=== PATIENT | female | born 1950 | race Caucasian/White ===

== ENCOUNTER 2023-10-08 17:20 | Observation (INO) | payer OTHER, SELFPAY ==
[2023-10-08 12:53] VITALS: BP 157/75
[2023-10-08 13:44] LABS: % Basophils 0.2 % (0-2); % Eosinophils 1.5 % (0-6); % Immature Granulocytes 0.3 % (0-0.5); % Lymphocytes 9.6 % (20.5-51.1); % Neutrophils 80.4 % (42.2-75.2); Absolute Eosinophils 0.1 10^3/uL (0-0.7); Absolute Lymphocytes 0.9 10^3/uL (1.2-3.4); Absolute Monocytes 0.7 10^3/uL (0.1-0.6); Absolute Neutrophils 7.4 10^3/uL (1.4-6.5); Hemoglobin 9.2 g/dL (12.0-16.0); Mean Corp Hgb Conc. 29.7 g/dL (33.0-37.0); Mean Corpuscular Hgb 22.2 pg (27.0-31.0); Mean Corpuscular Volume 74.7 fL (81.0-99.0); Mean Platelet Volume 9.7 fL (7.4-10.4); Nucleated Red Blood Cells % 0 %; Platelet Count 546 10^3/uL (130-400); Red Blood Cell Count 4.15 10^6/uL (4.20-5.40); Red Cell Dist. Width 19.7 % (11.5-14.5); White Blood Cell Count 9.2 10^3/uL (4.8-10.8)
[2023-10-08 14:16] LABS: Troponin I 0.013 ng/ml
[2023-10-08 14:27] LABS: ALT (SGPT) 13 U/L (0-35); AST (SGOT) 21 U/L (14-36); Albumin 3.3 g/dl (3.5-5.0); Alkaline Phosphatase 101 U/L (38-126); Blood Urea Nitrogen 15 mg/dl (7-17); Calcium 8.6 mg/dl (8.4-10.2); Carbon Dioxide 35 mmol/L (22-30); Chloride 100 mmol/L (98-107); Glucose 88 mg/dl (70-99); Magnesium 1.8 mg/dl (1.6-2.3); Potassium 2.6 mmol/L (3.5-5.1); Sodium 139 mmol/L (135-145); Total Bilirubin 0.5 mg/dl (0.2-1.3); Total Protein 6.4 g/dl (6.3-8.2); eGFR > 60.00
--- NOTE | 2023-10-08 15:04 | ED.GENMED ---
History of Present Illness
General
Chief Complaint: Abnormal Lab Value
Source: patient
Time Seen by Provider: 10/08/23 13:24
Travel History
Have you had any contact with someone who has COVID-19?: Unable to Answer
Do you have any symptoms of coronavirus? Fever > 100 degrees, chills, cough, shortness of breath, sore throat, loss of taste or smell, muscle aches, or headache?: No
History of Present Illness
History of Present Illness:
73-year-old female with past medical history of hypertension, hyperlipidemia, CAD presenting to the emergency department for evaluation after her cardiology office contact her to let her know outpatient lab work revealed a low potassium. Patient
states that she was just having routine blood work done when this was found. She notes that 'while not feeling as well as she did 2 years ago she feels pretty normal'. She denies any chest pain, palpitations, diaphoresis, exertional dyspnea,
abdominal pain, nausea, vomiting, diarrhea. Patient does take a daily Lasix tablet. She denies any history of similar. No other concerns at this time.
Past History
Past History
ED Past Medical History: CAD, GERD, HTN, Hypercholesterolemia and Other (Iron deficiency anemia, peptic ulcer disease)
ED Past Surgical History: Cholecystectomy and Other (Partial gastrectomy)
Social History
Tobacco: Smoker
Alcohol: None
Drug: None
Personal:
Living: with family
Review of Systems
Review of Systems
All Other Systems: ROS reviewed and negative except as documented in HPI and ROS
Phy Exam
Physical Exam
Physical Exam:
GENERAL: Alert , in no apparent distress, very thin, oxygen saturation is between 87 and 90% on room air but patient is in no acute respiratory distress
EYE: conjunctiva clear
NECK: Supple
ENT: o/p clr, mmm.
CARDIAC: Regular rate and rhythm
LUNGS: Clear breath sounds bilaterally, no acute respiratory distress, no wheezes/rales/rhonchi
NEUROLOGICAL: Alert and oriented
SKIN: Warm and dry, skin intact.
MUSCULOSKELETAL: well perfused.
PSYCH: Normal and appropriate interaction.
Scores
Heart Failure Risk
Heart Failure Risk Score: Not Applicable
Heart Score for Chest Pain Patients
STEMI patient?: Not applicable
Withdrawal Assessment of Alcohol
Withdrawal Assessment Completed?: Not applicable
Course
Orders/Labs/Results
Orders:
Orders
10/08/23 12:57
Electrocardiogram (*1) Urgent
Reason for Study: Chest Pain
EKG- Treatment ONCE
10/08/23 13:15
Add On- LAB Urgent
Tests Added?: magnesium
10/08/23 13:35
Complete Blood Count/With Diff Urgent
Comprehensive Metabolic Panel Urgent
Magnesium Urgent
Troponin I Urgent
10/08/23 14:51
COVID-19 Antigen Urgent
Source: Nasal Swab
CR Chest - 2 Views Urgent
Comment:
Reason For Exam: hypoxia
10/08/23 15:03
Potassium Chloride [KCl] 40 meq PO NOW STA
10/08/23 15:09
Potassium Chloride [KCl] 40 meq 0.9% Sodium Chloride 250 ml [Nss] 250 ml IV NOW
Abnormal Lab Results
10/08/23
13:35
RBC 4.15 L 10^6/uL
(4.20-5.40)
Hgb 9.2 L g/dL
(12.0-16.0)
Hct 31.0 L %
(37.0-47.0)
MCV 74.7 L fL
(81.0-99.0)
MCH 22.2 L pg
(27.0-31.0)
MCHC 29.7 L g/dL
(33.0-37.0)
RDW 19.7 H %
(11.5-14.5)
Plt Count 546 H 10^3/uL
(130-400)
Absolute Neuts (auto) 7.4 H 10^3/uL
(1.4-6.5)
Absolute Lymphs (auto) 0.9 L 10^3/uL
(1.2-3.4)
Absolute Monos (auto) 0.7 H 10^3/uL
(0.1-0.6)
Neutrophils % 80.4 H %
(42.2-75.2)
Lymphocytes % 9.6 L %
(20.5-51.1)
Potassium 2.6 L* mmol/L
(3.5-5.1)
Carbon Dioxide 35 H mmol/L
(22-30)
Creatinine 0.5 L mg/dL
(0.6-1.0)
Albumin 3.3 L g/dl
(3.5-5.0)
10/08/23 13:35
10/08/23 13:35
Vital Signs
Initial and Last Documented VS:
Initial Vital Signs
Temp Pulse Resp BP Pulse Ox
98.4 F 85 18 157/75 92
10/08/23 12:53 10/08/23 12:53 10/08/23 12:53 10/08/23 12:53 10/08/23 12:53
Last Documented Vital Signs
Temp Pulse Resp BP Pulse Ox
98.4 F 85 18 157/75 92
10/08/23 12:53 10/08/23 12:53 10/08/23 12:53 10/08/23 12:53 10/08/23 12:53
MDM/Problems Addressed
Differential Diagnosis Includes:
Hypokalemia secondary to diuretic usage, she has no GI symptoms that would lead to a low potassium. At this time unclear etiology of patient's hypoxia and she is noting no respiratory complaints. Patient does have a smoking history so I do suspect
there could be an underlying component of COPD
MDM/Problems Addressed:
73-year-old female presenting emergency department for evaluation of low potassium. Labs were initiated in triage which reveals a mild anemia as well as a potassium level of 2.6. Magnesium within normal limits. I suspect patient's Lasix to be the
culprit of her hypokalemia. Will order oral and IV repletion. Patient's oxygen saturation was persistently in the upper 80s during my exam but she is in no acute respiratory distress. Chest x-ray and COVID testing ordered. Plan for admission.
*Radiology
Radiology exam reviewed: preliminary read by ED provider (Unremarkable chest x-ray)
*Pulse Oximetry
Patient hypoxic: yes
*EKG
Interpreted by ED Provider?: Yes
Comparison EKG: no changes
Heart Rate: 73
Rate: normal
Rhythm: sinus
[place]: left axis deviation
QRS Pattern: left bundle branch block
*Molding Machine Tender Interpretation
Rate: normal
Rhythm: sinus
*Critical Care Note
Total Time (30-74mins, 75-104mins- exclusive of procedures): Not Applicable
Data Reviewed
Review of Other/Old Records Reveals: Labs and Records
Source: patient
Patient Management
Discussion with other providers: Hospitalist
Escalation/DeEscalation of care consider admission/obs:
Hospitalist is aware and accepts patient for continued evaluation and treatment.
ED Attending Note
-
Portions of this chart may have been created with voice recognition software.� Occasional wrong word or��sound alike� substitutions may have occurred due to the inherent limitations of voice recognition software.
Discharge Plan
Departure
Patient Disposition: Admit
Date of Disposition: 10/08/23
Time of Disposition: 15:05
Presentation/result/management discussed w/ accepting MD/DO: Hospitalist
Discharge Problem:
Acute hypokalemia, Hypoxia
Prescriptions:
No Action
pantoprazole 40 MG tablet,delayed release (DR/EC)
40 mg PO DAILY
furosemide 20 mg Tablet
20 mg PO DAILY Qty: 30 0RF
metoprolol succinate 25 mg Tablet Extended Release 24 Hr
37.5 mg PO DAILY Qty: 90 0RF
aspirin 81 mg Tablet,Delayed Release (Dr/Ec)
81 mg PO DAILY
cholecalciferol (vitamin D3) 25 mcg (1,000 unit) Tablet
25 mcg PO DAILY
Slow Fe 142 mg (45 mg iron) Tablet Extended Release
142 mg PO DAILY
cyanocobalamin (vitamin B-12) 2,000 mcg Tablet
2,000 mcg PO DAILY
Entresto 24-26 mg Tablet
1 tab PO BID
pregabalin 25 mg Capsule
25 mg PO BID
Patient Comments:
10/08/2023, pt. filled this med. on 09/15/2023 for 90 capsules according to PDMP.
atorvastatin 20 mg tablet
20 mg PO DAILY
amlodipine 10 MG tablet
5 mg PO DAILY
Patient Comments:
10/08/2023, pt. states to be taking half a tablet daily.
Referrals:
Anitra Aguilera DO [Family Provider] -
Interventions
Interventions:
*Risk Screen - Suicide Last Done: 10/08/23 12:53
*General Assessment Last Done: 10/08/23 12:53
*Neglect/Abuse Screening Last Done: 10/08/23 12:53
[2023-10-08] MEDS: KCL 40 MEQ PO (16:18)
[2023-10-08] MEDS: KCL 270 MEQ IV (16:19)
[2023-10-08 16:29] VITALS: BP 142/70
[2023-10-08 16:31] VITALS: BMI 17.3
--- NOTE | 2023-10-08 16:54 | W.PN.HOSP.TC ---
Today's Communication/Plan
-
KCL supplement
Assessment / Plan
Assessment / Plan
Hypokalemia
noted on routine outpt labs
Hx of chronic Fe defic anemia
will check Fe levels and tx with IV Fe while here if labs confirm
thought to be due to chronic malabsorption due to prior gastric surgery 30+ yrs ago
CAD
on chronic statin
Hx of HFmrEF
P:cardio consult
check Fe studies
KCL supplement
full code
see dictated note
Anticipated Discharge: 24 - 48 hours
Subjective/Interval History
-
Date of Service: October 08, 2023
Sent to ER by Dr Caba for hypokalemia
Objective Data
-
Labs:
Laboratory Results
10/08/23
13:35
WBC 9.2
Hgb 9.2 L
Hct 31.0 L
Plt Count 546 H
Sodium 139
Potassium 2.6 L*
Chloride 100
Carbon Dioxide 35 H
BUN 15
Creatinine 0.5 L
Glucose 88
Calcium 8.6
Total Bilirubin 0.5
AST 21
ALT 13
Alkaline Phosphatase 101
Vital Signs:
Vital Signs
Temp Pulse Resp BP Pulse Ox
98.4 F 85 18 142/70 95
10/08/23 12:53 10/08/23 12:53 10/08/23 12:53 10/08/23 16:29 10/08/23 16:34
Review of Systems
-
History Source: Patient, Physician and Coordinated Provider
Constitutional: Denies Fever
EENT: Reports No Symptoms Reported
Respiratory: Reports No Symptoms
Cardiac: Reports No Symptoms; Denies Chest Pain or Palpitations
Abdomen/GI: Reports No Symptoms
Genitourinary: Reports No Symptoms
Musculoskeletal: Reports No Symptoms
Physical Exam
-
General: Well Developed, No Apparent Distress, Comfortable and Cachectic
HEENT: Normocephalic, Atraumatic and Moist Mucous Membranes
Respiratory: Clear to Auscultation; Negative Wheezes, Rales or Rhonchi
Cardiac: Regular Rhythm and S1/S2
GI: Soft, Nontender and Nondistended
Musculoskeletal: No Clubbing, No Cyanosis, No Edema and Other (muscle atrophy)
Skin: Warm and Dry
Neuro: Awake, Alert and Oriented
[2023-10-08 17:00] VITALS: BP 128/91
[2023-10-08 17:01] LABS: COVID-19 Antigen Negative (Negative)
--- NOTE | 2023-10-08 17:07 | W.PN.CD ---
Addendum entered and electronically signed by Nick Shrestha MD 10/08/23 17:32:
I saw and examined the patient.
The SCHOOL COUNSELLOR's note was reviewed and I agree with the note.
Comment: 73 y/o female (patient of Dr. Caba) with NICM 40-45%, non-obstructive CAD (60% lcx by cath 2022), hypertension, LBBB, PUD s/p Billroth II procedure, Iron deficiency anemia, orthostasis (which required reduced amlodipine) who is here due
to routine OP blood-work revealing a potassium of 2.6. She has no complaints. She has never been on spironolactone. ON exam she is thin, rrr/ no m/r/g. lungs cta. As below with add GDMT which will also help with her hypokalemia in lieu of
amlodipine.
Original Note:
Today's Communication / Plan
-
-Replace potassium and recheck in AM
-Hold Lasix
-Stop amlodipine and start spironolactone
-follow telemetry
Impression / Plan
-
Assessment/Plan: 73 y/o female (patient of Dr. Caba) with NICM 40-45%, non-obstructive CAD (60% lcx by cath 2022), hypertension, LBBB, PUD s/p Billroth II procedure, Iron deficiency anemia, orthostasis (which required reduced amlodipine) who is
here due to routine OP blood-work revealing a potassium of 2.6. She is feeling well and has no complaints.
Hypokalemia: severe
-requiring hospitalization and getting IV and PO replacement now
-hold Lasix
-check labs in AM
-may add Aldactone
-follow telemetry
HTN:
-stop amlodipine and start spironolactone
-also on Entresto and metoprolol
LBBB:
-chronic, stable
NICM 40-45%:
-does not appear volume overloaded
-continue Entresto and metoprolol
-add Aldactone as above
CAD:
-stable without CP
-continue ASA, statin, and BB
Subjective:
Feels well
No CP, SOB, dizziness, or palps
Physical Exam
Vital Signs/Labs
Vital Signs
Temp Pulse Resp BP Pulse Ox
98.4 F 85 18 142/70 95
10/08/23 12:53 10/08/23 12:53 10/08/23 12:53 10/08/23 16:29 10/08/23 16:34
10/07/23 10/08/23 10/09/23
06:59 06:59 06:59
Actual Weight 48.7 kg
10/08/23 13:35
10/08/23 13:35
Magnesium 1.8 mg/dl (1.6-2.3) 10/08/23 13:35
LAB Results
10/08/23
13:35
Troponin I 0.013
Physical Exam
Constitutional: No acute distress
EENT: Anicteric
Cardiovascular: Rhythm & rate is regular and Pedal edema is absent
Respiratory: Respiratory effort normal and Lungs clear to auscul.
Neuro/Psych: AO x 3
Other: Skin (warm and dry)
Data Reviewed
-
Date of Service: October 08, 2023
EKG: Tracing Personally Visualized and interpreted (SR with LBBB)
Labs: Labs Reviewed by me
[2023-10-08 17:45] VITALS: BP 149/76; BMI 15.6
--- NOTE | 2023-10-08 18:40 | PTCARENOTE ---
Received patient from ED AAOx3. Pt oriented to room. K rider infusing without difficulty. Tolerated diet well. Offered no complaints. Made patient comfortable. Cont to assess patient status.
[2023-10-08] MEDS: KCL 20 MEQ PO (20:19)
[2023-10-08] MEDS: ENTRESTO 24 MG/26 MG 1 TAB PO (20:19)
[2023-10-08] MEDS: LYRICA 25 MG PO (20:19)
[2023-10-08] MEDS: HEPARIN 5000 UNITS SC (20:22)
[2023-10-08 23:00] VITALS: BP 127/72
[2023-10-09 03:00] VITALS: BP 128/79
[2023-10-09 06:00] VITALS: BMI 15.5
[2023-10-09 07:30] VITALS: BP 131/76
[2023-10-09 08:15] LABS: Hematocrit 29.5 % (37.0-47.0); Hemoglobin 8.6 g/dL (12.0-16.0); Mean Corp Hgb Conc. 29.2 g/dL (33.0-37.0); Mean Corpuscular Hgb 22.2 pg (27.0-31.0); Mean Corpuscular Volume 76.2 fL (81.0-99.0); Mean Platelet Volume 10.1 fL (7.4-10.4); Platelet Count 526 10^3/uL (130-400); Red Blood Cell Count 3.87 10^6/uL (4.20-5.40); Red Cell Dist. Width 19.5 % (11.5-14.5); White Blood Cell Count 7.4 10^3/uL (4.8-10.8)
[2023-10-09 08:36] LABS: Blood Urea Nitrogen 13 mg/dl (7-17); Calcium 8.4 mg/dl (8.4-10.2); Carbon Dioxide 37 mmol/L (22-30); Chloride 102 mmol/L (98-107); Estimated Creatinine Clearance 57 ml/min; Glucose 89 mg/dl (70-99); Iron 26 ug/dl (37-170); Magnesium 1.8 mg/dl (1.6-2.3); Sodium 141 mmol/L (135-145); eGFR > 60.00
[2023-10-09 08:45] LABS: Percent Saturation 7 % (20-50); Total Iron Binding Capacity 345 ug/dl (265-497)
[2023-10-09] MEDS: HEPARIN 5000 UNITS SC ×2 (08:59→19:51)
[2023-10-09] MEDS: ENTRESTO 24 MG/26 MG 1 TAB PO ×2 (09:00→19:48)
[2023-10-09] MEDS: ALDACTONE 25 MG PO ×2 (09:00→13:22)
[2023-10-09] MEDS: FEOSOL 325 MG PO (09:00)
[2023-10-09] MEDS: LYRICA 25 MG PO ×2 (09:00→19:50)
[2023-10-09] MEDS: PROTONIX 40 MG PO (09:01)
[2023-10-09] MEDS: ASPIR LOW (ENTERIC COATED) 81 MG PO (09:01)
[2023-10-09] MEDS: TOPROL XL 37.5 MG PO (09:01)
[2023-10-09] MEDS: LIPITOR 20 MG PO (09:02)
[2023-10-09] MEDS: VITAMIN D3 (cholecalciferol) 25 MCG PO (09:02)
[2023-10-09] MEDS: KCL 20 MEQ PO ×2 (09:02→19:50)
[2023-10-09] MEDS: VITAMIN B-12 2000 MCG PO (09:02)
[2023-10-09 09:08] LABS: TSH 1.61 uIU/ml (0.47-4.68)
[2023-10-09 09:12] LABS: Ferritin 7.9 ng/ml (11.1-264.0)
[2023-10-09 09:43] LABS: Vitamin B12 > 1000 pg/ml (239-931)
--- NOTE | 2023-10-09 09:59 | W.PN.CD ---
Today's Communication / Plan
-
increase spironolactone to 50mg daily
mag ox today for replacement
anticipate d/c tomorrow
Impression / Plan
-
Assessment/Plan: 73 y/o female (patient of Dr. Caba) with NICM 40-45%, non-obstructive CAD (60% lcx by cath 2022), hypertension, LBBB, PUD s/p Billroth II procedure, Iron deficiency anemia, orthostasis (which required reduced amlodipine) who is
here due to routine OP blood-work revealing a potassium of 2.6. She is feeling well and has no complaints.
Hypokalemia: severe
-Spironolactone 50mg daily
- hold lasix
-check labs in AM
-follow telemetry
HTN:
-stop amlodipine and start spironolactone
-also on Entresto and metoprolol
LBBB:
-chronic, stable
NICM 40-45%:
-does not appear volume overloaded
-continue Entresto and metoprolol
-add Aldactone as above
CAD:
-stable without CP
-continue ASA, statin, and BB
Subjective:
Feels well
No CP, SOB, dizziness, or palps
Physical Exam
Vital Signs/Labs
Vital Signs
Temp Pulse Resp BP Pulse Ox
98.4 F 71 18 131/76 96
10/09/23 07:30 10/09/23 07:30 10/09/23 07:30 10/09/23 07:30 10/09/23 09:10
10/08/23 10/09/23 10/10/23
06:59 06:59 06:59
Actual Weight 96 lb 1 oz
10/09/23 07:25
10/09/23 07:25
Magnesium 1.8 mg/dl (1.6-2.3) 02/09/24 07:25
TSH 1.61 uIU/ml (0.47-4.68) 10/09/23 07:25
LAB Results
10/08/23
13:35
Troponin I 0.013
Physical Exam
Constitutional: No acute distress
EENT: Anicteric
Cardiovascular: Rhythm & rate is regular and Pedal edema is absent
Respiratory: Respiratory effort normal and Lungs clear to auscul.
GI: Soft
Neuro/Psych: AO x 3
Data Reviewed
-
Date of Service: October 09, 2023
EKG: Report Reviewed by me
Echo: Report Reviewed by me
Labs: Labs Reviewed by me
[2023-10-09 10:23] LABS: Urine Albumin Trace (Neg - Trace); Urine Bilirubin Negative (Negative); Urine Character Clear (Clear); Urine Color Yellow; Urine Glucose Negative (Negative); Urine Ketone Negative (Negative); Urine Leukocyte Trace (Negative); Urine Nitrite Negative (Negative); Urine Occult Blood 1+ (Negative); Urine Urobilinogen Negative (Neg - 1+)
[2023-10-09 11:34] LABS: Urine Squamous Cell 26-30 /LPF (Few)
[2023-10-09 11:36] LABS: Urine Bacteria Few (Negative)
[2023-10-09] MEDS: MAGNESIUM OXIDE 500 MG PO ×2 (12:44→19:50)
--- NOTE | 2023-10-09 13:41 | W.PN.HOSP.TC ---
Today's Communication/Plan
-
IV Fe
continue KCL supplement
recheck labs in AM
Assessment / Plan
Assessment / Plan
Hypokalemia
noted on routine outpt labs
will continue K supplement
2.6-->3.0
Mag 1.8
Hx of chronic Fe defic anemia
Fe sat 7%, Ferritin 7.9
thought to be due to chronic malabsorption due to prior gastric surgery 30+ yrs ago
IV Fe has been ordered
CAD
on chronic statin
Hx of HFmrEF
P:cardio consult appreciated
they would like to hold Lasix and use Aldactone 50 mg daily
KCL supplement to continue
IV Fe
recheck labs in AM
full code
Anticipated Discharge: 24 - 48 hours
Subjective/Interval History
-
Date of Service: October 09, 2023
Awake, alert, is feeling better
Objective Data
-
Labs:
Laboratory Results
10/09/23
07:25
WBC 7.4
Hgb 8.6 L
Hct 29.5 L
Plt Count 526 H
Sodium 141
Potassium 3.0 L
Chloride 102
Carbon Dioxide 37 H
BUN 13
Creatinine 0.6
Glucose 89
Calcium 8.4
Vital Signs:
Vital Signs
Temp Pulse Resp BP Pulse Ox
98.4 F 71 18 131/76 96
10/09/23 07:30 10/09/23 07:30 10/09/23 07:30 10/09/23 07:30 10/09/23 09:10
I&O
10/08/23 10/09/23 10/10/23
06:59 06:59 06:59
Intake Total 120 / 120
Balance 120 / 120
Review of Systems
-
History Source: Patient, Physician and Coordinated Provider
Constitutional: Denies Fever
EENT: Reports No Symptoms Reported
Respiratory: Reports No Symptoms
Cardiac: Reports No Symptoms; Denies Chest Pain or Palpitations
Abdomen/GI: Reports No Symptoms
Genitourinary: Reports No Symptoms
Musculoskeletal: Reports No Symptoms
Physical Exam
-
General: Well Developed, No Apparent Distress, Comfortable and Cachectic
HEENT: Normocephalic, Atraumatic and Moist Mucous Membranes
Respiratory: Clear to Auscultation; Negative Wheezes, Rales or Rhonchi
Cardiac: Regular Rhythm and S1/S2
GI: Soft, Nontender and Nondistended
Musculoskeletal: No Clubbing, No Cyanosis, No Edema and Other (muscle atrophy)
Skin: Warm and Dry
Neuro: Awake, Alert and Oriented
[2023-10-09] MEDS: FERRLECIT 110 MG IV (14:48)
[2023-10-09 15:00] VITALS: BP 139/82
--- NOTE | 2023-10-09 15:15 | CM ---
Alert awake oriented patient who lives with Wes in a 1 story home with 1 step to enter and bath/ bed room on first floor. She is independent in driving and all activities of daily living.No adaptive devices.Offered VN she declined. She
said she will resume out pt PT by herself at sd.
No SNF/VN hx
Pharmacy [facility]
PCP Dr Aguilera
PLAN Home no needs (She will set up her own out pt PT.)
[2023-10-09 15:35] VITALS: BMI 15.5
--- NOTE | 2023-10-09 17:32 | PTCARENOTE ---
Received patient this am AAOx3. K 3.0 patient received standing PO Potassium BID. Tolerated diet well. Pt OOB ambulating in room. Pt offered no complaints. Made patient comfortable. Cont to assess patient status.
[2023-10-09 19:17] VITALS: BP 109/71
[2023-10-09 23:29] VITALS: BP 139/63
[2023-10-10 03:50] VITALS: BP 110/62
[2023-10-10 06:19] LABS: Hematocrit 28.7 % (37.0-47.0); Hemoglobin 8.5 g/dL (12.0-16.0); Mean Corp Hgb Conc. 29.6 g/dL (33.0-37.0); Mean Corpuscular Hgb 22.3 pg (27.0-31.0); Mean Corpuscular Volume 75.3 fL (81.0-99.0); Platelet Count 502 10^3/uL (130-400); Red Blood Cell Count 3.81 10^6/uL (4.20-5.40); Red Cell Dist. Width 19.7 % (11.5-14.5); White Blood Cell Count 8.4 10^3/uL (4.8-10.8)
[2023-10-10 06:52] LABS: Blood Urea Nitrogen 13 mg/dl (7-17); Calcium 8.9 mg/dl (8.4-10.2); Carbon Dioxide 35 mmol/L (22-30); Chloride 102 mmol/L (98-107); Estimated Creatinine Clearance 57 ml/min; Glucose 90 mg/dl (70-99); Potassium 3.4 mmol/L (3.5-5.1); Sodium 140 mmol/L (135-145); eGFR > 60.00
[2023-10-10 07:57] VITALS: BP 127/76
[2023-10-10] MEDS: ENTRESTO 24 MG/26 MG 1 TAB PO (08:31)
[2023-10-10] MEDS: LYRICA 25 MG PO (08:32)
[2023-10-10] MEDS: TOPROL XL 37.5 MG PO (08:32)
[2023-10-10] MEDS: ASPIR LOW (ENTERIC COATED) 81 MG PO (08:32)
[2023-10-10] MEDS: LIPITOR 20 MG PO (08:32)
[2023-10-10] MEDS: PROTONIX 40 MG PO (08:32)
[2023-10-10] MEDS: VITAMIN D3 (cholecalciferol) 25 MCG PO (08:33)
[2023-10-10] MEDS: FEOSOL 325 MG PO (08:33)
[2023-10-10] MEDS: HEPARIN 5000 UNITS SC (08:33)
[2023-10-10] MEDS: KCL 20 MEQ PO (08:33)
[2023-10-10] MEDS: VITAMIN B-12 2000 MCG PO (08:33)
[2023-10-10] MEDS: ALDACTONE 50 MG PO (08:37)
[2023-10-10 09:03] VITALS: BMI 15.4
--- NOTE | 2023-10-10 09:43 | PTCARENOTE ---
At 0925 pt. with 15 beat vtach, pt. resting in bed at this time, asymptomatic. Dr. Ramachandran at bedside, made aware. Will continue to monitor and report on pt.
--- NOTE | 2023-10-10 10:02 | W.PN.CD ---
Addendum entered and electronically signed by Cameron Haro MD 10/10/23 11:05:
73 yo female with NICM, LBBB admitted with severe hypokalemia. She reports no CP/SOB/edema. Exam with RRR, no murmurs, no edema. EKG: NSR, LBBB. Tele: SR with brief SVT with LBBB aberrancy.
# Hypokalemia: improved
-lasix stopped; s/p Kcl supplementation
-aldactone 50mg daily is new
-check BMP in one week to advise if Kcl is needed as outpatient
# SVT with aberrancy on tele
-no sxs
- increase Toprol XL to 50mg daily
# NICM
-cont Toprol XL, entresto, and aldactone
Original Note:
Today's Communication / Plan
-
-continue spironolactone 50 mg PO daily. Remain off lasix and amlodipine. Increase metoprolol to 50 mg daily. Check BMP early next week. Follow-up in our office will be arranged.
Impression / Plan
-
Assessment/Plan: 73 y/o female (patient of Dr. Caba) with NICM 40-45%, non-obstructive CAD (60% lcx by cath 2022), hypertension, LBBB, PUD s/p Billroth II procedure, Iron deficiency anemia, orthostasis (which required reduced amlodipine) who is
here due to routine OP blood-work revealing a potassium of 2.6. She is feeling well and has no complaints.
Hypokalemia: severe
-improving
-Spironolactone 50mg daily added to regimen
-lasix remains on hold
-potassium being replaced
-magnesium replaced
HTN:
-stop amlodipine and start spironolactone
-also on Entresto and metoprolol
LBBB:
-chronic, stable
NICM 40-45%:
-does not appear volume overloaded
-continue Entresto and metoprolol
-continue aldactone as above
CAD:
-stable without CP
-continue ASA, statin, and BB
Subjective:
Feels well
No CP, SOB, dizziness, or palps
Physical Exam
Vital Signs/Labs
Vital Signs
Temp Pulse Resp BP Pulse Ox
97.8 F 81 16 127/76 93
10/10/23 07:57 10/10/23 08:31 10/10/23 07:57 10/10/23 08:31 10/10/23 07:57
10/09/23 10/10/23 10/11/23
06:59 06:59 06:59
Actual Weight 43.573 kg 43.261 kg
10/10/23 05:23
10/10/23 05:23
Magnesium 2.0 mg/dl (1.6-2.3) 10/10/23 05:23
TSH 1.61 uIU/ml (0.47-4.68) 10/09/23 07:25
LAB Results
10/08/23
13:35
Troponin I 0.013
Physical Exam
Constitutional: No acute distress
EENT: Anicteric
Cardiovascular: Rhythm & rate is regular
Respiratory: Respiratory effort normal and Lungs clear to auscul.
Neuro/Psych: AO x 3
Other: Skin (warm and dry)
Data Reviewed
-
Date of Service: October 10, 2023
EKG: Ordered by me (SR with aberrancy)
Labs: Labs Reviewed by me
[2023-10-10 11:10] VITALS: BP 157/90
[2023-10-10] MEDS: TOPROL XL 12.5 MG PO (11:12)
--- NOTE | 2023-10-10 13:46 | W.PN.HOSP.TC ---
Today's Communication/Plan
-
dc to home
Assessment / Plan
Assessment / Plan
Hypokalemia
noted on routine outpt labs
will continue K supplement
2.6-->3.0-->3.4
Mag 1.8-->2.0
Hx of chronic Fe defic anemia
Fe sat 7%, Ferritin 7.9
thought to be due to chronic malabsorption due to prior gastric surgery 30+ yrs ago
IV Fe has been ordered, to receive x 2, will need to set up as outpt
CAD
on chronic statin
PSVT noted on monitor
Cardio will increase Metoprolol to 50 mg daily
Hx of HFmrEF
P:cardio consult appreciated
they would like to hold Lasix and use Aldactone 50 mg daily
KCL supplement to stop on dc
IV Fe
dc now
see dictated note
More than 30 minutes spent in discharge including
Final examination of the patient
Summarizing hospital stay
Instructions for continuing care to all relevant caregivers
Preparation of discharge records, prescriptions, and referral forms
Total time spent (in minutes): 45
full code
Anticipated Discharge: Today
Subjective/Interval History
-
Date of Service: October 10, 2023
Pt feels well and is anxiously awaiting dc
Objective Data
-
Labs:
Laboratory Results
10/10/23
05:23
WBC 8.4
Hgb 8.5 L
Hct 28.7 L
Plt Count 502 H
Sodium 140
Potassium 3.4 L
Chloride 102
Carbon Dioxide 35 H
BUN 13
Creatinine 0.5 L
Glucose 90
Calcium 8.9
Vital Signs:
Vital Signs
Temp Pulse Resp BP Pulse Ox
97.8 F 90 18 157/90 96
10/10/23 11:10 10/10/23 11:12 10/10/23 11:10 10/10/23 11:12 10/10/23 11:10
I&O
10/09/23 10/10/23 10/11/23
06:59 06:59 06:59
Intake Total 120 / 120
Balance 120 / 120
Review of Systems
-
History Source: Patient, Physician and Coordinated Provider
Constitutional: Denies Fever
EENT: Reports No Symptoms Reported
Respiratory: Reports No Symptoms
Cardiac: Reports No Symptoms; Denies Chest Pain or Palpitations
Abdomen/GI: Reports No Symptoms
Genitourinary: Reports No Symptoms
Musculoskeletal: Reports No Symptoms
Physical Exam
-
General: Well Developed, No Apparent Distress, Comfortable and Cachectic
HEENT: Normocephalic, Atraumatic and Moist Mucous Membranes
Respiratory: Clear to Auscultation; Negative Wheezes, Rales or Rhonchi
Cardiac: Regular Rhythm and S1/S2
GI: Soft, Nontender and Nondistended
Musculoskeletal: No Clubbing, No Cyanosis, No Edema and Other (muscle atrophy)
Skin: Warm and Dry
Neuro: Awake, Alert and Oriented
[2023-10-10] MEDS: FERRLECIT 110 MG IV (13:53)
--- NOTE | 2023-10-10 14:32 | W.DS.TRANS ---
DC Summary - Machine Set Up Technician
-
Discharge Instructions:
Discharge Diagnosis/Procedures Hypokalemia
Diet Regular,No added salt
Activity No restrictions
Additional Activity consider IV iron infusions
Driving Restrictions As prior to admission
Bathing Restrictions None
Blood Work BMP 5 days- slip electronically sent to [facility]
CBC in 2 weeks
Stop these medications: Lasix, Amlodipine, change Metoprolol to 50 mg
daily
Instructions:
Stand-Alone Forms:
Changes to Home Medications: Yes
Discharge Medications:
DC Medications w/original date entered in [employer]
pantoprazole 40 mg tablet,delayed release 40 mg PO DAILY Gastrointestinal Issue 01/23/23
aspirin 81 mg tablet,delayed release 81 mg PO DAILY 10/08/23
atorvastatin 20 mg tablet 20 mg PO DAILY 10/08/23
cholecalciferol (vitamin D3) 25 mcg (1,000 unit) tablet 25 mcg PO DAILY 10/08/23
cyanocobalamin (vitamin B-12) 2,000 mcg tablet 2,000 mcg PO DAILY 10/08/23
ferrous sulfate 142 mg (45 mg iron) tablet,extended release 142 mg PO DAILY 10/08/23
pregabalin 25 mg capsule 25 mg PO BID 10/08/23
sacubitril 24 mg-valsartan 26 mg tablet (Entresto) 1 tab PO BID 10/08/23
metoprolol succinate 50 mg tablet,extended release 24 hr 50 mg PO DAILY #30 tabs 10/10/23
spironolactone 50 mg tablet 50 mg PO DAILY #30 tabs 10/10/23
Home Medication Changes
stop Lasix
increase Toprol XL to 50 mg daily
start Aldactone 50 mg daily
stop Amlodipine
Pending Results: No
[2023-10-10 15:55] VITALS: BP 141/75
[2023-10-10] MEDS: FLUZONE HIGH-DOSE QUAD 2023-24 0.699999999999999956 ML IM (16:28)
== END 2023-10-10 17:09 | disposition home or self-care (01) ==
LOC: 4 EAST ACU 17:20
PROVIDERS: Emergency Medicine; Physician Assistant Medical; ADMITTING PHYSICIAN Internal Medicine; EMERGENCY PHYSICIAN Emergency Medicine; FAMILY PHYSICIAN Emergency Medicine
DX: E87.6 Hypokalemia (principal); E78.5 Hyperlipidemia, unspecified; I25.10 Atherosclerotic heart disease of native coronary artery without angina pectoris; F17.200 Nicotine dependence, unspecified, uncomplicated; R07.9 Chest pain, unspecified; R09.02 Hypoxemia; I50.22 Chronic systolic (congestive) heart failure; K91.2 Postsurgical malabsorption, not elsewhere classified; I44.7 Left bundle-branch block, unspecified; I42.8 Other cardiomyopathies; I11.0 Hypertensive heart disease with heart failure; K21.9 Gastro-esophageal reflux disease without esophagitis; E78.00 Pure hypercholesterolemia, unspecified; D50.9 Iron deficiency anemia, unspecified; Z87.11 Personal history of peptic ulcer disease; Z79.82 Long term (current) use of aspirin; Z98.84 Bariatric surgery status; Z23 Encounter for immunization; Z11.52 Encounter for screening for COVID-19
CPT/HCPCS: 90662; G0008; 71046; 80048; 80053; 81003; 81015; 82607; 82728; 82746; 83540; 83550; 83735; 84443; 84484; 85025; 85027; 87811; 93005; 96374; 99285; G0378; J2916

== ENCOUNTER 2023-12-30 01:22 | Inpatient (IN) | payer OTHER, SELFPAY ==
[2023-12-29 23:21] VITALS: BP 200/109
[2023-12-29 23:35] VITALS: PULSE 109; PULSE 2
[2023-12-29 23:38] LABS: % Basophils 0.5 % (0-2); % Immature Granulocytes 0.5 % (0-0.5); % Monocytes 10.2 % (1.7-9.3); % Neutrophils 46.8 % (42.2-75.2); Absolute Basophils 0.1 10^3/uL (0-0.2); Absolute Eosinophils 0.3 10^3/uL (0-0.7); Absolute Immature Granulocytes 0.1 10^3/uL (0-0.05); Absolute Lymphocytes 5.9 10^3/uL (1.2-3.4); Absolute Monocytes 1.5 10^3/uL (0.1-0.6); Absolute Neutrophils 6.9 10^3/uL (1.4-6.5); Hematocrit 41.5 % (37.0-47.0); Hemoglobin 11.8 g/dL (12.0-16.0); Mean Corp Hgb Conc. 28.4 g/dL (33.0-37.0); Mean Corpuscular Hgb 22.7 pg (27.0-31.0); Mean Platelet Volume 10.9 fL (7.4-10.4); Nucleated Red Blood Cells % 0 %; Platelet Count 527 10^3/uL (130-400); Red Blood Cell Count 5.19 10^6/uL (4.20-5.40); Red Cell Dist. Width 20.4 % (11.5-14.5); White Blood Cell Count 14.7 10^3/uL (4.8-10.8)
[2023-12-29 23:45] VITALS: BMI 16.1
[2023-12-29] MEDS: NITRO-BID 1 INCH TOPICAL (23:49)
[2023-12-29 23:51] VITALS: BP 183/113
[2023-12-29 23:52] LABS: INR 1.19; PT 14.9 Sec (11.4-14.6)
[2023-12-29 23:53] LABS: APTT 28.2 Sec (23.4-35.0)
[2023-12-29 23:55] LABS: ALT (SGPT) 22 U/L (0-35); AST (SGOT) 50 U/L (14-36); Albumin 3.9 g/dl (3.5-5.0); Alkaline Phosphatase 142 U/L (38-126); Blood Urea Nitrogen 14 mg/dl (7-17); Calcium 9.4 mg/dl (8.4-10.2); Carbon Dioxide 19 mmol/L (22-30); Chloride 104 mmol/L (98-107); Estimated Creatinine Clearance 47 ml/min; Glucose 289 mg/dl (70-99); Magnesium 2.2 mg/dl (1.6-2.3); Potassium 3.7 mmol/L (3.5-5.1); Sodium 138 mmol/L (135-145); Total Bilirubin 0.3 mg/dl (0.2-1.3); Total Protein 7.2 g/dl (6.3-8.2); eGFR > 60.00
--- NOTE | 2023-12-29 23:55 | ED.GENMED ---
History of Present Illness
<LISA Loera - Last Filed: 12/30/23 04:57>
General
Chief Complaint: Breathing Problem
Source: patient and spouse
Exam Limitations: clinical condition
Time Seen by Provider: 12/29/23 23:22
Nursing documentation reviewed up to this point in time: agreed with
Travel History
Have you had any contact with someone who has COVID-19?: No
Do you have any symptoms of coronavirus? Fever > 100 degrees, chills, cough, shortness of breath, sore throat, loss of taste or smell, muscle aches, or headache?: Yes
Symptoms:: SOB
History of Present Illness
History of Present Illness:
This is a 73 year old female with history of iron deficiency anemia, PUD, HTN, HLD who presents in respiratory distress on arrival. Her by besides states patient suddenly began to feel short of breath while she was getting ready for bed.
Symptoms have remained constant since arrival. Her states patient was in her normal state of health prior to tonight. She has not felt chest pain, shortness of breath, or any recent illnesses. Denies cough, fever, leg swelling. She was seen
in October 2023 for acute hypokalemia secondary to diuretic usage. She was also seen in December 2022 for acute hypoxic respiratory failure. Patient is compliant with all her medications and follows with cardiology. 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
She is not on oxygen at home.
Past History
<LISA Loera - Last Filed: 12/30/23 04:57>
Past History
ED Past Medical History: CAD, GERD, HTN, Hypercholesterolemia and Other (Iron deficiency anemia, peptic ulcer disease)
ED Past Surgical History: Cholecystectomy and Other (Partial gastrectomy)
Social History
Tobacco: Smoker
Alcohol: None
Drug: None
Personal:
Living: with family
Review of Systems
<LISA Loera - Last Filed: 12/30/23 04:57>
Review of Systems
Allergies reviewed?: Yes
All Other Systems: Not applicable
Constitutional: Reports no symptoms
EENT: Reports no symptoms
Respiratory: Reports trouble breathing
Cardiac: Reports no symptoms
ABD/GI: Reports no symptoms
: Reports no symptoms
Musculoskeletal: Reports no symptoms
Skin: Reports no symptoms
Neurological: Reports no symptoms
Endocrine: Reports no symptoms
Hematologic/Lymphatic: Reports no symptoms
Psychiatric: Reports no symptoms
Phy Exam
<LISA Loera - Last Filed: 12/30/23 04:57>
General Physical Exam
General Presentation: severe distress
General Skin: cool and pale
General Habitus: normal
General Mental: alert
General Hydration: appears well hydrated
ENT Exam
ENT Exam: EOMI, pharynx normal, neck supple and normocephalic
Eye Exam
Eye Exam: PERRL, cornea clear and conjunctiva normal
Cardiovascular Exam
Cardiovascular Exam: no edema, no murmur, normal peripheral pulses and tachycardia
Pulmonary Exam
Pulmonary Exam: accessory muscle use and respiratory distress
Respiratory Effort: tachypnea
Gastrointestinal Exam
Gastrointestinal Exam: normal bowel sounds, non tender, soft, no organomegaly, no pulsatile mass and non distended
Neurological Exam
Neurological Exam: alert, oriented x3, no motor deficits and speech normal
Musculoskeletal Exam
Musculoskeletal Exam: full ROM and no edema
Skin Exam
Skin Exam: no rash, no petechia and pallor
Psychiatric Exam
Psychiatric Exam: normal mood/affect
Scores
<LISA Loera - Last Filed: 12/30/23 04:57>
Heart Failure Risk
HF Risk Score: 4
Admission Status: HIGH RISK 26.1% Consider SNF treatment or admission to hospital
<Chandan Figueroa DO - Last Filed: 12/30/23 01:29>
Heart Failure Risk
Heart Failure Risk Score: Yes
History of Stroke or TIA: No
History of intubation for respiratory distress: No
Heart rate on ED arrival >/= 110: Yes
SaO2 <90% on arrival on room air: Yes
HR >/=110 during 3min walk test (or too ill to perform test): Yes
ECG has acute ischemic changes: No
Urea >/=12mmol/L (BUN 33.6mg/dL): No
Serum CO2>/=35mmol/L: No
Troponin I or T elevated to [place] Level (0.4mg/dL): No
NT-proBNP >/=5,000ng/L (5,000pg/ml): Yes
HF Risk Score: 4
Admission Status: HIGH RISK 26.1% Consider SNF treatment or admission to hospital
Course
<LISA Loera - Last Filed: 12/30/23 04:57>
Orders/Labs/Results
Orders:
Orders
12/29/23 23:22
Electrocardiogram (*1) Stat
Reason for Study: Other
Other Reason for Exam: chest pain
Cardiac Monitoring- Treatment ONCE
EKG- Treatment ONCE
12/29/23 23:23
CR Chest Portable - 1 View Urgent
Comment:
Reason For Exam: dyspnea
Reason Study Needs to be Portable: Patient Unstable
12/29/23 23:29
Complete Blood Count/With Diff Urgent
Comprehensive Metabolic Panel Urgent
Free T4 Urgent
Comment: ADD ON
Magnesium Urgent
NT-proBNP Urgent
PTT Urgent
Prothrombin Time Urgent
TSH Urgent
Triglycerides Urgent
Comment: ADDED
Troponin I Urgent
12/29/23 23:35
Nitroglycerin Ointment [Nitro-Bid] 1 inch TOPICAL NOW STA
12/30/23 00:08
Propofol 1,000,000 Mcg/100 ml [Diprivan] 1,000,000 mcg in 100 ml .ROUTE .STK-MED
12/30/23 00:23
CR Chest Portable - 1 View Urgent
Comment:
Reason For Exam: post intubation
Reason Study Needs to be Portable: Unable to Transport
12/30/23 00:27
Furosemide [Lasix] 60 mg IV NOW STA
12/30/23 00:47
COVID-19 Antigen Urgent
Source: Nasal Swab
Urinalysis Reflex To Culture Urgent
Date Specimen was Collected: 12/30/23
Time Specimen was Collected: 00:43
Urine Microscopic Reflex Cult Urgent
Urine Culture Urgent
[place] Source: U
Specimen Description:
Date Specimen was Collected: 12/30/23
Time Specimen was Collected: 00:43
12/30/23 00:50
Ipratropium/Albuterol Sulfate [Duoneb] 3 ml INH R NOW ONE
12/30/23 00:54
Lactic Acid Q4H
Comment: CANCEL 2nd LACTIC ACID IF 1st LACTIC ACID IS LESS THAN 2
Procalcitonin Urgent
PCT Algorithmm Indication: Respiratory
Blood Culture Q30M
[place] Source: Blood/Venous
Specimen Description:
Blood Culture Q30M
[place] Source: Blood/Venous
Specimen Description:
12/30/23 00:55
Admit/Transfer Patient As Directed
Co-Sign Provider:
Level of Care: Inpatient admission
Assign to:: ICU
Physician / Group: Va Leach
Diagnosis: Hypoxic Respiratory Failure
Reason for Hospitalization: Hypoxic Respiratory Failure
Expected length of stay greater than two midnights?: Yes
ELOS- Estimated Length of Stay in days: 5
I certify the patient meets the requirements for IP care: Yes
12/30/23 00:57
Code Status As Directed
Resuscitation Status: Full Code
12/30/23 01:13
Potassium Chloride [KCl] 40 meq 0.9% Sodium Chloride 250 ml [Nss] 250 ml IV NOW
12/30/23 01:16
Add On- LAB Routine
Tests Added?: free T4
12/30/23 01:27
ABG [Arterial Blood Gas] Urgent
%Oxygen/Room Air: 60
12/30/23 01:41
FentaNYL 1,000 MCG/100 ML [Sublimaze] 1,000 mcg in 100 ml IV PER PROTOCOL
Indication:: Light Sedation
Begin Infusion:: Other
Begin infusion when:: patient requires 3 or more bolus doses in 2 consecutive hours
Goal:: pain score </= 1, CPOT 0-2, RASS 0 to -2
Maximum dose in mcg/hr:: 300
Initial Dose in mcg/hr:: 1
Titration Instructions:: Titrate every 30 minutes if patient exhibits signs of pain or discomfort
Titration Instructions:: (pain score >/= 2, CPOT>/= 3).
Titration Instructions:: Administer bolus dose and increase infusion by 25 mcg/hr.
Taper Instructions:: If pain score at goal for 4 consecutive hours (pain score </= 1, CPOT 0-2)
Taper Instructions:: decrease infusion by 50 mcg/hr every 2 hours.
Taper Instructions:: When dose </= 50 mcg/hr may turn infusion off and consider PRN
Taper Instructions:: intermittent bolus doses only.
Over-sedation Instructions:: If CPOT 0-2 (goal) and RASS -3 to -5 (below goal) decrease sedative by 50%
Over-sedation Instructions:: first. If pain score remains at goal and RASS remains below goal in 1 hour,
Over-sedation Instructions:: decrease opioid infusion by 50%.
Notify provider:: immediately if pt exhibits: chest wall rigidity, hemodynamic instability,
Notify provider:: agitation/pain despite maximum dosing, pain when RASS -3 to -5 (below goal)
Additional Instructions:: When starting infusion, administer bolus dose per PRN order first.
Additional Instructions:: Patient MUST be mechanically ventilated.
Fentanyl Citrate/Pf [Sublimaze] 50 mcg IV [id number] PRN
Fentanyl Citrate/Pf [Sublimaze] 50 mcg IV [id number] PRN
Propofol 1,000,000 Mcg/100 ml [Diprivan] 1,000,000 mcg in 100 ml IV PER PROTOCOL
Indication:: Light Sedation
Begin Infusion:: Now
Goal:: RASS 0 to -2
Maximum dose in mcg/kg/min:: 50
Continue currently infusion dose and titrate:: Yes
Titration Instructions:: Titrate by 5-10 mcg/kg/min every 5 minutes until RASS 0 to -2 achieved.
Taper Instructions:: If RASS is at or below goal for 4 consecutive hours decrease infusion by
Taper Instructions:: 5-10 mcg/kg/min every 2 hours to off.
Over-sedation Instructions:: If CPOT 0-2 (at goal) AND RASS -3 to -5 (below goal) decrease sedative by
Over-sedation Instructions:: 50% first. If pain score remains at goal and RASS remains below goal in
Over-sedation Instructions:: 1 hour, decrease opioid infusion by 50%.
Notify provider:: immediately if patient exhibits signs/symptoms of propofol-related
Notify provider:: infusion syndrome.
Additional Instructions:: Patient MUST be mechanically ventilated and MUST recieve analgesia
12/30/23 01:41
CARDIOLOGY CONSULT Routine
Consulting Provider: Chandan Harding
Was physician already notified: No
Reason for consult: flash pulmonary edema, hypoxic resp failure
Consult Notification Routine
Specialty to Notify: Cardiology
Consult Notification Routine
Specialty to Notify: Artillery Specialist
HF DIETARY CONSULT Routine
HF EDUCATOR CONSULT Routine
Comment:
Artillery Specialist Consult Routine
Consulting Provider: Enrique Najera
Was physician already notified: No
Reason for consult: flash pulmonary edema, hypoxic resp failure, intubated
Activity As Directed
Activity Level: As Tolerated
Bedside Glucose Monitoring As Directed
Frequency: AC&HS
Intake/ Output As Directed
Frequency: Per unit guidelines
Patient Education As Directed
Type: CHF folder
Comment: give on admission. Document in Interdisciplinary Education record
Sleep Apnea Assessment by RN As Directed
Comment:
Physician Instructions:
Vital Signs As Directed
Frequency: Other
Additional Instructions:: Q12 or per unit guidelines if more frequent.
Weight As Directed
Frequency: Daily
Type of Scale: Standing Scale
Comment: Daily morning weight. If unable to stand, use balanced bed scale.
Weight As Directed
Frequency: Once
Type of Scale: Standing Scale
Comment: Upon Admission. If unable to stand, use balanced bed scale.
Weight As Directed
Frequency: Daily
Pulse Ox/cont/shift [RESP] Routine
Quantity: 1
Special Instructions: Daily pulse oximetry at rest. If greater than 92% at rest also obtain pulse oximetry
while ambulating as tolerated.
Pulse Ox/cont/shift [RESP] Urgent
Quantity: 1
Ventilator Initial Settings [RESP] Routine
Tidal Volume: 450
Rate: 14
FIO2: 60
PEEP: 5
DX Deep Vein Thrombosis Video Routine
12/30/23 03:04
Cardiovascular Evaluation IN AM
Lactic Acid Q4H
Comment: CANCEL 2nd LACTIC ACID IF 1st LACTIC ACID IS LESS THAN 2
Magnesium IN AM
MRSA Screen Routine
[place] Source: Nose
Specimen Description:
12/30/23 03:10
Complete Blood Count/No Diff IN AM
Glycohemoglobin (HgbA1c) IN AM
Troponin I Q6H
Comment: at admission & every 6 hours x 2 (3 total), ECG to be done with each level
12/30/23 06:00
Echo 2D MMode Color/Doppler IN AM
Reason for Study: heart failure
Nitroglycerin Ointment [Nitro-Bid] 1 inch TOPICAL Q6
CR Chest Portable - 1 View IN AM
Comment:
Reason For Exam: heart failure
Reason Study Needs to be Portable: Unable to Transport
12/30/23 08:00
Aspirin Low Dose EC [Aspir Low (Enteric Coated)] 81 mg PO DAILY
Atorvastatin [Lipitor] 20 mg PO DAILY
Furosemide [Lasix] 40 mg IV BID AT 0800,1600
Ipratropium/Albuterol Sulfate [Duoneb] 3 ml INH R QID
Metoprolol Xl [Toprol Xl] 50 mg PO DAILY
Pantoprazole [Protonix IV] 40 mg IV DAILY
Sacubitril 24/Valsartan 26 [Entresto 24 mg/26 mg] 1 tab PO BID
Spironolactone [Aldactone] 50 mg PO DAILY
12/30/23 10:00
Troponin I Q6H
Comment: at admission & every 6 hours x 2 (3 total), ECG to be done with each level
12/30/23 18:00
Enoxaparin Sodium [Lovenox] 30 mg SC QPM
12/31/23 06:00
Basic Metabolic Panel IN AM
12/31/23 08:00
Polyethylene Glycol Powder [Miralax] 17 grams TUBE DAILY
01/01/24 06:00
Basic Metabolic Panel IN AM
01/02/24 06:00
Triglycerides Q3D
Comment: every 72 hours while patient is on propofol
01/05/24 06:00
Triglycerides Q3D
Comment: every 72 hours while patient is on propofol
01/08/24 06:00
Triglycerides Q3D
Comment: every 72 hours while patient is on propofol
Abnormal Lab Results
12/29/23 12/30/23 12/30/23
23:29 00:47 00:54
WBC 14.7 H 10^3/uL
(4.8-10.8)
Hgb 11.8 L g/dL
(12.0-16.0)
MCV 80.0 L fL
(81.0-99.0)
MCH 22.7 L pg
(27.0-31.0)
MCHC 28.4 L g/dL
(33.0-37.0)
RDW 20.4 H %
(11.5-14.5)
Plt Count 527 H 10^3/uL
(130-400)
MPV 10.9 H fL
(7.4-10.4)
Abs Immat Gran (auto) 0.1 H 10^3/uL
(0-0.05)
Absolute Neuts (auto) 6.9 H 10^3/uL
(1.4-6.5)
Absolute Lymphs (auto) 5.9 H 10^3/uL
(1.2-3.4)
Absolute Monos (auto) 1.5 H 10^3/uL
(0.1-0.6)
Monocytes % 10.2 H %
(1.7-9.3)
PT 14.9 H Sec
(11.4-14.6)
Carbon Dioxide 19 L mmol/L
(22-30)
Glucose 289 H mg/dl
(70-99)
Lactic Acid 5.1 H* mmol/L
(0.7-2.0)
AST 50 H U/L
(14-36)
Alkaline Phosphatase 142 H U/L
(38-126)
Triglycerides 181 H mg/dl
(10-149)
TSH 9.02 H uIU/ml
(0.47-4.68)
Ur Occult Blood Reflex 2+ A
(Negative)
Leukocyte Esterase Rfl Trace A
(Negative)
Urine RBC 16-20 A /HPF
(0-2)
Urine WBC (Reflex) 16-20 A /HPF
(0-5)
Urine Bacteria (Reflex) Many A
(Negative)
Urine Glucose 1+ A
(Negative)
Urine Albumin (Reflex) 3+ A
(Neg - Trace)
12/29/23 23:29
12/29/23 23:29
Vital Signs
Initial and Last Documented VS:
Initial Vital Signs
Temp Pulse Resp BP
97.8 F 132 34 200/109
12/29/23 23:21 12/29/23 23:21 12/29/23 23:21 12/29/23 23:21
Last Documented Vital Signs
Temp Pulse Resp BP Pulse Ox
99.3 F 90 20 74/57 99
12/30/23 04:00 12/30/23 04:30 12/30/23 04:30 12/30/23 04:30 12/30/23 04:20
<Chandan Figueroa, DO - Last Filed: 12/30/23 01:29>
Orders/Labs/Results
Orders:
Orders
12/29/23 23:22
Electrocardiogram (*1) Stat
Reason for Study: Other
Other Reason for Exam: chest pain
Cardiac Monitoring- Treatment ONCE
EKG- Treatment ONCE
12/29/23 23:23
CR Chest Portable - 1 View Urgent
Comment:
Reason For Exam: dyspnea
Reason Study Needs to be Portable: Patient Unstable
12/29/23 23:29
Complete Blood Count/With Diff Urgent
Comprehensive Metabolic Panel Urgent
Free T4 Urgent
Comment: ADD ON
Magnesium Urgent
NT-proBNP Urgent
PTT Urgent
Prothrombin Time Urgent
TSH Urgent
Triglycerides Urgent
Comment: ADDED
Troponin I Urgent
12/29/23 23:35
Nitroglycerin Ointment [Nitro-Bid] 1 inch TOPICAL NOW STA
12/30/23 00:08
Propofol 1,000,000 Mcg/100 ml [Diprivan] 1,000,000 mcg in 100 ml .ROUTE .STK-MED
12/30/23 00:23
CR Chest Portable - 1 View Urgent
Comment:
Reason For Exam: post intubation
Reason Study Needs to be Portable: Unable to Transport
12/30/23 00:27
Furosemide [Lasix] 60 mg IV NOW STA
12/30/23 00:47
COVID-19 Antigen Urgent
Source: Nasal Swab
Urinalysis Reflex To Culture Urgent
Date Specimen was Collected: 12/30/23
Time Specimen was Collected: 00:43
Urine Microscopic Reflex Cult Urgent
Urine Culture Urgent
[place] Source: U
Specimen Description:
Date Specimen was Collected: 12/30/23
Time Specimen was Collected: 00:43
12/30/23 00:50
Ipratropium/Albuterol Sulfate [Duoneb] 3 ml INH R NOW ONE
12/30/23 00:54
Lactic Acid Q4H
Comment: CANCEL 2nd LACTIC ACID IF 1st LACTIC ACID IS LESS THAN 2
Procalcitonin Urgent
PCT Algorithmm Indication: Respiratory
Blood Culture Q30M
[place] Source: Blood/Venous
Specimen Description:
Blood Culture Q30M
[place] Source: Blood/Venous
Specimen Description:
12/30/23 00:55
Admit/Transfer Patient As Directed
Co-Sign Provider:
Level of Care: Inpatient admission
Assign to:: ICU
Physician / Group: Va Leach
Diagnosis: Hypoxic Respiratory Failure
Reason for Hospitalization: Hypoxic Respiratory Failure
Expected length of stay greater than two midnights?: Yes
ELOS- Estimated Length of Stay in days: 5
I certify the patient meets the requirements for IP care: Yes
12/30/23 00:57
Code Status As Directed
Resuscitation Status: Full Code
12/30/23 01:13
Potassium Chloride [KCl] 40 meq 0.9% Sodium Chloride 250 ml [Nss] 250 ml IV NOW
12/30/23 01:16
Add On- LAB Routine
Tests Added?: free T4
12/30/23 01:27
ABG [Arterial Blood Gas] Urgent
%Oxygen/Room Air: 60
12/30/23 01:41
FentaNYL 1,000 MCG/100 ML [Sublimaze] 1,000 mcg in 100 ml IV PER PROTOCOL
Indication:: Light Sedation
Begin Infusion:: Other
Begin infusion when:: patient requires 3 or more bolus doses in 2 consecutive hours
Goal:: pain score </= 1, CPOT 0-2, RASS 0 to -2
Maximum dose in mcg/hr:: 300
Initial Dose in mcg/hr:: 1
Titration Instructions:: Titrate every 30 minutes if patient exhibits signs of pain or discomfort
Titration Instructions:: (pain score >/= 2, CPOT>/= 3).
Titration Instructions:: Administer bolus dose and increase infusion by 25 mcg/hr.
Taper Instructions:: If pain score at goal for 4 consecutive hours (pain score </= 1, CPOT 0-2)
Taper Instructions:: decrease infusion by 50 mcg/hr every 2 hours.
Taper Instructions:: When dose </= 50 mcg/hr may turn infusion off and consider PRN
Taper Instructions:: intermittent bolus doses only.
Over-sedation Instructions:: If CPOT 0-2 (goal) and RASS -3 to -5 (below goal) decrease sedative by 50%
Over-sedation Instructions:: first. If pain score remains at goal and RASS remains below goal in 1 hour,
Over-sedation Instructions:: decrease opioid infusion by 50%.
Notify provider:: immediately if pt exhibits: chest wall rigidity, hemodynamic instability,
Notify provider:: agitation/pain despite maximum dosing, pain when RASS -3 to -5 (below goal)
Additional Instructions:: When starting infusion, administer bolus dose per PRN order first.
Additional Instructions:: Patient MUST be mechanically ventilated.
Fentanyl Citrate/Pf [Sublimaze] 50 mcg IV [id number] PRN
Fentanyl Citrate/Pf [Sublimaze] 50 mcg IV [id number] PRN
Propofol 1,000,000 Mcg/100 ml [Diprivan] 1,000,000 mcg in 100 ml IV PER PROTOCOL
Indication:: Light Sedation
Begin Infusion:: Now
Goal:: RASS 0 to -2
Maximum dose in mcg/kg/min:: 50
Continue currently infusion dose and titrate:: Yes
Titration Instructions:: Titrate by 5-10 mcg/kg/min every 5 minutes until RASS 0 to -2 achieved.
Taper Instructions:: If RASS is at or below goal for 4 consecutive hours decrease infusion by
Taper Instructions:: 5-10 mcg/kg/min every 2 hours to off.
Over-sedation Instructions:: If CPOT 0-2 (at goal) AND RASS -3 to -5 (below goal) decrease sedative by
Over-sedation Instructions:: 50% first. If pain score remains at goal and RASS remains below goal in
Over-sedation Instructions:: 1 hour, decrease opioid infusion by 50%.
Notify provider:: immediately if patient exhibits signs/symptoms of propofol-related
Notify provider:: infusion syndrome.
Additional Instructions:: Patient MUST be mechanically ventilated and MUST recieve analgesia
12/30/23 01:41
CARDIOLOGY CONSULT Routine
Consulting Provider: Chandan Harding
Was physician already notified: No
Reason for consult: flash pulmonary edema, hypoxic resp failure
Consult Notification Routine
Specialty to Notify: Cardiology
Consult Notification Routine
Specialty to Notify: Artillery Specialist
HF DIETARY CONSULT Routine
HF EDUCATOR CONSULT Routine
Comment:
Artillery Specialist Consult Routine
Consulting Provider: Enrique Najera
Was physician already notified: No
Reason for consult: flash pulmonary edema, hypoxic resp failure, intubated
Activity As Directed
Activity Level: As Tolerated
Bedside Glucose Monitoring As Directed
Frequency: AC&HS
Intake/ Output As Directed
Frequency: Per unit guidelines
Patient Education As Directed
Type: CHF folder
Comment: give on admission. Document in Interdisciplinary Education record
Sleep Apnea Assessment by RN As Directed
Comment:
Physician Instructions:
Vital Signs As Directed
Frequency: Other
Additional Instructions:: Q12 or per unit guidelines if more frequent.
Weight As Directed
Frequency: Daily
Type of Scale: Standing Scale
Comment: Daily morning weight. If unable to stand, use balanced bed scale.
Weight As Directed
Frequency: Once
Type of Scale: Standing Scale
Comment: Upon Admission. If unable to stand, use balanced bed scale.
Weight As Directed
Frequency: Daily
Pulse Ox/cont/shift [RESP] Routine
Quantity: 1
Special Instructions: Daily pulse oximetry at rest. If greater than 92% at rest also obtain pulse oximetry
while ambulating as tolerated.
Pulse Ox/cont/shift [RESP] Urgent
Quantity: 1
Ventilator Initial Settings [RESP] Routine
Tidal Volume: 450
Rate: 14
FIO2: 60
PEEP: 5
DX Deep Vein Thrombosis Video Routine
12/30/23 03:04
Cardiovascular Evaluation IN AM
Lactic Acid Q4H
Comment: CANCEL 2nd LACTIC ACID IF 1st LACTIC ACID IS LESS THAN 2
Magnesium IN AM
MRSA Screen Routine
[place] Source: Nose
Specimen Description:
12/30/23 03:10
Complete Blood Count/No Diff IN AM
Glycohemoglobin (HgbA1c) IN AM
Troponin I Q6H
Comment: at admission & every 6 hours x 2 (3 total), ECG to be done with each level
12/30/23 06:00
Echo 2D MMode Color/Doppler IN AM
Reason for Study: heart failure
Nitroglycerin Ointment [Nitro-Bid] 1 inch TOPICAL Q6
CR Chest Portable - 1 View IN AM
Comment:
Reason For Exam: heart failure
Reason Study Needs to be Portable: Unable to Transport
12/30/23 08:00
Aspirin Low Dose EC [Aspir Low (Enteric Coated)] 81 mg PO DAILY
Atorvastatin [Lipitor] 20 mg PO DAILY
Furosemide [Lasix] 40 mg IV BID AT 0800,1600
Ipratropium/Albuterol Sulfate [Duoneb] 3 ml INH R QID
Metoprolol Xl [Toprol Xl] 50 mg PO DAILY
Pantoprazole [Protonix IV] 40 mg IV DAILY
Sacubitril 24/Valsartan 26 [Entresto 24 mg/26 mg] 1 tab PO BID
Spironolactone [Aldactone] 50 mg PO DAILY
12/30/23 10:00
Troponin I Q6H
Comment: at admission & every 6 hours x 2 (3 total), ECG to be done with each level
12/30/23 18:00
Enoxaparin Sodium [Lovenox] 30 mg SC QPM
12/31/23 06:00
Basic Metabolic Panel IN AM
12/31/23 08:00
Polyethylene Glycol Powder [Miralax] 17 grams TUBE DAILY
01/01/24 06:00
Basic Metabolic Panel IN AM
01/02/24 06:00
Triglycerides Q3D
Comment: every 72 hours while patient is on propofol
01/05/24 06:00
Triglycerides Q3D
Comment: every 72 hours while patient is on propofol
01/08/24 06:00
Triglycerides Q3D
Comment: every 72 hours while patient is on propofol
Abnormal Lab Results
12/29/23 12/30/23 12/30/23
23:29 00:47 00:54
WBC 14.7 H 10^3/uL
(4.8-10.8)
Hgb 11.8 L g/dL
(12.0-16.0)
MCV 80.0 L fL
(81.0-99.0)
MCH 22.7 L pg
(27.0-31.0)
MCHC 28.4 L g/dL
(33.0-37.0)
RDW 20.4 H %
(11.5-14.5)
Plt Count 527 H 10^3/uL
(130-400)
MPV 10.9 H fL
(7.4-10.4)
Abs Immat Gran (auto) 0.1 H 10^3/uL
(0-0.05)
Absolute Neuts (auto) 6.9 H 10^3/uL
(1.4-6.5)
Absolute Lymphs (auto) 5.9 H 10^3/uL
(1.2-3.4)
Absolute Monos (auto) 1.5 H 10^3/uL
(0.1-0.6)
Monocytes % 10.2 H %
(1.7-9.3)
PT 14.9 H Sec
(11.4-14.6)
Carbon Dioxide 19 L mmol/L
(22-30)
Glucose 289 H mg/dl
(70-99)
Lactic Acid 5.1 H* mmol/L
(0.7-2.0)
AST 50 H U/L
(14-36)
Alkaline Phosphatase 142 H U/L
(38-126)
Triglycerides 181 H mg/dl
(10-149)
TSH 9.02 H uIU/ml
(0.47-4.68)
Ur Occult Blood Reflex 2+ A
(Negative)
Leukocyte Esterase Rfl Trace A
(Negative)
Urine RBC 16-20 A /HPF
(0-2)
Urine WBC (Reflex) 16-20 A /HPF
(0-5)
Urine Bacteria (Reflex) Many A
(Negative)
Urine Glucose 1+ A
(Negative)
Urine Albumin (Reflex) 3+ A
(Neg - Trace)
12/29/23 23:29
12/29/23 23:29
Vital Signs
Initial and Last Documented VS:
Initial Vital Signs
Temp Pulse Resp BP
97.8 F 132 34 200/109
12/29/23 23:21 12/29/23 23:21 12/29/23 23:21 12/29/23 23:21
Last Documented Vital Signs
Temp Pulse Resp BP Pulse Ox
99.3 F 90 20 74/57 99
12/30/23 04:00 12/30/23 04:30 12/30/23 04:30 12/30/23 04:30 12/30/23 04:20
Procedures
<Chandan Figueroa DO - Last Filed: 12/30/23 01:29>
Intubations
Procedure completed by: PA student with direct supervision by myself at the bedside for the entiret
Method of Intubation: glidescope
Tube size (cm): 7.0
Placement confirmed by: auscutation and direct visualization
Breath sounds after intubation: equal
Intubation complications: no complications
<LISA Loera - Last Filed: 12/30/23 04:57>
MDM/Problems Addressed
Differential Diagnosis Includes:
Hypertensive emergency, decompensating CHF, flash pulmonary edema
Hypertensive emergency considered due to initial BP 200/109 with pulse rate 132bpm and respiratory rate 34 breaths per min. She is also in respiratory distress using accessory muscles and tripoding. Decompensating CHF considered due to history of EF
of 40-45%. Flash pulmonary edema considered due to respiratory symptoms. Plan to admit for further mangagement.
<LISA Loera - Last Filed: 12/30/23 04:57>
*Critical Care Note
Total Time (30-74mins, 75-104mins- exclusive of procedures): Not Applicable
ED Attending Note
<LISA Loera - Last Filed: 12/30/23 04:57>
-
Portions of this chart may have been created with voice recognition software.� Occasional wrong word or��sound alike� substitutions may have occurred due to the inherent limitations of voice recognition software.
<Chandan Figueroa DO - Last Filed: 12/30/23 01:29>
ED Attending Note
Patient seen and examined by attending physician: Yes
I performed the substantive portion of visit, reviewed & personally made and approve the management plan that is documented in note by myself or ARINA.: Yes
ED Attending Note:
This a pleasant 73-year-old female that presents with acute respiratory distress. states that this evening she began having shortness of breath. Patient denied chest pain or shortness of breath upon arrival she was speaking in one-word
sentences. Patient is not on home oxygen. Patient was seen in conjunction with the PA student. I have reviewed and agree with the history and treatment plan presented. On my independent physical exam, patient is awake, though somnolent, in
severe respiratory distress. Rhonchi throughout the lungs with audible respirations. Speaking in one-word sentences. Heart is tachycardic. Abdomen is soft. General body habitus is cachectic. Skin is pale. Slight diaphoresis. Moves all 4
extremities.
Vital signs are stable. Patient is hypoxic
Nursing note reviewed. I agree with nursing documentation up to this point in time.
Home Meds and allergies reviewed.
NUMBER AND COMPLEXITY OF PROBLEMS ADDRESSED AT THE ENCOUNTER
� Chronic conditions affecting care: Hypertension, hyperlipidemia, coronary artery disease, peptic ulcer disease with partial gastrectomy
� Acute Exacerbation and/or Progression of Chronic Illness: COPD, CHF
� Differential Diagnosis includes: CHF exacerbation, COPD exacerbation
AMOUNT AND/OR COMPLEXITY OF DATA TO BE REVIEWED AND ANALYZED
I performed an independent evaluation of the following and my interpretation is:
EKG: EKG shows sinus rhythm rate of 134 consistent with sinus tachycardia. There is a left bundle branch block present. No evidence of acute ischemia present. When compared with previous EKG dated October 08, 2023, there is
similar morphology noted.
CT:
X-rays: Initial x-ray shows pulmonary vascular congestion.
Ultrasound:
Laboratory Studies: Current hemoglobin is 11.8. Up from 8.5 at last visit
Other:
Review of other/old records: Previous smoker, quit 2 to 3 years ago
Clinical information was obtained by an independent historian: who is present at the bedside
Prescriptions/Medications Considered but not given:
Further testing considered but not performed:
RISK OF COMPLICATIONS AND/OR MORBIDITY OR MORTALITY OF PATIENT MANAGEMENT
Social determinants of health affecting care: Good Social Support
Discussion with other providers: Hospitalist for admission
Escalation of care including admission/observation vs risk of discharge considered: Patient is intubated she will be admitted to the ICU for COPD, CHF exacerbations
CRITICAL CARE NOTE:
Critical care statement: A total of 35 minutes of critical care time was provided for this patient. This time is separate from time utilized to perform the aforementioned documented procedures. Aggregate critical care time includes only time
during which I was engaged in work directly related to the patient's care, as described above, whether at the bedside or elsewhere in the Emergency Department.
Total Time (exclusive of procedures):35
Update:
Discharge Plan
Departure
Patient Disposition: Admit
Date of Disposition: 12/30/23
Time of Disposition: 00:32
Admit to: ICU
Admit to doctor: Hospitalist
Presentation/result/management discussed w/ accepting MD/DO: Hospitalist
Condition: Serious
Discharge Problem:
Systolic CHF, Hypertensive emergency, Acute respiratory failure with hypoxia, Hypoxia, Cachexia, HTN (hypertension), Body mass index (BMI) less than 16.5, Hematuria
Interventions
Interventions:
*General Assessment Last Done: 12/29/23 23:50
*Neglect/Abuse Screening Last Done: 12/29/23 23:50
ED- Fall Risk Assessment Last Done: 12/29/23 23:50
*Nursing Disposition Last Done: 12/30/23 01:45
ED- Cardiac Assessment Last Done: 12/29/23 23:50
ED- Pulmonary Assessment Last Done: 12/29/23 23:50
Discharge Date and Time
Discharge Date/Time: 12/30/23 01:45
--- NOTE | 2023-12-29 23:56 | PHANOTE ---
Med Rec Note:
Pt unable to be interviewed, spouse does not know any of her medications, pt's son not answering phone. Home med list compiled from Dr Cadet, ECW, and PDMP.
[2023-12-30] VITALS (118 sets, daily range): BP systolic 57–184; BP diastolic 37–105; BMI 16.7
[2023-12-30 00:05] LABS: NT-proBNP 7520 pg/ml
--- NOTE | 2023-12-30 00:23 | EDRN ---
0008 20 LAC flushed for patency
0010 Raj Figueroa at PA dylon Martin at head of bed for intubation, respiratory at bedside.
0011 etomidate 8mg administered LAC
0011 vecuronium 5 mg administered LAC
0011 pt. head down, confirm no dentures 97% O2 sat
0012 tube inserted by IGGY Martin tube size 7.0, 21 @ lip
0013 color metric for CO2 end tidal monitor - yellow color
0015 diprivan drip started 0.8 mcg/kg/min, 2.3 ml/hr
0017 suctioned pt., OG tube inserted, low intermittent suction setting
28992 2nd IV access established, 22 R fore arm
0028 Temp sensitive colon inserted 16FR, urine specimen obtained
0032 xray at bedside to confirm tube placement
Vent setting 450/R14, 60%, peep 5
[2023-12-30 00:26] LABS: TSH 9.02 uIU/ml (0.47-4.68)
--- NOTE | 2023-12-30 00:30 | HPS.HSE ---
Addendum entered and electronically signed by Va Leach MD 12/30/23 01:57:
lactate 5.1. patient clearly not dry, no e/o sepsis (procal neg); likely 2/2 increased work of breathing/ poor perfusion in heart failure
continue to trend with diuresis
Original Note:
Family Physician
-
Family Physician: * NONE
Chief Complaint
-
shortness of breath
History of Present Illness
Ms. Nica Lopez is a 73 yo woman with hx former smoker, PUD, subtotal gastrectomy, CAD, heart failure moderately reduced EF presents to the ER with shortness of breath while getting ready for bed.
Patient intubated at time of my exam. History obtained by at bedside. Per she was in her usual state of health today. She was not complaining of chest pain, shortness of breath or swelling. Per her blood pressure tends to
run high. She takes all of her medications. No recent fever or cough.
She is not very ambulatory 2/2 arthritis.
Patient was admitted to the hospital 10/08-10/10/23 for hypokalemia, lasix replaced with spironolactone.
Medical History
Past Medical History
Past Medical History: Reports Other (chronic anemia, PUD, Essential HTN, HLD)
Past Surgical History: Reports Cholecystectomy and Other (stomach resection)
Social History
Tobacco: Former Smoker
Alcohol: None
Drug: None
Personal:
Living: With Family
Employment: Retired
Family History
Family History: Not pertinent
Allergies / Home Medications
Allergies reflects when Allergies were last updated in [facility].
Home Medications with original date entered in [facility]
Allergy/Medication List:
Allergies
Allergy/AdvReac Type Severity Reaction Status Date / Time
No Known Allergies Allergy Verified 10/08/23 12:53
Home Medications
pantoprazole 40 mg tablet,delayed release 40 mg PO DAILY Gastrointestinal Issue 01/23/23
aspirin 81 mg tablet,delayed release 81 mg PO DAILY 10/08/23
atorvastatin 20 mg tablet 20 mg PO DAILY 10/08/23
cholecalciferol (vitamin D3) 25 mcg (1,000 unit) tablet 25 mcg PO DAILY 10/08/23
cyanocobalamin (vitamin B-12) 2,000 mcg tablet 2,000 mcg PO DAILY 10/08/23
ferrous sulfate 142 mg (45 mg iron) tablet,extended release 142 mg PO DAILY 10/08/23
pregabalin 25 mg capsule 50 mg PO BID 10/08/23
sacubitril 24 mg-valsartan 26 mg tablet (Entresto) 1 tab PO BID 10/08/23
metoprolol succinate 50 mg tablet,extended release 24 hr 50 mg PO DAILY #30 tabs 10/10/23
spironolactone 50 mg tablet 50 mg PO DAILY #30 tabs 10/10/23
Review of Systems
-
Unable to obtain full review of systems at this time due to: Patient Intubation
History Source: Patient
Physical Exam
Vital Signs
Vital Signs
Temp Pulse Resp BP Pulse Ox
97.8 F 107 17 154/88 99
12/29/23 23:21 12/30/23 00:15 12/30/23 00:15 12/30/23 00:15 12/30/23 00:15
Physical Exam
General: Intubated and Other (frail appearing)
HEENT: PERRLA
Respiratory: Rales; No Wheezes
Cardiac: S1/S2, Regular Rhythm and Tachycardia
GI: Soft and Non Tender
Musculoskeletal: No Edema
Skin: Warm and Dry; No Rash
Neuro: Sedated
Psych: Calm
Laboratory Results
-
12/29/23 23:29
12/29/23 23:29
Laboratory Results
PT 14.9 Sec (11.4-14.6) H 12/29/23 23:
INR 1.19 12/29/23 23:
APTT 28.2 Sec (23.4-35.0) 12/29/23 23:
Total Bilirubin 0.3 mg/dl (0.2-1.3) 12/29/23 23:29
AST 50 U/L (14-36) H 12/29/23 23:
ALT 22 U/L (0-35) 12/29/23 23:
Alkaline Phosphatase 142 U/L (38-126) H 12/29/23 23:
Troponin I 0.020 ng/ml 12/29/23 23:29
Data Reviewed
-
Diagnostic Radiology: Report Reviewed by me
Lab Data: Labs Reviewed by me
Impression/Plan
-
Ms. Nica Lopez is a 73 yo woman with hx former smoker, PUD, subtotal gastrectomy, CAD, heart failure moderately reduced EF presents to the ER with shortness of breath while getting ready for bed.
Triage VS: T 97.8, P 132, RR 34, BP 200/109
Labs: WBC 14.7, Hg 11.8, PLT 527, Na 138, K+ 3.7, BUN 14, Cr 0.8, Glucose 289, Mag 2.2, T. Bili 0.3, AST 40, ALT 22, Alk Phos 142, Trop 0.020, BNP 7520, TSH 9.02
CXR with pulmonary edema
EKG with LBBB, sinus tachycardia
MAR: nitroglycern, lasix x 1
Hypoxic Respiratory Failure
Acute Pulmonary Edema
Heart Failure moderately reduced EF, acute exacerbation. TTE 01/20 with EF 40-45%
-s/p emergent intubation in the ER
-admit to ICU
-s/p lasix 60mg in ER. continue 40mg IV BID. Patient was on lasix 20mg PO QD prior to admission in October
-trend Troponin
-TTE
-cardiology consult
-Chief Engineer consult
-vent management per thread clipper
-daily weights, strict I/O
-K repletion with lasix with hx severe hypokalemia
Hypertensive emergency
-SBP 200's initially in ER down to 170's
-continue QUALITY ENG regimen: metoprolol, Entresto, Spironolactone
-continue nitropaste
Hyperglycemia
-likely stress response, no hx diabetes
-F/U A1c
-bedside glucose testing, may need ISS if remains elevated
Former smoker
-may have component of COPD, no wheezing on exam
-will order standing duonebs
-Chief Engineer eval
Elevated TSH
-add on free T4
-should be repeated when not in acute illness
CAD
-non-obstructive by cath 2022
-QUALITY ENG asa/statin
PUD s/p Billroth II procedure
-IV Protonix
DVT PPx lovenox subQ
FULL CODE - confirmed with at time of admission
Total Critical Care Time 52 minutes. I was immediately available to the patient and staff. I personally examined, reviewed labs, diagnostic images/reports, interpretations, treatment plans, discussed patient care with other providers and family
or caregivers (if patient is unable to make decisions), entered orders as appropriate and documented the medical record.
[2023-12-30] MEDS: LASIX 60 MG IV (00:35)
[2023-12-30 00:59] LABS: Urine Albumin 3+ (Neg - Trace); Urine Bilirubin Negative (Negative); Urine Character Slightly Cloudy (Clear); Urine Color Yellow; Urine Glucose 1+ (Negative); Urine Ketone Negative (Negative); Urine Leukocyte Trace (Negative); Urine Nitrite Negative (Negative); Urine Occult Blood 2+ (Negative); Urine Urobilinogen Negative (Neg - 1+)
[2023-12-30 01:12] LABS: Urine Squamous Cell 16-20 /LPF (Few)
[2023-12-30 01:13] LABS: COVID-19 Antigen Negative (Negative); Urine Bacteria Many (Negative); Urine Red Blood Cell 16-20 /HPF (0-2); Urine Urothelial Cell 0-2 /LPF (FEW); Urine White Cell 16-20 /HPF (0-5)
[2023-12-30] MEDS: KCL 270 MEQ IV (01:15)
[2023-12-30 01:36] LABS: B.E. -6.8 mmol/L; HCO3 24.9 mmol/L (21-28); PO2 64 mmHg (83-108)
[2023-12-30 01:38] LABS: O2 Therapy 60%; PCO2 86 mmHg (32-35); pH 7.07 (7.35-7.45)
[2023-12-30 01:40] LABS: Lactic Acid 5.1 mmol/L (0.7-2.0)
--- NOTE | 2023-12-30 01:45 | PTCARENOTE ---
Rec'd pt from ER via stretcher on monitor and diprivan gt at 0.8 crystal, on vent accomp by RN BIRTHING & resp therapist; pt awake, following commands, anxious, AMINAH at 2mm, sluggish,diprivan gtt titrated , fent 50mic iv given at 0200 for pain,wrists
restrained for pt safety, CHG bath done on adm, ST w/ BBB, weak distal pulses, no edema, skin cool/dry, #7 oral ett- 21 cm R lip, rec'd pt on ac 14, tv 450, 5 peep, 50%, abg resulted, Arsen Barrera NP aware, ac incr to 20 & fio2 incr to 80 at 0200 by
resp per order, lungs coarse, decr in bases, difficult to obtain a pulse ox, hypo bowel sounds, no bm, abd flat, soft, nontender, no n/v, oral salem to low inter suction draining brown/ waldrop liquid, irrigated w/ 30 tap h20, colon draining yellow
urine
[2023-12-30 01:50] LABS: Procalcitonin 0.17 ng/ml (0.0-0.25)
[2023-12-30] MEDS: SUBLIMAZE 50 MCG IV ×2 (02:05→09:42)
[2023-12-30 02:19] LABS: Free T4 1.15 ng/dl (0.78-2.19)
--- NOTE | 2023-12-30 02:30 | PTCARENOTE ---
Arsen Barrera NP aware of bp, to keep map > 65
[2023-12-30 02:33] LABS: Triglycerides 181 mg/dl (10-149)
[2023-12-30 02:45] LABS: Glucose - Point of Care 179 mg/dl (70-99)
--- NOTE | 2023-12-30 03:00 | PTCARENOTE ---
fio2 decr to 50% by resp therapist
[2023-12-30 03:12] LABS: B.E. -3.5 mmol/L; HCO3 23.5 mmol/L (21-28); O2 Saturation % 99.3 % (94-98); PCO2 50 mmHg (32-35); PO2 221 mmHg (83-108); Potassium 3.3 mMOL/L (3.5-5.1); Sodium 140 mMOL/L (136-145); pH 7.28 (7.35-7.45)
[2023-12-30 03:13] LABS: O2 Therapy 80%
[2023-12-30 03:23] LABS: Mean Corp Hgb Conc. 28.9 g/dL (33.0-37.0); Mean Corpuscular Hgb 22.8 pg (27.0-31.0); Mean Corpuscular Volume 78.7 fL (81.0-99.0); Mean Platelet Volume 9.8 fL (7.4-10.4); Platelet Count 659 10^3/uL (130-400); Red Blood Cell Count 4.83 10^6/uL (4.20-5.40); Red Cell Dist. Width 19.8 % (11.5-14.5)
[2023-12-30] MEDS: ZOFRAN 4 MG IV (03:25)
--- NOTE | 2023-12-30 03:25 | PTCARENOTE ---
while retaping & repos ett to left side pt vomited brown/waldrop liquid, salem placement checked, and good, zofran 4mg iv givenper order
[2023-12-30 03:27] LABS: Lactic Acid 2.9 mmol/L (0.7-2.0)
[2023-12-30 03:58] LABS: ALT (SGPT) 33 U/L (0-35); AST (SGOT) 66 U/L (14-36); Albumin 2.9 g/dl (3.5-5.0); Alkaline Phosphatase 201 U/L (38-126); Blood Urea Nitrogen 18 mg/dl (7-17); Calcium 7.8 mg/dl (8.4-10.2); Carbon Dioxide 22 mmol/L (22-30); Chloride 112 mmol/L (98-107); Direct Bilirubin 0.3 mg/dl (0.0-0.4); Estimated Creatinine Clearance 44 ml/min; Glucose 153 mg/dl (70-99); HDL Cholesterol 44 mg/dl; LDL Cholesterol, Calculated 50 mg/dl; Magnesium 1.6 mg/dl (1.6-2.3); Potassium 3.4 mmol/L (3.5-5.1); Sodium 141 mmol/L (135-145); Total Bilirubin 0.3 mg/dl (0.2-1.3); Total Cholesterol 104 mg/dl (50-199); Total Protein 5.9 g/dl (6.3-8.2); Triglyceride 54 mg/dl (10-149); Very Low Density Lipoprotein 10 mg/dl (0-30); eGFR > 60.00
[2023-12-30 03:58] LABS: Troponin I 0.334 ng/ml
--- NOTE | 2023-12-30 04:00 | PTCARENOTE ---
Addendum entered by Maura Constantino RN 12/30/23 05:21:
levophed gtt started, to keep map > 65- see flow sheet for titrations
Original Note:
sys liseth, Arsen Barrera np aware of trop result & no urine output,, order rec'd for serial trop,ntp dc'd per order
[2023-12-30] MEDS: LEVOPHED 250 IV (04:04)
[2023-12-30 04:48] LABS: Venous Blood Gas B.E. -11.3 mmol/L (-4 to +4); Venous Blood Gas HCO3 15.6 mmol/L (22-27); Venous Blood Gas O2 Sat % 99.9 %; Venous Blood Gas pCO2 38 mmHg (35-48); Venous Blood Gas pH 7.22 (7.32-7.43); Venous Blood Gas pO2 195 mmHg (30-50)
[2023-12-30 04:50] LABS: Venous Blood Gas O2 Therapy 80%
--- NOTE | 2023-12-30 05:00 | PTCARENOTE ---
Addendum entered by Maura Constantino RN 12/30/23 05:29:
Arsen Blackwell NP aware of venous abg
Original Note:
Arsen Blackwell np aware of 5ml urine output past hour, no orders rec'd
--- NOTE | 2023-12-30 05:47 | W.PN.UPDATE ---
Update Note
Progress Note Update
patient spiked temp to 100.5. patient now hypotensive, requiring levophed. blood cultures pending. covid was negative;
-will test influenzae
-procal low but with patient's clinical presentation will start broad spectrum antibiotics for now
-hold further lasix until seen by specialists
-hold all anti-HTN meds
[2023-12-30 05:56] LABS: Glucose - Point of Care 108 mg/dl (70-99)
[2023-12-30] MEDS: OFIRMEV 100 IV ×3 (06:02→18:33)
--- NOTE | 2023-12-30 06:04 | PTCARENOTE ---
ofirmev 1 gm iv given for temp
[2023-12-30] MEDS: MAXIPIME 2000 MG IV ×2 (06:23→18:35)
[2023-12-30] MEDS: STERILE WATER FOR INJECTION 10 ML IV ×2 (06:24→18:35)
[2023-12-30] MEDS: VIBRAMYCIN 260 MG IV ×2 (06:26→20:07)
[2023-12-30 07:05] LABS: Lactic Acid 1.4 mmol/L (0.7-2.0)
[2023-12-30 07:17] LABS: Blood Urea Nitrogen 23 mg/dl (7-17); Calcium 8.2 mg/dl (8.4-10.2); Carbon Dioxide 21 mmol/L (22-30); Chloride 110 mmol/L (98-107); Estimated Creatinine Clearance 35 ml/min; Glucose 91 mg/dl (70-99); Potassium 4.7 mmol/L (3.5-5.1); Sodium 141 mmol/L (135-145); eGFR 59.12
[2023-12-30] MEDS: VANCOCIN 275 MG IV (07:49)
[2023-12-30] MEDS: PROTONIX IV 40 MG IV (07:52)
[2023-12-30] MEDS: ASPIR LOW (ENTERIC COATED) 81 MG PO (07:52)
[2023-12-30] MEDS: LIPITOR 20 MG PO (08:10)
--- NOTE | 2023-12-30 08:32 | CON.CAR ---
Addendum entered and electronically signed by Chandan Harding MD 12/30/23 10:59:
Patient seen and examined in collaboration with TOWBOAT OPERATOR; agree with below.
-69-year-old female with known NICM/chronic HFrEF, hypertension, chronic LBBB admitted with shortness of breath; developed VDRF/sepsis.
-Currently on low-dose pressors; became hypotensive after receiving diuretic, now being held.
-Continue supportive care; on antibiotics.
-Will obtain echocardiogram today.
-Analysis Evaluator to try to wean off vent soon.
Original Note:
Consultation
Consultation Request
Date/Time Consultation Requested: 12/30/23140
Date/Time Consultation Performed: 12/30/23831
Requesting Provider: Dr. Leach
Performing Provider: Gladys TATE for Dr. Harding
Reason for Consultation: hypoxic respiratory failure, suspected pulmonary edema
Medical History
-
Chief Complaint: SOB
History of Present Illness:
73 y/o female with NICM EF 40-45%, non-obstructive CAD (60% LCX cath 2022), hypertension, LBBB, pSVT, hypokalemia, orthostasis, PUD s/p Billroth II procedure, iron deficient anemia who is here for evaluation of sudden onset SOB last night. She was
intubated in the ER for respiratory distress. BP very elevated on arrival (200/109). Originally felt to be volume-overloaded and given lasix, but then developed fever (100.9) and hypotension (as low as 50's systolically) and was placed on Levophed
and antibiotics. On my arrival she is intubated, but awake and in no distress. She is able to follow commands and answer yes/no questions. She denies CP, but confirms that she was feeling okay until last night when she developed SOB, which sounds to
have been sudden onset.
Past Medical History
Past Medical History: Arrhythmias, CAD, CHF, HTN and Other (as above)
Social History
Tobacco: Former Smoker
Personal:
Living: With Family
Family History
Family History: Reviewed & Not Pertinent
Allergies / Home Medications
Allergy/AdvReac Type Severity Reaction Status Date / Time
No Known Allergies Allergy Verified 12/30/23 00:42
�Medication �Instructions �Recorded �Confirmed �Type
pantoprazole 40 mg tablet,delayed 40 mg PO DAILY Gastrointestinal 01/23/23 12/29/23 History
release Issue
aspirin 81 mg tablet,delayed 81 mg PO DAILY 10/08/23 12/29/23 History
release
atorvastatin 20 mg tablet 20 mg PO DAILY 10/08/23 12/29/23 History
cholecalciferol (vitamin D3) 25 25 mcg PO DAILY 10/08/23 12/29/23 History
mcg (1,000 unit) tablet
cyanocobalamin (vitamin B-12) 2,000 mcg PO DAILY 10/08/23 12/29/23 History
2,000 mcg tablet
ferrous sulfate 142 mg (45 mg 142 mg PO DAILY 10/08/23 12/29/23 History
iron) tablet,extended release
pregabalin 25 mg capsule 50 mg PO BID 10/08/23 10/08/23 History
sacubitril 24 mg-valsartan 26 mg 1 tab PO BID 10/08/23 12/29/23 History
tablet (Entresto)
metoprolol succinate 50 mg 50 mg PO DAILY #30 tabs 10/10/23 12/29/23 Rx
tablet,extended release 24 hr
spironolactone 50 mg tablet 50 mg PO DAILY #30 tabs 10/10/23 12/29/23 Rx
Review of Systems
-
History Source: Patient (yes/no questions) and Other (chart)
Respiratory: Trouble Breathing
Physical Exam
Vital Signs
Temp Pulse Resp BP Pulse Ox
100.7 F H 85 20 108/67 95
12/30/23 07:37 12/30/23 06:40 12/30/23 06:40 12/30/23 06:40 12/30/23 06:45
Lab Results
12/30/23 03:10
12/30/23 06:40
Troponin I 0.334 ng/ml H* D 12/30/23 03:10
Ywx-O-Uvokpasrfux Pept 7520 pg/ml 12/29/23 23:29
Physical Exam
General: Well Developed and No Apparent Distress
HEENT: Normocephalic and Anicteric
Respiratory: Other (coarse lung sounds throughout, intubated/ventilated)
Cardiac: Regular Rhythm
Musculoskeletal: No Edema
Skin: Warm and Dry
Neuro: Awake and Alert
Psych: Calm
Impression / Plan
-
Acute hypoxic respiratory failure:
-intubated/ventilated, coarse lung sounds to assessment
-s/p Lasix due to concern for pulmonary edema, but now with hypotension and on pressors
-getting abx
-obtain echo
-of note, former smoker as well- received breathing tx
Shock, likely septic:
-WBC elevated, low grade fever noted s/p IV Tylenol
-on ABX, cx pending
-remains on Levophed- wean as tolerated- this medicine requires intensive monitoring
-checking echo as above
HTN:
-severe on arrival in setting of respiratory distress, but now with hypotension requiring pressor support
HFmEF: chronic
-most recent EF 40-45%
-update echo
-need to hold off on lasix and GDMT in setting of shock
-monitor volume
CAD:
-shakes head 'no' to CP
-on ASA, statin, BB as OP
Abnormal troponin:
-non-ischemic myocardial injury in setting of respiratory failure, sepsis, hypo/hypertension - seems chronic when compared to previous troponin levels
-trend to peak
-check echo
-as above, denies CP
LBBB: chronic, stable
Data Reviewed
-
EKG: Tracing Personally Visualized and interpreted (ST 117 BPM, LBBB)
Radiology: Report Reviewed by me (Findings suggesting mild CHF. New)
Medical Tests (Nuc Med, Echo etc): Report Reviewed by me (echo 01/23/23: Mild reduced LVF Estimated EF 40-45% Mitral annular calcification. Mild mitral regurgitation. Aortic sclerosis without stenosis.) and Other (cath 01/17/23: Mild anteroapical
hypokinesis with EF 46% 2: Single-vessel CAD circ 60% ostial stenosis)
Labs: Labs Reviewed by me
[2023-12-30] MEDS: DUONEB 3 ML INH ×4 (08:38→20:49)
--- NOTE | 2023-12-30 08:46 | PHA.VAN.IN ---
Assessment
- Assessment
Renal Function: Appears elevated from baseline (SCR 1 vs ~0.5 in Oct 2203)
Concomitant Antimicrobials: cefepime, doxycycline
Plan
- Plan
Initial / Loading Dose: 1250mg - 12/29 07:49
Maintenance Regimen: dosing by level - hold off on further dosing today
Monitoring: random 12/30 06
Pharmacokinetics Vancomycin I
- -
Patient Age: 73
Patient Sex: Female
Vancomycin Day #: 1
Indication: Pulmonary/Respiratory
Requesting Provider: Dr. Leach
Pertinent Antimicrobial Allergies:
NKDA
Height / Weight:
Height 5 ft 5 in
Actual Weight 45.4 kg
IBW in k
Pertinent Past Medical History: BMI ~16.7
- Vital Signs / Lab Results
Temp Pulse Resp BP Pulse Ox
100.7 F H 85 20 108/67 95
12/30/23 07:37 12/30/23 06:40 12/30/23 06:40 12/30/23 06:40 12/30/23 06:45
Lab Results - Hematology
12/29/23 12/30/23
23:29 03:10
WBC 14.7 H 17.0 H
Lab Results - Chemistry
12/29/23 12/30/23 12/30/23
23:29 03:04 06:40
BUN 14 18 H 23 H
Creatinine 0.8 0.8 1.0
Estimated Creat Clear 47 44 35
Albumin 3.9 2.9 L
12/30/23 12/30/23 12/30/23
00:54 03:04 03:14
Lactic Acid 5.1 H* 2.9 H Cancelled
12/30/23
06:40
Lactic Acid 1.4
Lab Results - Urine
12/30/23
00:47
Urine Nitrite (Reflex) Negative
Leukocyte Esterase Rfl Trace A
Urine WBC (Reflex) 16-20 A
Ur Squamous Epith Cells 16-20
Urine Bacteria (Reflex) Many A
Microbiology Results
12/30/23 06:20 Influenza Types A & B ([facility]) - Final
Nasal Swab Negative for Influenza A & B, NAAT
Negative results must be combined with clinical observations
and patient history.
Nucleic Acid Amplification test (NAAT)performed on the
[employer] platform.
--- NOTE | 2023-12-30 10:12 | W.PN.UPDATE ---
Update Note
Progress Note Update
Seen and examined independent of overnight physician. Patient currently intubated and sedated
Remains on Levophed
Spiking fever
Bump in WBC noted
General: Intubated and Other (frail appearing)
HEENT: ETT tube noted
Respiratory: Rales; No Wheezes
Cardiac: S1/S2, Regular Rhythm and Tachycardia
GI: Soft and Non Tender
Musculoskeletal: No Edema
Skin: Warm and Dry; No Rash
Neuro: Sedated
Psych: Calm
Acute hypoxic Respiratory Failure
Acute Pulmonary Edema
Heart Failure moderately reduced EF, acute exacerbation. TTE 01/20 with EF 40-45%
-s/p emergent intubation in the ER
-Diuretics on hold in the setting of shock
-trend Troponin
-TTE
-cardiology consult
-Crane Crew Supervisor consult
-vent management per bilingual branch manager
-daily weights, strict I/O
-K repletion with lasix with hx severe hypokalemia
Abnormal troponin likely nonischemic myocardial injury multifactorial in the setting of respiratory failure, sepsis, shock, urgency on admission
Hypertensive emergency
-SBP 200's initially in ER
-Hold metoprolol, Entresto, Spironolactone
-Hold nitropaste
Shock likely septic versus low possibility of cardiogenic
Remains on Levophed
Echocardiogram pending
Wean pressors as tolerated
Continues to spike fever.
Influenza negative. COVID-negative
Follow-up on the blood cultures
procal low but with patient's clinical presentation will start broad spectrum antibiotics for now
Hyperglycemia
-likely stress response, no hx diabetes
-F/U A1c
-bedside glucose testing, may need ISS if remains elevated
Former smoker
-may have component of COPD, no wheezing on exam
-will order standing duonebs
-Crane Crew Supervisor eval
Subclinical hypothyroidism likely in the setting of acute illness
-should be repeated when not in acute illness
CAD
-non-obstructive by cath 2022
-INDIVIDUAL PENSION CONSULTANT asa/statin
Thrombocytosis likely secondary to sepsis
Continue to trend
PUD s/p Billroth II procedure
-IV Protonix
DVT PPx lovenox subQ
FULL CODE
Critically ill.
--- NOTE | 2023-12-30 10:27 | CON.INTV ---
Consultation
Consultation Request
Date/Time Consultation Requested: 12/30/2023
Date/Time Consultation Performed: 12/30/2023
Requesting Provider: Dr. Leach
Performing Provider: Dr. Enrique Bender
Reason for Consultation: Acute hypoxemic respiratory failure requiring intubation-pulmonary edema
Medical History
-
History of Present Illness:
73-year-old woman with history of peptic ulcer disease, subtotal gastrectomy, former smoker, coronary artery disease, heart failure with moderately reduced ejection fraction around 45% last year, came to the emergency room after developing acute
onset shortness of breath while getting ready to go to bed.
Patient was intubated in the emergency room.
Per patient was on her usual state of health till the night of admission.
There is no history of fever, chills, phlegm production or coughing.
She has been compliant with medication.
Patient is mostly sedentary due to arthritis.
Recently admitted to the hospital in October/2023 for hypokalemia.
Currently intubated on mechanical ventilation. Alert with sedation breaks. Following commands.
Unable to provide history. Records reviewed.
Past Medical History
Past Medical History: Other (See assessment and plan section)
Social History
Tobacco: Former Smoker
Alcohol: None
Drug: None
Living: With Family
Employment: Retired
Family History
Family History: Reviewed & Not Pertinent
Allergies / Home Medications
Allergies
Allergy/AdvReac Type Severity Reaction Status Date / Time
No Known Allergies Allergy Verified 12/30/23 00:42
Home Medications
�Medication �Instructions �Recorded �Confirmed �Last Taken �Type
pantoprazole 40 mg tablet,delayed 40 mg PO DAILY Gastrointestinal 01/23/23 12/29/23 10/08/23 History
release Issue
aspirin 81 mg tablet,delayed 81 mg PO DAILY 10/08/23 12/29/23 10/08/23 History
release
atorvastatin 20 mg tablet 20 mg PO DAILY 0212/29/23 10/08/23 History
cholecalciferol (vitamin D3) 25 25 mcg PO DAILY 10/08/23 12/29/23 10/08/23 History
mcg (1,000 unit) tablet
cyanocobalamin (vitamin B-12) 2,000 mcg PO DAILY 10/08/23 12/29/23 10/08/23 History
2,000 mcg tablet
ferrous sulfate 142 mg (45 mg 142 mg PO DAILY 10/08/23 12/29/23 10/08/23 History
iron) tablet,extended release
pregabalin 25 mg capsule 50 mg PO BID 10/08/23 10/08/23 10/08/23 History
sacubitril 24 mg-valsartan 26 mg 1 tab PO BID 10/08/23 12/29/23 10/08/23 History
tablet (Entresto)
metoprolol succinate 50 mg 50 mg PO DAILY #30 tabs 10/10/23 12/29/23 Unknown Rx
tablet,extended release 24 hr
spironolactone 50 mg tablet 50 mg PO DAILY #30 tabs 10/10/23 12/29/23 Unknown Rx
Review of Systems
-
History Source: Patient
All other systems: Negative unless noted
Vitals / Labs / Diagnostic Testing
Vital Signs
Temp Pulse Resp BP Pulse Ox
100.7 F H 100 20 165/83 92
12/30/23 07:37 12/30/23 09:00 12/30/23 09:00 12/30/23 09:00 12/30/23 09:00
Lab Data
12/30/23 03:10
12/30/23 06:40
Laboratory Results
12/29/23 12/30/23 12/30/23
23:29 01:27 03:06
PT 14.9 H
INR 1.19
APTT 28.2
pH 7.07 L* 7.28 L
pCO2 86 H* 50 H
pO2 64 L 221 H
HCO3 24.9 23.5
O2 Delivery Level 60% 80%
Microbiology
12/30/23 06:20 Nasal Swab Influenza Types A & B ([facility]) - Final
Negative for Influenza A & B, NAAT
Negative results must be combined with clinical observations
and patient history.
Nucleic Acid Amplification test (NAAT)performed on the
[employer] platform.
Diagnostic Testing:
Physical Exam
-
HEENT: Normocephalic and Other (ET tube in place without significant secretion or hemoptysis.)
Cardiovascular: S1/S2
Respiratory: Rales and Non-Labored Respirations
GI: Soft and Non Distended
Neurology: Alert and Other (Able to move 4 extremities. On sedation.)
General: Comfortable (Mechanical ventilation, sedated)
Assessment
-
73-year-old woman who came to the hospital complaining of acute onset shortness of breath. Found to be hypertensive in the emergency room. Hypoxemic. Required emergent intubation. Chest x-ray with possible bilateral pulmonary edema. After
intubation developed hypotension and fever. Admitted to the critical care unit for further care.
Acute hypoxemic/hypercapnic respiratory failure requiring intubation 12/29/2023
AB.07/[id number]/64
Hypertensive emergency on admission systolic blood pressure greater than 200
Chest x-ray: Increased bilateral bronchovascular markings-suspect pulmonary edema.
proBNP 7520
Acute on chronic heart failure with reduced ejection fraction
Echocardiogram 01/23/2023: Ejection fraction 40-45%. Mild MR.
Fever/leukocytosis: Cannot rule out pneumonia-aspiration pneumonitis also a possibility
Negative procalcitonin
Pneumonia a possibility
Abnormal UA: UTI also possible. Many bacteria/16-20 WBCs/trace leukocyte esterase.
Hyperglycemia: Possibly stress related-not a diabetic
Conditions present prior admission:
Heart failure with reduced ejection fraction: Echocardiogram 2022 with ejection fraction 40 to 45%
Former smoker
Coronary Tory disease-nonobstructive on cardiac catheterization 2022
History of peptic ulcer disease status post partial gastrectomy
Assessment and plan:
Patient is critically ill, intubated on mechanical ventilation.
Requiring vasopressors.
-
Clinical picture most suggestive of acute on chronic systolic heart failure.
Received diuretics.
Currently diuretics on hold due to hypotension after intubation and sedation.
Echocardiogram to be repeated
Cardiology evaluated the patient
Trend troponins
May need further diuresis later today.
-
Mechanical ventilation settings reviewed.
Continue without change
FiO2 down to 40%
Pulmonary mechanics acceptable
No significant secretions through ET tube.
-
Developed fever/hypotension after intubation: Aspiration pneumonitis/pneumonia a possibility
Urinalysis also abnormal
Will obtain urine culture
Blood cultures were sent already
Influenza negative
COVID-negative
MRSA screen pending
Agree withVancomycin/cefepime and doxycycline.
Patient had recent admission to the hospital.
If all cultures negative suggest short course of 5 days of antibiotics.
-
Initially hypertensive on admission: Now hypotensive post intubation and sedation.
Hold antihypertensive therapy
Hold further diuresis for now
-
Shock: Possible multiple mechanisms sepsis/cardiogenic.
Continue Levophed, wean down as able.
Hopefully hemodynamics to improve after weaning down sedation.
-
Continue sedation with fentanyl and propofol
Target RASS score 0/-1
Currently following commands
Coughing on demand
-
No documentation of COPD: Okay to continue DuoNebs 4 times a day for now.
No significant secretions
Not significantly bronchospastic on exam.
-
N.p.o. for now
Head of the bed elevation
Hold off on tube feedings for today
-
DVT prophylaxis with Lovenox
Continue IV PPI-past medical history of peptic ulcer disease and gastrectomy.
-
Stress-induced hyperglycemia
Dias Accu-Cheks
Target blood sugars 140-180
Insulin as needed
-
Critical care statement: A total of 40 minutes of critical care time was provided for this patient today. This includes management of unstable vital signs, evaluation of the patient at bedside, reviewing the patient's pertinent medical records
including ventilator settings, arterial blood gases, radiographs, microbiology, laboratory evaluations and discussion with primary team, critical care nursing, and respiratory therapy.
--- NOTE | 2023-12-30 10:55 | CM ---
CM following re: discharge planning.
Discussed in Rounds, reviewed pt's chart, met with pt.
Pt is a 73 year old female, admitted with primary dx of Acute hypoxemic/hypercapnic respiratory failure requiring intubation 12/29/2023. per rounds meeting pt remains intubated, continue supportive care, short weaning trial today with possible
extubation this afternoon.
Pt lives with in 1SH, 1 step to enter. 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 No DME, VN or SNF
PCP: Anitra Aguilera
Pharmacy: [facility]
D/C plan: likely home with anticipated no needs. to transport at discharge.
CM will follow with discharge plan updates as hospitalization progresses.
[2023-12-30 11:05] LABS: Glycohemoglobin (HgbA1c) 5.8 % (4.0-5.6)
--- NOTE | 2023-12-30 11:35 | PTCARENOTE ---
Pt received in bed @ 0700; intubated and sedated. Propofol gtt infusing @ 10 mcg/kg/min. B/L soft limb restraints in place and 4 side rails up. RASS 0 to -1. Pt denying pain. Sinus rhythm/Sinus tach with BBBC on cardiac monitor. Weak pedal pulse.
No edema. Levophed gtt infusing @ 6mcg/min with goal of MAP > 65. #7ETT @ 21cm to left lip. AC (20/450/50%/5+); SaO2 99%. Suctioned for thin white. OGT in place draining small waldrop brown. Bowel sounds (+). Thermistor colon small amounts of clear
yellow. Skin intact. Protective foam in place on sacrum.
[2023-12-30 11:43] LABS: Glucose - Point of Care 101 mg/dl (70-99)
--- NOTE | 2023-12-30 11:56 | PTCARENOTE ---
Pt reassessed. Propofol gtt weaned off. RASS 0. PRN Fentanyl bolus administered for CPOT of 3. B/L soft limb restraints in place. Levophed gtt weaned to 2 mcg/min; MAP remains > 65. Continues to tolerate AC ventilation. FiO2 weaned to 40%. Copious
oral secretions, frequent oral suction provided. Small thin white sputum sample sent to lab for culture.
[2023-12-30 12:13] LABS: Troponin I 0.983 ng/ml
[2023-12-30 16:35] LABS: Troponin I 0.887 ng/ml
--- NOTE | 2023-12-30 16:54 | W.PN.UPDATE ---
Update Note
Progress Note Update
Clinically improving.
Alert. Cooperative.
Sedation is being weaned off.
Spontaneous breathing trial performed. Tolerating well.
Will obtain ABG now.
If adequate then will extubate.
Further diuresis depending on hemodynamics.
[2023-12-30 17:05] LABS: B.E. -2.3 mmol/L; HCO3 22.4 mmol/L (21-28); O2 Saturation % 99.8 % (94-98); PCO2 37 mmHg (32-35); PO2 164 mmHg (83-108); pH 7.39 (7.35-7.45)
--- NOTE | 2023-12-30 17:30 | PTCARENOTE ---
Pt ventilation transitioned to CPAP. Pressure Support 5 and PEEP 5. 40% FiO2. Tolerating without difficulty.
--- NOTE | 2023-12-30 17:49 | PTCARENOTE ---
Pt reassessed. Extubated @ 17:40. Transitioned to 6L NC. SaO2 97%. Pt reports no difficulty breathing. Levophed gtt infusing @ 1mcg/min to maintain MAP > 65.
[2023-12-30 17:54] LABS: Glucose - Point of Care 123 mg/dl (70-99)
[2023-12-30] MEDS: LOVENOX 30 MG SC (18:35)
--- NOTE | 2023-12-30 20:00 | PTCARENOTE ---
Received patient AAOx3, following commands, denying pain, at bedside. Pulled up and repositioned. On 1 mcg of norepinephrine to meet MAP >65. Normal sinus, 80s. No edema, palpable radial and pedal pulses bilaterally. On 6 liters nasal
cannula, saturating 98%, decreased to 5 liters. Lung sounds diminished throughout. Abdomen soft, nontender, hypoactive bowel sounds. No BM yet this admission, NPO. Mouth care done. Thermoster colon in place draining yellow urine. Foam on sacrum for
protection. PIVs WNL, patent. Patient able to make needs known, call fajardo within reach.
[2023-12-30 23:28] LABS: Glucose - Point of Care 118 mg/dl (70-99)
[2023-12-31] VITALS (26 sets, daily range): BP systolic 94–132; BP diastolic 45–95; PULSE 85; O2SAT 93–94; BMI 16.6
--- NOTE | 2023-12-31 | PTCARENOTE ---
Patient assessment unchanged from previous, sleeping comfortably, call fajardo within reach.
--- NOTE | 2023-12-31 04:00 | PTCARENOTE ---
Patient assessment unchanged from previous, labs sent, colon care done.
[2023-12-31 04:29] LABS: Vancomycin Random 13.1 ug/ml
[2023-12-31 05:20] LABS: Hematocrit 30.5 % (37.0-47.0); Hemoglobin 9.1 g/dL (12.0-16.0); Mean Corp Hgb Conc. 29.8 g/dL (33.0-37.0); Mean Corpuscular Hgb 22.8 pg (27.0-31.0); Mean Corpuscular Volume 76.3 fL (81.0-99.0); Mean Platelet Volume 10.6 fL (7.4-10.4); Platelet Count 393 10^3/uL (130-400); Red Cell Dist. Width 19.5 % (11.5-14.5); White Blood Cell Count 14.4 10^3/uL (4.8-10.8)
[2023-12-31 05:28] LABS: Glucose - Point of Care 146 mg/dl (70-99)
[2023-12-31 05:34] LABS: Blood Urea Nitrogen 34 mg/dl (7-17); Calcium 7.8 mg/dl (8.4-10.2); Carbon Dioxide 23 mmol/L (22-30); Chloride 112 mmol/L (98-107); Estimated Creatinine Clearance 29 ml/min; Glucose 87 mg/dl (70-99); Magnesium 1.6 mg/dl (1.6-2.3); Potassium 4.1 mmol/L (3.5-5.1); Sodium 141 mmol/L (135-145)
[2023-12-31] MEDS: MAXIPIME 2000 MG IV ×2 (05:35→17:05)
[2023-12-31] MEDS: STERILE WATER FOR INJECTION 10 ML IV ×2 (05:35→17:04)
[2023-12-31] MEDS: VIBRAMYCIN 260 MG IV (05:36)
[2023-12-31 05:38] LABS: Vancomycin Random 12.9 ug/ml
[2023-12-31] MEDS: DUONEB 3 ML INH (07:11)
[2023-12-31] MEDS: LIPITOR 20 MG PO (07:40)
[2023-12-31] MEDS: ASPIR LOW (ENTERIC COATED) 81 MG PO (07:41)
[2023-12-31] MEDS: MIRALAX 17 GRAMS TUBE (07:41)
--- NOTE | 2023-12-31 07:42 | VATNOTE ---
Called by PCN to assess levophed infiltrate occurring overnight. 9 cm x 7 cm area of pain, discoloration, and edema noted to former IV site. PCN to obtain phentolamine order from . Heat applied to site immediately.
[2023-12-31] MEDS: REGITINE 10 ML SC (08:34)
[2023-12-31] MEDS: REGITINE 10 MG SC (08:34)
--- NOTE | 2023-12-31 08:35 | W.PN.CD ---
Today's Communication / Plan
-
Diuresis today - Lasix 40mg IV monitor response
K>4 Mag > 2
GDMT likely restart tomorrow or couple days
Impression / Plan
-
A:73 y/o female with NICM EF 40-45%, non-obstructive CAD (60% LCX cath 2022), hypertension, LBBB, pSVT, hypokalemia, orthostasis, PUD s/p Billroth II procedure, iron deficient anemia who is here for evaluation of sudden onset SOB last night. She was
intubated in the ER for respiratory distress. BP very elevated on arrival (200/109), however became hypotensive and unablet o tolerate lasix. She is now extubated.
Acute hypoxic respiratory failure: likely PNA/COPD
-successfully extubated,
-getting abx
Shock, likely septic: resolving
-WBC elevated, low grade fever noted s/p IV Tylenol
-on ABX, cx pending
- off pressor support
KODAK: Cr today 1.2 however, before was 0.8
- monitor with diuresis
HTN:
-severe on arrival in setting of respiratory distress, but now with hypotension requiring pressor support
HFmEF: acute on chronic
-most recent EF 40-45%
-update echo
-Lasix IV 40 mg once
-monitor volume
- GDMT once BP stable and stable Cr
CAD:
-on ASA, statin, BB as OP
Abnormal troponin:
-non-ischemic myocardial injury in setting of respiratory failure, sepsis, hypo/hypertension - seems chronic when compared to previous troponin levels
-trend to peak
-echo is stable
-as above, denies CP
LBBB: chronic, stable
Physical Exam
Vital Signs/Labs
Vital Signs
Temp Pulse Resp BP Pulse Ox
98.4 F 85 14 132/70 97
12/31/23 07:42 12/31/23 07:14 12/31/23 07:14 12/31/23 06:00 12/31/23 07:14
12/30/23 12/31/23 01/01/24
06:59 06:59 06:59
Actual Weight 100 lb 1.438 oz 99 lb 13.91 oz
12/31/23 05:09
12/31/23 05:09
PT 14.9 Sec (11.4-14.6) H 12/29/23 23:29
INR 1.19 12/29/23 23:29
APTT 28.2 Sec (23.4-35.0) 12/29/23 23:29
Magnesium 1.6 mg/dl (1.6-2.3) 12/31/23 05:09
Triglycerides 54 mg/dl (10-149) 12/30/23 03:04
LDL Cholesterol, Calc 50 mg/dl 12/30/23 03:04
VLDL Cholesterol, Calc 10 mg/dl (0-30) 12/30/23 03:04
HDL Cholesterol 44 mg/dl 12/30/23 03:04
TSH 9.02 uIU/ml (0.47-4.68) H 12/29/23 23:29
Free T4 1.15 ng/dl (0.78-2.19) 12/29/23 23:29
12/29/23
23:29
Ttd-J-Gcdfgdpqbub Pept 7520
LAB Results
12/29/23 12/30/23 12/30/23
23:29 03:10 09:33
Troponin I 0.020 0.334 H* D 0.983 H* D
12/30/23 12/30/23
15:48 21:00
Troponin I 0.887 H* Cancelled
Physical Exam
Constitutional: No acute distress
EENT: Anicteric
Cardiovascular: Rhythm & rate is regular and Pedal edema is absent
GI: Soft
Neuro/Psych: AO x 3
Data Reviewed
-
Date of Service: December 31, 2023
EKG: Tracing Personally Visualized and interpreted (sinus rhythm )
Echo: Report Reviewed by me
Labs: Labs Reviewed by me
--- NOTE | 2023-12-31 08:39 | PTCARENOTE ---
Addendum entered by Sonya Trejo RN 12/31/23 09:02:
post midline insertion, patient c/o numbness fingers left hand except little finger. VAT RN and sales team member notified. fingers with capillary refill and palpable pulses
Original Note:
report received, assessments per work list. right arm with red/purple swollen area from possible levophed infiltration(per report). VAT team notified. patient c/o pain in that area. other IV sites painful and infiltrated. VAT team at bedside to
assess. midline placed. monitor nsr, lungs diminished. crackles left base. moist non productive cough. pulse oximeter 93-96 on 1 liter. colon draining yellow urine.abdomen soft, active bowel sounds. foam in place sacrum. call fajardo in reach.
switchboard clerk, sales team member at bedside.
[2023-12-31] MEDS: NSS (PRESERVATIVE FREE) 10 ML IV (08:46)
[2023-12-31] MEDS: PROTONIX IV 40 MG IV (08:46)
[2023-12-31] MEDS: LASIX 40 MG IV (08:55)
[2023-12-31] MEDS: VIBRAMYCIN 100 MG PO (08:55)
--- NOTE | 2023-12-31 09:51 | W.PN.INTV ---
Today's Communication / Plan
Recommendations
Diuretics as able
Discontinue doxycycline and vancomycin
Continue cefepime for now
Wean down oxygen
Increase activity as able
Advance diet
Possible transfer to telemetry later.
Assessment
-
73-year-old woman who came to the hospital complaining of acute onset shortness of breath. Found to be hypertensive in the emergency room. Hypoxemic. Required emergent intubation. Chest x-ray with possible bilateral pulmonary edema. After
intubation developed hypotension and fever. Admitted to the critical care unit for further care.
Acute hypoxemic/hypercapnic respiratory failure requiring intubation 12/29/2023
AB.
Hypertensive emergency on admission systolic blood pressure greater than 200
Chest x-ray: Increased bilateral bronchovascular markings-suspect pulmonary edema.
proBNP 7520
Acute on chronic heart failure with reduced ejection fraction
Echocardiogram 01/23/2023: Ejection fraction 40-45%. Mild MR.
Fever/leukocytosis: Cannot rule out pneumonia-aspiration pneumonitis also a possibility
Negative procalcitonin
Pneumonia a possibility
Abnormal UA: UTI also possible. Many bacteria/16-20 WBCs/trace leukocyte esterase.
Hyperglycemia: Possibly stress related-not a diabetic
Conditions present prior admission:
Heart failure with reduced ejection fraction: Echocardiogram 2022 with ejection fraction 40 to 45%
Former smoker
Coronary Tory disease-nonobstructive on cardiac catheterization 2022
History of peptic ulcer disease status post partial gastrectomy
Assessment and plan:
Clinically improved
Extubated 12/30/2023
On low rate supplemental oxygen
Not bronchospastic on exam.
-
Clinical picture most suggestive of acute on chronic systolic heart failure.
Diurese as able.
Blood pressure has improved.
Echocardiogram: Noted with ejection fraction 40%. Similar to prior, mild LVH. No significant valvular abnormalities.
Case discussed with cardiology.
Troponin is trending lower
-
Developed fever/hypotension after intubation: Aspiration pneumonitis/pneumonia a possibility
Urinalysis also abnormal -Urine culture pending
Sputum chronic gram-negative bacilli.
Blood cultures so far negative
Influenza negative
COVID-negative
MRSA negative
Discontinue vancomycin and doxycycline
Continue cefepime. Will consider transition to Augmentin if able to tolerate diet per
Patient had recent admission to the hospital.
-
Initially hypertensive on admission: Blood pressure has improved.
Restart outpatient medication when able.
Diuresis when able.
-
Shock: Possible multiple mechanisms sepsis/cardiogenic. Resolved.
-
No documentation of COPD: Not bronchospastic on exam.
Change DuoNebs to as needed
-
Diet to be advanced. Evaluated by speech therapy.
-
Physical therapy/Occupational Therapy.
-
DVT prophylaxis with Lovenox
Continue IV PPI-past medical history of peptic ulcer disease and gastrectomy.
-
Stress-induced hyperglycemia, resolved
-
Right forearm peripheral line infiltration. Status post phentolamine.
Norepinephrine has been discontinued
No evidence for skin necrosis on exam.
Continue to monitor.
-
If patient continues to improve. Will transfer to telemetry later today.
If transferred to telemetry pulmonary will continue to follow briefly for hypoxemia.
Subjective Dataa
Subjective Data
Date of Service:
Date of Service: December 31, 2023
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
Subjective:
Feels better.
Denies phlegm production or hemoptysis.
Shortness of breath has improved.
Review of Systems
General: Fever (n)
Cardiopulmonary: Dyspnea (improved), Cough (n) and Sputum Production (n)
GI: Abdominal Pain (n)
Neuro: Headache (n)
Objective Data
Data Reviewed
Vital Signs / I&O / Oxygen:
Vital Signs
Temp Pulse Resp BP Pulse Ox
98.4 F 86 14 121/55 95
12/31/23 07:42 12/31/23 08:55 12/31/23 07:14 12/31/23 08:55 12/31/23 07:30
Intake and Output
12/30/23 12/31/23 01/01/24
06:59 06:59 06:59
Intake Total 581.4 / 584.1 1005.9 / 1005.9 240 / 240
Output Total 580 / 610 625.0 / 625.0 325 / 325
Balance 1.4 / -25.9 380.9 / 380.9 -85 / -85
SaO2 [CPAP/PSV] 99
SaO2 [A/C] 99
SaO2 95
Nasal Cannula flow liters per 1
minute
Physical Exam
General: Respiratory Distress (n) and Comfortable
HEENT: Normocephalic
Cardiovascular: S1-S2
Respiratory: Wheeze (n), Crackles and Non-Labored Respirations
GI: Soft and Non Distended
Neurology: Awake and Alert
Skin: Warm, Other (Bilateral distal peripheral pulses present) and Other (Right forearm slightly swollen. Not significantly tender. No evidence for skin necrosis)
Labs/Micro/Reports
Lab Data
12/31/23 05:09
12/31/23 05:09
Laboratory Results
12/30/23
16:52
pH 7.39
pCO2 37 H
pO2 164 H
HCO3 22.4
O2 Delivery Level
Microbiology
12/30/23 11:14 Tracheal Aspirate Respiratory Culture - Preliminary
Gram negative bacilli
12/30/23 11:14 Tracheal Aspirate Gram Stain - Preliminary
12/30/23 03:04 Nose MRSA Screen - Final
No Methicillin Resistant Staphylococcus aureus isolated.
12/30/23 00:54 Blood/Venous Blood Culture - Preliminary
No Growth in 24 hours- Final report to follow
12/30/23 00:54 Blood/Venous Blood Culture - Preliminary
No Growth in 24 hours- Final report to follow
12/30/23 06:20 Nasal Swab Influenza Types A & B ([facility]) - Final
Negative for Influenza A & B, NAAT
Negative results must be combined with clinical observations
and patient history.
Nucleic Acid Amplification test (NAAT)performed on the
[employer] platform.
--- NOTE | 2023-12-31 09:52 | PTOTSP ---
Dysphagia Evaluation
Patient is at an acute elevated risk for post-extubation dysphagia given hoarse vocal quality (mild) and throat clearing after brief intubation this admission. She denied any past/present signs of dysphagia/aspiration. She presents with signs
which may be concerning for possible mild pharyngeal dysphagia.
Recommend:
1. Regular (pick soft/moist foods), Thin Liquids
2. Medications as best tolerated
3. Strategies: pick soft/moist foods
4. Dysphagia therapy follow up at the acute care level for therapeutic reassessment and to determine if further objective swallowing assessment warranted.
--- NOTE | 2023-12-31 10:52 | W.PN.HOSP.TC ---
Today's Communication/Plan
-
Trial of diuresis
Wean oxygen as tolerated
Monitor creatinine
Assessment / Plan
Assessment / Plan
General: cachetic,
HEENT: nc noted,
Respiratory: Rales; No Wheezes
Cardiac: S1/S2, Regular Rhythm and Tachycardia positive right radial and ulnar pulses. Able to flex and extend right wrist without difficulty. States of chronic arthritis.
GI: Soft and Non Tender
Musculoskeletal: No Edema, R forearm with marking noted. No evidence of skin necrosis peeling or edema noted.
Skin: Warm and Dry; No Rash
Neuro: Sedated
Psych: Calm
Acute hypoxic Respiratory Failure s/p mechanical ventilation and intubation and status post extubation
Acute Pulmonary Edema
Acute on chronic systolic heart failure exacerbation
-s/p emergent intubation in the ER s/p extubation on nasal cannula
-Restarted on Lasix and monitor response monitor blood pressure
-trend Troponin
-TTE ejection fraction 40%. Mild concentric LVH with mild global hypokinesis. Aortic sclerosis.
-daily weights, strict I/O
-Appreciate functional skills tutor and cardiology recs
-Status post extubation and passed swallow eval. Restart diet.
Abnormal troponin likely nonischemic myocardial injury multifactorial in the setting of respiratory failure, sepsis, shock, urgency on admission
Hypertensive emergency
-SBP 200's initially in ER
-Hold metoprolol, Entresto, Spironolactone
-Hold nitropaste
Elevated creatinine likely secondary in setting of prerenal versus ATN with blood pressure fluctuation
-Monitor creatinine with diuresis now
Shock likely septic
-Echocardiogram as above
-Flu negative. COVID-negative
-Follow-up on the blood cultures
-Pro-Alberto was low. Tracheal aspirate positive for gram-negative bacilli..
-Vancomycin and Doxy discontinued. Switch to cefepime. Await final culture data.
Hyperglycemia
-likely stress response, no hx diabetes
-F/U A1c at 5.8
Former smoker
-Monitor.
Suspected levophed extravasation
-s/p phentolamine
-Wound care eval
Subclinical hypothyroidism likely in the setting of acute illness
-should be repeated when not in acute illness
CAD
-non-obstructive by cath 2022
-WEB SITE SPECIALIST asa/statin
Thrombocytosis likely secondary to sepsis
Continue to trend
PUD s/p Billroth II procedure
-IV Protonix
DVT PPx lovenox subQ
FULL CODE
Critically ill.
Anticipated Discharge: > 48 hours
Subjective/Interval History
-
Date of Service: December 31, 2023
s/p extubation on 12/29
remains on NC
states feeling weak
just received PICC line
Objective Data
-
Labs:
Laboratory Results
12/31/23 12/31/23 12/31/23
03:50 05:09 10:41
WBC Cancelled 14.4 H
Hgb Cancelled 9.1 L
Hct Cancelled 30.5 L
Plt Count Cancelled 393 D
Sodium Cancelled 141
Potassium Cancelled 4.1 Pending
Chloride Cancelled 112 H
Carbon Dioxide Cancelled 23
BUN Cancelled 34 H
Creatinine Cancelled 1.2 H
Glucose Cancelled 87
Calcium Cancelled 7.8 L
Vital Signs:
Vital Signs
Temp Pulse Resp BP Pulse Ox
98.4 F 96 28 99/82 95
12/31/23 07:42 12/31/23 10:00 12/31/23 10:00 12/31/23 10:00 12/31/23 10:00
I&O
12/30/23 12/31/23 01/01/24
06:59 06:59 06:59
Intake Total 581.4 / 584.1 1005.9 / 1005.9 240 / 240
Output Total 580 / 610 625.0 / 625.0 725 / 725
Balance 1.4 / -25.9 380.9 / 380.9 -485 / -485
Data Reviewed
-
Total Time Spent with Patient (in minutes): 55
[2023-12-31 11:03] LABS: Magnesium 1.6 mg/dl (1.6-2.3); Potassium 3.8 mmol/L (3.5-5.1)
--- NOTE | 2023-12-31 11:05 | PTCARENOTE ---
8 beat run VT, precast worker notified, labs sent. results tiger text to precast worker.
[2023-12-31] MEDS: MAGNESIUM SULFATE 100 IV (11:37)
[2023-12-31 11:49] LABS: Glucose - Point of Care 104 mg/dl (70-99)
--- NOTE | 2023-12-31 12:07 | PTCARENOTE ---
Addendum entered by Sonya Trejo RN 12/31/23 12:08:
patient states numbness left fingers almost resolved
Original Note:
reassessed, oxygen incresed to 2 liters. diuresing clear yellow urine. magnesium infusing. OOB to chair, bedside commode. large amount semi formed soft stool
--- NOTE | 2023-12-31 12:11 | PN.CDI ---
CDI
- -
CDI:
Physician Documentation Request
Admit Date: 12/30/23 01:22
Dear Doctor Kayla,
Please review the following and provide your response in the progress notes.
Clinical Indicators:
Pt admitted with Acute on Chronic Systolic CHF / Acute extravasation Hypoxic /Hypercapnic respiratory failure Intubated in ED now extubated
Update note 12/29 , ' Shock likely septic ...Continues to spike fever...procal low but with patient's clinical presentation will start broad spectrum antibiotics for now...'
Progress note 12/30, ' Shock likely septic... Tracheal aspirate positive for gram-negative bacilli..Vancomycin and Doxy discontinued. Switch to cefepime. '
Exploration Engineer note 12/30, ' Fever/leukocytosis: Cannot rule out pneumonia-aspiration pneumonitis also a possibility Pneumonia a possibility Abnormal UA: UTI also possible...'
On admission Tmax 100.9,WBC 14.7, HR 132, Respirations 34
Please clarify which of the following most accurately describes the status of the patient's infection:
Sepsis-POA
- Systemic manifestations of infection, with 2 or more SIRS criteria which include:
- Fever >100.4 degrees F or hypothermia < 96.8 degrees F
- Leukocytosis - WBC > 12,000 or leukopenia - WBC < 4,000 or > 10% bands
- Tachycardia > 90 beats per minute
- Tachypnea - RR > 20 breaths per minute or PaCO2 , 32mmHg
Source: Merck Manual 2013
Pneumonia only , Without Systemic Illness
Other
Use of terms such as suspected, likely, concern for, or probable (associated with a specific diagnosis that is being evaluated, monitored, or treated as if it exists) are acceptable and can be coded in the inpatient setting, when documented at the
time of discharge.
Thank you,
Marina Washington RN
CDI Specialist
[facility]
Please use your independent medical judgment in providing your response.
--- NOTE | 2023-12-31 12:19 | PN.CDI ---
CDI
- -
CDI:
Physician Documentation Request
Admit Date: 12/30/23 01:22
Dear Doctor Kayla,
Please review the following and provide your response in the progress notes.
Clinical Indicators:
Pt admitted with Acute on Chronic Systolic CHF / Acute extravasation Hypoxic /Hypercapnic respiratory failure Intubated in ED now extubated
Update note 12/29 , ' Shock likely septic ...Continues to spike fever...procal low but with patient's clinical presentation will start broad spectrum antibiotics for now...'
Progress note 12/30, ' Shock likely septic... Tracheal aspirate positive for gram-negative bacilli..Vancomycin and Doxy discontinued. Switch to cefepime. '
Golf Ball Cover Treater note 12/30, ' Fever/leukocytosis: Cannot rule out pneumonia-aspiration pneumonitis also a possibility Pneumonia a possibility Abnormal UA: UTI also possible...'
On admission Tmax 100.9,WBC 14.7, HR 132, Respirations 34
Please clarify the following:
__Sepsis _ was present on admission
__Sepsis _ was not present on admission
Unable to determine
Use of terms such as suspected, likely, concern for, or probable (associated with a specific diagnosis that is being evaluated, monitored, or treated as if it exists) are acceptable and can be coded in the inpatient setting, when documented at the
time of discharge.
Thank you,
Marina Washington RN
CDI Specialist
[place] [facility]
Please use your independent medical judgment in providing your response.
--- NOTE | 2023-12-31 13:28 | WOUNDNOTE ---
[facility] RN NOTE: Reviewed chart, spoke to RN and met with patient. Patient s/p suspected levophed extravasation. Patient has been treated with phentolamine. At time of assessment patient denies complaints of right forearm and skin is intact, slightly
red and swollen. Spoke to patients RN and plan is to continue to assess for changes. Patient OOB with chair cushion eating lunch. Will continue to follow as needed.
--- NOTE | 2023-12-31 15:52 | W.PN.UPDATE ---
Update Note
Progress Note Update
Has been hemodynamically stable.
Oxygen supplementation has been weaned off.
Dias catheter has been discontinued
Will transfer to telemetry.
Critical care team will sign off.
Call pulmonary if any respiratory issues arise.
--- NOTE | 2023-12-31 15:57 | PTCARENOTE ---
reassessed. colon removed. oob to chair. pulse oximeter 93-94 on room air. Vibrating Screed Operator at bedside. down grade to tele, spouse at bedside. updated. call fajardo in reach
[2023-12-31] MEDS: LOVENOX 30 MG SC (17:04)
[2023-12-31 17:21] LABS: Glucose - Point of Care 72 mg/dl (70-99)
[2023-12-31 21:49] LABS: Glucose - Point of Care 89 mg/dl (70-99)
--- NOTE | 2023-12-31 23:23 | PTCARENOTE ---
Received patient AAOx3, following commands, denying pain. Normal sinus with LBBB, 80s-90s. BP stable, 100s/70s. No edema, weak pedal pulses bilaterally, normal radial pulses bilaterally. On 1 liter nasal cannula, saturating 93%. Lung sounds
diminished throughout. Abdomen soft, round, nontender. Positive bowel sounds. Last BM today. Commode to void, putting out yellow urine. Sacral foam on for protection. Right arm midline WNL, patent. Call fajardo within reach, patient able to make needs
known.
[2024-01-01] VITALS (9 sets, daily range): BP systolic 100–139; BP diastolic 53–98; O2SAT 97; BMI 17.3
[2024-01-01 05:00] LABS: % Basophils 0.3 % (0-2); % Eosinophils 1.6 % (0-6); % Immature Granulocytes 0.3 % (0-0.5); % Monocytes 8.8 % (1.7-9.3); Absolute Eosinophils 0.2 10^3/uL (0-0.7); Absolute Monocytes 0.9 10^3/uL (0.1-0.6); Absolute Neutrophils 7.6 10^3/uL (1.4-6.5); Hematocrit 28.2 % (37.0-47.0); Hemoglobin 8.4 g/dL (12.0-16.0); Mean Corp Hgb Conc. 29.8 g/dL (33.0-37.0); Mean Corpuscular Hgb 22.9 pg (27.0-31.0); Mean Corpuscular Volume 76.8 fL (81.0-99.0); Mean Platelet Volume 10.5 fL (7.4-10.4); Nucleated Red Blood Cells % 0 %; Platelet Count 391 10^3/uL (130-400); Red Blood Cell Count 3.67 10^6/uL (4.20-5.40); Red Cell Dist. Width 19.2 % (11.5-14.5); White Blood Cell Count 9.6 10^3/uL (4.8-10.8)
[2024-01-01 05:23] LABS: Blood Urea Nitrogen 33 mg/dl (7-17); Calcium 8.8 mg/dl (8.4-10.2); Carbon Dioxide 23 mmol/L (22-30); Chloride 113 mmol/L (98-107); Estimated Creatinine Clearance 44 ml/min; Glucose 80 mg/dl (70-99); Potassium 4.2 mmol/L (3.5-5.1); Sodium 139 mmol/L (135-145); eGFR > 60.00
[2024-01-01] MEDS: STERILE WATER FOR INJECTION 10 ML IV ×2 (05:45→21:22)
[2024-01-01] MEDS: MAXIPIME 2000 MG IV (05:45)
[2024-01-01 07:44] LABS: Glucose - Point of Care 84 mg/dl (70-99)
--- NOTE | 2024-01-01 08:25 | W.PN.CD ---
Today's Communication / Plan
-
weight is up: lasix 40mg IV x1 today
BP better: add back Toprol XL at 25mg bid
assess to resume entresto and aldactone as BP, renal function allows
Impression / Plan
-
A:73 y/o female with NICM EF 40-45%, non-obstructive CAD (60% LCX cath 2022), hypertension, LBBB, pSVT, hypokalemia, orthostasis, PUD s/p Billroth II procedure, iron deficient anemia who is here for evaluation of sudden onset SOB last night. She was
intubated in the ER for respiratory distress. BP very elevated on arrival (200/109), however became hypotensive and unable o tolerate lasix. She is now extubated.
Acute hypoxic respiratory failure: likely PNA/COPD
-successfully extubated
-continuing abx
NICM, HFmEF: acute on chronic
-echo 12/29: EF 40%, nl RV, no sig valve disease
-home meds (Toprol XL, entresto, aldactone) held in setting of hypotension
-weight is up: lasix 40mg IV x1 today
-not on standing lasix at home
-BP better: add back Toprol XL at 25mg bid
-assess to resume entresto and aldactone as BP, renal function allows
KODAK: improved with diuresis
NSVT
-8 beats on tele
-add back home Toprol XL, and trend tele
HTN:
-severe on arrival in setting of respiratory distress, then with hypotension requiring pressor support
-add back meds as BP allows
CAD:
-stable, no angina
-ASA, statin, BB a
Abnormal troponin:
-acute non-ischemic myocardial injury in setting of respiratory failure, sepsis, hypo/hypertension
LBBB: chronic, stable
Physical Exam
Vital Signs/Labs
Vital Signs
Temp Pulse Resp BP Pulse Ox
97.3 F 64 16 100/53 92
01/01/24 07:38 01/01/24 06:45 01/01/24 06:45 01/01/24 04:00 12/31/23 21:38
12/31/23 01/01/24 01/02/24
06:59 06:59 06:59
Actual Weight 45.3 kg 47.1 kg
01/01/24 04:42
01/01/24 04:42
PT 14.9 Sec (11.4-14.6) H 12/29/23 23:29
INR 1.19 12/29/23 23:29
APTT 28.2 Sec (23.4-35.0) 12/29/23 23:29
Magnesium 1.6 mg/dl (1.6-2.3) 12/31/23 10:41
Triglycerides 54 mg/dl (10-149) 12/30/23 03:04
LDL Cholesterol, Calc 50 mg/dl 12/30/23 03:04
VLDL Cholesterol, Calc 10 mg/dl (0-30) 12/30/23 03:04
HDL Cholesterol 44 mg/dl 12/30/23 03:04
TSH 9.02 uIU/ml (0.47-4.68) H 12/29/23 23:29
Free T4 1.15 ng/dl (0.78-2.19) 12/29/23 23:29
12/29/23
23:29
Ixl-R-Vzrrpvogkok Pept 7520
LAB Results
12/29/23 12/30/23 12/30/23
23:29 03:10 09:33
Troponin I 0.020 0.334 H* D 0.983 H* D
12/30/23 12/30/23
15:48 21:00
Troponin I 0.887 H* Cancelled
Physical Exam
Constitutional: No acute distress
EENT: Moist mucous membranes
Cardiovascular: Rhythm & rate is regular, Pedal edema is absent, Systolic murmur absent and JVD present
Respiratory: Respiratory effort normal and Lungs clear to auscul.
GI: Soft and Distention absent
Neuro/Psych: AO x 3
Data Reviewed
-
Date of Service: January 01, 2024
EKG: Other (Tele: SR 80s, 8 beats NSVT)
[2024-01-01] MEDS: LASIX 40 MG IV (09:16)
[2024-01-01] MEDS: NSS (PRESERVATIVE FREE) 10 ML IV (09:16)
[2024-01-01] MEDS: MIRALAX PO (09:17)
[2024-01-01] MEDS: TOPROL XL 25 MG PO ×2 (09:17→21:22)
[2024-01-01] MEDS: LIPITOR 20 MG PO (09:17)
[2024-01-01] MEDS: ASPIR LOW (ENTERIC COATED) 81 MG PO (09:17)
[2024-01-01] MEDS: PROTONIX IV 40 MG IV (09:17)
--- NOTE | 2024-01-01 10:37 | VATNOTE ---
Infiltrate site noted to continue to be red with minimal swelling. Pt notes that the site it tender to the touch. PCN placed warm compress to site for comfort. VAT team will continue to monitor infiltrate site.
--- NOTE | 2024-01-01 11:24 | W.PN.HOSP.TC ---
Today's Communication/Plan
-
Wean oxygen
IV Lasix
Metoprolol
Monitor blood pressure
IV antibiotics
Assessment / Plan
Assessment / Plan
General: cachetic,
HEENT: nc noted,
Respiratory: Rales; No Wheezes, on oxygen
Cardiac: S1/S2, Regular Rhythm and Tachycardia positive right radial and ulnar pulses. Able to flex and extend right wrist without difficulty. States of chronic arthritis.
GI: Soft and Non Tender
Musculoskeletal: No Edema, R forearm with marking noted. No evidence of skin necrosis peeling or edema noted.
Skin: Warm and Dry; No Rash
Neuro: Sedated
Psych: Calm
Acute hypoxic Respiratory Failure s/p mechanical ventilation and intubation and status post extubation
Acute Pulmonary Edema
Acute on chronic systolic heart failure exacerbation
-s/p emergent intubation in the ER s/p extubation on nasal cannula
-Restarted on Lasix and monitor response monitor blood pressure
-trend Troponin
-TTE ejection fraction 40%. Mild concentric LVH with mild global hypokinesis. Aortic sclerosis.
-daily weights, strict I/O
-Status post extubation and passed swallow eval. Restart diet.
-Appreciate cardiology recs
Abnormal troponin likely nonischemic myocardial injury multifactorial in the setting of respiratory failure, sepsis, shock, urgency on admission
Hypertensive emergency
-SBP 200's initially in ER
-Restarted on Lasix and Toprol
-Monitor blood pressure and creatinine and can consider restarting Entresto and Aldactone
KODAK likely secondary in setting of prerenal versus ATN with blood pressure fluctuation
-Monitor creatinine with diuresis now
Shock likely septic E. coli pneumonia-poa
-Echocardiogram as above
-Flu negative. COVID-negative
-Follow-up on the blood cultures
-Pro-Alberto was low. Tracheal aspirate positive for E. coli pansensitive.
-Vancomycin, Doxy and cefepime discontinued. Switch to ceftriaxone.
-Leukocytosis resolved.
Hyperglycemia
-likely stress response, no hx diabetes
-F/U A1c at 5.8
Former smoker
-Monitor.
Suspected levophed extravasation
-s/p phentolamine
-Wound care eval
Subclinical hypothyroidism likely in the setting of acute illness
-should be repeated when not in acute illness
CAD
-non-obstructive by cath 2022
-INDUSTRIAL RELATIONS DIRECTOR asa/statin
Thrombocytosis likely secondary to sepsis
Continue to trend
PUD s/p Billroth II procedure
-IV Protonix
DVT PPx lovenox subQ
FULL CODE
PT/OT
Anticipated Discharge: > 48 hours
Subjective/Interval History
-
Date of Service: January 01, 2024
Feeling better
Passing urine
Tolerating diet
On oxygen
Objective Data
-
Labs:
Laboratory Results
01/01/24
04:42
WBC 9.6
Hgb 8.4 L
Hct 28.2 L
Plt Count 391
Sodium 139
Potassium 4.2
Chloride 113 H
Carbon Dioxide 23
BUN 33 H
Creatinine 0.8
Glucose 80
Calcium 8.8
Vital Signs:
Vital Signs
Temp Pulse Resp BP Pulse Ox
97.3 F 88 20 137/88 93
01/01/24 07:38 01/01/24 09:17 01/01/24 09:13 01/01/24 09:17 01/01/24 09:28
I&O
12/31/23 01/01/24 01/02/24
06:59 06:59 06:59
Intake Total 1005.9 / 1005.9 940 / 940 480 / 480
Output Total 625.0 / 625.0 2620 / 2620 750 / 750
Balance 380.9 / 380.9 -1680 / -1680 -270 / -270
Data Reviewed
-
Total Time Spent with Patient (in minutes): 56
[2024-01-01 12:02] LABS: Glucose - Point of Care 131 mg/dl (70-99)
--- NOTE | 2024-01-01 13:57 | CM ---
CM following re: discharge planning.
Reviewed pt's chart, met with pt and pt's Sourav at bedside.
PT and OT evaluations noted - SNF level of care vs acute rehab recommended.
CM discussed it with pt and her and both pt and her preferred pt returns back home at discharge. pt's stated that 2 sons live with them and they can help daily. Also, pt's stated he does not work and he can help. CM
explained the benefits of SNF and acute rehab level of care and pt's stated he, the pt and their son will think and they will come up with a final decision. Pt stated she was receiving outpatient PT and OT prior to admission, she liked there
very much and she would prefer to continue outpatient PT/OT or home PT.
D/C plan: pt preferred home with VN. Final decision regarding SNF or acute rehab to come.
CM will follow with discharge plan updates as hospitalization progresses
--- NOTE | 2024-01-01 14:14 | PTCARENOTE ---
patient assessments per work list. moist productive cough. maintained on 1 liter nasal cannula, I/S encouraged. tearful today, support given
--- NOTE | 2024-01-01 14:41 | PTCARENOTE ---
patient ambulated in hallway using rolling walker. tolerated well
[2024-01-01 17:09] LABS: Glucose - Point of Care 126 mg/dl (70-99)
[2024-01-01] MEDS: LOVENOX 30 MG SC (17:52)
[2024-01-01] MEDS: ROCEPHIN 1000 MG IV (21:22)
--- NOTE | 2024-01-01 22:27 | PTCARENOTE ---
Received patient AAOx3 in bed, following commands, denying pain. Normal sinus, 60s-80s with BBB. BP stable, 120s/90s. Palpable radial and pedal pulses bilaterally. +1 edema on right arm. On 1 liter nasal cannula, saturating 96%. Lung sounds
diminished throughout. Abdomen soft, positive bowel sounds. Assisted to commode to void, yellow urine. Sacral foam intact for protection. Midline patent, WNL. Call fajardo within reach, able to make needs known.
[2024-01-01 23:34] LABS: Glucose - Point of Care 91 mg/dl (70-99)
[2024-01-02 00:25] VITALS: BP 125/50
--- NOTE | 2024-01-02 04:43 | PTCARENOTE ---
Assisted patient to commode, voided yellow urine. Perineal care done, CHG bath done, new gown and sheets. Labs sent. Denture/mouth care done.
[2024-01-02 04:48] VITALS: BP 140/51
[2024-01-02 05:24] LABS: % Basophils 0.6 % (0-2); % Eosinophils 2.9 % (0-6); % Immature Granulocytes 0.4 % (0-0.5); % Lymphocytes 18.3 % (20.5-51.1); % Monocytes 8.2 % (1.7-9.3); % Neutrophils 69.6 % (42.2-75.2); Absolute Basophils 0.1 10^3/uL (0-0.2); Absolute Eosinophils 0.3 10^3/uL (0-0.7); Absolute Lymphocytes 1.6 10^3/uL (1.2-3.4); Absolute Monocytes 0.7 10^3/uL (0.1-0.6); Hematocrit 30.4 % (37.0-47.0); Hemoglobin 9.2 g/dL (12.0-16.0); Mean Corp Hgb Conc. 30.3 g/dL (33.0-37.0); Mean Corpuscular Hgb 22.7 pg (27.0-31.0); Mean Corpuscular Volume 74.9 fL (81.0-99.0); Mean Platelet Volume 10.2 fL (7.4-10.4); Nucleated Red Blood Cells % 0 %; Platelet Count 456 10^3/uL (130-400); Red Blood Cell Count 4.06 10^6/uL (4.20-5.40); Red Cell Dist. Width 18.9 % (11.5-14.5); White Blood Cell Count 8.6 10^3/uL (4.8-10.8)
[2024-01-02 05:44] LABS: Blood Urea Nitrogen 38 mg/dl (7-17); Calcium 9.2 mg/dl (8.4-10.2); Carbon Dioxide 24 mmol/L (22-30); Chloride 110 mmol/L (98-107); Estimated Creatinine Clearance 46 ml/min; Glucose 87 mg/dl (70-99); Potassium 4.4 mmol/L (3.5-5.1); Sodium 139 mmol/L (135-145); eGFR > 60.00
[2024-01-02 06:00] VITALS: BMI 17.2
--- NOTE | 2024-01-02 06:32 | W.PN.HOSP.TC ---
Today's Communication/Plan
-
.
Assessment / Plan
Assessment / Plan
Physical exam:
General: not in distress
HEENT: moist MM. No runny nose.
Respiratory: limited, no wheezes
Cardiac: S1/S2,
GI: Soft and Non Tender
Musculoskeletal: No Edema, R forearm with marking noted. No evidence of skin necrosis peeling or edema noted.
Skin: Warm and Dry; No Rash
Neuro: AAO to self and surroundings. She followed commands appropirately.
Psych: Calm
# Acute hypoxic Respiratory Failure s/p mechanical ventilation and intubation and status post extubation
Acute Pulmonary Edema
Acute on chronic systolic heart failure exacerbation
-s/p emergent intubation in the ER s/p extubation on nasal cannula
- No chest pain
-TTE ejection fraction 40%. Mild concentric LVH with mild global hypokinesis. Aortic sclerosis.
-daily weights, strict I/O
-Status post extubation and passed swallow eval. Restart diet.
-Appreciate cardiology recs
#Abnormal troponin likely nonischemic myocardial injury multifactorial in the setting of respiratory failure, sepsis, shock, urgency on admission
Hypertensive emergency, resolved.
-SBP 200's initially in ER
-Restarted on Lasix and Toprol
-Monitor blood pressure and creatinine and can consider restarting Entresto and Aldactone
#KODAK likely secondary in setting of prerenal versus ATN with blood pressure fluctuation
-Monitor creatinine with diuresis now
# Shock likely septic E. coli pneumonia-poa
No SOB, no cough
-Echocardiogram as above
-Flu negative. COVID-negative
- Negative blood cultures
-Pro-Alberto was low. Tracheal aspirate positive for E. coli pansensitive.
-Vancomycin, Doxy and cefepime discontinued. Switched to ceftriaxone day #4. Will change to 2 gm for PNA TX.
-Leukocytosis resolved.
Hyperglycemia
-likely stress response, no hx diabetes
-F/U A1c at 5.8
Former smoker
-Monitor.
Suspected levophed extravasation
-s/p phentolamine
-Wound care eval
Subclinical hypothyroidism likely in the setting of acute illness
-should be repeated when not in acute illness
CAD
-non-obstructive by cath 2022
-SOD STRIPPER asa/statin
Thrombocytosis likely secondary to sepsis
Continue to trend
PUD s/p Billroth II procedure
-IV Protonix
DVT PPx lovenox subQ
FULL CODE
PT/OT
Anticipated Discharge: > 48 hours
Subjective/Interval History
-
Date of Service: January 02, 2024
No chest pain
No sob
Objective Data
-
Labs:
Laboratory Results
01/02/24
04:51
WBC 8.6
Hgb 9.2 L
Hct 30.4 L
Plt Count 456 H
Sodium 139
Potassium 4.4
Chloride 110 H
Carbon Dioxide 24
BUN 38 H
Creatinine 0.8
Glucose 87
Calcium 9.2
Vital Signs:
Vital Signs
Temp Pulse Resp BP Pulse Ox
97.8 F 50 23 140/51 96
01/02/24 03:00 01/02/24 06:00 01/01/24 14:00 01/02/24 04:48 01/01/24 22:04
I&O
12/31/23 01/01/24 01/02/24
06:59 06:59 06:59
Intake Total 1005.9 / 1005.9 940 / 940 720 / 720
Output Total 625.0 / 625.0 2620 / 2620 1900 / 1900
Balance 380.9 / 380.9 -1680 / -1680 -1180 / -1180
[2024-01-02 07:40] LABS: Glucose - Point of Care 86 mg/dl (70-99)
[2024-01-02] MEDS: PROTONIX 40 MG PO (07:48)
[2024-01-02] MEDS: MIRALAX 17 GRAMS PO (07:48)
[2024-01-02] MEDS: TOPROL XL 25 MG PO ×2 (07:48→20:36)
[2024-01-02] MEDS: LIPITOR 20 MG PO (07:48)
[2024-01-02] MEDS: ASPIR LOW (ENTERIC COATED) 81 MG PO (07:48)
[2024-01-02 09:26] VITALS: BP 144/92
--- NOTE | 2024-01-02 09:26 | PTCARENOTE ---
Received pt awake and alert.Speech is appropriate.+MARIE.Gait is steady with 1 person minimal assist to chair.Denies pain.SR with BBB noted.Left midline IV access intact.POX 93% on RA.Decreased breath sounds throughout.+ INIGUEZ noted.Appetite good.+
BM.Voiding yellow urine.Plan of care discussed with pt.Pt for tele transfer as per MD order.
[2024-01-02 12:17] VITALS: BP 137/59
--- NOTE | 2024-01-02 12:19 | PTCARENOTE ---
Pt assessed.No change in assessment noted.POX 93% on RA.Pt ambulated in room with walker with staff at her side.Gait is steady.
[2024-01-02] MEDS: STERILE WATER FOR INJECTION 20 ML IV (12:24)
[2024-01-02] MEDS: ROCEPHIN 2000 MG IV (12:24)
--- NOTE | 2024-01-02 12:24 | W.PN.CD ---
Addendum entered and electronically signed by Chandan Harding MD 01/02/24 13:51:
Patient seen and examined in collaboration with HAT MEASURER; agree with below.
-Volume status appears to be stable; no Lasix today.
-Continue current medications.
-Continue Toprol-XL 25 mg twice daily.
Original Note:
Today's Communication / Plan
-
-does not appear to need lasix today. Monitor volume.
-continue metoprolol and monitor response. Resume other GDMT as able (not yet).
Impression / Plan
-
A:73 y/o female with NICM EF 40-45%, non-obstructive CAD (60% LCX cath 2022), hypertension, LBBB, pSVT, hypokalemia, orthostasis, PUD s/p Billroth II procedure, iron deficient anemia who is here for evaluation of sudden onset SOB last night. She was
intubated in the ER for respiratory distress. BP very elevated on arrival (200/109), however became hypotensive and unable o tolerate lasix. She is now extubated.
Acute hypoxic respiratory failure: likely PNA/COPD - improved
-successfully extubated
-s/p ABX
-now on RA
NICM, HFmEF: acute on chronic
-echo 12/29: EF 40%, nl RV, no sig valve disease
-home meds (Toprol XL, entresto, aldactone) held in setting of hypotension
-she is s/p a dose of IV lasix 01/01/24- does not appear volume overloaded today
-metoprolol 25 mg PO BID resumed 12/31- monitor response
-assess to resume entresto and aldactone as BP, renal function allows- not yet
KODAK:
-resolved
NSVT
-continue BB and monitor telemetry
HTN:
-severe on arrival in setting of respiratory distress, then with hypotension requiring pressor support
-stabilizing- add back meds as BP allows
CAD:
-stable, no angina
-ASA, statin, BB
Abnormal troponin:
-acute non-ischemic myocardial injury in setting of respiratory failure, sepsis, hypo/hypertension
LBBB: chronic, stable
Physical Exam
Vital Signs/Labs
Vital Signs
Temp Pulse Resp BP Pulse Ox
97.9 F 81 23 140/51 93
01/02/24 11:26 01/02/24 09:00 01/01/24 14:00 01/02/24 04:48 01/02/24 08:00
01/01/24 01/02/24 01/03/24
06:59 06:59 06:59
Actual Weight 47.1 kg 47 kg
01/02/24 04:51
01/02/24 04:51
PT 14.9 Sec (11.4-14.6) H 12/29/23 23:29
INR 1.19 12/29/23 23:29
APTT 28.2 Sec (23.4-35.0) 12/29/23 23:29
Magnesium 1.6 mg/dl (1.6-2.3) 12/31/23 10:41
Triglycerides 54 mg/dl (10-149) 12/30/23 03:04
LDL Cholesterol, Calc 50 mg/dl 12/30/23 03:04
VLDL Cholesterol, Calc 10 mg/dl (0-30) 12/30/23 03:04
HDL Cholesterol 44 mg/dl 12/30/23 03:04
TSH 9.02 uIU/ml (0.47-4.68) H 12/29/23 23:29
Free T4 1.15 ng/dl (0.78-2.19) 12/29/23 23:29
12/29/23
23:29
Lhn-J-Tvfkiagtwic Pept 7520
LAB Results
12/30/23 12/30/23
15:48 21:00
Troponin I 0.887 H* Cancelled
Physical Exam
Constitutional: No acute distress
EENT: Anicteric
Cardiovascular: Rhythm & rate is regular and Pedal edema is absent
Respiratory: Respiratory effort normal and Lungs clear to auscul.
Neuro/Psych: AO x 3
Data Reviewed
-
Date of Service: January 02, 2024
[2024-01-02 12:25] LABS: Glucose - Point of Care 94 mg/dl (70-99)
--- NOTE | 2024-01-02 15:51 | VATNOTE ---
Completed routine assessment of pt's levophed infiltrate, per patient it is feeling and looking better. No swelling noted. There is still discoloration at the site. Heat applied at this time.
--- NOTE | 2024-01-02 16:00 | PTCARENOTE ---
Pt assessed.No change in assessment noted.Pt remains OOB in chair.Denies pain.
[2024-01-02 17:58] LABS: Glucose - Point of Care 105 mg/dl (70-99)
--- NOTE | 2024-01-02 18:00 | PTCARENOTE ---
Report given to 3 Acute RN.
[2024-01-02] MEDS: LOVENOX 30 MG SC (18:16)
[2024-01-02 18:40] VITALS: BP 142/67
[2024-01-02 23:20] VITALS: BP 124/76
[2024-01-03 04:00] VITALS: BP 146/75
[2024-01-03 06:00] VITALS: BMI 16.3
[2024-01-03 07:00] VITALS: BP 141/88
--- NOTE | 2024-01-03 07:53 | VATNOTE ---
Patient with reported right arm infiltrate from 5/. Right forearm with bruising and redness noted, and tender to touch. Patient states area is 'much better' than it was. No swelling or drainage noted.
[2024-01-03] MEDS: LIPITOR 20 MG PO (08:03)
[2024-01-03] MEDS: PROTONIX 40 MG PO (08:03)
[2024-01-03] MEDS: ASPIR LOW (ENTERIC COATED) 81 MG PO (08:04)
[2024-01-03] MEDS: TOPROL XL 25 MG PO ×2 (08:04→20:53)
[2024-01-03] MEDS: MIRALAX 17 GRAMS PO (08:04)
[2024-01-03 08:25] LABS: Glucose - Point of Care 68 mg/dl (70-99)
[2024-01-03 08:47] LABS: Glucose - Point of Care 74 mg/dl (70-99)
[2024-01-03 11:00] VITALS: BP 127/70
--- NOTE | 2024-01-03 11:14 | CM ---
Reviewed chart, indication from PT/OT is rehab. Met with patient to discuss. Patient stated that her spouse and two adult sons live with her and are extremely supportive and in a position to help support her physically. Reviewed benefits of rehab,
particularly acute as that was previously discussed and patient was pleasant but very firm that she will not consider. Patient was offered VN however declined that as well.
Plan: Case management will continue to follow and assist with discharge planning. It was reinforced to patient that rehab is indicated and medically necessary however she is declining at this time.
--- NOTE | 2024-01-03 11:44 | W.PN.HOSP.TC ---
Today's Communication/Plan
-
.
Assessment / Plan
Assessment / Plan
Physical exam:
General: not in distress
HEENT: moist MM. No runny nose.
Respiratory: limited, no wheezes
Cardiac: S1/S2,
GI: Soft and Non Tender
Musculoskeletal: No Edema, R forearm with marking noted. No evidence of skin necrosis peeling or edema noted.
Skin: Warm and Dry; No Rash
Neuro: AAO to self and surroundings. She followed commands appropirately.
Psych: Calm
# Acute hypoxic Respiratory Failure s/p mechanical ventilation and intubation and status post extubation
Acute Pulmonary Edema
Acute on chronic systolic heart failure exacerbation
-s/p emergent intubation in the ER s/p extubation on nasal cannula
Seems to be doing better, off nasal O2 for now
- No chest pain
-TTE ejection fraction 40%. Mild concentric LVH with mild global hypokinesis. Aortic sclerosis.
-daily weights, strict I/O
-Status post extubation and passed swallow eval. Restarted diet.
-Appreciate cardiology recs
#Abnormal troponin likely nonischemic myocardial injury multifactorial in the setting of respiratory failure, sepsis, shock, urgency on admission
Hypertensive emergency, resolved.
-SBP 200's initially in ER
-Restarted on Lasix and Toprol
-Monitor blood pressure and creatinine and can consider restarting Entresto and Aldactone
#KODAK likely secondary in setting of prerenal versus ATN with blood pressure fluctuation
-Monitor creatinine with diuresis now
# Shock likely septic E. coli pneumonia-poa
No SOB, no cough
-Echocardiogram as above
-Flu negative. COVID-negative
- Negative blood cultures
-Pro-Alberto was low. Tracheal aspirate positive for E. coli pansensitive.
-Vancomycin, Doxy and cefepime discontinued. Switched to ceftriaxone day #5. Changed dose 2 gm for PNA TX.
-Leukocytosis resolved.
Hyperglycemia
-likely stress response, no hx diabetes
-F/U A1c at 5.8
Former smoker
-Monitor.
Suspected levophed extravasation
-s/p phentolamine
-Wound care eval
Subclinical hypothyroidism likely in the setting of acute illness
-should be repeated when not in acute illness
CAD
-non-obstructive by cath 2022
-REFERENCE ARCHIVIST asa/statin
Thrombocytosis likely secondary to sepsis
Continue to trend
PUD s/p Billroth II procedure
-IV Protonix
DVT PPx lovenox subQ
FULL CODE
PT/OT
Anticipated Discharge: 24 - 48 hours
Subjective/Interval History
-
Date of Service: January 03, 2024
No complaints
No sob
No hypoxia
No fevers
Objective Data
-
Vital Signs:
Vital Signs
Temp Pulse Resp BP Pulse Ox
98.0 F 65 16 127/70 93
01/03/24 11:00 01/03/24 11:00 01/03/24 11:00 01/03/24 11:00 01/03/24 11:00
I&O
01/02/24 01/03/24 01/04/24
06:59 06:59 06:59
Intake Total 720 / 720 640 / 640
Output Total 1900 / 1900 775 / 775
Balance -1180 / -1180 -135 / -135
[2024-01-03 12:08] LABS: Glucose - Point of Care 93 mg/dl (70-99)
--- NOTE | 2024-01-03 13:40 | W.PN.CD ---
Today's Communication / Plan
-
-Home medications (Toprol XL, entresto, aldactone) were held in setting of hypotension; Toprol-XL was resumed, but unable to add further GDMT due to blood pressure limitations at this time--reevaluate as outpatient.
-She is s/p a dose of IV lasix 01/01/24- does not appear volume overloaded; no standing diuretic appears to be indicated at this time.
-Add SGLT2 inhibitor as outpatient after clinically improved from a pneumonia standpoint.
-No further cardiac recommendations at this time; outpatient follow-up with Cardiology.
Impression / Plan
-
A:73 y/o female with NICM EF 40-45%, non-obstructive CAD (60% LCX cath 2022), hypertension, LBBB, pSVT, hypokalemia, orthostasis, PUD s/p Billroth II procedure, iron deficient anemia who is here for evaluation of sudden onset SOB last night. She was
intubated in the ER for respiratory distress. BP very elevated on arrival (200/109), however became hypotensive and unable o tolerate lasix. She is now extubated.
Acute hypoxic respiratory failure: likely PNA/COPD - improved
-Transferred to floors; appears to be clinically stable.
NICM, HFmEF: acute on chronic
-echo 12/29: EF 40%, nl RV, no sig valve disease
-Home medications (Toprol XL, entresto, aldactone) were held in setting of hypotension; Toprol-XL was resumed, but unable to add further GDMT due to blood pressure limitations at this time--reevaluate as outpatient.
-She is s/p a dose of IV lasix 01/01/24- does not appear volume overloaded; no standing diuretic appears to be indicated at this time.
-Add SGLT2 inhibitor as outpatient after clinically improved from a pneumonia standpoint.
KODAK:
-resolved
NSVT
-continue BB.
HTN:
-Blood pressure is currently controlled.
CAD:
-Remains stable, no angina
-ASA, statin, BB
Abnormal troponin:
-acute non-ischemic myocardial injury in setting of respiratory failure, sepsis, hypo/hypertension
LBBB: chronic, stable
Physical Exam
Vital Signs/Labs
Vital Signs
Temp Pulse Resp BP Pulse Ox
98.0 F 65 16 127/70 93
01/03/24 11:00 01/03/24 11:00 01/03/24 11:00 01/03/24 11:00 01/03/24 11:00
01/02/24 01/03/24 01/04/24
06:59 06:59 06:59
Actual Weight 47 kg 44.452 kg
01/02/24 04:51
01/02/24 04:51
PT 14.9 Sec (11.4-14.6) H 12/29/23 23:29
INR 1.19 12/29/23 23:29
APTT 28.2 Sec (23.4-35.0) 12/29/23 23:29
Magnesium 1.6 mg/dl (1.6-2.3) 12/31/23 10:41
Triglycerides 54 mg/dl (10-149) 12/30/23 03:04
LDL Cholesterol, Calc 50 mg/dl 12/30/23 03:04
VLDL Cholesterol, Calc 10 mg/dl (0-30) 12/30/23 03:04
HDL Cholesterol 44 mg/dl 12/30/23 03:04
TSH 9.02 uIU/ml (0.47-4.68) H 12/29/23 23:29
Free T4 1.15 ng/dl (0.78-2.19) 12/29/23 23:29
12/29/23
23:29
Gfo-K-[id number] Pept 7520
Physical Exam
Constitutional: No acute distress and Comfortable
EENT: Anicteric
Cardiovascular: Rhythm & rate is regular, Pedal edema is absent, Systolic murmur absent and S1S2 is normal
Respiratory: Respiratory effort normal and Rhonchi Present (Bibasilar)
GI: Soft
Neuro/Psych: AO x 3
Other: Skin (Warm, dry, intact)
Data Reviewed
-
Date of Service: January 03, 2024
EKG: Tracing Personally Visualized and interpreted (Telemetry: Sinus rhythm)
Labs: Labs Reviewed by me
[2024-01-03] MEDS: ROCEPHIN 2000 MG IV (14:05)
[2024-01-03] MEDS: FLUSH (NSS) 2 FLUSH IV (14:06)
[2024-01-03] MEDS: STERILE WATER FOR INJECTION 20 ML IV (14:06)
[2024-01-03 14:53] VITALS: BP 118/88
[2024-01-03 16:33] LABS: Glucose - Point of Care 118 mg/dl (70-99)
[2024-01-03] MEDS: LOVENOX 30 MG SC (17:33)
[2024-01-03 19:47] VITALS: BP 147/60
[2024-01-03 21:21] LABS: Glucose - Point of Care 136 mg/dl (70-99)
[2024-01-03 23:52] VITALS: BP 144/75
[2024-01-04 03:48] VITALS: BP 140/92
[2024-01-04 04:43] LABS: Hematocrit 28.5 % (37.0-47.0); Hemoglobin 8.7 g/dL (12.0-16.0); Mean Corp Hgb Conc. 30.5 g/dL (33.0-37.0); Mean Corpuscular Hgb 22.7 pg (27.0-31.0); Mean Corpuscular Volume 74.2 fL (81.0-99.0); Mean Platelet Volume 10.8 fL (7.4-10.4); Platelet Count 434 10^3/uL (130-400); Red Blood Cell Count 3.84 10^6/uL (4.20-5.40); Red Cell Dist. Width 18.8 % (11.5-14.5); White Blood Cell Count 7.6 10^3/uL (4.8-10.8)
[2024-01-04 05:08] LABS: Blood Urea Nitrogen 32 mg/dl (7-17); Calcium 9.8 mg/dl (8.4-10.2); Carbon Dioxide 25 mmol/L (22-30); Chloride 107 mmol/L (98-107); Estimated Creatinine Clearance 58 ml/min; Glucose 91 mg/dl (70-99); Potassium 4.4 mmol/L (3.5-5.1); Sodium 140 mmol/L (135-145); eGFR > 60.00
[2024-01-04 05:53] VITALS: BMI 16.2
[2024-01-04 06:00] VITALS: BMI 16.2
--- NOTE | 2024-01-04 07:59 | VATNOTE ---
Right Arm extravasation area remains with 8cm x 1cm cord. Pt states it feels 'much better'. Will continue to monitor
[2024-01-04 08:07] VITALS: BP 151/82
[2024-01-04 08:17] LABS: Glucose - Point of Care 104 mg/dl (70-99)
[2024-01-04] MEDS: MIRALAX 17 GRAMS PO (08:48)
[2024-01-04] MEDS: PROTONIX 40 MG PO (08:59)
[2024-01-04] MEDS: ASPIR LOW (ENTERIC COATED) 81 MG PO (08:59)
[2024-01-04] MEDS: TOPROL XL 25 MG PO (08:59)
[2024-01-04] MEDS: LIPITOR 20 MG PO (08:59)
[2024-01-04 10:28] VITALS: O2SAT 90; O2SAT 93
[2024-01-04 11:10] VITALS: BP 138/84
[2024-01-04 11:52] LABS: Glucose - Point of Care 83 mg/dl (70-99)
--- NOTE | 2024-01-04 12:34 | W.PN.HOSP.TC ---
Today's Communication/Plan
-
P antibiotic and discharge
DC home with VNA
Assessment / Plan
Assessment / Plan
Physical exam:
General: not in distress
HEENT: moist MM. No runny nose.
Respiratory: limited, no wheezes
Cardiac: S1/S2,
GI: Soft and Non Tender
Musculoskeletal: No Edema, R forearm with marking noted. No evidence of skin necrosis peeling or edema noted.
Skin: Warm and Dry; No Rash
Neuro: AAO to self and surroundings. She followed commands appropriately.
Psych: Calm
# Acute hypoxic Respiratory Failure s/p mechanical ventilation and intubation and status post extubation
Acute Pulmonary Edema
Acute on chronic systolic heart failure exacerbation
-s/p emergent intubation in the ER s/p extubation on nasal cannula
-Seems to be doing better, off nasal O2 for now Home O2 evaluation. Did not qualify for home O2.
-No chest pain
-TTE ejection fraction 40%. Mild concentric LVH with mild global hypokinesis. Aortic sclerosis.
-daily weights, strict I/O
-Status post extubation and passed swallow eval. Restarted diet.
-Continue metoprolol. As outpatient can consider restarting Entresto, Aldactone and also consider SGLT2 inhibitor. Patient follow-up for further management.
-Appreciate cardiology recs
#Abnormal troponin likely nonischemic myocardial injury multifactorial in the setting of respiratory failure, sepsis, shock, urgency on admission
Hypertensive emergency, resolved.
-SBP 200's initially in ER
-Restarted on Lasix and Toprol
-Monitor blood pressure and creatinine and can consider restarting Entresto and Aldactone as an outpatient
#KODAK likely secondary in setting of prerenal versus ATN with blood pressure fluctuation
-Monitor creatinine with diuresis now. Creatinine stable.
# Shock likely septic E. coli pneumonia-poa
No SOB, no cough
-Echocardiogram as above
-Flu negative. COVID-negative
- Negative blood cultures
-Pro-Alberto was low. Tracheal aspirate positive for E. coli pansensitive.
-Vancomycin, Doxy and cefepime discontinued. Switched to ceftriaxone day #5. Changed dose 2 gm for PNA TX. and switch to p.o. antibiotics on discharge.
-Leukocytosis resolved.
Hyperglycemia
-likely stress response, no hx diabetes
-F/U A1c at 5.8
Former smoker
-Monitor.
Suspected levophed extravasation
-s/p phentolamine
-Wound care eval
Subclinical hypothyroidism likely in the setting of acute illness
-should be repeated when not in acute illness
CAD
-non-obstructive by cath 2022
-[employer] asa/statin
Thrombocytosis likely secondary to sepsis
Continue to trend
PUD s/p Billroth II procedure
- Protonix
DVT PPx lovenox subQ
FULL CODE
PT/OT -Home health.
More than 30 minutes spent in discharge including
Final examination of the patient
Summarizing hospital stay
Instructions for continuing care to all relevant caregivers
Preparation of discharge records, prescriptions, and referral forms
Total time spent (in minutes): 45
Anticipated Discharge: Today
Subjective/Interval History
-
Date of Service: January 04, 2024
On room air
no complaints
Denies chest pain shortness of breath
Tolerating diet
Objective Data
-
Labs:
Laboratory Results
01/04/24
04:19
WBC 7.6
Hgb 8.7 L
Hct 28.5 L
Plt Count 434 H
Sodium 140
Potassium 4.4
Chloride 107
Carbon Dioxide 25
BUN 32 H
Creatinine 0.6
Glucose 91
Calcium 9.8
Vital Signs:
Vital Signs
Temp Pulse Resp BP Pulse Ox
98.1 F 73 16 138/84 92
01/04/24 11:10 01/04/24 11:10 01/04/24 11:10 01/04/24 11:10 01/04/24 11:10
I&O
01/03/24 01/04/24 01/05/24
06:59 06:59 06:59
Intake Total 640 / 640 840 / 840
Output Total 775 / 775
Balance -135 / -135 840 / 840
[2024-01-04] MEDS: STERILE WATER FOR INJECTION 20 ML IV (12:40)
[2024-01-04] MEDS: ROCEPHIN 2000 MG IV (12:40)
--- NOTE | 2024-01-04 12:54 | W.DCSUMMARY ---
Discharge Summary
Discharge Data
Date of Admission: 12/30/23
Date of Discharge: 01/04/24
-
Pending Results: No
Hospital Course
73 female who is presenting to the hospital with shortness of breath. Patient upon admission was found to have a acute pulmonary edema and hypertension emergency. Patient initially was on BiPAP and subsequently was intubated and mechanically
ventilated. Patient was admitted to medical ICU. Once in the ICU patient spiked fever and she was started on broad-spectrum antibiotics. Patient blood pressure trending down was required Levophed administration. Diuretics was further held.
Cardiology and mutual fund analyst consulted. Patient blood pressure stabilized. Patient was able to be weaned off ventilation and was extubated on nasal cannula. Patient initially was started on broad-spectrum antibiotic with Vanco and Doxy and
cefepime. Patient tracheal aspirate for E. coli pneumonia and antibiotics was narrowed to ceftriaxone and switch to Augmentin on discharge. Patient was weaned off to room air completely. Patient did not qualify for home oxygenation. Patient
underwent echocardiogram ejection fraction of 40%. Diuresis was held. There was also suspicion of Levophed extravasation s/p phentolamine. Patient with soft blood pressure and further goal-directed medical therapy was not feasible. Entresto and
Aldactone was held and stopped and outpatient will need to follow-up outpatient with cardiology for further management. Patient was eval by PT and OT and be discharged home with VN.
Discharge Plan
-
Patient Disposition: Home with Home Care
Discharge Diagnosis/Procedures: Acute hypoxic respiratory failure status post mechanical ventilation and intubation s/p extubation
Acute pulmonary edema
Acute on chronic systolic heart exacerbation
Nonischemic myocardial injury
Hypertension emergency
Acute kidney injury
Septic shock secondary to E. coli pneumonia
Condition: Fair
Diet: 2 Gram Sodium and Restrict fluids to 48 oz
Activity: With assistance and As tolerated
Driving Restrictions: Not until seen by your Dr
Blood Work: Thyroid function testing in 4 to 5 weeks via primary doctor
Other Services: VN
Instructions: *CBC Heart Failure Instructions
Referrals:
Chandan Harding MD [Active] - in two to three weeks (Call to make appointment)
NONE,* [Family Provider] - in less than 1 week
Additional Discharge Medication Instructions: Entresto and Aldactone was discontinued due to hypotension.
Prescriptions:
New
polyethylene glycol 3350 [HealthyLax] 17 gram Powder In Packet
17 g PO DAILY 30 Days Qty: 30 0RF
metoprolol succinate 25 mg Tablet Extended Release 24 Hr
25 mg PO BID 30 Days Qty: 60 0RF
amoxicillin-pot clavulanate 875-125 mg tablet
1 tab PO Q12H Qty: 8 0RF
Continued
pantoprazole 40 MG tablet,delayed release (DR/EC)
40 mg PO DAILY
aspirin 81 mg Tablet,Delayed Release (Dr/Ec)
81 mg PO DAILY
cholecalciferol (vitamin D3) 25 mcg (1,000 unit) Tablet
25 mcg PO DAILY
ferrous sulfate 142 mg (45 mg iron) Tablet Extended Release
142 mg PO DAILY
cyanocobalamin (vitamin B-12) 2,000 mcg Tablet
2,000 mcg PO DAILY
pregabalin 25 mg Capsule
50 mg PO BID
Patient Comments:
12/29/2023: last filled 10/15/23, 90 tabs for 30 days from [facility]
atorvastatin 20 mg tablet
20 mg PO DAILY
Discontinued
Entresto 24-26 mg Tablet
1 tab PO BID
metoprolol succinate 50 mg Tablet Extended Release 24 Hr
50 mg PO DAILY Qty: 30 3RF
spironolactone 50 mg Tablet
50 mg PO DAILY Qty: 30 2RF
Discharge Orders:
Discharge Patient (As Directed); Ordered 01/04/24
Ordered By: Natalio Garza
Discharge Date and Time
Print Language: TURKISH
[2024-01-04 13:07] VITALS: BP 159/83; PULSE 80; O2SAT 93
[2024-01-04 15:22] VITALS: BP 146/67
--- NOTE | 2024-01-06 08:40 | W.HF.CON ---
Heart Failure
- LV Function
Left ventricular function study result: LV Ejection fraction >35% - 40%
Ejection Fraction Percentage: 40
- ARNI
Patient already on ARNI: No
Heart Failure ARNI Contraindication: Acute Renal Failure, Hypotension
- ACEI/ARB
Patient already on ACEI/ARB: No
Heart Failure ACEI/ARB Contraindication: Acute Renal Failure, Hypotension
- Beta Teagan
Patient already on Evidence Based Beta Teagan: Yes
- Mineralocorticord Receptor Antagonist
Patient already on MRA: No
Heart Failure MRA Contraindication: Acute Renal Insufficiency, Hypotension
- SGLT-2 Inhibitor
Patient already on SGLT-2 Inhibitor: No
Heart Failure SGLT-2 Inhibitor Contraindication: Patient Refusal (UTI)
- NYHA CHF Classification
NYHA CHF Classification Level: Class III - Symptoms w/ min exertion, interferes w/ nml daily activity
- ACC/AHA Stage
ACC/AHA Stage: Stage C: Symptomatic Heart Failure
== END 2024-01-04 16:12 | disposition home health service (06) | DRG 871 ==
LOC: 3 WEST ACU 01:22
PROVIDERS: Internal Medicine; Nurse Practitioner Primary Care; ADMITTING PHYSICIAN Student in an Organized Health Care Education/Training Program; ATTENDING PHYSICIAN Hospitalist; CONSULT PHYSICIAN Internal Medicine; EMERGENCY PHYSICIAN Student in an Organized Health Care Education/Training Program; OTHER PHYSICIAN Internal Medicine Critical Care Medicine
PROC: 5A1945Z Respiratory Ventilation, 24-96 Consecutive Hours (ICD-10-PCS; 2023-12-29)
DX: A41.51 Sepsis due to Escherichia coli [E. coli] (principal); I50.23 Acute on chronic systolic (congestive) heart failure; R65.21 Severe sepsis with septic shock; J96.01 Acute respiratory failure with hypoxia; J69.0 Pneumonitis due to inhalation of food and vomit; N17.9 Acute kidney failure, unspecified; I5A Non-ischemic myocardial injury (non-traumatic); I16.1 Hypertensive emergency; R64 Cachexia; T80.818A Extravasation of other vesicant agent, initial encounter; I47.20 Ventricular tachycardia, unspecified; Z11.52 Encounter for screening for COVID-19; F17.200 Nicotine dependence, unspecified, uncomplicated; I11.0 Hypertensive heart disease with heart failure; I25.10 Atherosclerotic heart disease of native coronary artery without angina pectoris
CPT/HCPCS: 36600; 71045; 80048; 80053; 80061; 80202; 81003; 81015; 82248; 82330; 82805; 82962; 83036; 83605; 83735; 83880; 84132; 84145; 84302; 84439; 84443; 84478; 84484; 85025; 85027; 85610; 85730; 87040; 87070; 87077; 87086; 87186; 87205; 87502; 87811; 92526; 92610; 93005; 93306; 94002; 94640; 94660; 94761; 96374; 97116; 97163; 97167; 99291; J2760

== ENCOUNTER 2024-05-11 11:44 | Inpatient (IN) | payer OTHER, SELFPAY ==
[2024-05-11] VITALS (70 sets, daily range): BP systolic 103–210; BP diastolic 53–120; PULSE 2–116; BMI 16.7
[2024-05-11] MEDS: NITROGLYCERIN PREMIX 250 IV (09:20)
[2024-05-11] MEDS: LASIX 60 MG IV (09:25)
--- NOTE | 2024-05-11 09:36 | PHANOTE ---
med rec note- as of ecw 04/14/24 plain was to restart Entresto bid when patient blood pressure improved
--- NOTE | 2024-05-11 09:40 | ED.GENMED ---
History of Present Illness
General
Chief Complaint: Breathing Problem
Source: patient and family
Exam Limitations: none
Time Seen by Provider: 05/11/24 09:15
Nursing documentation reviewed up to this point in time: agreed with
History of Present Illness
History of Present Illness:
Patient with history of COPD, recent intubation in December 2023 secondary to flash pulm edema presents to ED secondary to recurrent sudden onset of shortness of breath, shortly upon waking up this morning. Per spouse, patient woke up at her baseline
health without any difficulties, when her symptoms started. Denies recent illness. Denies recent change in medications or diet. Upon arrival, patient is found to be in acute respiratory distress, and unable to provide any further information.
Past History
Past History
ED Past Medical History: CAD, GERD, HTN, Hypercholesterolemia and Other (Iron deficiency anemia, peptic ulcer disease)
ED Past Surgical History: Cholecystectomy and Other (Partial gastrectomy)
Social History
Tobacco: Smoker
Alcohol: None
Drug: None
Personal:
Living: with family
Review of Systems
Review of Systems
Allergies reviewed?: Yes
Unable to obtain full review of systems at this time due to: due to acuity
All Other Systems: Not applicable
Phy Exam
Physical Exam
Physical Exam:
Physical Exam
General: moderate respiratory distress, acutely ill. cachetic appearing
Head: nc/at. eomi
Neck: supple. no meningeal signs.
Heart: tachcardic, no murmur. equal radial pulses.
Lungs: moderate respiratory distress. crackles bilaterally. moderate use of intercostal muscles
Abdomen: normal bowel sounds. not tender.
Neuro: alert and oriented. no focal neurological deficits
Skin: no rash
Psychiatric: well kept. interactive and cooperative
Extremities: no edema. no calf tenderness.
Scores
Heart Failure Risk
Heart Failure Risk Score: Yes
History of Stroke or TIA: No
History of intubation for respiratory distress: Yes
Heart rate on ED arrival >/= 110: Yes
SaO2 <90% on arrival on room air: Yes
HR >/=110 during 3min walk test (or too ill to perform test): Yes
ECG has acute ischemic changes: No
Urea >/=12mmol/L (BUN 33.6mg/dL): No
Serum CO2>/=35mmol/L: No
Troponin I or T elevated to DE Level (0.4mg/dL): No
NT-proBNP >/=5,000ng/L (5,000pg/ml): Yes
HF Risk Score: 6
Admission Status: VERY HIGH RISK 55.3% Consider admission to hospital
Course
Orders/Labs/Results
Orders:
Orders
05/11/24 09:18
CR Chest Portable - 1 View Urgent
Comment:
Reason For Exam: sob
Reason Study Needs to be Portable: Patient Unstable
05/11/24 09:19
Electrocardiogram (*1) Urgent
Reason for Study: Shortness of Breath
EKG- Treatment ONCE
05/11/24 09:20
Nitroglycerin 100 mg/250 ml [Nitroglycerin Premix] 100 mg in 250 ml IV PER PROTOCOL
Initial dose in mcg/min, then titrate:: 200
Titrate to keep:: MAP 70-100 mmHg
Titrate by mcg/min:: 5 mcg/min, may increase by 10 mcg/min if dose > 20 mcg/min
Frequency of titrations (minutes):: every 3-5 minutes
Maximum dose in mcg/min:: 200
Begin to taper infusion when:: Remained at goal for 2hrs
Taper by mcg/min:: 5 mcg/min
Frequency of taper (minutes) if patient maintains goal:: 30
Taper to off?: Yes
If infusion off & no longer maintaining goal:: Contact Provider
05/11/24 09:21
Furosemide [Lasix] 100 mg .ROUTE .STK-MED ONE
Nitroglycerin 100 mg/250 ml [Nitroglycerin Premix] 100 mg in 250 ml .ROUTE .STK-MED
05/11/24 09:25
Furosemide [Lasix] 60 mg IV NOW STA
05/11/24 09:36
Complete Blood Count/With Diff Urgent
Comprehensive Metabolic Panel Urgent
Magnesium Urgent
NT-proBNP Urgent
Troponin I Urgent
Ipratropium/Albuterol Sulfate [Duoneb] 3 ml INH R NOW STA
Bipap [RESP] Urgent
Patient to use own unit?: No
Inspiratory Pressure (cm H2O): 16
Expiratory Pressure (cm H2O): 6
05/11/24 09:54
Dias Placement- Treatment ONCE
Reason for insertion: I&O's Critical Care
05/11/24 10:03
Dexamethasone Sod Phosphate [Decadron] 10 mg IV NOW STA
05/11/24 10:18
COVID-19 Antigen Urgent
Source: Nasal Swab
Urinalysis Reflex To Culture Urgent
Date Specimen was Collected: 05/11/24
Time Specimen was Collected: 10:15
Urine Microscopic Reflex Cult Urgent
05/11/24 10:34
Arterial Blood Gas Urgent
%Oxygen/Room Air: 90
05/11/24 11:18
CARDIOLOGY CONSULT Routine
Consulting Provider: Nick Shrestha
Was physician already notified: Yes
05/11/24 11:19
Admit/Transfer Patient As Directed
Co-Sign Provider:
Level of Care: Inpatient admission
Assign to:: IMU- Intermediate Care
Physician / Group: montana corado
Diagnosis: resp failure, pulm edema
Reason for Hospitalization: resp failure, pulm edema
Expected length of stay greater than two midnights?: Yes
ELOS- Estimated Length of Stay in days: 3
I certify the patient meets the requirements for IP care: Yes
PRN Pain Medication Management As Directed
May give lesser potent ordered pain med per pt: Yes
preference::
Protocol:: Medication orders for pain may be administered in a
manner that supports deferring to patient preference
when the pt is:
- Requesting an ordered lesser potent pain medication.
Least to most potent pain medications are defined
as: acetaminophen < NSAID < tramadol < opioids
(morphine, oxycodone, hydromorphone).
- Requesting a lesser dose of the same medication IF
ORDERED.
- Requesting a less intrusive route of administration
if both routes are prescribed by the provider (PO <
IV).
05/11/24 11:22
Code Status As Directed
Resuscitation Status: Full Code
Abnormal Lab Results
05/11/24 05/11/24 05/11/24
09:36 10:18 10:34
WBC 20.3 H 10^3/uL
(4.8-10.8)
Hgb 10.2 L g/dL
(12.0-16.0)
Hct 36.8 L %
(37.0-47.0)
MCV 72.9 L fL
(81.0-99.0)
MCH 20.2 L pg
(27.0-31.0)
MCHC 27.7 L g/dL
(33.0-37.0)
RDW 20.0 H %
(11.5-14.5)
Plt Count 958 H 10^3/uL
(130-400)
Abs Immat Gran (auto) 0.2 H 10^3/uL
(0-0.05)
Absolute Neuts (auto) 14.3 H 10^3/uL
(1.4-6.5)
Absolute Lymphs (auto) 4.0 H 10^3/uL
(1.2-3.4)
Absolute Monos (auto) 1.3 H 10^3/uL
(0.1-0.6)
Immature Gran % 0.7 H %
(0-0.5)
Lymphocytes % 19.8 L %
(20.5-51.1)
pCO2 42 H mmHg
(32-35)
pO2 112 H mmHg
(83-108)
ABG O2 Sat (Measured) 99.1 H %
(94-98)
Sodium 146 H mmol/L
(135-145)
Carbon Dioxide 21 L mmol/L
(22-30)
Glucose 201 H mg/dl
(70-99)
AST 122 H U/L
(14-36)
ALT 41 H U/L
(0-35)
Alkaline Phosphatase 247 H U/L
(38-126)
Ur Occult Blood Reflex 1+ A
(Negative)
Urine RBC 21-25 A /HPF
(0-2)
Urine Bacteria (Reflex) Few A
(Negative)
Urine Glucose Trace A
(Negative)
Urine Albumin (Reflex) 2+ A
(Neg - Trace)
05/11/24 09:36
05/11/24 09:36
Vital Signs
Initial and Last Documented VS:
Initial Vital Signs
Pulse Resp BP
136 20 203/120
05/11/24 09:13 05/11/24 09:13 05/11/24 09:13
Last Documented Vital Signs
Pulse Resp BP Pulse Ox
84 18 123/68 98
05/11/24 14:00 05/11/24 14:00 05/11/24 14:00 05/11/24 14:00
MDM/Problems Addressed
MDM/Problems Addressed:
History and exam consistent with what appears to be recurrent flash pulmonary edema. Patient presents in severe respiratory distress, hypertensive, tachycardic, and unable to verbalize due to shortness of breath. However, patient is agreeable to
intubation, if her symptoms worsen. Patient started immediately on Lasix, nitroglycerin infusion, along with BiPAP. Dias catheter inserted.
Patient also given 400 mcg of IV push every 5 minutes x 5.
After treatment, patient with significant improvement symptoms.
Critical care statement: A total of 40 minutes of critical care time was provided for this patient. This includes management of unstable vital signs, evaluation of the patient at bedside, reviewing the patient's pertinent medical records, review of
old EKGs and review of pertinent medical records. This time with separate from time utilized to perform the aforementioned documented procedures
*EKG
Interpreted by ED Provider?: Yes
EKG Intrepretation Date: 05/11/24
Heart Rate: 115
Rate: tachycardiac
Rhythm: sinus
[place]: normal axis
QRS Pattern: left bundle branch block (chronic)
*Critical Care Note
Total Time (30-74mins, 75-104mins- exclusive of procedures): 40 min
ED Attending Note
-
Portions of this chart may have been created with voice recognition software.� Occasional wrong word or��sound alike� substitutions may have occurred due to the inherent limitations of voice recognition software.
Discharge Plan
Departure
Patient Disposition: Admit
Date of Disposition: 05/11/24
Time of Disposition: 10:44
Admit to: IMU
Presentation/result/management discussed w/ accepting MD/DO: Hospitalist
Discharge Problem:
Acute respiratory distress, Pulmonary edema, COPD exacerbation
Interventions
Interventions:
*Risk Screen - Suicide Last Done: 05/11/24 09:18
*General Assessment Last Done: 05/11/24 09:18
*Neglect/Abuse Screening Last Done: 05/11/24 09:18
ED- Fall Risk Assessment Last Done: 09/11/24 09:18
*ED COVID-19 Vaccine History Last Done: 05/11/24 09:18
ED- Cardiac Assessment Last Done: 05/11/24 09:18
ED- Pulmonary Assessment Last Done: 05/11/24 11:41
[2024-05-11] MEDS: DUONEB 3 ML INH (09:44)
[2024-05-11 10:04] LABS: % Basophils 0.4 % (0-2); % Eosinophils 1.8 % (0-6); % Immature Granulocytes 0.7 % (0-0.5); % Lymphocytes 19.8 % (20.5-51.1); % Monocytes 6.6 % (1.7-9.3); % Neutrophils 70.7 % (42.2-75.2); Absolute Basophils 0.1 10^3/uL (0-0.2); Absolute Eosinophils 0.4 10^3/uL (0-0.7); Absolute Immature Granulocytes 0.2 10^3/uL (0-0.05); Absolute Monocytes 1.3 10^3/uL (0.1-0.6); Absolute Neutrophils 14.3 10^3/uL (1.4-6.5); Hematocrit 36.8 % (37.0-47.0); Hemoglobin 10.2 g/dL (12.0-16.0); Mean Corp Hgb Conc. 27.7 g/dL (33.0-37.0); Mean Corpuscular Hgb 20.2 pg (27.0-31.0); Mean Corpuscular Volume 72.9 fL (81.0-99.0); Mean Platelet Volume 10.2 fL (7.4-10.4); Nucleated Red Blood Cells % 0 %; Platelet Count 958 10^3/uL (130-400); Red Blood Cell Count 5.05 10^6/uL (4.20-5.40); White Blood Cell Count 20.3 10^3/uL (4.8-10.8)
[2024-05-11] MEDS: DECADRON 10 MG IV (10:06)
[2024-05-11 10:12] LABS: ALT (SGPT) 41 U/L (0-35); AST (SGOT) 122 U/L (14-36); Albumin 3.6 g/dl (3.5-5.0); Alkaline Phosphatase 247 U/L (38-126); Blood Urea Nitrogen 11 mg/dl (7-17); Calcium 9.2 mg/dl (8.4-10.2); Carbon Dioxide 21 mmol/L (22-30); Chloride 103 mmol/L (98-107); Estimated Creatinine Clearance 52 ml/min; Glucose 201 mg/dl (70-99); Magnesium 1.9 mg/dl (1.6-2.3); Potassium 3.9 mmol/L (3.5-5.1); Sodium 146 mmol/L (135-145); Total Bilirubin 0.6 mg/dl (0.2-1.3); Total Protein 6.8 g/dl (6.3-8.2); eGFR > 60.00
[2024-05-11 10:19] LABS: NT-proBNP 14100 pg/ml; Troponin I 0.023 ng/ml
[2024-05-11 10:39] LABS: Urine Albumin 2+ (Neg - Trace); Urine Bilirubin Negative (Negative); Urine Character Clear (Clear); Urine Color Yellow; Urine Glucose Trace (Negative); Urine Ketone Negative (Negative); Urine Leukocyte Negative (Negative); Urine Nitrite Negative (Negative); Urine Occult Blood 1+ (Negative); Urine Specific Gravity 1.015 (<1.030); Urine Urobilinogen Negative (Neg - 1+); Urine pH 6.5 (5.0-9.0)
[2024-05-11 10:40] LABS: Anisocytosis 2+; Hypochromasia 2+; Normal RBC Morphology No
[2024-05-11 10:41] LABS: Ovalocytes 1+; Tear Drop Red Blood Cells 1+
[2024-05-11 10:42] LABS: Poikilocytosis 1+
[2024-05-11 10:43] LABS: Microcytosis 1+
[2024-05-11 10:47] LABS: Urine Bacteria Few (Negative); Urine Red Blood Cell 21-25 /HPF (0-2)
[2024-05-11 10:49] LABS: B.E. -0.4 mmol/L; HCO3 24.8 mmol/L (21-28); O2 Saturation % 99.1 % (94-98); PCO2 42 mmHg (32-35); PO2 112 mmHg (83-108); pH 7.38 (7.35-7.45)
--- NOTE | 2024-05-11 10:59 | HPS.HSE ---
Family Physician
-
Family Physician: Anitra Aguilera
Chief Complaint
-
Shortness of breath
History of Present Illness
73-year-old female with a past medical history of NICM EF 40-45%, non-obstructive CAD (60% LCX cath 2022), hypertension, LBBB, pSVT, hyperlipidemia, PUD s/p stomach resection, and iron deficiency anemia presents with acute onset of shortness of
breath this morning. Patient states she woke up short of breath this morning, and it has progressively worsened so she came to the emergency room. She denies fever, denies coughing. No chest pain, no nausea, no vomiting. No abdominal pain. No
dysuria. No sick contacts. Patient had a recent admission on 12/30/2023 for a similar presentation, requiring intubation. Currently, she is on BiPAP and a nitroglycerin drip.
Medical History
Past Medical History
Past Medical History: Reports Other (PUD, Essential HTN, HLD, CAD, LBBB, nonischemic cardiomyopathy, flash pulmonary edema, iron deficiency anemia)
Past Surgical History: Reports Cholecystectomy and Other (stomach resection)
Social History
Tobacco: Former Smoker
Alcohol: None
Drug: None
Personal:
Living: With Family
Employment: Retired
Family History
Family History: Not pertinent
Allergies / Home Medications
Allergies reflects when Allergies were last updated in [facility].
Home Medications with original date entered in [facility]
Allergy/Medication List:
Allergies
Allergy/AdvReac Type Severity Reaction Status Date / Time
No Known Allergies Allergy Verified 12/30/23 00:42
Home Medications Table - record
�Medication �Instructions �Recorded �Confirmed
pantoprazole 40 mg tablet,delayed 40 mg PO DAILY Gastrointestinal 01/23/23 05/11/24
release Issue
aspirin 81 mg tablet,delayed 81 mg PO DAILY Heart 10/08/23 05/11/24
release Disease/Condition
atorvastatin 20 mg tablet 20 mg PO DAILY High Cholesterol 10/08/23 05/11/24
ferrous sulfate 142 mg (45 mg 142 mg PO DAILY Supplement 10/08/23 05/11/24
iron) tablet,extended release
pregabalin 25 mg capsule 50 mg PO BID 10/08/23 05/11/24
metoprolol succinate 25 mg 25 mg PO BID 30 days #60 tabs 01/04/24 05/11/24
tablet,extended release 24 hr
polyethylene glycol 3350 17 gram 17 g PO DAILYPRN PRN constipation 05/11/24 05/11/24
oral powder packet (HealthyLax)
sacubitril 24 mg-valsartan 26 mg 1 tab PO BID 05/11/24 05/11/24
tablet (Entresto)
spironolactone 25 mg tablet 12.5 mg PO DAILY 05/11/24 05/11/24
Review of Systems
-
A 12 point ROS was completed and negative except as noted: Yes
Physical Exam
Vital Signs
Vital Signs
Pulse Resp BP Pulse Ox
100 19 119/72 99
05/11/24 10:45 05/11/24 10:45 05/11/24 10:40 05/11/24 10:45
Physical Exam
General: Respiratory Distress
HEENT: NormoCephalic, Anicteric and Moist mucous membranes
Respiratory: Crackles
Cardiac: Tachycardia
GI: Soft, Non Tender, Non Distended and Normal Bowel Sounds
Musculoskeletal: No Clubbing, No Cyanosis and No Edema
Neuro: Awake, Alert and Oriented
Psych: Calm
Laboratory Results
-
05/11/24 09:36
05/11/24 09:36
Laboratory Results
pH 7.38 (7.35-7.45) 05/11/24 10:34
pCO2 42 mmHg (32-35) H 05/11/24 10:34
pO2 112 mmHg (83-108) H 05/11/24 10:34
HCO3 24.8 mmol/L (21-28) 05/11/24 10:34
Total Bilirubin 0.6 mg/dl (0.2-1.3) 05/11/24 09:36
AST 122 U/L (14-36) H 05/11/24 09:36
ALT 41 U/L (0-35) H 05/11/24 09:36
Alkaline Phosphatase 247 U/L (38-126) H 05/11/24 09:36
Troponin I 0.023 ng/ml 05/11/24 09:36
Impression/Plan
-
73-year-old female with a past medical history of NICM EF 40-45%, non-obstructive CAD (60% LCX cath 2022), hypertension, LBBB, pSVT, hyperlipidemia, PUD s/p stomach resection, and iron deficiency anemia presents with acute onset of shortness of
breath this morning. Patient states she woke up short of breath this morning, and it has progressively worsened so she came to the emergency room. She denies fever, denies coughing. No chest pain, no nausea, no vomiting. No abdominal pain. No
dysuria. No sick contacts. Patient had a recent admission on 12/30/2023 for a similar presentation, requiring intubation. Currently, she is on BiPAP and a nitroglycerin drip.
#Acute hypoxic respiratory failure
#Acute flash pulmonary edema
Currently on BiPAP and nitro drip, wean as tolerated
Was given Lasix 60 mg IV x 1 in the ER, consult cardiology
Monitor creatinine, monitor daily weights
#Hypertensive emergency
Blood pressure peaked at 210/112 in the ER
Now normalized with nitroglycerin drip, wean as tolerated
Continue metoprolol, Entresto, spironolactone
#Systemic inflammatory response syndrome
#Leukocytosis
#Tachycardia
UA not indicative of infection
Check procalcitonin in the morning
#Thrombocytosis
Platelets are 958, consult hematology
#Hypernatremia
Sodium 146, will monitor with diuresis
#Mild transaminitis
Monitor
#Peptic ulcer disease
Continue PPI
#Iron deficiency anemia
Continue ferrous sulfate
#Hyperlipidemia
Continue statin
DVT prophylaxis�subcu Lovenox
Full code
Total time spent to see the patient on the floor, examine the patient, review data and lab results, discuss treatment plan with patient, nursing staff around 78 minutes.
[2024-05-11 11:03] LABS: COVID-19 Antigen Negative (Negative)
--- NOTE | 2024-05-11 12:31 | CON.CAR ---
Addendum entered and electronically signed by Nick Shrestha MD 05/11/24 13:56:
I personally performed a history and physical exam of the patient and discussed management with the resident. I reviewed the resident's note and agree with the documented findings and plan of care.
Briefly, she has been feeling well until this morning she had sudden onset sob. She has been compliant with medication, and chf plan per her report. Otherwise, no cp. Her weight has been stable. She had a recent admission with similar
presentation, but didn't tolerate lasix. She reports she is much more comfortable now than admission. On exam, she has a regular respiratory rate on BiPAP mask, JVP slightly elevated at 12 cm of water, bibasilar rales appreciated, regular rate and
rhythm with a normal S1-S2, extremities are warm well-perfused on clubbing cyanosis or edema. EKG showed sinus rhythm with left bundle branch block.chest x-ray image shows cephalization of pulmonary vasculature and increased interstitial markings
consistent with pulmonary edema.
Overall she is a 73-year-old female with a history of nonischemic cardiomyopathy last EF 40%, nonobstructive CAD seen on cath in 2022 with a 60% left circumflex, hypertension, left bundle branch block, underweight which is chronic since a Billroth
II procedure in the setting of PUD, PSVT and iron deficiency anemia now with acute pulmonary edema. Patient has improved with nitroglycerin drip and BiPAP. We will wean her off the BiPAP as able. She has received a dose of Lasix. We will
continue to treat this although underlying etiology is unclear. She did present with marked hypertension consistent with a hypertensive emergency. This may be the etiology of her acute pulmonary edema. However, would like to rule out ischemia.
Will arrange for cardiac catheterization. Right and left heart cath would be helpful. If these were normal, would recommend renal artery angiography to rule out renal artery stenosis as a source of her hypertension. Otherwise further secondary
workup can be pursued as an outpatient. Will obtain a focused echo to ensure no changes.
Will follow.
Original Note:
Consultation
Consultation Request
Date/Time Consultation Requested: 05/11/2024
Date/Time Consultation Performed: 05/11/2024
Requesting Provider: Dr. Thomas Null
Performing Provider: Dr. Nick Shrestha
Reason for Consultation: Flash pulmonary edema
Medical History
-
Chief Complaint: Shortness of breath
History of Present Illness:
73 y/o female with NICM EF 40%, non-obstructive CAD (60% LCX cath 2022), hypertension, LBBB, pSVT, PUD s/p Billroth II procedure, iron deficiency anemia who presents to the ER complaining of shortness of breath that began this morning when she woke
up. History gotten from her . states Shortness of breath worsened as the day progressed. Before today, she was not complaining of any symptoms and was in her normal baseline state. Patient denies chest pain, palpitations.
called EMS and she was brought into the ER. She was placed on BiPAP. Vitals on presentation blood pressure was 203/120, Pulse in the 90s, O2 sats 96% on BiPAP. She was administered IV Lasix and IV nitro with improvement of Blood pressure readings.
proBNP on presentation 14,100, initial troponin 0.023. Chest x-ray in the ER with moderate diffuse coarsening of interstitial markings throughout both lungs. COVID testing negative. EKG with sinus tachycardia, LBBB. At the time of this
consultation, she reports she is feeling much better on BiPAP.
Patient was recently admitted to [facility] in December 2023 for which she was intubated in the ER for respiratory distress.
Past Medical History
Past Medical History: Other (Hypertension, nonobstructive CAD, LBBB, iron deficiency anemia, PUD s/p Billroth II distal gastrectomy/proximal vagotomy)
Past Surgical History: Other (Cholecystectomy,Billroth II distal gastrectomy/proximal vagotomy for refractory/stricturing PUD ~ 30 years ago)
Social History
Tobacco: Former Smoker (Former smoker who quit 3 years ago, she smoked for 50 years)
Alcohol: None
Drug: None
Personal:
Living: With Family
Employment: Not Employed
Family History
Family History: CAD (CAD father)
Allergies / Home Medications
Allergy/AdvReac Type Severity Reaction Status Date / Time
No Known Allergies Allergy Verified 12/30/23 00:42
�Medication �Instructions �Recorded �Confirmed �Type
pantoprazole 40 mg tablet,delayed 40 mg PO DAILY Gastrointestinal 01/23/23 05/11/24 History
release Issue
aspirin 81 mg tablet,delayed 81 mg PO DAILY Heart 10/08/23 05/11/24 History
release Disease/Condition
atorvastatin 20 mg tablet 20 mg PO DAILY High Cholesterol 10/08/23 05/11/24 History
ferrous sulfate 142 mg (45 mg 142 mg PO DAILY Supplement 10/08/23 05/11/24 History
iron) tablet,extended release
pregabalin 25 mg capsule 50 mg PO BID 10/08/23 05/11/24 History
metoprolol succinate 25 mg 25 mg PO BID 30 days #60 tabs 01/04/24 05/11/24 Rx
tablet,extended release 24 hr
polyethylene glycol 3350 17 gram 17 g PO DAILYPRN PRN constipation 05/11/24 05/11/24 History
oral powder packet (HealthyLax)
sacubitril 24 mg-valsartan 26 mg 1 tab PO BID 05/11/24 05/11/24 History
tablet (Entresto)
spironolactone 25 mg tablet 12.5 mg PO DAILY 05/11/24 05/11/24 History
Review of Systems
-
History Source: Patient
Respiratory: Trouble Breathing
Cardiac: Other (See HPI)
Abdomen/GI: No Symptoms
Physical Exam
Vital Signs
Pulse Resp BP Pulse Ox
89 30 111/69 99
05/11/24 12:15 05/11/24 12:15 05/11/24 12:15 05/11/24 12:15
Lab Results
05/11/24 09:36
05/11/24 09:36
Troponin I 0.023 ng/ml 05/11/24 09:36
Hax-R-Sponapjkuip Pept 68873 pg/ml 05/11/24 09:36
Physical Exam
General: No Apparent Distress ( currently on BiPAP)
Respiratory: Wheezes, Crackles (Bibasilar) and Non Labored Respirations (On BiPAP)
Cardiac: S1/S2; Negative Peripheral Edema
GI: Soft, Non Tender and Non Distended
Musculoskeletal: No Edema
Neuro: Awake, Alert, Oriented and AO x 3
Psych: Calm
Impression / Plan
-
Impression/plan
Flash Pulmonary edema/HFmEF
Acute hypoxic respiratory insufficiency secondary to above
-Initiated on IV Lasix, IV nitro and BiPAP on presentation.
-Continue IV diuresis, wean off BiPAP
-Monitor renal function, Daily weights, I's and O's
-Check echocardiogram
-Assessment for coronary artery disease with cardiac catheterization
-Plan for catheterization, when off BiPAP Today
Hypertension
-Chronic, elevated on presentation, now improved on IV nitro, continue
-Will try to titrate blood pressure medications Including metoprolol, ARNI as indicated
-Workup for secondary causes of hypertension
CAD
-Remains stable, no angina
-on ASA, statin, BB as outpatient
Leukocytosis
Iron deficiency anemia- Stable
LBBB-chronic
[2024-05-11 16:00] LABS: ACT-LR - POC 181 Seconds (116-155)
[2024-05-11 16:10] LABS: ACT-LR - POC 208 Seconds (116-155)
--- NOTE | 2024-05-11 16:28 | ITS.CL.CATH ---
Grooming Salon Manager - Catheterization
Cardiac Catheterization
Procedure Report:
CARDIAC CATHETERIZATION REPORT
Date of Procedure: 05/11/2024
Referring: Katiana Shrestha M.D.
Indication: Flash pulmonary edema, hypertensive emergency, known coronary artery disease.
PROCEDURE:
1. Right heart catheterization.
2. Left heart catheterization.
3. Coronary angiography.
4. Abdominal aortography.
5. Successful IFR of the ostial circumflex.
6. Renal angiography.
ACCESS:
6 [place] right common femoral artery using a modified Seldinger technique with a micropuncture kit under ultrasound guidance.
3 [place] left common femoral artery using a modified Seldinger technique with a micropuncture kit under ultrasound guidance, abandoned.
5 [place] right antecubital vein.
CATHETERS:
1. 5 [place] balloon.
2. 5 [place] JL 4.
3. 5 [place] JR4.
4. 5 [place] straight pigtail.
5. 6 [place] JL 4 guiding catheter.
HEMODYNAMIC DATA
Weight (kg): 46.7
AO (s/d/x mmHg): 140/83/106
LV (s/x mmHg): 140/16
PCWP (a/v/x mmHg): 20/18/17
PA (s/d/x mmHg): 42/20/27
RV (s/x mmHg): 40/11
RA (a/v/x mmHg): 15//
SVC SvO2 (%): 60.0
PA SvO2 (%): 62.1
SaO2 (%): 95.5
Hbg (g/dL): 8.8
CO (L/min): 3.73
CI (L/min/m2): 2.47
TPG (mmHg): 10
PVR (Zavala Units): 2.68
SVR (dynes*seconds*cm^-5): 2037
AVO2 Diff (Volume %): 4.00
AV gradient (x, mmHg): None.
AV area (cm2): Normal.
LEFT VENTRICULOGRAPHY: Not performed.
ABDOMINAL AORTOGRAPHY: Performed in AP projection. There is mild suprarenal aortic dilation. There is no obvious atherosclerosis in the abdominal aorta. There is no evidence of abdominal branch vessel stenosis on limited evaluation.
RENAL ANGIOGRAPHY:
Right: Normal size vessel. There is no significant stenosis.
Left: Normal size vessel which bifurcates into an upper and lower branch. There is no significant stenosis.
ILEOFEMORAL ANGIOGRAPHY:
Right: There is a significant, 80+% stenosis in the proximal external iliac artery immediately after the takeoff of the internal iliac artery. There is a nodular, 50% lesion in the more distal external iliac.
Left: There is a 50% lesion in the distal external iliac artery with significant calcification. There is a 50-60% lesion in the common femoral vessel. Injection caused a retrograde dissection which immediately cleared.
CORONARY ANGIOGRAPHY
Dominance: Right.
Left Main: Normal size, trifurcating vessel. There is no coronary artery disease.
LAD: Normal size vessel giving rise to 2 significant diagonals. There are luminal irregularities throughout the LAD.
Ramus: Small to medium size, 1.5 mm vessel. There may be some mild ostial stenosis.
Circumflex: Large size, nondominant vessel that is essentially a large marginal supplying much of the lateral wall. There is a densely calcified, 60% lesion in the ostium of the vessel.
RCA: Large size, dominant vessel with a large posterolateral arcade supplying the majority of the inferolateral wall. There are minor luminal irregularities throughout the vessel.
INTERVENTIONS
1. Successful IFR of the 60% ostial circumflex lesion, demonstrating nonocclusive disease (IFR = 0.94).
Narrative:
The decision was made to perform physiologic testing. The diagnostic catheter was removed over a wire and exchanged for a(n) 6 [place] JL 4 guiding catheter. The guiding catheter was advanced into the ascending aorta and seated in the left main
coronary artery. Additional heparin was given to obtain an ACT greater than 250 seconds. An iFR wire was zeroed outside of the body, then inserted into the guiding sheath. The wire was advanced and the transducer was normalized just outside of the
guiding catheter tip. The wire was advanced into the distal circumflex. Three iFR measurements were taken. The lesion was determined to be nonocclusive (0.94).
Closure Device: Manual pressure for the right common femoral artery, left common femoral artery and right antecubital vein.
Radiation dose (mGy): 576.71
DAP (cm2.Gy): 53.8473
Fluoroscopy time (minutes): 13.5
Sedation time (minutes): 46
CONCLUSIONS:
1. Right dominant circulation with luminal irregularities in the entire coronary tree as well as a densely calcified, nonocclusive 60% lesion in the ostium of the circumflex (IFR = 0.94).
2. Mild suprarenal aortic dilation with no evidence of renal artery stenosis.
3. Significant PAD with an 80% stenosis in the right proximal external iliac artery and a mid 50% lesion in the more distal right external iliac artery, a 50% lesion in the distal left external iliac artery and a 50-60% lesion in the left common
femoral artery.
4. 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
RECOMMENDATIONS:
1. Expectant management after cardiac catheterization via right common femoral and right antecubital approach.
2. Limited weight bearing for one week.
3. Correlation of central aortic pressure and noninvasive blood pressure prior to sheath removal. I suspect that we have been chronically under treating her hypertension which is likely led to her episodes of flash pulmonary edema.
4. No role for percutaneous coronary intervention at this time.
5. Aggressive risk factor modification.
Copy to: Katiana Shrestha M.D., Isrrael Caba M.D., Anitra Aguilera D.O.
Bhavesh Goodman DO, FACC, FACP
[2024-05-11 16:57] LABS: ACT-LR - POC 163 Seconds (116-155)
[2024-05-11] MEDS: LOVENOX SC (18:31)
--- NOTE | 2024-05-11 18:47 | PTCARENOTE ---
Received patient from slab grinder at 17:30. SR on the monitor with BBB, HR in the 80s. R brachial cath site dressing CDI. L attempted femoral cath site CARLIN. R femoral cath site dressing CDI, no evidence of hematoma. Pt informed of activity restrictions
and expected ambulation time, pt verbalizes understanding. 97% on 4L nasal cannula. Dias in place with yellow urine. Oriented pt to room, call fajardo within reach.
[2024-05-11] MEDS: ENTRESTO 24 MG/26 MG 1 TAB PO (19:48)
[2024-05-11] MEDS: LYRICA 50 MG PO (19:48)
[2024-05-11] MEDS: TOPROL XL 25 MG PO (19:49)
[2024-05-12] VITALS (21 sets, daily range): BP systolic 125–151; BP diastolic 60–92; PULSE 73; BMI 16.1
--- NOTE | 2024-05-12 02:21 | PTCARENOTE ---
Rec'd pt. at change of shift AAOx3; VSS, NSR on the monitor. Right groin and right brachial site dressings CDI with no evidence of hematoma, distal pulses palpable. Left groin site CARLIN with no drainage/hematoma. Pt. denies any CP and does not
feel SOB, crackles present bilateral bases, pulse ox high 90's on 4L (able to titrate down to 2L so far with pulse ox staying in the mid 90's). Nitro gtt initially infusing at 20 mcg/min, able to titrate down to 5 mcg/min (last MAP 98, will titrate
cautiously). Dias catheter present and draining clear yellow urine; order rec'd from hospitalist SORTING MACHINE OPERATOR to keep for now (no order placed originally). Pt. currently resting quietly.
[2024-05-12 04:59] LABS: Hematocrit 25.6 % (37.0-47.0); Hemoglobin 7.7 g/dL (12.0-16.0); Mean Corp Hgb Conc. 30.1 g/dL (33.0-37.0); Mean Corpuscular Hgb 20.5 pg (27.0-31.0); Mean Corpuscular Volume 68.3 fL (81.0-99.0); Mean Platelet Volume 10.1 fL (7.4-10.4); Platelet Count 642 10^3/uL (130-400); Red Blood Cell Count 3.75 10^6/uL (4.20-5.40); Red Cell Dist. Width 18.6 % (11.5-14.5); White Blood Cell Count 13.2 10^3/uL (4.8-10.8)
[2024-05-12 05:02] LABS: ALT (SGPT) 30 U/L (0-35); AST (SGOT) 29 U/L (14-36); Albumin 2.9 g/dl (3.5-5.0); Alkaline Phosphatase 167 U/L (38-126); Blood Urea Nitrogen 18 mg/dl (7-17); Calcium 8.4 mg/dl (8.4-10.2); Carbon Dioxide 30 mmol/L (22-30); Chloride 102 mmol/L (98-107); Direct Bilirubin 0.2 mg/dl (0.0-0.4); Estimated Creatinine Clearance 50 ml/min; Glucose 108 mg/dl (70-99); HDL Cholesterol 37 mg/dl; LDL Cholesterol, Calculated 49 mg/dl; Sodium 142 mmol/L (135-145); Total Bilirubin 0.4 mg/dl (0.2-1.3); Total Cholesterol 102 mg/dl (50-199); Total Protein 5.6 g/dl (6.3-8.2); Triglyceride 82 mg/dl (10-149); Very Low Density Lipoprotein 16 mg/dl (0-30); eGFR > 60.00
--- NOTE | 2024-05-12 06:15 | W.PN.UPDATE ---
Update Note
Progress Note Update
-RN notified BANQUET WAITER/WAITRESS of lab results. K 3.3, repleted with KCL 40meq IVx1.
-hgb 7.7/25.6, platelets 642, stable vs, patient asymptomatic, no active bleeding, no hematoma, will check heme stool, will repeat labs in AM
-Procalcitonin elevated 5.10, WBC 13.2, chest xray 05/11 possible viral bronchiolitis, Covid neg, + Respiratory culture in december 2023, will order sputum culture, blood culture, flu swab, patient afebrile.
-May need ID consult
--- NOTE | 2024-05-12 06:15 | PTCARENOTE ---
Hospitalist CONSTRUCTION ECONOMIST Kezia notified hgb 7.7 (down from 10.2 yesterday). Femoral and brachial cath sites without any bleeding or hematoma, BP stable with MAP in the 90's, pt. is pain free. Also notified CONSTRUCTION ECONOMIST potassium 3.0. Per Kezia repeat CBC at
1000 and will order KCL supplements. Also procalcitonin 5.1. Heptamiba aware. Awaiting orders
[2024-05-12] MEDS: KCL 270 MEQ IV (07:07)
[2024-05-12] MEDS: ALDACTONE 12.5 MG PO (08:20)
[2024-05-12] MEDS: LIPITOR 20 MG PO (08:29)
[2024-05-12] MEDS: PROTONIX 40 MG PO (08:29)
[2024-05-12] MEDS: FEOSOL 325 MG PO (08:30)
[2024-05-12] MEDS: LYRICA 50 MG PO ×2 (08:30→20:09)
[2024-05-12] MEDS: ASPIR LOW (ENTERIC COATED) 81 MG PO (08:30)
[2024-05-12] MEDS: ENTRESTO 24 MG/26 MG 1 TAB PO ×2 (08:31→20:09)
[2024-05-12] MEDS: TOPROL XL 25 MG PO ×2 (08:31→20:09)
--- NOTE | 2024-05-12 09:12 | W.PN.CD ---
Today's Communication / Plan
-
-Acute anemia status-postcardiac catheterization yesterday; no groin hematoma, but significant left femoral bruit auscultated with palpable thrill.
-Will get bilateral renal ultrasounds.
-Will recheck CBC; if hemoglobin continues to decline, will need to obtain CT abdomen with IV contrast.
-No obstructive CAD on cardiac catheterization yesterday; external iliac retrograde dissection was noted related to procedure.
Impression / Plan
-
Impression/plan
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
Acute on chronic HFmrEF (40%)/hypertensive crisis (203/120 mmHg) with flash pulmonary edema:
-Blood pressure and volume status improved.
-Weaned off BiPAP.
-Discontinue nitroglycerin drip.
-Continue current doses of Toprol-XL, Entresto, and spironolactone.
Acute anemia status-postcardiac catheterization yesterday:
-No groin hematoma, but significant left femoral bruit auscultated with palpable thrill.
-Will get bilateral renal ultrasounds.
-Will recheck CBC; if hemoglobin continues to decline, will need to obtain CT abdomen with IV contrast.
Hypertension
-Currently controlled; continue current medications as above.
CAD
-No obstructive CAD on cardiac catheterization yesterday; external iliac retrograde dissection was noted related to procedure.
-Continue aspirin, atorvastatin, and Toprol-XL.
Leukocytosis -currently on droplet precautions; workup and management as per primary team.
LBBB-chronic.
Physical Exam
Vital Signs/Labs
Vital Signs
Temp Pulse Resp BP Pulse Ox
97.4 F 64 16 148/81 98
05/12/24 04:13 05/12/24 04:11 05/12/24 04:13 05/12/24 08:31 05/12/24 04:13
05/11/24 05/12/24 05/13/24
06:59 06:59 06:59
Actual Weight 45.2 kg
05/12/24 04:25
Magnesium 1.9 mg/dl (1.6-2.3) 05/11/24 09:36
Triglycerides 82 mg/dl (10-149) 05/12/24 04:25
LDL Cholesterol, Calc 49 mg/dl 05/12/24 04:25
VLDL Cholesterol, Calc 16 mg/dl (0-30) 05/12/24 04:25
HDL Cholesterol 37 mg/dl 05/12/24 04:25
05/11/24
09:36
Qqe-M-Ryoaajpajht Pept [id number]
LAB Results
05/11/24
09:36
Troponin I 0.023
Physical Exam
Constitutional: No acute distress and Comfortable
EENT: Anicteric
Cardiovascular: Rhythm & rate is regular, Pedal edema is absent, Systolic murmur absent and S1S2 is normal
Respiratory: Respiratory effort normal and Lungs clear to auscul.
GI: Soft
Neuro/Psych: AO x 3
Other: Cath Site (Lab left femoral bruit with palpable thrill; good bilateral femoral pulses)
Data Reviewed
-
Date of Service: May 12, 2024
Medical Decision Making: External Notes
EKG: Tracing Personally Visualized and interpreted (Telemetry: Sinus rhythm)
Labs: Labs Reviewed by me
--- NOTE | 2024-05-12 09:33 | W.PN.HOSP.TC ---
Today's Communication/Plan
-
see bold
Assessment / Plan
Assessment / Plan
73-year-old female with a past medical history of NICM EF 40-45%, non-obstructive CAD (60% LCX cath 2022), hypertension, LBBB, pSVT, hyperlipidemia, PUD s/p stomach resection, and iron deficiency anemia presents with acute onset of shortness of
breath this morning. Patient states she woke up short of breath this morning, and it has progressively worsened so she came to the emergency room. She denies fever, denies coughing. No chest pain, no nausea, no vomiting. No abdominal pain. No
dysuria. No sick contacts. Patient had a recent admission on 12/30/2023 for a similar presentation, requiring intubation. Currently, she is on BiPAP and a nitroglycerin drip.
#Acute hypoxic respiratory failure
#Acute flash pulmonary edema
Status post BiPAP and nitro drip, wean as tolerated
Appreciate cardiology input, cardiac catheterization 05/11 showed nonobstructive coronary artery disease, peripheral artery disease
Cardiology suspects we have been under treating her hypertension, which leads to intermittent flash pulmonary edema
Cardiology recommends workup for secondary hypertension with bilateral renal ultrasound
#Hypertensive emergency
Blood pressure peaked at 210/112 in the ER
Now normalized s/p nitroglycerin drip
Continue metoprolol, Entresto, spironolactone
Workup for secondary hypertension as above
#Systemic inflammatory response syndrome
#Leukocytosis
#Tachycardia
UA not indicative of infection
Procalcitonin elevated, started on Zosyn empirically
#Thrombocytosis
Appreciate hematology input, likely reactive
Previous MPN panel failed to show evidence mutations of myeloproliferative disorder
#Acute on chronic iron deficiency anemia
Groin ultrasound negative for hematoma
Continue ferrous sulfate, follow-up with hematology in the office for outpatient iron infusions prn
#Cachexia
Encourage oral intake, add protein supplement
#Hypokalemia
Replete as needed
#Hypernatremia
Resolved
#Mild transaminitis
Monitor
#Peptic ulcer disease
Continue PPI
#Hyperlipidemia
Continue statin
DVT prophylaxis�subcu Lovenox
Full code
Total time spent to see the patient on the floor, examine the patient, review data and lab results, discuss treatment plan with patient, nursing staff around 51 minutes.
Physical Exam
General: Cachectic appearing, no acute distress
HEENT: Normocephalic, Atraumatic, EOMI, MMM
Respiratory: Diminished breath sounds at the right lung base with faint basilar crackles
Cardiac: Normal S1/S2, Regular Rate and Rhythm
GI: Soft, Nontender, Nondistended, Normal Bowel Sounds
Extremities: No Clubbing, Cyanosis, or Edema
Neuro: Nonfocal/Grossly Intact
Psych: Calm, Cooperative
Anticipated Discharge: 24 - 48 hours
Subjective/Interval History
-
Date of Service: May 12, 2024
Patient reports shortness of breath has resolved. No chest pain, no fever, no vomiting. No dysuria.
Objective Data
-
Labs:
Laboratory Results
05/12/24 05/12/24
04:25 08:50
WBC 13.2 H Pending
Hgb 7.7 L D Pending
Hct 25.6 L Pending
Plt Count 642 H D Pending
Sodium 142
Potassium 3.0 L
Chloride 102
Carbon Dioxide 30
BUN 18 H
Creatinine 0.7
Glucose 108 H
Calcium 8.4
Total Bilirubin 0.4
AST 29
ALT 30
Alkaline Phosphatase 167 H
Vital Signs:
Vital Signs
Temp Pulse Resp BP Pulse Ox
97.4 F 64 16 148/81 98
05/12/24 04:13 05/12/24 04:11 05/12/24 04:13 05/12/24 08:31 05/12/24 04:13
I&O
05/11/24 05/12/24 05/13/24
06:59 06:59 06:59
Intake Total 240 / 240
Output Total 1175 / 1175
Balance -935 / -935
[2024-05-12 10:00] LABS: Hematocrit 28.9 % (37.0-47.0); Hemoglobin 8.5 g/dL (12.0-16.0); Mean Corp Hgb Conc. 29.4 g/dL (33.0-37.0); Mean Corpuscular Hgb 20.2 pg (27.0-31.0); Mean Corpuscular Volume 68.8 fL (81.0-99.0); Mean Platelet Volume 10.1 fL (7.4-10.4); Platelet Count 716 10^3/uL (130-400); Red Cell Dist. Width 19.1 % (11.5-14.5); White Blood Cell Count 13.7 10^3/uL (4.8-10.8)
--- NOTE | 2024-05-12 10:16 | CON.ONC ---
Impression
Impression
acute on chronic microcytic anemia
SANDI
Billroth II partial gastrectomy 2000
PUD
thrombocytosis, intermittent dating back to 2014. MPN panel 2015 negative in 2015.
NICM EF 40-45%
acute respiratory failure
HTN emergency
Plan
Plan
check iron studies, retic, monitor for bleeding- would replete iron stores with parenteral iron in the absence of infection if ferritin <100
transfuse prn Hgb <8g/dL or as needed for sxs anemia -defer to cardiology if diuretics are needed with transfusion
OP follow up with hematology upon discharge for anemia and likely reactive thrombocytosis - pt would like to follow up with Dr. Ndiaye
Patient History
History of Present Illness
75 yo F presented to with acute onset SOB 05/11/2024. She reports SOB upon waking yesterday that continued to worsen which prompted her to seek ER evaluation. Initial lab evaluation showed WBC 20.3, ANC 14, Hgb 10.2g/dL, Hct 36.8, MCV 72.9,
platelets 958,000 with normal renal function and calcium. LFTs show tbili 0.6, AST 122, ALT 41, Alk phos 247. UA w/o pyuria, however, shows +1 bld w RBC. CxR shows new moderate diffuse coarsening of the interstitial markings throughout both
lungs. Covid and Influenza A&B are negative. Blood cultures are pending. She was admitted for BIPAP and started on a nitroglycerin gtt. She underwent right heart catheterization 05/11/2024. She has improvement in thrombocytosis and resolution of
transaminitis since admission, however, her Hgb has acutely dropped to 8.5g/dL today.
She was previously evaluated by Dr. Ndiaye for iron deficient anemia and lost to follow up with our office in 2019 and has been seeing Dr. Kowalski for IV iron outpatient. Historical labs show chronic anemia with iron deficiency. SHe had been
tolerating oral iron at the time of her last office visit and continues oral iron to this day. EGD/colonoscopy in 2019 w/o malignancy, however, gastric polyp biopsy did show severely ulcerated hyperplastic polyp with interstitial metaplasia and
granulation tissue. Her Celiac panel in 2019 was negative.
Clinically, she denies fever, cough, chest pain, nausea,vomiting, diarrhea, constipation, abdominal pain, dysuria, dizziness, headache, or sick contacts. She denies any overt bleeding, atypical bruising, or hematoma at cath site.
Afebrile, no hypotension, 2L NC
Past-Medical/Surgical History
PMH: HTN, HLD, PUD, SANDI, bells palsy, GERD, NICM, HFrEF 40-45%, CAD
PSH: Billroth II partial gastrectomy 1999. cholecystectomy
Social former smoker, Denies ETOH or recreational drugs. 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
Family:
Patient Medication
�Medication �Instructions �Recorded �Confirmed �Last Taken �Type
pantoprazole 40 mg tablet,delayed 40 mg PO DAILY Gastrointestinal 01/23/23 05/11/24 10/08/23 History
release Issue
aspirin 81 mg tablet,delayed 81 mg PO DAILY Heart 10/08/23 05/11/24 10/08/23 History
release Disease/Condition
atorvastatin 20 mg tablet 20 mg PO DAILY High Cholesterol 10/08/23 05/11/24 10/08/23 History
ferrous sulfate 142 mg (45 mg 142 mg PO DAILY Supplement 10/08/23 05/11/24 10/08/23 History
iron) tablet,extended release
pregabalin 25 mg capsule 50 mg PO BID Neurological Condition 10/08/23 05/11/24 10/08/23 History
metoprolol succinate 25 mg 25 mg PO BID 30 days #60 tabs 01/04/24 05/11/24 Unknown Rx
tablet,extended release 24 hr
polyethylene glycol 3350 17 gram 17 g PO DAILYPRN PRN constipation 05/11/24 05/11/24 Unknown History
oral powder packet ([employer]yLax)
sacubitril 24 mg-valsartan 26 mg 1 tab PO BID Heart 05/11/24 05/11/24 Unknown History
tablet (Entresto) Disease/Condition
spironolactone 25 mg tablet 12.5 mg PO DAILY Fluid 05/11/24 05/11/24 Unknown History
Retention/Swelling
Active Medications
Generic Name Dose Route Start Last Admin
Trade Name Freq PRN Reason Stop Dose Admin
Acetaminophen 650 mg 05/11/24 16:49
Acetaminophen 325 Mg Tablet PO 06/08/24 16:48
Q6HPRN PRN
mild pain/ fever>100.5F
Aspirin 81 mg 05/12/24 08:00 05/12/24 08:30
Aspirin 81 Mg (Enteric Coated) Tablet PO 06/09/24 07:59 81 mg
DAILY CARMELITA Administration
Atorvastatin Calcium 20 mg 05/12/24 08:00 05/12/24 08:29
Atorvastatin (Lipitor) 20 Mg Tablet PO 06/09/24 07:59 20 mg
DAILY CARMELITA Administration
Enoxaparin Sodium 40 mg 05/11/24 18:00 05/11/24 18:31
Enoxaparin Sodium 40 Mg/0.4 Ml Syringe SC 06/08/24 17:59 Not Given
QPM CARMELITA
Ferrous Sulfate 325 mg 05/12/24 08:00 05/12/24 08:30
Ferrous Sulfate 325 Mg Tablet PO 06/09/24 07:59 325 mg
DAILY CARMELITA Administration
Piperacillin Sod/Tazobactam Sod 3.375 gram in 50 mls @ 100 mls/hr 05/12/24 10:00
Zosyn IV
Q6H CARMELITA
Metoprolol Succinate 25 mg 05/11/24 20:00 05/12/24 08:31
Metoprolol 25 Mg Extended Release Tablet PO 06/08/24 19:59 25 mg
BID CARMELITA Administration
Oxycodone HCl 5 mg 05/11/24 16:49
Oxycodone 5 Mg Regular Release Tablet PO 05/25/24 16:48
Q4HPRN PRN
moderate pain
Pantoprazole Sodium 40 mg 05/12/24 08:00 05/12/24 08:29
Pantoprazole 40 Mg Delayed Release Tablet PO 06/09/24 07:59 40 mg
DAILY CARMELITA Administration
Polyethylene Glycol 17 grams 05/11/24 16:49
Polyethylene Glycol Powder 17 Grams Packet PO 06/08/24 16:48
DAILYPRN PRN
constipation
Pregabalin 50 mg 05/11/24 20:00 05/12/24 08:30
Pregabalin 50 Mg Capsule PO 06/08/24 19:59 50 mg
BID CARMELITA Administration
Sacubitril/Valsartan 1 tab 05/11/24 20:00 05/12/24 08:31
Sacubitril 24 Mg/Valsartan 26 Mg (Entresto) Tab PO 06/08/24 19:59 1 tab
BID CARMELITA Administration
Sodium Chloride 0 flush 05/11/24 17:00
Sodium Chloride 0.9% (Flush) Syringe IV 06/08/24 16:59
PER PROTOCOL CARMELITA
Spironolactone 12.5 mg 05/12/24 08:00 05/12/24 08:20
Spironolactone 12.5 Mg Dose (1/2 Of 25 Mg Tablet) PO 06/09/24 07:59 12.5 mg
DAILY CARMELITA Administration
Review of Systems
-
ROS notable for HPI, otherwise negative
Physical Exam
-
General: No Apparent Distress
HEENT: Moist Mucous Membranes; Negative Jaundice
Cardiology: S1 and S2
Pulmonary: Clear
GI: Soft and Other (thin)
Extremities: Pulses Present; Negative Edema
Neurology: Other (bells palsy)
Skin: Warm
Labs
Lab Results
WBC 13.7 10^3/uL (4.8-10.8) H 05/12/24 09:35
RBC 4.20 10^6/uL (4.20-5.40) 05/12/24 09:35
Hgb 8.5 g/dL (12.0-16.0) L 05/12/24 09:35
Hct 28.9 % (37.0-47.0) L 05/12/24 09:35
MCV 68.8 fL (81.0-99.0) L 05/12/24 09:35
MCH 20.2 pg (27.0-31.0) L 05/12/24 09:35
MCHC 29.4 g/dL (33.0-37.0) L 05/12/24 09:35
RDW 19.1 % (11.5-14.5) H 05/12/24 09:35
Plt Count 716 10^3/uL (130-400) H 05/12/24 09:35
MPV 10.1 fL (7.4-10.4) 05/12/24 09:35
Abs Immat Gran (auto) 0.2 10^3/uL (0-0.05) H 05/11/24 09:36
Absolute Neuts (auto) 14.3 10^3/uL (1.4-6.5) H 05/11/24 09:36
Absolute Lymphs (auto) 4.0 10^3/uL (1.2-3.4) H 05/11/24 09:36
Absolute Monos (auto) 1.3 10^3/uL (0.1-0.6) H 05/11/24 09:36
Absolute Eos (auto) 0.4 10^3/uL (0-0.7) 05/11/24 09:36
Absolute Basos (auto) 0.1 10^3/uL (0-0.2) 05/11/24 09:36
Immature Gran % 0.7 % (0-0.5) H 05/11/24 09:36
Neutrophils % 70.7 % (42.2-75.2) 05/11/24 09:36
Lymphocytes % 19.8 % (20.5-51.1) L 05/11/24 09:36
Monocytes % 6.6 % (1.7-9.3) 05/11/24 09:36
Eosinophils % 1.8 % (0-6) 05/11/24 09:36
Basophils % 0.4 % (0-2) 05/11/24 09:36
Creatinine 0.7 mg/dL (0.6-1.0) 05/12/24 04:25
Vital Signs
Vital Signs
Temp Pulse Resp BP Pulse Ox
97.4 F 64 16 148/81 98
05/12/24 04:13 05/12/24 04:11 05/12/24 04:13 05/12/24 08:31 05/12/24 04:13
--- NOTE | 2024-05-12 10:20 | PTCARENOTE ---
Addendum entered by Anca Verde RN 05/12/24 10:52:
Nitro drip D/C @ 9:30 per MD order.
Original Note:
Received patient at change of shift. Patient awake, alert, and oriented sitting in bed. Left IV running Nitro @ 5mcg/min (0.8 mL/hr). Right IV running KCL 42mL/hr (adjusted when went in to check pumps- pt said 'it was not burning any longer and
would like it to go back up so it didn't have to run as long'). BP 145/92, HR NSR 70s-80s with BBBC, 98% on 2L nasal cannula. Right groin femoral site clean, dry and intact. Left femoral venous site open to air. Right brachial site clean, dry and
intact. No hematoma or tenderness at any site. Discussed plan of care for the day. Call fajardo within reach.
[2024-05-12] MEDS: ZOSYN 50 IV ×3 (11:52→22:49)
--- NOTE | 2024-05-12 12:14 | PTCARENOTE ---
Patient returned to floor from US and ECHO at 11:15. Got patient situated and recognized right forearm IV was leaking. Removed IV at 11:40. Pulled IV Zosyn-- see MAR. When started, IV in left arm began leaking as well. Stopped KCL and Zosyn at 12:05
and removed IV. Patient notified RN that when she was here in December, they had to do a midline because her sites continued to leak. IV team called.
--- NOTE | 2024-05-12 15:53 | CM ---
CM following for DC planning needs.
Met w/ patient at bedside to complete initial assessment.
Pt. informs that she resides in a private, 1 story home w/ spouse and 2 adult sons.
Pt. is functionally indep. at baseline w/ ADLs, mobility. Pt. has RW at home but does not use this.
Anticipated DC plan is for home without needs.
Will cont. to follow.
[2024-05-12] MEDS: LOVENOX 40 MG SC (17:18)
[2024-05-12] MEDS: TYLENOL 650 MG PO (20:09)
[2024-05-13] VITALS (11 sets, daily range): BP systolic 122–160; BP diastolic 67–98; PULSE 72; O2SAT 93; BMI 16.3
--- NOTE | 2024-05-13 00:11 | PTCARENOTE ---
Pt alarmed VT- 19 beat run- Pt sleeping asymptomatic when staff checked. BP 132/77 SPO2- 88 RA placed on 2L NC to bring to 92% PAGabino Bonilla made aware- Mag added to morning lab work.
[2024-05-13 03:32] LABS: Reticulocyte Count 1.5 % (0.4-2.8)
[2024-05-13] MEDS: ZOSYN 50 IV ×4 (03:45→21:23)
[2024-05-13 04:00] LABS: Magnesium 1.7 mg/dl (1.6-2.3)
[2024-05-13 04:13] LABS: Blood Urea Nitrogen 18 mg/dl (7-17); Calcium 9.1 mg/dl (8.4-10.2); Carbon Dioxide 32 mmol/L (22-30); Chloride 103 mmol/L (98-107); Estimated Creatinine Clearance 50 ml/min; Glucose 88 mg/dl (70-99); Iron 28 ug/dl (37-170); Percent Saturation 10 % (20-50); Potassium 3.8 mmol/L (3.5-5.1); Sodium 142 mmol/L (135-145); Total Iron Binding Capacity 279 ug/dl (265-497); eGFR > 60.00
[2024-05-13 04:36] LABS: Ferritin 14.6 ng/ml (11.1-264.0)
[2024-05-13 04:42] LABS: Hematocrit 27.7 % (37.0-47.0); Hemoglobin 7.9 g/dL (12.0-16.0); Mean Corp Hgb Conc. 28.5 g/dL (33.0-37.0); Mean Corpuscular Hgb 20.1 pg (27.0-31.0); Mean Corpuscular Volume 70.5 fL (81.0-99.0); Mean Platelet Volume 10.3 fL (7.4-10.4); Platelet Count 597 10^3/uL (130-400); Red Blood Cell Count 3.93 10^6/uL (4.20-5.40); Red Cell Dist. Width 18.9 % (11.5-14.5); White Blood Cell Count 8.9 10^3/uL (4.8-10.8)
[2024-05-13] MEDS: MAGNESIUM SULFATE 50 IV (05:27)
[2024-05-13] MEDS: KCL 20 MEQ PO (05:27)
--- NOTE | 2024-05-13 06:11 | PTCARENOTE ---
K repleted with PO 20 meq and Mag repleted with 2g IV.
--- NOTE | 2024-05-13 07:52 | W.PN.CD ---
Today's Communication / Plan
-
D/C metoprolol.
Start carvedilol 12.5 mg BID and monitor response.
Leukocytosis workup per primary team.
Monitor H/H in light of RIMMA dissection. No obvious blood loss/hematoma/pseudoanuerysm.
Check non-contrast CT of abdomen and pelvis to r/o hematoma not observed by US.
Impression / Plan
-
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
-Recurrent, likely related to hypertensive crisis.
-Blood pressure and volume status improved. Primary treatment will be aggressive blood pressure control.
-Continue current doses of sacubitril-valsartan and spironolactone.
#Acute on chronic anemia
-Status-postcardiac catheterization yesterday with retrograde dissection.
-No groin hematoma, but significant left femoral bruit auscultated with palpable thrill. Femoral US negative for pseudoaneurysm/hematoma.
-Hematology involved, suspect chronic Fe deficieny and reactive thrombocytosis. Parenteral Fe started. Prior myelofibrosis workup negative.
-Continue to monitor H/H.
-Non-contrast CT abdomen/pelvis to evaluate for hidden/RP hematoma (may not be seen on US).
#Hypertension
-Chronic, prone to hypertensive emergency.
-I suspect we are undertreating her chronic hypertension. There is a 30+ mmHg gradient in the right arm, 20-25 mmHg in the left arm. She has severe LE PAD which will also limit validity of NIBP in the legs.
-Continue sacubitril-valsartan and spironolactone.
-Change metoprolol to carvedilol 12.5 mg BID and monitor.
-Our goal should be a NIBP around 100 mmHg.
#CAD
-Chronic, stable.
-There is a stable, densely calcified, non-obstructive 60% ostial LCx lesion (iFR = 0.94).
-Continue aspirin and atorvastatin.
-Change metoprolol to carvedilol as above.
#Leukocytosis
-Acute.
-Currently on droplet precautions; workup and management as per primary team.
-SARS-CoV-2 negative.
#LBBB
-Chronic, stable.
Subjective/Interval History:
IV leaking yesterday.
Patient noted to have a significant drop in Hbg with left femoral artery bruit (in the context of retrograde dissection),
Femoral artery US r/o pseudoaneurysm/vascular compromise.
Hematology consulted, believes she suffers from chronic Fe insufficiency (likely due to Billroth II). Parenteral Fe started.
NIBP's still running mildly elevated (130's), implying her true blood pressures are in the 150-165 range.
SaO2 98% on 2LNC.
Hbg/Hct highly variable (7.9 <-- 8.5 <-- 7.7 <-- 10.2). No transfusions. No obvious bleeding.
DATA:
Left femoral Duplex US, 05/12/2024:
IMPRESSION:
Unremarkable duplex examination of the left groin.
No hematoma, pseudoaneurysm, or arteriovenous fistula.
Right femoral Duplex US, 05/12/2024:
IMPRESSION:
Unremarkable duplex examination of the right groin.
No hematoma, pseudoaneurysm, or arteriovenous fistula.
TTE, 05/12/2024:
CONCLUSIONS
Moderately reduced left ventricular systolic function. Global hypokinesis with
severe hypokinesis of the basal to mid septal decker and basal to mid inferior
decker.
Left ventricular ejection fraction is 35-40%.
Stage I diastolic dysfunction suggestive of abnormal relaxation.
Normal right ventricular size and function.
Mild aortic regurgitation.
Compared to the prior images on 12/30/2023 the EF looks slightly worse. The last
reported ejection fraction was 40%, today is 35 to 40%.
Cardiac/renal/peripheral catheterization, 05/12/2024:
CONCLUSIONS:
1. Right dominant circulation with luminal irregularities in the entire coronary tree as well as a densely calcified, nonocclusive 60% lesion in the ostium of the circumflex (IFR = 0.94).
2. Mild suprarenal aortic dilation with no evidence of renal artery stenosis.
3. Significant PAD with an 80% stenosis in the right proximal external iliac artery and a mid 50% lesion in the more distal right external iliac artery, a 50% lesion in the distal left external iliac artery and a 50-60% lesion in the left common
femoral artery.
4. 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
Physical Exam
Vital Signs/Labs
Vital Signs
Temp Pulse Resp BP Pulse Ox
36.6 C 65 20 132/77 98
05/13/24 07:02 05/12/24 23:45 05/13/24 07:02 05/12/24 23:45 05/13/24 07:02
05/11/24 05/12/24 05/13/24
11:59 11:59 11:59
Actual Weight 46.9 kg 45.2 kg 45.8 kg
05/13/24 10:00
05/13/24 03:16
Magnesium 1.7 mg/dl (1.6-2.3) 05/13/24 03:16
Triglycerides 82 mg/dl (10-149) 05/12/24 04:25
LDL Cholesterol, Calc 49 mg/dl 05/12/24 04:25
VLDL Cholesterol, Calc 16 mg/dl (0-30) 05/12/24 04:25
HDL Cholesterol 37 mg/dl 05/12/24 04:25
05/11/24
09:36
Coc-V-Vxmeqcsarsy Pept 13771
LAB Results
05/11/24
09:36
Troponin I 0.023
Physical Exam
Constitutional: No acute distress and Comfortable
EENT: Anicteric and Moist mucous membranes
Cardiovascular: Rhythm & rate is regular, Pedal edema is absent, JVD pressure is normal, S1S2 is normal and Murmur/rub/gallop absent
Respiratory: Respiratory effort normal, Lungs clear to auscul., Wheeze Absent, Crackles Absent and Rhonchi Absent
GI: Soft, Distention absent, Flat, Non tender and Normal bowel sounds
Neuro/Psych: AO x 3
Other: Cath Site (Bilateral femoral artery access sites are C/D/I.)
Data Reviewed
-
Date of Service: May 13, 2024
Medical Decision Making: Reviewed Test Results, Independent Historian Assessment and Test Interpretation
EKG: Tracing Personally Visualized and interpreted and Report Reviewed by me
Echo: Report Reviewed by me
X-Ray/CT/US/MRI/NUC/PET: Image Personally Visualized and interpreted and Report Reviewed by me
Medical Tests (PFT, Pathology etc): Image Personally Visualized and interpreted and Report Reviewed by me
Labs: Labs Reviewed by me
Old Records: Reviewed
[2024-05-13] MEDS: ASPIR LOW (ENTERIC COATED) 81 MG PO (08:59)
[2024-05-13] MEDS: ALDACTONE 12.5 MG PO (09:00)
[2024-05-13] MEDS: FEOSOL 325 MG PO (09:00)
[2024-05-13] MEDS: ENTRESTO 24 MG/26 MG 1 TAB PO ×2 (09:00→19:51)
[2024-05-13] MEDS: LYRICA 50 MG PO ×2 (09:01→19:51)
[2024-05-13] MEDS: LIPITOR 20 MG PO (09:01)
[2024-05-13] MEDS: TOPROL XL 25 MG PO (09:02)
[2024-05-13] MEDS: PROTONIX 40 MG PO (09:02)
[2024-05-13] MEDS: FLUSH (NSS) 1 FLUSH IV (09:02)
--- NOTE | 2024-05-13 09:16 | W.PN.HOSP.TC ---
Today's Communication/Plan
-
Monitor hemoglobin
Discharge tomorrow
Assessment / Plan
Assessment / Plan
73-year-old female with a past medical history of NICM EF 40-45%, non-obstructive CAD (60% LCX cath 2022), hypertension, LBBB, pSVT, hyperlipidemia, PUD s/p stomach resection, and iron deficiency anemia presents with acute onset of shortness of
breath this morning. Patient states she woke up short of breath this morning, and it has progressively worsened so she came to the emergency room. She denies fever, denies coughing. No chest pain, no nausea, no vomiting. No abdominal pain. No
dysuria. No sick contacts. Patient had a recent admission on 12/30/2023 for a similar presentation, requiring intubation. Currently, she is on BiPAP and a nitroglycerin drip.
#Acute hypoxic respiratory failure
#Acute flash pulmonary edema
#Acute on chronic HFmrEF
Status post BiPAP and nitro drip, wean as tolerated
Status post IV Lasix
Appreciate cardiology input, cardiac catheterization 05/11 showed nonobstructive coronary artery disease, peripheral artery disease
Cardiology suspects we have been under treating her hypertension, which leads to intermittent flash pulmonary edema
#Hypertensive emergency
Blood pressure peaked at 210/112 in the ER
Now normalized s/p nitroglycerin drip
Continue metoprolol, Entresto, spironolactone
Started on Coreg 12.5 mg twice a day
Goal systolic blood pressure 100
#Systemic inflammatory response syndrome
#Leukocytosis
#Tachycardia
UA not indicative of infection
Procalcitonin elevated, started on Zosyn empirically, can change to oral antibiotics upon discharge
#Thrombocytosis
Appreciate hematology input, likely reactive
Previous MPN panel failed to show evidence mutations of myeloproliferative disorder
#Acute on chronic iron deficiency anemia
Groin ultrasound negative for hematoma
CT abdomen and pelvis negative for hematoma
Continue ferrous sulfate, follow-up with hematology in the office for outpatient iron infusions prn
#Cachexia
Encourage oral intake
#Hypokalemia
Repleted and resolved
#Hypernatremia
Resolved
#Mild transaminitis
Monitor
#Peptic ulcer disease
Continue PPI
#Hyperlipidemia
Continue statin
DVT prophylaxis�subcu Lovenox
Full code
Total time spent to see the patient on the floor, examine the patient, review data and lab results, discuss treatment plan with patient, nursing staff around 41 minutes.
Physical Exam
General: Cachectic appearing, no acute distress
HEENT: Normocephalic, Atraumatic, EOMI, MMM
Respiratory: Diminished breath sounds at the right lung base with faint basilar crackles
Cardiac: Normal S1/S2, Regular Rate and Rhythm
GI: Soft, Nontender, Nondistended, Normal Bowel Sounds
Extremities: No Clubbing, Cyanosis, or Edema
Neuro: Nonfocal/Grossly Intact
Psych: Calm, Cooperative
Anticipated Discharge: Within 24 hours
Subjective/Interval History
-
Date of Service: May 13, 2024
Denies shortness of breath with walking. No fever, no vomiting.
Objective Data
-
Labs:
Laboratory Results
05/13/24 05/13/24
03:16 10:00
WBC 8.9 Cancelled
Hgb 7.9 L Cancelled
Hct 27.7 L Cancelled
Plt Count 597 H Cancelled
Sodium 142
Potassium 3.8 D
Chloride 103
Carbon Dioxide 32 H
BUN 18 H
Creatinine 0.7
Glucose 88
Calcium 9.1
Vital Signs:
Vital Signs
Temp Pulse Resp BP Pulse Ox
97.8 F 56 20 133/80 98
05/13/24 07:02 05/13/24 08:00 05/13/24 07:02 05/13/24 07:04 05/13/24 07:04
I&O
05/12/24 05/13/24 05/14/24
06:59 06:59 06:59
Intake Total 240 / 240 460 / 460
Output Total 1175 / 1175 575 / 575
Balance -935 / -935 -115 / -115
--- NOTE | 2024-05-13 10:42 | PTCARENOTE ---
Received patient this morning resting in bed, had a good night, slept well. After seen by cardiology, patient was sent for a CT of her abd/pelvis. Bilateral groins are open to air, with no signs of bleeding or hematoma. OOB now eating breakfast,
call fajardo in reach.
--- NOTE | 2024-05-13 11:09 | CM ---
CM following for DC planning needs.
CM met w/ patient at bedside. Pt. reports that she is feeling well. She is hopeful for DC soon.
DC plan is to return to home without needs. She declines VN, states that she has ample support at home w/ spouse and adult sons.
Plan is for home, no needs.
Will cont. to follow.
--- NOTE | 2024-05-13 11:17 | PN.CDI ---
Addendum entered and electronically signed by Thomas Null MD 05/13/24 15:15:
Documentation complete.
Original Note:
CDI
- -
CDI:
Physician Documentation Request
Admit Date: 05/11/24 11:44
Dear Doctor ,
Patient presented to ED with shortness of breath. Placed on BiPaP for acute hypoxic respiratory failure.
H&P states 'hypertensive emergency'
Cardiology consult refers to the hypertension as 'hypertensive crisis'
In an attempt to clarify potential conflicting documentation, please clarify the hypertension:
Hypertensive Emergency - B/P is severely elevated (systolic > or = to 180 or diastolic > or = to 110) but can occur at lower levels especially in patients who did not previously have high B/P. There is usually associated organ damage. Symptoms may
include: memory loss, LOC, CVA, DE, angina, renal failure, pulmonary edema. Generally requires more aggressive treatment and a hospitalization.
Hypertensive Crisis - an acute elevation in B/P that can lead to organ damage. Broad term that is further differentiated to include urgency or emergency based on presence of organ damage.
Other (please specify)
Use of terms such as suspected, likely, concern for, or probable (associated with a specific diagnosis that is being evaluated, monitored, or treated as if it exists) are acceptable and can be coded in the inpatient setting, when documented at the
time of discharge.
Thank you,
Aide Neal RN, BSN
CDI Specialist
tiger text
Please use your independent medical judgment in providing your response.
--- NOTE | 2024-05-13 11:22 | PN.CDI ---
CDI
- -
CDI:
Physician Documentation Request
Admit Date: 05/11/24 11:44
Dear Doctor Do,
Patient admitted with flash pulmonary edema.
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
Patient takes Entresto as outpatient.
05/11 BNP [id number]
Please indicate in your progress notes if you are in agreement that the above diagnosis is valid for this patient:
____ - Acute on chronic HFmrEF is a valid diagnosis (Please include it in your progress notes)
____ - Acute on chronic HFmrEF is not a valid diagnosis for this patient
____ - Other
Use of terms such as suspected, likely, concern for, or probable are acceptable for a diagnosis that is being evaluated, monitored or treated as if it exists and can be coded in the inpatient setting, when documented at the time of discharge.
Thank you,
Aide Neal RN BSN
CDI Specialist
tiger text
Please use your independent medical judgment in providing your response.
[2024-05-13] MEDS: LOVENOX 40 MG SC (17:05)
[2024-05-13] MEDS: COREG 12.5 MG PO (19:50)
[2024-05-13] MEDS: TYLENOL 650 MG PO (21:21)
[2024-05-14] VITALS (7 sets, daily range): BP systolic 127–141; BP diastolic 60–78; PULSE 70; BMI 16.4
[2024-05-14] MEDS: ZOSYN 50 IV ×4 (04:48→21:58)
[2024-05-14 04:51] LABS: Hematocrit 27.4 % (37.0-47.0); Mean Corp Hgb Conc. 29.2 g/dL (33.0-37.0); Mean Corpuscular Hgb 20.3 pg (27.0-31.0); Mean Corpuscular Volume 69.4 fL (81.0-99.0); Mean Platelet Volume 10.1 fL (7.4-10.4); Platelet Count 561 10^3/uL (130-400); Red Blood Cell Count 3.95 10^6/uL (4.20-5.40); Red Cell Dist. Width 18.7 % (11.5-14.5); White Blood Cell Count 8.5 10^3/uL (4.8-10.8)
--- NOTE | 2024-05-14 05:10 | PTCARENOTE ---
Pt. had no complaints of CP or SOB overnight, NSR on the monitor, VSS. Pulse ox best obtained on big toe (pt. wearing gel nail belizean) - 93-94% RA. Ambulating with minimal assist and RW. Femoral and brachial cath sites SPORT INTERN and WNL.
[2024-05-14 05:15] LABS: Blood Urea Nitrogen 20 mg/dl (7-17); Calcium 8.7 mg/dl (8.4-10.2); Carbon Dioxide 30 mmol/L (22-30); Chloride 102 mmol/L (98-107); Estimated Creatinine Clearance 45 ml/min; Glucose 82 mg/dl (70-99); Magnesium 1.9 mg/dl (1.6-2.3); Potassium 4.1 mmol/L (3.5-5.1); Sodium 142 mmol/L (135-145); eGFR > 60.00
[2024-05-14] MEDS: ASPIR LOW (ENTERIC COATED) 81 MG PO (08:50)
[2024-05-14] MEDS: PROTONIX 40 MG PO (08:50)
[2024-05-14] MEDS: FEOSOL 325 MG PO (08:51)
[2024-05-14] MEDS: LYRICA 50 MG PO ×2 (08:51→20:03)
[2024-05-14] MEDS: LIPITOR 20 MG PO (08:51)
[2024-05-14] MEDS: COREG 12.5 MG PO ×2 (08:52→20:03)
[2024-05-14] MEDS: ENTRESTO 24 MG/26 MG 1 TAB PO ×2 (08:52→13:16)
--- NOTE | 2024-05-14 09:28 | W.PN.HOSP.TC ---
Today's Communication/Plan
-
see bold
Assessment / Plan
Assessment / Plan
73-year-old female with a past medical history of NICM EF 40-45%, non-obstructive CAD (60% LCX cath 2022), hypertension, LBBB, pSVT, hyperlipidemia, PUD s/p stomach resection, and iron deficiency anemia presents with acute onset of shortness of
breath this morning. Patient states she woke up short of breath this morning, and it has progressively worsened so she came to the emergency room. She denies fever, denies coughing. No chest pain, no nausea, no vomiting. No abdominal pain. No
dysuria. No sick contacts. Patient had a recent admission on 12/30/2023 for a similar presentation, requiring intubation. Currently, she is on BiPAP and a nitroglycerin drip.
#Acute hypoxic respiratory failure
#Acute flash pulmonary edema
#Acute on chronic HFmrEF
Status post BiPAP and nitro drip, wean as tolerated
Status post IV Lasix
Appreciate cardiology input, cardiac catheterization 05/11 showed nonobstructive coronary artery disease, peripheral artery disease
Cardiology suspects we have been under treating her hypertension, which leads to intermittent flash pulmonary edema
#Hypertensive emergency
Blood pressure peaked at 210/112 in the ER
Now normalized s/p nitroglycerin drip
There is a 30+ mmHg gradient in the right arm, 20-25 mmHg in the left arm. She has severe LE PAD which will also limit validity of NIBP in the legs
Appropriate calibration of home readings she will add 25mmHg to her systolic value
Continue metoprolol, spironolactone
Started on Coreg 12.5 mg twice a day
Goal systolic blood pressure 100-110
Cardiology increased Entresto
#Systemic inflammatory response syndrome
#Leukocytosis
#Tachycardia
UA not indicative of infection
Procalcitonin elevated, started on Zosyn empirically, can change to oral antibiotics upon discharge
#Thrombocytosis
Appreciate hematology input, likely reactive
Previous MPN panel failed to show evidence mutations of myeloproliferative disorder
#Acute on chronic iron deficiency anemia
Groin ultrasound negative for hematoma
CT abdomen and pelvis negative for hematoma
Continue ferrous sulfate, follow-up with hematology in the office for outpatient iron infusions prn
#Cachexia
Encourage oral intake
#Hypokalemia
Repleted and resolved
#Hypernatremia
Resolved
#Mild transaminitis
Monitor
#Peptic ulcer disease
Continue PPI
#Hyperlipidemia
Continue statin
DVT prophylaxis�subcu Lovenox
Full code
Total time spent to see the patient on the floor, examine the patient, review data and lab results, discuss treatment plan with patient, nursing staff around 38 minutes.
Physical Exam
General: Cachectic appearing, no acute distress
HEENT: Normocephalic, Atraumatic, EOMI, MMM
Respiratory: Diminished breath sounds at the right lung base with faint basilar crackles
Cardiac: Normal S1/S2, Regular Rate and Rhythm
GI: Soft, Nontender, Nondistended, Normal Bowel Sounds
Extremities: No Clubbing, Cyanosis, or Edema
Neuro: Nonfocal/Grossly Intact
Psych: Calm, Cooperative
Anticipated Discharge: Within 24 hours
Subjective/Interval History
-
Date of Service: May 14, 2024
No dyspnea with activity. No chest pain, no shortness of breath. No fever, no vomiting.
Objective Data
-
Labs:
Laboratory Results
05/14/24 05/14/24
04:21 06:00
WBC 8.5
Hgb 8.0 L
Hct 27.4 L
Plt Count 561 H
Sodium 142
Potassium 4.1
Chloride 102
Carbon Dioxide 30
BUN 20 H
Creatinine 0.8
Glucose 82
Calcium 8.7
Vital Signs:
Vital Signs
Temp Pulse Resp BP Pulse Ox
98.4 F 77 16 138/77 92
05/14/24 07:08 05/14/24 04:10 05/14/24 07:08 05/14/24 04:10 05/14/24 07:08
I&O
05/13/24 05/14/24 05/15/24
06:59 06:59 06:59
Intake Total 460 / 460 1230 / 1230
Output Total 575 / 575 875 / 875
Balance -115 / -115 355 / 355
[2024-05-14] MEDS: ALDACTONE 12.5 MG PO (09:55)
--- NOTE | 2024-05-14 12:01 | W.PN.CD ---
Today's Communication / Plan
-
-Will increase sacubitril-valsartan-- to 49/51mg BID
Continue to closely monitor bp
Impression / Plan
-
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
-Recurrent, likely related to hypertensive crisis.
-Blood pressure and volume status improved. Primary treatment will be aggressive blood pressure control.
-Continue current doses of sacubitril-valsartan and spironolactone.
#Acute on chronic anemia
-Status-postcardiac catheterization with retrograde dissection.
-No groin hematoma, but significant left femoral bruit auscultated with palpable thrill. Femoral US negative for pseudoaneurysm/hematoma.
-Hematology involved, suspect chronic Fe deficieny and reactive thrombocytosis. Parenteral Fe started. Prior myelofibrosis workup negative.
-Continue to monitor H/H.
-Non-contrast CT abdomen/pelvis to evaluate for hidden/RP hematoma (may not be seen on US) was negative for RP bleed.
#Hypertension
-Chronic, prone to hypertensive emergency.
-I suspect we are undertreating her chronic hypertension. There is a 30+ mmHg gradient in the right arm, 20-25 mmHg in the left arm. She has severe LE PAD which will also limit validity of NIBP in the legs.
-Continue sacubitril-valsartan---Will increase now to 49/51mg BID
-continjue spironolactone.
- 05/13/24 Change metoprolol to carvedilol 12.5 mg BID and monitor.
-Our ultimate goal should be a NIBP around 100 mmHg.
-we discussed the appropriate calibration of home readings she will add 25mmHg to her systolic value.
#CAD
-Chronic, stable.
-There is a stable, densely calcified, non-obstructive 60% ostial LCx lesion (iFR = 0.94).
-Continue aspirin and atorvastatin.
-Change metoprolol to carvedilol as above.
#Leukocytosis
-Acute.
-Currently on droplet precautions; workup and management as per primary team.
-SARS-CoV-2 negative.
#LBBB
-Chronic, stable.
Subjective/Interval History:
she is feeling well without compaint
DATA:
Left femoral Duplex US, 05/12/2024:
IMPRESSION:
Unremarkable duplex examination of the left groin.
No hematoma, pseudoaneurysm, or arteriovenous fistula.
Right femoral Duplex US, 05/12/2024:
IMPRESSION:
Unremarkable duplex examination of the right groin.
No hematoma, pseudoaneurysm, or arteriovenous fistula.
TTE, 05/12/2024:
CONCLUSIONS
Moderately reduced left ventricular systolic function. Global hypokinesis with
severe hypokinesis of the basal to mid septal decker and basal to mid inferior
decker.
Left ventricular ejection fraction is 35-40%.
Stage I diastolic dysfunction suggestive of abnormal relaxation.
Normal right ventricular size and function.
Mild aortic regurgitation.
Compared to the prior images on 12/30/2023 the EF looks slightly worse. The last
reported ejection fraction was 40%, today is 35 to 40%.
Cardiac/renal/peripheral catheterization, 05/12/2024:
CONCLUSIONS:
1. Right dominant circulation with luminal irregularities in the entire coronary tree as well as a densely calcified, nonocclusive 60% lesion in the ostium of the circumflex (IFR = 0.94).
2. Mild suprarenal aortic dilation with no evidence of renal artery stenosis.
3. Significant PAD with an 80% stenosis in the right proximal external iliac artery and a mid 50% lesion in the more distal right external iliac artery, a 50% lesion in the distal left external iliac artery and a 50-60% lesion in the left common
femoral artery.
4. 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
Physical Exam
Vital Signs/Labs
Vital Signs
Temp Pulse Resp BP Pulse Ox
98.4 F 71 16 135/70 93
05/14/24 07:08 05/14/24 10:00 05/14/24 07:08 05/14/24 07:10 05/14/24 08:39
05/13/24 05/14/24 05/15/24
06:59 06:59 06:59
Actual Weight 45.8 kg 46 kg
05/14/24 06:00
05/14/24 04:21
Magnesium 1.9 mg/dl (1.6-2.3) 05/14/24 04:21
Triglycerides 82 mg/dl (10-149) 05/12/24 04:25
LDL Cholesterol, Calc 49 mg/dl 05/12/24 04:25
VLDL Cholesterol, Calc 16 mg/dl (0-30) 05/12/24 04:25
HDL Cholesterol 37 mg/dl 05/12/24 04:25
05/11/24
09:36
[id number] Pept [id number]
Physical Exam
Constitutional: No acute distress
Cardiovascular: Rhythm & rate is regular, Pedal edema is absent, JVD pressure is normal, Systolic murmur absent and Diastolic murmur absent
Respiratory: Respiratory effort normal, Lungs clear to auscul., Wheeze Absent and Crackles Absent
Neuro/Psych: AO x 3
Data Reviewed
-
Date of Service: May 14, 2024
Medical Decision Making: Review of Case with other Provider (Dr Null and Radha RUSH nurse increased dose of Entresto)
EKG: Other (sinus)
[2024-05-14] MEDS: TYLENOL 650 MG PO ×2 (13:20→21:58)
--- NOTE | 2024-05-14 15:24 | PTCARENOTE ---
Dias cath removed without incident at 1115. Pt just voided in BR, did not measure urine. Collection container in BR, Pt instructed to use it the next time she voids
[2024-05-14] MEDS: LOVENOX 40 MG SC (17:26)
--- NOTE | 2024-05-14 17:35 | PTCARENOTE ---
Rec'd Pt from ED, A,A+Ox3, denies pain, pleasant and cooperative. Pt V-paced on monitor, with underlying A-Fib, at rate of 90-110's. BP 130/87.
[2024-05-14] MEDS: ENTRESTO 49 MG/51 MG 1 TAB PO (20:03)
--- NOTE | 2024-05-15 00:46 | PTCARENOTE ---
Pt. voiding post -Dias removal without difficulty this shift. NSR on the monitor, VSS.
[2024-05-15] MEDS: MAALOX 30 ML PO (02:13)
[2024-05-15 02:17] VITALS: BP 148/81
[2024-05-15 02:31] VITALS: BMI 16.6
[2024-05-15] MEDS: ZOSYN 50 IV ×2 (05:06→09:57)
[2024-05-15 05:49] LABS: Hematocrit 28.1 % (37.0-47.0); Hemoglobin 8.3 g/dL (12.0-16.0); Mean Corp Hgb Conc. 29.5 g/dL (33.0-37.0); Mean Corpuscular Hgb 20.2 pg (27.0-31.0); Mean Corpuscular Volume 68.4 fL (81.0-99.0); Mean Platelet Volume 9.9 fL (7.4-10.4); Platelet Count 559 10^3/uL (130-400); Red Blood Cell Count 4.11 10^6/uL (4.20-5.40); Red Cell Dist. Width 19.1 % (11.5-14.5); White Blood Cell Count 8.8 10^3/uL (4.8-10.8)
[2024-05-15 06:43] LABS: Procalcitonin 0.85 ng/ml (0.0-0.25)
[2024-05-15 07:03] VITALS: BP 140/73
[2024-05-15] MEDS: PROTONIX 40 MG PO (07:59)
[2024-05-15] MEDS: ASPIR LOW (ENTERIC COATED) 81 MG PO (07:59)
[2024-05-15] MEDS: ENTRESTO 49 MG/51 MG 1 TAB PO (07:59)
[2024-05-15] MEDS: FEOSOL 325 MG PO (07:59)
[2024-05-15] MEDS: LYRICA 50 MG PO (08:00)
[2024-05-15] MEDS: COREG 12.5 MG PO (08:00)
[2024-05-15] MEDS: LIPITOR 20 MG PO (08:01)
[2024-05-15] MEDS: FLUSH (NSS) 1 FLUSH IV (08:01)
[2024-05-15] MEDS: ALDACTONE 12.5 MG PO (08:01)
--- NOTE | 2024-05-15 08:04 | W.PN.HOSP.TC ---
Today's Communication/Plan
-
Cleared by cardiology for discharge today
Assessment / Plan
Assessment / Plan
73-year-old female with a past medical history of NICM EF 40-45%, non-obstructive CAD (60% LCX cath 2022), hypertension, LBBB, pSVT, hyperlipidemia, PUD s/p stomach resection, and iron deficiency anemia presents with acute onset of shortness of
breath this morning. Patient states she woke up short of breath this morning, and it has progressively worsened so she came to the emergency room. She denies fever, denies coughing. No chest pain, no nausea, no vomiting. No abdominal pain. No
dysuria. No sick contacts. Patient had a recent admission on 12/30/2023 for a similar presentation, requiring intubation. Currently, she is on BiPAP and a nitroglycerin drip.
#Acute hypoxic respiratory failure
#Acute flash pulmonary edema
#Acute on chronic HFmrEF
Status post BiPAP and nitro drip, wean as tolerated
Status post IV Lasix
Appreciate cardiology input, cardiac catheterization 05/11 showed nonobstructive coronary artery disease, peripheral artery disease
Cardiology suspects we have been under treating her hypertension, which leads to intermittent flash pulmonary edema
Cleared by cardiology for discharge today
#Hypertensive emergency
Blood pressure peaked at 210/112 in the ER
Now normalized s/p nitroglycerin drip
There is a 30+ mmHg gradient in the right arm, 20-25 mmHg in the left arm. She has severe LE PAD which will also limit validity of NIBP in the legs
Appropriate calibration of home readings she will add 25mmHg to her systolic value
Continue spironolactone
Metoprolol changed to Coreg 12.5 mg twice a day
Goal systolic blood pressure 100-110
Cardiology increased Entresto
#Systemic inflammatory response syndrome
#Leukocytosis
#Tachycardia
UA not indicative of infection
Procalcitonin elevated, started on Zosyn empirically
Discharge on Augmentin to complete a 7-day course
#Thrombocytosis
Appreciate hematology input, likely reactive
Previous MPN panel failed to show evidence mutations of myeloproliferative disorder
#Acute on chronic iron deficiency anemia
Groin ultrasound negative for hematoma
CT abdomen and pelvis negative for hematoma
Continue ferrous sulfate, follow-up with hematology in the office for outpatient iron infusions prn
#Cachexia
Encourage oral intake
#Hypokalemia
Repleted and resolved
#Hypernatremia
Resolved
#Mild transaminitis
Monitor
#Peptic ulcer disease
Continue PPI
#Hyperlipidemia
Continue statin
DVT prophylaxis�subcu Lovenox
Full code
Physical Exam
General: Cachectic appearing, no acute distress
HEENT: Normocephalic, Atraumatic, EOMI, MMM
Respiratory: Diminished breath sounds at the right lung base with faint basilar crackles
Cardiac: Normal S1/S2, Regular Rate and Rhythm
GI: Soft, Nontender, Nondistended, Normal Bowel Sounds
Extremities: No Clubbing, Cyanosis, or Edema
Neuro: Nonfocal/Grossly Intact
Psych: Calm, Cooperative
Anticipated Discharge: Today
Subjective/Interval History
-
Date of Service: May 15, 2024
No acute events. Patient feels well. No chest pain, no shortness of breath. No fever, no vomiting.
Objective Data
-
Labs:
Laboratory Results
05/15/24
05:37
WBC 8.8
Hgb 8.3 L
Hct 28.1 L
Plt Count 559 H
Vital Signs:
Vital Signs
Temp Pulse Resp BP Pulse Ox
97.9 F 65 20 140/73 93
05/15/24 06:59 05/15/24 08:00 05/15/24 06:59 05/15/24 07:59 05/15/24 06:59
I&O
05/14/24 05/15/24 05/16/24
06:59 06:59 06:59
Intake Total 1230 / 1230 240 / 240
Output Total 875 / 875 500 / 500 250 / 250
Balance 355 / 355 -260 / -260 -250 / -250
--- NOTE | 2024-05-15 09:36 | PTCARENOTE ---
Received patient at change of shift. Patient awake, alert, and oriented in bed. Right and left groin sites intact and open to air. Right brachial site intact and open to air. All extremities pink and warm with palpable pulses. BP 140/73, NSR 60s
with BBBC, 93% on room air. Discussed plan of care and patient verbalized understanding. Call fajardo left within reach.
--- NOTE | 2024-05-15 11:04 | W.DCSUMMARY ---
Discharge Summary
Discharge Data
Date of Admission: 05/11/24
Date of Discharge: 05/15/24
-
Pending Results: No
Hospital Course
Discharge diagnosis:
Acute hypoxic respiratory failure
Acute on chronic heart failure with a moderate reduced ejection fraction
Acute flash pulmonary edema
Essential hypertension
Coronary artery disease
Peripheral artery disease
Systemic inflammatory response syndrome
Leukocytosis with elevated procalcitonin
Thrombocytosis
Acute on chronic iron deficiency anemia
Retrograde external iliac dissection
Cachexia
Hypokalemia
Hypernatremia
Former smoker
Consults: Cardiology, hematology
Procedures: 05/11/2024 Cardiac catheterization
CONCLUSIONS:
1. Right dominant circulation with luminal irregularities in the entire coronary tree as well as a densely calcified, nonocclusive 60% lesion in the ostium of the circumflex (IFR = 0.94).
2. Mild suprarenal aortic dilation with no evidence of renal artery stenosis.
3. Significant PAD with an 80% stenosis in the right proximal external iliac artery and a mid 50% lesion in the more distal right external iliac artery, a 50% lesion in the distal left external iliac artery and a 50-60% lesion in the left common
femoral artery.
4. 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
RECOMMENDATIONS:
1. Expectant management after cardiac catheterization via right common femoral and right antecubital approach.
2. Limited weight bearing for one week.
3. Correlation of central aortic pressure and noninvasive blood pressure prior to sheath removal. I suspect that we have been chronically under treating her hypertension which is likely led to her episodes of flash pulmonary edema.
4. No role for percutaneous coronary intervention at this time.
5. Aggressive risk factor modification.
CT abd/pelvis:
1. Nonspecific slightly edematous appearance of bilateral kidneys which may reflect acute or chronic kidney disease.
2. Otherwise no significant acute abnormality identified in the abdomen or pelvis, within the limits of unenhanced CT, as described above. No evidence of retroperitoneal hematoma.
3. Trace lateral pleural effusions.
Hospital course:
73-year-old female with a past medical history of NICM EF 40-45%, non-obstructive CAD (60% LCX cath 2022), hypertension, LBBB, pSVT, hyperlipidemia, PUD s/p stomach resection, and iron deficiency anemia presented with acute shortness of breath, and
was admitted for acute hypoxic respiratory failure secondary to acute heart failure with flash pulmonary edema. Patient was treated with BiPAP and nitroglycerin drip in the ER. She received 1 dose of IV Lasix in the ER, and was weaned off of her
BiPAP and nitroglycerin drip.
Patient was seen in conjunction with cardiology, and underwent cardiac catheterization, showing nonobstructive coronary artery disease, peripheral artery disease, and retrograde external iliac dissection. Cardiology noted that there is a 30+ mmHg
gradient in the right arm, 20-25 mmHg in the left arm, and suspects that we are under treating her hypertension. Her actual blood pressure is 25 mmHg higher than her measured systolic value. She was continued on spironolactone 12.5 mg daily.
Cardiology changed her metoprolol to Coreg 12.5 mg twice a day. Her Entresto was increased. Her systolic blood pressure goal is 100�110.
Patient also had systemic inflammatory response syndrome, with a leukocytosis and tachycardia upon admission. Urine analysis and blood cultures were negative. Influenza and COVID were also negative. Her procalcitonin was elevated at 5.1. She
received IV Zosyn for empiric treatment while in the hospital. She will be discharged on Augmentin to complete a 7-day course.
Patient had acute on chronic iron def anemia and thrombocytosis. She was seen in conjunction with hematology. The thrombocytosis is reactive. Hematology recommends outpatient follow-up for IV iron infusions. She had a groin ultrasound and CT of
the abdomen and pelvis, which was negative for hematoma.
Patient is a former smoker with signs of peripheral artery disease on her cardiac catheterization. She has been referred to pulmonology for outpatient PFTs.
Patient is medically stable and cleared by cardiology for discharge. She needs to follow-up with her primary care doctor in 1 week, cardiology/pulmonology in the office in 2-3 weeks, and hematology in 3-4 weeks.
Disposition: Home self-care
Discharge planning: Required 48 minutes
Discharge Plan
-
Patient Disposition: Home (Routine Discharge)
Discharge Diagnosis/Procedures: Acute hypoxic respiratory failure, flash pulmonary edema, congestive heart failure, status post cardiac catheterization, essential hypertension
Condition: Good
Diet: Low Cholesterol and 2 Gram Sodium
Activity: As tolerated
Driving Restrictions: No driving for 24 hours
Specialty Instructions: Weigh Daily- Call MD for wt gain/loss 3 lbs overnight/5 lbs in 1 week
Activity Restrictions/Additional Instructions:
Your goal top number for blood pressure is 100-110.
Follow-up with your primary care doctor in 1 week, and cardiology as scheduled.
Follow-up with pulmonology in the office for outpatient PFTs to test for chronic obstructive pulmonary disease/COPD from previous smoking.
Instructions: *CBC Heart Failure Instructions
Stand Alone Forms: DC Instructions- Cath/EP Lab
Referrals:
Francesca Rodriguez CRNP [Specified Professional Personl] - 05/26/24 8:40 am
Mery Zimmerman DO [Active] - in two to three weeks
Anitra Aguilera DO [Family Provider] - in one week
Prescriptions:
New
carvedilol 12.5 mg Tablet
12.5 mg PO BID Qty: 60 0RF
Entresto 49-51 mg Tablet
1 tab PO BID Qty: 60 0RF
amoxicillin-pot clavulanate 875-125 mg tablet
1 tab PO BID 4 Days Qty: 8 0RF
Continued
pantoprazole 40 MG tablet,delayed release (DR/EC)
40 mg PO DAILY
aspirin 81 mg Tablet,Delayed Release (Dr/Ec)
81 mg PO DAILY
ferrous sulfate 142 mg (45 mg iron) Tablet Extended Release
142 mg PO DAILY
pregabalin 25 mg Capsule
50 mg PO BID
Patient Comments:
05/11/24: last filled 04/19/24, 90 tabs for 30 days from [facility]workmen [facility]
atorvastatin 20 mg tablet
20 mg PO DAILY
spironolactone 25 mg Tablet
12.5 mg PO DAILY
polyethylene glycol 3350 [HealthyLax] 17 gram powder in packet
17 g PO DAILYPRN PRN (Reason: constipation)
Discontinued
metoprolol succinate 25 mg Tablet Extended Release 24 Hr
25 mg PO BID 30 Days Qty: 60 0RF
Entresto 24-26 mg Tablet
1 tab PO BID
Rx Instructions:
on hold possibly due to blood pressure
Discharge Orders:
Discharge Patient (As Directed); Ordered 05/15/24
Ordered By: Thomas Null
Care Plan Goals
Care Plan Goals:
Problem: Readiness for enhanced knowledge related to diagnosis and treatment plan
Goal: Understand your diagnosis and treatment plan needs, including medications if applicable.
Instructions: Know your diagnosis, underlying causes and treatment plan options, including medications if applicable. Consult with your health care team to learn about your diagnosis and treatment plan, including medications if applicable.
Discharge Date and Time
Discharge Date/Time: 05/15/24 14:52
Print Language: CROATIAN
[2024-05-15 11:22] VITALS: BP 121/59
--- NOTE | 2024-05-15 14:31 | W.PN.CD ---
Today's Communication / Plan
-
ok for discharge
will have office send rx for labs prior to appt
follow up arranged for bp/volume status check
Impression / Plan
-
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
-Recurrent, likely related to hypertensive crisis.
-Blood pressure and volume status improved. Primary treatment will be aggressive blood pressure control.
-Continue current doses of sacubitril-valsartan and spironolactone.
#Acute on chronic anemia
-Status-postcardiac catheterization with retrograde dissection.
-No groin hematoma, but significant left femoral bruit auscultated with palpable thrill. Femoral US negative for pseudoaneurysm/hematoma.
-Hematology involved, suspect chronic Fe deficieny and reactive thrombocytosis. Parenteral Fe started. Prior myelofibrosis workup negative.
-Continue to monitor H/H.
-Non-contrast CT abdomen/pelvis to evaluate for hidden/RP hematoma (may not be seen on US) was negative for RP bleed.
#Hypertension
-Chronic, prone to hypertensive emergency.
-I suspect we are under treating her chronic hypertension. There is a 30+ mmHg gradient in the right arm, 20-25 mmHg in the left arm. She has severe LE PAD which will also limit validity of NIBP in the legs.
-Continue sacubitril-valsartan--- increase now to 49/51mg BID 05/14/24
-continue spironolactone.
- 05/13/24 Change metoprolol to carvedilol 12.5 mg BID and monitor.
-Our ultimate goal should be a NIBP around 100 mmHg.
-we discussed the appropriate calibration of home readings she will add 25mmHg to her systolic value.
#CAD
-Chronic, stable.
-There is a stable, densely calcified, non-obstructive 60% ostial LCx lesion (iFR = 0.94).
-Continue aspirin and atorvastatin.
-Change metoprolol to carvedilol as above.
#Leukocytosis
-Acute.
-Currently on droplet precautions; workup and management as per primary team.
-SARS-CoV-2 negative.
#LBBB
-Chronic, stable.
Subjective/Interval History:
she is feeling well and anxious for discharge
DATA:
Left femoral Duplex US, 05/12/2024:
IMPRESSION:
Unremarkable duplex examination of the left groin.
No hematoma, pseudoaneurysm, or arteriovenous fistula.
Right femoral Duplex US, 05/12/2024:
IMPRESSION:
Unremarkable duplex examination of the right groin.
No hematoma, pseudoaneurysm, or arteriovenous fistula.
TTE, 05/12/2024:
CONCLUSIONS
Moderately reduced left ventricular systolic function. Global hypokinesis with
severe hypokinesis of the basal to mid septal decker and basal to mid inferior
decker.
Left ventricular ejection fraction is 35-40%.
Stage I diastolic dysfunction suggestive of abnormal relaxation.
Normal right ventricular size and function.
Mild aortic regurgitation.
Compared to the prior images on 12/30/2023 the EF looks slightly worse. The last
reported ejection fraction was 40%, today is 35 to 40%.
Cardiac/renal/peripheral catheterization, 05/12/2024:
CONCLUSIONS:
1. Right dominant circulation with luminal irregularities in the entire coronary tree as well as a densely calcified, nonocclusive 60% lesion in the ostium of the circumflex (IFR = 0.94).
2. Mild suprarenal aortic dilation with no evidence of renal artery stenosis.
3. Significant PAD with an 80% stenosis in the right proximal external iliac artery and a mid 50% lesion in the more distal right external iliac artery, a 50% lesion in the distal left external iliac artery and a 50-60% lesion in the left common
femoral artery.
4. 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
Physical Exam
Vital Signs/Labs
Vital Signs
Temp Pulse Resp BP Pulse Ox
98.1 F 66 20 121/59 93
05/15/24 11:17 05/15/24 12:00 05/15/24 11:17 05/15/24 11:22 05/15/24 12:03
05/14/24 05/15/24 05/16/24
06:59 06:59 06:59
Actual Weight 46 kg 46.7 kg
05/15/24 05:37
05/14/24 04:21
Magnesium 1.9 mg/dl (1.6-2.3) 05/14/24 04:21
Triglycerides 82 mg/dl (10-149) 05/12/24 04:25
LDL Cholesterol, Calc 49 mg/dl 05/12/24 04:25
VLDL Cholesterol, Calc 16 mg/dl (0-30) 05/12/24 04:25
HDL Cholesterol 37 mg/dl 05/12/24 04:25
05/11/24
09:36
[id number] Pept [id number]
Physical Exam
Constitutional: No acute distress
Cardiovascular: Rhythm & rate is regular, Pedal edema is absent, JVD pressure is normal, Systolic murmur absent and Diastolic murmur absent
Respiratory: Respiratory effort normal, Lungs clear to auscul., Wheeze Absent, Crackles Absent and Rhonchi Absent
Neuro/Psych: AO x 3
Data Reviewed
-
Date of Service: May 15, 2024
--- NOTE | 2024-05-15 14:49 | PTCARENOTE ---
Discharge instructions read to patient. Pt verbalized understanding. IV and Tele removed. Patient left with belongings from room, educational material, and scripts sent to pharmacy. Patient left via wheelchair with staff member.
--- NOTE | 2024-05-16 09:45 | W.HF.CON ---
Heart Failure
- LV Function
Left ventricular function study result: LV Ejection fraction >35% - 40%
Ejection Fraction Percentage: 35-40
- ARNI
Patient already on ARNI: Yes
- ACEI/ARB
Patient already on ACEI/ARB: No
Heart Failure ACEI/ARB Not Indicated: Patient ordered/on ARNI
- Beta Teagan
Patient already on Evidence Based Beta Teagan: Yes
- Mineralocorticord Receptor Antagonist
Patient already on MRA: Yes
- SGLT-2 Inhibitor
Patient already on SGLT-2 Inhibitor: No
Heart Failure SGLT-2 Inhibitor Contraindication: Patient Refusal
- NYHA CHF Classification
NYHA CHF Classification Level: Class III - Symptoms w/ min exertion, interferes w/ nml daily activity
- ACC/AHA Stage
ACC/AHA Stage: Stage C: Symptomatic Heart Failure
== END 2024-05-15 14:52 | disposition home or self-care (01) | DRG 286 ==
LOC: IVU 11:44
PROVIDERS: Internal Medicine; Internal Medicine Cardiovascular Disease; Nurse Practitioner Acute Care; Physician Assistant Medical; ADMITTING PHYSICIAN Family Medicine; CONSULT PHYSICIAN Internal Medicine Cardiovascular Disease; CONSULT PHYSICIAN Internal Medicine Hematology & Oncology; EMERGENCY PHYSICIAN Emergency Medicine; FAMILY PHYSICIAN Emergency Medicine
PROC: 5A09357 Assistance with Respiratory Ventilation, Less than 24 Consecutive Hours, Continuous Positive Airway Pressure (ICD-10-PCS; 2024-05-11)
PROC: B211YZZ Fluoroscopy of Multiple Coronary Arteries using Other Contrast (ICD-10-PCS; 2024-05-11)
PROC: 4A023N8 Measurement of Cardiac Sampling and Pressure, Bilateral, Percutaneous Approach (ICD-10-PCS; 2024-05-11)
PROC: 4A033BC Measurement of Arterial Pressure, Coronary, Percutaneous Approach (ICD-10-PCS; 2024-05-11)
DX: I11.0 Hypertensive heart disease with heart failure (principal); I50.23 Acute on chronic systolic (congestive) heart failure; J96.01 Acute respiratory failure with hypoxia; I77.72 Dissection of iliac artery; I47.19 Other supraventricular tachycardia; R65.10 Systemic inflammatory response syndrome (SIRS) of non-infectious origin without acute organ dysfunction; E87.0 Hyperosmolality and hypernatremia; I16.1 Hypertensive emergency; R64 Cachexia; Z68.1 Body mass index [BMI] 19.9 or less, adult; I25.10 Atherosclerotic heart disease of native coronary artery without angina pectoris; K21.9 Gastro-esophageal reflux disease without esophagitis; E78.00 Pure hypercholesterolemia, unspecified; D50.9 Iron deficiency anemia, unspecified; I44.7 Left bundle-branch block, unspecified; I42.8 Other cardiomyopathies; D75.839 Thrombocytosis, unspecified; R74.01 Elevation of levels of liver transaminase levels; D72.829 Elevated white blood cell count, unspecified; K27.9 Peptic ulcer, site unspecified, unspecified as acute or chronic, without hemorrhage or perforation; I70.202 Unspecified atherosclerosis of native arteries of extremities, left leg; E87.6 Hypokalemia; Z11.52 Encounter for screening for COVID-19; Z87.891 Personal history of nicotine dependence; Z79.82 Long term (current) use of aspirin; Z79.899 Other long term (current) drug therapy; Z82.49 Family history of ischemic heart disease and other diseases of the circulatory system; Z90.3 Acquired absence of stomach [part of]
CPT/HCPCS: 51702; 71045; 74176; 80048; 80053; 80061; 81003; 81015; 82248; 82728; 82805; 83540; 83550; 83735; 83880; 84145; 84484; 85025; 85027; 85045; 85347; 86850; 86900; 86901; 87040; 87502; 87811; 93005; 93306; 93458; 93799; 93926; 94640; 94660; 96365; 96366; 96375; 97116; 97162; 99291; C1769; C1894; Q9967

== ENCOUNTER 2024-06-08 23:25 | Inpatient (IN) | payer OTHER, SELFPAY ==
[2024-06-08] VITALS (16 sets, daily range): BP systolic 119–202; BP diastolic 62–111; PULSE 2–101; BMI 16.8
[2024-06-08] MEDS: DUONEB 3 ML INH (22:01)
[2024-06-08] MEDS: SOLU-MEDROL PF 125 MG IV (22:02)
[2024-06-08] MEDS: NITROGLYCERIN PREMIX 250 IV (22:03)
[2024-06-08 22:05] LABS: % Basophils 0.5 % (0-2); % Eosinophils 3.2 % (0-6); % Immature Granulocytes 0.3 % (0-0.5); % Lymphocytes 27.3 % (20.5-51.1); % Neutrophils 60.7 % (42.2-75.2); Absolute Basophils 0.1 10^3/uL (0-0.2); Absolute Eosinophils 0.4 10^3/uL (0-0.7); Absolute Lymphocytes 3.6 10^3/uL (1.2-3.4); Absolute Monocytes 1.1 10^3/uL (0.1-0.6); Absolute Neutrophils 8.1 10^3/uL (1.4-6.5); Hematocrit 37.3 % (37.0-47.0); Hemoglobin 10.1 g/dL (12.0-16.0); Mean Corp Hgb Conc. 27.1 g/dL (33.0-37.0); Mean Corpuscular Hgb 21.3 pg (27.0-31.0); Mean Corpuscular Volume 78.7 fL (81.0-99.0); Nucleated Red Blood Cells % 0 %; Red Blood Cell Count 4.74 10^6/uL (4.20-5.40); Red Cell Dist. Width 22.7 % (11.5-14.5); White Blood Cell Count 13.3 10^3/uL (4.8-10.8)
[2024-06-08 22:12] LABS: INR 1.27; PT 15.9 Sec (11.4-14.6)
[2024-06-08 22:19] LABS: ALT (SGPT) 21 U/L (0-35); AST (SGOT) 44 U/L (14-36); Albumin 3.6 g/dl (3.5-5.0); Alkaline Phosphatase 157 U/L (38-126); Blood Urea Nitrogen 16 mg/dl (7-17); Calcium 9.2 mg/dl (8.4-10.2); Carbon Dioxide 18 mmol/L (22-30); Chloride 106 mmol/L (98-107); Glucose 183 mg/dl (70-99); Potassium 4.8 mmol/L (3.5-5.1); Sodium 145 mmol/L (135-145); Total Bilirubin 0.5 mg/dl (0.2-1.3); Total Protein 6.6 g/dl (6.3-8.2); eGFR > 60.00
[2024-06-08 22:20] LABS: Lactic Acid 7.5 mmol/L (0.7-2.0)
[2024-06-08] MEDS: LASIX 40 MG IV (22:22)
[2024-06-08 22:25] LABS: Anisocytosis 2+; Burr Cells 2+; Hypochromasia 3+; Normal RBC Morphology No; Ovalocytes 1+
[2024-06-08 22:29] LABS: NT-proBNP 15800 pg/ml; Troponin I < 0.012 ng/ml
[2024-06-08 22:41] LABS: B.E. -7.9 mmol/L; HCO3 19.3 mmol/L (21-28); O2 Saturation % 97.7 % (94-98); PCO2 46 mmHg (32-35); PO2 82 mmHg (83-108); pH 7.23 (7.35-7.45)
--- NOTE | 2024-06-08 22:41 | ED.GENMED ---
History of Present Illness
General
Chief Complaint: Breathing Problem
Source: patient
Exam Limitations: none
Time Seen by Provider: 06/08/24 21:59
Nursing documentation reviewed up to this point in time: agreed with
History of Present Illness
History of Present Illness:
73-year-old female with a past medical history of COPD, hypertension, hyperlipidemia, CHF, history of partial gastrectomy who presents to the ER with her for evaluation of respiratory distress. Patient was watching the [employer] game after
dinner tonight ( and she had said she had meatloaf, mashed potatoes, gravy for dinner) rather abrupt onset of shortness of breath. She currently complains of severe shortness of breath. She denies chest pain. Was reportedly in her normal
state of health prior to onset. Rest of history somewhat limited by acuity of patient's illness. She has been admitted multiple times in the past for this according to her including history of prior intubation.
Past History
Past History
ED Past Medical History: CAD, GERD, HTN, Hypercholesterolemia and Other (Iron deficiency anemia, peptic ulcer disease)
ED Past Surgical History: Cholecystectomy and Other (Partial gastrectomy)
Social History
Tobacco: Smoker
Alcohol: None
Drug: None
Personal:
Living: with family
Review of Systems
Review of Systems
Unable to obtain full review of systems at this time due to: due to acuity
All Other Systems: Not applicable
Phy Exam
Physical Exam
Physical Exam:
General: Awake, alert, anxious appearing and in severe respiratory distress; cachectic
Head: Normocephalic, atraumatic
Eyes: Conjunctiva normal
Throat: Airway intact, handling secretions
Neck: Trachea midline, bilateral JVD
Lungs: Patient is in severe respiratory distress with marked tachypnea, hypoxia, increased work of breathing; patient has bilateral wheezing throughout all lung krueger
Heart: Regular rate and rhythm, no murmurs, gallops, or rubs
Neuro: No gross deficits
Skin: no rash
Extremities: No edema in extremities, warm and well-perfused
Scores
Heart Failure Risk
Heart Failure Risk Score: Not Applicable
Heart Score for Chest Pain Patients
STEMI patient?: Not applicable
Withdrawal Assessment of Alcohol
Withdrawal Assessment Completed?: Not applicable
Course
Orders/Labs/Results
Orders:
Orders
06/08/24 21:56
Electrocardiogram (*1) Urgent
Reason for Study: Other
Other Reason for Exam: Respiratory Distress
Cardiac Monitoring- Treatment ONCE
EKG- Treatment ONCE
IV Insert/Care/Rem.- Treatment PRN
Ipratropium/Albuterol Sulfate [Duoneb] 3 ml .ROUTE .STK-MED ONE
CR Chest Portable - 1 View Urgent
Comment:
Reason For Exam: respiratory distress
Reason Study Needs to be Portable: Patient Unstable
O2 Therapy [RESP] Urgent
Titrate/Wean O2 to maintain O2 sat greater than (%): 93
Special Instructions: TO MAINTAIN CONTINUOUS O2 SATS >/= 93%
Pulse Ox/cont/shift [RESP] Urgent
Quantity: 1
Special Instructions: continuous pulse ox
06/08/24 21:58
Complete Blood Count/With Diff Urgent
Comprehensive Metabolic Panel Urgent
Lactic Acid Q4H
Comment: WITH 1ST SET OF BLOOD CULTURES,CANCEL 2ND LACTIC ACID IF FIRST <2
NT-proBNP Urgent
Prothrombin Time Urgent
Troponin I Urgent
MethylPREDNISolone PF [Solu-Medrol Pf] 125 mg .ROUTE .STK-MED ONE
06/08/24 22:00
Ipratropium/Albuterol Sulfate [Duoneb] 3 ml INH R NOW ONE
06/08/24 22:02
MethylPREDNISolone PF [Solu-Medrol Pf] 125 mg IV NOW STA
06/08/24 22:15
Nitroglycerin 100 mg/250 ml [Nitroglycerin Premix] 100 mg in 250 ml IV PER PROTOCOL
Initial dose in mcg/min, then titrate:: 10
Titrate to keep:: SBP < 160 mmHg
Titrate by mcg/min:: 5 mcg/min, may increase by 10 mcg/min if dose > 20 mcg/min
Frequency of titrations (minutes):: every 3-5 minutes
Maximum dose in mcg/min:: 200
Begin to taper infusion when:: Remained at goal for 2hrs
Taper by mcg/min:: 5 mcg/min
Frequency of taper (minutes) if patient maintains goal:: 30
Taper to off?: Yes
If infusion off & no longer maintaining goal:: Contact Provider
06/08/24 22:19
Furosemide [Lasix] 40 mg .ROUTE .STK-MED ONE
06/08/24 22:21
Furosemide [Lasix] 40 mg IV ONCE ONE
06/08/24 22:32
ABG [Arterial Blood Gas] Urgent
%Oxygen/Room Air: 100
06/09/24 02:00
Lactic Acid Q4H
Comment: WITH 1ST SET OF BLOOD CULTURES,CANCEL 2ND LACTIC ACID IF FIRST <2
Abnormal Lab Results
06/08/24 06/08/24
21:58 22:32
WBC 13.3 H 10^3/uL
(4.8-10.8)
Hgb 10.1 L g/dL
(12.0-16.0)
MCV 78.7 L fL
(81.0-99.0)
MCH 21.3 L pg
(27.0-31.0)
MCHC 27.1 L g/dL
(33.0-37.0)
RDW 22.7 H %
(11.5-14.5)
Absolute Neuts (auto) 8.1 H 10^3/uL
(1.4-6.5)
Absolute Lymphs (auto) 3.6 H 10^3/uL
(1.2-3.4)
Absolute Monos (auto) 1.1 H 10^3/uL
(0.1-0.6)
PT 15.9 H Sec
(11.4-14.6)
pH 7.23 L
(7.35-7.45)
pCO2 46 H mmHg
(32-35)
pO2 82 L mmHg
(83-108)
HCO3 19.3 L mmol/L
(21-28)
Carbon Dioxide 18 L mmol/L
(22-30)
Glucose 183 H mg/dl
(70-99)
Lactic Acid 7.5 H* mmol/L
(0.7-2.0)
AST 44 H U/L
(14-36)
Alkaline Phosphatase 157 H U/L
(38-126)
06/08/24 21:58
06/08/24 21:58
Vital Signs
Initial and Last Documented VS:
Initial Vital Signs
Pulse Resp Pulse Ox
78 10 54
06/08/24 21:52 06/08/24 21:52 06/08/24 21:52
Last Documented Vital Signs
Temp Pulse Resp BP Pulse Ox
36.3 C 96 29 160/86 91
06/08/24 22:43 06/08/24 22:52 06/08/24 22:52 06/08/24 22:52 06/08/24 22:52
MDM/Problems Addressed
Differential Diagnosis Includes:
Flash pulmonary edema/hypertensive crisis, CHF, COPD exacerbation
MDM/Problems Addressed:
73-year-old female presents to the ER with her in severe respiratory distress�started rather abruptly this evening shortly after dinner�it sounds like she had a quite salty meal. Severely hypertensive to 200/110 on arrival, tachypneic,
hypoxic, severely increased work of breathing. History seems most consistent with flash pulmonary edema which patient has had in the past. She does have COPD history and wheezing which I suspect is a cardiac wheeze however will treat with
Solu-Medrol and DuoNeb. Respiratory paged to bedside and placed patient on BiPAP. Patient started on nitroglycerin infusion and given multiple boluses for aggressive blood pressure control. Stat chest x-ray shows pulmonary edema. Given 40 mg IV
Lasix. Fortunately patient responded well to these measures and respiratory status stabilized. Chest x-ray shows pulmonary edema. Usual labs sent off.
Labs reviewed: CBC shows leukocytosis, CMP shows metabolic acidosis and she had an elevated lactate which likely accounts for this�suspect lactate elevation in the setting of increased work of breathing. proBNP elevated. ABG shows acidosis likely
mixed picture with degree of respiratory acidosis and metabolic acidosis as above. Case discussed with hospitalist for admission.
Chronic conditions affecting care:
Hypertension, CHF, COPD
Acute Exacerbation and/or Progression of Chronic Illness:
Acute COPD�managed with DuoNeb and steroid
Acute CHF�managed with Lasix
Acute hypertensive crisis�managed with nitroglycerin
Acute Exacerbation and/or Progression of Chronic Illness: HTN and COPD
*Radiology
Radiology exam reviewed: preliminary read by ED provider (Pulmonary edema noted on my independent review) and radiology read reviewed
*Pulse Oximetry
Patient hypoxic: yes
*EKG
Interpreted by ED Provider?: Yes
Heart Rate: 101
Rate: tachycardiac
Rhythm: sinus
[place]: normal axis
QRS Pattern: left bundle branch block
Ischemia: non-specific ST changes
*Critical Care Note
Total Time (30-74mins, 75-104mins- exclusive of procedures): 47
comment:
Critical care statement: A total of 47 minutes of critical care time was provided for this patient. This includes management of unstable vital signs, evaluation of the patient at bedside, frequent reassessment, discussion with
consultants/hospitalist, and review of pertinent medical records. This time was separate from time utilized to perform any aforementioned documented procedures
Data Reviewed
Source: patient, records and family
Patient Management
Discussion with other providers: Hospitalist (Discussed with hospitalist)
Escalation/DeEscalation of care consider admission/obs:
Admission indicated
ED Attending Note
-
Portions of this chart may have been created with voice recognition software.� Occasional wrong word or��sound alike� substitutions may have occurred due to the inherent limitations of voice recognition software.
Discharge Plan
Departure
Patient Disposition: Admit
Date of Disposition: 06/08/24
Time of Disposition: 22:46
Admit to doctor: Henry
Presentation/result/management discussed w/ accepting MD/DO: Hospitalist
Discharge Problem:
Acute respiratory failure with hypoxia and hypercapnia, Flash pulmonary edema, Hypertensive crisis
Prescriptions:
No Action
pantoprazole 40 MG tablet,delayed release (DR/EC)
40 mg PO DAILY
aspirin 81 mg Tablet,Delayed Release (Dr/Ec)
81 mg PO DAILY
ferrous sulfate 142 mg (45 mg iron) Tablet Extended Release
142 mg PO DAILY
pregabalin 25 mg Capsule
50 mg PO BID
Patient Comments:
05/11/24: last filled 04/19/24, 90 tabs for 30 days from [facility]workmen comp [facility]
atorvastatin 20 mg tablet
20 mg PO DAILY
spironolactone 25 mg Tablet
12.5 mg PO DAILY
polyethylene glycol 3350 [HealthyLax] 17 gram powder in packet
17 g PO DAILYPRN PRN (Reason: constipation)
carvedilol 12.5 mg Tablet
12.5 mg PO BID Qty: 60 0RF
Entresto 49-51 mg Tablet
1 tab PO BID Qty: 60 0RF
Referrals:
Anitra Aguilera DO [Family Provider] -
Interventions
Interventions:
*Risk Screen - Suicide Last Done: 06/08/24 22:27
*General Assessment Last Done: 06/08/24 22:27
*Neglect/Abuse Screening Last Done: 06/08/24 22:27
*ED COVID-19 Vaccine History Last Done: 06/08/24 22:27
ED- Cardiac Assessment Last Done: 06/08/24 22:31
ED- Pulmonary Assessment Last Done: 06/08/24 22:31
Discharge Date and Time
Print Language: ARMENIAN
--- NOTE | 2024-06-08 23:41 | HPS.HSE ---
Family Physician
-
Family Physician: Anitra Aguilera
Chief Complaint
-
SOB
History of Present Illness
Patient is a 73y F with PMH significant for HFrEF, uncontrolled hypertension and iron deficiency who presents to ED complaining of SOB. Patient states that she was feeling well today until this evening when she abruptly developed shortness of
breath. Patient states that she had 'low salt' canned chicken soup for lunch today. She had homemade meatloaf and mashed potatoes which she states had no salt in it (made with 'salt substitute'). This evening she developed abrupt onset of
shortness of breath. She states that she felt mild diaphoretic. She denies any chest pain or palpitations.
Patient denies any recent complaints of fevers / chills, sore throat, cough, etc.
Patient denies any medication changes since her last hospitalization (05/11 - 05/15).
She denies any gradual weight gain, LE edema, progressive dyspnea, etc.
Patient had initial BP in the ED of 202/110. She was started on BiPAP and IV NTG gtt in the ED. She currently feels much improved from admission.
Medical History
Past Medical History
Past Medical History: Reports Other
Additional Past Medical History:
Chronic HFrEF
Nonischemic Cardiomyopathy
ASCVD
Chronic LBBB
GERD / PUD
Iron Deficiency Anemia
Multidrug Resistant Hypertension
Past Surgical History: Reports Other
Additional Past Surgical History:
Cholecystectomy
Partial Stomach Resection
Social History
Tobacco: Former Smoker (Quit smoking 4 years ago. > 50 pack years total use.)
Alcohol: None
Drug: None
Family History
Family History: Not pertinent
Allergies / Home Medications
Allergies reflects when Allergies were last updated in [email or web address].
Home Medications with original date entered in [email or web address]
Allergy/Medication List:
Allergies
Allergy/AdvReac Type Severity Reaction Status Date / Time
No Known Allergies Allergy Verified 06/08/24 21:55
Home Medications
pantoprazole 40 mg tablet,delayed release 40 mg PO DAILY Gastrointestinal Issue 01/23/23
aspirin 81 mg tablet,delayed release 81 mg PO DAILY Heart Disease/Condition 10/08/23
atorvastatin 20 mg tablet 20 mg PO DAILY High Cholesterol 10/08/23
ferrous sulfate 142 mg (45 mg iron) tablet,extended release 142 mg PO DAILY Supplement 10/08/23
pregabalin 25 mg capsule 50 mg PO BID Neurological Condition 10/08/23
polyethylene glycol 3350 17 gram oral powder packet (HealthyLax) 17 g PO DAILYPRN PRN constipation 05/11/24
spironolactone 25 mg tablet 12.5 mg PO DAILY Fluid Retention/Swelling 05/11/24
carvedilol 12.5 mg tablet 12.5 mg PO BID #60 tabs 05/15/24
sacubitril 49 mg-valsartan 51 mg tablet (Entresto) 1 tab PO BID #60 tabs 05/15/24
Review of Systems
-
History Source: Patient
A 12 point ROS was completed and negative except as noted: Yes
Constitutional: Denies Fever or Chills
EENT: Denies Sore Throat
Respiratory: Reports Trouble Breathing; Denies Cough
Cardiac: Reports Diaphoresis; Denies Chest Pain or Palpitations
Abdomen/GI: Denies Abdominal Pain, Nausea, Vomiting or Diarrhea
: Denies Dysuria, Frequency or Flank Pain
Musculoskeletal: Denies Joint Pain or Edema
Neurological: Denies Dizzy or Headache
Psych: Denies Depression or Anxiety
Physical Exam
Vital Signs
Vital Signs
Temp Pulse Resp BP Pulse Ox
97.3 F 86 25 119/69 97
06/08/24 22:43 06/08/24 23:30 06/08/24 23:30 06/08/24 23:30 06/08/24 23:30
Physical Exam
General: Other (73y F in no acute distress at present. BiPAP mask in place.)
HEENT: Moist mucous membranes, PERRLA and Other (No JVD.)
Respiratory: Other (Decreased BS throughout. Few scattered rales.)
Cardiac: S1/S2, Regular Rhythm and Murmur (II/ YOANNA)
GI: Soft, Non Tender, Non Distended and Normal Bowel Sounds
Musculoskeletal: No Clubbing, No Cyanosis and No Edema
Neuro: AO x 3
Laboratory Results
-
06/08/24 21:58
06/08/24 21:58
Laboratory Results
PT 15.9 Sec (11.4-14.6) H 06/08/24 21:58
INR 1.27 06/08/24 21:58
pH 7.23 (7.35-7.45) L 06/08/24 22:32
pCO2 46 mmHg (32-35) H 06/08/24 22:32
pO2 82 mmHg (83-108) L 06/08/24 22:32
HCO3 19.3 mmol/L (21-28) L 06/08/24 22:32
Lactic Acid 7.5 mmol/L (0.7-2.0) H* 06/08/24 21:58
Total Bilirubin 0.5 mg/dl (0.2-1.3) 06/08/24 21:58
AST 44 U/L (14-36) H 06/08/24 21:58
ALT 21 U/L (0-35) 06/08/24 21:58
Alkaline Phosphatase 157 U/L (38-126) H 06/08/24 21:58
Troponin I < 0.012 ng/ml 06/08/24:58
Impression/Plan
-
A/P: Patient is a 73y F with PMH significant for HFrEF, hypertension and prior instances of flash pulmonary edema who presents to ED complaining of abrupt onset of SOB this evening.
Flash Pulmonary Edema
Acute Hypoxemic Respiratory Failure secondary to the above
- Admit for further evaluation and treatment.
- Continue IV NTG infusion, BiPAP support, etc.
- Initial dose of IV Lasix given in the ED - will hold on further doses for now given marked clinical improvement.
- Follow for any new / worsening symptoms.
- Wean off of BiPAP as able.
- Treat underlying / contributing issues as noted below.
Acute on Chronic HFrEF
Nonischemic Cardiomyopathy
Hypertensive Emergency
- Symptoms likely triggered by uncontrolled systemic hypertension - versus pulm hypertension / COPD.
- BP initially 202/110 on arrival today.
- NTG for now. Continue home BP medications and adjust as needed for improved BP control.
- Note that on prior visits it was commented that her BP measurements are likely UNDERestimating her degree of hypertension.
- Cardiology evaluation for additional recommendations / med adjustments /etc.
- Continue Entresto, spironolactone, etc.
- Echo done recently showed LVEF 35-40% and hypokinesis.
Lactic Acidosis
- LA on admission was 7.5.
- Likely due to decreased CO / perfusion due to flash pulmonary edema / marked systemic hypertension.
- Treat hypoxemia, HTN as noted above.
- Follow serial lactate levels for improvement.
ASCVD
- Recent cath showed non-obstructing coronary disease.
- No complaints of chest pain.
- Continue current CV med regimen.
Suspected COPD
- Patient with long history of smoking in excess of 50 pack years. Having quit only 4 years ago.
- Family reports less severe instances of dyspnea triggered by smells / inhalation / etc.
- No formal dx of COPD.
- Steroids given in the ED this evening.
- Continue DuoNebs ATC and albuterol PRN.
- Consider formal Pulmonary evaluation - inpatient or outpatient.
Iron Deficiency Anemia
- Hgb significantly improved from prior values.
- Continue daily iron supplementation and follow CBC.
DVT Prophylaxis: SCDs
Code Status: Full
[2024-06-09] VITALS (27 sets, daily range): BP systolic 109–147; BP diastolic 54–95; PULSE 2–66; BMI 16.0; BMI 16.2; BMI 16.3
--- NOTE | 2024-06-09 00:35 | PTCARENOTE ---
Patient arrives from ED on bipap. Daughter bedside. Patient transferred to bed, oriented to room. call fajardo within reach. Patient has no complaints, states she is feeling better. Oxygen saturation 98%. Patient off nitro gtt. SBP in 120-130's. Repeat
labs drawn. See flowsheet for full assessment and vital signs.
[2024-06-09 01:17] LABS: Lactic Acid 2.3 mmol/L (0.7-2.0)
[2024-06-09 01:27] LABS: Troponin I 0.028 ng/ml
[2024-06-09 06:44] LABS: Hematocrit 32.3 % (37.0-47.0); Hemoglobin 9.3 g/dL (12.0-16.0); Lactic Acid 1.1 mmol/L (0.7-2.0); Mean Corp Hgb Conc. 28.8 g/dL (33.0-37.0); Mean Corpuscular Hgb 20.8 pg (27.0-31.0); Mean Corpuscular Volume 72.1 fL (81.0-99.0); Mean Platelet Volume 9.9 fL (7.4-10.4); Platelet Count 533 10^3/uL (130-400); Red Blood Cell Count 4.48 10^6/uL (4.20-5.40); Red Cell Dist. Width 22.2 % (11.5-14.5); White Blood Cell Count 5.6 10^3/uL (4.8-10.8)
[2024-06-09 06:52] LABS: Blood Urea Nitrogen 22 mg/dl (7-17); Calcium 8.5 mg/dl (8.4-10.2); Carbon Dioxide 27 mmol/L (22-30); Chloride 103 mmol/L (98-107); Estimated Creatinine Clearance 51 ml/min; Glucose 130 mg/dl (70-99); Sodium 145 mmol/L (135-145); eGFR > 60.00
[2024-06-09 06:54] LABS: Troponin I 0.042 ng/ml
[2024-06-09] MEDS: DUONEB 3 ML INH ×4 (07:13→19:26)
[2024-06-09] MEDS: ENTRESTO 49 MG/51 MG 1 TAB PO (07:50)
[2024-06-09] MEDS: ASPIR LOW (ENTERIC COATED) 81 MG PO (07:50)
[2024-06-09] MEDS: LYRICA 50 MG PO ×2 (07:50→21:27)
[2024-06-09] MEDS: ALDACTONE 12.5 MG PO (07:50)
[2024-06-09] MEDS: COREG 12.5 MG PO ×2 (07:50→21:27)
[2024-06-09] MEDS: LIPITOR 20 MG PO (07:51)
--- NOTE | 2024-06-09 08:22 | CON.CAR ---
Consultation
Consultation Request
Date/Time Consultation Requested: 06/09/24799
Date/Time Consultation Performed: 06/09/24799
Requesting Provider: hospitalist
Performing Provider: Dr Caba
Reason for Consultation: acute left heart failure
Medical History
-
History of Present Illness:
73-year-old female with chronic HFrEF/NICM (EF 40%), non-obstructive CAD (60% LCX cath 2022), hypertension, LBBB, PSVT, PUD s/p Billroth II procedure, iron deficiency anemia .patient said previous hospitalizations with heart failure/flash pulmonary
edema suspected be related to hypertension. Last catheterization had 60% left circumflex stenosis which was felt to be nonflow limiting. Patient presents with shortness of breath and is admitted with heart failure. Patient was in her usual state
of health and states she has been compliant with medical therapy after watching the [employer]ER[employer] game she got up to walk around but if she was short of breath and had increased shortness of breath prompting her to go to the ER. Chest x-ray suggestive
of CHF patient given additional diuretic and admitted to ICU.
Patient does state that she had soup yesterday but had low sodium [place] soup she has had this twice this week I did inform her that although it is a lower sodium it is 25% less sodium and still has a significant amount of sodium it has about 660
mg of sodium per serving and I suspect she had 2 servings at a time so over 1300 mg of sodium
Past medical history
nonischemic cardiomyopathy
Heart failure with reduced ejection fraction
Hypertension
Coronary artery disease including 60% nonflow limiting stenosis of the left circumflex based on catheterization 05/11/2024
Left bundle branch block
Past surgical history
Cholecystectomy
Social History
Tobacco: Former Smoker
Living: Alone
Family History
Family History: CAD
Allergies / Home Medications
Allergy/AdvReac Type Severity Reaction Status Date / Time
No Known Allergies Allergy Verified 06/08/24 21:55
�Medication �Instructions �Recorded �Confirmed �Type
pantoprazole 40 mg tablet,delayed 40 mg PO DAILY Gastrointestinal 01/23/23 06/08/24 History
release Issue
aspirin 81 mg tablet,delayed 81 mg PO DAILY Heart 10/08/23 06/08/24 History
release Disease/Condition
atorvastatin 20 mg tablet 20 mg PO DAILY High Cholesterol 10/08/23 06/08/24 History
ferrous sulfate 142 mg (45 mg 142 mg PO DAILY Supplement 10/08/23 06/08/24 History
iron) tablet,extended release
pregabalin 25 mg capsule 50 mg PO BID Neurological Condition 10/08/23 06/08/24 History
polyethylene glycol 3350 17 gram 17 g PO DAILYPRN PRN constipation 05/11/24 06/08/24 History
oral powder packet (HealthyLax)
spironolactone 25 mg tablet 12.5 mg PO DAILY Fluid 05/11/24 06/08/24 History
Retention/Swelling
carvedilol 12.5 mg tablet 12.5 mg PO BID #60 tabs 05/15/24 06/08/24 Rx
sacubitril 49 mg-valsartan 51 mg 1 tab PO BID #60 tabs 05/15/24 06/08/24 Rx
tablet (Entresto)
Review of Systems
-
All other systems: Negative unless noted
Physical Exam
Vital Signs
Temp Pulse Resp BP Pulse Ox
98 F 55 18 124/69 98
06/09/24 07:40 06/09/24 07:15 06/09/24 07:15 06/09/24 07:00 06/09/24 07:15
Lab Results
06/09/24 06:13
06/09/24 06:13
Troponin I 0.042 ng/ml H* D 06/09/24 06:13
Xiv-X-Ycqehismfhc Pept 60622 pg/ml 06/08/24 21:58
Physical Exam
General: Well Developed, Well Nourished and No Apparent Distress
HEENT: Normocephalic, Anicteric and Other (No mass, no lymphadenopathy no JVD detected)
Respiratory: Other (No wheezes rales or rhonchi)
Cardiac: Regular Rhythm
GI: Soft, Non Tender, Non Distended, Normal Bowel Sounds and Organomegaly (None detected)
Musculoskeletal: No Clubbing, No Cyanosis and No Edema
Neuro: Awake
Hematologic/Lymphatic: No Lymphadenopathy
Psych: Calm (Cooperative)
Impression / Plan
-
#Acute on chronic HFmrEF (35-40%) patient with history of flash pulmonary edema on prior admission now again appears with heart failure. Patient has been compliant with medical therapy. Dietary indiscretion and increased salt intake with soup may
be a contributing factor
-Monitor renal function with diuresis
-Continue treatment of hypertension
-Optimize medical therapy for cardiomyopathy.
# Nonischemic cardiomyopathy
-Echocardiogram 05/12/2024 moderately reduced left ventricular function global hypokinesis with severe hypokinesis of the basal to mid septal decker and basal to mid inferior decker ejection fraction 35 to 40%, mild aortic regurgitation
-Continue to optimize GDMT Entresto was just increased to the highest dose on last office visit 05/26/2024. Will place back on Entresto 97/103 twice daily
-Will also review if Farxiga is an option for this patient. This may have already been addressed on last visit.
# troponin 0.042. suspect nonMI troponin related to HF
# Anemia. Noted on prior admission. 9.3 today which is lower than presenting 10.1 but higher than hemoglobin of 8.3 on 05/15/2024. No evidence of acute bleeding continue to monitor
#Hypertension
-Chronic,. Prior history of hypertensive emergency.
-Continue to optimize medical therapy
#CAD
-Last catheterization with calcified, non-obstructive 60% ostial LCx lesion (iFR = 0.94).
-Continue aspirin and atorvastatin.
-Change metoprolol to carvedilol as above.
#LBBB
-Chronic, stable.
#PAD
Data Reviewed
-
EKG: Report Reviewed by me
Medical Tests (Nuc Med, Echo etc): Report Reviewed by me
Labs: Labs Reviewed by me
Old Records: Reviewed (prior ECW notes and last echo)
--- NOTE | 2024-06-09 08:41 | PTCARENOTE ---
pt received from previous rn- aox3, on bipap resting comfortably, lungs diminished. transitioned to 2LNC sats 98%. pt with no complaints at this time. nsr w/ bbb on monitor. turns and repositions self. all safety precautions in place, handy fajardo
within reach.
[2024-06-09] MEDS: LASIX 20 MG IV ×2 (09:34→15:57)
--- NOTE | 2024-06-09 10:41 | CM ---
CM following re: discharger planning.
Discussed in Rounds, reviewed pt's chart, met with pt.
Pt is a 73 year old female, admitted with primary dx of PE. Per Rounds meeting, pt was on Bi-pap at night, transitioned to 2L NC of O2. Pt has no home Oxygen.
Pt reports she lives with and 2 adult sons in a 2SH, 1 step to enter, has 3 supportive children. Pt described herself as independent in all areas [employer]. No DME, VN or SNF history.
PCP: Anitra Aguilera
Pharmacy: [facility].
D/C plan: home with anticipated no needs. Family to transport at discharge.
CM will follow with discharge plan updates as hospitalization progresses
[2024-06-09 12:51] LABS: Lactic Acid 1.5 mmol/L (0.7-2.0)
[2024-06-09 13:07] LABS: Troponin I 0.051 ng/ml
--- NOTE | 2024-06-09 15:27 | W.PN.HOSP.TC ---
Today's Communication/Plan
-
cont iv lasix
wean o2
Assessment / Plan
Assessment / Plan
Physical Exam
General: Well Developed, Well Nourished and No Apparent Distress
HEENT: Normocephalic, Anicteric and Other (No mass, no lymphadenopathy no JVD detected)
Respiratory: Other (No wheezes rales or rhonchi)
Cardiac: Regular Rhythm
GI: Soft, Non Tender, Non Distended, Normal Bowel Sounds and Organomegaly (None detected)
Musculoskeletal: No Clubbing, No Cyanosis and No Edema
Neuro: Awake
Hematologic/Lymphatic: No Lymphadenopathy
Psych: Calm (Cooperative)
A/P: Patient is a 73y F with PMH significant for HFrEF, hypertension and prior instances of flash pulmonary edema who presents to ED complaining of abrupt onset of SOB this evening.
Acute on Chronic HFrEF
Nonischemic Cardiomyopathy
Hypertensive Emergency
- Symptoms likely triggered by uncontrolled systemic hypertension - versus pulm hypertension / COPD.
- BP initially 202/110 on arrival today.
- NTG for now. Continue home BP medications and adjust as needed for improved BP control.
- Cont IV lasix
- Continue Entresto, spironolactone, etc.
- Echo done recently showed LVEF 35-40% and hypokinesis.
#Flash Pulmonary Edema
Acute Hypoxemic Respiratory Failure secondary to the above
- Admit for further evaluation and treatment.
- Off nitro ggt, NIV
- Cont IV lasix
#suspect nonMI troponin related to HF
troponin 0.042
Lactic Acidosis
- LA on admission was 7.5.
- Likely due to decreased CO / perfusion due to flash pulmonary edema / marked systemic hypertension.
- Resolved
ASCVD
- Recent cath showed non-obstructing coronary disease.
- No complaints of chest pain.
- Continue current CV med regimen.
Suspected COPD
- Patient with long history of smoking in excess of 50 pack years. Having quit only 4 years ago.
- Family reports less severe instances of dyspnea triggered by smells / inhalation / etc.
- No formal dx of COPD.
- with significant improvement in bronchospasm with diuretics and understanding EF/clinical symptoms of volume overload- most likely not COPD exacerbation
-f/u pulm outpatient
Iron Deficiency Anemia
- Hgb significantly improved from prior values.
- Continue daily iron supplementation and follow CBC.
DVT Prophylaxis: SCDs
Code Status: Full
Anticipated Discharge: 24 - 48 hours
Subjective/Interval History
-
Date of Service: June 09, 2024
Weaned off noninvasive ventilation, now on nasal cannula
Objective Data
-
Labs:
Laboratory Results
06/09/24
06:13
WBC 5.6
Hgb 9.3 L
Hct 32.3 L
Plt Count 533 H
Sodium 145
Potassium 4.0
Chloride 103
Carbon Dioxide 27
BUN 22 H
Creatinine 0.7
Glucose 130 H
Calcium 8.5
Vital Signs:
Vital Signs
Temp Pulse Resp BP Pulse Ox
98 F 73 16 136/76 97
06/09/24 11:01 06/09/24 15:00 06/09/24 15:00 06/09/24 15:00 06/09/24 15:00
I&O
06/08/24 06/09/24 06/10/24
06:59 06:59 06:59
Intake Total 420 / 420
Output Total 1150 / 1150
Balance -730 / -730
Review of Systems
-
History Source: Patient
All other systems: Not reviewed unless documented
Physical Exam
-
General: Well Developed, No Apparent Distress, Comfortable and Cachectic
HEENT: Normocephalic, Atraumatic and Moist Mucous Membranes
Respiratory: Clear to Auscultation; Negative Wheezes, Rales or Rhonchi
Cardiac: Regular Rhythm and S1/S2
GI: Soft, Nontender and Nondistended
Musculoskeletal: No Clubbing, No Cyanosis, No Edema and Other (muscle atrophy)
Skin: Warm and Dry
Neuro: Awake, Alert and Oriented
Data Reviewed
-
Total Time Spent with Patient (in minutes): 56
Diagnostic Radiology: Image personally visualized and interpreted and Report Reviewed by me
Labs: Labs Reviewed by me
--- NOTE | 2024-06-09 15:59 | PTCARENOTE ---
Addendum entered by Lia Chowdhury RN 06/09/24 16:13:
note entered for 0800
Original Note:
pt received from previous rn- aox3, on bipap resting comfortably, lungs diminished. transitioned to 2LNC sats 98%. pt with no complaints at this time. nsr w/ bbb on monitor. turns and repositions self. 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 neuro wnl. all safety precautions in place, handy fajardo within reach.
[2024-06-09 17:56] LABS: Troponin I 0.052 ng/ml
--- NOTE | 2024-06-09 19:50 | PTCARENOTE ---
Received pt from IMU via wheelchair. Pt ambulated to bed with assist x1. AAOx3. VSS. No complaints of pain. Assessed and oriented to room. Pt verbalized understanding of call fajardo. Call fajardo within close reach. Will continue to monitor.
[2024-06-09] MEDS: ENTRESTO 97 MG/103 MG 1 TAB PO (21:28)
[2024-06-10 03:05] VITALS: BP 117/61
[2024-06-10 06:00] VITALS: BMI 16.2
[2024-06-10] MEDS: DUONEB 3 ML INH ×2 (07:21→11:25)
[2024-06-10 07:44] VITALS: BP 138/82
[2024-06-10 07:46] LABS: Hematocrit 29.3 % (37.0-47.0); Hemoglobin 8.5 g/dL (12.0-16.0); Mean Corpuscular Hgb 21.5 pg (27.0-31.0); Mean Corpuscular Volume 74.2 fL (81.0-99.0); Mean Platelet Volume 10.3 fL (7.4-10.4); Platelet Count 495 10^3/uL (130-400); Red Blood Cell Count 3.95 10^6/uL (4.20-5.40); Red Cell Dist. Width 21.9 % (11.5-14.5); White Blood Cell Count 11.6 10^3/uL (4.8-10.8)
[2024-06-10 08:16] LABS: ALT (SGPT) 20 U/L (0-35); AST (SGOT) 14 U/L (14-36); Albumin 2.9 g/dl (3.5-5.0); Alkaline Phosphatase 186 U/L (38-126); Blood Urea Nitrogen 31 mg/dl (7-17); Calcium 8.7 mg/dl (8.4-10.2); Carbon Dioxide 30 mmol/L (22-30); Chloride 103 mmol/L (98-107); Estimated Creatinine Clearance 51 ml/min; Glucose 84 mg/dl (70-99); Potassium 3.8 mmol/L (3.5-5.1); Sodium 144 mmol/L (135-145); Total Bilirubin 0.2 mg/dl (0.2-1.3); Total Protein 5.7 g/dl (6.3-8.2); eGFR > 60.00
[2024-06-10] MEDS: ASPIR LOW (ENTERIC COATED) 81 MG PO (08:52)
[2024-06-10] MEDS: LIPITOR 20 MG PO (08:52)
[2024-06-10] MEDS: ALDACTONE 12.5 MG PO (08:52)
[2024-06-10] MEDS: LYRICA 50 MG PO (08:52)
[2024-06-10] MEDS: COREG 12.5 MG PO (08:52)
[2024-06-10] MEDS: ENTRESTO 97 MG/103 MG 1 TAB PO (08:52)
[2024-06-10] MEDS: LASIX 20 MG IV (08:53)
--- NOTE | 2024-06-10 10:36 | PN.CDI ---
CDI
- -
CDI:
Physician Documentation Request
Admit Date: 06/08/24 23:25
Dear Doctor Rojelio,
Please review the following and provide your response in the progress notes.
Clinical Indicators:
ED, 06/08
#Physical Exam:
#...General: Awake, alert, anxious appearing and in severe respiratory distress; cachectic
Student Teacher, 06/09
#...BMI < 19 underweight range.
#Pt states she is eating well but has
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
#CBW: 100 lbs 8.493 oz BMI 16.2 underweight range, was 102 lbs (05/15) and 100 lbs (12/29).
Please provide an associated diagnosis related to the BMI, such as:
BMI <19, underweight
Cachectic
Other (please specify)
BMI < or = to 19
Underweight
Weight Loss
Cachectic
Anorexia
Use of terms such as suspected, likely, concern for, or probable (associated with a specific diagnosis that is being evaluated, monitored, or treated as if it exists) are acceptable and can be coded in the inpatient setting, when documented at the
time of discharge.
Thank you,
Katiana Hutchinson RN BSN CCDS
CDI Specialist
please contact via tiger text
Please use your independent medical judgment in providing your response.
[2024-06-10 11:18] VITALS: BP 135/56; O2SAT 94
[2024-06-10 11:31] VITALS: BP 135/56
--- NOTE | 2024-06-10 13:20 | W.PN.HOSP.TC ---
Addendum entered and electronically signed by Vaibhav Serrato MD 06/12/24 16:20:
Underweight
Original Note:
Today's Communication/Plan
-
low Na diet
lasix 20mg daily
bmp in 1 week
cbc f/u with pcp/hematology
Increased entresto
F/u Cards, PCP outpatient
Assessment / Plan
Assessment / Plan
Physical Exam
General: Well Developed, Well Nourished and No Apparent Distress
HEENT: Normocephalic, Anicteric and Other (No mass, no lymphadenopathy no JVD detected)
Respiratory: Other (No wheezes rales or rhonchi)
Cardiac: Regular Rhythm
GI: Soft, Non Tender, Non Distended, Normal Bowel Sounds and Organomegaly (None detected)
Musculoskeletal: No Clubbing, No Cyanosis and No Edema
Neuro: Awake
Hematologic/Lymphatic: No Lymphadenopathy
Psych: Calm (Cooperative)
A/P: Patient is a 73y F with PMH significant for HFrEF, hypertension and prior instances of flash pulmonary edema who presents to ED complaining of abrupt onset of SOB this evening.
Acute on Chronic HFrEF
Nonischemic Cardiomyopathy
Hypertensive Emergency
- Symptoms likely triggered by uncontrolled systemic hypertension - versus pulm hypertension / COPD.
- BP initially 202/110 on arrival today.
- NTG for now. Continue home BP medications and adjust as needed for improved BP control.
- IV lasix - switched to PO lasix 20mg daily; F/u BMP outpatient
- Continue Entresto (Increased dose), spironolactone, etc.
- Echo done recently showed LVEF 35-40% and hypokinesis.
low salt diet
#Flash Pulmonary Edema
Acute Hypoxemic Respiratory Failure secondary to the above
-resolved hypoxia
- Admit for further evaluation and treatment.
- Off nitro ggt, NIV
- IV lasix - switched to PO
#suspect nonMI troponin related to HF
troponin 0.042
Lactic Acidosis
- LA on admission was 7.5.
- Likely due to decreased CO / perfusion due to flash pulmonary edema / marked systemic hypertension.
- Resolved
ASCVD
- Recent cath showed non-obstructing coronary disease.
- No complaints of chest pain.
- Continue current CV med regimen.
Suspected COPD
- Patient with long history of smoking in excess of 50 pack years. Having quit only 4 years ago.
- Family reports less severe instances of dyspnea triggered by smells / inhalation / etc.
- No formal dx of COPD.
- with significant improvement in bronchospasm with diuretics and understanding EF/clinical symptoms of volume overload- most likely not COPD exacerbation
-f/u pulm outpatient
Iron Deficiency Anemia, chronic
- Continue daily iron supplementation and follow CBC.
-f/u hematology outpatient
DVT Prophylaxis: SCDs
Code Status: Full
More than 30 minutes spent in discharge including
Final examination of the patient
Summarizing hospital stay
Instructions for continuing care to all relevant caregivers
Preparation of discharge records, prescriptions, and referral forms
Total time spent (35 in minutes):
Anticipated Discharge: Today
Subjective/Interval History
-
Date of Service: June 10, 2024
Off o2, feeling much better
Objective Data
-
Labs:
Laboratory Results
06/10/24
07:06
WBC 11.6 H
Hgb 8.5 L
Hct 29.3 L
Plt Count 495 H
Sodium 144
Potassium 3.8
Chloride 103
Carbon Dioxide 30
BUN 31 H
Creatinine 0.7
Glucose 84
Calcium 8.7
Total Bilirubin 0.2
AST 14
ALT 20
Alkaline Phosphatase 186 H
Vital Signs:
Vital Signs
Temp Pulse Resp BP Pulse Ox
97.6 F 71 20 135/56 94
06/10/24 11:31 06/10/24 11:31 06/10/24 11:31 06/10/24 11:31 06/10/24 11:31
I&O
06/09/24 06/10/24 06/11/24
06:59 06:59 06:59
Intake Total 660 / 660
Output Total 1150 / 1150
Balance -490 / -490
Review of Systems
-
History Source: Patient
All other systems: Not reviewed unless documented
Data Reviewed
-
Total Time Spent with Patient (in minutes): 56
Diagnostic Radiology: Image personally visualized and interpreted and Report Reviewed by me
Labs: Labs Reviewed by me
--- NOTE | 2024-06-10 13:24 | W.DS.TRANS ---
DC Summary - Gastroenterology Nurse
-
Discharge Instructions:
Sleep Apnea Risk Low
Discharge Diagnosis/Procedures Acute on Chronic HFrEF
Nonischemic Cardiomyopathy
Hypertensive Emergency
Diet 2 Gram Sodium,Low Cholesterol,Restrict fluids to
48 oz,Low Fat
Activity As tolerated
Driving Restrictions As prior to admission
Bathing Restrictions None
Blood Work bmp in 1 week (script provided); cbc in 1 week
with pcp
Instructions: *CBC Heart Failure Instructions
Stand-Alone Forms:
Changes to Home Medications: Yes
Discharge Medications:
DC Medications w/original date entered in [employer]
pantoprazole 40 mg tablet,delayed release 40 mg PO DAILY Gastrointestinal Issue 01/23/23
aspirin 81 mg tablet,delayed release 81 mg PO DAILY Heart Disease/Condition 10/08/23
atorvastatin 20 mg tablet 20 mg PO DAILY High Cholesterol 10/08/23
ferrous sulfate 142 mg (45 mg iron) tablet,extended release 142 mg PO DAILY Supplement 10/08/23
pregabalin 25 mg capsule 50 mg PO BID Neurological Condition 10/08/23
polyethylene glycol 3350 17 gram oral powder packet (HealthyLax) 17 g PO DAILYPRN PRN constipation 05/11/24
spironolactone 25 mg tablet 12.5 mg PO DAILY Fluid Retention/Swelling 05/11/24
carvedilol 12.5 mg tablet 12.5 mg PO BID #60 tabs 05/15/24
furosemide 20 mg tablet (Lasix) 20 mg PO DAILY #30 tabs 06/10/24
sacubitril 97 mg-valsartan 103 mg tablet (Entresto) 1 tab PO BID #60 tabs 06/10/24
Home Medication Changes
furosemide 20 mg tablet (Lasix) 20 mg PO DAILY #30 tabs 06/10/24
sacubitril 97 mg-valsartan 103 mg tablet (Entresto) 1 tab PO BID #60 tabs 06/10/24
Pending Results: No
[2024-06-10 14:40] VITALS: BP 119/68; PULSE 62; O2SAT 92
[2024-06-10 14:53] VITALS: BP 119/68
[2024-06-10] MEDS: FLUAD (65 yr+) 2024-2025 FORMULA 0.5 ML IM (15:06)
[2024-06-10] MEDS: DUONEB INH (15:36)
== END 2024-06-10 15:54 | disposition home or self-care (01) | DRG 291 ==
LOC: 3 WEST ACU 23:25
PROVIDERS: ADMITTING PHYSICIAN Hospitalist; ATTENDING PHYSICIAN Internal Medicine; EMERGENCY PHYSICIAN Emergency Medicine; FAMILY PHYSICIAN Emergency Medicine; OTHER PHYSICIAN Internal Medicine Cardiovascular Disease
PROC: 5A09357 Assistance with Respiratory Ventilation, Less than 24 Consecutive Hours, Continuous Positive Airway Pressure (ICD-10-PCS; 2024-06-09)
PROC: 3E02340 Introduction of Influenza Vaccine into Muscle, Percutaneous Approach (ICD-10-PCS; 2024-06-10)
DX: I11.0 Hypertensive heart disease with heart failure (principal); I50.23 Acute on chronic systolic (congestive) heart failure; J96.01 Acute respiratory failure with hypoxia; E87.20 Acidosis, unspecified; I16.1 Hypertensive emergency; I47.19 Other supraventricular tachycardia; Z68.1 Body mass index [BMI] 19.9 or less, adult; I25.10 Atherosclerotic heart disease of native coronary artery without angina pectoris; E78.00 Pure hypercholesterolemia, unspecified; K21.9 Gastro-esophageal reflux disease without esophagitis; D50.9 Iron deficiency anemia, unspecified; I44.7 Left bundle-branch block, unspecified; I42.8 Other cardiomyopathies; I1A.0 Resistant hypertension; J44.9 Chronic obstructive pulmonary disease, unspecified; R63.6 Underweight; I5A Non-ischemic myocardial injury (non-traumatic); Z23 Encounter for immunization; Z87.891 Personal history of nicotine dependence; Z90.3 Acquired absence of stomach [part of]; Z79.82 Long term (current) use of aspirin; Z79.899 Other long term (current) drug therapy
CPT/HCPCS: 71045; 80048; 80053; 82805; 83605; 83880; 84484; 85025; 85027; 85610; 93005; 94640; 94660; 96365; 96375; 97162; 97166; 99291

== ENCOUNTER → 2024-06-27 10:51 | Outpatient (REF) | payer OTHER, SELFPAY ==
[2024-06-27 11:05] LABS: % Basophils 0.3 % (0-2); % Eosinophils 1.6 % (0-6); % Immature Granulocytes 0.4 % (0-0.5); % Lymphocytes 11.1 % (20.5-51.1); % Monocytes 8.1 % (1.7-9.3); % Neutrophils 78.5 % (42.2-75.2); Absolute Eosinophils 0.2 10^3/uL (0-0.7); Absolute Lymphocytes 1.1 10^3/uL (1.2-3.4); Absolute Monocytes 0.8 10^3/uL (0.1-0.6); Absolute Neutrophils 7.7 10^3/uL (1.4-6.5); Hematocrit 34.6 % (37.0-47.0); Hemoglobin 9.4 g/dL (12.0-16.0); Mean Corp Hgb Conc. 27.2 g/dL (33.0-37.0); Mean Corpuscular Hgb 20.5 pg (27.0-31.0); Mean Corpuscular Volume 75.5 fL (81.0-99.0); Nucleated Red Blood Cells % 0 %; Platelet Count 548 10^3/uL (130-400); Red Blood Cell Count 4.58 10^6/uL (4.20-5.40); Red Cell Dist. Width 21.2 % (11.5-14.5); White Blood Cell Count 9.9 10^3/uL (4.8-10.8)
== END ==
LOC: OIDL 10:51
PROVIDERS: ATTENDING PHYSICIAN Internal Medicine Hematology & Oncology
DX: D50.9 Iron deficiency anemia, unspecified (principal)
CPT/HCPCS: 85025

== ENCOUNTER → 2024-09-09 10:25 | Outpatient (REF) | payer OTHER, SELFPAY | LOC: OIDL 10:25 | PROVIDERS: ATTENDING PHYSICIAN Internal Medicine Hematology & Oncology | DX: D50.9 Iron deficiency anemia, unspecified (principal) | CPT/HCPCS: 86850; 86900; 86901; 86920 ==

== ENCOUNTER 2024-09-12 08:43 | Outpatient (RCR) | payer OTHER, SELFPAY ==
--- NOTE | 2024-09-12 09:28 | W.PN.UPDATE ---
Update Note
- Progress Note Update
09/12/24 09:28
Asked to see patient in waiting area from front office. Patient accompanied by son. Per the patient she was walking out of elevator and door started to close and she hit her left side of head and possibly arm on wall. Did not lose consciousness
or fall. Son was able to grab her to keep her from falling. She then came to the [facility] for her treatment. Denies any sob, chest pain, nausea/vomiting, dizziness, imbalance. Does report slight soreness to left parietal area and forearm. History of
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 Head assessed and is with slight swelling no erythema to left parietal area but abnormalities seen on forearm. Left wrist brace in place for carpal tunnel. S/s of
subdural hematoma discussed along with s/s of concussion. At this time is AAOx3 and continues to be without symptoms. Walked down kelly slowly but without imbalance. Will continue to monitor before discharge. Here today for 1 unit PRBC. History
of iron deficient anemia. Is taking 81mg ASA daily. Son with patient at bedside. Radha Gomes treating RN aware of above and will continue to monitor.
[2024-09-12 09:29] VITALS: BP 128/63
[2024-09-12 09:47] VITALS: BP 92/45
[2024-09-12 12:01] VITALS: BP 97/51
[2024-09-12 12:42] VITALS: BP 110/56
[2024-09-12] MEDS: LASIX 10 MG IV (13:21)
[2024-09-12 13:51] VITALS: BP 102/55
--- NOTE | 2024-09-12 15:13 | PTCARENOTE ---
1200 Pt scheduled to receive Lasix 20mg IV post transfusion. Pt took lasix 20mg PO this AM. Transfusion complete BP 97/51 HR 68. Siva Li NP notified. Asked to observe patient for one hour and reevaluate BP as patient has significant cardiac
history.
1300- BP 110/56 HR 66 Spoke with Siva Li NP. Pt given Lasix 10mg IV as ordered. Pt observed for an additional hour. Pt voided x one.
1400- BP 102/55 HR 62 Temp 97.6. pt discharged in good condition accompanied by patients son. Pt given written and verbal discharge instructions. pt has good understanding
== END 2024-09-30 23:59 | disposition home or self-care (01) ==
LOC: OID 08:43
PROVIDERS: ATTENDING PHYSICIAN Internal Medicine Hematology & Oncology
DX: D50.9 Iron deficiency anemia, unspecified (principal)
CPT/HCPCS: 36430; 86850; 86900; 86901; 86920; 96374; P9016

== ENCOUNTER 2024-10-14 06:13 | Day surgery (SDC) | payer OTHER, SELFPAY ==
[2024-10-14] VITALS (7 sets, daily range): BP systolic 72–116; BP diastolic 39–53; BMI 14.6
== END 2024-10-14 14:10 | disposition home or self-care (01) ==
LOC: GI 06:13
PROVIDERS: ATTENDING PHYSICIAN Specialist
DX: D50.9 Iron deficiency anemia, unspecified (principal); D12.3 Benign neoplasm of transverse colon; K57.30 Diverticulosis of large intestine without perforation or abscess without bleeding; K63.89 Other specified diseases of intestine; K31.7 Polyp of stomach and duodenum; Z53.8 Procedure and treatment not carried out for other reasons; K22.89 Other specified disease of esophagus; K22.70 Barrett's esophagus without dysplasia; T18.2XXA Foreign body in stomach, initial encounter; W44.F3XA Food entering into or through a natural orifice, initial encounter
CPT/HCPCS: 45385; 43239; 88305

== ENCOUNTER 2024-10-25 07:35 | Outpatient (RCR) | payer OTHER, SELFPAY ==
[2024-10-25] VITALS (7 sets, daily range): BP systolic 90–106; BP diastolic 35–78
== END 2024-10-28 23:59 | disposition home or self-care (01) ==
LOC: OID 07:35
PROVIDERS: ATTENDING PHYSICIAN Internal Medicine Hematology & Oncology
DX: D50.9 Iron deficiency anemia, unspecified (principal); Z98.84 Bariatric surgery status
CPT/HCPCS: 36415; 36430; 86850; 86900; 86901; 86920; P9016

== ENCOUNTER → 2024-11-03 09:22 | Outpatient (REF) | payer OTHER, SELFPAY ==
[2024-11-03 09:56] LABS: % Basophils 0.4 % (0-2); % Eosinophils 0.9 % (0-6); % Immature Granulocytes 0.2 % (0-0.5); % Lymphocytes 6.4 % (20.5-51.1); % Monocytes 6.4 % (1.7-9.3); % Neutrophils 85.7 % (42.2-75.2); Absolute Eosinophils 0.1 10^3/uL (0-0.7); Absolute Lymphocytes 0.5 10^3/uL (1.2-3.4); Absolute Monocytes 0.5 10^3/uL (0.1-0.6); Absolute Neutrophils 7.3 10^3/uL (1.4-6.5); Hematocrit 31.4 % (37.0-47.0); Hemoglobin 9.3 g/dL (12.0-16.0); Mean Corp Hgb Conc. 29.6 g/dL (33.0-37.0); Mean Corpuscular Hgb 22.9 pg (27.0-31.0); Mean Corpuscular Volume 77.3 fL (81.0-99.0); Mean Platelet Volume 9.6 fL (7.4-10.4); Nucleated Red Blood Cells % 0 %; Platelet Count 657 10^3/uL (130-400); Red Blood Cell Count 4.06 10^6/uL (4.20-5.40); Red Cell Dist. Width 21.2 % (11.5-14.5); White Blood Cell Count 8.5 10^3/uL (4.8-10.8)
[2024-11-03 10:00] VITALS: BP 109/55; BP_SYST 64
[2024-11-03 10:20] LABS: INR 1.08; PT 14.5 Sec (11.4-14.6)
[2024-11-03 11:50] VITALS: BP 123/67; BP_SYST 63
== END ==
LOC: RADI 09:22
PROVIDERS: ATTENDING PHYSICIAN Internal Medicine Hematology & Oncology; FAMILY PHYSICIAN Emergency Medicine
DX: D50.9 Iron deficiency anemia, unspecified (principal); D68.8 Other specified coagulation defects
CPT/HCPCS: 88305; 88311; 88312; 36415; 38222; 77012; 85025; 85610; 88313

== ENCOUNTER 2025-01-11 06:11 | Day surgery (SDC) | payer OTHER, SELFPAY ==
[2025-01-11 08:50] VITALS: BMI 14.8
[2025-01-11 09:08] VITALS: BP 136/67
[2025-01-11 09:48] VITALS: BP 105/66
[2025-01-11 10:08] VITALS: BP 137/69
[2025-01-11 10:13] VITALS: BP 152/76
== END 2025-01-11 10:45 | disposition home or self-care (01) ==
LOC: GI 06:11
PROVIDERS: ATTENDING PHYSICIAN Specialist
DX: D50.9 Iron deficiency anemia, unspecified (principal); K31.7 Polyp of stomach and duodenum; K22.70 Barrett's esophagus without dysplasia
CPT/HCPCS: 43239; 88305

== ENCOUNTER 2025-02-28 06:15 | Day surgery (SDC) | payer OTHER, SELFPAY ==
[2025-02-28] VITALS (9 sets, daily range): BP systolic 91–115; BP diastolic 48–57; BMI 13.8
== END 2025-02-28 12:15 | disposition home or self-care (01) ==
LOC: GI 06:15
PROVIDERS: ATTENDING PHYSICIAN Specialist
DX: D50.9 Iron deficiency anemia, unspecified (principal); K63.89 Other specified diseases of intestine; K31.7 Polyp of stomach and duodenum; T18.2XXA Foreign body in stomach, initial encounter; W44.F3XA Food entering into or through a natural orifice, initial encounter; K22.89 Other specified disease of esophagus; K31.89 Other diseases of stomach and duodenum; K25.9 Gastric ulcer, unspecified as acute or chronic, without hemorrhage or perforation; K22.70 Barrett's esophagus without dysplasia
CPT/HCPCS: 43247; 43239; 88305; 88342

== ENCOUNTER 2025-04-28 09:42 | Inpatient (IN) | payer OTHER, SELFPAY ==
[2025-04-24 11:19] VITALS: BMI 14.6
[2025-04-24 11:42] LABS: Hematocrit 33.1 % (37.0-47.0); Hemoglobin 10.0 g/dL (12.0-16.0); Mean Corp Hgb Conc. 30.2 g/dL (33.0-37.0); Mean Corpuscular Volume 82.1 fL (81.0-99.0); Platelet Count 492 10^3/uL (130-400); Red Cell Dist. Width 23.4 % (11.5-14.5)
[2025-04-24 11:56] LABS: APTT 27.5 Sec (23.4-35.0); INR 1.06; PT 14.1 Sec (11.4-14.6)
[2025-04-24 12:03] LABS: ALT (SGPT) 19 U/L (0-35); AST (SGOT) 14 U/L (14-36); Albumin 3.5 g/dl (3.5-5.0); Alkaline Phosphatase 114 U/L (38-126); Blood Urea Nitrogen 24 mg/dl (7-17); Calcium 9.1 mg/dl (8.4-10.2); Carbon Dioxide 30 mmol/L (22-30); Chloride 105 mmol/L (98-107); Estimated Creatinine Clearance 38 ml/min; Glucose 102 mg/dl (70-99); Potassium 3.7 mmol/L (3.5-5.1); Sodium 144 mmol/L (135-145); Total Protein 6.8 g/dl (6.3-8.2); eGFR > 60.00
[2025-04-28] VITALS (16 sets, daily range): BP systolic 101–130; BP diastolic 53–77; BMI 14.6
[2025-04-28] MEDS: NEURONTIN 300 MG PO (10:36)
[2025-04-28] MEDS: TYLENOL 1000 MG PO (10:37)
[2025-04-28] MEDS: HEPARIN 5000 UNITS SC (11:24)
--- NOTE | 2025-04-28 13:22 | W.PN.SURGUPD ---
Surgical Update
Surgical Update
She is a 74-year-old woman with a history of partial gastrectomy and Billroth II anastomosis for peptic ulcer disease in 1999. Since her gastrectomy, she has experienced gastroparesis, weight loss, chronic anemia, and has lost more than 40 pounds.
Prior to surgery, she weighed 125 pounds, but now she weighs around 80 pounds. Her UGI in 2019 showed a large filling defect in the gastric remnant consistent with gastroparesis and the preferential filling of the afferent limb with dilation.
Additionally, during her recent upper endoscopy on 02/28/2025, she was found to have nodularity, edema, and ulceration involving her gastrojejunal anastomosis. 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 To
obtain a definitive diagnosis and possibly a definitive treatment, I recommended resection of the gastrojejunal anastomosis, with possible partial or total gastrectomy if cancer is detected, and Ashia-en-Y anastomosis. This approach may also help
address her gastroparesis and anemia caused by the marginal ulcer, a known complication of Billroth II gastrectomy.
However, and Mr. oLpez are concerned that she may be too cachectic and weak to undergo the proposed procedure. She now uses a walker to ambulate. Although her video clerk, Dr. Alexander Hoskins, cleared her for surgery, her told me
that Dr. Hoskins seemed very worried because of her comorbidities.
I share their concerns. Her poor performance status, cachexia, malnutrition, and anemia put her at high risk for perioperative complications. Unfortunately, waiting won't improve her condition since some major issues are caused by her Billroth II
stomach connection, which is leading to malnutrition from poor oral intake and gastroparesis, as well as chronic anemia from marginal ulcers.
After a detailed discussion, I recommended first placing a feeding jejunostomy tube to improve her nutritional status, which should also enhance her performance status and help her gain weight. Then, we can consider surgery several months later to
address her possible gastric cancer and convert her Billroth II anastomosis to a Ashia-en-Y to improve gastric emptying and treat the marginal ulcers. They agree with this plan.
[2025-04-28] MEDS: TYLENOL 650 MG PO ×2 (16:57→21:00)
[2025-04-28] MEDS: D5/0.9% SODIUM CHLORIDE 1000 IV (16:57)
[2025-04-28] MEDS: ENTRESTO 97 MG/103 MG 1 TAB PO (21:01)
[2025-04-28] MEDS: PROTONIX 40 MG PO (21:01)
[2025-04-28] MEDS: COREG 6.25 MG PO (21:04)
[2025-04-29] VITALS (7 sets, daily range): BP systolic 117–132; BP diastolic 58–68; PULSE 62; O2SAT 94; BMI 14.5
[2025-04-29] MEDS: TYLENOL PO (00:25)
[2025-04-29] MEDS: TYLENOL 650 MG PO ×5 (03:31→20:44)
--- NOTE | 2025-04-29 06:35 | PTCARENOTE ---
pt has had multiple large liquid bowel movements this shift. stool sample sent to lab to r/o c-diff. pt placed on enhanced precautions pending lab results.
[2025-04-29 07:54] LABS: Hematocrit 28.5 % (37.0-47.0); Hemoglobin 8.6 g/dL (12.0-16.0); Mean Corp Hgb Conc. 30.2 g/dL (33.0-37.0); Mean Corpuscular Volume 81.4 fL (81.0-99.0); Platelet Count 471 10^3/uL (130-400); Red Cell Dist. Width 22.1 % (11.5-14.5)
[2025-04-29 08:03] LABS: ALT (SGPT) 10 U/L (0-35); AST (SGOT) 16 U/L (14-36); Albumin 2.8 g/dl (3.5-5.0); Alkaline Phosphatase 98 U/L (38-126); Blood Urea Nitrogen 32 mg/dl (7-17); Calcium 8.3 mg/dl (8.4-10.2); Carbon Dioxide 28 mmol/L (22-30); Chloride 106 mmol/L (98-107); Estimated Creatinine Clearance 43 ml/min; Glucose 88 mg/dl (70-99); Potassium 3.7 mmol/L (3.5-5.1); Sodium 139 mmol/L (135-145); Total Protein 5.9 g/dl (6.3-8.2); eGFR > 60.00
[2025-04-29] MEDS: ASPIR LOW (ENTERIC COATED) 81 MG PO (08:59)
[2025-04-29] MEDS: ENTRESTO 97 MG/103 MG 1 TAB PO ×2 (09:00→20:44)
[2025-04-29] MEDS: PROTONIX 40 MG PO ×2 (09:00→20:44)
[2025-04-29] MEDS: VITAMIN D3 (cholecalciferol) 25 MCG PO (09:00)
[2025-04-29] MEDS: LASIX 20 MG PO (09:00)
[2025-04-29] MEDS: VITAMIN B-12 1000 MCG PO (09:00)
[2025-04-29] MEDS: FEOSOL 325 MG PO (09:00)
[2025-04-29] MEDS: LIPITOR 20 MG PO (09:00)
[2025-04-29] MEDS: ALDACTONE 12.5 MG PO (09:01)
[2025-04-29] MEDS: COREG 6.25 MG PO ×2 (09:09→20:45)
[2025-04-29] MEDS: ROXICODONE 5 MG PO (09:09)
[2025-04-29] MEDS: D5/0.9% SODIUM CHLORIDE 1000 IV (09:09)
--- NOTE | 2025-04-29 10:01 | W.PN.GENERIC ---
Assessment / Plan
-
S/p Exp Lap. Insertion of feeding J-tube
OOB and ambulate
Await recs from nutritional support re TS
Will start Jevity @ 10cc for now
PT/OT
Physician Progress Note
Subjective
No problem overnight. Minimal incisional pain. Had big BMs
Objective
Vital Signs
Temp Pulse Resp BP Pulse Ox
98.0 F 66 16 118/58 97
04/29/25 07:35 04/29/25 09:09 04/29/25 07:35 04/29/25 09:09 04/29/25 07:35
Lab Results
04/29/25 06:35
04/29/25 06:35
Abdomen - soft, ND. Incision - CDI
--- NOTE | 2025-04-29 12:21 | CM ---
CM met with pt and spouse bedside
Pt and spouse reside with 2 adults son in a 1SH with 1STE
Pt is indep with use of a WW for ambulation
Spouse assist with supervision and LE personal care
Pt sleeps on couch for the TV/spouse snoring issues
Spouse works occasionally out of the home, 1 son works from home and 1 son works out of the home
Pt denies VN/SNF hx
PCP- Anitra Aguilera
Rx- [facility]
CM consult for tube feeds
POD#1 j-tube placement
SNF vs VN recs by therapy
Pt declined SNF, spouse noted he and sons will be available for tube feeds
Provider choices discussed and pt/spouse selected [facility]
Call with [facility] [phone]
Referrals made via [facility] and pending
Spouse and sons will require teaching
Discharge Disposition- home with VN and tube feeds ([facility] referrals pending)
[2025-04-29 14:21] LABS: Magnesium 2.2 mg/dl (1.6-2.3); Potassium 3.6 mmol/L (3.5-5.1)
[2025-04-30] MEDS: TYLENOL 650 MG PO ×5 (00:07→19:52)
[2025-04-30 06:00] VITALS: BMI 15.1
[2025-04-30 06:19] LABS: Magnesium 2.3 mg/dl (1.6-2.3); Potassium 4.0 mmol/L (3.5-5.1)
[2025-04-30 07:44] VITALS: BP 132/62
[2025-04-30] MEDS: ASPIR LOW (ENTERIC COATED) 81 MG PO (08:00)
[2025-04-30] MEDS: ENTRESTO 97 MG/103 MG 1 TAB PO ×2 (08:00→19:52)
[2025-04-30] MEDS: TYLENOL PO ×2 (08:00→23:12)
[2025-04-30] MEDS: VITAMIN B-12 1000 MCG PO (08:00)
[2025-04-30] MEDS: VITAMIN D3 (cholecalciferol) 25 MCG PO (08:00)
[2025-04-30] MEDS: LIPITOR 20 MG PO (08:00)
[2025-04-30] MEDS: PROTONIX 40 MG PO ×2 (08:01→19:52)
[2025-04-30] MEDS: ALDACTONE 12.5 MG PO (08:01)
[2025-04-30] MEDS: LASIX 20 MG PO (08:01)
[2025-04-30] MEDS: FEOSOL 325 MG PO (08:02)
[2025-04-30] MEDS: COREG 6.25 MG PO ×2 (08:02→19:52)
--- NOTE | 2025-04-30 13:00 | W.PN.SURGUPD ---
Surgical Update
Surgical Update
Surgically, she remains stable. Her black, tarry stool is originating from her marginal ulcer at the gastrojejunostomy anastomosis, which is also causing frequent bowel movements. Currently, there is no good solution except surgical correction,
which we are planning in the near future. We will check her CBC. She may need blood transfusions if her Hg continues to drop.
It seems she is tolerating tube feeds. Once she reaches the goal rate of 35 cc/hr and home care is arranged, we will discharge her.
Continue current care.
[2025-04-30 14:50] VITALS: BP 116/60
[2025-04-30 19:00] VITALS: BP 129/64
[2025-04-30 21:31] VITALS: BP 129/64
[2025-04-30 23:05] VITALS: BP 134/66
[2025-05-01] MEDS: TYLENOL 650 MG PO ×5 (03:51→20:27)
[2025-05-01 06:00] VITALS: BMI 15.2
[2025-05-01 07:25] VITALS: BP 161/82
[2025-05-01 07:28] LABS: Hematocrit 28.5 % (37.0-47.0); Hemoglobin 8.6 g/dL (12.0-16.0); Mean Corp Hgb Conc. 30.2 g/dL (33.0-37.0); Mean Corpuscular Volume 82.1 fL (81.0-99.0); Platelet Count 481 10^3/uL (130-400); Red Cell Dist. Width 21.8 % (11.5-14.5)
[2025-05-01 07:57] LABS: Blood Urea Nitrogen 27 mg/dl (7-17); Calcium 8.3 mg/dl (8.4-10.2); Carbon Dioxide 30 mmol/L (22-30); Chloride 107 mmol/L (98-107); Estimated Creatinine Clearance 53 ml/min; Glucose 93 mg/dl (70-99); Potassium 4.4 mmol/L (3.5-5.1); Sodium 139 mmol/L (135-145); eGFR > 60.00
[2025-05-01] MEDS: HYDREA 500 MG PO (08:45)
[2025-05-01] MEDS: FEOSOL 325 MG PO (08:45)
[2025-05-01] MEDS: VITAMIN D3 (cholecalciferol) 25 MCG PO (08:45)
[2025-05-01] MEDS: LASIX 20 MG PO (08:46)
[2025-05-01] MEDS: ALDACTONE 12.5 MG PO (08:46)
[2025-05-01] MEDS: COREG 6.25 MG PO ×2 (08:46→20:27)
[2025-05-01] MEDS: ENTRESTO 97 MG/103 MG 1 TAB PO ×2 (08:46→20:27)
[2025-05-01] MEDS: ASPIR LOW (ENTERIC COATED) 81 MG PO (08:47)
[2025-05-01] MEDS: LIPITOR 20 MG PO (08:47)
[2025-05-01] MEDS: PROTONIX 40 MG PO ×2 (08:47→20:27)
[2025-05-01] MEDS: VITAMIN B-12 1000 MCG PO (09:25)
[2025-05-01 15:20] VITALS: BP 151/76
[2025-05-01 23:03] VITALS: BP 159/98
[2025-05-01] MEDS: TYLENOL PO (23:47)
[2025-05-02] MEDS: TYLENOL 650 MG PO ×5 (02:36→20:56)
[2025-05-02 06:00] VITALS: BMI 15.5
[2025-05-02 07:30] VITALS: BP 154/84
--- NOTE | 2025-05-02 08:07 | W.PN.GENERIC ---
Assessment / Plan
-
S/p Exp Lap. Feeding J-tube insertion.
Surgically stable. Tolerating TF at the goal rate
Pt is ready for DC when home equipment for TF is setup
OOB and ambulate
Physician Progress Note
Subjective
No complaints. Tolerating TF without any problems. Denies N/V. Her Hg stabel at 8.6
Objective
Vital Signs
Temp Pulse Resp BP Pulse Ox
98.3 F 87 16 159/98 95
05/01/25 23:03 05/01/25 23:03 05/01/25 23:03 05/01/25 23:03 05/01/25 23:03
Lab Results
05/01/25 07:10
05/01/25 07:10
Abd - soft ND. Incision - CDI
[2025-05-02] MEDS: ALDACTONE 12.5 MG PO (09:16)
[2025-05-02] MEDS: ASPIR LOW (ENTERIC COATED) 81 MG PO (09:17)
[2025-05-02] MEDS: ENTRESTO 97 MG/103 MG 1 TAB PO ×2 (09:18→20:51)
[2025-05-02] MEDS: COREG 6.25 MG PO ×2 (09:18→20:56)
--- NOTE | 2025-05-02 09:18 | PN.CDI ---
CDI
- -
CDI:
Physician Documentation Request
Admit Date: 04/28/25 09:42
Dear Doctor Kevin,
Clinical Indicators:
Patient admitted with gastric tumor; s/p ex lap with J tube insertion 04/28.
04/28 PN, 'Her poor performance status, cachexia, malnutrition, and anemia put her at high risk for perioperative complications.'
04/29 note/assessment:- Subcutaneous Loss: Rib Cage: Moderate Triceps: Severe
Muscle Loss: Calf, Temporal, Buccal: Severe
-'...reflective of a 13 lb (13%) weight loss in 10 months.'
-'With intakes of < 75% estimated needs > 1 year and observed muscle and fat wasting
pt meets AND/ASPEN criteria for severe protein calorie malnutrition of chronic
illness.
Please provide in your progress notes additional specificity regarding the severity of the malnutrition:
Severe
Other (please specify)
Potter Criteria ([facility] Hospitalist 2017)
2 or more criteria must be present for either
non severe or severe malnutrition
Note that the criteria differs related to the
presence of an acute or chronic illness
Chronic Illness
Energy Intake Non Severe: <75% for >1 month
Severe: <75% for >1 month
Weight Loss Non Severe: 5% over 1 month
7.5% over 3 months
10% over 6 months
20% over 1 year
Severe: >5% over 1 month
>7.5% over 3 months
>10% over 6 months
>20% over 1 year
Body Fat Non Severe: Mild Loss
Severe: Severe Loss
Muscle Mass Non Severe: Mild Loss
Severe: Severe Loss
Fluid Accumulation Non Severe: Mild Accumulation
Severe: Moderate to severe
accumulation
Reduced Auto Rental Clerk Strength Non Severe: N/A
Severe: Measurably reduced
Additional criteria that can be used to Determine if Mild or Moderate Malnutrition (Merck Manual 2018)
Mild Moderate Severe
Albumin gm/dl <3.0 gm/dl <2.5 gm/dl <2.0 gm/dl
Pre Albumin mg/dl <15 gm/dl <10 mg/dl <5.0 mg/dl
BMI <18.5 <17 <16
Use of terms such as suspected, likely, concern for, or probable (associated with a specific diagnosis that is being evaluated, monitored, or treated as if it exists) are acceptable and can be coded in the inpatient setting, when documented at the
time of discharge.
Thank you,
GENARO Daniel RN
CDI Specialist
available via tiger text
Please use your independent medical judgment in providing your response.
[2025-05-02] MEDS: FEOSOL 325 MG PO (09:19)
[2025-05-02] MEDS: LASIX 20 MG PO (09:19)
[2025-05-02] MEDS: LIPITOR 20 MG PO (09:20)
[2025-05-02] MEDS: PROTONIX 40 MG PO ×2 (09:20→20:51)
[2025-05-02] MEDS: VITAMIN B-12 1000 MCG PO (09:20)
[2025-05-02] MEDS: VITAMIN D3 (cholecalciferol) 25 MCG PO (09:21)
--- NOTE | 2025-05-02 14:25 | W.PN.SURGUPD ---
Surgical Update
Surgical Update
The patient has severe protein calorie malnutrition of chronic illness as per the AND/ASPEN criteria.
[2025-05-02 15:15] VITALS: BP 149/83
--- NOTE | 2025-05-02 16:26 | CM ---
TC from Alethea De Jesus from [facility]. [phone]
She requested Infusion referral be sent.
[facility] Checked and referral sent 04/29/25 but not notes if accepted or not.
CM updated referral and resent. Alethea will call back if additional info is required.
She will follow up with her team as to whey referral was not picked up.
CM will updated assigned CM.
--- NOTE | 2025-05-02 17:41 | CM ---
Spoke with Alethea from [facility] who stated that she needs a script for the tube feeds as well as dietary notes for patient as she . Faxed (manually) [phone] as she has not yet received any clinical in allscripts. Spoke with patient's RN,
Maria A, who stated that she will teach patient her tube feeds tonight and tomorrow.
Plan: Case management will continue to follow and assist with discharge planning. Home with [facility] and Tube feeds.
--- NOTE | 2025-05-02 19:09 | OR.RPT ---
Operative Report
Operative Report
Date of Operation: April 28, 2025
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
Postoperative Diagnosis: Same
Surgeon: Jesse Brown M.D.
Operation: Exploratory Laparotomy (sp) � 78767; Insertion of Feeding J-Tube - 33432
Anesthesia: General Anesthesia
Estimated Blood Loss: 3 cc
Drains: None
Specimen: None
Findings: No intra-abdominal disease
Complications: None
Indication for Surgery
She is a 74-year-old woman with a history of partial gastrectomy and Billroth II anastomosis for peptic ulcer disease in 1999. Since her gastrectomy, she has experienced gastroparesis, weight loss, chronic anemia, and has lost more than 40 pounds.
Prior to surgery, she weighed 125 pounds, but now she weighs around 80 pounds. Her UGI in 2019 showed a large filling defect in the gastric remnant consistent with gastroparesis and the preferential filling of the afferent limb with dilation.
Additionally, during her recent upper endoscopy on 02/28/2025, she was found to have nodularity, edema, and ulceration involving her gastrojejunal anastomosis. 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 To
obtain a definitive diagnosis and possibly a definitive treatment, I recommended resection of the gastrojejunal anastomosis, with possible partial or total gastrectomy if cancer is detected, and Ashia-en-Y anastomosis. This approach may also help
address her gastroparesis and anemia caused by the marginal ulcer, a known complication of Billroth II gastrectomy.
However, and Mr. Lopez are concerned that she may be too cachectic and weak to undergo the proposed procedure. She now uses a walker to ambulate. Although her aircraft mechanic armament, Dr. Alexander Hoskins, cleared her for surgery, her told me
that Dr. Hoskins seemed very worried because of her comorbidities. I share their concerns. Her poor performance status, cachexia, malnutrition, and anemia put her at high risk for perioperative complications. Unfortunately, waiting won't improve
her condition since some major issues are caused by her Billroth II stomach connection, which is leading to malnutrition from poor oral intake and gastroparesis, as well as chronic anemia from marginal ulcers.
After a detailed discussion, I recommended first placing a feeding jejunostomy tube to improve her nutritional status, which should also enhance her performance status and help her gain weight. Then, we can consider surgery several months later to
address her possible gastric cancer and convert her Billroth II anastomosis to a Ashia-en-Y to improve gastric emptying and treat the marginal ulcers. They agree with this plan.
Procedure
After informed consent was confirmed, the patient was taken to the operating room and placed supine. Following induction of general anesthesia, the abdomen was prepped and draped in standard sterile fashion. A midline incision was made and carried
down through the subcutaneous tissues and linea alba to enter the peritoneal cavity. The peritoneal cavity was entered, and a thorough exploration was performed as described above. No evidence of intra-abdominal malignancy was found. No biopsies
were taken as there were no abnormal tissues identified. Hemostasis was confirmed. Next, attention was turned to the jejunostomy placement. A suitable loop of proximal jejunum, approximately 20�30 cm distal to the ligament of Treitz, was identified.
A small enterotomy was made on the antimesenteric border. A 14-English feeding tube was then introduced into the lumen of the jejunum and advanced distally without resistance. The tube was secured to the bowel using a purse-string suture with
absorbable monofilament. A Witzel tunnel was fashioned by placing a series of seromuscular sutures to cover the jejunostomy tube along 2 cm of its intraluminal course. The jejunal loop was then secured to the peritoneum with seromuscular sutures to
prevent torsion or migration. The tube was brought out through a separate stab incision in the left abdominal wall and secured to the skin with Prolene sutures. Free flow of saline and aspiration confirmed intraluminal placement and patency. After
obtaining good hemostasis, the abdomen was closed. The fascia was approximated with #1 Vicryl in a running fashion, and the skin was reapproximated with sophie. The patient tolerated the procedure well. The final instrument, needle, and sponge
counts were correct. The patient was extubated and transferred to the recovery room.
[2025-05-02 23:29] VITALS: BP 151/87
[2025-05-03] MEDS: TYLENOL 650 MG PO ×5 (00:46→20:41)
[2025-05-03 05:16] VITALS: BMI 15.4
[2025-05-03 08:03] VITALS: BP 152/91
[2025-05-03] MEDS: LASIX 20 MG PO (09:15)
[2025-05-03] MEDS: COREG 6.25 MG PO ×2 (09:15→20:41)
[2025-05-03] MEDS: ENTRESTO 97 MG/103 MG 1 TAB PO ×2 (09:15→20:39)
[2025-05-03] MEDS: ASPIR LOW (ENTERIC COATED) 81 MG PO (09:15)
[2025-05-03] MEDS: FEOSOL 325 MG PO (09:16)
[2025-05-03] MEDS: PROTONIX 40 MG PO ×2 (09:16→20:41)
[2025-05-03] MEDS: ALDACTONE 12.5 MG PO (09:16)
[2025-05-03] MEDS: HYDREA 500 MG PO (09:16)
[2025-05-03] MEDS: LIPITOR 20 MG PO (09:16)
[2025-05-03] MEDS: VITAMIN D3 (cholecalciferol) 25 MCG PO (09:16)
--- NOTE | 2025-05-03 11:06 | W.DS.TRANS ---
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
-
Discharge Instructions:
Sleep Apnea Risk Intermediate
Discharge Diagnosis/Procedures gastric cancer/malnutrition
Diet As tolerated
Additional Diets TF as directed
Activity No strenuous activity
Driving Restrictions No driving for 1 week
Bathing Restrictions OK to Shower
Instructions:
Stand-Alone Forms:
Changes to Home Medications: No
Discharge Medications:
DC Medications w/original date entered in [facility]
pantoprazole 40 mg tablet,delayed release 40 mg PO BID Gastrointestinal Issue 01/23/23
aspirin 81 mg tablet,delayed release 81 mg PO DAILY Heart Disease/Condition 10/08/23
atorvastatin 20 mg tablet 20 mg PO DAILY High Cholesterol 10/08/23
ferrous sulfate 142 mg (45 mg iron) tablet,extended release 142 mg PO DAILY Supplement 10/08/23
sacubitril 97 mg-valsartan 103 mg tablet (Entresto) 1 tab PO BID Heart Failure 10/25/24
carvedilol 12.5 mg tablet 6.25 mg PO BID Blood Pressure 11/01/24
furosemide 20 mg tablet (Lasix) 20 mg PO DAILY Heart Failure 11/01/24
spironolactone 25 mg tablet 12.5 mg PO DAILY Blood Pressure 11/01/24
cholecalciferol (vitamin D3) 25 mcg (1,000 unit) tablet (Vitamin D3) 25 mcg PO DAILY Supplement 04/20/25
cyanocobalamin (vitamin B-12) 1,000 mcg tablet (Vitamin B-12) 1,000 mcg PO DAILY Supplement 04/20/25
hydroxyurea 500 mg capsule 500 mg PO MOWEFR 04/20/25
Home Medication Changes
Pending Results: No
[2025-05-03 11:20] VITALS: BP 156/94
[2025-05-03 11:51] VITALS: BP 140/82; PULSE 87; O2SAT 94
[2025-05-03 11:58] VITALS: BP 140/82; PULSE 85; O2SAT 95
--- NOTE | 2025-05-03 12:39 | CM ---
CM following re: discharge planning.
Reviewed pt's chart, met with pt, spoke to pt's over the phone numerous time this morning and later at bedside.
Per CM note a plan was initiated to get the pt david dan with [facility] home care and infusion therapy and a referral to [facility] home care and infusion noted.
CM spoke to [facility] home care and infusion therapy underwriting service representative Evelin and she confirmed that pt is accepted for VN services and home infusion therapy and pt must be discharged before 1:00 p.m. today if medically stable. CM spoke to pt's
and he confirmed he will transport his spouse home today at 1:00 p.m.
Discharge order requested from MD. CARR reviewed, placed on chart, pt has a copy.
PT and OT re-evaluated the pt today, pt requires min to mod assistance and SNF level of care strongly recommended. CM discussed it with pt and her husbnad and son by text and pt agrees with going to a SNF. A list of SNFs provided. following SNFs
preferred: [facility], [facility], [facility], [facility], [facility]. [facility], [place] [facility].
A referral to above SNFs made.
Discharge order has been cancelled due to not having safe discharge plan and SNF level of care recommended.
CM spooke to [facility] home care and infusion therapy underwriting service representative Evelin, she expressed her disappointed feelings stating that all equipment already delivered to pt's home and at the same time she expressed her understanding that pt needs
higher level of care and she cancelled a referral.
D/C plan: preferred SNF. Awaiting for determination. Pt will need an auth
CM will follow to assist pt with a safe discharge plan to a preferred S NF.
[2025-05-03] MEDS: VITAMIN B-12 1000 MCG PO (13:29)
[2025-05-03 15:15] VITALS: BP 135/74
[2025-05-03] MEDS: TYLENOL PO (16:00)
[2025-05-03 19:18] VITALS: BP 123/76
[2025-05-04] MEDS: TYLENOL PO ×3 (00:45→23:31)
--- NOTE | 2025-05-04 04:00 | PTCARENOTE ---
Resumed care of pt resting in bed. Pt grossly inc of urine, and loose dark brown stool. CHG bath provided. Celia care complete. Foam dressing applied to sacrum for protection. Pt cachectic. Pt positioned in bed per comfort. Pillow under heels, pt
turned on side. J tube in place infusing Jevity 1.5 @35ml/hr with 25ml flush. HOB elevated, asp prec in place. Steri strips intact in lower abd incision. Pt reports pain at tolerable level at this time. Right AC int capped. Call fajardo in reach. No
issues to report at this time. Will continue to monitor.
[2025-05-04 04:07] VITALS: BP 130/78
[2025-05-04 05:56] VITALS: BMI 15.3
[2025-05-04 07:25] VITALS: BP 148/76
[2025-05-04] MEDS: COREG 6.25 MG PO ×2 (08:02→20:03)
[2025-05-04] MEDS: FEOSOL 325 MG PO (08:02)
[2025-05-04] MEDS: LASIX 20 MG PO (08:02)
[2025-05-04] MEDS: TYLENOL 650 MG PO ×4 (08:02→20:03)
[2025-05-04] MEDS: ALDACTONE 12.5 MG PO (08:02)
[2025-05-04] MEDS: PROTONIX 40 MG PO ×2 (08:03→20:03)
[2025-05-04] MEDS: VITAMIN B-12 1000 MCG PO (08:03)
[2025-05-04] MEDS: ASPIR LOW (ENTERIC COATED) 81 MG PO (08:03)
[2025-05-04] MEDS: VITAMIN D3 (cholecalciferol) 25 MCG PO (08:03)
[2025-05-04] MEDS: ENTRESTO 97 MG/103 MG 1 TAB PO ×2 (08:03→20:03)
[2025-05-04] MEDS: LIPITOR 20 MG PO (08:03)
--- NOTE | 2025-05-04 10:34 | W.PN.SURGUPD ---
Surgical Update
Surgical Update
Plan for SNIF placement noted. When SNIF placement in place, will DC patient. Surgically stable for DC.
--- NOTE | 2025-05-04 10:45 | CM ---
Addendum entered by Radha Elizondo RN 05/04/25 15:12:
Spouse provide list of area SNFs. [facility] accepted based on bed availability, [facility] accepted, and [facility] accepted.
Original Note:
Reviewed the chart notes and spoke with the patient at the bedside. CM continues to be available to patient/family and is monitoring medical plan for needs at discharge.
Plan: Discharge to SNF/rehab once bed secured and auth obtained.
[2025-05-04 16:30] VITALS: BP 132/82
[2025-05-04 23:00] VITALS: BP 124/86
[2025-05-05 02:41] VITALS: BMI 14.8
[2025-05-05] MEDS: TYLENOL PO ×2 (04:52→12:00)
[2025-05-05 07:40] VITALS: BP 144/80
[2025-05-05] MEDS: ALDACTONE 12.5 MG PO (08:36)
[2025-05-05] MEDS: PROTONIX 40 MG PO ×2 (08:37→20:22)
[2025-05-05] MEDS: LASIX 20 MG PO (08:37)
[2025-05-05] MEDS: FEOSOL 325 MG PO (08:37)
[2025-05-05] MEDS: COREG 6.25 MG PO ×2 (08:37→20:22)
[2025-05-05] MEDS: ENTRESTO 97 MG/103 MG 1 TAB PO ×2 (08:37→20:22)
[2025-05-05] MEDS: VITAMIN D3 (cholecalciferol) 25 MCG PO (08:37)
[2025-05-05] MEDS: VITAMIN B-12 1000 MCG PO (08:37)
[2025-05-05] MEDS: TYLENOL 650 MG PO ×3 (08:37→20:22)
[2025-05-05] MEDS: HYDREA 500 MG PO (08:37)
[2025-05-05] MEDS: LIPITOR 20 MG PO (08:37)
[2025-05-05] MEDS: ASPIR LOW (ENTERIC COATED) 81 MG PO (08:37)
--- NOTE | 2025-05-05 11:37 | W.PN.SURGUPD ---
Surgical Update
Surgical Update
Medically stable. Await SNIF placement.
[2025-05-05 13:01] VITALS: BP 133/72; PULSE 97
[2025-05-05 15:25] VITALS: BP 108/67
[2025-05-05 16:10] VITALS: BP 108/67; PULSE 95; O2SAT 93
[2025-05-05 23:15] VITALS: BP 117/65
[2025-05-06] MEDS: TYLENOL PO ×2 (00:28→04:32)
[2025-05-06 06:00] VITALS: BMI 15.5
[2025-05-06 07:30] VITALS: BP 126/71
[2025-05-06] MEDS: VITAMIN B-12 1000 MCG PO (08:14)
[2025-05-06] MEDS: PROTONIX 40 MG PO (08:14)
[2025-05-06] MEDS: TYLENOL 650 MG PO ×2 (08:14→11:39)
[2025-05-06] MEDS: ASPIR LOW (ENTERIC COATED) 81 MG PO (08:14)
[2025-05-06] MEDS: ENTRESTO 97 MG/103 MG 1 TAB PO (08:14)
[2025-05-06] MEDS: FEOSOL 325 MG PO (08:14)
[2025-05-06] MEDS: ALDACTONE 12.5 MG PO (08:15)
[2025-05-06] MEDS: COREG 6.25 MG PO (08:16)
[2025-05-06] MEDS: VITAMIN D3 (cholecalciferol) 25 MCG PO (08:16)
[2025-05-06] MEDS: LASIX 20 MG PO (08:16)
[2025-05-06] MEDS: LIPITOR 20 MG PO (08:16)
--- NOTE | 2025-05-06 13:12 | CM ---
CM following re: discharge planning.
Reviewed pt's chart, met with pt and pt's at bedside.
Pt's RN TTed to meet with the pt and her per their request.
Pt's brought his unpleasant feelings regarding discharge planning. Both pt and her were informed that [facility] SNF, [facility] SNF and [facility] SN[facility] offered a bed. [facility] SNF denied a referral. Pt's
stated that [facility] is OK but he preferred [facility]. Pt expressed her agreement with her request.
A referral to [facility] made, spoke to [facility] liaison and she confirmed they do have a bed available and pt is accepted for admission today.
CM initiated an auth from [facility] for SNF level of care at [facility], spoke to [employer] delivery representative Darius and based on pt's clinical, pt is approved for 5 initial days starting today 05/06/25 till 05/10/25 with LCD and NRD 05/10/25. For review call [phone].
Auth: [id number]
Auth information forwarded to [facility] liaison and she confirmed that pt is accepted for admission today. CM asked to make sure they will have a transport chair on the lobby for the pt.
Both pt and her are aware, expressed their agreement with discharge. IMM reviewed, placed on chart, pt has a copy.
Pt's requested he will transport the pt to [facility]. Pt's is notified that [facility] will have a transport chair on the lobby to use for the pt.
Discharge order requested from .
[facility] nursing report: [phone]
Discharge instructions fax: [phone]
D/C plan: [facility] today
[2025-05-06 14:19] VITALS: BP 129/69
== END 2025-05-06 14:41 | DRG 374 ==
LOC: 2 SOUTH 09:42
PROVIDERS: ADMITTING PHYSICIAN Surgery; FAMILY PHYSICIAN Emergency Medicine
PROC: 0DHA0UZ Insertion of Feeding Device into Jejunum, Open Approach (ICD-10-PCS; 2025-05-02)
DX: C16.9 Malignant neoplasm of stomach, unspecified (principal); E43 Unspecified severe protein-calorie malnutrition; Z68.1 Body mass index [BMI] 19.9 or less, adult; R64 Cachexia; K31.84 Gastroparesis; G51.0 Bell's palsy; I50.9 Heart failure, unspecified; D63.8 Anemia in other chronic diseases classified elsewhere; I11.0 Hypertensive heart disease with heart failure; K22.70 Barrett's esophagus without dysplasia; R62.7 Adult failure to thrive; Z90.3 Acquired absence of stomach [part of]; Z87.11 Personal history of peptic ulcer disease; Z75.1 Person awaiting admission to adequate facility elsewhere
CPT/HCPCS: 36415; 80048; 80053; 83735; 84100; 84132; 85027; 85610; 85730; 87324; 87449; 93005; 97110; 97116; 97163; 97167; 97530; 97535

== ENCOUNTER 2025-05-17 23:17 | Inpatient (IN) | payer OTHER, SELFPAY ==
[2025-05-17] VITALS (33 sets, daily range): BP systolic 61–130; BP diastolic 39–65
[2025-05-17 20:25] LABS: Hematocrit 31.1 % (37.0-47.0); Hemoglobin 9.3 g/dL (12.0-16.0); Mean Corp Hgb Conc. 29.9 g/dL (33.0-37.0); Mean Corpuscular Volume 80.4 fL (81.0-99.0); Nucleated Red Blood Cells % 0 %; Platelet Count 781 10^3/uL (130-400); Red Cell Dist. Width 19.9 % (11.5-14.5)
[2025-05-17 20:27] LABS: ALT (SGPT) 93 U/L (0-35); AST (SGOT) 59 U/L (14-36); Albumin 3.3 g/dl (3.5-5.0); Alkaline Phosphatase 119 U/L (38-126); Blood Urea Nitrogen 69 mg/dl (7-17); Calcium 9.8 mg/dl (8.4-10.2); Carbon Dioxide 14 mmol/L (22-30); Chloride 108 mmol/L (98-107); Estimated Creatinine Clearance 42 ml/min; Glucose 80 mg/dl (70-99); Lipase 179 U/L (23-300); Potassium 6.7 mmol/L (3.5-5.1); Sodium 133 mmol/L (135-145); Total Protein 7.0 g/dl (6.3-8.2); eGFR > 60.00
--- NOTE | 2025-05-17 20:28 | ED.GENMED ---
History of Present Illness
<Lola De PA-C - Last Filed: 05/18/25 11:39>
General
Chief Complaint: Abdominal Pain
Source: patient and spouse
Exam Limitations: none
Time Seen by Provider: 05/17/25 19:37
Nursing documentation reviewed up to this point in time: agreed with
History of Present Illness
History of Present Illness:
Patient is a 74-year-old female who presents to the emergency department via EMS from [facility] with report of abdominal pain and diarrhea. Patient's said yesterday when he saw her she seemed to be at her baseline however he was
contacted this afternoon stating that they were concerned about an infectious process. Apparently patient had multiple episodes of dark diarrhea last night and had been complaining of abdominal pain. She reports feeling very weak.
Patient denies any recent fever, vomiting, or cough. No urinary symptoms. She denies any chest pain or shortness of breath.
Patient has a history of stomach cancer and has a J-tube in place. She does have some oral intake.
No oral anticoagulation.
Past History
<Lola De PA-C - Last Filed: 05/18/25 11:39>
Past History
ED Past Medical History: CAD, GERD, HTN, Hypercholesterolemia and Other (Iron deficiency anemia, peptic ulcer disease)
ED Past Surgical History: Cholecystectomy and Other (Partial gastrectomy)
Social History
Tobacco: Smoker
Alcohol: None
Drug: None
Personal:
Living: with family
Review of Systems
<Lola De PA-C - Last Filed: 05/18/25 11:39>
Review of Systems
Allergies reviewed?: Yes
All Other Systems: ROS reviewed and negative except as documented in HPI and ROS
Phy Exam
<Lola De PA-C - Last Filed: 05/18/25 11:39>
Physical Exam
Physical Exam:
Vitals: Hypotensive, otherwise vital signs stable. Afebrile
General: Patient is cachectic appearing, critically ill
Skin: Warm and dry, no rashes or lesions
Head: Normocephalic, atraumatic
Eyes: Sclera nonicteric.
Throat: Protecting airway
Neck: Normal ROM, no cervical spine tenderness, no meningismus
Cardiac: Regular rate and rhythm, no murmurs.
Pulm: Normal respiratory effort. Lungs clear. No wheezing
Abdomen: G-tube in place in left mid abdomen with mild surrounding leakage. Diffuse abdominal tenderness.
Rectal: No fecal impaction. Copious amounts of dark brown diarrhea, heme positive
Extremities: No evidence of cyanosis or edema
Neuro: AAOx3.
Psychiatric: Normal affect.
Sepsis
<Lola De PA-C - Last Filed: 05/18/25 11:39>
Sepsis Screening
Sepsis Assessment: Septic Shock
Sepsis Screening: Sustained Hypotension-SBP <90,MAP<65, or SBP decrease 40mmHg or more and Vasopressor support required
Sepsis Screen
Sepsis Screen: Septic Shock
Date: 05/18/25
Time: 11:31
Course
<Lola De PA-C - Last Filed: 05/18/25 11:39>
Orders/Labs/Results
Orders:
Orders
05/17/25 19:45
Complete Blood Count/With Diff Urgent
Comprehensive Metabolic Panel Urgent
Lipase Urgent
Magnesium Urgent
Comment: ADDED
Phosphorus Urgent
Comment: ADDED
05/17/25 20:08
CT Abd/pelvis W Iv Cont Urgent
Comment:
Reason For Exam: abdominal pain
0.9% Sodium Chloride 500 ml [Nss] 500 ml IV BOLUS
Pantoprazole [Protonix IV] 80 mg IV NOW STA
05/17/25 20:10
Electrocardiogram (*1) Urgent
Reason for Study: Fatigue / Weakness
EKG- Treatment ONCE
05/17/25 20:28
0.9% Sodium Chloride 1000 ml [Nss] 1,000 ml IV BOLUS
05/17/25 20:31
Calcium Gluconate 1,000 mg IV NOW STA
Dextrose 50%-Water [Dextrose 50% Syringe] 12.5 grams IV [id number] PRN
Dextrose 50%-Water [Dextrose 50% Syringe] 25 grams IV NOW STA
Insulin Human Regular [Novolin R] 5 units IV NOW STA
Sodium Bicarbonate 50 meq IV NOW STA
05/17/25 20:32
Bedside Glucose PRE IV Insulin- HyperK+ NOW
05/17/25 20:37
Urinalysis Reflex To Culture Urgent
Date Specimen was Collected: 05/18/25
Time Specimen was Collected: 01:50
05/17/25 20:46
Type+Screen Urgent
Lactic Acid Q4H
Comment: CANCEL 2nd LACTIC ACID IF 1st LACTIC ACID IS LESS THAN 2
Blood Culture Q30M
[place] Source: Blood/Venous
Specimen Description:
Blood Culture Q30M
[place] Source: Blood/Venous
Specimen Description:
Giardia/Cryptosporidium Ag Urgent
[place] Source: ST
Specimen Description:
Date Specimen was Collected: 05/17/25
Time Specimen was Collected: 20:14
Norovirus by PCR Routine
[place] Source: Feces/Stool
Specimen Description:
Date Specimen was Collected: 05/17/25
Time Specimen was Collected: 23:06
STOOL [C difficile Antigen & Toxins] Urgent
[place] Source: Feces/Stool
Specimen Description:
Date Specimen was Collected: 05/17/25
Time Specimen was Collected: 20:14
Stool Culture Urgent
[place] Source: Feces/Stool
Specimen Description:
Date Specimen was Collected: 05/17/25
Time Specimen was Collected: 20:14
05/17/25 20:55
Piperacillin/Tazo 3.375 Gram [Zosyn] 3.375 gram in 50 ml IV NOW
05/17/25 20:56
Vancomycin 1 Gram/200 ml [Vancocin] 1 gram in 200 ml IV NOW
05/17/25 21:03
NORepinephrine 4 MG/250 ML [Levophed] 4 mg in 250 ml IV NOW
Initial dose in mcg/min, then titrate:: 2
Titrate to keep:: MAP > 65 mmHg
Titrate by mcg/min:: 1-2 mcg/min
Frequency of titrations (minutes):: 5
Maximum dose in ICU in mcg/min:: 30
Maximum dose in IMU in mcg/min:: 8
Maximum dose in IVU in mcg/min:: 4
Begin to taper infusion when:: Remained at goal for 4hrs
Taper by mcg/min:: 1-2 mcg/min
Frequency of taper (minutes) if patient maintains goal:: 30
Taper to off?: Yes
If infusion off & no longer maintaining goal:: Contact Provider
05/17/25 21:10
Venous Blood Gas Urgent
%Oxygen/Room Air: 93
05/17/25 22:02
Bedside Glucose POST IV Insulin- HyperK+ Q1HX2,Q2HX2
05/17/25 22:17
Morphine Sulfate 2 mg IV NOW STA
05/17/25 22:40
Bedside Glucose Monitoring-ONCE As Directed
05/17/25 23:04
Admit/Transfer Patient As Directed
Co-Sign Provider:
Level of Care: Inpatient admission
Assign to:: ICU
Physician / Group: Va Leach
Diagnosis: septic shock, enteritis
Reason for Hospitalization: septic shock, enteritis
Expected length of stay greater than two midnights?: Yes
ELOS- Estimated Length of Stay in days: 4
I certify the patient meets the requirements for IP care: Yes
PRN Pain Medication Management As Directed
May give lesser potent ordered pain med per pt: Yes
preference::
Protocol:: Medication orders for pain may be administered in a
manner that supports deferring to patient preference
when the pt is:
- Requesting an ordered lesser potent pain medication.
Least to most potent pain medications are defined
as: acetaminophen < NSAID < tramadol < opioids
(morphine, oxycodone, hydromorphone).
- Requesting a lesser dose of the same medication IF
ORDERED.
- Requesting a less intrusive route of administration
if both routes are prescribed by the provider (PO <
IV).
CR Chest - 2 Views Urgent
Comment:
Reason For Exam: septic shock
05/17/25 23:05
Potassium Urgent
Comment: draw 2 hours after regular insulin IV administration
05/17/25 23:06
Add On - Microbiology Urgent
Tests Added?: Norovirus
Code Status As Directed
Resuscitation Status: Do not resuscitate
Reached after discussion with pt or family/Healthcare POA: Yes
05/17/25 23:07
DNR Bracelet Application ONCE
05/17/25 23:20
Hemoglobin Urgent
05/18/25 00:20
0.9% Sodium Chloride 1000 ml [Nss] 1,000 ml IV 75 mls/hr
NORepinephrine 4 MG/250 ML [Levophed] 4 mg in 250 ml IV PER PROTOCOL
Currently infusing. Continue current dose and titrate:: Yes
Titrate to keep:: SBP > 90 mmHg
Titrate by mcg/min:: 1-2 mcg/min
Frequency of titrations (minutes):: 5
Maximum dose in ICU in mcg/min:: 30
Maximum dose in IMU in mcg/min:: 8
Maximum dose in IVU in mcg/min:: 4
Begin to taper infusion when:: Remained at goal for 4hrs
Taper by mcg/min:: 1-2 mcg/min
Frequency of taper (minutes) if patient maintains goal:: 30
Taper to off?: Yes
If infusion off & no longer maintaining goal:: Contact Provider
05/18/25 00:20
Consult Biomass Power Plant Manager [Biomass Power Plant Manager Consult] Routine
Consulting Provider: Juan Harris
Was physician already notified: No
Reason for consult: septic shock, enteritis, poss infected fluid collection
Consult Notification Routine
Specialty to Notify: Surgical
Consult Notification Routine
Specialty to Notify: Biomass Power Plant Manager
Date consulting provider notified: 05/18/25
Time consulting provider notified: 07:53
Notified:: Provider
Consult Notification Routine
Specialty to Notify: Oncology
Date consulting provider notified: 05/18/25
Time consulting provider notified: 07:33
Notified:: Provider
ONCOLOGY CONSULT Routine
Consulting Provider: Emerald Lord
Was physician already notified: No
Reason for consult: unclear hx, biopsy with probable gastric cancer, here with sepsis
SURGICAL CONSULT Routine
Consulting Provider: Jesse Brown
Was physician already notified: No
Reason for consult: recent ex-lap and J-tube placement; poss infected fluid collection, septic
Activity As Directed
Activity Level: As Tolerated
Pneumatic Compression Sleeves As Directed
Type: Knee high
Vital Signs As Directed
Frequency: Per unit guidelines
DX Deep Vein Thrombosis Video Routine
05/18/25 03:25
Complete Blood Count/With Diff IN AM
05/18/25 03:26
Comprehensive Metabolic Panel IN AM
INR [Prothrombin Time] IN AM
Magnesium IN AM
05/18/25 04:00
Piperacillin/Tazo 3.375 Gram [Zosyn] 3.375 gram in 50 ml IV Q6H
05/18/25 Breakfast
NPO
Allow oral meds: Yes
Allow clear liquids: No
Abnormal Lab Results
05/17/25 05/17/25 05/17/25
19:45 21:10 23:00
WBC 17.6 H 10^3/uL
(4.8-10.8)
RBC 3.87 L 10^6/uL
(4.20-5.40)
Hgb 9.3 L g/dL
(12.0-16.0)
Hct 31.1 L %
(37.0-47.0)
MCV 80.4 L fL
(81.0-99.0)
MCH 24.0 L pg
(27.0-31.0)
MCHC 29.9 L g/dL
(33.0-37.0)
RDW 19.9 H %
(11.5-14.5)
Plt Count 781 H 10^3/uL
(130-400)
Abs Immat Gran (auto) 0.1 H 10^3/uL
(0-0.05)
Absolute Neuts (auto) 14.9 H 10^3/uL
(1.4-6.5)
Absolute Lymphs (auto) 0.9 L 10^3/uL
(1.2-3.4)
Absolute Monos (auto) 1.5 H 10^3/uL
(0.1-0.6)
Immature Gran % 0.6 H %
(0-0.5)
Neutrophils % 84.9 H %
(42.2-75.2)
Lymphocytes % 4.8 L %
(20.5-51.1)
VBG pH 7.24 L
(7.32-7.43)
VBG pO2 85 H mmHg
(30-50)
VBG HCO3 15.4 L mmol/L
(22-27)
Sodium 133 L mmol/L
(135-145)
Potassium 6.7 H* mmol/L
(3.5-5.1)
Chloride 108 H mmol/L
(98-107)
Carbon Dioxide 14 L* mmol/L
(22-30)
BUN 69 H mg/dl
(7-17)
Phosphorus 6.0 H mg/dl
(2.5-4.5)
AST 59 H U/L
(14-36)
ALT 93 H U/L
(0-35)
Albumin 3.3 L g/dl
(3.5-5.0)
POC Glucose 180 H mg/dl
(70-99)
05/17/25 19:45
05/17/25 23:05
Vital Signs
Initial and Last Documented VS:
Initial Vital Signs
Temp Pulse Resp BP Pulse Ox
98.2 F 87 20 88/62 94
05/17/25 19:35 05/17/25 19:35 05/17/25 19:35 05/17/25 19:35 05/17/25 19:35
Last Documented Vital Signs
Temp Pulse Resp BP Pulse Ox
99.1 F 69 13 98/52 95
05/18/25 11:27 05/18/25 10:00 05/18/25 10:00 05/18/25 10:00 05/18/25 09:45
<Zaid Thayer, DO - Last Filed: 05/17/25 21:07>
Orders/Labs/Results
Orders:
Orders
05/17/25 19:45
Complete Blood Count/With Diff Urgent
Comprehensive Metabolic Panel Urgent
Lipase Urgent
Magnesium Urgent
Comment: ADDED
Phosphorus Urgent
Comment: ADDED
05/17/25 20:08
CT Abd/pelvis W Iv Cont Urgent
Comment:
Reason For Exam: abdominal pain
0.9% Sodium Chloride 500 ml [Nss] 500 ml IV BOLUS
Pantoprazole [Protonix IV] 80 mg IV NOW STA
05/17/25 20:10
Electrocardiogram (*1) Urgent
Reason for Study: Fatigue / Weakness
EKG- Treatment ONCE
05/17/25 20:28
0.9% Sodium Chloride 1000 ml [Nss] 1,000 ml IV BOLUS
05/17/25 20:31
Calcium Gluconate 1,000 mg IV NOW STA
Dextrose 50%-Water [Dextrose 50% Syringe] 12.5 grams IV [id number] PRN
Dextrose 50%-Water [Dextrose 50% Syringe] 25 grams IV NOW STA
Insulin Human Regular [Novolin R] 5 units IV NOW STA
Sodium Bicarbonate 50 meq IV NOW STA
05/17/25 20:32
Bedside Glucose PRE IV Insulin- HyperK+ NOW
05/17/25 20:37
Urinalysis Reflex To Culture Urgent
Date Specimen was Collected: 05/18/25
Time Specimen was Collected: 01:50
05/17/25 20:46
Type+Screen Urgent
Lactic Acid Q4H
Comment: CANCEL 2nd LACTIC ACID IF 1st LACTIC ACID IS LESS THAN 2
Blood Culture Q30M
[place] Source: Blood/Venous
Specimen Description:
Blood Culture Q30M
[place] Source: Blood/Venous
Specimen Description:
Giardia/Cryptosporidium Ag Urgent
[place] Source: ST
Specimen Description:
Date Specimen was Collected: 05/17/25
Time Specimen was Collected: 20:14
Norovirus by PCR Routine
[place] Source: Feces/Stool
Specimen Description:
Date Specimen was Collected: 05/17/25
Time Specimen was Collected: 23:06
STOOL [C difficile Antigen & Toxins] Urgent
[place] Source: Feces/Stool
Specimen Description:
Date Specimen was Collected: 05/17/25
Time Specimen was Collected: 20:14
Stool Culture Urgent
[place] Source: Feces/Stool
Specimen Description:
Date Specimen was Collected: 05/17/25
Time Specimen was Collected: 20:14
05/17/25 20:55
Piperacillin/Tazo 3.375 Gram [Zosyn] 3.375 gram in 50 ml IV NOW
05/17/25 20:56
Vancomycin 1 Gram/200 ml [Vancocin] 1 gram in 200 ml IV NOW
05/17/25 21:03
NORepinephrine 4 MG/250 ML [Levophed] 4 mg in 250 ml IV NOW
Initial dose in mcg/min, then titrate:: 2
Titrate to keep:: MAP > 65 mmHg
Titrate by mcg/min:: 1-2 mcg/min
Frequency of titrations (minutes):: 5
Maximum dose in ICU in mcg/min:: 30
Maximum dose in IMU in mcg/min:: 8
Maximum dose in IVU in mcg/min:: 4
Begin to taper infusion when:: Remained at goal for 4hrs
Taper by mcg/min:: 1-2 mcg/min
Frequency of taper (minutes) if patient maintains goal:: 30
Taper to off?: Yes
If infusion off & no longer maintaining goal:: Contact Provider
05/17/25 21:10
Venous Blood Gas Urgent
%Oxygen/Room Air: 93
05/17/25 22:02
Bedside Glucose POST IV Insulin- HyperK+ Q1HX2,Q2HX2
05/17/25 22:17
Morphine Sulfate 2 mg IV NOW STA
05/17/25 22:40
Bedside Glucose Monitoring-ONCE As Directed
05/17/25 23:04
Admit/Transfer Patient As Directed
Co-Sign Provider:
Level of Care: Inpatient admission
Assign to:: ICU
Physician / Group: Va Leach
Diagnosis: septic shock, enteritis
Reason for Hospitalization: septic shock, enteritis
Expected length of stay greater than two midnights?: Yes
ELOS- Estimated Length of Stay in days: 4
I certify the patient meets the requirements for IP care: Yes
PRN Pain Medication Management As Directed
May give lesser potent ordered pain med per pt: Yes
preference::
Protocol:: Medication orders for pain may be administered in a
manner that supports deferring to patient preference
when the pt is:
- Requesting an ordered lesser potent pain medication.
Least to most potent pain medications are defined
as: acetaminophen < NSAID < tramadol < opioids
(morphine, oxycodone, hydromorphone).
- Requesting a lesser dose of the same medication IF
ORDERED.
- Requesting a less intrusive route of administration
if both routes are prescribed by the provider (PO <
IV).
CR Chest - 2 Views Urgent
Comment:
Reason For Exam: septic shock
05/17/25 23:05
Potassium Urgent
Comment: draw 2 hours after regular insulin IV administration
05/17/25 23:06
Add On - Microbiology Urgent
Tests Added?: Norovirus
Code Status As Directed
Resuscitation Status: Do not resuscitate
Reached after discussion with pt or family/Healthcare POA: Yes
05/17/25 23:07
DNR Bracelet Application ONCE
05/17/25 23:20
Hemoglobin Urgent
05/18/25 00:20
0.9% Sodium Chloride 1000 ml [Nss] 1,000 ml IV 75 mls/hr
NORepinephrine 4 MG/250 ML [Levophed] 4 mg in 250 ml IV PER PROTOCOL
Currently infusing. Continue current dose and titrate:: Yes
Titrate to keep:: SBP > 90 mmHg
Titrate by mcg/min:: 1-2 mcg/min
Frequency of titrations (minutes):: 5
Maximum dose in ICU in mcg/min:: 30
Maximum dose in IMU in mcg/min:: 8
Maximum dose in IVU in mcg/min:: 4
Begin to taper infusion when:: Remained at goal for 4hrs
Taper by mcg/min:: 1-2 mcg/min
Frequency of taper (minutes) if patient maintains goal:: 30
Taper to off?: Yes
If infusion off & no longer maintaining goal:: Contact Provider
05/18/25 00:20
Consult Biomass Power Plant Manager [Biomass Power Plant Manager Consult] Routine
Consulting Provider: Juan Harris
Was physician already notified: No
Reason for consult: septic shock, enteritis, poss infected fluid collection
Consult Notification Routine
Specialty to Notify: Surgical
Consult Notification Routine
Specialty to Notify: Biomass Power Plant Manager
Date consulting provider notified: 05/18/25
Time consulting provider notified: 07:53
Notified:: Provider
Consult Notification Routine
Specialty to Notify: Oncology
Date consulting provider notified: 05/18/25
Time consulting provider notified: 07:33
Notified:: Provider
ONCOLOGY CONSULT Routine
Consulting Provider: Emerald Lord
Was physician already notified: No
Reason for consult: unclear hx, biopsy with probable gastric cancer, here with sepsis
SURGICAL CONSULT Routine
Consulting Provider: Jesse Brown
Was physician already notified: No
Reason for consult: recent ex-lap and J-tube placement; poss infected fluid collection, septic
Activity As Directed
Activity Level: As Tolerated
Pneumatic Compression Sleeves As Directed
Type: Knee high
Vital Signs As Directed
Frequency: Per unit guidelines
DX Deep Vein Thrombosis Video Routine
05/18/25 03:25
Complete Blood Count/With Diff IN AM
05/18/25 03:26
Comprehensive Metabolic Panel IN AM
INR [Prothrombin Time] IN AM
Magnesium IN AM
05/18/25 04:00
Piperacillin/Tazo 3.375 Gram [Zosyn] 3.375 gram in 50 ml IV Q6H
05/18/25 Breakfast
NPO
Allow oral meds: Yes
Allow clear liquids: No
Abnormal Lab Results
05/17/25 05/17/25 05/17/25
19:45 21:10 23:00
WBC 17.6 H 10^3/uL
(4.8-10.8)
RBC 3.87 L 10^6/uL
(4.20-5.40)
Hgb 9.3 L g/dL
(12.0-16.0)
Hct 31.1 L %
(37.0-47.0)
MCV 80.4 L fL
(81.0-99.0)
MCH 24.0 L pg
(27.0-31.0)
MCHC 29.9 L g/dL
(33.0-37.0)
RDW 19.9 H %
(11.5-14.5)
Plt Count 781 H 10^3/uL
(130-400)
Abs Immat Gran (auto) 0.1 H 10^3/uL
(0-0.05)
Absolute Neuts (auto) 14.9 H 10^3/uL
(1.4-6.5)
Absolute Lymphs (auto) 0.9 L 10^3/uL
(1.2-3.4)
Absolute Monos (auto) 1.5 H 10^3/uL
(0.1-0.6)
Immature Gran % 0.6 H %
(0-0.5)
Neutrophils % 84.9 H %
(42.2-75.2)
Lymphocytes % 4.8 L %
(20.5-51.1)
VBG pH 7.24 L
(7.32-7.43)
VBG pO2 85 H mmHg
(30-50)
VBG HCO3 15.4 L mmol/L
(22-27)
Sodium 133 L mmol/L
(135-145)
Potassium 6.7 H* mmol/L
(3.5-5.1)
Chloride 108 H mmol/L
(98-107)
Carbon Dioxide 14 L* mmol/L
(22-30)
BUN 69 H mg/dl
(7-17)
Phosphorus 6.0 H mg/dl
(2.5-4.5)
AST 59 H U/L
(14-36)
ALT 93 H U/L
(0-35)
Albumin 3.3 L g/dl
(3.5-5.0)
POC Glucose 180 H mg/dl
(70-99)
05/17/25 19:45
05/17/25 23:05
Vital Signs
Initial and Last Documented VS:
Initial Vital Signs
Temp Pulse Resp BP Pulse Ox
98.2 F 87 20 88/62 94
05/17/25 19:35 05/17/25 19:35 05/17/25 19:35 05/17/25 19:35 05/17/25 19:35
Last Documented Vital Signs
Temp Pulse Resp BP Pulse Ox
99.1 F 69 13 98/52 95
05/18/25 11:27 05/18/25 10:00 05/18/25 10:00 05/18/25 10:00 05/18/25 09:45
<Lola De PA-C - Last Filed: 05/18/25 11:39>
MDM/Problems Addressed
Differential Diagnosis Includes:
Not limited to: Septic shock, urosepsis, colitis, C. difficile colitis, intra-abdominal infection, bowel obstruction, pyelonephritis, etc.
MDM/Problems Addressed:
74-year-old female presents with one day of diarrhea and abdominal pain. Patient with complicated medical history, recent J-tube placement w/ hx of gastric cancer. No fever, urinary symptoms, chest pain, or cough.
On arrival � patient is hypotensive however afebrile. On exam � patient very frail and ill appearing. Cardio/pulmonary assessment unremarkable. Abdomen soft with the diffuse tenderness. J-tube in place w/ surrounding leakage. Rectal exam reveals
copious amounts of heme positive dark liquid stool. No impaction.
Differential broad, as above. Concerned for sepsis, possibly secondary to intra-abdominal source given history. Also potential G.I. bleeding.
ED plan: septic work up including labs, lactic acid, blood cultures, UA. Will check CT scan abdomen/pelvis. Will send stool studies. Will give IV fluids wide open, IV Protonix. Blood consent signed into chart. Will start broad-spectrum antibiotics,
vancomycin/ zosyn.
Update: Labs reveal leukocytosis of 17,000 with anemia of 9.8. Chemistry with significant metabolic acidosis as well as acute hyperkalemia with potassium of 6.8. EKG does appear to have some peaked t-waves.
Patient given IV calcium, bicarbonate, insulin/dextrose to treat hyperkalemia.
Patient has remained hypotensive despite initial IV fluids. Given history of CHF/ flash pulmonary edema � will avoid aggressive fluid resuscitation, and start vasopressors. Levophed started in ED.
Update: CT scan shows enteritis and possible fluid collection in abdominal wall near J-tube site. BP is responding to levophed.
Patient meets criteria for septic shock given evidence of infection with hypotension requiring vasopressors. Suspect GI source at this time. No indication for blood transfusion currently.
Patient will require admission to ICU for further management of septic shock presumed from an intra-abdominal infection. Stool studies are still pending. Patient accepted to hospital service and transported to ICU.
Chronic conditions affecting care:
CHF, hypertension, stomach cancer with J-tube
Acute Exacerbation and/or Progression of Chronic Illness:
N/A
<Lola De PA-C - Last Filed: 05/18/25 11:39>
*Radiology
Radiology exam reviewed: radiology read reviewed
*Pulse Oximetry
SaO2: 93
Oxygen Mode of Delivery: Room air
Patient hypoxic: no
*EKG
Interpreted by ED Provider?: Yes
EKG Intrepretation Date: 05/17/25
Interpretation: abnormal
Comparison EKG: changes noted
Heart Rate: 81
Rate: normal
Rhythm: sinus
Junction: left axis deviation
Interval: normal QT interval
QRS Pattern: left bundle branch block
*Irrigation Engineer Interpretation
Rate: normal
Interpretation: normal
Heart Rate: 72
Rhythm: sinus
*Critical Care Note
Total Time (30-74mins, 75-104mins- exclusive of procedures): 40
comment:
Critical care statement: A total of 40 minutes of critical care time was provided for this patient. This includes management of unstable vital signs, evaluation of the patient at bedside, reviewing the patient's pertinent medical records, discussion
with consultants, review of old EKGs and review of pertinent medical records. This time with separate from time utilized to perform the aforementioned documented procedures
<Lola De PA-C - Last Filed: 05/18/25 11:39>
Patient Management
Discussion with other providers: Hospitalist
Escalation/DeEscalation of care consider admission/obs:
Admit for further management
ED Attending Note
<Lola De PA-C - Last Filed: 05/18/25 11:39>
-
Portions of this chart may have been created with voice recognition software.� Occasional wrong word or��sound alike� substitutions may have occurred due to the inherent limitations of voice recognition software.
<Zaid Thayer DO - Last Filed: 05/17/25 21:07>
ED Attending Note
Patient seen and examined by attending physician: Yes
I performed the substantive portion of visit, reviewed & personally made and approve the management plan that is documented in note by myself or ARINA.: Yes
ED Attending Note:
I evaluated the patient at bedside. The patient again has leukocytosis. Her bicarb is only 14 and her potassium is 6.7. Last med list includes spironolactone. The patient is critically ill in appearance. She appears cachectic and has a G-tube.
She is initially given IV fluids however she has a history of heart failure. Her blood pressures continue to drop despite IV fluids. We may need to hold off on aggressive fluids and we will start Levophed. The patient has a history of gastric
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
Discharge Plan
Departure
Patient Disposition: Admit
Date of Disposition: 05/17/25
Time of Disposition: 22:07
Presentation/result/management discussed w/ accepting MD/DO: Hospitalist
Discharge Problem:
Septic shock
Interventions
Interventions:
*Risk Screen - Suicide Last Done: 05/17/25 19:35
*General Assessment Last Done: 05/17/25 19:35
*Neglect/Abuse Screening Last Done: 05/17/25 19:35
*ED- Fall Risk Assessment Last Done: 05/17/25 19:35
*ED COVID-19 Vaccine History Last Done: 05/17/25 19:35
*Nursing Disposition Last Done: 05/18/25 00:24
GX-Cwwsag-Ogklumgwci Assessment Last Done: 05/17/25 19:57
Discharge Date and Time
Discharge Date/Time: 05/18/25 00:25
[2025-05-17] MEDS: NSS 500 IV (20:53)
[2025-05-17] MEDS: PROTONIX IV 80 MG IV (20:53)
[2025-05-17] MEDS: NSS 1000 IV (20:54)
[2025-05-17 21:19] LABS: Venous Blood Gas B.E. -11.1 mmol/L (-4 to +4); Venous Blood Gas O2 Sat % 97.9 %
[2025-05-17] MEDS: ZOSYN 50 IV (21:37)
[2025-05-17 21:40] LABS: Glucose - Point of Care 85 mg/dl (70-99)
[2025-05-17 21:40] LABS: Glucose - Point of Care 79 mg/dl (70-99)
[2025-05-17] MEDS: DEXTROSE 50% SYRINGE 25 GRAMS IV (21:40)
[2025-05-17] MEDS: NOVOLIN R 5 UNITS IV (21:41)
[2025-05-17] MEDS: LEVOPHED 250 IV (21:49)
[2025-05-17] MEDS: CALCIUM GLUCONATE 1000 MG IV (21:59)
[2025-05-17] MEDS: SODIUM BICARBONATE 50 MEQ IV (22:15)
[2025-05-17] MEDS: VANCOCIN 200 IV (22:20)
--- NOTE | 2025-05-17 22:35 | HPS.HSE ---
Addendum entered and electronically signed by Va Leach MD 05/17/25 23:44:
with drop in Hg, will start IV Protonix gtt and place GI consult now
-blood consent signed
j-tube with discharge - sending for culture
Original Note:
Family Physician
-
Family Physician: Anitra Aguilera
Chief Complaint
-
diarrhea and abdominal pain
History of Present Illness
Ms. Nica Lopez is a 74 yo woman with hx PUD s/p partial gastretcomy and Billroth II anastomosis (1999), recent diagnosis gastric cancer s/p J tube placement 05/02/25 [facility] with report of abdominal pain and
diarrhea.
Patient is seen with at bedside. She was feeling okay until yesterday when started to have abdominal pain. Yesterday she had multiple episodes of diarrhea, described as black with last episode earlier in ER visit. No fevers. No chest
pain or shortness of breath. She has not been able to gain weight since tube feeds initiated.
Medical History
Past Medical History
Past Medical History: Reports Other ( PUD s/p partial gastretcomy and Billroth II anastomosis (1999), recent diagnosis gastric cancer s/p J tube placement 05/02/25 )
Past Surgical History: Reports Other (see above )
Social History
Tobacco: Former Smoker
Alcohol: None
Family History
Family History: Not pertinent
Allergies / Home Medications
Allergies reflects when Allergies were last updated in [employer].
Home Medications with original date entered in [employer]
Allergy/Medication List:
Allergies
Allergy/AdvReac Type Severity Reaction Status Date / Time
No Known Allergies Allergy Verified 05/17/25 23:15
Home Medications
pantoprazole 40 mg tablet,delayed release 40 mg PO BID Gastrointestinal Issue 01/23/23
aspirin 81 mg tablet,delayed release 81 mg PO DAILY Heart Disease/Condition 10/08/23
atorvastatin 20 mg tablet 20 mg PO DAILY High Cholesterol 10/08/23
ferrous sulfate 142 mg (45 mg iron) tablet,extended release 142 mg PO Q48H Supplement 10/08/23
sacubitril 97 mg-valsartan 103 mg tablet (Entresto) 1 tab PO BID Heart Failure 10/25/24
carvedilol 12.5 mg tablet 6.25 mg PO BID Blood Pressure 11/01/24
furosemide 20 mg tablet (Lasix) 20 mg PO DAILY Heart Failure 11/01/24
spironolactone 25 mg tablet 12.5 mg PO DAILY Blood Pressure 11/01/24
cholecalciferol (vitamin D3) 25 mcg (1,000 unit) tablet (Vitamin D3) 25 mcg PO DAILY Supplement 04/20/25
cyanocobalamin (vitamin B-12) 1,000 mcg tablet (Vitamin B-12) 1,000 mcg PO DAILY Supplement 04/20/25
hydroxyurea 500 mg capsule 500 mg PO MOWEFR 04/20/25
Review of Systems
-
History Source: Patient
A 12 point ROS was completed and negative except as noted: Yes
Physical Exam
Vital Signs
Vital Signs
Temp Pulse Resp BP Pulse Ox
98.2 F 77 25 94/48 94
05/17/25 19:35 05/17/25 22:25 05/17/25 22:25 05/17/25 22:25 05/17/25 22:15
Physical Exam
General: Appears Chronically Ill (cachectic )
HEENT: PERRLA
Respiratory: Clear; No Wheezes
Cardiac: S1/S2 and Regular Rhythm; No JVD
GI: Other (midline surgical incision c/d/i; J-tube with mild surrounding leakage, no significant erythema )
Musculoskeletal: No Edema
Skin: Warm and Dry; No Rash
Neuro: AO x 3
Psych: Calm
Laboratory Results
-
05/17/25 19:45
Laboratory Results
Lactic Acid 1.0 mmol/L (0.7-2.0) 05/17/25 20:46
Total Bilirubin 0.5 mg/dl (0.2-1.3) 05/17/25 19:45
AST 59 U/L (14-36) H 05/17/25 19:45
ALT 93 U/L (0-35) H 05/17/25 19:45
Alkaline Phosphatase 119 U/L (38-126) 05/17/25 19:45
Lipase 179 U/L (23-300) 05/17/25 19:45
Data Reviewed
-
Diagnostic Radiology: Report Reviewed by me
Lab Data: Labs Reviewed by me
Impression/Plan
-
Ms. Nica Lopez is a 74 yo woman with hx PUD s/p partial gastretcomy and Billroth II anastomosis (1999), HFrEF (35-40% 05/24), recent diagnosis gastric cancer s/p J tube placement 05/02/25 presents to the ER from [facility] with report of
abdominal pain and diarrhea.
Triage VS: T 36.8, P 87, RR 20, BP 88/62, SpO2 94%
LABS: WBC 17.6, Hg 9.3, PLT 781, Na 133, K+ 6.7, Cl 108, CO2 14, BUN 69, Cr 0.7, Glucose 80, T. Bili 0.5, AST 59, ALT 93, lactate 1.0
CT
IMPRESSION:
CT findings are most suspicious for an enteritis.
Loculated fluid collection in the subcutaneous anterior abdominal wall at midline adjacent to the percutaneous jejunal catheter. This could represent a seroma or an infected fluid collection. Few small locules of gas along the course of the catheter
deep to the anterior abdominal wall.
MAR: IV Vanc/Zosyn, IV protonix, IVF, sodium bicarb, insulin and dextrose, Calcium
Septic Shock
Enteritis seen on CT
Loculated fluid collection near J-tube: seroma versus infected fluid collection
Diarrhea
-admit to ICU
-stool studies, C. Diff and Norvirus ordered
-follow up blood cultures
-Levophed started in ER, continue
-lactate 1.0
-s/p IVF, continue NS @ 80
-continue IV Zosyn
-consult Dr. Brown given concern for infected fluid collection at recent surgical site
-Wind Site Manager consult
-hold any tube feedings until evaluated by Dr. Brown tomorrow (and for possible need for work up UGIB)
Report of black stool/ possible Melena
-Hg stable, BUN elevated
-repeat Hg now
-IV Protonix BID
-consult GI if Hg drops, melena noticed (may also be explained by infectious colitis)
HFrEF
-TTE 05/24 with EF 35-40%
-hold EXECUTIVE ASSISTANT Lasix in setting of septic shock
-hold EXECUTIVE ASSISTANT Spironolactone and Entresto given hypotension and Hyper K
-hold EXECUTIVE ASSISTANT Coreg
Hyperkalemia
-s/p IV insulin/dextrose, bicarb, IVF, Calcium in the ER
-repeat K now
-hold EXECUTIVE ASSISTANT Spironolactone and Entresto
Recent diagnosis of probably Gastric cancer per biopsy report
-s/p ex-alp without finding of metastatic disease in abdomen and placement J-tube on 04/28/25
-consult Oncology
-patient reports continued weight loss since starting tube feedings
DVT PPx SCD
DNR - discussed on admission
Total Critical Care Time 60 minutes. I was immediately available to the patient and staff. I personally examined, reviewed labs, diagnostic images/reports, interpretations, treatment plans, discussed patient care with other providers and family
or caregivers (if patient is unable to make decisions), entered orders as appropriate and documented the medical record.
[2025-05-17 23:01] LABS: Glucose - Point of Care 180 mg/dl (70-99)
[2025-05-17 23:25] LABS: Potassium 4.4 mmol/L (3.5-5.1)
[2025-05-17 23:29] LABS: Hemoglobin 7.8 g/dL (12.0-16.0)
[2025-05-17 23:57] LABS: Glucose - Point of Care 179 mg/dl (70-99)
[2025-05-18] VITALS (72 sets, daily range): BP systolic 78–151; BP diastolic 40–76; BMI 14.4
[2025-05-18 00:14] LABS: APTT 30.1 Sec (23.4-35.0); INR 1.23; PT 16.0 Sec (11.4-14.6)
[2025-05-18 00:16] LABS: Magnesium 2.3 mg/dl (1.6-2.3)
[2025-05-18] MEDS: SODIUM BICARBONATE 1150 MEQ IV ×2 (01:49→10:00)
--- NOTE | 2025-05-18 02:00 | PTCARENOTE ---
Rec'd pt from ED, admitted to ICU with with septic shock/enteritis requiring levophed to maintain MAP goals. Pt alert and oriented with at bedside. C/o arthritis pain as well as lower abdominal pain. Not currently interested in narcotics,
Ofirmev ordered and given. Pt now resting comfortably. Bicarb gtt/protonix gtt ordered. Afebrile, NSR midline placed by VAT. Labs resulted/treated in ED. Pulses palpable, no edema. 2L nasal cannula placed for Pulse Ox reading 89% on room air. Now
96%. Lungs clear. NPO status maintained. J-Tube clamped. Stool studies pending. Dias placed as ordered for critical I&Os. Skin intact, preventative foam on sacrum. Pt cachetic/bony. Will monitor.
[2025-05-18] MEDS: OFIRMEV 100 IV (02:04)
[2025-05-18] MEDS: PROTONIX 100 IV (03:24)
[2025-05-18] MEDS: ZOSYN 50 IV ×4 (03:29→21:37)
[2025-05-18 03:48] LABS: Glucose - Point of Care 122 mg/dl (70-99)
[2025-05-18 03:56] LABS: Urine Character Cloudy (Clear)
[2025-05-18 03:58] LABS: Hematocrit 26.5 % (37.0-47.0); Hemoglobin 8.1 g/dL (12.0-16.0); Mean Corp Hgb Conc. 30.6 g/dL (33.0-37.0); Mean Corpuscular Volume 81.8 fL (81.0-99.0); Nucleated Red Blood Cells % 0 %; Platelet Count 771 10^3/uL (130-400); Red Cell Dist. Width 19.8 % (11.5-14.5)
[2025-05-18 04:04] LABS: INR 1.10; PT 14.7 Sec (11.4-14.6)
[2025-05-18 04:17] LABS: Urine Squamous Cell >30 /LPF (Few)
[2025-05-18 04:18] LABS: ALT (SGPT) 90 U/L (0-35); AST (SGOT) 52 U/L (14-36); Albumin 2.8 g/dl (3.5-5.0); Alkaline Phosphatase 110 U/L (38-126); Blood Urea Nitrogen 65 mg/dl (7-17); Calcium 9.4 mg/dl (8.4-10.2); Carbon Dioxide 17 mmol/L (22-30); Chloride 106 mmol/L (98-107); Estimated Creatinine Clearance 33 ml/min; Glucose 110 mg/dl (70-99); Magnesium 2.1 mg/dl (1.6-2.3); Potassium 5.4 mmol/L (3.5-5.1); Sodium 133 mmol/L (135-145); Total Protein 6.1 g/dl (6.3-8.2); eGFR > 60.00
[2025-05-18 04:19] LABS: Urine Red Blood Cell 0-2 /HPF (0-2)
--- NOTE | 2025-05-18 06:36 | CON.GI ---
Addendum entered and electronically signed by Ed Bender MD 05/18/25 10:00:
I saw and examined the patient.
The STEM PROCESSING MACHINE OPERATOR or PA's note was reviewed and I agree with the note.
Comment: 74yo female with distant hx partial gastrectomy/BII surgery. Recently had EGD/colonoscopy for eval of anemia. EGD showed retained food, gastroparesis, and nodularity/ulceration at anastomosis. Bx showed low grade dysplasia. Pt referred
to Surgical Oncology Dr Brown due to suspicion for underlying malignancy. Given her cachexia and weight loss, plan was for feeding J tube placement prior to gastric resection. She had J tube placed 04/28 and started TF. Now admitted with abd pain
and purulent drainage from J tube site. CT shows possible enteritis and possible infected fluid collection along course of catheter. GI consulted for anemia. Stool heme positive. On pressors for hypotension/sepsis
REC:
Her anemia/heme positive stool is likely due to her anastomotic ulcer, which may be an underlying gastric cancer, path showed at least LGD from superficial biopsies
Transfuse PRN
PPI BID adequate for now
Continue sepsis management per primary team. Abx, pressors
Surg Onc and Onc have also been consulted
Original Note:
Consultation
-
Date/Time Consultation Requested: 05/18/25 0020
Date/Time Consultation Performed: 05/18/25 0830
Requesting Provider: aV Leach MD
Performing Provider: BEBETO Joshua, Ed Bender MD
Reason for Consultation: anemia, wt loss, abdominal pain
Medical History
Chief Complaint / HPI
Chief Complaint: abdominal pain, diarrhea
History of Present Illness:
Pt is a 74yo with hx longstanding anemia, PUD with prior surgical intervention with partial gastrectomy and Billroth II anastomosis ,large gastric polyps with removal with Dr. Faria in past, colon polyps, mayo's esophagus, HTN, prior ramy,
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 She had colonoscopy and several EGD's with noted retained food then completed EGD in February with noted low grade dysplasia on anastomosis and ulceration . She has seen Jesse brown and had J tube
placed 04/28 and presents from [facility] with abdominal pain, diarrhea, and black stools. On admission noted with hypotension requiring pressors, WBC 17,6, hbg 9.3, platelets 781, Na 133, K 6.7, cl 108, Co2 14, BUN 69, phos 6, mag 2.3,
bili 0.5, AST 59, ALT 93, alk phos 119, albumin 3.3. CT on admission with IV contrast with concern for enteritis, with noted loculated fluid collection in SQ abdominal wall adjacent to Jejunal catheter seroma vs infected fluid collection with few
small locules of gas along course of catheter deep in abdominal wall with now admission with concern for sepsis.
In review with patient she admits to wt loss over last 1-2 weeks. She then began with abdominal pain around J tube side and diarrhea leading to admission. She currently admits to weakness and continued abdominal pain with diarrhea. She
denies issues with nausea, vomiting, or blood in stools. Was noted with black stool prior to admission now brown liquid. Pt also reports change in tube feed regiment.
Procedures in past year:
05/17/25 CT A/p with IV contrast only with concern for enteritis, with noted loculated fluid collection in SQ abdominal wall adjacent to Jejunal catheter seroma vs infected fluid collection with few small locules of gas along course of catheter
deep in abdominal wall.
02/28/25- EGD [facility] - Esophageal mucosal changes suspicious for Mayo's esophagus. Biopsied - A medium amount of food (residue) in the stomach Removal was successful - Billroth II gastrojejunostomy was found,
characterized by nodularity, edema and ulceration - Granular, nodular and ulcerated mucosa at anastomosis. Biopsied - Multiple gastric polyps. Biopsied. bx nodularity anastomosis low grade dysplasia, esophageal bx with
indefinite for dysplasia with intestinal metaplasia
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 Biopsied. - A large amount of food (residue) in the stomach - Multiple gastric polyps. Biopsied polyp stomach HP, esophagus intestinal
metaplasia no dysplasia
2/14/25 colonoscopy [facility] Preparation of the colon was fair. - One 5 mm polyp at the hepatic flexure, removed with a cold snare. Resected and retrieved - Diverticulosis in the sigmoid colon and in the
descending colon- Erythematous mucosa in the ascending colon.bx tubular adenoma
10/14/24- EGD [facility] - The procedure was aborted due to presence of food.- [place]-colored mucosa consistent with Mayo's esophagus. Biopsied.
- A large amount of food (residue) in the stomach. - A few gastric polyps. Biopsied. hyperplastic polyps, esophagus focal intestinal metaplasia no dysplasia
.
Past Medical History
Past Medical History: Cancer ( recent EGD 02/2025 with bx of nodular anastomosis with low grade dysplasia, with J tube placement 05/02/25 ), HTN and Other (anemia , bells palsy, PUD, hx large gastric polyps, colon polyps, mayo's esophagus )
Past Surgical History: Cholecystectomy and Other (partial gastrectomy and biliroth II anastomosis, bone marrow biopsy, J tube placement 04/28/25 )
Social History
Tobacco: Former Smoker
Alcohol: None
Drug: None
Personal:
Living: Retirement
Employment: Retired
Family History
Family History: Reviewed & Not Pertinent
Allergies / Home Medications
Allergy/AdvReac Type Severity Reaction Status Date / Time
No Known Allergies Allergy Verified 05/17/25 23:15
�Medication �Instructions �Recorded
pantoprazole 40 mg tablet,delayed 40 mg PO BID Gastrointestinal Issue 01/23/23
release
aspirin 81 mg tablet,delayed 81 mg PO DAILY Heart 10/08/23
release Disease/Condition
atorvastatin 20 mg tablet 20 mg PO DAILY High Cholesterol 10/08/23
ferrous sulfate 142 mg (45 mg 142 mg PO Q48H Supplement 10/08/23
iron) tablet,extended release
sacubitril 97 mg-valsartan 103 mg 1 tab PO BID Heart Failure 10/25/24
tablet (Entresto)
carvedilol 12.5 mg tablet 6.25 mg PO BID Blood Pressure 11/01/24
furosemide 20 mg tablet (Lasix) 20 mg PO DAILY Heart Failure 11/01/24
spironolactone 25 mg tablet 12.5 mg PO DAILY Blood Pressure 11/01/24
cholecalciferol (vitamin D3) 25 25 mcg PO DAILY Supplement 04/20/25
mcg (1,000 unit) tablet (Vitamin
D3)
cyanocobalamin (vitamin B-12) 1,000 mcg PO DAILY Supplement 04/20/25
1,000 mcg tablet (Vitamin B-12)
hydroxyurea 500 mg capsule 500 mg PO MOWEFR 04/20/25
Review of Systems
-
History Source: Patient
Constitutional: Reports Weight Loss and Fatigue
EENT: Reports No Symptoms
Respiratory: Reports No Symptoms
Cardiac: Reports No Symptoms
Abdomen/GI: Reports Abdominal Pain, Diarrhea and Black Stools (prior to admission)
: Reports No Symptoms
Musculoskeletal: Reports No Symptoms
Neurological: Reports Weakness
Endocrine: Reports No Symptoms
Hematologic/Lymphatic: Reports No Symptoms
Vital Signs
Temp Pulse Resp BP Pulse Ox
98 F 67 12 111/55 98
05/18/25 01:55 05/18/25 05:15 05/18/25 05:15 05/18/25 05:00 05/18/25 05:15
Physical Exam
Exam
General: Other (ill appearing with cachexia and temporal wasting )
HEENT: Normocephalic and Anicteric
Respiratory: Clear
Cardiac: Regular Rhythm
GI: Soft, Non Distended and Tender (around Jtube with some pus at J tube site )
Musculoskeletal: No Clubbing and No Cyanosis
Skin: Warm and Dry
Neuro: Awake, Alert, Oriented and Other (weak but answering all questions )
Psych: Calm
Results
WBC 21.1 10^3/uL (4.8-10.8) H 05/18/25 03:25
Hgb 8.1 g/dL (12.0-16.0) L 05/18/25 03:25
Hct 26.5 % (37.0-47.0) L 05/18/25 03:25
MCV 81.8 fL (81.0-99.0) 05/18/25 03:25
Plt Count 771 10^3/uL (130-400) H 05/18/25 03:25
Absolute Neuts (auto) 17.9 10^3/uL (1.4-6.5) H 05/18/25 03:25
PT 14.7 Sec (11.4-14.6) H 05/18/25 03:26
INR 1.10 05/18/25 03:26
APTT 30.1 Sec (23.4-35.0) 05/17/25 23:54
Sodium 133 mmol/L (135-145) L 05/18/25 03:26
Potassium 5.4 mmol/L (3.5-5.1) H 05/18/25 03:26
Chloride 106 mmol/L (98-107) 05/18/25 03:26
Carbon Dioxide 17 mmol/L (22-30) L 05/18/25 03:26
BUN 65 mg/dl (7-17) H 05/18/25 03:26
Creatinine 0.9 mg/dL (0.6-1.0) 05/18/25 03:26
Calcium 9.4 mg/dl (8.4-10.2) 05/18/25 03:26
Total Bilirubin 0.4 mg/dl (0.2-1.3) 05/18/25 03:26
AST 52 U/L (14-36) H 05/18/25 03:26
ALT 90 U/L (0-35) H 05/18/25 03:26
Alkaline Phosphatase 110 U/L (38-126) 05/18/25 03:26
Lipase 179 U/L (23-300) 05/17/25 19:45
Diagnostic Image Results:
05/17/25 CT A/p with IV contrast only with concern for enteritis, with noted loculated fluid collection in SQ abdominal wall adjacent to Jejunal catheter seroma vs infected fluid collection with few small locules of gas along course of catheter
deep in abdominal wall.
02/28/25- EGD [facility] - Esophageal mucosal changes suspicious for Mayo's esophagus. Biopsied - A medium amount of food (residue) in the stomach Removal was successful - Billroth II gastrojejunostomy was found,
characterized by nodularity, edema and ulceration - Granular, nodular and ulcerated mucosa at anastomosis. Biopsied - Multiple gastric polyps. Biopsied. bx nodularity anastomosis low grade dysplasia, esophageal bx with
indefinite for dysplasia with intestinal metaplasia
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 Biopsied. - A large amount of food (residue) in the stomach - Multiple gastric polyps. Biopsied polyp stomach HP, esophagus intestinal
metaplasia no dysplasia
10/14/24 colonoscopy [facility] Preparation of the colon was fair. - One 5 mm polyp at the hepatic flexure, removed with a cold snare. Resected and retrieved - Diverticulosis in the sigmoid colon and in the
descending colon- Erythematous mucosa in the ascending colon.bx tubular adenoma
10/14/24- EGD [facility] - The procedure was aborted due to presence of food.- [place]-colored mucosa consistent with Mayo's esophagus. Biopsied.
- A large amount of food (residue) in the stomach. - A few gastric polyps. Biopsied. hyperplastic polyps, esophagus focal intestinal metaplasia no dysplasia
��08/01/20 COLON ([facility])- 3mm cecal adenoma. Tortuous SC/HF. Friability ascending colon. Diverticulosis. Hemorrhoids
05/04/20 UGI- Partial gastrectomy with hx BII. Large amount of filling defects in gastric remnant as well as preferential filling of one limb at level of the gastrojejunostomy with SB dilatation.
05/01/20 GES- No findings to suggest gastroparesis
04/17/20 MRI- Hepatomegaly. Resolution of previous ascites. Cholecystectomy. Prior partial gastrectomy and BII. Moderate food debri in stomach and proximal afferent limb. Mild distention of afferent limb. No enhancing mass or focal lesion in stomach
as described on previous CT. Dilated distal anterior afferent limb.
04/10/20 EGD ([facility])- Large amount food in stomach, removed. BII anastomosis edema, erosion, friable. body proximal to anastomosis 50 x 50mm bx negative HP. Large polyoid mass gastric body other side of GJ anstomosis opposing the ulcer. 14mm
polyp in gastric body growing from firable mass removed. 10mm gastric polyp adjacent to ulcer removed. Bx all negative for carcinoma.
03/20/20 EGD ([facility])- Irregular z line. Food in stomach
02/21/20 EGD ([facility])- Grade C esophagitis. in body into antrum to staple line 50-60mm bx negative HP. Scalloped duodenal fold bx negative celiac. Food in antrum. Antral gastritis bx negative HP.
Assessment / Plan
-
Pt is a 74yo with hx longstanding anemia, PUD with prior surgical intervention with partial gastrectomy and Billroth II anastomosis ,large gastric polyps with removal with Dr. Faria in past, colon polyps, mayo's esophagus, HTN, prior ramy,
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 She had colonoscopy and several EGD's with noted retained food then completed EGD in February with noted low grade dysplasia on anastomosis and ulceration . She has seen Jesse brown and had J tube
placed 04/28 and presents from [facility] with abdominal pain, diarrhea, and black stools. On admission noted with hypotension requiring pressors, WBC 17,6, hbg 9.3, platelets 781, Na 133, K 6.7, cl 108, Co2 14, BUN 69, phos 6, mag 2.3,
bili 0.5, AST 59, ALT 93, alk phos 119, albumin 3.3. CT on admission with IV contrast with concern for enteritis, with noted loculated fluid collection in SQ abdominal wall adjacent to Jejunal catheter seroma vs infected fluid collection with few
small locules of gas along course of catheter deep in abdominal wall with now admission with concern for sepsis. In review with patient she admits to wt loss over last 1-2 weeks. She then began with abdominal pain around J tube side and diarrhea
leading to admission. Pt also report recent change in tube feed regiment.
Procedures in past year:
05/17/25 CT A/p with IV contrast only with concern for enteritis, with noted loculated fluid collection in SQ abdominal wall adjacent to Jejunal catheter seroma vs infected fluid collection with few small locules of gas along course of catheter
deep in abdominal wall.
02/28/25- EGD [facility] - Esophageal mucosal changes suspicious for Mayo's esophagus. Biopsied - A medium amount of food (residue) in the stomach Removal was successful - Billroth II gastrojejunostomy was found,
characterized by nodularity, edema and ulceration - Granular, nodular and ulcerated mucosa at anastomosis. Biopsied - Multiple gastric polyps. Biopsied. bx nodularity anastomosis low grade dysplasia, esophageal bx with
indefinite for dysplasia with intestinal metaplasia
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 Biopsied. - A large amount of food (residue) in the stomach - Multiple gastric polyps. Biopsied polyp stomach HP, esophagus intestinal
metaplasia no dysplasia
10/14/24 colonoscopy [facility] Preparation of the colon was fair. - One 5 mm polyp at the hepatic flexure, removed with a cold snare. Resected and retrieved - Diverticulosis in the sigmoid colon and in the
descending colon- Erythematous mucosa in the ascending colon.bx tubular adenoma
10/14/24- EGD [facility] - The procedure was aborted due to presence of food.- [place]-colored mucosa consistent with Mayo's esophagus. Biopsied.
- A large amount of food (residue) in the stomach. - A few gastric polyps. Biopsied. hyperplastic polyps, esophagus focal intestinal metaplasia no dysplasia
-sepsis/leukocytosis
-CT with concern for enteritis
-CT with loculated fluid abdominal wall adjacent to Jejunal catheter
-hypotension requiring pressors
-displaced J tube after admission
-anemia chronic with hx prior GI work up and bone marrow bx with heme eval
-concern for black stool prior to admission with brown stool on exam 05/18
-recent concern for low grade dysplasia at Billroth anastomosis with nodularity and ulceration
-electrolyte imbalance- hyperkalemia, hyperphosphatemias
-increased transaminases
-thrombocytosis
other med problems:
- PUD with prior surgical intervention with partial gastrectomy and Billroth II anastomosis
-large gastric polyps with removal with Dr. Faria in past
-colon polyps
-mayo's esophagus
-HTN
-prior ramy
-fajardo's palsy
PLAN:
etiology of symptoms with concern for enteritis, local J tube infection with fluid collection vs other with sepsis
currently on pressors with hypotension
stool studies with neg c-diff other cx pending
cont abx
NPO
await Dr. Brown evaluation
currently stool brown, liquid and heme + -- but reported black stool prior to admission may be from known ulceration at anastomosis site vs other
trend hbg 9.3- 7.8- 8.1 if drop below 7 consider transfusion
ok to change PPI to BID
for dietary evaluation with electrolyte imbalance and recent change in tube feed regiment per patient
for heme eval -reviewed with Dr. Rudd and nursing staff
after pt seen in eval nursing report J tube fell out with turning -- advised to contact Dr. Brown to review as he placed tube in March
-
-
Thank you for consultation and allowing me to participate in the patient's care. Please call the production mechanic GI physician during the after hours with any questions or concerns.
--- NOTE | 2025-05-18 07:14 | W.PN.HOSP.TC ---
Today's Communication/Plan
-
wean pressor support as tolerated
cont bicarb gtt follow up BMP noon
cont empiric abx vanc zosyn
IV tylenol prn
strict NPO for now
Assessment / Plan
Assessment / Plan
Physical Exam
General: Appears Chronically Ill (cachectic), mild moderate distress d/t pain J-tube site
HEENT: PERRLA
Respiratory: Clear; No Wheezes
Cardiac: S1/S2 and Regular Rhythm; No JVD
GI: J-tube site bandage clean dry intact, J-tube since fallen out
Musculoskeletal: No Edema
Skin: Warm and Dry; No Rash
Neuro: AO x 3 conversant coherent
Psych: Calm
Ms. Nica Lopez is a 74 yo woman with hx PUD s/p partial gastretcomy and Billroth II anastomosis (1999), HFrEF (35-40% 05/24), recent diagnosis gastric cancer s/p J tube placement 05/02/25 [facility] with report of
abdominal pain and diarrhea.
CT
IMPRESSION:
CT findings are most suspicious for an enteritis.
Loculated fluid collection in the subcutaneous anterior abdominal wall at midline adjacent to the percutaneous jejunal catheter. This could represent a seroma or an infected fluid collection. Few small locules of gas along the course of the catheter
deep to the anterior abdominal wall.
Septic Shock
Enteritis seen on CT
Loculated fluid collection near J-tube: seroma versus infected fluid collection, likely infected J-tube site, noted reports pustular appearance around J-site, J-tube since fallen out
Diarrhea
-ICU admit
-stool studies, C. Diff neg and Norvirus pending
-Blood cx's ngtd
-cont Levophed, wean as tolerated
-lactate 1.0
-cont bicarb gtt follow up repeat BMP at noon
-continue IV Zosyn, empiric Vancomycin
-consult Dr. Brown given concern for infected fluid collection at recent surgical site
-Extension Service Supervisor consult
-strict NPO for now
Report of black stool/ possible Melena
-Hg stable, BUN elevated
-trend Hgb
-IV Protonix BID
-consult GI
HFrEF
-TTE 05/24 with EF 35-40%
-hold HEAD OF BIOLOGY Lasix in setting of septic shock
-hold HEAD OF BIOLOGY Spironolactone and Entresto given hypotension and Hyper K
-hold HEAD OF BIOLOGY Coreg
Hyperkalemia
-s/p IV insulin/dextrose, bicarb, IVF, Calcium in the ER
-hold HEAD OF BIOLOGY Spironolactone and Entresto
-monitor K follow up BMP Noon
Recent diagnosis of probably Gastric cancer per biopsy report
-s/p ex-alp without finding of metastatic disease in abdomen and placement J-tube on 04/28/25
-consult Oncology
DVT PPx SCD
DNR
Total Critical Care Time 50 minutes. I was immediately available to the patient and staff. I personally examined, reviewed labs, diagnostic images/reports, interpretations, treatment plans, discussed patient care with other providers, patient and
patient's , entered orders as appropriate and documented the medical record.
Anticipated Discharge: > 48 hours
Subjective/Interval History
-
Date of Service: May 18, 2025
mild mod distress d/t pain at J-tube site, tube has since fallen out. Dressing in place, clean dry intact.
Objective Data
-
Labs:
Laboratory Results
05/17/25 05/17/25 05/17/25
19:45 23:05 23:20
WBC 17.6 H
Hgb 9.3 L 7.8 L
Hct 31.1 L
Plt Count 781 H
PT
INR
APTT
Sodium 133 L
Potassium 6.7 H* 4.4 D
Chloride 108 H
Carbon Dioxide 14 L*
BUN 69 H
Creatinine 0.7
Glucose 80
Calcium 9.8
Total Bilirubin 0.5
AST 59 H
ALT 93 H
Alkaline Phosphatase 119
05/17/25 05/18/25 05/18/25
23:54 03:25 03:26
WBC 21.1 H
Hgb 8.1 L
Hct 26.5 L
Plt Count 771 H
PT 16.0 H 14.7 H
INR 1.23 1.10
APTT 30.1
Sodium 133 L
Potassium 5.4 H
Chloride 106
Carbon Dioxide 17 L
BUN 65 H
Creatinine 0.9
Glucose 110 H
Calcium 9.4
Total Bilirubin 0.4
AST 52 H
ALT 90 H
Alkaline Phosphatase 110
Vital Signs:
Vital Signs
Temp Pulse Resp BP Pulse Ox
98 F 70 13 94/58 96
05/18/25 01:55 05/18/25 06:45 05/18/25 06:45 05/18/25 06:30 05/18/25 06:45
I&O
05/17/25 05/18/25 05/19/25
06:59 06:59 06:59
Intake Total 810.0 / 810.0
Output Total 260 / 260
Balance 550.0 / 550.0
--- NOTE | 2025-05-18 07:56 | CON.INTV ---
Addendum entered and electronically signed by Juan Harris MD 05/18/25 15:15:
Patient progressively more hypotensive through the day. Reevaluated multiple times
Left-sided PICC line attempted unsuccessful. IV therapy tried to convert right side midline into PICC, unsuccessful. Lack of reliable peripheral access. Consent obtained from patient and her at bedside and proceeded with right IJ central
line placement
- Additional 250 mL LR bolus
- Continue maintenance bicarb containing fluids
- Serial lactate, check stat VBG
- Add vasopressin, titrate epinephrine up. Low threshold to start steroids if needed
- Continue broad-spectrum antibiotics, follow-up on cultures
Additional critical care time spent 38 minutes
Original Note:
Consultation
Consultation Request
Date/Time Consultation Requested: 00:20 05/18/25
Date/Time Consultation Performed: 7:00 05/18/25
Medical History
-
History of Present Illness:
74yof H PUD s/p partial gastrectomy and Billroth II anastoamosis 1999 with recent EGD with dysplasia/metaplasia found on biopsy s/p J tube placement 05/02/25 presenting with new abdominal pain and diarrhea with findings of abscess on CT.
Today, pt reports feeling comfortable with no abdominal pain. Denies diarrhea, fever, chills, nausea, vomiting. Reports mild pain at incision site.
Pt has remote history of PUD and partial gastrectomy in which she follows GI. A recent endoscopy revealed concerns for dysplasia/metaplasia. Plans for further gastrectomy/ Ashia en y were deferred due to her nutritional status to further evaluate
gastric cancer. In conjunction with recommendation from her timber sizer, the surgeon decided to place a j tube initially to improve nutritional status and proceed with further surgery months from now. J tube was placed 05/02/25 and pt was discharged
to rehab. Nica reports doing well in rehab with no issues and using her j tube for feeds until yesterday when she began having abdominal pain and diarrhea that have since subsided since being admitted.
Past Medical History
Past Medical History: CAD, CHF (reduced EF 35-40% msot recent echo) and HTN
Past Surgical History: Bowel Resection (partial gastrecomy)
Allergies / Home Medications
Allergies
Allergy/AdvReac Type Severity Reaction Status Date / Time
No Known Allergies Allergy Verified 05/17/25 23:15
Home Medications
�Medication �Instructions �Recorded �Confirmed �Last Taken �Type
pantoprazole 40 mg tablet,delayed 40 mg PO BID Gastrointestinal Issue 01/23/23 05/17/25 04/28/25 08:30 History
release
aspirin 81 mg tablet,delayed 81 mg PO DAILY Heart 10/08/23 05/17/25 04/24/25 History
release Disease/Condition
atorvastatin 20 mg tablet 20 mg PO DAILY High Cholesterol 10/08/23 05/17/25 04/28/25 08:30 History
ferrous sulfate 142 mg (45 mg 142 mg PO Q48H Supplement 10/08/23 05/17/25 04/28/25 08:30 History
iron) tablet,extended release
sacubitril 97 mg-valsartan 103 mg 1 tab PO BID Heart Failure 10/25/24 05/17/25 04/28/25 08:30 History
tablet (Entresto)
carvedilol 12.5 mg tablet 6.25 mg PO BID Blood Pressure 11/01/24 05/17/25 04/28/25 08:30 History
furosemide 20 mg tablet (Lasix) 20 mg PO DAILY Heart Failure 11/01/24 05/17/25 04/28/25 08:30 History
spironolactone 25 mg tablet 12.5 mg PO DAILY Blood Pressure 11/01/24 05/17/25 04/28/25 08:30 History
cholecalciferol (vitamin D3) 25 25 mcg PO DAILY Supplement 04/20/25 05/17/25 04/28/25 08:30 History
mcg (1,000 unit) tablet (Vitamin
D3)
cyanocobalamin (vitamin B-12) 1,000 mcg PO DAILY Supplement 04/20/25 05/17/25 04/28/25 08:30 History
1,000 mcg tablet (Vitamin B-12)
hydroxyurea 500 mg capsule 500 mg PO MOWEFR 04/20/25 04/28/25 04/28/25 08:30 History
Review of Systems
-
History Source: Patient
Constitutional: No Symptoms
Vitals / Labs / Diagnostic Testing
Vital Signs
Temp Pulse Resp BP Pulse Ox
98 F 67 12 101/54 89
05/18/25 01:55 05/18/25 07:15 05/18/25 07:15 05/18/25 07:00 05/18/25 07:22
Lab Data
05/18/25 03:25
05/18/25 03:26
Laboratory Results
05/17/25 05/18/25
23:54 03:26
PT 16.0 H 14.7 H
INR 1.23 1.10
APTT 30.1
Diagnostic Testing:
Physical Exam
-
HEENT: Normocephalic
Cardiovascular: S1/S2, Regular Rhythm and Peripheral Edema (negative)
Respiratory: Clear and Non-Labored Respirations
GI: Soft, Non Distended and Non Tender (j tube with yellow discharge surrounding site)
Neurology: AO x 3 and No Motor Deficits
Skin: Warm and Dry
General: Comfortable and Other
Exam:
Pt lying in bed, cachectic
Assessment
-
74yof PMH HFreF, CAD, PUD s/p partial gastrectomy and Billroth II anastomosis 1999 with recent EGD with dysplasia/metaplasia found on biopsy s/p J tube placement 05/02/25 presenting with new abdominal pain and diarrhea with findings of fluid
collection near j tube site on CT.
Pt had j tube placed to regain weight and improve nutritional status before further surgery. Pt's weight is decreased from prior admission 3 weeks ago.
#Septic shock
#Enteritis
#Diarrhea
# Leukocytosis
- Presented with hypotension. Started on 16 levo down to 8 currently. Wean pressors as tolerated.
- Continue abx. Concern for abscess near j tube on CT. J tube fell out while dressing was being changed. Dr. Brown notified.
- Hold tube feeds in setting of enteritis. Pain improving.
- Occult positive. Loose stools since yesterday.
- Empiric vanc zosyn started. Worsening leukocytosis
- GI and surgery following
- Fluid bolus LR. Continue maintenance bicarb fluids 60/hr
- Repeat BMP and lactate. Improving K
#HFreF
#CAD
- Stable. Hold home HTN medication in setting of hypotension
- Monitor for fluid overload. Currently dry
#Malnutrition
- Weight decreased since j tube placement. Monitor weights with low threshold to supplement diet. Currently NPO.
- Albumin WNL
- Replace J tube
#Iron deficiency anemia
- Follows outpt with [facility]
- Heme/onc following
- Hgb dropped and stbailized at 8.1
- Hgb< 7 plts<50 transfuse
DVT prophylaxis: SCDs.
Diet: NPO
--- NOTE | 2025-05-18 08:00 | PTCARENOTE ---
received patient from library science professor. patient is on bicarb, levophed and protonix gtt. She is very lethargic. denies pain at this time. She is on 2L, although mouth breathing. Patient is sinus rhythm on monitor. levophed at 8mcg for MAP>65.
Patient is NPO, has J tube with some drainage noted in tubing. Has colon catheter draining yellow urine. Is generally cachetic looking, has been incontinent of diarrhea. clean presently. Will review orders, call fajardo within reach.
[2025-05-18] MEDS: NSS (PRESERVATIVE FREE) 10 ML IV ×2 (09:27→19:58)
--- NOTE | 2025-05-18 09:27 | PHA.VAN.IN ---
Assessment
- Assessment
Renal Function: Appears similar to baseline (Will monitor renal function closely due to pt's low BW. Scr 0.7->0.9)
Concomitant Antimicrobials: Piperacillin/tazobactam
- Previous Dosing Experience
Pt received vancomycin 1250mg loading dose in 01/21.
Scr elevated at that time (1, 1.2) and pt dosed by level.
Random level after initial dose was 13.
Vancomycin then discontinued.
AUC Dosing Plan
- Dosing Variables
Dosing Weight (kg): 57 - used IBW since BMI 14
Dosing CrCl (ml/min): 33
Vd coefficient (L/kg): 0.7
- Empiric Dosing
Initial / Loading Dose: Vancomycin 1000mg administered 05/17 at 2200
Maintenance Regimen: Vancomycin 500mg IV Q24h
Estimated AUC (mcg*h/mL): 404
Estimated Peak (mcg*h/mL): 23.5
Estimated Trough (mcg/ml): 11.5
Estimated Half Life (H): 21.8
- Monitoring
No levels ordered at this time: Consider pre-steady state P/T due to pt's body weight.
Pharmacokinetics Vancomycin I
- -
Patient Age: 74
Patient Sex: Female
Vancomycin Day #: 1
Indication: Gi / Intra-Abdominal
Requesting Provider: Dr. Harris
Pertinent Antimicrobial Allergies:
NKA
Height / Weight:
Height 5 ft 5 in
Actual Weight 39.2 kg
IBW in k
Pertinent Past Medical History: BMI ~14, h/o gastrectomy and biliroth II anastomosis, s/p J tube 04/28/25
- Vital Signs / Lab Results
Temp Pulse Resp BP Pulse Ox
97.8 F 70 13 95/57 96
05/18/25 08:00 05/18/25 08:30 05/18/25 08:30 05/18/25 08:30 05/18/25 08:15
Lab Results - Hematology
05/17/25 05/18/25
19:45 03:25
WBC 17.6 H 21.1 H
Lab Results - Chemistry
05/17/25 05/18/25
19:45 03:26
BUN 69 H 65 H
Creatinine 0.7 0.9
Estimated Creat Clear 42 33
Albumin 3.3 L 2.8 L
05/17/25
20:46
Lactic Acid 1.0
Lab Results - Urine
05/18/25
03:25
Urine Nitrite (Reflex) Negative
Leukocyte Esterase Rfl 1+ A
Urine WBC (Reflex) 3-5
Ur Squamous Epith Cells >30
Urine Bacteria (Reflex) Many A
Microbiology Results
05/17/25 20:46 C. difficile GDH Antigen & Toxins - Final
Feces/Stool Negative for toxigenic C.difficile
[2025-05-18] MEDS: LR 250 IV (09:28)
[2025-05-18] MEDS: PROTONIX IV 40 MG IV ×2 (09:28→19:58)
--- NOTE | 2025-05-18 09:41 | PTCARENOTE ---
Patient had large amount of diarrhea. upon full bed bath and linen change, noted that there was pus seeping through drainage sponge by J tube. Removed dressing and wiped around the side, J tube fell out. was not sutured. Notified Dr. Harris and
Dr. de la torre. [place] text to Dr. Brown. Full CHG completed. extrensive colon care completed and placement of rectal trumpet for liquid brown stool. Stopped protonix gtt and will give IV push BID. reviewed case during grand rounds. Will add vanco.
250 LR bolus given. will evaluate ongoing Levophed requirements and repeat labs at 1200.
--- NOTE | 2025-05-18 09:42 | CON.ONC ---
Consultation
-
Date Consultation Requested: 05/18/25
Date Consultation Performed: 05/18/25
Requesting Provider: Va Leach MD
Performing Provider: Dr. Rdud
Impression
Impression
Chronic Thrombocytosis likely secondary to Chronic Iron Deficiency Anemia (Bone marrow Biopsy on 10/2024)
Chronic Iron Deficiency Anemia/Anemia of Chronic Disease
Low-Grade Dysplasia at Anastomosis site noted on Biopsy from 02/28/2025 without definitive evidence of gastric cancer
Peptic Ulcer Disease s/p partial gastrectomy and Billroth II anastomosis in 1999
Severe Protein Calorie Malnutrition due to Chronic Illness and Gastroparesis S/p feeding Jejunostomy on 04/28/2025
Heart Failure with Reduced Ejection Fraction (35-40% as noted on echo from 05/2024)
Plan
Plan
-This is a patient with chronic iron deficiency anemia/anemia of chronic disease in the setting of peptic ulcer disease s/p surgery in 1999 who has continued to lose weight since that time, with severe protein calorie malnutrition. Recent biopsy in
02/28/2025 did show dysplasia in the setting of ulceration and inflammation at the site of her anastomosis but no definitive evidence of gastric cancer.
-She does also have a history of essential thrombocytopenia going back many years with recent bone marrow biopsy from 10/2024. She has a history of significantly elevated platelet values away from her baseline such as 958 in 05/2024, and 1054 in
12/2022.
-Today, hemoglobin is 8.1 and Platelets are 771.
-She could potentially benefit from IV iron infusion therapy given her chronic iron deficiency anemia. Likewise plan to transfuse as needed for hemoglobin <7.
-Continue nutritional support as tolerated once J-tube is replaced, PPI therapy
-Will await additional tissue to clarify the significance of the dysplasia
-Will monitor
Patient History
History of Present Illness
This is a 74 y/o female with pmhx of partial gastrectomy and Billroth II anastomosis for peptic ulcer disease in 1999, Heart Failure with Reduced Ejection Fraction (35-40% as noted on echo from 05/2024) and severe protein calorie malnutrition due to
chronic illness who [facility] ED [facility] with report of abdominal pain.
Since her surgery in 1999, she had been experiencing ongoing gastroparesis, a weight loss of greater than 40lbs, and chronic anemia due to ulcerations. On 02/28/2025, she had an upper endoscopy who showed modularity, edema, and ulceration involving
her gastrojejunal anastomosis. Biopsy of tissue showed low-grade dysplasia in the background of ulceration and inflammation. In order to help try to improve her nutritional status, a feeding jejunostomy tube was placed on 04/28/2025 with ultimate
goal of addressing the root cause of her symptoms and the findings of her biopsy in several months after she had regained some of her weight and strength. Per surgical note on 04/28/2025, the plan is ultimately to convert her Billroth II anastomosis
to a Ashia-en-Y. She was discharged to [facility] on 05/06/2025.
While at [facility], she did develop abdominal pain on 05/16/2025 with dark-colored diarrhea. She was free of fevers, chest pain, or shortness of breath. Her hemoglobin in the ED was 9.3, her WBC was 17.6, her platelets 781. Her Sodium was 133,
and her Potassium was 6.7. X-ray of the chest showed mild interstitial prominence similar to prior exams. No focal airspace disease. CT of her Abdomen/Pelvis was suspicious for an enteritis. There was located fluid collection in the subcutaneous
anterior abdominal wall at middling adjacent to the percutaneous jejunal catheter. This could represent a serum or infected fluid collection. Few small locales of gas along the course of the catheter deep to the anterior abdominal wall.
She was started on empiric antibiotics and given IV fluids. Stool studies/Blood cultures were ordered which are pending. She was admitted to the ICU for further treatment.
Today, she reports feeling tired. She reported feeling comfortable at the moment, but small movements caused her visible pain distress.
Past-Medical/Surgical History
Peptic Ulcer Disease s/p partial gastrectomy and Billroth II anastomosis in 1999
Gastroparesis
Heart Failure with Reduced Ejection Fraction (35-40% as noted on echo from 05/2024)
Severe protein calorie malnutrition due to chronic illness
Chronic Iron Deficiency Anemia/Anemia of Chronic Disease
S/p Feeding Jejunostomy on 04/28/2025
Low-Grade Dysplasia at Anastomosis site
Patient Medication
�Medication �Instructions �Recorded �Confirmed �Last Taken �Type
pantoprazole 40 mg tablet,delayed 40 mg PO BID Gastrointestinal Issue 01/23/23 05/17/25 04/28/25 08:30 History
release
aspirin 81 mg tablet,delayed 81 mg PO DAILY Heart 10/08/23 05/17/25 04/24/25 History
release Disease/Condition
atorvastatin 20 mg tablet 20 mg PO DAILY High Cholesterol 10/08/23 05/17/25 04/28/25 08:30 History
ferrous sulfate 142 mg (45 mg 142 mg PO Q48H Supplement 10/08/23 05/17/25 04/28/25 08:30 History
iron) tablet,extended release
sacubitril 97 mg-valsartan 103 mg 1 tab PO BID Heart Failure 10/25/24 05/17/25 04/28/25 08:30 History
tablet (Entresto)
carvedilol 12.5 mg tablet 6.25 mg PO BID Blood Pressure 11/01/24 05/17/25 04/28/25 08:30 History
furosemide 20 mg tablet (Lasix) 20 mg PO DAILY Heart Failure 11/01/24 05/17/25 04/28/25 08:30 History
spironolactone 25 mg tablet 12.5 mg PO DAILY Blood Pressure 11/01/24 05/17/25 04/28/25 08:30 History
cholecalciferol (vitamin D3) 25 25 mcg PO DAILY Supplement 04/20/25 05/17/25 04/28/25 08:30 History
mcg (1,000 unit) tablet (Vitamin
D3)
cyanocobalamin (vitamin B-12) 1,000 mcg PO DAILY Supplement 04/20/25 05/17/25 04/28/25 08:30 History
1,000 mcg tablet (Vitamin B-12)
Active Medications
Generic Name Dose Route Start Last Admin
Trade Name Freq PRN Reason Stop Dose Admin
Dextrose 12.5 grams 05/17/25 20:31
Dextrose 50% (0.5 Grams/Ml) 50 Ml Syringe IV 06/14/25 20:30
[id number] PRN
hypoglycemia (BG < 70 mg/dL)
Protocol
Piperacillin Sod/Tazobactam Sod 3.375 gram in 50 mls @ 100 mls/hr 05/18/25 04:00 05/18/25 09:36
Zosyn IV 50 mls
Q6H CARMELITA Administration
Norepinephrine Bitartrate 4 mg in 250 mls @ 0 mls/hr 05/18/25 00:20
Levophed IV
PER PROTOCOL CARMELITA
Protocol
Per Protocol
Acetaminophen 575 mg/ Device 57.5 mls @ 230 mls/hr 05/18/25 09:06
IV 05/19/25 09:05
Q6HPRN PRN
pain/fever/headache
Protocol
Sodium Bicarbonate 150 meq/ 1,150 mls @ 60 mls/hr 05/18/25 09:30
Dextrose IV 05/19/25 09:29
.[id number] NR
Vancomycin HCl 100 mls @ 100 mls/hr 05/18/25 10:00
Vancocin Hcl 500 Mg IV
DAILY@0600 CARMELITA
Protocol
Pantoprazole Sodium 40 mg 05/18/25 10:00 05/18/25 09:28
Pantoprazole Sodium 40 Mg/10 Ml Vial IV 06/15/25 09:59 40 mg
BID CARMELITA Administration
Sodium Chloride 0 flush 05/17/25 23:00
Sodium Chloride 0.9% (Flush) Syringe IV 06/14/25 22:59
PER PROTOCOL CARMELITA
Sodium Chloride 10 ml 05/18/25 10:00 05/18/25 09:27
Sodium Chloride 0.9% (Preservative Free) 10 Ml Vial IV 06/15/25 09:59 10 ml
BID CARMELITA Administration
Review of Systems
-
History Source: Patient
Constitutional: Reports Weight Loss (Chronic) and No Appetite
GI: Reports Abdominal Pain
Neuro: Reports Weakness
Physical Exam
-
General: Well Developed, Pain, Appears Chronically Ill and Cachetic
Cardiology: Normal Sinus Rhythm, S1 and S2
Pulmonary: Clear
GI: Other (Hypoactive bowel sounds)
Skin: Warm and Dry
Psych: Calm (but in obvious pain at small movements)
Labs
Lab Results
WBC 21.1 10^3/uL (4.8-10.8) H 05/18/25 03:25
RBC 3.24 10^6/uL (4.20-5.40) L 05/18/25 03:25
Hgb 8.1 g/dL (12.0-16.0) L 05/18/25 03:25
Hct 26.5 % (37.0-47.0) L 05/18/25 03:25
MCV 81.8 fL (81.0-99.0) 05/18/25 03:25
MCH 25.0 pg (27.0-31.0) L 05/18/25 03:25
MCHC 30.6 g/dL (33.0-37.0) L 05/18/25 03:25
RDW 19.8 % (11.5-14.5) H 05/18/25 03:25
Plt Count 771 10^3/uL (130-400) H 05/18/25 03:25
MPV 10.2 fL (7.4-10.4) 05/18/25 03:25
Abs Immat Gran (auto) 0.2 10^3/uL (0-0.05) H 05/18/25 03:25
Absolute Neuts (auto) 17.9 10^3/uL (1.4-6.5) H 05/18/25 03:25
Absolute Lymphs (auto) 1.0 10^3/uL (1.2-3.4) L 05/18/25 03:25
Absolute Monos (auto) 1.6 10^3/uL (0.1-0.6) H 05/18/25 03:25
Absolute Eos (auto) 0.3 10^3/uL (0-0.7) 05/18/25 03:25
Absolute Basos (auto) 0.1 10^3/uL (0-0.2) 05/18/25 03:25
Immature Gran % 0.7 % (0-0.5) H 05/18/25 03:25
Neutrophils % 85.3 % (42.2-75.2) H 05/18/25 03:25
Lymphocytes % 4.8 % (20.5-51.1) L 05/18/25 03:25
Monocytes % 7.6 % (1.7-9.3) 05/18/25 03:25
Eosinophils % 1.4 % (0-6) 05/18/25 03:25
Basophils % 0.2 % (0-2) 05/18/25 03:25
Creatinine 0.9 mg/dL (0.6-1.0) 05/18/25 03:26
Vital Signs
Vital Signs
Temp Pulse Resp BP Pulse Ox
97.8 F 70 13 95/57 96
05/18/25 08:00 05/18/25 08:30 05/18/25 08:30 05/18/25 08:30 05/18/25 08:15
[2025-05-18] MEDS: LEVOPHED 250 IV (09:46)
--- NOTE | 2025-05-18 09:50 | PTCARENOTE ---
when cleaning around patient's abdomen, patient winces in pain. upon palpation, pain is rated at 7:10.
[2025-05-18 09:56] LABS: Iron 22 ug/dl (37-170)
[2025-05-18] MEDS: OFIRMEV 57.5 MG IV ×3 (09:56→22:36)
[2025-05-18 10:05] LABS: Total Iron Binding Capacity 232 ug/dl (265-497)
[2025-05-18] MEDS: VANCOCIN HCL 500 MG 100 IV (10:47)
[2025-05-18 11:38] LABS: Ferritin 295.0 ng/ml (11.1-264.0)
[2025-05-18 12:09] LABS: Folate 4.9 ng/ml (2.76-20); Vitamin B12 > 1000 pg/ml (239-931)
--- NOTE | 2025-05-18 12:21 | VATNOTE ---
PICC order noted. Clarified need with SAUSAGE CANNER, who states patient continues on Vasopressor and will need TPN at some point per MD. VAT to place when able.
--- NOTE | 2025-05-18 12:48 | PTCARENOTE ---
Dr. Brown at bedside, replaced J tube with red catheter. Tube had bile come out of it, now clamped and sutured in position.
[2025-05-18 13:20] LABS: Blood Urea Nitrogen 55 mg/dl (7-17); Calcium 8.8 mg/dl (8.4-10.2); Carbon Dioxide 20 mmol/L (22-30); Chloride 104 mmol/L (98-107); Estimated Creatinine Clearance 38 ml/min; Glucose 131 mg/dl (70-99); Potassium 4.6 mmol/L (3.5-5.1); Sodium 131 mmol/L (135-145); eGFR > 60.00
--- NOTE | 2025-05-18 14:20 | PTCARENOTE ---
IV team attempting to place picc line
--- NOTE | 2025-05-18 14:31 | CM ---
Attempted initial assessment. Patent having Picc placed. Will defer at this time.
--- NOTE | 2025-05-18 14:33 | VATNOTE ---
Attempted to place PICC in left arm as patient had midline in right arm. Accessed both brachial veins, as well as basilic vein; unable to thread wire. On subsequent attempt, brachial artery accessed. Direct pressure held to stop bleeding, dressing
placed; distal color and pulses intact. After speaking with CONSTRUCTION REP and MD, this RN was asked to exchange right arm midline for PICC. Attempted to exchange midline as directed, but again unable to advance wire. Midline removed, Geodetic Surveyor Technologist made
aware; MD states will place TLC at bedside.
[2025-05-18] MEDS: XYLOCAINE 1% 20 ML INFIL (14:49)
[2025-05-18] MEDS: PITRESSIN 100 IV (14:49)
--- NOTE | 2025-05-18 15:12 | OR.RPT ---
Operative Report
Operative Report
Right IJ Central Line placement
Indication: Shock, need central access for multiple pressors
Consent obtained from: Verbal from Patient and her at bedside. Patient too ill to sign
Time-out was performed and patient was placed in Trendelenburg position. Ultrasound was used to assess patency of Right IJ vein. Under sterile conditions area was cleaned with chlorhexidine and then a full body drape was placed. 2 mL of local
anesthesia with lidocaine was injected. Under real-time ultrasound guidance, long axis view, the needle was inserted and vein was punctured, once blood was aspirated, syringe was removed and guidewire was advanced which did not meet any resistance.
Subsequently needle was withdrawn and guidewire was left in place. Ultrasound was used again to confirm presence of guidewire inside the vein lumen. A small yuni was placed at the skin and a dilator was advanced to about 50% of its length.
Dilator was removed and central venous catheter was advanced over guidewire and subsequently guidewire was removed. All 3 ports were capped and they were easy to flush and were withdrawing blood without any resistance. Central line was sutured to
the skin and dressing was applied.
Ultrasound of the lungs was performed and good lung sliding was obtained. Patient stayed hemodynamically stable through the procedure.
Complications: None
Blood loss: 1-2 ml
Time spent: 35 min
Date of Service: 05/18/2025
--- NOTE | 2025-05-18 15:50 | PTCARENOTE ---
right triple lumen IJ placed. CVP tranducd, 8. All tubing changed per policy after Xray confirmed placement.
--- NOTE | 2025-05-18 16:01 | W.PN.INTV ---
Today's Communication / Plan
Recommendations
- Discontinue bicarbonate containing fluids, switch to Ringer lactate at 50 mL/h
- Wean pressors as tolerated
- Start DVT prophylaxis with subcu heparin
Assessment
-
74yof H HFreF, CAD, PUD s/p partial gastrectomy and Billroth II anastomosis 1999 with recent EGD with dysplasia/metaplasia found on biopsy s/p J tube placement 05/02/25 presenting with new abdominal pain and diarrhea with findings of fluid
collection near j tube site on CT. patient noted to be hypotensive and in septic shock. Blood pressure continued to be low despite aggressive IV fluid resuscitation. She was subsequently started on pressors and was admitted to ICU and architectural administrative assistant
consultation was requested for further input.
05/19 overview: Current MAP 72, Levophed infusing at 6. Current infusions Ringer lactate infusing at 50 mL/h. Saturating mid 90s on room air.
#1. Septic shock, Metabolic acidosis
- Concern for enteritis, feeding tube tract infection
- S/p fluid resuscitation, continue pressor as needed to keep MAP above 65
- Continue Zosyn, stop vancomycin as MRSA screen is negative
- Abdominal wall cultures showing gram-negative bacilli preliminary
- Discontinue bicarbonate containing fluids, start Ringer lactate infusion at 50 mL/h
- C. difficile screening negative
#2. Concern for melena
- At risk of anastomotic ulcer, continue Protonix twice daily, GI service on case
- Antiplatelet therapy on hold
Other medical diagnoses:
- History of heart failure with reduced ejection fraction. (LVEF 35-40%) Currently oral mucosa looks dry, good urine output, continue hydration and monitor for signs or symptoms of volume overload
- Malnutrition, patient appears cachectic with bitemporal wasting. J-tube fell out. S/p replacement with a drain per surgery service. Resume feeding
- Anemia
- History of coronary artery disease
- Gastric metaplasia, concern for gastric cancer, workup in progress
DVT prophylaxis, start subcu heparin. IV Protonix for GI prophylaxis.
Critical Care time 45 mins -- The patient is admitted for acute critical illness for the treatment of vital organ failure and/or prevention of further life-threatening conditions. Total care includes time spent in review of history, physical exam,
medications, hemodynamic/ventilator parameters, laboratory data, imaging and discussion with house staff, pharmacy, respiratory therapy, motor vehicle salesperson, and nursing.
Data:
PFT 12/2022: Moderate obstruction. There was significant bronchodilator response in the FVC.
Subjective Dataa
Subjective Data
Date of Service:
Date of Service: May 18, 2025
Subjective:
Patient more awake, alert, comfortably sitting in bed in no acute distress.
Review of Systems
Genitourinary: Other (All 14 systems reviewed and negative except as stated above in the history of present illness.)
Objective Data
Data Reviewed
Vital Signs / I&O / Oxygen:
Vital Signs
Temp Pulse Resp BP Pulse Ox
99.1 F 90 22 86/49 97
05/18/25 11:27 05/18/25 14:15 05/18/25 14:15 05/18/25 14:10 05/18/25 14:15
Intake and Output
05/17/25 05/18/25 05/19/25
06:59 06:59 06:59
Intake Total 810.0 / 920.0 1597.5 / 1597.5
Output Total 260 / 290 380 / 380
Balance 550.0 / 630.0 1217.5 / 1217.5
SaO2 97
Nasal Cannula flow liters per 2
minute
Physical Exam
General: Comfortable
HEENT: Normocephalic and Other (L conjunctiva)
Cardiovascular: S1-S2
Respiratory: Clear and Non-Labored Respirations
GI: Soft and Non Distended
Neurology: Awake and Alert
Skin: Warm
Labs/Micro/Reports
Lab Data
05/18/25 03:25
05/18/25 12:23
Laboratory Results
05/17/25 05/18/25
23:54 03:26
PT 16.0 H 14.7 H
INR 1.23 1.10
APTT 30.1
Microbiology
05/17/25 20:46 Feces/Stool Cryptosporidium/Giardia - Final
Negative for Cryptosporidium and/or Giardia Lamblia
antigens.
05/17/25 20:46 Feces/Stool C. difficile GDH Antigen & Toxins - Final
Negative for toxigenic C.difficile
05/17/25 23:54 Abdomen Gram Stain - Preliminary
05/17/25 20:46 Feces/Stool - Final
Negative for Norovirus GI and GII.
[2025-05-18 16:49] LABS: Venous Blood Gas B.E. -4.8 mmol/L (-4 to +4); Venous Blood Gas O2 Sat % 100.0 %
[2025-05-18] MEDS: DILAUDID 0.25 MG IV (21:37)
[2025-05-19] VITALS (55 sets, daily range): BP systolic 91–132; BP diastolic 44–99; BMI 14.9
--- NOTE | 2025-05-19 | PTCARENOTE ---
Assumed care of patient at this time. Received pt in bed drowsy but alert. Previously received Dilaudid for pain, states her pain is better now. NSR w/ BBB on monitor. BP 105/49 (63) on Levophed 6 mcg/min, see documentation. R IJ TLC patent, D5W w/
bicarb @ 75ml/hr. On RA sating 93%, dropping to 88 while asleep, 2 L placed, sat now 97%, LS diminished. Dias patent. Rectal tube in place. LLQ w/ red catheter at J tube site, dressing c/d/i. Strict NPO. Care provided. Full assessment as
documented.
--- NOTE | 2025-05-19 00:23 | PTCARENOTE ---
Assumed care of patient at this time. Received pt in bed drowsy but alert. Previously received Dilaudid for pain, states her pain is better now. NSR w/ BBB on monitor. BP 105/49 (63) on Levophed and Vasopressin, see documentation. R IJ TLC patent,
D5W w/ bicarb @ 75ml/hr. On RA sating 93%, dropping to 88 while asleep, 2 L placed, sat now 97%, LS diminished. Dias patent. Rectal tube in place. LLQ w/ red catheter at J tube site, dressing c/d/i. Strict NPO. Care provided. Full assessment as
documented.
[2025-05-19] MEDS: SODIUM BICARBONATE 1150 MEQ IV (01:30)
[2025-05-19] MEDS: ZOSYN 50 IV ×4 (03:42→22:31)
[2025-05-19 04:01] LABS: Hematocrit 23.4 % (37.0-47.0); Hemoglobin 7.3 g/dL (12.0-16.0); Mean Corp Hgb Conc. 31.2 g/dL (33.0-37.0); Mean Corpuscular Volume 79.3 fL (81.0-99.0); Nucleated Red Blood Cells % 0 %; Platelet Count 706 10^3/uL (130-400); Red Cell Dist. Width 19.0 % (11.5-14.5)
[2025-05-19 04:43] LABS: ALT (SGPT) 60 U/L (0-35); AST (SGOT) 23 U/L (14-36); Albumin 2.6 g/dl (3.5-5.0); Alkaline Phosphatase 114 U/L (38-126); Blood Urea Nitrogen 40 mg/dl (7-17); Calcium 8.4 mg/dl (8.4-10.2); Carbon Dioxide 26 mmol/L (22-30); Chloride 101 mmol/L (98-107); Estimated Creatinine Clearance 43 ml/min; Glucose 113 mg/dl (70-99); Magnesium 1.7 mg/dl (1.6-2.3); Potassium 3.8 mmol/L (3.5-5.1); Sodium 133 mmol/L (135-145); Total Protein 5.6 g/dl (6.3-8.2); eGFR > 60.00
[2025-05-19] MEDS: OFIRMEV 57.5 MG IV (04:59)
[2025-05-19] MEDS: VANCOCIN HCL 500 MG 100 IV (05:22)
[2025-05-19] MEDS: LEVOPHED 250 IV (08:21)
[2025-05-19] MEDS: PROTONIX IV 40 MG IV ×2 (08:21→20:40)
[2025-05-19] MEDS: NSS (PRESERVATIVE FREE) 10 ML IV ×2 (08:21→20:40)
--- NOTE | 2025-05-19 08:34 | W.PN.HOSP.TC ---
Today's Communication/Plan
-
cont abx
IV iron infusion
wean Pressors as tolerated
trial clear liquid diet
pain control
Assessment / Plan
Assessment / Plan
Physical Exam
General: Appears Chronically Ill (cachectic), no acute distress, appears comfortable at this time.
HEENT: PERRLA
Respiratory: Clear; No Wheezes
Cardiac: S1/S2 and Regular Rhythm; No JVD
GI: abd soft nontender bowel sounds noted J-tube site noted
Musculoskeletal: No Edema
Skin: Warm and Dry; No Rash
Neuro: AO x 3 conversant coherent
Psych: Calm
Ms. Nica Lopez is a 74 yo woman with hx PUD s/p partial gastretcomy and Billroth II anastomosis (1999), HFrEF (35-40% 05/24), recent diagnosis gastric cancer s/p J tube placement 05/02/25 [facility] of
abdominal pain and diarrhea.
CT
IMPRESSION:
CT findings are most suspicious for an enteritis.
Loculated fluid collection in the subcutaneous anterior abdominal wall at midline adjacent to the percutaneous jejunal catheter. This could represent a seroma or an infected fluid collection. Few small locules of gas along the course of the catheter
deep to the anterior abdominal wall.
Septic Shock
Enteritis seen on CT
Loculated fluid collection near J-tube: seroma versus infected fluid collection, likely infected J-tube site, noted reports pustular appearance around J-site, J-tube since fallen out
Diarrhea
Metabolic Acidosis
-ICU admit
-stool studies, C. Diff neg and Norvirus pending
-Blood cx's ngtd
-cont Levophed vasopressin, wean as tolerated
-lactate 1.0
-Metabolic Acidosis resolved, bicarb gtt completed, cont IVF support as per ICU
-continue IV Zosyn, empiric Vancomycin discontinued MRSA screen neg
-consult surgical oncology appreciated dislodged J-tube replaced 05/18/25 tube study confirms placement, ready for use
-clear liquid diet for now.
-Clinical Psychology Professor consult appreciated
Report of black stool/ possible Melena
Anemia of Chronic disease
Chronic Iron Deficiency Anemia
-Hg stable, BUN elevated
-trend Hgb
-IV Protonix BID
-consult GI appreciated
-Hematology consult appreciated IV Iron supplementation
HFrEF
-TTE 05/24 with EF 35-40%
-hold PRODUCTION ANALYST Lasix in setting of septic shock
-hold PRODUCTION ANALYST Spironolactone and Entresto given hypotension and Hyper K
-hold PRODUCTION ANALYST Coreg
-daily weight
-I/O
Hyperkalemia
-s/p IV insulin/dextrose, bicarb, IVF, Calcium in the ER
-hold PRODUCTION ANALYST Spironolactone and Entresto
-resolved
Recent diagnosis of probably Gastric cancer per biopsy report
-s/p ex-lap without finding of metastatic disease in abdomen and placement J-tube on 04/28/25
-consult Oncology appreciated
DVT PPx SCD
DNR
Total Critical Care Time 50 minutes. I was immediately available to the patient and staff. I personally examined, reviewed labs, diagnostic images/reports, interpretations, treatment plans, discussed patient care with other providers, patient,
and patient's Wes, entered orders as appropriate and documented the medical record.
Anticipated Discharge: > 48 hours
Subjective/Interval History
-
Date of Service: May 19, 2025
No acute distress, resting comfortably in bed. Overall reports feeling well, pain well controlled with current pain regimen. Significantly improved from yesterday.
Objective Data
-
Labs:
Laboratory Results
05/19/25
03:38
WBC 18.9 H
Hgb 7.3 L
Hct 23.4 L
Plt Count 706 H
Sodium 133 L
Potassium 3.8
Chloride 101
Carbon Dioxide 26
BUN 40 H
Creatinine 0.7
Glucose 113 H
Calcium 8.4
Total Bilirubin 0.3
AST 23
ALT 60 H
Alkaline Phosphatase 114
Vital Signs:
Vital Signs
Temp Pulse Resp BP Pulse Ox
99.3 F 61 12 103/50 98
05/19/25 07:23 05/19/25 08:15 05/19/25 08:15 05/19/25 08:00 05/19/25 08:15
I&O
05/18/25 05/19/25 05/20/25
06:59 06:59 06:59
Intake Total 810.0 / 920.0 3230.0 / 3337.5 215.0 / 215.0
Output Total 260 / 290 1420 / 1520 150 / 150
Balance 550.0 / 630.0 1810.0 / 1817.5 65.0 / 65.0
--- NOTE | 2025-05-19 09:00 | PTCARENOTE ---
Assumed care of patient at 0645. Assessment completed and documented in shift assessment on worklist.
Patient is pleasant, cooperative and AAOX4. Drowsy at times. MARIE appropriately, chronic pain due to OA. On 2LNC, shallow respirations with diminished lung sounds. SR on monitor. R Triple IJ patent, infusing Bicarb and Levo gtt's. Removed infiltrated
R FA IV. Has additional R FA IV and L Wrist/Hand IV. No edema, weak pedal pulses. MAP > 65 on Levo at 6. NPO strict. Cachectic, LLQ red rubber catheter in place and sutured. Dressing CDI. Rectal trumpet draining loose brown liquid stool. Temp
sensing colon in place drawing yellow/straw urine. Skin intact. Assisted in turning in the bed.
[2025-05-19] MEDS: LR 1000 IV (10:09)
--- NOTE | 2025-05-19 12:00 | PTCARENOTE ---
Assessment unchanged from prior unless listed below:
Removed all three peripheral IV's as they were sluggish/painful with flushing. While removing one on R Side, small skin tear occurred. Placed dressing and cleaned wound bed.
--- NOTE | 2025-05-19 12:02 | CM ---
Initial assessment completed with patient and who live in a 1 story ranch home with a finished basement, 2 steps to enter. Immediately ROTOR BALANCER patient was at [facility] for STR. At home patient is independent in ADL's and ambulation with
a RW. Also has grab bars in the bathroom. Has a feeding J tube. She can drive but has not lately. No in-home services. Does not have a HC-POA. AD documentation provided. No VA benefits. No psychiatric hospitalizations. PCP is Dr. Ayoub
Willy. Pharmacy is [facility] in [place]. Discharge POC: TBD with medical progression.
--- NOTE | 2025-05-19 12:22 | W.PN.SURGUPD ---
Surgical Update
Surgical Update
Her feeding J-tube was accidentally pulled, which was replaced with a red rubber catheter. I will order a contrast study via tube to confirm that the tip is in the small bowel. When the patient is stable for oral intake, we can resume TF after the
confirmation of the placement.
--- NOTE | 2025-05-19 12:38 | W.PN.ONC ---
Documented by User: Flory Sainz DO, Resident 05/19/25 12:45
Today's Communication / Plan
-
Begin iron infusion therapy
Continue to monitor H&H
Impression
Impression
Chronic Thrombocytosis likely secondary to Chronic Iron Deficiency Anemia (Bone marrow Biopsy on 10/2024)
Chronic Iron Deficiency Anemia/Anemia of Chronic Disease
Low-Grade Dysplasia at Anastomosis site noted on Biopsy from 02/28/2025 without definitive evidence of gastric cancer
Peptic Ulcer Disease s/p partial gastrectomy and Billroth II anastomosis in 1999
Severe Protein Calorie Malnutrition due to Chronic Illness and Gastroparesis S/p feeding Jejunostomy on 04/28/2025
Heart Failure with Reduced Ejection Fraction (35-40% as noted on echo from 05/2024)
Plan
Plan
-This is a patient with chronic iron deficiency anemia/anemia of chronic disease in the setting of peptic ulcer disease s/p surgery in 1999 who has continued to lose weight since that time, with severe protein calorie malnutrition. Recent biopsy in
02/28/2025 did show dysplasia in the setting of ulceration and inflammation at the site of her anastomosis but no definitive evidence of gastric cancer.
-She does also have a history of essential thrombocytopenia going back many years with recent bone marrow biopsy from 10/2024. She has a history of significantly elevated platelet values away from her baseline such as 958 in 05/2024, and 1054 in
12/2022.
-Today, hemoglobin is 7.3 and Platelets are 706.
-Transfuse as needed for hemoglobin <7.
-Continue iron infusion therapy for total of 5 bags with 1st bag planned to be administered today
-Continue nutritional support as tolerated, PPI therapy
-Will await additional tissue to clarify the significance of the dysplasia
-Will monitor
Subjective/Objective
Subjective/Objective
Patient was resting comfortably in bed when I arrived. She states she is free of fevers, chills, chest pain, shortness of breath or dizziness. She does continue to feel weak all over her body. She is not currently in any pain.
Vital Signs:
Vital Signs
Temp Pulse Resp BP Pulse Ox
98.2 F 74 13 120/60 97
05/19/25 11:30 05/19/25 12:00 05/19/25 12:00 05/19/25 12:00 05/19/25 12:00
Lab Results:
Laboratory Data
WBC 18.9 10^3/uL (4.8-10.8) H 05/19/25 03:38
Hgb 7.3 g/dL (12.0-16.0) L 05/19/25 03:38
Plt Count 706 10^3/uL (130-400) H 05/19/25 03:38
PT 14.7 Sec (11.4-14.6) H 05/18/25 03:26
INR 1.10 05/18/25 03:26
APTT 30.1 Sec (23.4-35.0) 05/17/25 23:54
eGFR > 60.00 05/19/25 03:38

Documented by User: Bhavesh Dunn MD 05/19/25 14:08
Plan
Plan
-This is a patient with chronic iron deficiency anemia/anemia of chronic disease in the setting of peptic ulcer disease s/p surgery in 1999 who has continued to lose weight since that time, with severe protein calorie malnutrition. Recent biopsy in
02/28/2025 did show dysplasia in the setting of ulceration and inflammation at the site of her anastomosis but no definitive evidence of gastric cancer.
-She does also have a history of essential thrombocytopenia going back many years with recent bone marrow biopsy from 10/2024. She has a history of significantly elevated platelet values away from her baseline such as 958 in 05/2024, and 1054 in
12/2022.
-Today, hemoglobin is 7.3 and Platelets are 706.
-Transfuse as needed for hemoglobin <7.
-Continue iron infusion therapy for total of 5 bags with 1st bag planned to be administered today
-Continue nutritional support as tolerated, PPI therapy
-Will await additional tissue to clarify the significance of the dysplasia
-Will monitor
Oncology/ Hematology Addendum:
patient seen and evaluated and agree w/ resident note and plan as outlined
--- NOTE | 2025-05-19 16:00 | PTCARENOTE ---
Assessment unchanged from prior. S/p Tube Check this afternoon with good result.
[2025-05-19] MEDS: TYLENOL ORAL SOLUTION 650 MG PO ×2 (16:29→20:39)
[2025-05-19] MEDS: FERRLECIT 110 MG IV (16:29)
--- NOTE | 2025-05-19 20:00 | PTCARENOTE ---
Pt Aox3, NSR on monitor, complains of pain in b/l arms, scheduled Tylenol to be given. Levo 2mcg, and LR infusing at 50mls. Dias with adequate urine output. Rectal trumpet has moderate amount of green bile output. Jtube intact, moderate drainage
from insertion site, dressing changed. Pt is very thin, q2hour turns with pillows. Skin tear on right forearm.
[2025-05-19] MEDS: HEPARIN 2500 UNITS SC (20:39)
[2025-05-20] VITALS (39 sets, daily range): BP systolic 90–135; BP diastolic 41–65; BMI 15.0
[2025-05-20] MEDS: TYLENOL ORAL SOLUTION 650 MG PO ×6 (01:08→20:03)
[2025-05-20 03:54] LABS: Hematocrit 22.3 % (37.0-47.0); Hemoglobin 6.8 g/dL (12.0-16.0); Mean Corp Hgb Conc. 30.5 g/dL (33.0-37.0); Mean Corpuscular Volume 81.7 fL (81.0-99.0); Platelet Count 627 10^3/uL (130-400); Red Cell Dist. Width 19.1 % (11.5-14.5)
[2025-05-20 04:03] LABS: ALT (SGPT) 40 U/L (0-35); AST (SGOT) 16 U/L (14-36); Albumin 2.4 g/dl (3.5-5.0); Alkaline Phosphatase 110 U/L (38-126); Blood Urea Nitrogen 24 mg/dl (7-17); Calcium 9.0 mg/dl (8.4-10.2); Carbon Dioxide 30 mmol/L (22-30); Chloride 104 mmol/L (98-107); Estimated Creatinine Clearance 45 ml/min; Glucose 86 mg/dl (70-99); Magnesium 1.8 mg/dl (1.6-2.3); Potassium 3.7 mmol/L (3.5-5.1); Sodium 137 mmol/L (135-145); Total Protein 5.4 g/dl (6.3-8.2); eGFR > 60.00
[2025-05-20] MEDS: ZOSYN 50 IV ×4 (04:07→22:39)
[2025-05-20] MEDS: LEVOPHED 250 IV (05:02)
[2025-05-20] MEDS: LR 1000 IV (05:04)
--- NOTE | 2025-05-20 07:41 | W.PN.HOSP.TC ---
Addendum entered and electronically signed by Kannan Lemos MD 05/20/25 16:29:
05/20/25 Anemia Hgb 6.8 s/p 1PRBC
follow up post-transfusion response with AM labs
Original Note:
Today's Communication/Plan
-
wean pressors as tolerated
cont empiric abx
pain control
clear liquid diet, supplemental tube feeds
eventual downgrade and PT/OT evaluation if stable off pressor support 24 hours
Assessment / Plan
Assessment / Plan
Physical Exam
General: Appears Chronically Ill (cachectic), no acute distress, appears comfortable at this time.
HEENT: PERRLA
Respiratory: Clear; No Wheezes
Cardiac: S1/S2 and Regular Rhythm; No JVD
GI: abd soft nontender bowel sounds noted J-tube site noted
Musculoskeletal: No Edema
Skin: Warm and Dry; No Rash
Neuro: AO x 3 conversant coherent
Psych: Calm
Ms. Nica Lopez is a 74 yo woman with hx PUD s/p partial gastretcomy and Billroth II anastomosis (1999), HFrEF (35-40% 05/24), recent diagnosis gastric cancer s/p J tube placement 05/02/25 [facility] of
abdominal pain and diarrhea.
CT
IMPRESSION:
CT findings are most suspicious for an enteritis.
Loculated fluid collection in the subcutaneous anterior abdominal wall at midline adjacent to the percutaneous jejunal catheter. This could represent a seroma or an infected fluid collection. Few small locules of gas along the course of the catheter
deep to the anterior abdominal wall.
Septic Shock
Enteritis seen on CT
Loculated fluid collection near J-tube: seroma versus infected fluid collection, likely infected J-tube site, noted reports pustular appearance around J-site, J-tube since fallen out
Diarrhea
Metabolic Acidosis
-ICU admit
-stool studies, C. Diff Norvirus neg
-Blood cx's ngtd, wound cx pos for Klebsiella and 2nd Gram neg bacilli, follow sensitivities
-Levophed vasopressin, wean as tolerated, possible downgrade if able to stay off 24 h
-lactate 1.0
-Metabolic Acidosis resolved, bicarb gtt completed, cont IVF support as per ICU
-continue IV Zosyn, empiric Vancomycin discontinued MRSA screen neg
-consult surgical oncology appreciated dislodged J-tube replaced 05/18/25 tube study confirms placement, ready for use
-clear liquid diet, supplemental tube feeds
-Hand Stripper consult appreciated
-pain control scheduled Tylenol Q4HWA, low dose morphine as needed for moderate severe pain
Report of black stool/ possible Melena
Anemia of Chronic disease
Chronic Iron Deficiency Anemia
-Hg stable, BUN elevated
-trend Hgb
-IV Protonix BID
-consult GI appreciated
-Hematology consult appreciated IV Iron supplementation
HFrEF
-TTE 05/24 with EF 35-40%
-hold LUMBER LOADER Lasix in setting of septic shock
-hold LUMBER LOADER Spironolactone and Entresto given hypotension and Hyper K
-hold LUMBER LOADER Coreg
-daily weight
-I/O
Hyperkalemia
-s/p IV insulin/dextrose, bicarb, IVF, Calcium in the ER
-hold LUMBER LOADER Spironolactone and Entresto
-resolved
Recent diagnosis of probably Gastric cancer per biopsy report
-s/p ex-lap without finding of metastatic disease in abdomen and placement J-tube on 04/28/25
-consult Oncology appreciated
Eventual PT/OT evaluation if stable off
DVT PPx SCD
DNR
Total Critical Care Time 35 minutes. I was immediately available to the patient and staff. I personally examined, reviewed labs, diagnostic images/reports, interpretations, treatment plans, discussed patient care with other providers, patient,
and patient's Wes, entered orders as appropriate and documented the medical record.
Anticipated Discharge: > 48 hours
Subjective/Interval History
-
Date of Service: May 20, 2025
no acute distress resting comfortably in bed. Overall reports improvement in pain/discomfort though not resolved. Wes present during evaluation.
Objective Data
-
Labs:
Laboratory Results
05/20/25
03:27
WBC 17.3 H
Hgb 6.8 L*
Hct 22.3 L
Plt Count 627 H
Sodium 137
Potassium 3.7
Chloride 104
Carbon Dioxide 30
BUN 24 H
Creatinine 0.7
Glucose 86
Calcium 9.0
Total Bilirubin 0.4
AST 16
ALT 40 H
Alkaline Phosphatase 110
Vital Signs:
Vital Signs
Temp Pulse Resp BP Pulse Ox
97.6 F 50 17 114/52 97
05/20/25 05:06 05/20/25 05:30 05/20/25 05:30 05/20/25 05:30 05/20/25 05:30
I&O
05/19/25 05/20/25 05/21/25
06:59 06:59 06:59
Intake Total 3230.0 / 3337.5 1544.0 / 1544.0
Output Total 1420 / 1520 1835 / 1835
Balance 1810.0 / 1817.5 -291.0 / -291.0
--- NOTE | 2025-05-20 07:57 | W.PN.INTV ---
Today's Communication / Plan
Recommendations
- Continue to wean Levophed as tolerated
- PRBC x 1
- Start tube feeding
Assessment
-
74yof PMH HFreF, CAD, PUD s/p partial gastrectomy and Billroth II anastomosis 1999 with recent EGD with dysplasia/metaplasia found on biopsy s/p J tube placement 05/02/25 presenting with new abdominal pain and diarrhea with findings of fluid
collection near j tube site on CT. patient noted to be hypotensive and in septic shock. Blood pressure continued to be low despite aggressive IV fluid resuscitation. She was subsequently started on pressors and was admitted to ICU and competency evaluated nurse aide
consultation was requested for further input.
05/20 overview: Current MAP 74, Levophed infusing at 2. Current infusions Ringer lactate infusing at 50 mL/h. Saturating 97% on 2 l
#1. Septic shock, Metabolic acidosis
- Concern for enteritis, feeding tube tract infection
- S/p fluid resuscitation, continue pressor as needed to keep MAP above 65
- Continue Zosyn, stopped vancomycin as MRSA screen is negative
- Abdominal wall cultures showing gram-negative bacilli preliminary
- Discontinued bicarbonate containing fluids, start Ringer lactate infusion at 50 mL/h
- C. difficile screening negative
#2. Concern for melena
- At risk of anastomotic ulcer, continue Protonix twice daily, GI service on case
- Antiplatelet therapy on hold
- Resume tube feeding today
#3. Anemia.
- Receiving PRBC x1. f/u labs in AM
Other medical diagnoses:
- History of heart failure with reduced ejection fraction. (LVEF 35-40%) Currently oral mucosa looks dry, good urine output, continue hydration and monitor for signs or symptoms of volume overload
- Malnutrition, patient appears cachectic with bitemporal wasting. J-tube fell out. S/p replacement with a drain per surgery service. Resume feeding
- Anemia
- History of coronary artery disease
- Gastric metaplasia, concern for gastric cancer, workup in progress
DVT prophylaxis, started subcu heparin. IV Protonix for GI prophylaxis.
Critical Care time 45 mins -- The patient is admitted for acute critical illness for the treatment of vital organ failure and/or prevention of further life-threatening conditions. Total care includes time spent in review of history, physical exam,
medications, hemodynamic/ventilator parameters, laboratory data, imaging and discussion with house staff, pharmacy, respiratory therapy, canvas marker, and nursing.
Data:
PFT 12/2022: Moderate obstruction. There was significant bronchodilator response in the FVC.
Subjective Dataa
Subjective Data
Date of Service:
Date of Service: May 20, 2025
Subjective:
Patient comfortably lying in bed in no acute distress.
Objective Data
Data Reviewed
Vital Signs / I&O / Oxygen:
Vital Signs
Temp Pulse Resp BP Pulse Ox
97.6 F 50 17 114/52 97
05/20/25 05:06 05/20/25 05:30 05/20/25 05:30 05/20/25 05:30 05/20/25 05:30
Intake and Output
05/19/25 05/20/25 05/21/25
06:59 06:59 06:59
Intake Total 3230.0 / 3337.5 1544.0 / 1544.0
Output Total 1420 / 1520 1835 / 1835
Balance 1810.0 / 1817.5 -291.0 / -291.0
SaO2 97
Nasal Cannula flow liters per 2
minute
Physical Exam
General: Comfortable
HEENT: Normocephalic and Other (Pale conjunctiva)
Cardiovascular: S1-S2
Respiratory: Clear and Non-Labored Respirations
GI: Soft and Non Distended
Neurology: Awake and Alert
Skin: Warm
Labs/Micro/Reports
Lab Data
05/20/25 03:27
05/20/25 03:27
Microbiology
05/17/25 23:54 Abdomen Wound Culture - Preliminary
Gram negative bacilli
05/17/25 23:54 Abdomen Gram Stain - Preliminary
05/17/25 20:46 Blood/Venous Blood Culture - Preliminary
No Growth in 48 hours- Final report to follow
05/17/25 20:46 Blood/Venous Blood Culture - Preliminary
No Growth in 48 hours- Final report to follow
05/17/25 20:46 Feces/Stool Salmonella/Shigella Culture - Preliminary
Culture in Progress
05/17/25 20:46 Feces/Stool Campylobacter Culture - Preliminary
Culture in Progress
05/18/25 03:25 Urine Urine Culture - Final
No Significant Growth
05/18/25 03:25 Nose MRSA Screen - Final
No Methicillin Resistant Staphylococcus aureus isolated.
05/17/25 20:46 Feces/Stool Cryptosporidium/Giardia - Final
Negative for Cryptosporidium and/or Giardia Lamblia
antigens.
05/17/25 20:46 Feces/Stool C. difficile GDH Antigen & Toxins - Final
Negative for toxigenic C.difficile
05/17/25 20:46 Feces/Stool - Final
Negative for Norovirus GI and GII.
[2025-05-20] MEDS: NSS (PRESERVATIVE FREE) 10 ML IV ×2 (07:58→20:03)
[2025-05-20] MEDS: PROTONIX IV 40 MG IV ×2 (07:58→20:03)
[2025-05-20] MEDS: HEPARIN 2500 UNITS SC ×2 (07:58→20:03)
--- NOTE | 2025-05-20 08:53 | PTCARENOTE ---
1 unit PRBC completed. Pt AAOx3, resting when undisturbed. Monitor SBR/SR. Levophed titrated off. Lungs dim, pox 97% 2LNC. +BS, abd soft/nt. J-tube in place, clamped. Dias draining yellow urine. Rectal trumpet draining liquid bilious stool.
--- NOTE | 2025-05-20 12:25 | PTCARENOTE ---
1200-Jevity 1.5 started via J-tube at 25mls/hr. Pt resting comfortably in bed. No changes in assessment.
[2025-05-20] MEDS: FERRLECIT 110 MG IV (13:40)
--- NOTE | 2025-05-20 15:54 | PTCARENOTE ---
No changes in assessment, remains off Levophed gtts.
[2025-05-21] VITALS (23 sets, daily range): BP systolic 115–149; BP diastolic 51–80; PULSE 56–64; O2SAT 97–98; BMI 15.4
[2025-05-21] MEDS: TYLENOL ORAL SOLUTION 650 MG PO ×2 (00:30→08:12)
[2025-05-21] MEDS: LR 1000 IV (02:00)
[2025-05-21] MEDS: TYLENOL ORAL SOLUTION PO (03:52)
[2025-05-21 04:03] LABS: Hematocrit 24.8 % (37.0-47.0); Hemoglobin 7.5 g/dL (12.0-16.0); Mean Corp Hgb Conc. 30.2 g/dL (33.0-37.0); Mean Corpuscular Volume 83.2 fL (81.0-99.0); Platelet Count 527 10^3/uL (130-400); Red Cell Dist. Width 18.7 % (11.5-14.5)
[2025-05-21 04:27] LABS: ALT (SGPT) 29 U/L (0-35); AST (SGOT) 17 U/L (14-36); Albumin 2.3 g/dl (3.5-5.0); Alkaline Phosphatase 98 U/L (38-126); Calcium 8.8 mg/dl (8.4-10.2); Carbon Dioxide 29 mmol/L (22-30); Chloride 106 mmol/L (98-107); Estimated Creatinine Clearance 45 ml/min; Glucose 98 mg/dl (70-99); Magnesium 1.9 mg/dl (1.6-2.3); Potassium 4.0 mmol/L (3.5-5.1); Sodium 138 mmol/L (135-145); Total Protein 5.2 g/dl (6.3-8.2); eGFR > 60.00
[2025-05-21] MEDS: ZOSYN 50 IV (04:27)
[2025-05-21 04:38] LABS: Blood Urea Nitrogen 20 mg/dl (7-17)
--- NOTE | 2025-05-21 05:05 | PTCARENOTE ---
Patient AOx3, forgetful at times. NSR/SB on monitor, denies pain with the ATC Tylenol. Urine output 30ml/hr, oclon is in place. Rectal trumpet with brown watery stool. Q2 hour turns with pillows.
--- NOTE | 2025-05-21 07:53 | W.PN.HOSP.TC ---
Addendum entered and electronically signed by Kannan Lemos MD 05/21/25 19:11:
Home statin held as patient is cachectic
checking lipid panel in AM
Original Note:
Today's Communication/Plan
-
stable for downgrade to med/surg
advance diet to pureed, cont supplemental tube feed
ST/PT/OT eval
resumed Lasix coreg with holding parameters
Entresto resumed at reduced dose with holding parameters
cont abx de-escalated to Ceftriaxone
Trial Prednisone for suspected RA
Assessment / Plan
Assessment / Plan
Physical Exam
General: Appears Chronically Ill (cachectic), no acute distress, appears comfortable at this time.
HEENT: PERRLA
Respiratory: Clear; No Wheezes
Cardiac: S1/S2 and Regular Rhythm; No JVD
GI: abd soft nontender bowel sounds noted J-tube site noted
Musculoskeletal: No Edema, ulnar deviation hands
Skin: Warm and Dry; No Rash
Neuro: AO x 3 conversant coherent
Psych: Calm
Ms. Nica Lopez is a 74 yo woman with hx PUD s/p partial gastretcomy and Billroth II anastomosis (1999), HFrEF (35-40% 05/24), recent diagnosis gastric cancer s/p J tube placement 05/02/25 [facility] with report of
abdominal pain and diarrhea.
CT
IMPRESSION:
CT findings are most suspicious for an enteritis.
Loculated fluid collection in the subcutaneous anterior abdominal wall at midline adjacent to the percutaneous jejunal catheter. This could represent a seroma or an infected fluid collection. Few small locules of gas along the course of the catheter
deep to the anterior abdominal wall.
Septic Shock
Enteritis seen on CT
Loculated fluid collection near J-tube: seroma versus infected fluid collection, likely infected J-tube site, noted reports pustular appearance around J-site, J-tube fell out since replaced by Dr Jesse Brown
Diarrhea
Metabolic Acidosis
-ICU admit
-stool studies, C. Diff Norvirus neg
-Blood cx's ngtd, wound cx pos for Klebsiella and Enterobacter, sensitivities appreciated both sensitive to Bactrim
-Levophed vasopressin, wean as tolerated, possible downgrade if able to stay off 24 h
-no significant lactic acidosis
-Metabolic Acidosis resolved, bicarb gtt completed
-empiric Vancomycin discontinued MRSA screen neg, Zosyn de-escalated to ceftriaxone
-consult surgical oncology Dr Jesse Brown appreciated dislodged J-tube replaced with red cath ok to use for tube feeds following 05/18/25 tube study confirming placement
-clear liquid diet advanced to pureed, supplemental tube feeds
-IVF support completed, monitor off
-speech eval
-Inside Sales Account Executive consult appreciated
-ID eval requested for tomorrow Thursday
-pain control prn Tylenol
arthritis
pt self diagnosed with RA, months ago, d/t ulnar deviation hands, never formally evaluated by Knifeman
prednisone taper 40 mg daily started, if significant improvement mobility/pain noted, consider goal taper to 10 mg daily and cont at this dose till follow up with Rheum outpt
Report of black stool/ possible Melena
Anemia of Chronic disease
Chronic Iron Deficiency Anemia
-IV Protonix BID
-consult GI appreciated
-Hematology consult appreciated IV Iron supplementation
-once PRBC given for Hgb 6.8 given 05/20, appropriate post-transfusion response noted Hgb 7.5
-cont to monitor H&H
HFrEF
-TTE 05/24 with EF 35-40%, follow up repeat ECHO
-resumed Lasix w/ holding parameters
-Entresto resumed at reduced dose with holding parameters, titrate up to home dose as tolerated
-Home spironolactone remains on hold
-Home Coreg resumed with holding parameters
-daily weight I/O
Acute Hypoxia
wean O2 supplementation as tolerated
Incentive Spirometer
Hyperkalemia
-s/p IV insulin/dextrose, bicarb, IVF, Calcium in the ER
-held SOAP MAKER Spironolactone and Entresto (Entresto since resumed as above)
Resolved
Recent diagnosis of probably Gastric cancer per biopsy report
-s/p ex-lap without finding of metastatic disease in abdomen and placement J-tube on 04/28/25
-consult Oncology appreciated
PT/OT eval pending
DVT PPx SCD
DNR
Discussed with patient, patient's Wes, and Inside Sales Account Executive
I spent a total of 55 minutes with the patient or on the floor. More than 50% of this time involved counseling and coordination of care.
Anticipated Discharge: 24 - 48 hours
Subjective/Interval History
-
Date of Service: May 21, 2025
No acute distress resting comfortably in bed. Overall reports significant improvement in overall symptoms. arthritic pain persists
Objective Data
-
Labs:
Laboratory Results
05/21/25
03:51
WBC 9.1
Hgb 7.5 L
Hct 24.8 L
Plt Count 527 H
Sodium 138
Potassium 4.0
Chloride 106
Carbon Dioxide 29
BUN 20 H
Creatinine 0.7
Glucose 98
Calcium 8.8
Total Bilirubin 0.4
AST 17
ALT 29
Alkaline Phosphatase 98
Vital Signs:
Vital Signs
Temp Pulse Resp BP Pulse Ox
97.9 F 45 13 121/54 98
05/21/25 03:28 05/21/25 05:00 05/21/25 05:00 05/21/25 05:00 05/21/25 05:00
I&O
05/20/25 05/21/25 05/22/25
06:59 06:59 06:59
Intake Total 1544.0 / 1601.5 1507.5 / 1507.5
Output Total 183 / 1884 1150 / 1150
Balance -291.0 / -283.5 357.5 / 357.5
[2025-05-21] MEDS: PROTONIX IV 40 MG IV ×2 (08:12→20:50)
[2025-05-21] MEDS: NSS (PRESERVATIVE FREE) 10 ML IV ×2 (08:12→20:50)
[2025-05-21] MEDS: HEPARIN 2500 UNITS SC ×2 (08:12→20:50)
--- NOTE | 2025-05-21 09:19 | W.PN.INTV ---
Today's Communication / Plan
Recommendations
- Discontinue central line after securing peripheral IV access
- Patient can be transferred out of ICU
- Federal Aid Coordinator service will sign off, please call as needed
Assessment
-
74yof PMH HFreF, CAD, PUD s/p partial gastrectomy and Billroth II anastomosis 1999 with recent EGD with dysplasia/metaplasia found on biopsy s/p J tube placement 05/02/25 presenting with new abdominal pain and diarrhea with findings of fluid
collection near j tube site on CT. patient noted to be hypotensive and in septic shock. Blood pressure continued to be low despite aggressive IV fluid resuscitation. She was subsequently started on pressors and was admitted to ICU and rod puller
consultation was requested for further input.
05/21 overview: Current MAP of 79, weaned off pressors. Saturating 98% on room air. Current infusion Ringer lactate at 50 mL/h.
#1. Septic shock, Metabolic acidosis
- Concern for enteritis, feeding tube tract infection. Klebsiella on local wound cultures.
- S/p fluid resuscitation, off pressors now.
- Cultures reviewed, discontinue Zosyn and start Rocephin
-Continue Ringer lactate infusion, advance tube feeding as tolerated
- C. difficile screening negative
#2. Concern for melena
- At risk of anastomotic ulcer, continue Protonix twice daily, GI service on case
- Antiplatelet therapy on hold
- Resumed tube feeding
#3. Anemia.
- S/p PRBC x 1 on 05/20
Clinically quite improved. Transferred to [facility] floor.
Other medical diagnoses:
- History of heart failure with reduced ejection fraction. (LVEF 35-40%) Currently oral mucosa looks dry, good urine output, continue hydration and monitor for signs or symptoms of volume overload
- Malnutrition, patient appears cachectic with bitemporal wasting. J-tube fell out. S/p replacement with a drain per surgery service. Resume feeding
- Anemia
- History of coronary artery disease
- Gastric metaplasia, concern for gastric cancer, workup in progress
DVT prophylaxis, started subcu heparin. IV Protonix for GI prophylaxis.
Critical Care time 40 mins -- The patient is admitted for acute critical illness for the treatment of vital organ failure and/or prevention of further life-threatening conditions. Total care includes time spent in review of history, physical exam,
medications, hemodynamic/ventilator parameters, laboratory data, imaging and discussion with house staff, pharmacy, respiratory therapy, ecommerce project manager, and nursing.
Data:
PFT 12/2022: Moderate obstruction. There was significant bronchodilator response in the FVC.
Subjective Dataa
Subjective Data
Date of Service:
Date of Service: May 21, 2025
Subjective:
Patient comfortably lying in bed in no acute distress. Overall much improved.
Review of Systems
Genitourinary: Other (All 14 systems reviewed and negative except as stated above in the history of present illness.)
Objective Data
Data Reviewed
Vital Signs / I&O / Oxygen:
Vital Signs
Temp Pulse Resp BP Pulse Ox
97.4 F 44 22 135/68 98
05/21/25 08:15 05/21/25 08:15 05/21/25 08:15 05/21/25 08:00 05/21/25 08:15
Intake and Output
05/20/25 05/21/25 05/22/25
06:59 06:59 06:59
Intake Total 1544.0 / 1601.5 1507.5 / 1557.5 100 / 100
Output Total 1835 / 1885 1150 / 1150
Balance -291.0 / -283.5 357.5 / 407.5 100 / 100
SaO2 98
Nasal Cannula flow liters per 2
minute
Physical Exam
General: Comfortable
HEENT: Normocephalic
Cardiovascular: S1-S2
Respiratory: Clear and Non-Labored Respirations
GI: Soft and Non Distended
Neurology: Awake and Alert
Skin: Warm
Labs/Micro/Reports
Lab Data
05/21/25 03:51
05/21/25 03:51
Microbiology
05/17/25 23:54 Abdomen Wound Culture - Preliminary
Klebsiella pneumoniae
Gram negative bacilli
05/17/25 23:54 Abdomen Gram Stain - Preliminary
05/17/25 20:46 Blood/Venous Blood Culture - Preliminary
No Growth in 72 hours- Final report to follow
05/17/25 20:46 Blood/Venous Blood Culture - Preliminary
No Growth in 72 hours- Final report to follow
05/17/25 20:46 Feces/Stool Salmonella/Shigella Culture - Final
No Salmonella, Shigella, Aeromonas or Plesiomonas species
isolated.
05/17/25 20:46 Feces/Stool Campylobacter Culture - Final
No Campylobacter species isolated.
05/18/25 03:25 Urine Urine Culture - Final
No Significant Growth
05/18/25 03:25 Nose MRSA Screen - Final
No Methicillin Resistant Staphylococcus aureus isolated.
05/17/25 20:46 Feces/Stool Cryptosporidium/Giardia - Final
Negative for Cryptosporidium and/or Giardia Lamblia
antigens.
05/17/25 20:46 Feces/Stool C. difficile GDH Antigen & Toxins - Final
Negative for toxigenic C.difficile
05/17/25 20:46 Feces/Stool - Final
Negative for Norovirus GI and GII.
[2025-05-21] MEDS: ROCEPHIN 1000 MG IV (09:38)
[2025-05-21] MEDS: STERILE WATER FOR INJECTION 10 ML IV (09:38)
[2025-05-21] MEDS: FLUSH (NSS) 1 FLUSH IV (09:39)
[2025-05-21] MEDS: DELTASONE 40 MG PO (11:11)
[2025-05-21] MEDS: FERRLECIT 110 MG IV (14:15)
--- NOTE | 2025-05-21 15:45 | PTCARENOTE ---
Trialed pt on room air, pox dropped to 89%, 2L NC reapplied. Larissa linares'd. Peripheral IV placed in right hand. Awaiting transfer to [facility]. at bedside.
--- NOTE | 2025-05-21 17:41 | PTCARENOTE ---
Pt OOB in chair with assist of 2 for approx 2 hrs. Pt assisted back to bed and transferred to [facility].
[2025-05-21] MEDS: ENTRESTO 24 MG/26 MG 1 TAB PO (20:49)
[2025-05-21] MEDS: COREG 6.25 MG PO (20:49)
--- NOTE | 2025-05-21 22:50 | W.PN.UPDATE ---
Update Note
Progress Note Update
Patient curious as to 'what the purple band was for'..nursing explained the significance and the definition of DNR. She asked me to come up and review also which I did and removed the purple band and changed her code status to 'full'. A family
meeting may eventually need to be held to discuss her status. She doesn't recall the conversation upon her admission.
[2025-05-22 06:00] VITALS: BMI 16.0
[2025-05-22 07:20] VITALS: BP 139/68
--- NOTE | 2025-05-22 08:15 | CON.ID ---
Consultation
-
Date/Time Consultation Requested: 05/21/25 15:12
Date/Time Consultation Performed: 05/22/25 8:15
Requesting Provider: Dr Lemos
Performing Provider: Dr Campa
Reason for Consultation: septic shock possible enteritis vs wound infxn, since improved.
Chief Complaint / Past History
Chief Complaint
diarrhea and abdominal pain
History of Present Illness
Ms Lopez is a 74 year old female with history of PUD s/p partial gastrectomy and Billroth II anastomosis (1999), recent diagnosis gastric cancer at site of nodular ulcer s/p J tube placement 05/02/25 who presented here 05/17 for abdominal pain and
diarrhea. She had J tube placement for feeding prior to gastric resection. Tube was placed 04/28. The symptoms began the day before admission with purulent drainage from the tube site. multiple episodes of black stools. No fevers, chest pain or
shortness of breath.
Since arrival here she has been afebrile, bp initially unstable and she required pressor support, wbc count initially 17.6 then normalized on 05/21 (HD5), hgb 7.5, plt initially 781 then down to 527, there was a L shift when last assessed HD3, na
initially 133 now 138, cr 0.7, mild transaminitis now resolved, UA no significant pyuria, 05/17 CT a/p with IV contrast: enteritis, loculated fluid in SQ anterior abdominal wall - midline to jejunal catheter, collection is 6.5 x 1.6 x 3.1 cm, 05/19
Tube check - no leak with contrast injection, 05/17 wound culture K pneumoniae, E cloacae. She was initially on zosyn for 4 days and yesterday was switched to ceftriaxone. 05/19 her tube was accidentally pulled and a red rubber catheter was used to
replace it. She then had the tube reinserted same day. ID is consulted for assistance with management.
Past History
Additional Past Medical History:
as per hpi
Additional Past Surgical History:
as per hpi
Allergy History:
No Known Allergies Allergy (Verified 05/17/25 23:15)
Medications Reviewed: Yes
Social History
Tobacco: Former Smoker
Alcohol: None
Family History
Family History: Not Pertinent
Review of Systems
Review of Systems
All systems: All other systems were reviewed and were negative
Vital Signs
Temp Pulse Resp BP Pulse Ox
97.5 F 52 16 133/61 97
05/21/25 23:35 05/21/25 23:35 05/21/25 23:35 05/21/25 23:35 05/21/25 23:35
Physical Exam
Physical Exam
Constitutional: No Acute Distress
Cardiovascular: Regular Rate and S1/S2; Negative Murmur or Rub
Pulmonary: Clear and Symmetric; Negative Wheezes, Rales or Rhonchi
Gastrointestinal: Soft, Non Tender, Non Distended and Normal Bowel Sounds
Skin: Warm and Dry; Negative Rash or Jaundice
Wound: Other (catheter in place with about 5-10 ccs of purulent drainage on the dressing; able to express some purulence when palpating near the midline to the catheter.)
Lab / Diagnostic Study Results
Abs Immat Gran (auto) 0.2 10^3/uL (0-0.05) H 05/19/25 03:38
Absolute Neuts (auto) 16.6 10^3/uL (1.4-6.5) H 05/19/25 03:38
Absolute Lymphs (auto) 0.5 10^3/uL (1.2-3.4) L 05/19/25 03:38
Absolute Monos (auto) 1.3 10^3/uL (0.1-0.6) H 05/19/25 03:38
Absolute Basos (auto) 0.0 10^3/uL (0-0.2) 05/19/25 03:38
Immature Gran % 1.0 % (0-0.5) H 05/19/25 03:38
Neutrophils % 87.7 % (42.2-75.2) H 05/19/25 03:38
Lymphocytes % 2.9 % (20.5-51.1) L 05/19/25 03:38
Monocytes % 6.9 % (1.7-9.3) 05/19/25 03:38
Eosinophils % 1.3 % (0-6) 05/19/25 03:38
Basophils % 0.2 % (0-2) 05/19/25 03:38
PT 14.7 Sec (11.4-14.6) H 05/18/25 03:26
INR 1.10 05/18/25 03:26
Lactic Acid 1.4 mmol/L (0.7-2.0) 05/18/25 12:23
Ur Squamous Epith Cells >30 /LPF (Few) 05/18/25 03:25
Microbiology Results
Micro:
05/17/25 20:46 Blood Culture - Preliminary
Blood/Venous No Growth in 4 days- Final report to follow
05/17/25 20:46 Blood Culture - Preliminary
Blood/Venous No Growth in 4 days- Final report to follow
05/17/25 23:54 Wound Culture - Final
Abdomen Klebsiella pneumoniae
Enterobacter cloacae
Gram Stain - Final
05/17/25 20:46 Salmonella/Shigella Culture - Final
Feces/Stool No Salmonella, Shigella, Aeromonas or Plesiomonas species
isolated.
Campylobacter Culture - Final
No Campylobacter species isolated.
Shiga Toxin Test - Pending
05/18/25 03:25 Urine Culture - Final
Urine No Significant Growth
05/18/25 03:25 MRSA Screen - Final
Nose No Methicillin Resistant Staphylococcus aureus isolated.
05/17/25 20:46 Cryptosporidium/Giardia - Final
Feces/Stool Negative for Cryptosporidium and/or Giardia Lamblia
antigens.
C. difficile GDH Antigen & Toxins - Final
Negative for toxigenic C.difficile
05/17/25 20:46 - Final
Feces/Stool Negative for Norovirus GI and GII.
Wound/abscess/other Cult Final 05/21/25-918
Few Klebsiella pneumoniae
Few Enterobacter cloacae
Organism 1 Klebsiella pneumoniae
Organism 2 Enterobacter cloacae
K.PNEUMO E.CLOACAE
M.I.C. RX M.I.C. RX
--------- --- --------- ---
Amoxicillin/Potas. Clavulanate <=8/4 S >16/8 R
Ampicillin >16 R >16 R
Ampicillin/Sulbactam 8/4 S >16/8 R
Aztreonam <=4 S <=4 S
Cefazolin <=2 S >16 R
Cefepime <=2 S
Ceftazidime <=1 S
Ceftriaxone <=1 S
Ertapenem <=0.5 S <=0.5 S
Ciprofloxacin <=0.25 S <=0.25 S
Gentamicin <=2 S <=2 S
Meropenem <=1 S <=1 S
Piperacillin/Tazobactam <=8 S <=8 S
Tetracycline <=4 S <=4 S
Tobramycin <=2 S <=2 S
Trimethoprim/Sulfamethoxazole <=2/38 S <=2/38 S
Assessment / Plan
Catheter Infection
Gastroparesis
- I am concerned that the catheter seems to have an adjacent fluid collection - possible abscess - wound cultures with K pneumoniae and E cloacae. There is ongoing drainage from the catheter. I reached out and discussed the situation with Dr Brown
and my recommendation would be catheter removal, drainage of fluid if feasible and replacement at a later date. We discussed the possibility of TPN in the meantime. Dr Brown will reassess Ms Lopez tomorrow.
- continue ceftriaxone at this time, will plan for oral treatment
Care Review
Plan reviewed with: Physician (Dr Brown - catheter infection)
--- NOTE | 2025-05-22 08:24 | W.PN.ONC2 ---
Today's Communication / Plan
-
transfuse Hgb <7
antiplatelet risk/benefit per GI/cardiology
Impression
Impression
a/w septic shock, wound Kleb
Chronic Thrombocytosis likely secondary to Chronic Iron Deficiency Anemia (Bone marrow Biopsy on 10/2024)
Low-Grade Dysplasia at Anastomosis site noted on Biopsy from 02/28/2025 without definitive evidence of gastric cancer
Peptic Ulcer Disease s/p partial gastrectomy and Billroth II anastomosis in 1999
AOCD/inflammation
Severe Protein Calorie Malnutrition due to Chronic Illness and Gastroparesis S/p feeding Jejunostomy on 04/28/2025
Heart Failure with Reduced Ejection Fraction (35-40% as noted on echo from 05/2024)
on prednisone for RA
Plan
Plan
-Transfuse as needed for hemoglobin <7, s/p 1U prbc during hospitalization, last 05/20
-Continue iron infusion
-Continue nutritional support as tolerated, PPI therapy
Subjective/Objective
Subjective
no new complaints
afebrile, no hypoxia or hypotension
Vital Signs:
Vital Signs
Temp Pulse Resp BP Pulse Ox
97.5 F 64 18 139/68 99
05/22/25 07:20 05/22/25 07:20 05/22/25 07:20 05/22/25 07:20 05/22/25 07:20
Lab Results:
Laboratory Data
WBC 9.1 10^3/uL (4.8-10.8) 05/21/25 03:51
Hgb 7.5 g/dL (12.0-16.0) L 05/21/25 03:51
Plt Count 527 10^3/uL (130-400) H 05/21/25 03:51
PT 14.7 Sec (11.4-14.6) H 05/18/25 03:26
INR 1.10 05/18/25 03:26
APTT 30.1 Sec (23.4-35.0) 05/17/25 23:54
eGFR > 60.00 05/21/25 03:51
Physical Exam
HEENT: Moist Mucous Membranes; No Jaundice
Pulmonary: Other (unlabored)
GI: Soft and Other (J tube)
Extremities: Pulses Present
[2025-05-22] MEDS: DELTASONE 40 MG PO (09:09)
[2025-05-22] MEDS: ASPIR LOW (ENTERIC COATED) 81 MG PO (09:09)
[2025-05-22] MEDS: LASIX 20 MG PO (09:09)
[2025-05-22] MEDS: COREG 6.25 MG PO ×2 (09:09→21:50)
[2025-05-22] MEDS: ENTRESTO 24 MG/26 MG 1 TAB PO ×2 (09:09→21:51)
[2025-05-22] MEDS: VITAMIN B-12 1000 MCG PO (09:09)
--- NOTE | 2025-05-22 09:09 | W.PN.HOSP.TC ---
Today's Communication/Plan
-
see bold
Assessment / Plan
Assessment / Plan
HPI: 74 yo woman with hx PUD s/p partial gastretcomy and Billroth II anastomosis (1999), HFrEF (35-40% 05/24), recent diagnosis gastric cancer s/p J tube placement 05/02/25 [facility] with report of abdominal pain and
diarrhea.
CT
IMPRESSION:
CT findings are most suspicious for an enteritis.
Loculated fluid collection in the subcutaneous anterior abdominal wall at midline adjacent to the percutaneous jejunal catheter. This could represent a seroma or an infected fluid collection. Few small locules of gas along the course of the catheter
deep to the anterior abdominal wall.
Septic Shock
Enteritis seen on CT
Loculated fluid collection near J-tube: seroma versus infected fluid collection, likely infected J-tube site, noted reports pustular appearance around J-site, J-tube fell out, replaced by Dr Jesse Brown
Diarrhea
Metabolic Acidosis
-Appreciate oracle hrms consultant input, out of the ICU on 05/21, status post Levophed and vasopressin
-Consult surgical oncology Dr Jesse Brown appreciated dislodged J-tube replaced with red cath ok to use for tube feeds following 05/18/25 tube study confirming placement
-Stool studies, C. Diff Norvirus neg
-Blood cx's ngtd, wound cx pos for Klebsiella and Enterobacter, sensitivities appreciated both sensitive to Bactrim
-Metabolic Acidosis resolved, bicarb gtt completed
-MRSA screen neg, status post vancomycin/Zosyn, continue Rocephin
-Appreciate ID input, who is reached out to Dr. Jesse Brown regarding possible removal of J tube catheter
-Dr Jesse Brown to reassess tomorrow
-Cleared by SPL for reg diet/thin liquids, and supplemental noctural tube feeds
Arthritis
-Patient self diagnosed with RA, months ago, d/t ulnar deviation hands, never formally evaluated by [employer]
-Prednisone 40 mg daily, D2/7, recommend outpatient follow-up with rheumatology
Report of black stool/ possible Melena
Anemia of Chronic disease
Chronic Iron Deficiency Anemia
-Appreciate GI input, anemia/heme positive stools likely due to her anastomotic ulcer, which may be an underlying gastric cancer, path showed at least LGD from superficial biopsies
-GI rec IV Protonix BID, can change to po upon dc
-Appreciate hematology input, recommend IV iron
-Status post 1 unit packed red blood cells 05/20 for hemoglobin of 6.8, hemoglobin improved to 7.5
-Continue to trend hemoglobin, transfuse as needed
HFrEF
-TTE 05/24 with EF 35-40%, follow up repeat ECHO
-Resumed Lasix w/ holding parameters
-Entresto resumed at reduced dose with holding parameters, titrate up to home dose as tolerated
-Home spironolactone remains on hold
-Home Coreg resumed with holding parameters
-daily weight I/O
Acute Hypoxia
-Currently requiring 1 L of oxygen, continue incentive spirometer, wean oxygen as tolerated
Hyperkalemia
-S/p IV insulin/dextrose, bicarb, IVF, Calcium in the ER
-Held [employer] Spironolactone and Entresto (Entresto since resumed as above)
-Resolved
Recent diagnosis of possible gastric cancer per biopsy report
-S/p ex-lap without finding of metastatic disease in abdomen and placement J-tube on 04/28/25
-Appreciate oncology input, biopsy shows low-grade dysplasia at anastomosis site, no definitive evidence of gastric cancer
Severe Protein Calorie Malnutrition due to Chronic Illness and Gastroparesis S/p feeding Jejunostomy on 04/28/2025
-Continue oral intake with nocturnal tube feeds
PT/OT- rec SNF, she is from SNF
DVT PPx - SCDs due to melena & anemia
DNR
Total time spent to see the patient on the floor, examine the patient, review data and lab results, discuss treatment plan with patient, nursing staff around 50 minutes.
Physical Exam
General: Appears Chronically Ill (cachectic), no acute distress, appears comfortable at this time.
HEENT: PERRLA
Respiratory: Clear; No Wheezes
Cardiac: S1/S2 and Regular Rhythm; No JVD
GI: abd soft nontender bowel sounds noted J-tube site noted
Musculoskeletal: No Edema, ulnar deviation hands
Skin: Warm and Dry; No Rash
Neuro: AO x 3 conversant coherent
Psych: Calm
Anticipated Discharge: > 48 hours
Subjective/Interval History
-
Date of Service: May 22, 2025
Patient complains of hand pain, improved. Denies nausea, vomiting, or abdominal pain. No chest pain, no shortness of breath. No fever.
Objective Data
-
Labs:
Laboratory Results
05/22/25
09:08
WBC Pending
Hgb Pending
Hct Pending
Plt Count Pending
Sodium Pending
Potassium Pending
Chloride Pending
Carbon Dioxide Pending
BUN Pending
Creatinine Pending
Glucose Pending
Calcium Pending
Total Bilirubin Pending
AST Pending
ALT Pending
Alkaline Phosphatase Pending
Vital Signs:
Vital Signs
Temp Pulse Resp BP Pulse Ox
97.5 F 64 18 139/68 99
05/22/25 07:20 05/22/25 07:20 05/22/25 07:20 05/22/25 07:20 05/22/25 07:20
I&O
05/21/25 05/22/25 05/23/25
06:59 06:59 06:59
Intake Total 1822.5 / 1932.5 1520 / 1520
Output Total 1150 / 1200 140 / 140
Balance 672.5 / 732.5 1380 / 1380
[2025-05-22] MEDS: VITAMIN D3 (cholecalciferol) 25 MCG PO (09:10)
[2025-05-22] MEDS: HEPARIN 2500 UNITS SC ×2 (09:10→21:51)
[2025-05-22] MEDS: STERILE WATER FOR INJECTION 10 ML IV (09:10)
[2025-05-22] MEDS: NSS (PRESERVATIVE FREE) 10 ML IV ×2 (09:10→21:54)
[2025-05-22] MEDS: PROTONIX IV 40 MG IV ×2 (09:10→21:54)
[2025-05-22] MEDS: ROCEPHIN 1000 MG IV (09:11)
[2025-05-22] MEDS: FLUSH (NSS) 1 FLUSH IV (09:11)
[2025-05-22 09:34] LABS: Hematocrit 30.2 % (37.0-47.0); Hemoglobin 8.9 g/dL (12.0-16.0); Mean Corp Hgb Conc. 29.5 g/dL (33.0-37.0); Mean Corpuscular Volume 84.1 fL (81.0-99.0); Platelet Count 678 10^3/uL (130-400); Red Cell Dist. Width 18.8 % (11.5-14.5)
[2025-05-22 10:13] LABS: ALT (SGPT) 26 U/L (0-35); AST (SGOT) 14 U/L (14-36); Albumin 2.7 g/dl (3.5-5.0); Alkaline Phosphatase 104 U/L (38-126); Blood Urea Nitrogen 20 mg/dl (7-17); Calcium 9.0 mg/dl (8.4-10.2); Carbon Dioxide 28 mmol/L (22-30); Chloride 107 mmol/L (98-107); Estimated Creatinine Clearance 56 ml/min; Glucose 83 mg/dl (70-99); HDL Cholesterol 27 mg/dl; LDL Cholesterol, Calculated 61 mg/dl; Magnesium 2.0 mg/dl (1.6-2.3); Potassium 4.4 mmol/L (3.5-5.1); Sodium 139 mmol/L (135-145); Total Protein 5.8 g/dl (6.3-8.2); Very Low Density Lipoprotein 28 mg/dl (0-30); eGFR > 60.00
--- NOTE | 2025-05-22 10:41 | CM ---
Chart reviewed. Care ongoing at this time
Patient w/ J tube placement
Therapy rec SNF at d/c. Discussed w/ patient and [facility] nurse bedside. Patient agreeable to SNF but does not want to return to [facility]. Patient requested referrals to [facility] and [place]. [facility] nurse asked CM to include in referral a
recommendation for an air mattress.
Referrals to facilities completed in [place] [facility]
Patient will need a prior auth for SNF
Plan: SNF
--- NOTE | 2025-05-22 10:47 | PTOTSP ---
Dysphagia Evaluation:
Given PMH, pt presents w/ chronic risk factors for dysphagia/aspiration and complications (gastric cancer, j-tube, malnutrition). Pt demonstrated no signs concerning for oral/pharyngeal dysphagia and no overt s/s of aspiration during evaluation.
Recommendations:
1. Regulars, Thins
2. Medications as best tolerated
3. Partial supervision/assistance w/ meal set up
4. Strategies: Small sips/bites, slowed rate of eating, sitting upright w/ meals, alternating liquid washes, reflux precautions
5. ST will sign off. Reconsult if changes in diet tolerance or pt presentation.
--- NOTE | 2025-05-22 11:22 | WOUNDNOTE ---
J-tube site with drainage.
--- NOTE | 2025-05-22 11:33 | WOUNDNOTE ---
WOC RN note: Patient admitted with diarrhea and abdominal pain
See H&P for complete history.
PMH: Newly diagnosed gastric cancer, HF, Hyperkalemia, s/p partial gastrectomy with J-tube placement
Wound Location and type/assessment: WOC RN consulted for GEORGE site. The skin surrounding J-tube site appears intact and yellow, purulent drainage noted when removing old dressing. Patient denies pain and J-tube is infusing feeds as ordered. No open
skin or odor noted. Dr. Null and CALVIN Ordonez at bedside are were updated. Rectal tube intact. Sacrum and heels intact. Patient demonstrates ability to turn self in bed.
Appetite: Protein calorie malnutrition per chart review.
Pressure redistribution devices in place:
Plan: Will recommend cleaning around tube with Vashe and applying clean dressings daily and PRN. Patient is being followed by ID and IR. Orders confirmed with Dr. Null and CALVIN Ordonez updated. Will sign off.
--- NOTE | 2025-05-22 11:43 | WOUNDNOTE ---
WOC RN note: Patient admitted with diarrhea and abdominal pain
See H&P for complete history.
PMH: Newly diagnosed gastric cancer, HF, Hyperkalemia, s/p partial gastrectomy with J-tube placement
Wound Location and type/assessment: WOC RN consulted for GEORGE site. The skin surrounding J-tube site appears intact and yellow, purulent drainage noted when removing old dressing. Patient denies pain and J-tube is infusing feeds as ordered. No open
skin or odor noted. Dr. Null and CALVIN Ordonez at bedside are were updated. Rectal tube intact. Sacrum and heels intact. Patient demonstrates ability to turn self in bed.
Appetite: Protein calorie malnutrition per chart review.
Pressure redistribution devices in place: Versa Care Accumax, Static air overlay to be applied.
Plan: Will recommend cleaning around tube with Vashe and applying clean dressings daily and PRN. Patient is being followed by ID and IR. Orders confirmed with Dr. Null and CALVIN Ordonez updated. Updated CM for need of air bed upon transfer to SNF. Will
sign off.
[2025-05-22] MEDS: FERRLECIT 110 MG IV (14:10)
[2025-05-22 15:25] VITALS: BP 127/73
[2025-05-22 21:39] LABS: Glucose - Point of Care 163 mg/dl (70-99)
[2025-05-22 22:57] VITALS: BP 124/68
[2025-05-23 06:00] VITALS: BMI 17.4
[2025-05-23 07:15] VITALS: BP 144/60
--- NOTE | 2025-05-23 08:58 | W.PN.HOSP.TC ---
Today's Communication/Plan
-
see bold
Assessment / Plan
Assessment / Plan
HPI: 74 yo woman with hx PUD s/p partial gastretcomy and Billroth II anastomosis (1999), HFrEF (35-40% 05/24), recent diagnosis gastric cancer s/p J tube placement 05/02/25 [facility] with report of abdominal pain and
diarrhea.
CT
IMPRESSION:
CT findings are most suspicious for an enteritis.
Loculated fluid collection in the subcutaneous anterior abdominal wall at midline adjacent to the percutaneous jejunal catheter. This could represent a seroma or an infected fluid collection. Few small locules of gas along the course of the catheter
deep to the anterior abdominal wall.
Septic Shock
Enteritis seen on CT
Loculated fluid collection near J-tube: seroma versus infected fluid collection, likely infected J-tube site, noted reports pustular appearance around J-site, J-tube fell out, replaced by Dr Jesse Brown
Diarrhea
Metabolic Acidosis
-Appreciate pound keeper input, out of the ICU on 05/21, status post Levophed and vasopressin
-Consult surgical oncology Dr Jesse Brown appreciated dislodged J-tube replaced with red cath ok to use for tube feeds following 05/18/25 tube study confirming placement
-Stool studies, C. Diff Norvirus neg
-Blood cx's ngtd, wound cx pos for Klebsiella and Enterobacter, sensitivities appreciated both sensitive to Bactrim
-Metabolic Acidosis resolved, bicarb gtt completed
-MRSA screen neg, status post vancomycin/Zosyn, continue Rocephin
-Appreciate ID input, who recommends removal of J tube catheter
-Appreciate surgical oncology input, difficult situation, as Dr. Brown feels that patient may not be able to tolerate another ex lap for another feeding tube placement
-For repeat CT scan today to reassess the subcu collection
-Cleared by SPL for reg diet/thin liquids, and supplemental noctural tube feeds
Arthritis
-Patient self diagnosed with RA, months ago, d/t ulnar deviation hands, never formally evaluated by [employer]
-Prednisone 40 mg daily, D3/7, recommend outpatient follow-up with rheumatology
Report of black stool/ possible Melena
Anemia of Chronic disease
Chronic Iron Deficiency Anemia
-Appreciate GI input, anemia/heme positive stools likely due to her anastomotic ulcer, which may be an underlying gastric cancer, path showed at least LGD from superficial biopsies
-GI rec IV Protonix BID, can change to po upon dc
-Appreciate hematology input, recommend IV iron
-Status post 1 unit packed red blood cells 05/20 for hemoglobin of 6.8, hemoglobin improved to 7.5
-Continue to trend hemoglobin, transfuse as needed
HFrEF
-TTE 05/24 with EF 35-40%, follow up repeat ECHO
-Resumed Lasix w/ holding parameters
-Entresto resumed at reduced dose with holding parameters, titrate up to home dose as tolerated
-Home spironolactone remains on hold
-Home Coreg resumed with holding parameters
-daily weight I/O
Acute Hypoxia
-Currently requiring 1 L of oxygen, continue incentive spirometer, wean oxygen as tolerated
Hyperkalemia
-S/p IV insulin/dextrose, bicarb, IVF, Calcium in the ER
-Held [employer] Spironolactone and Entresto (Entresto since resumed as above)
-Resolved
Recent diagnosis of possible gastric cancer per biopsy report
-S/p ex-lap without finding of metastatic disease in abdomen and placement J-tube on 04/28/25
-Appreciate oncology input, biopsy shows low-grade dysplasia at anastomosis site, no definitive evidence of gastric cancer
Severe Protein Calorie Malnutrition due to Chronic Illness and Gastroparesis S/p feeding Jejunostomy on 04/28/2025
-Continue oral intake with nocturnal tube feeds
PT/OT- rec SNF, she is from SNF
DVT PPx - SCDs due to melena & anemia
DNR
Total time spent to see the patient on the floor, examine the patient, review data and lab results, discuss treatment plan with patient, nursing staff around 40 minutes.
Physical Exam
General: Appears Chronically Ill (cachectic), no acute distress, appears comfortable at this time.
HEENT: PERRLA
Respiratory: Clear; No Wheezes
Cardiac: S1/S2 and Regular Rhythm; No JVD
GI: abd soft nontender bowel sounds noted J-tube site noted
Musculoskeletal: No Edema, ulnar deviation hands
Skin: Warm and Dry; No Rash
Neuro: AO x 3 conversant coherent
Psych: Calm
Anticipated Discharge: > 48 hours
Subjective/Interval History
-
Date of Service: May 23, 2025
Patient reports her hand pain has improved. Denies abdominal pain, denies nausea and vomiting. No chest pain, no shortness of breath. No fever.
Objective Data
-
Labs:
Laboratory Results
05/23/25
08:15
WBC Pending
Hgb Pending
Hct Pending
Plt Count Pending
Vital Signs:
Vital Signs
Temp Pulse Resp BP Pulse Ox
98 F 69 18 124/68 93
05/22/25 22:57 05/22/25 22:57 05/22/25 22:57 05/22/25 22:57 05/22/25 22:57
I&O
05/22/25 05/23/25 05/24/25
06:59 06:59 06:59
Intake Total 1520 / 1520 720 / 720
Output Total 140 / 140
Balance 1380 / 1380 720 / 720
[2025-05-23] MEDS: COREG 6.25 MG PO (09:12)
[2025-05-23] MEDS: VITAMIN B-12 1000 MCG PO (09:12)
[2025-05-23] MEDS: ASPIR LOW (ENTERIC COATED) 81 MG PO (09:13)
[2025-05-23] MEDS: VITAMIN D3 (cholecalciferol) 25 MCG PO (09:13)
[2025-05-23] MEDS: ENTRESTO 24 MG/26 MG 1 TAB PO ×2 (09:13→20:24)
[2025-05-23] MEDS: STERILE WATER FOR INJECTION 10 ML IV (09:14)
[2025-05-23] MEDS: LASIX 20 MG PO (09:14)
[2025-05-23] MEDS: ROCEPHIN 1000 MG IV (09:14)
[2025-05-23] MEDS: DELTASONE 40 MG PO (09:14)
[2025-05-23] MEDS: FLUSH (NSS) 10 FLUSH IV (09:15)
[2025-05-23] MEDS: HEPARIN 2500 UNITS SC ×2 (09:17→20:19)
[2025-05-23] MEDS: NSS (PRESERVATIVE FREE) 10 ML IV ×2 (09:20→20:18)
[2025-05-23] MEDS: PROTONIX IV 40 MG IV ×2 (09:20→20:18)
[2025-05-23 10:24] LABS: Hematocrit 27.9 % (37.0-47.0); Hemoglobin 8.5 g/dL (12.0-16.0); Mean Corp Hgb Conc. 30.5 g/dL (33.0-37.0); Mean Corpuscular Volume 85.1 fL (81.0-99.0); Platelet Count 526 10^3/uL (130-400); Red Cell Dist. Width 19.4 % (11.5-14.5)
--- NOTE | 2025-05-23 10:32 | W.PN.ID1 ---
Date of Service
Date of Service: May 23, 2025
Today's Communication
- the team has significant concerns about Ms Lopez's ability to tolerate another ex-lap for replacement of feeding tube, if the current tube cannot be removed then we could try suppressive antibiotics and reassess as an outpatient in 3-4 weeks
acknowledging that this is a complex situation with advanced frailty, cachexia which may change the risk benefit ratio for removal.
- continue ceftriaxone at this time, tentatively will plan for oral treatment on discharge
Assessment / Plan
Catheter Infection
Gastroparesis
- for repeat CT scan today to reassess the collection
- the team has significant concerns about Ms Lopez's ability to tolerate another ex-lap for replacement of feeding tube, if the current tube cannot be removed then we could try suppressive antibiotics and reassess as an outpatient in 3-4 weeks
acknowledging that this is a complex situation with advanced frailty, cachexia which may change the risk benefit ratio for removal.
- continue ceftriaxone at this time, tentatively will plan for oral treatment on discharge
Subjective / Review of Systems
afebrile
bp stable
new leukocytosis today with wbc 12.6
still with mild amount of purulent drainage from the catheter
further discussions with Dr Brown
Vital Signs / Physical Exam
Vital Signs
Vital Signs
Temp Pulse Resp BP Pulse Ox
97.5 F 61 16 144/60 95
05/23/25 07:15 05/23/25 09:14 05/23/25 07:15 05/23/25 09:14 05/23/25 07:15
Physical Exam
Constitutional: No Acute Distress
Cardiovascular: Regular Rate and S1/S2; Negative Murmur or Rub
Pulmonary: Clear and Symmetric; Negative Wheezes or Rales
Gastrointestinal: Soft, Non Tender, Non Distended and Normal Bowel Sounds
Skin: Warm and Dry; Negative Rash or Jaundice
Wound: Other (mild amount of purulent drainage from the catheter)
Objective Data
Lab Data
Lab Results
05/23/25 08:15
05/22/25 09:08
PT 14.7 Sec (11.4-14.6) H 05/18/25 03:26
INR 1.10 05/18/25 03:26
APTT 30.1 Sec (23.4-35.0) 05/17/25 23:54
Estimated Creat Clear 56 ml/min 05/22/25 09:08
Lactic Acid 1.4 mmol/L (0.7-2.0) 05/18/25 12:23
Total Bilirubin < 0.1 mg/dl (0.2-1.3) L 05/22/25 09:08
AST 14 U/L (14-36) 05/22/25 09:08
ALT 26 U/L (0-35) 05/22/25 09:08
Alkaline Phosphatase 104 U/L (38-126) 05/22/25 09:08
Most recent labs reviewed.
Micro Results:
05/17/25 20:46 Blood Culture - Final
Blood/Venous No Growth - Final Report
05/17/25 20:46 Blood Culture - Final
Blood/Venous No Growth - Final Report
05/17/25 20:46 Salmonella/Shigella Culture - Final
Feces/Stool No Salmonella, Shigella, Aeromonas or Plesiomonas species
isolated.
Campylobacter Culture - Final
No Campylobacter species isolated.
Shiga Toxin Test - Final
No E. coli Shiga Toxin 1 or 2 detected.
05/17/25 23:54 Wound Culture - Final
Abdomen Klebsiella pneumoniae
Enterobacter cloacae
Gram Stain - Final
05/18/25 03:25 Urine Culture - Final
Urine No Significant Growth
05/18/25 03:25 MRSA Screen - Final
Nose No Methicillin Resistant Staphylococcus aureus isolated.
05/17/25 20:46 Cryptosporidium/Giardia - Final
Feces/Stool Negative for Cryptosporidium and/or Giardia Lamblia
antigens.
C. difficile GDH Antigen & Toxins - Final
Negative for toxigenic C.difficile
05/17/25 20:46 - Final
Feces/Stool Negative for Norovirus GI and GII.
--- NOTE | 2025-05-23 10:33 | W.PN.SURGUPD ---
Surgical Update
Surgical Update
The patient looks much better. She denied any abdominal pain, N/V.
AF VSS
Abdomen - soft, NT, ND. Feeding J-tube intact
A/P: Improving from enteritis. She continues to drain purulent fluid around the feeding J-tube.
Ideally, we would remove the feeding tube for better drainage, but her nutritional status remains a big problem, especially without the feeding tube. If I removed the feeding tube and does not replace it within 25-48 hours, she will need another
laparotomy to have another feeding tube placed.
We will obtain another CT scan to reassess the SQ collection. If it is smaller, then I would continue antibiotics without taking out the feeding tube. If the collection is worse, then we can consider placing a drain in the collection or taking out
the feeding tube.
Above discussed with the patient, Dr. Ed Tracey, and Dr. Danita Campa.
[2025-05-23 10:35] VITALS: BP 154/70; PULSE 45; O2SAT 95
--- NOTE | 2025-05-23 10:39 | W.PN.ONC2 ---
Today's Communication / Plan
-
Complete 5-day course of IV iron today
Outpatient follow-up for further treatment of ET with hydroxyurea/anagrelide
Impression
Impression
Patient is a 74-year-old female with PMH of PUD s/p partial gastrectomy with Billroth II anastomosis (1999), essential thrombocythemia, AOCD, SANDI, gastroparesis, recent low-grade dysplasia found on biopsy of GJ anastomosis, and recent J-tube
placement for nutritional supplementation who presented to [facility] with abdominal pain and was to have fluid collection around J-tube with septic shock, which necessitated treatment in the ICU with vasopressors and antibiotics. Heme-onc was consulted
for concurrent anemia and thrombocytosis.
Anemia
- Hgb 8.5, low but stable s/p 1U PRBC 05/20
- Suspected multifactorial (SANDI 2/2 malnutrition and marginal ulcer, AOCD)
Essential thrombocythemia
- Plt 526, stable
- Possible reactive component to thrombocytosis superimposed on ET in setting of acute infection
Leukocytosis
- WBC 12.6, mild in the setting of steroid treatment for RA
Plan
Plan
Essential thrombocythemia/Anemia/Leukocytosis
Complete 5-day course of IV iron today
Outpatient follow-up w/ heme-onc (Dr. Barrera) for hydroxyurea/anagrelide for ET
Nutritional support as tolerated
Monitor CBC, clinical status
Transfuse Hgb <7.0
Subjective/Objective
Chief Complaint
Abdominal pain, diarrhea
Subjective
Patient is seen at the bedside on HD #7. Patient states she is feeling slightly better than yesterday. Tolerating regular diet. No current complaints. Denies f/f/c, dyspnea, lightheadedness, dizziness, tachycardia, or palpitations.
Vital Signs:
Vital Signs
Temp Pulse Resp BP Pulse Ox
97.5 F 61 16 144/60 95
05/23/25 07:15 05/23/25 09:14 05/23/25 07:15 05/23/25 09:14 05/23/25 07:15
Lab Results:
Laboratory Data
WBC 12.6 10^3/uL (4.8-10.8) H 05/23/25 08:15
Hgb 8.5 g/dL (12.0-16.0) L 05/23/25 08:15
Plt Count 526 10^3/uL (130-400) H D 05/23/25 08:15
PT 14.7 Sec (11.4-14.6) H 05/18/25 03:26
INR 1.10 05/18/25 03:26
APTT 30.1 Sec (23.4-35.0) 05/17/25 23:54
eGFR > 60.00 05/22/25 09:08
Physical Exam
Cachectic
Cardiology: Other (Non-tachycardic)
Extremities: Pulses Present, No C/C/E and Other (Extremities warm; mild ecchymoses around prior IV sites); No Phlebitic Signs
Neuro: Non Focal
Review of Systems
Review of Systems
Constitutional: Denies Fever, Fatigue or Other (Denies chills)
Respiratory: Denies Dyspnea
Hem/Lymphatic: Reports Easy Bruising
[2025-05-23 10:43] VITALS: BP 154/70; PULSE 45; O2SAT 95
[2025-05-23 15:43] VITALS: BP 172/73
[2025-05-23] MEDS: COREG PO (20:38)
[2025-05-23 21:22] LABS: Glucose - Point of Care 355 mg/dl (70-99)
[2025-05-23 22:40] LABS: Glucose - Point of Care 153 mg/dl (70-99)
[2025-05-23 23:05] VITALS: BP 142/68
[2025-05-24 06:00] VITALS: BMI 17.2
[2025-05-24 07:00] VITALS: BP 160/74
[2025-05-24] MEDS: ENTRESTO 24 MG/26 MG 1 TAB PO ×2 (09:04→21:18)
[2025-05-24] MEDS: VITAMIN D3 (cholecalciferol) 25 MCG PO (09:05)
[2025-05-24] MEDS: COREG PO (09:05)
[2025-05-24] MEDS: LASIX 20 MG PO (09:05)
[2025-05-24] MEDS: DELTASONE 40 MG PO (09:05)
[2025-05-24] MEDS: VITAMIN B-12 1000 MCG PO (09:05)
[2025-05-24] MEDS: ASPIR LOW (ENTERIC COATED) 81 MG PO (09:06)
[2025-05-24] MEDS: HEPARIN 2500 UNITS SC ×2 (09:06→21:14)
[2025-05-24] MEDS: PROTONIX IV 40 MG IV ×2 (09:07→21:13)
[2025-05-24] MEDS: NSS (PRESERVATIVE FREE) 10 ML IV ×2 (09:08→21:14)
[2025-05-24] MEDS: STERILE WATER FOR INJECTION 10 ML IV (09:14)
[2025-05-24] MEDS: ROCEPHIN 1000 MG IV (09:14)
[2025-05-24] MEDS: FLUSH (NSS) IV (09:19)
--- NOTE | 2025-05-24 10:11 | W.PN.HOSP.TC ---
Today's Communication/Plan
-
Discharge to short-term rehab when bed available
Assessment / Plan
Assessment / Plan
HPI: 74 yo woman with hx PUD s/p partial gastretcomy and Billroth II anastomosis (1999), HFrEF (35-40% 05/24), recent diagnosis gastric cancer s/p J tube placement 05/02/25 presents to the ER from [place] [facility] with report of abdominal pain and
diarrhea.
CT
IMPRESSION:
CT findings are most suspicious for an enteritis.
Loculated fluid collection in the subcutaneous anterior abdominal wall at midline adjacent to the percutaneous jejunal catheter. This could represent a seroma or an infected fluid collection. Few small locules of gas along the course of the catheter
deep to the anterior abdominal wall.
Septic Shock
Enteritis seen on CT
Loculated fluid collection near J-tube: seroma versus infected fluid collection, likely infected J-tube site, noted reports pustular appearance around J-site, J-tube fell out, replaced by Dr Jesse Brown
Diarrhea
Metabolic Acidosis
-Appreciate nanotechnician input, out of the ICU on 05/21, status post Levophed and vasopressin
-Consult surgical oncology Dr Jesse Brown appreciated dislodged J-tube replaced with red cath ok to use for tube feeds following 05/18/25 tube study confirming placement
-Stool studies, C. Diff Norvirus neg
-Blood cx's ngtd, wound cx pos for Klebsiella and Enterobacter, sensitivities appreciated both sensitive to Bactrim
-Metabolic Acidosis resolved, bicarb gtt completed
-MRSA screen neg, status post vancomycin/Zosyn, ID changed Rocephin to cefdinir solution through tube, plan for 4 weeks of treatment
-Appreciate ID input, who recommends removal of J tube catheter
-Appreciate surgical oncology input, difficult situation, as Dr. Brown feels that patient may not be able to tolerate another ex lap for another feeding tube placement
-05/[address] scan shows improved collection, increased gas
-Cleared by SPL for reg diet/thin liquids, and supplemental noctural tube feeds
-Discharge to short-term rehab when bed available, follow-up in ID clinic in 4 weeks
Arthritis
-Patient self diagnosed with RA, months ago, d/t ulnar deviation hands, never formally evaluated by Digital Marketing Program Manager
-Prednisone 40 mg daily, D4/7, recommend outpatient follow-up with rheumatology
Report of black stool/ possible Melena
Anemia of Chronic disease
Chronic Iron Deficiency Anemia
-Appreciate GI input, anemia/heme positive stools likely due to her anastomotic ulcer, which may be an underlying gastric cancer, path showed at least LGD from superficial biopsies
-Change Protonix IV to 40 mg p.o. twice daily
-Appreciate hematology input, recommend IV iron
-Status post 1 unit packed red blood cells 05/20 for hemoglobin of 6.8, hemoglobin improved to 7.5
-Continue to trend hemoglobin, transfuse as needed
HFrEF
-TTE 05/24 with EF 35-40%, follow up repeat ECHO
-Resumed Lasix w/ holding parameters
-Entresto resumed at reduced dose with holding parameters, titrate up to home dose as tolerated
-Home spironolactone remains on hold
-Home Coreg resumed with holding parameters
-daily weight I/O
Acute Hypoxia
-Currently requiring 1 L of oxygen, continue incentive spirometer, wean oxygen as tolerated
Hyperkalemia
-S/p IV insulin/dextrose, bicarb, IVF, Calcium in the ER
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
-Resolved
Recent diagnosis of possible gastric cancer per biopsy report
-S/p ex-lap without finding of metastatic disease in abdomen and placement J-tube on 04/28/25
-Appreciate oncology input, biopsy shows low-grade dysplasia at anastomosis site, no definitive evidence of gastric cancer
Severe Protein Calorie Malnutrition due to Chronic Illness and Gastroparesis S/p feeding Jejunostomy on 04/28/2025
-Continue oral intake with nocturnal tube feeds
PT/OT- rec SNF, she is from SNF
DVT PPx - SCDs due to melena & anemia
DNR
Total time spent to see the patient on the floor, examine the patient, review data and lab results, discuss treatment plan with patient, nursing staff around 43 minutes.
Physical Exam
General: Appears Chronically Ill (cachectic), no acute distress, appears comfortable at this time.
HEENT: PERRLA
Respiratory: Clear; No Wheezes
Cardiac: S1/S2 and Regular Rhythm; No JVD
GI: abd soft nontender bowel sounds noted J-tube site noted
Musculoskeletal:ulnar deviation hands
[place] dependent edema of elbow is noted
Skin: Warm and Dry; No Rash
Neuro: AO x 3 conversant coherent
Psych: Calm
Anticipated Discharge: Within 24 hours
Subjective/Interval History
-
Date of Service: May 24, 2025
Patient denies nausea, denies vomiting. No abdominal pain. She reports improvement in her hand pain. No fever.
Objective Data
-
Vital Signs:
Vital Signs
Temp Pulse Resp BP Pulse Ox
97.4 F 58 18 160/74 88
05/24/25 07:00 05/24/25 09:05 05/24/25 07:00 05/24/25 09:04 05/24/25 09:04
I&O
05/23/25 05/24/25 05/25/25
06:59 06:59 06:59
Intake Total 720 / 720 1500 / 1500
Balance 720 / 720 1500 / 1500
--- NOTE | 2025-05-24 10:40 | W.PN.ID1 ---
Date of Service
Date of Service: May 24, 2025
Today's Communication
- the team has significant concerns about Ms Lopez's ability to tolerate another ex-lap for replacement of feeding tube, if the current tube cannot be removed then we can try suppressive antibiotics and reassess as an outpatient in 3-4 weeks
acknowledging that this is a complex situation with advanced frailty, cachexia.
- switch to cefdinir solution via the tube, plan 4 weeks of treatment
- follow up in ID clinic in about 4 weeks
Assessment / Plan
Catheter Infection
Gastroparesis
- repeat CT scan with improved collection, increased gas
- the team has significant concerns about Ms Lopez's ability to tolerate another ex-lap for replacement of feeding tube, if the current tube cannot be removed then we can try suppressive antibiotics and reassess as an outpatient in 3-4 weeks
acknowledging that this is a complex situation with advanced frailty, cachexia.
- switch to cefdinir solution via the tube, plan 4 weeks of treatment
- follow up in ID clinic in about 4 weeks
Subjective / Review of Systems
afebrile
bp stable
tolerating current therapies
some improvement of abscess on repeat CT scan
Vital Signs / Physical Exam
Vital Signs
Vital Signs
Temp Pulse Resp BP Pulse Ox
97.4 F 58 18 160/74 88
05/24/25 07:00 05/24/25 09:05 05/24/25 07:00 05/24/25 09:04 05/24/25 09:04
Physical Exam
Constitutional: No Acute Distress
Cardiovascular: Regular Rate and S1/S2; Negative Murmur or Rub
Pulmonary: Clear and Symmetric; Negative Wheezes or Rales
Gastrointestinal: Soft, Non Tender, Non Distended and Normal Bowel Sounds
Skin: Warm and Dry; Negative Rash or Jaundice
Lines: Other (abdominal drain scant drainage)
Objective Data
Lab Data
Lab Results
05/23/25 08:15
05/22/25 09:08
PT 14.7 Sec (11.4-14.6) H 05/18/25 03:26
INR 1.10 05/18/25 03:26
APTT 30.1 Sec (23.4-35.0) 05/17/25 23:54
Estimated Creat Clear 56 ml/min 05/22/25 09:08
Lactic Acid 1.4 mmol/L (0.7-2.0) 05/18/25 12:23
Total Bilirubin < 0.1 mg/dl (0.2-1.3) L 05/22/25 09:08
AST 14 U/L (14-36) 05/22/25 09:08
ALT 26 U/L (0-35) 05/22/25 09:08
Alkaline Phosphatase 104 U/L (38-126) 05/22/25 09:08
Most recent labs reviewed.
Micro Results:
05/17/25 20:46 Blood Culture - Final
Blood/Venous No Growth - Final Report
05/17/25 20:46 Blood Culture - Final
Blood/Venous No Growth - Final Report
05/17/25 20:46 Salmonella/Shigella Culture - Final
Feces/Stool No Salmonella, Shigella, Aeromonas or Plesiomonas species
isolated.
Campylobacter Culture - Final
No Campylobacter species isolated.
Shiga Toxin Test - Final
No E. coli Shiga Toxin 1 or 2 detected.
05/17/25 23:54 Wound Culture - Final
Abdomen Klebsiella pneumoniae
Enterobacter cloacae
Gram Stain - Final
05/18/25 03:25 Urine Culture - Final
Urine No Significant Growth
05/18/25 03:25 MRSA Screen - Final
Nose No Methicillin Resistant Staphylococcus aureus isolated.
05/17/25 20:46 Cryptosporidium/Giardia - Final
Feces/Stool Negative for Cryptosporidium and/or Giardia Lamblia
antigens.
C. difficile GDH Antigen & Toxins - Final
Negative for toxigenic C.difficile
05/17/25 20:46 - Final
Feces/Stool Negative for Norovirus GI and GII.
--- NOTE | 2025-05-24 10:42 | CM ---
Chart reviewed. Care ongoing. Patient has a feeding J tube
Eventual discharge to SNF. [facility] accepted, [facility] declined due to no bed availability, may have a bed once d/c date is determined.
Patient will need insurance auth prior to d/c
Cont IV abx, tentatively will plan for oral treatment on d/c
Plan: SNF when medically stable
[2025-05-24] MEDS: OMNICEF 300 MG TUBE ×2 (13:45→21:13)
[2025-05-24 15:04] VITALS: BP 124/59
[2025-05-24] MEDS: COREG 6.25 MG PO (21:18)
[2025-05-24] MEDS: TYLENOL ORAL SOLUTION 650 MG PO (21:27)
[2025-05-24 23:51] VITALS: BP 137/81
[2025-05-25 04:59] VITALS: BMI 16.8
[2025-05-25 07:40] VITALS: BP 130/80
[2025-05-25 08:40] VITALS: BP 130/80
--- NOTE | 2025-05-25 08:45 | W.PN.ID1 ---
Addendum entered and electronically signed by Danita Campa MD 05/25/25 14:40:
attribute increase in WBC count to steroids
Original Note:
Date of Service
Date of Service: May 25, 2025
Today's Communication
- switch to cefdinir solution via the tube, plan 4 weeks of treatment
- follow up in ID clinic in about 4 weeks
Assessment / Plan
Catheter Infection
Gastroparesis
Gastric ulcer with low grade dysplasia
- repeat CT scan with improved collection, increased gas
- the team has significant concerns about Ms Lopez's ability to tolerate another ex-lap for replacement of feeding tube, since the current tube cannot be removed we can try suppressive antibiotics and reassess as an outpatient in 3-4 weeks
acknowledging that this is a complex situation with advanced frailty, cachexia. The tube is critical to her rehabilitation.
- switch to cefdinir solution via the tube, plan 4 weeks of treatment
- follow up in ID clinic in about 4 weeks
Subjective / Review of Systems
afebrile
wound drainage is dropping off though still present, may 5-10 ccs on the dressing
Vital Signs / Physical Exam
Vital Signs
Vital Signs
Temp Pulse Resp BP Pulse Ox
98.2 F 93 18 137/81 96
05/24/25 23:51 05/24/25 23:51 05/24/25 23:51 05/24/25 23:51 05/24/25 23:51
Physical Exam
Constitutional: No Acute Distress
Cardiovascular: Regular Rate and S1/S2; Negative Murmur or Rub
Pulmonary: Clear and Symmetric; Negative Wheezes or Rales
Gastrointestinal: Soft, Non Tender, Non Distended and Normal Bowel Sounds
Skin: Warm and Dry; Negative Rash or Jaundice
Lines: Other (red rubber cath in place, small purulent drainage)
Objective Data
Lab Data
Lab Results
05/23/25 08:15
05/22/25 09:08
PT 14.7 Sec (11.4-14.6) H 05/18/25 03:26
INR 1.10 05/18/25 03:26
APTT 30.1 Sec (23.4-35.0) 05/17/25 23:54
Estimated Creat Clear 56 ml/min 05/22/25 09:08
Lactic Acid 1.4 mmol/L (0.7-2.0) 05/18/25 12:23
Total Bilirubin < 0.1 mg/dl (0.2-1.3) L 05/22/25 09:08
AST 14 U/L (14-36) 05/22/25 09:08
ALT 26 U/L (0-35) 05/22/25 09:08
Alkaline Phosphatase 104 U/L (38-126) 05/22/25 09:08
Most recent labs reviewed.
Micro Results:
05/17/25 20:46 Blood Culture - Final
Blood/Venous No Growth - Final Report
05/17/25 20:46 Blood Culture - Final
Blood/Venous No Growth - Final Report
05/17/25 20:46 Salmonella/Shigella Culture - Final
Feces/Stool No Salmonella, Shigella, Aeromonas or Plesiomonas species
isolated.
Campylobacter Culture - Final
No Campylobacter species isolated.
Shiga Toxin Test - Final
No E. coli Shiga Toxin 1 or 2 detected.
05/17/25 23:54 Wound Culture - Final
Abdomen Klebsiella pneumoniae
Enterobacter cloacae
Gram Stain - Final
05/18/25 03:25 Urine Culture - Final
Urine No Significant Growth
05/18/25 03:25 MRSA Screen - Final
Nose No Methicillin Resistant Staphylococcus aureus isolated.
05/17/25 20:46 Cryptosporidium/Giardia - Final
Feces/Stool Negative for Cryptosporidium and/or Giardia Lamblia
antigens.
C. difficile GDH Antigen & Toxins - Final
Negative for toxigenic C.difficile
05/17/25 20:46 - Final
Feces/Stool Negative for Norovirus GI and GII.
--- NOTE | 2025-05-25 09:03 | W.PN.HOSP.TC ---
Today's Communication/Plan
-
see bold
Assessment / Plan
Assessment / Plan
HPI: 74 yo woman with hx PUD s/p partial gastretcomy and Billroth II anastomosis (1999), HFrEF (35-40% 05/24), recent diagnosis gastric cancer s/p J tube placement 05/02/25 [facility] of abdominal pain and
diarrhea.
CT
IMPRESSION:
CT findings are most suspicious for an enteritis.
Loculated fluid collection in the subcutaneous anterior abdominal wall at midline adjacent to the percutaneous jejunal catheter. This could represent a seroma or an infected fluid collection. Few small locules of gas along the course of the catheter
deep to the anterior abdominal wall.
Septic Shock
Enteritis seen on CT
Loculated fluid collection near J-tube: seroma versus infected fluid collection, likely infected J-tube site, noted reports pustular appearance around J-site, J-tube fell out, replaced by Dr Jesse Brown
Diarrhea
Metabolic Acidosis
-Appreciate assistant maintenance manager input, out of the ICU on 05/21, status post Levophed and vasopressin
-Consult surgical oncology Dr Jesse Brown appreciated dislodged J-tube replaced with red cath ok to use for tube feeds following 05/18/25 tube study confirming placement
-Stool studies, C. Diff Norvirus neg
-Blood cx's ngtd, wound cx pos for Klebsiella and Enterobacter, sensitivities appreciated both sensitive to Bactrim
-Metabolic Acidosis resolved, bicarb gtt completed
-MRSA screen neg, status post vancomycin/Zosyn, ID changed Rocephin to cefdinir solution through tube, plan for 4 weeks of treatment
-Appreciate ID input, who recommends removal of J tube catheter
-Appreciate surgical oncology input, difficult situation, as Dr. Brown feels that patient may not be able to tolerate another ex lap for another feeding tube placement
-05/[address] scan shows improved collection, increased gas
-Cleared by SPL for reg diet/thin liquids, and supplemental noctural tube feeds
-Discharge to short-term rehab when bed available, follow-up in ID clinic in 4 weeks
Arthritis
-Patient self diagnosed with RA, months ago, d/t ulnar deviation hands, never formally evaluated by Parts Interpreter
-Today is day 5 of prednisone 40 mg daily, will discontinue
-Recommend outpatient follow-up with rheumatology
Report of black stool/ possible Melena
Anemia of Chronic disease
Chronic Iron Deficiency Anemia
-Appreciate GI input, anemia/heme positive stools likely due to her anastomotic ulcer, which may be an underlying gastric cancer, path showed at least LGD from superficial biopsies
-Change Protonix IV to 40 mg p.o. twice daily
-Appreciate hematology input, recommend IV iron
-Status post 1 unit packed red blood cells 05/20 for hemoglobin of 6.8, hemoglobin improved to 7.5
-Continue to trend hemoglobin, transfuse as needed
HFrEF
-TTE 05/24 with EF 35-40%, follow up repeat ECHO
-Resumed Lasix w/ holding parameters
-Entresto resumed at reduced dose with holding parameters, titrate up to home dose as tolerated
-Home spironolactone remains on hold
-Home Coreg resumed with holding parameters
-daily weight I/O
Acute Hypoxia
-Currently requiring 1 L of oxygen, continue incentive spirometer, wean oxygen as tolerated
Hyperkalemia
-S/p IV insulin/dextrose, bicarb, IVF, Calcium in the ER
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
-Resolved
Recent diagnosis of possible gastric cancer per biopsy report
-S/p ex-lap without finding of metastatic disease in abdomen and placement J-tube on 04/28/25
-Appreciate oncology input, biopsy shows low-grade dysplasia at anastomosis site, no definitive evidence of gastric cancer
Severe Protein Calorie Malnutrition due to Chronic Illness and Gastroparesis S/p feeding Jejunostomy on 04/28/2025
-Continue oral intake with nocturnal tube feeds
PT/OT- rec SNF, she is from SNF
DVT PPx - SCDs due to melena & anemia
DNR
Total time spent to see the patient on the floor, examine the patient, review data and lab results, discuss treatment plan with patient, nursing staff around 40 minutes.
Physical Exam
General: Appears Chronically Ill (cachectic), no acute distress, appears comfortable at this time.
HEENT: PERRLA
Respiratory: Clear; No Wheezes
Cardiac: S1/S2 and Regular Rhythm; No JVD
GI: abd soft nontender bowel sounds noted J-tube site noted
Musculoskeletal:ulnar deviation hands
[place] dependent edema of elbow is noted
Skin: Warm and Dry; No Rash
Neuro: AO x 3 conversant coherent
Psych: Calm
Anticipated Discharge: Within 24 hours
Subjective/Interval History
-
Date of Service: May 25, 2025
Denies abd pain. No N/V. Still complains of hand pain. No fever.
Objective Data
-
Vital Signs:
Vital Signs
Temp Pulse Resp BP Pulse Ox
98.3 F 91 18 130/80 98
05/25/25 07:40 05/25/25 07:40 05/25/25 07:40 05/25/25 07:40 05/25/25 07:40
I&O
05/24/25 05/25/25 05/26/25
06:59 06:59 06:59
Intake Total 1500 / 1500 90 / 90
Balance 1500 / 1500 90 / 90
[2025-05-25] MEDS: COREG 6.25 MG PO ×2 (09:15→19:28)
[2025-05-25] MEDS: VITAMIN B-12 1000 MCG PO (09:15)
[2025-05-25] MEDS: DELTASONE 40 MG PO (09:15)
[2025-05-25] MEDS: ASPIR LOW (ENTERIC COATED) 81 MG PO (09:16)
[2025-05-25] MEDS: NSS (PRESERVATIVE FREE) 10 ML IV ×2 (09:16→19:24)
[2025-05-25] MEDS: HEPARIN 2500 UNITS SC ×2 (09:16→19:23)
[2025-05-25] MEDS: PROTONIX IV 40 MG IV ×2 (09:16→19:24)
[2025-05-25] MEDS: VITAMIN D3 (cholecalciferol) 25 MCG PO (09:16)
[2025-05-25] MEDS: OMNICEF TUBE (09:31)
[2025-05-25] MEDS: FLUSH (NSS) IV (09:31)
[2025-05-25 10:46] LABS: Hematocrit 24.9 % (37.0-47.0); Hemoglobin 7.8 g/dL (12.0-16.0); Mean Corp Hgb Conc. 31.3 g/dL (33.0-37.0); Mean Corpuscular Volume 85.3 fL (81.0-99.0); Platelet Count 668 10^3/uL (130-400); Red Cell Dist. Width 20.7 % (11.5-14.5)
[2025-05-25 10:51] LABS: Blood Urea Nitrogen 64 mg/dl (7-17); Calcium 9.1 mg/dl (8.4-10.2); Carbon Dioxide 30 mmol/L (22-30); Chloride 101 mmol/L (98-107); Estimated Creatinine Clearance 59 ml/min; Glucose 85 mg/dl (70-99); Potassium 5.3 mmol/L (3.5-5.1); Sodium 135 mmol/L (135-145); eGFR > 60.00
[2025-05-25 10:58] LABS: Nucleated Red Blood Cells % 0.7 %
[2025-05-25] MEDS: ENTRESTO 24 MG/26 MG PO ×2 (11:01→19:29)
[2025-05-25] MEDS: LASIX 20 MG PO (11:12)
[2025-05-25] MEDS: OMNICEF 300 MG PO ×2 (11:37→19:23)
--- NOTE | 2025-05-25 11:50 | CM ---
Chart reviewed. Plan is for SNF once located.
[facility] does not have any bed availability today. Spoke w/ patient, stating other facilities will need to be explored as she is medically stable for d/c. Patient became anxious asking if she can remain in hospital until there's a
bed at either facility. CM shared that patient will have to explore another facility and she can't stay in the hospital as CM does not know when there will be an available bed. CM offered SNF list for patient to review, patient agreeable stating she
wants to review w/ her .
Updated hospitalist
Plan: SNF
[2025-05-25 15:25] VITALS: BP 127/73
[2025-05-25] MEDS: TYLENOL ORAL SOLUTION 650 MG PO (19:23)
[2025-05-25 23:15] VITALS: BP 129/69
[2025-05-26] VITALS (7 sets, daily range): BP systolic 122–140; BP diastolic 61–72; BMI 16.5
[2025-05-26] MEDS: TYLENOL ORAL SOLUTION 650 MG PO (02:59)
[2025-05-26] MEDS: PROTONIX IV 40 MG IV (08:20)
[2025-05-26] MEDS: FLUSH (NSS) 2 FLUSH IV (08:22)
[2025-05-26] MEDS: NSS (PRESERVATIVE FREE) 10 ML IV (08:22)
[2025-05-26] MEDS: ASPIR LOW (ENTERIC COATED) 81 MG PO (08:23)
[2025-05-26] MEDS: VITAMIN B-12 1000 MCG PO (08:23)
[2025-05-26] MEDS: COREG 6.25 MG PO ×2 (08:23→20:57)
[2025-05-26 08:24] LABS: Hematocrit 23.2 % (37.0-47.0); Hemoglobin 6.9 g/dL (12.0-16.0); Mean Corp Hgb Conc. 29.7 g/dL (33.0-37.0); Mean Corpuscular Volume 86.9 fL (81.0-99.0); Platelet Count 597 10^3/uL (130-400); Red Cell Dist. Width 21.7 % (11.5-14.5)
[2025-05-26] MEDS: HEPARIN 2500 UNITS SC ×2 (08:24→20:57)
[2025-05-26] MEDS: LASIX 20 MG PO (08:24)
[2025-05-26] MEDS: VITAMIN D3 (cholecalciferol) 25 MCG PO (08:24)
[2025-05-26] MEDS: OMNICEF 300 MG PO ×2 (08:32→20:59)
[2025-05-26 08:48] LABS: Blood Urea Nitrogen 57 mg/dl (7-17); Calcium 8.6 mg/dl (8.4-10.2); Carbon Dioxide 27 mmol/L (22-30); Chloride 101 mmol/L (98-107); Estimated Creatinine Clearance 58 ml/min; Glucose 108 mg/dl (70-99); Magnesium 2.1 mg/dl (1.6-2.3); Potassium 5.1 mmol/L (3.5-5.1); Sodium 136 mmol/L (135-145); eGFR > 60.00
[2025-05-26] MEDS: ENTRESTO 24 MG/26 MG PO ×2 (08:57→20:57)
--- NOTE | 2025-05-26 09:07 | W.PN.HOSP.TC ---
Today's Communication/Plan
-
see bold
Assessment / Plan
Assessment / Plan
HPI: 74 yo woman with hx PUD s/p partial gastretcomy and Billroth II anastomosis (1999), HFrEF (35-40% 05/24), recent diagnosis gastric cancer s/p J tube placement 05/02/[address] [facility] of [facility] pain and
diarrhea.
CT
IMPRESSION:
CT findings are most suspicious for an enteritis.
Loculated fluid collection in the subcutaneous anterior abdominal wall at midline adjacent to the percutaneous jejunal catheter. This could represent a seroma or an infected fluid collection. Few small locules of gas along the course of the catheter
deep to the anterior abdominal wall.
Septic Shock
Enteritis seen on CT
Loculated fluid collection near J-tube: seroma versus infected fluid collection, likely infected J-tube site, noted reports pustular appearance around J-site, J-tube fell out, replaced by Dr Jesse Brown
Diarrhea
Metabolic Acidosis
-Appreciate assembler truck trailer input, out of the ICU on 05/21, status post Levophed and vasopressin
-Consult surgical oncology Dr Jesse Brown appreciated dislodged J-tube replaced with red cath ok to use for tube feeds following 05/18/25 tube study confirming placement
-Stool studies, C. Diff Norvirus neg
-Blood cx's ngtd, wound cx pos for Klebsiella and Enterobacter, sensitivities appreciated both sensitive to Bactrim
-Metabolic Acidosis resolved, bicarb gtt completed
-MRSA screen neg, status post vancomycin/Zosyn, ID changed Rocephin to cefdinir solution through tube, plan for 4 weeks of treatment. F/u w/ ID in office in 4 weeks
-Appreciate ID input, who recommends removal of J tube catheter
-Appreciate surgical oncology input, difficult situation, as Dr. Brown feels that patient may not be able to tolerate another ex lap for another feeding tube placement
-05/[address] scan shows improved collection, increased gas
-Cleared by SPL for reg diet/thin liquids, and supplemental noctural tube feeds
Arthritis
-Patient self diagnosed with RA, months ago, d/t ulnar deviation hands, never formally evaluated by Senior Relationship Manager
-S/p 5 days of prednisone 40 mg daily, ID would prefer pt be off of steroids for healing
-Recommend outpatient follow-up with rheumatology
Melena
Nodularity/ulceration at anastomotic site
Anemia of Chronic disease
Chronic Iron Deficiency Anemia
-Appreciate GI input, anemia/heme positive stools likely due to her anastomotic ulcer, which may be an underlying gastric cancer, path showed at least LGD from superficial biopsies
-Appreciate hematology input, s/p IV iron
-Status post 1 unit packed red blood cells 05/20 for hemoglobin of 6.8
-Hemoglobin 6.9, will order another unit of blood today 05/26
-GI recommends n.p.o., changed Protonix to Protonix drip, started Carafate
-May need endoscopy date TBD
HFrEF
-TTE 05/24 with EF 35-40%, follow up repeat ECHO
-Resumed Lasix w/ holding parameters
-Entresto resumed at reduced dose with holding parameters, titrate up to home dose as tolerated
-Home spironolactone remains on hold
-Home Coreg resumed with holding parameters
-daily weight I/O
Acute Hypoxia
-Resolved, continue incentive spirometer
Hyperkalemia
-S/p IV insulin/dextrose, bicarb, IVF, Calcium in the ER
-Held VICE PRESIDENT GLOBAL ADVERTISING SALES Spironolactone and Entresto (Entresto since resumed as above)
-Resolved
Recent diagnosis of possible gastric cancer per biopsy report
-S/p ex-lap without finding of metastatic disease in abdomen and placement J-tube on 04/28/25
-Appreciate oncology input, biopsy shows low-grade dysplasia at anastomosis site, no definitive evidence of gastric cancer
Severe Protein Calorie Malnutrition due to Chronic Illness and Gastroparesis S/p feeding Jejunostomy on 04/28/2025
-Continue oral intake with nocturnal tube feeds when able
PT/OT- rec SNF, she is from SNF
DVT PPx - SCDs due to melena & anemia
DNR
Updated on phone 05/26
Total time spent to see the patient on the floor, examine the patient, review data and lab results, discuss treatment plan with patient, nursing staff around 50 minutes.
Physical Exam
General: Appears Chronically Ill (cachectic), no acute distress, appears comfortable at this time.
HEENT: PERRLA
Respiratory: Clear; No Wheezes
Cardiac: S1/S2 and Regular Rhythm; No JVD
GI: abd soft nontender bowel sounds noted J-tube site noted
Musculoskeletal:ulnar deviation hands
[place] dependent edema of elbow is noted
Skin: Warm and Dry; No Rash
Neuro: AO x 3 conversant coherent
Psych: Calm
Anticipated Discharge: > 48 hours
Subjective/Interval History
-
Date of Service: May 26, 2025
Patient had a black stool this morning. She denies abdominal pain. No fever, no vomiting.
Objective Data
-
Labs:
Laboratory Results
05/26/25
07:06
WBC 24.6 H
Hgb 6.9 L*
Hct 23.2 L
Plt Count 597 H
Sodium 136
Potassium 5.1
Chloride 101
Carbon Dioxide 27
BUN 57 H
Creatinine 0.6
Glucose 108 H
Calcium 8.6
Vital Signs:
Vital Signs
Temp Pulse Resp BP Pulse Ox
98.2 F 78 18 122/62 96
05/25/25 23:15 05/26/25 08:23 05/25/25 23:15 05/26/25 08:24 05/25/25 23:15
I&O
05/25/25 05/26/25 05/27/25
06:59 06:59 06:59
Intake Total 90 / 90
Balance 90
--- NOTE | 2025-05-26 09:46 | W.PN.ID1 ---
Date of Service
Date of Service: May 26, 2025
Today's Communication
- would prefer to see steroids stopped, outpatient she can be assessed for RA and possibility of DMARD use
- c/w cefdinir solution via the tube, plan 4 weeks of treatment 05/17-06/13
- follow up in ID clinic in about 4 weeks
Assessment / Plan
Catheter Infection
Gastroparesis
Gastric ulcer with low grade dysplasia
- repeat CT scan with improved collection, increased gas; overall with improved weight since admission
- the team has significant concerns about Ms Lopez's ability to tolerate another ex-lap for replacement of feeding tube, since the current tube cannot be removed we can try suppressive antibiotics and reassess as an outpatient in 3-4 weeks
acknowledging that this is a complex situation with advanced frailty, cachexia. The tube is critical to her rehabilitation.
- would prefer to see steroids stopped, outpatient she can be assessed for RA and possibility of DMARD use
- c/w cefdinir solution via the tube, plan 4 weeks of treatment 05/17-06/13
- follow up in ID clinic in about 4 weeks
Chief Complaint
-: Other (catheter infection)
Subjective / Review of Systems
afebrile
bp stable
tolerating current therapies
Vital Signs / Physical Exam
Vital Signs
Vital Signs
Temp Pulse Resp BP Pulse Ox
97.6 F 78 16 122/62 97
05/26/25 07:43 05/26/25 08:23 05/26/25 07:43 05/26/25 08:24 05/26/25 07:43
Physical Exam
Constitutional: No Acute Distress, Chronically Ill and Cachetic
Cardiovascular: Regular Rate and S1/S2; Negative Murmur or Rub
Pulmonary: Clear and Symmetric; Negative Wheezes or Rales
Gastrointestinal: Soft, Non Tender, Non Distended and Normal Bowel Sounds
Skin: Warm and Dry; Negative Rash or Jaundice
Objective Data
Lab Data
Lab Results
05/26/25 07:06
05/26/25 07:06
PT 14.7 Sec (11.4-14.6) H 05/18/25 03:26
INR 1.10 05/18/25 03:26
APTT 30.1 Sec (23.4-35.0) 05/17/25 23:54
Estimated Creat Clear 58 ml/min 05/26/25 07:06
Lactic Acid 1.4 mmol/L (0.7-2.0) 05/18/25 12:23
Total Bilirubin < 0.1 mg/dl (0.2-1.3) L 05/22/25 09:08
AST 14 U/L (14-36) 05/22/25 09:08
ALT 26 U/L (0-35) 05/22/25 09:08
Alkaline Phosphatase 104 U/L (38-126) 05/22/25 09:08
Most recent labs reviewed.
Micro Results:
05/17/25 20:46 Blood Culture - Final
Blood/Venous No Growth - Final Report
05/17/25 20:46 Blood Culture - Final
Blood/Venous No Growth - Final Report
05/17/25 20:46 Salmonella/Shigella Culture - Final
Feces/Stool No Salmonella, Shigella, Aeromonas or Plesiomonas species
isolated.
Campylobacter Culture - Final
No Campylobacter species isolated.
Shiga Toxin Test - Final
No E. coli Shiga Toxin 1 or 2 detected.
05/17/25 23:54 Wound Culture - Final
Abdomen Klebsiella pneumoniae
Enterobacter cloacae
Gram Stain - Final
05/18/25 03:25 Urine Culture - Final
Urine No Significant Growth
05/18/25 03:25 MRSA Screen - Final
Nose No Methicillin Resistant Staphylococcus aureus isolated.
05/17/25 20:46 Cryptosporidium/Giardia - Final
Feces/Stool Negative for Cryptosporidium and/or Giardia Lamblia
antigens.
C. difficile GDH Antigen & Toxins - Final
Negative for toxigenic C.difficile
05/17/25 20:46 - Final
Feces/Stool Negative for Norovirus GI and GII.
Care Review
Plan reviewed with: Physician (Dr Erazo)
--- NOTE | 2025-05-26 11:51 | W.PN.GI.CBS2 ---
Addendum entered and electronically signed by Beverly Zamora MD 05/26/25 19:11:
I saw and examined the patient.
The HUMAN [employer]LL[employer]'s note was reviewed and I agree with the note.
Comment: Reconsulted for melena and acute blood loss anemia with underlying history of chronic iron deficiency anemia. She does have a prior history of anastomotic ulcer and was recently on steroids for RA possible that she may have bleeding
related to the known anastomotic ulcer seen on EGD 02/2025 exacerbated by recent use of steroids. Will start her on PPI drip and Carafate, she ate today so unable to do endoscopy today. If bleeding resolves could hold off on repeat endoscopy but if
she continues to drop her hemoglobin will schedule for endoscopy likely Thursday sooner if she has active bleeding.
Eventual surgery for low-grade dysplasia from anastomotic ulcer with Dr. Brown
She also has a history of Catalan's esophagus biopsies indefinite for dysplasia on endoscopy in February
Also has a history of iron deficiency anemia and received iron infusions
She also has infection J-tube site and is on antibiotics she still has pus draining from around her J-tube site. She is able to tolerate oral intake and may need to consider adding Ensure or boost twice daily with her meals and if her infection
does not resolve may need to remove the J-tube and drain the abscess subcutaneous around the tube.
She also has history of gastroparesis.
Original Note:
Today's Communication / Plan
-
As per plan
Assessment / Plan
-
74yo female with distant hx partial gastrectomy/BII surgery. Recently had EGD/colonoscopy for eval of anemia. EGD 02/28/25 showed retained food, gastroparesis, and nodularity/ulceration at anastomosis. Bx showed low grade dysplasia. Pt referred to
Surgical Oncology Dr Brown due to suspicion for underlying malignancy. Given her cachexia and weight loss, plan was for feeding J tube placement prior to gastric resection. She had J tube placed 04/28 and started TF. Admitted 05/17/25 with abd pain
and purulent drainage from J tube site. CT shows possible enteritis and possible infected fluid collection along course of catheter. The patient was treated for septic shock and metabolic acidosis. Has improved. Initially was given 1 unit of
packed red blood cells with improvement of hemoglobin. She had negative stool studies. Treated for loculated fluid collection around J-tube. The J-tube fell out and was replaced by Dr. Brown. Continues on antibiotics dictated by ID for fluid
collection. Continues on aspirin 81 mg. Was given IV iron. Was on prednisone 40 mg daily for 'arthritis'. Asked to reevaluate patient as with melena. Patient had brown bowel movement documented 05/24. On 05/25 started having black stools.
Hemoglobin on 05/23 was 8.5 started decreasing and was 7.8 yesterday, 6.9 this morning. Resumed oral feeds and J-tube feeds (nocturnally).
02/28/25- EGD (Tracey): Esophageal mucosal changes suspicious for Catalan's esophagus. (Indefinite for dysplasia arising in a background of intestinal metaplasia and ulceration/inflammation), A medium amount of food (residue) in the stomach Removal was
successful - Billroth II gastrojejunostomy was found, characterized by nodularity, edema and ulceration-Granular, nodular and ulcerated mucosa at anastomosis.(Small intestinal mucosa with low-grade dysplasia, in a background of ulceration and
acutely inflamed granular tissue). Multiple gastric polyps. (Hyperplastic polyp with acutely inflamed granulation tissue and reactive changes, no evidence for dysplasia).
Impression:
Melena
->Nodularity/ulceration at anastomosis (gastrectomy/Billroth II), recent EGD with low-grade dysplasia 02/28/2025
Status post J-tube
Infected loculated fluid collection adjacent to jejunal cath
Gastroparesis
Chronic anemia
Plan:
- Change PPI to drip
- Add Carafate 4 times daily
- Discussed with medicine attending who will be ordering 1 unit packed red blood cell
- Make patient n.p.o. except for p.o. meds. No more nocturnal tube feeds
- Discussed with patient possibility of EGD. Cannot perform today as patient ate.
- Repeat CBC, BMP in a.m.
- Discussed with nurse if has further episodes of melena contact GI.
- If with change with vital signs contact GI or medicine attending
Subjective
Subjective
Date of Service: May 26, 2025
Asked to reevaluate patient as with melena. Patient had brown bowel movement documented 05/24. On 05/25 started having black stools. Hemoglobin on 05/23 was 8.5 started decreasing and was 7.8 yesterday, 6.9 this morning. Resumed oral feeds and
J-tube feeds (nocturnally). Patient did eat this morning and states she 'did good'. She denies any abdominal pain. She has had 2 episodes of melena this morning. I did witness this 1 currently. Black thick stool. She is being typed and
screened for 1 unit of packed red blood cells. She has been on pantoprazole 40 mg IV twice daily since arrival. She has been on prednisone 40 mg daily. This was discontinued, her last dose was yesterday. She continues on aspirin 81 mg daily. She
continues on cefdinir for subcu collection around J-tube. Patient denies any fever, chills, nausea, vomiting or abdominal discomfort.
Objective
Data Reviewed
Laboratory Data:
Laboratory Results
05/26/25 07:06
05/26/25 07:06
Laboratory Results
PT 14.7 Sec (11.4-14.6) H 05/18/25 03:26
INR 1.10 05/18/25 03:26
APTT 30.1 Sec (23.4-35.0) 05/17/25 23:54
Phosphorus 4.4 mg/dl (2.5-4.5) 05/26/25 07:06
Magnesium 2.1 mg/dl (1.6-2.3) 05/26/25 07:06
Total Bilirubin < 0.1 mg/dl (0.2-1.3) L 05/22/25 09:08
AST 14 U/L (14-36) 05/22/25 09:08
ALT 26 U/L (0-35) 05/22/25 09:08
Alkaline Phosphatase 104 U/L (38-126) 05/22/25 09:08
Lipase 179 U/L (23-300) 05/17/25 19:45
Vital Signs and I&O:
Vital Signs
Temp Pulse Resp BP Pulse Ox
97.6 F 78 16 122/62 97
05/26/25 07:43 05/26/25 08:23 05/26/25 07:43 05/26/25 08:24 05/26/25 07:43
I&O
05/25/25 05/26/25 05/27/25
06:59 06:59 06:59
Intake Total 90 / 90
Balance 90 / 90
Physical Exam
Physical Exam
HEENT: Anicteric
Cardiology: Normal Sinus Rhythm
Pulmonary: Clear (Anterior)
GI: Soft, Non Distended, Non Tender, Normal Bowel Sounds and Other (J-tube in place, small amount of purulent drainage on dressing)
Rectal: Other (Melena appreciated on pad)
Neuro: Non Focal
--- NOTE | 2025-05-26 12:09 | CM ---
Chart reviewed. Plan is for SNF when medically stable. [facility] has a bed today if patient is ready
Per hospitalist, patient's hgb is 6.9, will plan for blood infusion. Will keep patient today, may not be ready for discharge tomorrow. Patient now NPO for now.
Updated [facility] admissions
Plan: SNF when medically stable
[2025-05-26] MEDS: FLUSH (NSS) 1 FLUSH IV (13:05)
[2025-05-26] MEDS: PROTONIX 100 IV ×2 (13:06→22:13)
[2025-05-26] MEDS: CARAFATE SUSPENSION 1 GM PO ×2 (17:14→21:06)
[2025-05-26] MEDS: NSS (PRESERVATIVE FREE) IV (20:58)
[2025-05-27] MEDS: TYLENOL ORAL SOLUTION 650 MG PO (02:55)
[2025-05-27 06:00] VITALS: BMI 16.5
--- NOTE | 2025-05-27 08:58 | W.PN.HOSP.TC ---
Today's Communication/Plan
-
see bold
Assessment / Plan
Assessment / Plan
HPI: 74 yo woman with hx PUD s/p partial gastretcomy and Billroth II anastomosis (1999), HFrEF (35-40% 05/24), recent diagnosis gastric cancer s/p J tube placement 05/02/25 [facility] with report of abdominal pain and
diarrhea.
CT
IMPRESSION:
CT findings are most suspicious for an enteritis.
Loculated fluid collection in the subcutaneous anterior abdominal wall at midline adjacent to the percutaneous jejunal catheter. This could represent a seroma or an infected fluid collection. Few small locules of gas along the course of the catheter
deep to the anterior abdominal wall.
Septic Shock
Enteritis seen on CT
Loculated fluid collection near J-tube: seroma versus infected fluid collection, likely infected J-tube site, noted reports pustular appearance around J-site, J-tube fell out, replaced by Dr Jesse Brown
Diarrhea
Metabolic Acidosis
-Appreciate insole cementer input, out of the ICU on 05/21, status post Levophed and vasopressin
-Consult surgical oncology Dr Jesse Brown appreciated dislodged J-tube replaced with red cath ok to use for tube feeds following 05/18/25 tube study confirming placement
-Stool studies, C. Diff Norvirus neg
-Blood cx's ngtd, wound cx pos for Klebsiella and Enterobacter, sensitivities appreciated both sensitive to Bactrim
-Metabolic Acidosis resolved, bicarb gtt completed
-MRSA screen neg, status post vancomycin/Zosyn, ID changed Rocephin to cefdinir solution through tube, plan for 4 weeks of treatment. F/u w/ ID in office in 4 weeks
-Appreciate ID input, who recommends removal of J tube catheter
-Appreciate surgical oncology input, difficult situation, as Dr. Brown feels that patient may not be able to tolerate another ex lap for another feeding tube placement
-05/[address] scan shows improved collection, increased gas
-Cleared by SPL for reg diet/thin liquids, and supplemental noctural tube feeds, holding now
Arthritis
-Patient self diagnosed with RA, months ago, d/t ulnar deviation hands, never formally evaluated by [facility]
-S/p 5 days of prednisone 40 mg daily, ID would prefer pt be off of steroids for healing
-Recommend outpatient follow-up with rheumatology
Melena
Nodularity/ulceration at anastomotic site
Anemia of Chronic disease
Chronic Iron Deficiency Anemia
-Appreciate GI input, anemia/heme positive stools likely due to her anastomotic ulcer, which may be an underlying gastric cancer, path showed at least LGD from superficial biopsies
-Appreciate hematology input, s/p IV iron
- Transfuse 1 unit on 05/20 for Hgb 6.8, transfused a second unit on 05/26 for Hgb 6.9
-Hemoglobin 8.6 posttransfusion, continue to trend and transfuse as needed
-GI changed Protonix to Protonix drip, started Carafate
HFrEF
-TTE 05/24 with EF 35-40%, follow up repeat ECHO
-Resumed Lasix w/ holding parameters
-Entresto resumed at reduced dose with holding parameters, titrate up to home dose as tolerated
-Home spironolactone remains on hold
-Home Coreg resumed with holding parameters
-daily weight I/O
Acute Hypoxia
-Resolved, continue incentive spirometer
Hyperkalemia
-S/p IV insulin/dextrose, bicarb, IVF, Calcium in the ER
-Held FELTER TENNIS BALLS Spironolactone and Entresto (Entresto since resumed as above)
-Resolved
Recent diagnosis of possible gastric cancer per biopsy report
-S/p ex-lap without finding of metastatic disease in abdomen and placement J-tube on 04/28/25
-Appreciate oncology input, biopsy shows low-grade dysplasia at anastomosis site, no definitive evidence of gastric cancer
Severe Protein Calorie Malnutrition due to Chronic Illness and Gastroparesis S/p feeding Jejunostomy on 04/28/2025
-Continue oral intake with nocturnal tube feeds when able
Goals of care
-05/27 Discussed with patient that she has multiple comorbidities that we do not have a cure for. Explained to her that she would likely go in and out of the hospital for one reason or another. Recommended that she discuss with her what her
wishes are for the future regarding CODE STATUS, end-of-life care
PT/OT- rec SNF, she is from SNF
DVT PPx - SCDs due to melena & anemia
DNR
Updated on phone 05/26
Total time spent to see the patient on the floor, examine the patient, review data and lab results, discuss treatment plan with patient, nursing staff around 51 minutes.
Physical Exam
General: Appears Chronically Ill (cachectic), no acute distress, appears comfortable at this time.
HEENT: PERRLA
Respiratory: Clear; No Wheezes
Cardiac: S1/S2 and Regular Rhythm; No JVD
GI: abd soft nontender bowel sounds noted J-tube site noted
Musculoskeletal:ulnar deviation hands
[place] dependent edema of elbow is noted
Skin: Warm and Dry; No Rash
Neuro: AO x 3 conversant coherent
Psych: Calm
Anticipated Discharge: 24 - 48 hours
Subjective/Interval History
-
Date of Service: May 27, 2025
Patient denies abdominal pain, denies nausea, denies vomiting. She had multiple black stools yesterday, none today. No fever.
Objective Data
-
Labs:
Laboratory Results
05/27/25
08:38
WBC Pending
Hgb Pending
Hct Pending
Plt Count Pending
Sodium Pending
Potassium Pending
Chloride Pending
Carbon Dioxide Pending
BUN Pending
Creatinine Pending
Glucose Pending
Calcium Pending
Vital Signs:
Vital Signs
Temp Pulse Resp BP Pulse Ox
97.4 F 69 16 125/64 95
05/27/25 07:20 05/27/25 07:20 05/27/25 07:20 05/26/25 23:45 05/27/25 07:20
I&O
05/26/25 05/27/25 05/28/25
06:59 06:59 06:59
Intake Total 550 / 550
Balance 550 / 550
[2025-05-27 09:05] VITALS: BP 124/62
[2025-05-27 09:05] LABS: Hematocrit 27.9 % (37.0-47.0); Hemoglobin 8.6 g/dL (12.0-16.0); Mean Corp Hgb Conc. 30.8 g/dL (33.0-37.0); Mean Corpuscular Volume 88.3 fL (81.0-99.0); Platelet Count 548 10^3/uL (130-400); Red Cell Dist. Width 22.5 % (11.5-14.5)
[2025-05-27] MEDS: CARAFATE SUSPENSION 1 GM PO ×4 (09:08→21:20)
[2025-05-27] MEDS: PROTONIX 100 IV ×2 (09:08→21:18)
[2025-05-27] MEDS: OMNICEF 300 MG PO ×2 (09:43→21:19)
[2025-05-27] MEDS: LASIX 20 MG PO (09:44)
[2025-05-27] MEDS: COREG 6.25 MG PO ×2 (09:44→21:18)
[2025-05-27] MEDS: VITAMIN D3 (cholecalciferol) 25 MCG PO (09:50)
[2025-05-27] MEDS: FLUSH (NSS) 1 FLUSH IV (09:52)
[2025-05-27 10:07] LABS: Blood Urea Nitrogen 40 mg/dl (7-17); Calcium 8.6 mg/dl (8.4-10.2); Carbon Dioxide 30 mmol/L (22-30); Chloride 98 mmol/L (98-107); Estimated Creatinine Clearance 49 ml/min; Glucose 68 mg/dl (70-99); Potassium 4.8 mmol/L (3.5-5.1); Sodium 133 mmol/L (135-145); eGFR > 60.00
[2025-05-27 11:25] VITALS: BP 100/59
--- NOTE | 2025-05-27 11:43 | W.PN.GI.CBS2 ---
Today's Communication / Plan
-
Continue PPI drip for today can change to IV twice daily tomorrow since she has no further bleeding, continue carafate
Hemoglobin remained stable posttransfusion will hold on repeat endoscopy for now
Assessment / Plan
-
74yo female with distant hx partial gastrectomy/BII surgery. Recently had EGD/colonoscopy for eval of anemia. EGD 02/28/25 showed retained food, gastroparesis, and nodularity/ulceration at anastomosis. Bx showed low grade dysplasia. Pt referred to
Surgical Oncology Dr Brown due to suspicion for underlying malignancy. Given her cachexia and weight loss, plan was for feeding J tube placement prior to gastric resection. She had J tube placed 04/28 and started TF. Admitted 05/17/25 with abd pain
and purulent drainage from J tube site. CT shows possible enteritis and possible infected fluid collection along course of catheter. The patient was treated for septic shock and metabolic acidosis. Has improved. Initially was given 1 unit of
packed red blood cells with improvement of hemoglobin. She had negative stool studies. Treated for loculated fluid collection around J-tube. The J-tube fell out and was replaced by Dr. Brown. Continues on antibiotics dictated by ID for fluid
collection. Continues on aspirin 81 mg. Was given IV iron. Was on prednisone 40 mg daily for 'arthritis'. Asked to reevaluate patient as with melena. Patient had brown bowel movement documented 05/24. On 05/25 started having black stools.
Hemoglobin on 05/23 was 8.5 started decreasing and was 7.8 yesterday, 6.9 this morning. Resumed oral feeds and J-tube feeds (nocturnally).
02/28/25- EGD (Tracey): Esophageal mucosal changes suspicious for Catalan's esophagus. (Indefinite for dysplasia arising in a background of intestinal metaplasia and ulceration/inflammation), A medium amount of food (residue) in the stomach Removal was
successful - Billroth II gastrojejunostomy was found, characterized by nodularity, edema and ulceration-Granular, nodular and ulcerated mucosa at anastomosis.(Small intestinal mucosa with low-grade dysplasia, in a background of ulceration and
acutely inflamed granular tissue). Multiple gastric polyps. (Hyperplastic polyp with acutely inflamed granulation tissue and reactive changes, no evidence for dysplasia).
Impression:
Melena
->Nodularity/ulceration at anastomosis (gastrectomy/Billroth II), recent EGD with low-grade dysplasia 02/28/2025
Status post J-tube
Infected loculated fluid collection adjacent to jejunal cath
Gastroparesis
Barretts indefinite for dysplasia
Chronic anemia
Plan:
-Most likely bleeding from known anastomotic ulcer. Bleeding seems to have resolved after starting PPI drip and Carafate.
-Hemoglobin stable post 1 unit of packed red blood cells
-Eventual surgery for low-grade dysplasia from anastomotic ulcer with Dr. Brown
-Will hold on repeat endoscopy since bleeding seems to have resolved
-She also has a history of Catalan's esophagus biopsies indefinite for dysplasia on endoscopy in February
-Also has a history of iron deficiency anemia and received iron infusions
-She also has infection J-tube site and is on antibiotics she still has pus draining from around her J-tube site. She is able to tolerate oral intake and may need to consider adding Ensure or boost twice daily with her meals and if her infection
does not resolve may need to remove the J-tube and drain the abscess subcutaneous around the tube.
-She also has history of gastroparesis.
Subjective
Subjective
Date of Service: May 27, 2025
She had a dark bowel movement yesterday and another small bowel movement today. Hemoglobin stable post 1 unit of packed red blood cells then went up from 6.9-8.6
Still has a small amount of pus around the J-tube
Afebrile on antibiotics
Objective
Data Reviewed
Laboratory Data:
Laboratory Results
05/27/25 08:38
05/27/25 08:38
Laboratory Results
PT 14.7 Sec (11.4-14.6) H 05/18/25 03:26
INR 1.10 05/18/25 03:26
APTT 30.1 Sec (23.4-35.0) 05/17/25 23:54
Phosphorus 4.4 mg/dl (2.5-4.5) 05/26/25 07:06
Magnesium 2.1 mg/dl (1.6-2.3) 05/26/25 07:06
Total Bilirubin < 0.1 mg/dl (0.2-1.3) L 05/22/25 09:08
AST 14 U/L (14-36) 05/22/25 09:08
ALT 26 U/L (0-35) 05/22/25 09:08
Alkaline Phosphatase 104 U/L (38-126) 05/22/25 09:08
Lipase 179 U/L (23-300) 05/17/25 19:45
Vital Signs and I&O:
Vital Signs
Temp Pulse Resp BP Pulse Ox
97.4 F 69 16 124/62 95
05/27/25 07:20 05/27/25 09:44 05/27/25 07:20 05/27/25 09:44 05/27/25 07:20
I&O
05/26/25 05/27/25 05/28/25
06:59 06:59 06:59
Intake Total 550 / 550
Balance 550 / 550
Physical Exam
Physical Exam
Cardiology: Normal Sinus Rhythm
Pulmonary: Clear
GI: Soft, Non Distended, Non Tender, Normal Bowel Sounds and Other (Pus around the J-tube noted)
[2025-05-27] MEDS: HEPARIN SC (12:21)
[2025-05-27] MEDS: ASPIR LOW (ENTERIC COATED) PO (12:21)
[2025-05-27] MEDS: VITAMIN B-12 PO (12:21)
[2025-05-27] MEDS: ENTRESTO 24 MG/26 MG 1 TAB PO ×2 (12:47→21:19)
[2025-05-27 15:15] VITALS: BP 106/51
[2025-05-27 23:40] VITALS: BP 100/59
--- NOTE | 2025-05-28 01:29 | PTCARENOTE ---
Around 2229 last night, the PCT alerted this RN that after she changed the pt and got an another RN to pull the pt up in bed, she found the J tube out and immediately fell on the floor. The pt states that she did not touch it or tried to pull it. TF
on standby, dressing around the J tube site with a large amount of purulent drainage. Dressing changed, MANAGER OF SUSTAINABILITY made aware. Will continue to monitor the pt.
[2025-05-28] MEDS: TYLENOL ORAL SOLUTION 650 MG PO ×2 (03:04→21:10)
[2025-05-28] MEDS: PROTONIX 100 IV ×2 (04:47→14:41)
[2025-05-28 06:00] VITALS: BMI 15.8
--- NOTE | 2025-05-28 06:56 | W.PN.UPDATE ---
Update Note
Progress Note Update
Jtube dislodged and nocturnal feedings held.
[2025-05-28 06:59] LABS: Hematocrit 30.1 % (37.0-47.0); Hemoglobin 9.5 g/dL (12.0-16.0); Mean Corp Hgb Conc. 31.6 g/dL (33.0-37.0); Mean Corpuscular Volume 87.0 fL (81.0-99.0); Platelet Count 566 10^3/uL (130-400); Red Cell Dist. Width 25.0 % (11.5-14.5)
[2025-05-28 07:11] LABS: Blood Urea Nitrogen 31 mg/dl (7-17); Calcium 8.4 mg/dl (8.4-10.2); Carbon Dioxide 30 mmol/L (22-30); Chloride 99 mmol/L (98-107); Estimated Creatinine Clearance 47 ml/min; Glucose 77 mg/dl (70-99); Potassium 4.4 mmol/L (3.5-5.1); Sodium 133 mmol/L (135-145); eGFR > 60.00
--- NOTE | 2025-05-28 07:50 | PTCARENOTE ---
Dr. Zamora and Dr. Null made aware pt. Jtube was dislodged overnight per shift boss RN. No new orders at this time.
[2025-05-28 07:55] VITALS: BP 123/63
[2025-05-28] MEDS: OMNICEF 300 MG PO (08:39)
[2025-05-28] MEDS: ENTRESTO 24 MG/26 MG 1 TAB PO (08:40)
[2025-05-28] MEDS: CARAFATE SUSPENSION 1 GM PO ×4 (08:40→21:11)
[2025-05-28] MEDS: COREG 6.25 MG PO (08:40)
[2025-05-28] MEDS: LASIX 20 MG PO (08:40)
[2025-05-28] MEDS: VITAMIN D3 (cholecalciferol) 25 MCG PO (08:40)
--- NOTE | 2025-05-28 08:52 | W.PN.HOSP.TC ---
Addendum entered and electronically signed by Thomas Null MD 05/28/25 13:44:
Consult IR for drainage of subcutaneous abscess.
Original Note:
Today's Communication/Plan
-
see bold
Assessment / Plan
Assessment / Plan
HPI: 74 yo woman with hx PUD s/p partial gastretcomy and Billroth II anastomosis (1999), HFrEF (35-40% 05/24), recent diagnosis gastric cancer s/p J tube placement 05/02/25 presents to the ER from [facility] with report of abdominal pain and
diarrhea.
CT
IMPRESSION:
CT findings are most suspicious for an enteritis.
Loculated fluid collection in the subcutaneous anterior abdominal wall at midline adjacent to the percutaneous jejunal catheter. This could represent a seroma or an infected fluid collection. Few small locules of gas along the course of the catheter
deep to the anterior abdominal wall.
Septic Shock
Enteritis seen on CT
Loculated fluid collection near J-tube: seroma versus infected fluid collection, likely infected J-tube site, noted reports pustular appearance around J-site, J-tube fell out, replaced by Dr Jesse Brown
Diarrhea
Metabolic Acidosis
-Appreciate certified surgical assistant input, out of the ICU on 05/21, status post Levophed and vasopressin
-Consult surgical oncology Dr Jesse Brown appreciated dislodged J-tube replaced with red cath ok to use for tube feeds following 05/18/25 tube study confirming placement
-Stool studies, C. Diff Norvirus neg
-Blood cx's ngtd, wound cx pos for Klebsiella and Enterobacter, sensitivities appreciated both sensitive to Bactrim
-Metabolic Acidosis resolved, bicarb gtt completed
-Appreciate ID input, who recommends removal of J tube catheter
-Appreciate surgical oncology input, difficult situation, as Dr. Brown feels that patient may not be able to tolerate another ex lap for another feeding tube placement
-05/[address] scan shows improved collection, increased gas
-Cleared by SPL for reg diet/thin liquids, and supplemental noctural tube feeds
-MRSA screen neg, status post vancomycin/Zosyn, ID changed Rocephin to cefdinir solution through tube, plan for 4 weeks of treatment. F/u w/ ID in office in 4 weeks
-05/28 leukocytosis worsening, will change cefdinir back to Rocephin
-05/27 Jtube dislodged, Dr. Brown informed
Arthritis
-Patient self diagnosed with RA, months ago, d/t ulnar deviation hands, never formally evaluated by Home Aide
-S/p 5 days of prednisone 40 mg daily, ID would prefer pt be off of steroids for healing
-Recommend outpatient follow-up with rheumatology
Melena
Nodularity/ulceration at anastomotic site
Anemia of Chronic disease
Chronic Iron Deficiency Anemia
-Appreciate GI input, anemia/heme positive stools likely due to her anastomotic ulcer, which may be an underlying gastric cancer, path showed at least LGD from superficial biopsies
-Appreciate hematology input, s/p IV iron
-Transfuse 1 unit on 05/20 for Hgb 6.8, transfused a second unit on 05/26 for Hgb 6.9
-Hemoglobin 8.6 posttransfusion, continue to trend and transfuse as needed
-GI started Carafate, continue Protonix drip as per GI
HFrEF
-TTE 05/24 with EF 35-40%, follow up repeat ECHO
-Resumed Lasix w/ holding parameters
-Entresto resumed at reduced dose with holding parameters, titrate up to home dose as tolerated
-Home spironolactone remains on hold
-Home Coreg resumed with holding parameters
-daily weight I/O
Acute Hypoxia
-Resolved, continue incentive spirometer
Hyperkalemia
-S/p IV insulin/dextrose, bicarb, IVF, Calcium in the ER
-Held MACARONI PRESS OPERATOR Spironolactone and Entresto (Entresto since resumed as above)
-Resolved
Recent diagnosis of possible gastric cancer per biopsy report
-S/p ex-lap without finding of metastatic disease in abdomen and placement J-tube on 04/28/25
-Appreciate oncology input, biopsy shows low-grade dysplasia at anastomosis site, no definitive evidence of gastric cancer
Severe Protein Calorie Malnutrition due to Chronic Illness and Gastroparesis S/p feeding Jejunostomy on 04/28/2025
-Continue oral intake with nocturnal tube feeds when able
Goals of care
-05/27 Discussed with patient that she has multiple comorbidities that we do not have a cure for.
-Explained to her that she would likely go in and out of the hospital for one reason or another.
-Recommended that she discuss with her what her wishes are for the future regarding CODE STATUS, end-of-life care
PT/OT- rec SNF, she is from SNF
DVT PPx - SCDs due to melena & anemia
DNR
Updated 05/28
Total time spent to see the patient on the floor, examine the patient, review data and lab results, discuss treatment plan with patient, nursing staff around 52 minutes.
Physical Exam
General: Appears Chronically Ill (cachectic), no acute distress, appears comfortable at this time.
HEENT: PERRLA
Respiratory: Clear; No Wheezes
Cardiac: S1/S2 and Regular Rhythm; No JVD
GI: abd soft nontender bowel sounds noted J-tube site noted
Musculoskeletal:ulnar deviation hands
[place] dependent edema of elbow is noted
Skin: Warm and Dry; No Rash
Neuro: AO x 3 conversant coherent
Psych: Calm
Anticipated Discharge: 24 - 48 hours
Subjective/Interval History
-
Date of Service: May 28, 2025
Patient's G-tube was dislodged last night. She reports having more energy and feeling better today. She complains of diffuse arthritic pain in her upper extremities. Denies abdominal pain. No fever, no vomiting.
Objective Data
-
Labs:
Laboratory Results
05/28/25
06:29
WBC 21.7 H
Hgb 9.5 L
Hct 30.1 L
Plt Count 566 H
Sodium 133 L
Potassium 4.4
Chloride 99
Carbon Dioxide 30
BUN 31 H
Creatinine 0.7
Glucose 77
Calcium 8.4
Vital Signs:
Vital Signs
Temp Pulse Resp BP Pulse Ox
97.3 F 70 18 123/63 92
05/28/25 07:55 05/28/25 08:40 05/28/25 07:55 05/28/25 08:40 05/28/25 07:55
I&O
05/27/25 05/28/25 05/29/25
06:59 06:59 06:59
Intake Total 550 / 550 120 / 120
Balance 550 / 550 120 / 120
--- NOTE | 2025-05-28 15:38 | W.PN.GI.CBS2 ---
Today's Communication / Plan
-
continue antibiotics
Add protein supplements to her meals to add calories and increase weight
encourage small frequent meals
J-tube fell out and since she still has ongoing infection with pus draining may need IR drainage of abscess
Assessment / Plan
-
74yo female with distant hx partial gastrectomy/BII surgery. Recently had EGD/colonoscopy for eval of anemia. EGD 02/28/25 showed retained food, gastroparesis, and nodularity/ulceration at anastomosis. Bx showed low grade dysplasia. Pt referred to
Surgical Oncology Dr Brown due to suspicion for underlying malignancy. Given her cachexia and weight loss, plan was for feeding J tube placement prior to gastric resection. She had J tube placed 04/28 and started TF. Admitted 05/17/25 with abd pain
and purulent drainage from J tube site. CT shows possible enteritis and possible infected fluid collection along course of catheter. The patient was treated for septic shock and metabolic acidosis. Has improved. Initially was given 1 unit of
packed red blood cells with improvement of hemoglobin. She had negative stool studies. Treated for loculated fluid collection around J-tube. The J-tube fell out and was replaced by Dr. Brown. Continues on antibiotics dictated by ID for fluid
collection. Continues on aspirin 81 mg. Was given IV iron. Was on prednisone 40 mg daily for 'arthritis'. Asked to reevaluate patient as with melena. Patient had brown bowel movement documented 05/24. On 05/25 started having black stools.
Hemoglobin on 05/23 was 8.5 started decreasing and was 7.8 yesterday, 6.9 this morning. Resumed oral feeds and J-tube feeds (nocturnally).
02/28/25- EGD (Tracey): Esophageal mucosal changes suspicious for Catalan's esophagus. (Indefinite for dysplasia arising in a background of intestinal metaplasia and ulceration/inflammation), A medium amount of food (residue) in the stomach Removal was
successful - Billroth II gastrojejunostomy was found, characterized by nodularity, edema and ulceration-Granular, nodular and ulcerated mucosa at anastomosis.(Small intestinal mucosa with low-grade dysplasia, in a background of ulceration and
acutely inflamed granular tissue). Multiple gastric polyps. (Hyperplastic polyp with acutely inflamed granulation tissue and reactive changes, no evidence for dysplasia).
Impression:
Melena
->Nodularity/ulceration at anastomosis (gastrectomy/Billroth II), recent EGD with low-grade dysplasia 02/28/2025
Status post J-tube
Infected loculated fluid collection adjacent to jejunal cath
Gastroparesis
Barretts indefinite for dysplasia
Chronic anemia
Plan:
-Most likely bleeding from known anastomotic ulcer. Hemoglobin did improve after 1 unit of packed red blood cells 05/26 and has remained stable
-She did have dark stools but doubt active bleeding likely old blood since hemoglobin remained stable and BUN trending down, will hold on endoscopy unless she has active bleeding
-Eventual surgery for low-grade dysplasia from anastomotic ulcer with Dr. Brown
-She also has a history of Catalan's esophagus biopsies indefinite for dysplasia on endoscopy in February
-Also has a history of iron deficiency anemia and received iron infusions
-She also has history of gastroparesis.
-J-tube fell out last night and given that she still has infection with pus draining at the site would likely not replace for now, discussed with Dr. Brown he is aware that the tube fell out.
-Discussed with Dr. Null given leukocytosis back on IV antibiotics and also will place a consult to IR to see if the subcutaneous abscess can be drained
Subjective
Subjective
Date of Service: May 28, 2025
Her J-tube had fallen out around 10 PM last night, pus draining at the site, had black bowel movement last night but hemoglobin is stable posttransfusion, denies any abdominal pain currently
Objective
Data Reviewed
Laboratory Data:
Laboratory Results
05/28/25 06:29
05/28/25 06:29
Laboratory Results
PT 14.7 Sec (11.4-14.6) H 05/18/25 03:26
INR 1.10 05/18/25 03:26
APTT 30.1 Sec (23.4-35.0) 05/17/25 23:54
Phosphorus 4.4 mg/dl (2.5-4.5) 05/26/25 07:06
Magnesium 2.1 mg/dl (1.6-2.3) 05/26/25 07:06
Total Bilirubin < 0.1 mg/dl (0.2-1.3) L 05/22/25 09:08
AST 14 U/L (14-36) 05/22/25 09:08
ALT 26 U/L (0-35) 05/22/25 09:08
Alkaline Phosphatase 104 U/L (38-126) 05/22/25 09:08
Lipase 179 U/L (23-300) 05/17/25 19:45
Vital Signs and I&O:
Vital Signs
Temp Pulse Resp BP Pulse Ox
97.3 F 70 18 123/63 92
05/28/25 07:55 05/28/25 08:40 05/28/25 07:55 05/28/25 08:40 05/28/25 08:40
I&O
05/27/25 05/28/25 05/29/25
06:59 06:59 06:59
Intake Total 550 / 550 120 / 120
Balance 550 / 550 120 / 120
Physical Exam
Physical Exam
Cardiology: Normal Sinus Rhythm
Pulmonary: Clear
GI: Soft, Non Distended, Non Tender, Normal Bowel Sounds and Other ( pus noted at the site of the J-tube site, J-tube fell out last night)
[2025-05-28 15:57] VITALS: BP 93/53
[2025-05-28] MEDS: ENTRESTO 24 MG/26 MG PO (20:48)
[2025-05-28] MEDS: COREG PO (20:48)
[2025-05-28] MEDS: ROCEPHIN 1000 MG IV (21:06)
[2025-05-28] MEDS: STERILE WATER FOR INJECTION 10 ML IV (21:06)
[2025-05-28] MEDS: PROTONIX IV 40 MG IV (21:50)
[2025-05-28] MEDS: NSS (PRESERVATIVE FREE) 10 ML IV (21:50)
[2025-05-28 23:50] VITALS: BP 104/55
[2025-05-29] MEDS: TYLENOL ORAL SOLUTION 650 MG PO (04:26)
[2025-05-29 06:00] VITALS: BMI 15.4
[2025-05-29 07:30] VITALS: BP 105/71
--- NOTE | 2025-05-29 08:05 | W.PN.HOSP.TC ---
Today's Communication/Plan
-
cont abx as per ID
trend wbc
PT/OT
monitor H&H
discharge planning SNF rehab
Assessment / Plan
Assessment / Plan
Physical Exam
General: Appears Chronically Ill (cachectic), no acute distress, appears comfortable at this time.
HEENT: PERRLA
Respiratory: Clear; No Wheezes
Cardiac: S1/S2 and Regular Rhythm; No JVD
GI: abd soft nontender bowel sounds noted J-tube site noted
Musculoskeletal:ulnar deviation hands
[place] dependent edema of elbow is noted
Skin: Warm and Dry; No Rash
Neuro: AO x 3 conversant coherent
Psych: Calm
HPI: 74 yo woman with hx PUD s/p partial gastretcomy and Billroth II anastomosis (1999), HFrEF (35-40% 05/24), recent diagnosis gastric cancer s/p J tube placement 05/02/25 presents to the ER from [facility] with report of abdominal pain and
diarrhea.
CT
IMPRESSION:
CT findings are most suspicious for an enteritis.
Loculated fluid collection in the subcutaneous anterior abdominal wall at midline adjacent to the percutaneous jejunal catheter. This could represent a seroma or an infected fluid collection. Few small locules of gas along the course of the catheter
deep to the anterior abdominal wall.
Septic Shock
Enteritis seen on CT
Loculated fluid collection near J-tube: seroma versus infected fluid collection, likely infected J-tube site, noted reports pustular appearance around J-site, J-tube fell out, replaced by Dr Jesse Brown
Diarrhea
Metabolic Acidosis
-Appreciate traffic controller cable input, out of the ICU on 05/21, status post Levophed and vasopressin
-Consult surgical oncology Dr Jesse Brown appreciated dislodged J-tube replaced with red cath ok to use for tube feeds following 05/18/25 tube study confirming placement
-Stool studies, C. Diff Norvirus neg
-Blood cx's ngtd, wound cx pos for Klebsiella and Enterobacter, sensitivities appreciated both sensitive to Bactrim
-Metabolic Acidosis resolved, bicarb gtt completed
-Appreciate surgical oncology input, difficult situation, as Dr. Brown feels that patient may not be able to tolerate another ex lap for another feeding tube placement
-05/[address] scan shows improved collection, increased gas
-Cleared by SPL for reg diet/thin liquids
-MRSA screen neg, status post vancomycin/Zosyn, ID changed Rocephin to cefdinir plan for 4 weeks of treatment. F/u w/ ID in office in 4 weeks
-05/28 leukocytosis worsening, will change cefdinir back to Rocephin
-05/27 Jtube dislodged, Dr. Brown informed, no plans of replacing at this time, so far patient tolerating diet
-05/[address] notes no drainable fluid/abscess
Arthritis
-Patient self diagnosed with RA, months ago, d/t ulnar deviation hands, never formally evaluated by Digital Imager
-completed 5 days of prednisone 40 mg daily
-Recommend outpatient follow-up with rheumatology
Melena
Nodularity/ulceration at anastomotic site
Anemia of Chronic disease
Chronic Iron Deficiency Anemia
-Appreciate GI input, anemia/heme positive stools likely due to her anastomotic ulcer, which may be an underlying gastric cancer, path showed at least LGD from superficial biopsies
-Appreciate hematology input, s/p IV iron
-Transfuse 1 unit on 05/20 for Hgb 6.8, transfused a second unit on 05/26 for Hgb 6.9
-Hemoglobin 8.6 posttransfusion, continue to trend and transfuse as needed
-cont Carafate, PPI BID as per GI
HFrEF
-TTE 05/24 with EF 35-40%, follow up repeat ECHO
-Resumed Lasix w/ holding parameters
-Entresto resumed at reduced dose with holding parameters, titrate up to home dose as tolerated
-Home spironolactone remains on hold
-Home Coreg resumed with holding parameters
-daily weight I/O
Acute Hypoxia
-Resolved, continue incentive spirometer
Hyperkalemia
-S/p IV insulin/dextrose, bicarb, IVF, Calcium in the ER
-Held CARDIAC NURSE Spironolactone and Entresto (Entresto since resumed as above)
-Resolved
Recent diagnosis of possible gastric cancer per biopsy report
-S/p ex-lap without finding of metastatic disease in abdomen and placement J-tube on 04/28/25
-Appreciate oncology input, biopsy shows low-grade dysplasia at anastomosis site, no definitive evidence of gastric cancer
Severe Protein Calorie Malnutrition due to Chronic Illness and Gastroparesis
-Tolerating oral intake, regular diet, Ensure supplementation
PT/OT- rec SNF, she is from SNF
DVT PPx - SCDs due to melena & anemia
DNR
Discussed with patient and patient's Wes
Total time spent to see the patient on the floor, examine the patient, review data and lab results, discuss treatment plan with patient, nursing staff around 45 minutes.
Anticipated Discharge: 24 - 48 hours
Subjective/Interval History
-
Date of Service: May 29, 2025
Seen and examined at bedside in no acute distress sitting up comfortably in chair, tolerating diet. Wes present during evaluation.
Objective Data
-
Labs:
Laboratory Results
05/29/25
06:00
WBC Pending
Hgb Pending
Hct Pending
Plt Count Pending
Sodium Pending
Potassium Pending
Chloride Pending
Carbon Dioxide Pending
BUN Pending
Creatinine Pending
Glucose Pending
Calcium Pending
Vital Signs:
Vital Signs
Temp Pulse Resp BP Pulse Ox
98.2 F 79 16 104/55 93
05/28/25 23:50 05/28/25 23:50 05/28/25 23:50 05/28/25 23:50 05/28/25 23:50
I&O
05/28/25 05/29/25 05/30/25
06:59 06:59 06:59
Intake Total 120 / 120 580 / 580
Balance 120 / 120 580 / 580
[2025-05-29] MEDS: NSS (PRESERVATIVE FREE) 10 ML IV ×2 (08:34→19:59)
[2025-05-29] MEDS: PROTONIX IV 40 MG IV ×2 (08:34→19:59)
[2025-05-29] MEDS: CARAFATE SUSPENSION 1 GM PO ×4 (08:34→21:39)
[2025-05-29] MEDS: LASIX 20 MG PO (08:35)
[2025-05-29] MEDS: ENTRESTO 24 MG/26 MG PO ×2 (08:35→20:08)
[2025-05-29] MEDS: COREG 6.25 MG PO (08:35)
[2025-05-29] MEDS: VITAMIN D3 (cholecalciferol) 25 MCG PO (08:35)
[2025-05-29 09:04] LABS: Hematocrit 30.9 % (37.0-47.0); Hemoglobin 9.7 g/dL (12.0-16.0); Mean Corp Hgb Conc. 31.4 g/dL (33.0-37.0); Mean Corpuscular Volume 90.6 fL (81.0-99.0); Platelet Count 568 10^3/uL (130-400); Red Cell Dist. Width 26.0 % (11.5-14.5)
--- NOTE | 2025-05-29 09:51 | W.PN.ID1 ---
Date of Service
Date of Service: May 29, 2025
Today's Communication
tube removed inadvertently and no plans to replace it
continue cefdinir by mouth
Assessment / Plan
Catheter Infection
Gastroparesis
Gastric ulcer with low grade dysplasia
- J tube fell out yesterday early AM
- notified Dr Jesse Brown, placing surgeon, who confirmed there is no plan to try to replace it at this point. the goal will be to heal the wound and then reevaluate
- IR evaluation of abscess was requested however the area is likely too small for a drain to be placed, it is still draining through the previous surgical site.
- c/w cefdinir transition to by mouth, continue to plan 4 weeks of treatment 05/17-06/13; suspect that infection may resolve now that nidus for ongoing infection has been removed
- follow up in ID clinic in about 4 weeks
Chief Complaint
-: Other (catheter infection)
Subjective / Review of Systems
Jtube fell out thursday evening and was not replaced
repeat CT scan showed collection is now 3.8 x 2.0 x 0.6 cm in craniocaudal, transverse, and AP dimensions.
Vital Signs / Physical Exam
Vital Signs
Vital Signs
Temp Pulse Resp BP Pulse Ox
97.6 F 74 18 105/71 97
05/29/25 07:30 05/29/25 08:35 05/29/25 07:30 05/29/25 08:35 05/29/25 07:30
Physical Exam
Constitutional: No Acute Distress
Cardiovascular: Regular Rate and S1/S2; Negative Murmur or Rub
Pulmonary: Clear and Symmetric; Negative Wheezes or Rales
Gastrointestinal: Soft, Non Tender, Non Distended and Normal Bowel Sounds
Skin: Warm and Dry; Negative Rash or Jaundice
Objective Data
Lab Data
Lab Results
05/29/25 08:31
PT 14.7 Sec (11.4-14.6) H 05/18/25 03:26
INR 1.10 05/18/25 03:26
APTT 30.1 Sec (23.4-35.0) 05/17/25 23:54
Estimated Creat Clear Cancelled 05/29/25 08:31
Lactic Acid 1.4 mmol/L (0.7-2.0) 05/18/25 12:23
Total Bilirubin < 0.1 mg/dl (0.2-1.3) L 05/22/25 09:08
AST 14 U/L (14-36) 05/22/25 09:08
ALT 26 U/L (0-35) 05/22/25 09:08
Alkaline Phosphatase 104 U/L (38-126) 05/22/25 09:08
Most recent labs reviewed.
Micro Results:
05/17/25 20:46 Blood Culture - Final
Blood/Venous No Growth - Final Report
05/17/25 20:46 Blood Culture - Final
Blood/Venous No Growth - Final Report
05/17/25 20:46 Salmonella/Shigella Culture - Final
Feces/Stool No Salmonella, Shigella, Aeromonas or Plesiomonas species
isolated.
Campylobacter Culture - Final
No Campylobacter species isolated.
Shiga Toxin Test - Final
No E. coli Shiga Toxin 1 or 2 detected.
05/17/25 23:54 Wound Culture - Final
Abdomen Klebsiella pneumoniae
Enterobacter cloacae
Gram Stain - Final
05/18/25 03:25 Urine Culture - Final
Urine No Significant Growth
05/18/25 03:25 MRSA Screen - Final
Nose No Methicillin Resistant Staphylococcus aureus isolated.
05/17/25 20:46 Cryptosporidium/Giardia - Final
Feces/Stool Negative for Cryptosporidium and/or Giardia Lamblia
antigens.
C. difficile GDH Antigen & Toxins - Final
Negative for toxigenic C.difficile
05/17/25 20:46 - Final
Feces/Stool Negative for Norovirus GI and GII.
[2025-05-29 12:41] LABS: Blood Urea Nitrogen 30 mg/dl (7-17); Calcium 8.6 mg/dl (8.4-10.2); Carbon Dioxide 29 mmol/L (22-30); Chloride 101 mmol/L (98-107); Estimated Creatinine Clearance 46 ml/min; Glucose 84 mg/dl (70-99); Magnesium 2.2 mg/dl (1.6-2.3); Potassium 4.3 mmol/L (3.5-5.1); Sodium 134 mmol/L (135-145); eGFR > 60.00
[2025-05-29] MEDS: OMNICEF 300 MG PO ×2 (13:45→20:00)
--- NOTE | 2025-05-29 14:30 | W.PN.GI.CBS2 ---
Today's Communication / Plan
-
Continue antibiotics
IR consult to see if abscess can be drained
OP GI f/u
Assessment / Plan
-
74yo female with distant hx partial gastrectomy/BII surgery. Recently had EGD/colonoscopy for eval of anemia. EGD 02/28/25 showed retained food, gastroparesis, and nodularity/ulceration at anastomosis. Bx showed low grade dysplasia. Pt referred to
Surgical Oncology Dr Brown due to suspicion for underlying malignancy. Given her cachexia and weight loss, plan was for feeding J tube placement prior to gastric resection. She had J tube placed 04/28 and started TF. Admitted 05/17/25 with abd pain
and purulent drainage from J tube site. CT shows possible enteritis and possible infected fluid collection along course of catheter. The patient was treated for septic shock and metabolic acidosis. Since admission The J-tube fell out and was
replaced by Dr. Brown with red rubber catheter and then fell out again 05/28. Continues on antibiotics dictated by ID for fluid collection. Continues on aspirin 81 mg. Was given IV iron and 2 units PRBC's since admission. Was on prednisone 40 mg
daily for 'arthritis'. Asked to reevaluate patient as with melena. Patient had brown bowel movement documented 05/24. On 05/25 started having black stools. Hemoglobin on 05/23 was 8.5 then down to 9/6 on 05/26.
02/28/25- EGD ([facility]): Esophageal mucosal changes suspicious for Catalan's esophagus. (Indefinite for dysplasia arising in a background of intestinal metaplasia and ulceration/inflammation), A medium amount of food (residue) in the stomach Removal was
successful - Billroth II gastrojejunostomy was found, characterized by nodularity, edema and ulceration-Granular, nodular and ulcerated mucosa at anastomosis.(Small intestinal mucosa with low-grade dysplasia, in a background of ulceration and
acutely inflamed granular tissue). Multiple gastric polyps. (Hyperplastic polyp with acutely inflamed granulation tissue and reactive changes, no evidence for dysplasia).
CT A/p
1. Small 3.8 cm left periumbilical collection of fluid and air in the subcutaneous fat of the anterior abdominal wall.
2. Severe distention of the proximal stomach.
3. Previous Billroth II gastrojejunostomy with acute enteritis and ulceration of the proximal jejunal loops (probably causing a partial obstruction or delayed gastric emptying).
4. Mild to moderate biliary dilatation.
5. Severe calcific atherosclerotic plaque in the abdominal aorta and common iliac arteries.
6. Severe diverticulosis in the sigmoid colon.
7. Moderate chronic bilateral renal disease.
8. Small volume pelvic ascites.
9. Severe multilevel lumbar discogenic degenerative disease.
Impression:
Melena
->Nodularity/ulceration at anastomosis (gastrectomy/Billroth II), recent EGD with low-grade dysplasia 02/28/2025
Status post J-tube with accidental removal 05/18 with placement of red rubber catheter then displacement again on 05/28
Infected loculated fluid collection adjacent to jejunal cath
Gastroparesis
Barretts indefinite for dysplasia
Chronic anemia
Plan:
-Most likely bleeding from known anastomotic ulcer. Hemoglobin did improve after 1 unit of packed red blood cells 05/26 and has remained stable
-She did have dark stools but doubt active bleeding, likely old blood since hemoglobin remained stable and BUN trending down, will hold on endoscopy unless she has active bleeding
-Eventual surgery for low-grade dysplasia from anastomotic ulcer with Dr. Brown
-She also has a history of Catalan's esophagus biopsies indefinite for dysplasia on endoscopy in February
-Also has a history of iron deficiency anemia and received iron infusions
-She also has history of gastroparesis.
-J-tube fell out Thursday night and given that she still has infection with pus draining at the site would likely not replace for now, discussed with Dr. Brown he is aware that the tube fell out.
-consult to IR to see if the subcutaneous abscess can be drained
- GI will s/o and will be available as needed.
- F/u with DR. Tracey in office
Subjective
Subjective
Date of Service: May 29, 2025
WBC count slowly trending down,
Afebrile.
She is tolerating oral diet along with Ensure supplements
Hemoglobin stable
Objective
Data Reviewed
Laboratory Data:
Laboratory Results
05/29/25 08:31
05/29/25 12:21
Laboratory Results
PT 14.7 Sec (11.4-14.6) H 05/18/25 03:26
INR 1.10 05/18/25 03:26
APTT 30.1 Sec (23.4-35.0) 05/17/25 23:54
Phosphorus 4.0 mg/dl (2.5-4.5) 05/29/25 12:21
Magnesium 2.2 mg/dl (1.6-2.3) 05/29/25 12:21
Total Bilirubin < 0.1 mg/dl (0.2-1.3) L 05/22/25 09:08
AST 14 U/L (14-36) 05/22/25 09:08
ALT 26 U/L (0-35) 05/22/25 09:08
Alkaline Phosphatase 104 U/L (38-126) 05/22/25 09:08
Lipase 179 U/L (23-300) 05/17/25 19:45
Vital Signs and I&O:
Vital Signs
Temp Pulse Resp BP Pulse Ox
97.6 F 74 18 105/71 97
05/29/25 07:30 05/29/25 08:35 05/29/25 07:30 05/29/25 08:35 05/29/25 10:24
I&O
05/28/25 05/29/25 05/30/25
06:59 06:59 06:59
Intake Total 120 / 120 580 / 580
Balance 120 / 120 580 / 580
Physical Exam
Physical Exam
Cardiology: Normal Sinus Rhythm
Pulmonary: Clear
GI: Soft, Non Distended, Non Tender, Normal Bowel Sounds and Other (Small amount of pus at the prior J tube site)
[2025-05-29 15:15] VITALS: BP 139/77; PULSE 77; PULSE 78; O2SAT 95
--- NOTE | 2025-05-29 15:24 | CM ---
Chart reviewed. Care ongoing
IR consulted to see if abscess can be drained
Cont abx
J tube removed inadvertently and no plans to replace it at this time
Plan: SNF when medically stable
[2025-05-29 15:42] VITALS: BP 126/76
[2025-05-29] MEDS: COREG PO (20:08)
[2025-05-29 23:58] VITALS: BP 111/58
[2025-05-30] MEDS: TYLENOL ORAL SOLUTION 650 MG PO ×2 (00:47→09:56)
[2025-05-30 05:59] VITALS: BMI 15.2
[2025-05-30 07:00] VITALS: BP 115/61
--- NOTE | 2025-05-30 07:40 | W.PN.HOSP.TC ---
Today's Communication/Plan
-
cont abx
PT/OT
Monitor H&H
Likely discharge SNF rehab tomorrow if remains stable/cont to improve
Assessment / Plan
Assessment / Plan
Physical Exam
General: Appears Chronically Ill (cachectic), no acute distress, appears comfortable at this time.
HEENT: PERRLA
Respiratory: Clear; No Wheezes
Cardiac: S1/S2 and Regular Rhythm; No JVD
GI: abd soft nontender bowel sounds noted
Musculoskeletal:ulnar deviation hands
Skin: Warm and Dry; No Rash
Neuro: AO x 3 conversant coherent
Psych: Calm
HPI: 74 yo woman with hx PUD s/p partial gastretcomy and Billroth II anastomosis (1999), HFrEF (35-40% 05/24), recent diagnosis gastric cancer s/p J tube placement 05/02/25 presents to the ER from [facility] [facility] with report of abdominal pain and
diarrhea.
CT
IMPRESSION:
CT findings are most suspicious for an enteritis.
Loculated fluid collection in the subcutaneous anterior abdominal wall at midline adjacent to the percutaneous jejunal catheter. This could represent a seroma or an infected fluid collection. Few small locules of gas along the course of the catheter
deep to the anterior abdominal wall.
Septic Shock
Enteritis seen on CT
Loculated fluid collection near J-tube: seroma versus infected fluid collection, likely infected J-tube site, noted reports pustular appearance around J-site, J-tube fell out, replaced by Dr Jesse Brown
Diarrhea
Metabolic Acidosis
-Appreciate cranberry bog supervisor input, out of the ICU on 05/21, status post Levophed and vasopressin
-Consult surgical oncology Dr Jesse Brown appreciated dislodged J-tube replaced with red cath ok to use for tube feeds following 05/18/25 tube study confirming placement
-Stool studies, C. Diff Norvirus neg
-Blood cx's ngtd, wound cx pos for Klebsiella and Enterobacter, sensitivities appreciated both sensitive to Bactrim
-Metabolic Acidosis resolved, bicarb gtt completed
-Appreciate surgical oncology input, difficult situation, as Dr. Brown feels that patient may not be able to tolerate another ex lap for another feeding tube placement
-05/[address] scan shows improved collection, increased gas
-Cleared by SPL for reg diet/thin liquids
-MRSA screen neg, status post vancomycin/Zosyn, ID changed Rocephin to cefdinir plan for 4 weeks of treatment. F/u w/ ID in office in 4 weeks
-05/28 leukocytosis worsening, briefly was changed back to Rocephin, resumed cefdinir with continued clinical improvement and trending down wbc
-05/27 Jtube dislodged, Dr. Brown informed, no plans of replacing at this time, so far patient tolerating diet
-05/[address] notes no drainable fluid/abscess
Arthritis
-Patient self diagnosed with RA, months ago, d/t ulnar deviation hands, never formally evaluated by Digital Solutions Architect
-completed 5 days of prednisone 40 mg daily
-Recommend outpatient follow-up with rheumatology
Melena
Nodularity/ulceration at anastomotic site
Anemia of Chronic disease
Chronic Iron Deficiency Anemia
-Appreciate GI input, anemia/heme positive stools likely due to her anastomotic ulcer, which may be an underlying gastric cancer, path showed at least LGD from superficial biopsies
-Appreciate hematology input, s/p IV iron
-Transfuse 1 unit on 05/20 for Hgb 6.8, transfused a second unit on 05/26 for Hgb 6.9
-Hemoglobin 8.6 posttransfusion, continue to trend and transfuse as needed
-cont Carafate, PPI BID as per GI
HFrEF
-TTE 05/24 with EF 35-40%, follow up repeat ECHO
-Resumed Lasix w/ holding parameters
-Entresto resumed at reduced dose with holding parameters, titrate up to home dose as tolerated
-Home spironolactone remains on hold
-Home Coreg resumed with holding parameters
-daily weight I/O
Acute Hypoxia
-Resolved, continue incentive spirometer
Hyperkalemia
-S/p IV insulin/dextrose, bicarb, IVF, Calcium in the ER
-Held BOTTLE TESTER Spironolactone and Entresto (Entresto since resumed as above)
-Resolved
Recent diagnosis of possible gastric cancer per biopsy report
-S/p ex-lap without finding of metastatic disease in abdomen and placement J-tube on 04/28/25
-Appreciate oncology input, biopsy shows low-grade dysplasia at anastomosis site, no definitive evidence of gastric cancer
Severe Protein Calorie Malnutrition due to Chronic Illness and Gastroparesis
-Tolerating oral intake, regular diet, Ensure supplementation
PT/OT- rec SNF, she is from SNF
DVT PPx - SCDs due to melena & anemia
DNR
Discussed with patient and patient's Wes
Total time spent to see the patient on the floor, examine the patient, review data and lab results, discuss treatment plan with patient, nursing staff around 40 minutes.
Anticipated Discharge: Within 24 hours
Subjective/Interval History
-
Date of Service: May 30, 2025
No acute distress, sitting up comfortably in bed. Denies new acute issues at this time. Tolerating diet
Objective Data
-
Labs:
Laboratory Results
05/30/25
06:00
WBC Pending
Hgb Pending
Hct Pending
Plt Count Pending
Sodium Pending
Potassium Pending
Chloride Pending
Carbon Dioxide Pending
BUN Pending
Creatinine Pending
Glucose Pending
Calcium Pending
Vital Signs:
Vital Signs
Temp Pulse Resp BP Pulse Ox
98.4 F 87 20 111/58 93
05/29/25 23:58 05/29/25 23:58 05/29/25 23:58 05/29/25 23:58 05/29/25 23:58
I&O
05/29/25 05/30/25 05/31/25
06:59 06:59 06:59
Intake Total 580 / 580 840 / 840
Balance 580 / 580 840 / 840
[2025-05-30] MEDS: CARAFATE SUSPENSION 1 GM PO ×4 (08:13→21:03)
[2025-05-30 09:16] LABS: Hematocrit 28.2 % (37.0-47.0); Hemoglobin 8.8 g/dL (12.0-16.0); Mean Corp Hgb Conc. 31.2 g/dL (33.0-37.0); Mean Corpuscular Volume 92.2 fL (81.0-99.0); Nucleated Red Blood Cells % 0.1 %; Platelet Count 538 10^3/uL (130-400); Red Cell Dist. Width 25.5 % (11.5-14.5)
[2025-05-30] MEDS: PROTONIX IV 40 MG IV ×2 (09:29→20:19)
[2025-05-30] MEDS: NSS (PRESERVATIVE FREE) 10 ML IV ×2 (09:30→20:18)
[2025-05-30] MEDS: VITAMIN D3 (cholecalciferol) 25 MCG PO (09:36)
[2025-05-30] MEDS: OMNICEF 300 MG PO ×2 (09:36→20:19)
[2025-05-30] MEDS: LASIX 20 MG PO (09:37)
[2025-05-30] MEDS: COREG 6.25 MG PO (09:37)
[2025-05-30] MEDS: FLUSH (NSS) 1 FLUSH IV (09:38)
[2025-05-30 09:39] LABS: Blood Urea Nitrogen 39 mg/dl (7-17); Calcium 8.4 mg/dl (8.4-10.2); Carbon Dioxide 30 mmol/L (22-30); Chloride 101 mmol/L (98-107); Estimated Creatinine Clearance 40 ml/min; Glucose 94 mg/dl (70-99); Magnesium 2.3 mg/dl (1.6-2.3); Potassium 4.2 mmol/L (3.5-5.1); Sodium 136 mmol/L (135-145); eGFR > 60.00
[2025-05-30] MEDS: ENTRESTO 24 MG/26 MG 1 TAB PO ×2 (09:55→20:24)
--- NOTE | 2025-05-30 10:53 | W.PN.ID1 ---
Date of Service
Date of Service: May 30, 2025
Today's Communication
- c/w cefdinir plan 4 weeks of treatment 05/17-06/13; infection already seems to be better resolving now that nidus for ongoing infection has been removed. The fistula has closed there was minimal purulent drainage on the dressing, the abdominal
wall remains midly tender no erythema
Assessment / Plan
Catheter Infection
Gastroparesis
Gastric ulcer with low grade dysplasia
- catheter fell out and was not replaced, may assist with wound healing
- IR evaluated and not much fluid visible - mostly air, too small for drain irregardless
- c/w cefdinir plan 4 weeks of treatment 05/17-06/13; infection already seems to be better resolving now that nidus for ongoing infection has been removed. The fistula has closed there was minimal purulent drainage on the dressing, the abdominal
wall remains midly tender no erythema
- follow up in ID clinic PRN, they prefer to call if needed.
Chief Complaint
-: Other (catheter infection)
Subjective / Review of Systems
afebrile
bp stable
leukocytosis improving
Vital Signs / Physical Exam
Vital Signs
Vital Signs
Temp Pulse Resp BP Pulse Ox
97.2 F 64 15 115/61 95
05/30/25 07:00 05/30/25 09:37 05/30/25 07:00 05/30/25 09:55 05/30/25 07:00
Physical Exam
Constitutional: No Acute Distress
Cardiovascular: Regular Rate and S1/S2; Negative Murmur or Rub
Pulmonary: Clear and Symmetric; Negative Wheezes or Rales
Gastrointestinal: Soft, Non Tender, Non Distended, Normal Bowel Sounds and Other (The fistula has closed there was minimal purulent drainage on the dressing, the abdominal wall remains midly tender no erythema)
Skin: Warm and Dry; Negative Rash or Jaundice
Objective Data
Lab Data
Lab Results
05/30/25 07:55
05/30/25 07:55
PT 14.7 Sec (11.4-14.6) H 05/18/25 03:26
INR 1.10 05/18/25 03:26
APTT 30.1 Sec (23.4-35.0) 05/17/25 23:54
Estimated Creat Clear 40 ml/min 05/30/25 07:55
Lactic Acid 1.4 mmol/L (0.7-2.0) 05/18/25 12:23
Total Bilirubin < 0.1 mg/dl (0.2-1.3) L 05/22/25 09:08
AST 14 U/L (14-36) 05/22/25 09:08
ALT 26 U/L (0-35) 05/22/25 09:08
Alkaline Phosphatase 104 U/L (38-126) 05/22/25 09:08
Most recent labs reviewed.
Micro Results:
05/17/25 20:46 Blood Culture - Final
Blood/Venous No Growth - Final Report
05/17/25 20:46 Blood Culture - Final
Blood/Venous No Growth - Final Report
05/17/25 20:46 Salmonella/Shigella Culture - Final
Feces/Stool No Salmonella, Shigella, Aeromonas or Plesiomonas species
isolated.
Campylobacter Culture - Final
No Campylobacter species isolated.
Shiga Toxin Test - Final
No E. coli Shiga Toxin 1 or 2 detected.
05/17/25 23:54 Wound Culture - Final
Abdomen Klebsiella pneumoniae
Enterobacter cloacae
Gram Stain - Final
05/18/25 03:25 Urine Culture - Final
Urine No Significant Growth
05/18/25 03:25 MRSA Screen - Final
Nose No Methicillin Resistant Staphylococcus aureus isolated.
05/17/25 20:46 Cryptosporidium/Giardia - Final
Feces/Stool Negative for Cryptosporidium and/or Giardia Lamblia
antigens.
C. difficile GDH Antigen & Toxins - Final
Negative for toxigenic C.difficile
05/17/25 20:46 - Final
Feces/Stool Negative for Norovirus GI and GII.
[2025-05-30 11:00] VITALS: BP 131/75
[2025-05-30 13:10] VITALS: BP 95/51
[2025-05-30 15:00] VITALS: BP 110/54
[2025-05-30] MEDS: TYLENOL 650 MG PO ×2 (16:32→20:32)
[2025-05-30] MEDS: COREG PO (20:23)
[2025-05-30 23:55] VITALS: BP 112/60
[2025-05-31 05:23] VITALS: BMI 15.4
[2025-05-31 07:40] VITALS: BP 101/63
--- NOTE | 2025-05-31 07:50 | W.PN.HOSP.TC ---
Today's Communication/Plan
-
Medically stable for discharge SNF rehab pending insurance auth placement
Assessment / Plan
Assessment / Plan
Physical Exam
General: Appears Chronically Ill (cachectic), no acute distress, appears comfortable at this time.
HEENT: PERRLA
Respiratory: Clear; No Wheezes
Cardiac: S1/S2 and Regular Rhythm; No JVD
GI: abd soft nontender bowel sounds noted
Musculoskeletal:ulnar deviation hands
Skin: Warm and Dry; No Rash
Neuro: AO x 3 conversant coherent
Psych: Calm
HPI: 74 yo woman with hx PUD s/p partial gastretcomy and Billroth II anastomosis (1999), HFrEF (35-40% 05/24), recent diagnosis gastric cancer s/p J tube placement 05/02/25 presents to the ER from [facility] with report of abdominal pain and
diarrhea.
CT
IMPRESSION:
CT findings are most suspicious for an enteritis.
Loculated fluid collection in the subcutaneous anterior abdominal wall at midline adjacent to the percutaneous jejunal catheter. This could represent a seroma or an infected fluid collection. Few small locules of gas along the course of the catheter
deep to the anterior abdominal wall.
Septic Shock
Enteritis seen on CT
Loculated fluid collection near J-tube: seroma versus infected fluid collection, likely infected J-tube site, noted reports pustular appearance around J-site, J-tube fell out, replaced by Dr Jesse Brown
Diarrhea
Metabolic Acidosis
-Appreciate turkey picker input, out of the ICU on 05/21, status post Levophed and vasopressin
-Consult surgical oncology Dr Jesse Brown appreciated dislodged J-tube replaced with red cath ok to use for tube feeds following 05/18/25 tube study confirming placement
-Stool studies, C. Diff Norvirus neg
-Blood cx's ngtd, wound cx pos for Klebsiella and Enterobacter, sensitivities appreciated both sensitive to Bactrim
-Metabolic Acidosis resolved, bicarb gtt completed
-Appreciate surgical oncology input, difficult situation, as Dr. Brown feels that patient may not be able to tolerate another ex lap for another feeding tube placement
-05/[address] scan shows improved collection, increased gas
-Cleared by SPL for reg diet/thin liquids
-MRSA screen neg, status post vancomycin/Zosyn, ID changed Rocephin to cefdinir plan for 4 weeks of treatment. F/u w/ ID in office in 4 weeks
-05/28 leukocytosis worsening, briefly was changed back to Rocephin, resumed cefdinir with continued clinical improvement and trending down wbc
-05/27 Jtube dislodged, Dr. Brown informed, no plans of replacing at this time, so far patient tolerating diet
-05/[address] notes no drainable fluid/abscess
Arthritis
-Patient self diagnosed with RA, months ago, d/t ulnar deviation hands, never formally evaluated by Program Strategist
-completed 5 days of prednisone 40 mg daily
-Recommend outpatient follow-up with rheumatology
Melena
Nodularity/ulceration at anastomotic site
Anemia of Chronic disease
Chronic Iron Deficiency Anemia
-Appreciate GI input, anemia/heme positive stools likely due to her anastomotic ulcer, which may be an underlying gastric cancer, path showed at least LGD from superficial biopsies
-Appreciate hematology input, s/p IV iron
-Transfuse 1 unit on 05/20 for Hgb 6.8, transfused a second unit on 05/26 for Hgb 6.9
-Hemoglobin 8.6 posttransfusion, continue to trend and transfuse as needed
-cont Carafate, PPI BID as per GI
HFrEF
-TTE 05/24 with EF 35-40%, follow up repeat ECHO
-Resumed Lasix w/ holding parameters
-Entresto resumed at reduced dose with holding parameters, titrate up to home dose as tolerated
-Home spironolactone remains on hold
-Home Coreg resumed with holding parameters
-daily weight I/O
Acute Hypoxia
-Resolved, continue incentive spirometer
Hyperkalemia
-S/p IV insulin/dextrose, bicarb, IVF, Calcium in the ER
-Held LAB TESTER Spironolactone and Entresto (Entresto since resumed as above)
-Resolved
Recent diagnosis of possible gastric cancer per biopsy report
-S/p ex-lap without finding of metastatic disease in abdomen and placement J-tube on 04/28/25
-Appreciate oncology input, biopsy shows low-grade dysplasia at anastomosis site, no definitive evidence of gastric cancer
Severe Protein Calorie Malnutrition due to Chronic Illness and Gastroparesis
-Tolerating oral intake, regular diet, Ensure supplementation
PT/OT- rec SNF, she is from SNF
DVT PPx - SCDs due to melena & anemia
DNR
Medically stable for discharge SNF rehab pending insurance auth placement
Discussed with patient and patient's Wes
Total time spent to see the patient on the floor, examine the patient, review data and lab results, discuss treatment plan with patient, nursing staff around 35 minutes.
Anticipated Discharge: Within 24 hours
Subjective/Interval History
-
Date of Service: May 31, 2025
no acute distress, overall reports feeling well. Denies new acute issues at this time.
Objective Data
-
Labs:
Laboratory Results
05/31/25
06:00
Hgb Pending
Hct Pending
Vital Signs:
Vital Signs
Temp Pulse Resp BP Pulse Ox
97.2 F 64 17 112/60 96
05/30/25 23:55 05/30/25 23:55 05/30/25 23:55 05/30/25 23:55 05/30/25 23:55
I&O
05/30/25 05/31/25 06/01/25
06:59 06:59 06:59
Intake Total 840 / 840 240 / 240
Balance 840 / 840 240 / 240
[2025-05-31 08:46] LABS: Hematocrit 28.2 % (37.0-47.0); Hemoglobin 8.7 g/dL (12.0-16.0)
[2025-05-31] MEDS: CARAFATE SUSPENSION 1 GM PO ×4 (09:22→20:59)
[2025-05-31] MEDS: LASIX 20 MG PO (09:52)
[2025-05-31] MEDS: COREG 6.25 MG PO ×2 (09:52→20:58)
[2025-05-31] MEDS: ENTRESTO 24 MG/26 MG PO (09:52)
[2025-05-31] MEDS: NSS (PRESERVATIVE FREE) 10 ML IV ×2 (09:53→20:59)
[2025-05-31] MEDS: VITAMIN D3 (cholecalciferol) 25 MCG PO (09:53)
[2025-05-31] MEDS: PROTONIX IV 40 MG IV ×2 (09:53→20:59)
[2025-05-31] MEDS: FLUSH (NSS) 2 FLUSH IV (09:53)
[2025-05-31] MEDS: OMNICEF 300 MG PO ×2 (09:53→20:58)
[2025-05-31] MEDS: TYLENOL 650 MG PO ×2 (09:55→20:58)
--- NOTE | 2025-05-31 11:54 | CM ---
Addendum entered by Kim Blanton 05/31/25 16:18:
Patient has been approved for [facility] Auth [id number], 06/01 to 06/05 D 06/05/25 follow up to [phone] Opt 5
Acute care ambulance Auth [id number]
Addendum entered by Kim Blanton 05/31/25 14:14:
Patient has been accepted at [facility] and they will have a bed for patient tomorrow, patient needs COVID test completed, physician is aware.
Original Note:
Chart reviewed and case operator met with patient and spouse at bedside and reviewed skilled options and patient has selected [facility] in [place] as first choice and [facility] as 2nd choice, referrals sent to both facilities, waiting on
determination, will need Auth from insurance.
Plan; Skilled placement
--- NOTE | 2025-05-31 13:51 | W.PN.ID1 ---
Date of Service
Date of Service: May 31, 2025
Today's Communication
- c/w cefdinir for two weeks post catheter removal through 06/13
- follow up in ID clinic PRN, they prefer to call if needed.
Assessment / Plan
Catheter Infection
Gastroparesis
Gastric ulcer with low grade dysplasia
- c/w cefdinir for two weeks post catheter removal through 06/13
- follow up in ID clinic PRN, they prefer to call if needed.
Chief Complaint
-: Other (catheter infection)
Subjective / Review of Systems
afebrile
bp stable
tolerating current therapies
Vital Signs / Physical Exam
Vital Signs
Vital Signs
Temp Pulse Resp BP Pulse Ox
97.5 F 60 18 101/63 94
05/31/25 07:40 05/31/25 09:52 05/31/25 07:40 05/31/25 09:52 05/31/25 07:40
Physical Exam
Constitutional: No Acute Distress
Cardiovascular: Regular Rate and S1/S2; Negative Murmur or Rub
Pulmonary: Clear and Symmetric; Negative Wheezes or Rales
Gastrointestinal: Soft, Non Tender, Non Distended and Normal Bowel Sounds
Skin: Warm and Dry; Negative Rash or Jaundice
Physical Exam:
no drainage on previous catheter site dressing, fistulae healed
Objective Data
Lab Data
Lab Results
05/31/25 08:21
05/30/25 07:55
PT 14.7 Sec (11.4-14.6) H 05/18/25 03:26
INR 1.10 05/18/25 03:26
APTT 30.1 Sec (23.4-35.0) 05/17/25 23:54
Estimated Creat Clear 40 ml/min 05/30/25 07:55
Lactic Acid 1.4 mmol/L (0.7-2.0) 05/18/25 12:23
Total Bilirubin < 0.1 mg/dl (0.2-1.3) L 05/22/25 09:08
AST 14 U/L (14-36) 05/22/25 09:08
ALT 26 U/L (0-35) 05/22/25 09:08
Alkaline Phosphatase 104 U/L (38-126) 05/22/25 09:08
Most recent labs reviewed.
Micro Results:
05/17/25 20:46 Blood Culture - Final
Blood/Venous No Growth - Final Report
05/17/25 20:46 Blood Culture - Final
Blood/Venous No Growth - Final Report
05/17/25 20:46 Salmonella/Shigella Culture - Final
Feces/Stool No Salmonella, Shigella, Aeromonas or Plesiomonas species
isolated.
Campylobacter Culture - Final
No Campylobacter species isolated.
Shiga Toxin Test - Final
No E. coli Shiga Toxin 1 or 2 detected.
05/17/25 23:54 Wound Culture - Final
Abdomen Klebsiella pneumoniae
Enterobacter cloacae
Gram Stain - Final
05/18/25 03:25 Urine Culture - Final
Urine No Significant Growth
05/18/25 03:25 MRSA Screen - Final
Nose No Methicillin Resistant Staphylococcus aureus isolated.
05/17/25 20:46 Cryptosporidium/Giardia - Final
Feces/Stool Negative for Cryptosporidium and/or Giardia Lamblia
antigens.
C. difficile GDH Antigen & Toxins - Final
Negative for toxigenic C.difficile
05/17/25 20:46 - Final
Feces/Stool Negative for Norovirus GI and GII.
[2025-05-31 13:55] VITALS: BP 133/68; PULSE 66; O2SAT 97
[2025-05-31 15:20] VITALS: BP 133/68; PULSE 66; O2SAT 97
[2025-05-31 15:30] VITALS: BP 102/58
[2025-05-31] MEDS: ENTRESTO 24 MG/26 MG 1 TAB PO (20:58)
[2025-05-31 23:46] VITALS: BP 129/66
[2025-06-01] MEDS: TYLENOL 650 MG PO (04:42)
[2025-06-01 06:00] VITALS: BMI 15.3
[2025-06-01 06:56] LABS: COVID-19 Antigen Negative (Negative)
--- NOTE | 2025-06-01 07:26 | W.PN.HOSP.TC ---
Today's Communication/Plan
-
discharge
Assessment / Plan
Assessment / Plan
Physical Exam
General: Appears Chronically Ill (cachectic), no acute distress, appears comfortable at this time.
HEENT: PERRLA
Respiratory: Clear; No Wheezes
Cardiac: S1/S2 and Regular Rhythm; No JVD
GI: abd soft nontender bowel sounds noted
Musculoskeletal:ulnar deviation hands
Skin: Warm and Dry; No Rash
Neuro: AO x 3 conversant coherent
Psych: Calm
HPI: 74 yo woman with hx PUD s/p partial gastretcomy and Billroth II anastomosis (1999), HFrEF (35-40% 05/24), recent diagnosis gastric cancer s/p J tube placement 05/02/25 [facility] with report of abdominal pain and
diarrhea.
CT
IMPRESSION:
CT findings are most suspicious for an enteritis.
Loculated fluid collection in the subcutaneous anterior abdominal wall at midline adjacent to the percutaneous jejunal catheter. This could represent a seroma or an infected fluid collection. Few small locules of gas along the course of the catheter
deep to the anterior abdominal wall.
Septic Shock
Enteritis seen on CT
Loculated fluid collection near J-tube: seroma versus infected fluid collection, likely infected J-tube site, noted reports pustular appearance around J-site, J-tube fell out, replaced by Dr Jesse Brown
Diarrhea
Metabolic Acidosis
-Appreciate site planner input, out of the ICU on 05/21, status post Levophed and vasopressin
-Consult surgical oncology Dr Jesse Brown appreciated dislodged J-tube replaced with red cath ok to use for tube feeds following 05/18/25 tube study confirming placement
-Stool studies, C. Diff Norvirus neg
-Blood cx's ngtd, wound cx pos for Klebsiella and Enterobacter, sensitivities appreciated both sensitive to Bactrim
-Metabolic Acidosis resolved, bicarb gtt completed
-Appreciate surgical oncology input, difficult situation, as Dr. Brown feels that patient may not be able to tolerate another ex lap for another feeding tube placement
-05/[address] scan shows improved collection, increased gas
-Cleared by SPL for reg diet/thin liquids
-MRSA screen neg, status post vancomycin/Zosyn, ID changed Rocephin to cefdinir plan for 4 weeks of treatment. F/u w/ ID in office in 4 weeks
-05/28 leukocytosis worsening, briefly was changed back to Rocephin, resumed cefdinir with continued clinical improvement and trending down wbc
-05/27 Jtube dislodged, Dr. Brown informed, no plans of replacing at this time, so far patient tolerating diet
-05/[address] notes no drainable fluid/abscess
-patient continues to improve
Arthritis
-Patient self diagnosed with RA, months ago, d/t ulnar deviation hands, never formally evaluated by [employer]
-completed 5 days of prednisone 40 mg daily
-Recommend outpatient follow-up with rheumatology
Melena
Nodularity/ulceration at anastomotic site
Anemia of Chronic disease
Chronic Iron Deficiency Anemia
-Appreciate GI input, anemia/heme positive stools likely due to her anastomotic ulcer, which may be an underlying gastric cancer, path showed at least LGD from superficial biopsies
-Appreciate hematology input, s/p IV iron
-Transfuse 1 unit on 05/20 for Hgb 6.8, transfused a second unit on 05/26 for Hgb 6.9
-Hemoglobin 8.6 posttransfusion, continue to trend and transfuse as needed
-cont Carafate, PPI BID as per GI
HFrEF
-TTE 05/24 with EF 35-40%, follow up repeat ECHO
-Resumed Lasix w/ holding parameters
-Entresto resumed at reduced dose with holding parameters, titrate up to home dose as tolerated
-Home spironolactone remains on hold
-Home Coreg resumed with holding parameters
-daily weight I/O
Acute Hypoxia
-Resolved, continue incentive spirometer
Hyperkalemia
-S/p IV insulin/dextrose, bicarb, IVF, Calcium in the ER
-Held [employer]INEERING TECH[employer]ICIAN Spironolactone and Entresto (Entresto since resumed as above)
-Resolved
Recent diagnosis of possible gastric cancer per biopsy report
-S/p ex-lap without finding of metastatic disease in abdomen and placement J-tube on 04/28/25
-Appreciate oncology input, biopsy shows low-grade dysplasia at anastomosis site, no definitive evidence of gastric cancer
Severe Protein Calorie Malnutrition due to Chronic Illness and Gastroparesis
-Tolerating oral intake, regular diet, Ensure supplementation
Essential Thrombocytosis
stable
Hematology eval appreciated, outpt follow up for potential restart hydroxyurea vs switch to alternative medication
PT/OT- SNF rehab
DVT PPx - SCDs due to melena & anemia
DNR
Medically stable for discharge SNF rehab with outpatient follow up recommendations
Discussed with patient and patient's Wes
Total Time Preparing Discharge _40 minutes including examination of the patient, summary of the hospital stay, instructions for continuing care to all relevant caregivers; and preparation of discharge records, prescriptions, and referral
forms if necessary.
Anticipated Discharge: Today
Subjective/Interval History
-
Date of Service: June 01, 2025
no acute distress, overall reports feeling well, denies new acute issues at this time. Looking forward to rehab.
Objective Data
-
Vital Signs:
Vital Signs
Temp Pulse Resp BP Pulse Ox
97.7 F 70 18 129/66 97
05/31/25 23:46 05/31/25 23:46 05/31/25 23:46 05/31/25 23:46 05/31/25 23:46
I&O
05/31/25 06/01/25 06/02/25
06:59 06:59 06:59
Intake Total 1450 / 1450 970 / 970
Balance 1450 / 1450 970 / 970
[2025-06-01 07:39] VITALS: BP 126/74
--- NOTE | 2025-06-01 09:35 | W.DCSUMMARY ---
Discharge Summary
Discharge Data
Date of Admission: 05/17/25
Date of Discharge: 06/01/25
-
Pending Results: No
Discharge Plan
-
Patient Disposition: Penitentiary/SNF
Discharge Diagnosis/Procedures: Septic Shock (resolved) secondary to Enteritis vs J-Tube wound site infection
Arthritis, suspected Rheumatoid
Nodularity/ulceration at anastomotic site GI
Anemia of Chronic disease
Chronic Iron Deficiency Anemia
Heart Failure with Reduced Ejection Fraction
Severe Protein Calorie Malnutrition due to Chronic Illness and Gastroparesis
Essential Thrombocytosis
Condition: Fair
Diet: Regular
Additional Diets: Ensure Enlive Chocolate supplement twice a day
Activity: With assistance, As tolerated and With Walker
Driving Restrictions: Not until seen by your Dr
Bathing Restrictions: None
Blood Work: repeat CBC with primary care provider in 1 week of discharge.
Check B12 level and lipid panel in 1 month of discharge with primary care provider
Other Services: PT and OT
Specialty Instructions: Weigh Daily- Call MD for wt gain/loss 3 lbs overnight/5 lbs in 1 week
Activity Restrictions/Additional Instructions:
Wound Care Instructions J-tube site- Clean around tube gently with Vashe, soap and water. Cover with drain sponges and secure with paper tape as tolerated. Change daily and PRN drainage.
Air mattress
Encourage frequent turning and repositioning
Keep heels off-loaded with pillows or air cushion under calves
Sacral Border foam to sacrum- change Q 72 hours and PRN
Continue Cefdinir 300 mg twice day through 06/13 to complete treatment infection.
Entresto dose was reduced due to low pressures and hyperkalemia
Aldactone was discontinued due to low pressures and hyperkalemia
Carafate was started for anemia likely secondary to GI ulcer
Statin was discontinued due to cachexia, lipid panel was also reviewed and medication is not indicated at this time.
Vit B12 was discontinued as medication is unnecessary at this time.
Referrals:
Ed Tracey MD [Active, Gastroenterology] - in two to four weeks
Carina Hernandez MD [Active, Hematology / Oncology] - in two to four weeks
Sohail Boudreaux MD [Active, Rheumatology] - in two to four weeks
Anitra Aguilera DO [Family Provider, Emergency] - in one week
Isrrael Caba MD [Active, Cardiology] - in two to four weeks
Jesse Brown MD [Active, Surgical] - in two to four weeks
Danita Campa MD [Active, Infectious Diseases]
Prescriptions:
New
sucralfate 100 mg/mL Suspension
1 g PO ACHS Qty: 1000 0RF
sacubitril-valsartan 24-26 mg Tablet
1 tab PO BID Qty: 60 0RF
cefdinir 300 mg Capsule
300 mg PO Q12 Qty: 25 0RF
Rx Instructions:
Continue through 06/13 then stop
Continued
pantoprazole 40 MG tablet,delayed release (DR/EC)
40 mg PO BID
aspirin 81 mg Tablet,Delayed Release (Dr/Ec)
81 mg PO DAILY
ferrous sulfate 142 mg (45 mg iron) Tablet Extended Release
142 mg PO Q48H
carvedilol 12.5 mg Tablet
6.25 mg PO BID
furosemide [Lasix] 20 mg Tablet
20 mg PO DAILY
cholecalciferol (vitamin D3) [Vitamin D3] 25 mcg (1,000 unit) Tablet
25 mcg PO DAILY
Discontinued
atorvastatin 20 mg tablet
20 mg PO DAILY
sacubitril-valsartan [Entresto] 97-103 mg Tablet
1 tab PO BID
spironolactone 25 mg Tablet
12.5 mg PO DAILY
cyanocobalamin (vitamin B-12) [Vitamin B-12] 1,000 mcg Tablet
1,000 mcg PO DAILY
Discharge Orders:
Discharge Patient (As Directed); Ordered 06/01/25
Ordered By: Kannan Lemos
Discharge Date and Time
Print Language: AUSTRALIAN
--- NOTE | 2025-06-01 10:13 | CM ---
Plan is for patient to d/c to [facility] today
Approved auth [id number], 06/01 to 06/05 LCD 06/05/25
Transport scheduled for 1 pm
Met patient bedside. IMM verbally reviewed, copy provided, copy on chart
[facility]
Report: [phone]

Plan: D/c to [facility] today
[2025-06-01] MEDS: CARAFATE SUSPENSION 1 GM PO ×2 (10:21→12:17)
[2025-06-01] MEDS: NSS (PRESERVATIVE FREE) 10 ML IV (10:21)
[2025-06-01] MEDS: ENTRESTO 24 MG/26 MG 1 TAB PO (10:21)
[2025-06-01] MEDS: PROTONIX IV 40 MG IV (10:21)
[2025-06-01] MEDS: LASIX 20 MG PO (10:22)
[2025-06-01] MEDS: COREG 6.25 MG PO (10:22)
[2025-06-01] MEDS: VITAMIN D3 (cholecalciferol) 25 MCG PO (10:22)
[2025-06-01] MEDS: OMNICEF 300 MG PO (10:22)
[2025-06-01] MEDS: FLUZONE HIGH-DOSE 2025-26 0.5 ML IM (10:27)
[2025-06-01 11:02] VITALS: BP 114/66
== END 2025-06-01 13:21 | DRG 393 ==
LOC: 4 EAST ACU 23:17
PROVIDERS: Family Medicine; Nurse Practitioner Adult Health; Nurse Practitioner Primary Care; Physician Assistant; ADMITTING PHYSICIAN Student in an Organized Health Care Education/Training Program; ATTENDING PHYSICIAN Internal Medicine; CONSULT PHYSICIAN Internal Medicine; CONSULT PHYSICIAN Specialist; EMERGENCY PHYSICIAN Emergency Medicine; FAMILY PHYSICIAN Emergency Medicine; OTHER PHYSICIAN Internal Medicine Hematology & Oncology; OTHER PHYSICIAN Student in an Organized Health Care Education/Training Program
PROC: B543ZZA Ultrasonography of Right Jugular Veins, Guidance (ICD-10-PCS; 2025-05-18)
PROC: 05HM33Z Insertion of Infusion Device into Right Internal Jugular Vein, Percutaneous Approach (ICD-10-PCS; 2025-05-18)
DX: K94.12 Enterostomy infection (principal); A41.9 Sepsis, unspecified organism; E43 Unspecified severe protein-calorie malnutrition; R65.21 Severe sepsis with septic shock; Z68.1 Body mass index [BMI] 19.9 or less, adult; I50.22 Chronic systolic (congestive) heart failure; R64 Cachexia; E87.20 Acidosis, unspecified; C16.9 Malignant neoplasm of stomach, unspecified; M06.9 Rheumatoid arthritis, unspecified; K52.9 Noninfective gastroenteritis and colitis, unspecified; D63.8 Anemia in other chronic diseases classified elsewhere; E87.5 Hyperkalemia; Z87.11 Personal history of peptic ulcer disease; K31.84 Gastroparesis; Z79.82 Long term (current) use of aspirin; Z79.899 Other long term (current) drug therapy; Z66 Do not resuscitate; D50.8 Other iron deficiency anemias; E78.00 Pure hypercholesterolemia, unspecified; D47.3 Essential (hemorrhagic) thrombocythemia; D75.839 Thrombocytosis, unspecified; F17.200 Nicotine dependence, unspecified, uncomplicated; G51.0 Bell's palsy; I11.0 Hypertensive heart disease with heart failure; I25.10 Atherosclerotic heart disease of native coronary artery without angina pectoris; I44.7 Left bundle-branch block, unspecified; K21.9 Gastro-esophageal reflux disease without esophagitis; Z86.0101 Personal history of adenomatous and serrated colon polyps; Z90.3 Acquired absence of stomach [part of]
CPT/HCPCS: 49465; 71045; 71046; 74150; 74177; 80048; 80053; 80061; 81003; 81015; 82607; 82728; 82746; 82805; 82962; 83540; 83550; 83605; 83690; 83735; 84100; 84132; 85014; 85018; 85025; 85027; 85610; 85730; 86850; 86900; 86901; 86920; 87040; 87045; 87046; 87070; 87077; 87086; 87186; 87205; 87324; 87328; 87329; 87427; 87449; 87798; 87811; 90662; 92610; 93005; 93306; 96361; 96374; 96375; 97116; 97163; 97167; 97530; 97535; 99291; G0008; J2916; P9016; Q9967

== ENCOUNTER 2025-06-07 18:13 | Inpatient (IN) | payer OTHER, SELFPAY ==
[2025-06-07] VITALS (7 sets, daily range): BP systolic 123–129; BP diastolic 59–67; BMI 15.6
--- NOTE | 2025-06-07 14:26 | ED.GENMED ---
History of Present Illness
<BEBETO Yepez - Last Filed: 06/09/25 07:49>
General
Chief Complaint: Catheter/Tube Problem
Source: patient, ambulance crew and [facility]
Exam Limitations: none
Time Seen by Provider: 06/07/25 13:23
Nursing documentation reviewed up to this point in time: agreed with
History of Present Illness
History of Present Illness:
Patient is a 74-year-old female with past medical history of partial gastrectomy Billroth II anastomosis for peptic ulcer disease, CHF, Catalan's esophagus gastroparesis sent from [facility] for evaluation. Patient was noted to have purulent
drainage from the surgical site. Patient was adm may 17 and discharge 06/01. Patient was admitted for septic shock related to enteritis versus G-tube wound site infection. Patient was discharged on cefdinir to be taken twice a day through May
14. On previous imaging there was small amount of loculated fluid in the subcutaneous anterior abdominal wall at the midline adjacent to the percutaneous jejunal catheter.
Patient denies any pain fever or chills.
Past History
<BEBETO Yepez - Last Filed: 06/09/25 07:49>
Past History
ED Past Medical History: CAD, GERD, HTN, Hypercholesterolemia and Other (Iron deficiency anemia, peptic ulcer disease)
ED Past Surgical History: Cholecystectomy and Other (Partial gastrectomy)
Social History
Tobacco: Smoker
Alcohol: None
Drug: None
Personal:
Living: with family
Phy Exam
<BEBETO Yepez - Last Filed: 06/09/25 07:49>
General Physical Exam
General Presentation: no apparent distress
General age: appears stated age
General Skin: warm and dry
General Habitus: elderly
General Mental: alert
General Hydration: appears well hydrated
Cardiovascular Exam
Cardiovascular Exam: regular rate/rhythm, no murmur and normal peripheral pulses
Course
<BEBETO Yepez - Last Filed: 06/09/25 07:49>
Orders/Labs/Results
Orders:
Orders
06/07/25 14:25
IV Insert/Care/Rem.- Treatment PRN
06/07/25 14:30
Complete Blood Count/With Diff Urgent
Blood Culture Q30M
[place] Source: Blood/Venous
Specimen Description:
Wound Culture [Wound/Abscess/Other Culture] Urgent
[place] Source: Abdomen
Specimen Description:
Date Specimen was Collected: 06/07/25
Time Specimen was Collected: 14:27
06/07/25 14:31
CT Abd/pelvis W Iv Cont Urgent
Comment:
Reason For Exam: eval for possible abscess
06/07/25 14:34
0.9% Sodium Chloride 500 ml [Nss] 500 ml IV BOLUS
06/07/25 14:50
Blood Culture Q30M
[place] Source: Blood/Venous
Specimen Description:
06/07/25 15:30
Comprehensive Metabolic Panel Urgent
06/07/25 16:14
Piperacillin/Tazo 3.375 Gram [Zosyn] 3.375 gram in 50 ml IV NOW
06/07/25 16:15
Electrocardiogram (*1) Stat
Reason for Study: Other
Other Reason for Exam: chest pain
EKG- Treatment ONCE
06/07/25 16:32
Vancomycin 1 Gram/200 ml [Vancocin] 1 gram in 200 ml IV NOW
06/07/25 17:34
Admit/Transfer Patient As Directed
Co-Sign Provider:
Level of Care: Inpatient admission
Assign to:: Medical/Surgical
Physician / Group: tracey osuna
Diagnosis: abd wall fluid collection/abscess drainage prior jtube site
Reason for Hospitalization: abd wall fluid collection/abscess drainage prior jtube site
Expected length of stay greater than two midnights?: Yes
ELOS- Estimated Length of Stay in days: 4
I certify the patient meets the requirements for IP care: Yes
Code Status As Directed
Resuscitation Status: Do not resuscitate
Reached after discussion with pt or family/Healthcare POA: Yes
Decision communicated with: per pt
06/07/25 17:35
DNR Bracelet Application ONCE
06/07/25 17:37
PRN Pain Medication Management As Directed
May give lesser potent ordered pain med per pt: Yes
preference::
Protocol:: Medication orders for pain may be administered in a
manner that supports deferring to patient preference
when the pt is:
- Requesting an ordered lesser potent pain medication.
Least to most potent pain medications are defined
as: acetaminophen < NSAID < tramadol < opioids
(morphine, oxycodone, hydromorphone).
- Requesting a lesser dose of the same medication IF
ORDERED.
- Requesting a less intrusive route of administration
if both routes are prescribed by the provider (PO <
IV).
06/07/25 21:02
Piperacillin/Tazo 2.25 Gram [Zosyn] 2.25 grams in 50 ml IV Q6H
VANCOMYCIN Pharmacy to Dose [VANCOCIN Pharmacy to Dose] 1 each Pharmacy To Prepare [Call Pharmacy To Prepare] 0 ml IV PER PROTOCOL
06/07/25 21:02
Activity As Directed
Activity Level: With Assistance
Intake/ Output As Directed
Frequency: Per unit guidelines
Pneumatic Compression Sleeves As Directed
Type: Knee high
Vital Signs As Directed
Frequency: Per unit guidelines
Weight As Directed
Frequency: Daily
Pt Eval And Treat Routine
Activity Level: As Tolerated
DX Deep Vein Thrombosis Video Routine
06/08/25 05:55
Complete Blood Count/With Diff IN AM
Comprehensive Metabolic Panel IN AM
Abnormal Lab Results
06/07/25 06/07/25
14:30 15:30
WBC 12.8 H 10^3/uL
(4.8-10.8)
RBC 3.33 L 10^6/uL
(4.20-5.40)
Hgb 8.9 L g/dL
(12.0-16.0)
Hct 29.8 L %
(37.0-47.0)
MCH 26.7 L pg
(27.0-31.0)
MCHC 29.9 L g/dL
(33.0-37.0)
RDW 22.2 H %
(11.5-14.5)
Plt Count 449 H 10^3/uL
(130-400)
Abs Immat Gran (auto) 0.1 H 10^3/uL
(0-0.05)
Absolute Neuts (auto) 10.6 H 10^3/uL
(1.4-6.5)
Absolute Lymphs (auto) 0.8 L 10^3/uL
(1.2-3.4)
Absolute Monos (auto) 1.1 H 10^3/uL
(0.1-0.6)
Neutrophils % 82.8 H %
(42.2-75.2)
Lymphocytes % 5.9 L %
(20.5-51.1)
BUN 20 H mg/dl
(7-17)
Creatinine 0.5 L mg/dL
(0.6-1.0)
Glucose 69 L mg/dl
(70-99)
Total Protein 6.1 L g/dl
(6.3-8.2)
Albumin 3.2 L g/dl
(3.5-5.0)
10/08/25 14:30
06/07/25 15:30
Vital Signs
Initial and Last Documented VS:
Initial Vital Signs
Temp Pulse Resp BP Pulse Ox
97.9 F 68 20 127/67 96
06/07/25 13:18 06/07/25 13:18 06/07/25 13:18 06/07/25 13:18 06/07/25 13:18
Last Documented Vital Signs
Temp Pulse Resp BP Pulse Ox
98.1 F 74 18 127/63 96
06/09/25 23:00 06/09/25 23:00 06/09/25 23:00 06/09/25 23:00 06/09/25 23:00
<Wes Ibarra MD - Last Filed: 06/10/25 08:46>
Orders/Labs/Results
Orders:
Orders
06/07/25 14:25
IV Insert/Care/Rem.- Treatment PRN
06/07/25 14:30
Complete Blood Count/With Diff Urgent
Blood Culture Q30M
[place] Source: Blood/Venous
Specimen Description:
Wound Culture [Wound/Abscess/Other Culture] Urgent
[place] Source: Abdomen
Specimen Description:
Date Specimen was Collected: 06/07/25
Time Specimen was Collected: 14:27
06/07/25 14:31
CT Abd/pelvis W Iv Cont Urgent
Comment:
Reason For Exam: eval for possible abscess
06/07/25 14:34
0.9% Sodium Chloride 500 ml [Nss] 500 ml IV BOLUS
06/07/25 14:50
Blood Culture Q30M
[place] Source: Blood/Venous
Specimen Description:
06/07/25 15:30
Comprehensive Metabolic Panel Urgent
06/07/25 16:14
Piperacillin/Tazo 3.375 Gram [Zosyn] 3.375 gram in 50 ml IV NOW
06/07/25 16:15
Electrocardiogram (*1) Stat
Reason for Study: Other
Other Reason for Exam: chest pain
EKG- Treatment ONCE
06/07/25 16:32
Vancomycin 1 Gram/200 ml [Vancocin] 1 gram in 200 ml IV NOW
06/07/25 17:34
Admit/Transfer Patient As Directed
Co-Sign Provider:
Level of Care: Inpatient admission
Assign to:: Medical/Surgical
Physician / Group: tracey osuna
Diagnosis: abd wall fluid collection/abscess drainage prior jtube site
Reason for Hospitalization: abd wall fluid collection/abscess drainage prior jtube site
Expected length of stay greater than two midnights?: Yes
ELOS- Estimated Length of Stay in days: 4
I certify the patient meets the requirements for IP care: Yes
Code Status As Directed
Resuscitation Status: Do not resuscitate
Reached after discussion with pt or family/Healthcare POA: Yes
Decision communicated with: per pt
06/07/25 17:35
DNR Bracelet Application ONCE
06/07/25 17:37
PRN Pain Medication Management As Directed
May give lesser potent ordered pain med per pt: Yes
preference::
Protocol:: Medication orders for pain may be administered in a
manner that supports deferring to patient preference
when the pt is:
- Requesting an ordered lesser potent pain medication.
Least to most potent pain medications are defined
as: acetaminophen < NSAID < tramadol < opioids
(morphine, oxycodone, hydromorphone).
- Requesting a lesser dose of the same medication IF
ORDERED.
- Requesting a less intrusive route of administration
if both routes are prescribed by the provider (PO <
IV).
06/07/25 21:02
Piperacillin/Tazo 2.25 Gram [Zosyn] 2.25 grams in 50 ml IV Q6H
VANCOMYCIN Pharmacy to Dose [VANCOCIN Pharmacy to Dose] 1 each Pharmacy To Prepare [Call Pharmacy To Prepare] 0 ml IV PER PROTOCOL
06/07/25 21:02
Activity As Directed
Activity Level: With Assistance
Intake/ Output As Directed
Frequency: Per unit guidelines
Pneumatic Compression Sleeves As Directed
Type: Knee high
Vital Signs As Directed
Frequency: Per unit guidelines
Weight As Directed
Frequency: Daily
Pt Eval And Treat Routine
Activity Level: As Tolerated
DX Deep Vein Thrombosis Video Routine
06/08/25 05:55
Complete Blood Count/With Diff IN AM
Comprehensive Metabolic Panel IN AM
Abnormal Lab Results
06/07/25 06/07/25
14:30 15:30
WBC 12.8 H 10^3/uL
(4.8-10.8)
RBC 3.33 L 10^6/uL
(4.20-5.40)
Hgb 8.9 L g/dL
(12.0-16.0)
Hct 29.8 L %
(37.0-47.0)
MCH 26.7 L pg
(27.0-31.0)
MCHC 29.9 L g/dL
(33.0-37.0)
RDW 22.2 H %
(11.5-14.5)
Plt Count 449 H 10^3/uL
(130-400)
Abs Immat Gran (auto) 0.1 H 10^3/uL
(0-0.05)
Absolute Neuts (auto) 10.6 H 10^3/uL
(1.4-6.5)
Absolute Lymphs (auto) 0.8 L 10^3/uL
(1.2-3.4)
Absolute Monos (auto) 1.1 H 10^3/uL
(0.1-0.6)
Neutrophils % 82.8 H %
(42.2-75.2)
Lymphocytes % 5.9 L %
(20.5-51.1)
BUN 20 H mg/dl
(7-17)
Creatinine 0.5 L mg/dL
(0.6-1.0)
Glucose 69 L mg/dl
(70-99)
Total Protein 6.1 L g/dl
(6.3-8.2)
Albumin 3.2 L g/dl
(3.5-5.0)
06/07/25 14:30
06/07/25 15:30
Vital Signs
Initial and Last Documented VS:
Initial Vital Signs
Temp Pulse Resp BP Pulse Ox
97.9 F 68 20 127/67 96
06/07/25 13:18 06/07/25 13:18 06/07/25 13:18 06/07/25 13:18 06/07/25 13:18
Last Documented Vital Signs
Temp Pulse Resp BP Pulse Ox
98.1 F 74 18 127/63 96
06/09/25 23:00 06/09/25 23:00 06/09/25 23:00 06/09/25 23:00 06/09/25 23:00
<BEBETO Yepez - Last Filed: 06/09/25 07:49>
MDM/Problems Addressed
Differential Diagnosis Includes:
Not limited to abscess cellulitis
MDM/Problems Addressed:
Patient is a 74-year female who presents with purulent drainage through previous incisional site of her abdomen. This was noted at the [facility]. On exam she has an indurated red area of her abdomen with significant purulent drainage. This
was cultured. She denies any fever chills she is nontoxic. She is afebrile with a white count minimally elevated 12.8 hemoglobin is 8.[address] ordered. Antibx ordered .she will need admission.
Chronic conditions affecting care:
Recent infection/septic shock, gastrectomy Ma; absorption syndrome CHF CAD hypertension
<BEBETO Yepez - Last Filed: 06/09/25 07:49>
*Radiology
Radiology exam reviewed: radiology read reviewed
*Pulse Oximetry
SaO2: 96
Oxygen Mode of Delivery: Room air
Patient hypoxic: no
*Critical Care Note
Total Time (30-74mins, 75-104mins- exclusive of procedures): Not Applicable
ED Attending Note
<BEBETO Yepez - Last Filed: 06/09/25 07:49>
-
Portions of this chart may have been created with voice recognition software.� Occasional wrong word or��sound alike� substitutions may have occurred due to the inherent limitations of voice recognition software.
<Wes Ibarra MD - Last Filed: 06/10/25 08:46>
ED Attending Note
Patient seen and examined by attending physician: Yes
I performed the substantive portion of visit, reviewed & personally made and approve the management plan that is documented in note by myself or ARINA.: Yes
ED Attending Note:
Patient presents with drainage pain and swelling at a previous J-tube site. Had been admitted previously for an ongoing issue. Denies fever or chills.
On exam patient is nontoxic. Chronically ill-appearing she has a large amount of purulent drainage from the J-tube site on the left of the umbilicus. There is surrounding erythema and induration. Fairly large area approximately 15 cm x 10 cm.
Abdomen is nontender otherwise. Warm and dry. Perfusing well.
Previous records and tests reviewed. Recent septic shock from this intra-abdominal infection. Surgery and IR consulted for drainage. Antibiotics started. Referred for admission.
Discharge Plan
Departure
Patient Disposition: Admit
Date of Disposition: 06/07/25
Time of Disposition: 16:47
Admit to: Med/Surg
Admit to doctor: hospitalist
Presentation/result/management discussed w/ accepting MD/DO: Hospitalist
Patient with high blood pressure during this ER visit?: Yes
Condition: Fair
Covid-19: Not Applicable
Discharge Problem:
Abscess
Interventions
Interventions:
*Risk Screen - Suicide Last Done: 06/07/25 22:30
*General Assessment Last Done: 06/07/25 13:18
*Neglect/Abuse Screening Last Done: 06/07/25 13:18
*ED- Fall Risk Assessment Last Done: 06/07/25 13:18
*ED COVID-19 Vaccine History Last Done: 06/07/25 22:30
*Nursing Disposition Last Done: 06/07/25 22:00
JN-Djpesd-Ubnydexqoz Assessment Last Done: 06/07/25 13:18
Discharge Date and Time
Discharge Date/Time: 06/07/25 22:00
[2025-06-07 15:13] LABS: Hematocrit 29.8 % (37.0-47.0); Hemoglobin 8.9 g/dL (12.0-16.0); Mean Corp Hgb Conc. 29.9 g/dL (33.0-37.0); Mean Corpuscular Volume 89.5 fL (81.0-99.0); Nucleated Red Blood Cells % 0 %; Platelet Count 449 10^3/uL (130-400); Red Cell Dist. Width 22.2 % (11.5-14.5)
[2025-06-07] MEDS: NSS 500 IV (15:36)
[2025-06-07 15:59] LABS: ALT (SGPT) 15 U/L (0-35); AST (SGOT) 19 U/L (14-36); Albumin 3.2 g/dl (3.5-5.0); Alkaline Phosphatase 95 U/L (38-126); Blood Urea Nitrogen 20 mg/dl (7-17); Calcium 9.0 mg/dl (8.4-10.2); Carbon Dioxide 29 mmol/L (22-30); Chloride 102 mmol/L (98-107); Estimated Creatinine Clearance 55 ml/min; Glucose 69 mg/dl (70-99); Potassium 4.6 mmol/L (3.5-5.1); Sodium 136 mmol/L (135-145); Total Protein 6.1 g/dl (6.3-8.2); eGFR > 60.00
[2025-06-07] MEDS: ZOSYN 50 IV ×2 (16:19→22:32)
[2025-06-07 16:29] LABS: Glucose - Point of Care 76 mg/dl (70-99)
[2025-06-07] MEDS: VANCOCIN 200 IV (16:45)
--- NOTE | 2025-06-07 17:07 | HPS.HSE ---
Addendum entered and electronically signed by Stephie Kemp MD 06/07/25 18:45:
This is an addendum to H&P written by Machelle Guzmán on 06/07/2025. �Patient seen and examined independently with [facility] [facility].
74-year-old female past medical history of peptic ulcer disease status post partial gastrectomy and Billroth II anastomosis in 1999, anastomotic ulcer, chronic HFrEF, gastric cancer status post G-tube placement on 05/02, arthritis likely rheumatoid
arthritis, anemia of chronic disease, iron deficiency anemia, essential thrombocytosis, severe protein calorie malnutrition, presenting with purulent drainage from the J-tube site today.
Patient had J-tube placed for cachexia on 04/28. �Patient was recently admitted from 05/17 to 06/01 for septic shock secondary to enteritis requiring pressors. �Patient had loculated fluid collection in the subcutaneous anterior wall near her J-tube
possibly seroma versus infected fluid collection. �Patient had accidental removal of J-tube in 05/18 with placement of red rubber catheter then displacement again on 05/28. �She had wound culture at G-tube site which was positive for Klebsiella and
Enterobacter. �She was seen by Dr. Brown who felt that she would not tolerate another ex lap for another feeding tube placement. �Her hospital course was also complicated by melena and anemia thought to be secondary to anastomotic ulcer, showing
low-grade dysplasia. �She received 2 units of blood transfusion. �Carafate and Protonix were started.
Vital signs at this time normal.
Labs show leukocytosis 12.8. �Stable anemia of 8.9.
Prior CT scan from 05/29 showed 3.8 cm focal collection of fluid and air in the subcutaneous fat of the anterior abdominal wall. �Previous Billroth II gastrojejunostomy with acute enteritis and ulceration of the proximal jejunal loops.
Patient with purulent drainage likely from fluid collection present previously. �CT abdomen pelvis pending.
Wound culture pending. �Blood cultures pending. �Vancomycin/Zosyn.
Will consult IR for drainage of fluid collection. �ID consulted.
Original Note:
Family Physician
-
Family Physician: Todd Ryan MD
Chief Complaint
-
Drainage from prior J-tube site
History of Present Illness
74-year-old female from [facility] [place] home sent for purulent drainage from J-tube site where site of loculated fluid was in the subcutaneous anterior abdominal wall adjacent to the percutaneous jejunal catheter. She tells me she was in physical therapy
today when she bent and fluid came squirting out of her prior J-tube site. She denies fever, chills, abdominal pain, nausea, vomiting, diarrhea, chest pain, palpitations, cough, shortness of breath, urinary symptoms. She has been eating a regular
diet with Ensure twice daily and tolerating that she states.
She has a distant history of partial gastrectomy Billroth II gastrojejunostomy .She had EGD on 02/28/2025 showing retained food gastroparesis nodularity/ulceration at anastomosis with low-grade dysplasia she was referred to surg onc Dr. Brown due to
suspicion of underlying malignancy with cachexia and weight loss. She had J-tube placed for feeding on 04/28 started tube feeds. She was admitted on 05/17 with abdominal pain J-tube drainage CT showing possible enteritis along with septic shock
metabolic acidosis. Her J-tube fell out and was replaced by Dr. Brown with red rubber catheter that fell out again on 05/28. She was continued on antibiotics by ID for fluid collection and was to finish cefdinir 300 mg on 06/13 her catheter was to be
left out. During her admission on
05/17 - 06/01/2025 she was treated for for septic shock secondary to enteritis versus J-tube wound site infection where patient was to continue cefdinir 300 mg twice daily through 06/13,
Patient had J-tube placed 04/28 it fell out then had red rubber catheter placed 05/28 which fell out again.
Entresto dose was reduced due to hypotension hyperkalemia her Aldactone was discontinued. She started having black stools with hemoglobin trending down on 05/25 Carafate was started for anemia likely secondary to GI ulcer, she was also given IV
iron and 2 units of PRBCs. And her statin was DC'd due to cachexia.
Patient past medical history of partial gastrectomy Billroth II gastrojejunostomy, J-tube placement became infected adjacent to the jejunal cath J-tube fell out, ulceration of the proximal jejunum loops, gastroparesis, Catalan's esophagus, anemia
likely from ulceration at jejunum/iron deficiency requiring IV iron transfusions PRBC, GERD, PUD, HTN, CAD, HLD, active smoker
Medical History
Past Medical History
Past Medical History: Reports Other ( PUD s/p partial gastretcomy and Billroth II anastomosis (1999), recent diagnosis gastric cancer s/p J tube placement 05/02/25 )
Additional Past Medical History:
partial gastrectomy Billroth II gastrojejunostomy,
J-tube placement became infected adjacent to the jejunal cath J-tube fell out 05/17/2025
ulceration of the proximal jejunum loops 05/17/2025
anemia likely from ulceration at jejunum/iron deficiency requiring IV iron transfusions PRBC 05/17/2025 admission
gastroparesis
Catalan's esophagus
Essential thrombocytosis
GERD
PUD
HTN
CAD
HLD
Former smoker
Protein calorie malnutrition/cachexia
Chronic ambulatory dysfunction currently stands to transfer only
Past Surgical History: Reports Other (see above )
Social History
Tobacco: Former Smoker
Alcohol: None
Personal:
Living: With Family (But currently at [facility] rehab)
Employment: Retired
Family History
Family History: Not pertinent
Allergies / Home Medications
Allergies reflects when Allergies were last updated in [facility] [employer].
Home Medications with original date entered in [employer]
Allergy/Medication List:
Allergies
Allergy/AdvReac Type Severity Reaction Status Date / Time
No Known Allergies Allergy Verified 06/07/25 13:18
Home Medications
pantoprazole 40 mg tablet,delayed release 40 mg PO BID Gastrointestinal Issue 01/23/23
aspirin 81 mg tablet,delayed release 81 mg PO DAILY Heart Disease/Condition 10/08/23
ferrous sulfate 142 mg (45 mg iron) tablet,extended release 142 mg PO Q48H Supplement 10/08/23
carvedilol 12.5 mg tablet 6.25 mg PO BID Blood Pressure 11/01/24
furosemide 20 mg tablet (Lasix) 20 mg PO DAILY Heart Failure 11/01/24
cholecalciferol (vitamin D3) 25 mcg (1,000 unit) tablet (Vitamin D3) 25 mcg PO DAILY Supplement 04/20/25
sacubitril 24 mg-valsartan 26 mg tablet 1 tab PO BID #60 tabs 06/01/25
acetaminophen 325 mg tablet (Tylenol) 650 mg PO Q6HPRN PRN mild pain 06/07/25
bisacodyl 10 mg rectal suppository (Dulcolax (bisacodyl)) 10 mg AR DAILYPRN PRN if no bm aftr mom 06/07/25
cefdinir 300 mg capsule 300 mg PO BID 06/07/25
magnesium hydroxide 400 mg/5 mL oral suspension (Milk of Magnesia) 2,400 mg PO Q22OLGH PRN constipation 06/07/25
sodium phosphates 19 gram-7 gram/118 mL enema (Fleet Enema) 118 ml AR DAILYPRN PRN if no bm aftr dulcolax 06/07/25
sucralfate 1 gram tablet (Carafate) 1 g PO ACHS 06/07/25
zinc oxide 20 % topical ointment 1 applic topical BID sacrum, b/l buttock 06/07/25
Review of Systems
-
History Source: Patient and Family ( at bedside)
A 12 point ROS was completed and negative except as noted: Yes
Constitutional: Reports Weight Gain; Denies Fatigue or Chills
EENT: Denies Sore Throat or Runny Nose
Respiratory: Denies Cough or Trouble Breathing
Cardiac: Denies Chest Pain, Diaphoresis or Palpitations
Abdomen/GI: Reports Abdominal Pain (Tenderness at prior jejunostomy site with slight surrounding erythema and earlier drainage); Denies Nausea, Vomiting, Diarrhea or Constipated
: Denies Dysuria, Frequency, Flank Pain or Incontinence
Musculoskeletal: Denies Joint Pain or Edema
Skin: Denies Itching or Rash
Neurological: Reports Weakness; Denies Dizzy or Headache
Endocrine: Reports No Symptoms
Hematologic/Lymphatic: Reports No Symptoms
Psych: Reports Calm
Physical Exam
Vital Signs
Vital Signs
Temp Pulse Resp BP Pulse Ox
97.9 F 65 22 129/65 96
06/07/25 13:18 06/07/25 14:45 06/07/25 14:45 06/07/25 14:00 06/07/25 16:09
Physical Exam
General: Cachectic; No Pain, Fever or Chills
HEENT: NormoCephalic, Anicteric, Moist mucous membranes, PERRLA, [place] Conjunctivae and No Ptosis
Respiratory: Clear; No Wheezes, Rales or Rhonchi
Cardiac: S1/S2 and Regular Rhythm; No Murmur, Rub, Gallop or Peripheral Edema
GI: Soft, Non Distended, Normal Bowel Sounds and Tender (Around prior jejunostomy site slight surrounding erythema, earlier drainage from J-tube site)
Rectal: Deferred by Provider
Genito-urinary: Deferred by me
Musculoskeletal: No Clubbing, No Cyanosis and No Edema
Skin: Warm and Dry; No Rash
Neuro: AO x 3, No Motor Deficits, Cranial Nerves Intact and No Sensory Deficits; No Slurred Speech, Facial Droop, Tremors or Sedated
Psych: Calm
Laboratory Results
-
06/07/25 14:30
06/07/25 15:30
Laboratory Results
Total Bilirubin 0.5 mg/dl (0.2-1.3) 06/07/25 15:30
AST 19 U/L (14-36) 06/07/25 15:30
ALT 15 U/L (0-35) 06/07/25 15:30
Alkaline Phosphatase 95 U/L (38-126) 06/07/25 15:30
Data Reviewed
-
CT Scan: Report Reviewed by me
Lab Data: Labs Reviewed by me
Impression/Plan
-
Impression/plan:
Admit to [facility]
#Purulent drainage from J-tube site due to Loculated fluid subcutaneous anterior intra-abdominal drainage
#Recent sick shock from jejunal catheter infection with fluid collection subcutaneous anterior intra-abdominal wall adjacent to jejunal cath
##Partial gastrectomy Billroth II gastrojejunostomy/ Had J-tube placed on 04/28/2025 due to cachexia, weight loss, gastroparesis, low-grade dysplasia and ulceration at anastomosis
*Jejunal cath fell out 05/17, rubber catheter fell out 05/28 and not replaced due to purulent drainage
Patient started cefdinir was to finish on 06/13/2025 due to wound culture showing Klebsiella pneumonia and Enterobacter cloacae On 05/17/2025
WBC 12.8 with left shift, afebrile 97.9, 129/65
-IV vancomycin, IV Zosyn
-IV NSS 500 cc
-Wound culture, blood cultures x 2
-Check CT scan abdomen pelvis
- Consult IR for drainage of loculated fluid collection adjacent to jejunum
- Consult infectious disease
- Follow CBC, CMP
#Severe protein calorie malnutrition due to chronic illness/gastroparesis
Had J-tube placed on 04/28/2025 due to cachexia, weight loss, gastroparesis, low-grade dysplasia and ulceration at anastomosis
Jejunum biopsy negative for cancer
Recent weight gain 43.1 kg> 41.8 kg on 06/01/2025
*Jejunal cath fell out 05/17, rubber catheter fell out 05/28 and not replaced due to purulent drainage
-Has been eating regular diet with Ensure twice daily
#Essential thrombocytosis history
Follows with [facility]
#Anemia secondary to GI ulceration proximal jejunum/iron deficiency
Anemia of chronic disease
#Iron deficiency anemia
-Recent iron IV transfusion/blood transfusion 05/17/2025 admission
Hgb stable 8.9 > 8.7 on 05/31/2025
-Continue ferrous sulfate 142 mg p.o. every 48 hours
#Recent GI ulceration proximal jejunum May 2025
#Catalan's esophagus/GERD
-Continue Carafate 1 g p.o. ACHS, Protonix 40 mg twice daily
#Heart failure reduced EF
#TTE 04/08/2024 with EF 35-40%
I/O, daily weights
-Continue Entresto recent reduced dose
#HTN
BP stable 126/66
-Continue carvedilol 6.25 mg p.o. twice daily with hold parameters
#HLD
Prior meds were DC'd
#CAD
#Arthritis
#Prior active smoker stopped recent admission
#Chronic ambulatory dysfunction due to protein calorie malnutrition deconditioning -BMI 15.6
Patient reports stands to transfer to wheelchair only
DVT prophylaxis
SCDs
DNR
--- NOTE | 2025-06-07 22:14 | PHA.VAN.IN ---
Assessment
- Assessment
Renal Function: Other
Concomitant Antimicrobials: PIPERACILLIN/TAZO
AUC Dosing Plan
- Dosing Variables
Dosing Weight (kg): 43
Dosing CrCl (ml/min): 55
Vd coefficient (L/kg): 0.7
- Empiric Dosing
Initial / Loading Dose: VANCO 1000 MG IV ~ 1700
Maintenance Regimen: 500 MG IV Q24H
Estimated AUC (mcg*h/mL): 340
Estimated Peak (mcg*h/mL): 23.8
Estimated Trough (mcg/ml): 7.5
Estimated Half Life (H): 13.8
- Monitoring
No levels ordered at this time: Consider level in next few days
Pharmacokinetics Vancomycin I
- -
Patient Age: 74
Patient Sex: Female
Vancomycin Day #: 1
Indication: Skin And Soft Tissue
Requesting Provider: Ramirez TATE
Height / Weight:
Height 5 ft 5.5 in
Actual Weight 43.1 kg
Pertinent Past Medical History: severe protein calorie malnutrition, presenting with purulent drainage
- Vital Signs / Lab Results
Temp Pulse Resp BP Pulse Ox
97.9 F 68 18 126/66 91
06/07/25 13:18 06/07/25 17:15 06/07/25 17:15 06/07/25 17:00 06/07/25 17:15
Lab Results - Hematology
06/07/25
14:30
WBC 12.8 H
Lab Results - Chemistry
06/07/25 06/07/25
14:30 15:30
BUN Cancelled 20 H
Creatinine Cancelled 0.5 L
Estimated Creat Clear Cancelled 55
Albumin Cancelled 3.2 L
--- NOTE | 2025-06-07 22:15 | PTCARENOTE ---
Pt is a 74-year-old female PMH of peptic ulcer disease status post partial gastrectomy and Billroth II anastomosis in 1999, anastomotic ulcer, chronic HFrEF, gastric cancer status post G-tube placement on 05/02, arthritis likely rheumatoid arthritis,
anemia of chronic disease, iron deficiency anemia, essential thrombocytosis, severe protein calorie malnutrition (cachexia), HTN, HLD, [place] Palsy, CAD, GERD. Pt presenting with purulent drainage from the J-tube site today. Pt AOx3, pt at bedside,
pt's DNR bracelet on, bed in lowest position, pt denies pain at this time.
[2025-06-08 00:23] VITALS: BP 108/62
[2025-06-08] MEDS: ZOSYN 50 IV (04:25)
[2025-06-08 06:00] VITALS: BMI 14.1
[2025-06-08 06:51] LABS: Hematocrit 31.3 % (37.0-47.0); Hemoglobin 9.1 g/dL (12.0-16.0); Mean Corp Hgb Conc. 29.1 g/dL (33.0-37.0); Mean Corpuscular Volume 92.6 fL (81.0-99.0); Nucleated Red Blood Cells % 0 %; Platelet Count 437 10^3/uL (130-400); Red Cell Dist. Width 22.3 % (11.5-14.5)
[2025-06-08 06:55] LABS: ALT (SGPT) 13 U/L (0-35); AST (SGOT) 13 U/L (14-36); Albumin 2.9 g/dl (3.5-5.0); Alkaline Phosphatase 100 U/L (38-126); Blood Urea Nitrogen 18 mg/dl (7-17); Calcium 9.0 mg/dl (8.4-10.2); Carbon Dioxide 27 mmol/L (22-30); Chloride 104 mmol/L (98-107); Estimated Creatinine Clearance 50 ml/min; Glucose 58 mg/dl (70-99); Potassium 3.9 mmol/L (3.5-5.1); Sodium 137 mmol/L (135-145); Total Protein 5.7 g/dl (6.3-8.2); eGFR > 60.00
[2025-06-08] MEDS: TYLENOL 650 MG PO ×3 (07:23→21:30)
[2025-06-08 07:25] VITALS: BP 136/65
[2025-06-08 07:39] LABS: Anisocytosis 1+; Hypochromasia 2+; Normal RBC Morphology No
[2025-06-08 07:40] LABS: Ovalocytes FEW; Polychromasia 1+; Target Cells FEW
[2025-06-08] MEDS: CARAFATE 1 GRAM PO ×4 (08:27→21:30)
[2025-06-08] MEDS: ENTRESTO 24 MG/26 MG 1 TAB PO ×2 (08:28→20:15)
[2025-06-08] MEDS: VITAMIN D3 (cholecalciferol) 25 MCG PO (08:29)
[2025-06-08] MEDS: COREG 6.25 MG PO ×2 (08:29→20:15)
[2025-06-08] MEDS: LASIX 20 MG PO (08:29)
[2025-06-08] MEDS: ASPIR LOW (ENTERIC COATED) 81 MG PO (08:29)
[2025-06-08] MEDS: PROTONIX 40 MG PO ×2 (08:30→20:15)
--- NOTE | 2025-06-08 09:09 | W.PN.HOSP.TC ---
Today's Communication/Plan
-
see bold
Assessment / Plan
Assessment / Plan
#Purulent drainage from J-tube site due to Loculated fluid subcutaneous anterior intra-abdominal drainage
#Recent sick shock from jejunal catheter infection with fluid collection subcutaneous anterior intra-abdominal wall adjacent to jejunal cath
#Partial gastrectomy Billroth II gastrojejunostomy/ Had J-tube placed on 04/28/2025 due to cachexia, weight loss, gastroparesis, low-grade dysplasia and ulceration at anastomosis
Jtube fell out 05/17, rubber catheter fell out 05/28 and not replaced due to purulent drainage
Patient started cefdinir was to finish on 06/13/2025 due to wound culture showing Klebsiella pneumonia and Enterobacter cloacae On 05/17/2025
Appreciate ID input, transition antibiotics to IV cefepime
Dr. Brown and IR are consulted for drainage
#Severe protein calorie malnutrition due to chronic illness/gastroparesis
Had J-tube placed on 04/28/2025 due to cachexia, weight loss, gastroparesis, low-grade dysplasia and ulceration at anastomosis
Jejunum biopsy negative for cancer. Recent weight gain 43.1 kg> 41.8 kg on 06/01/2025
Jejunal cath fell out 05/17, rubber catheter fell out 05/28 and not replaced due to purulent drainage
Has been eating regular diet with Ensure twice daily
#Essential thrombocytosis history
Follows with [facility]
#Chronic blood loss anemia secondary to GI ulceration proximal jejunum/iron deficiency
#Anemia of chronic disease
#Iron deficiency anemia
Recent iron IV transfusion/blood transfusion 05/17/2025 admission
Continue ferrous sulfate 142 mg p.o. every 48 hours
Trend hemoglobin, transfuse as needed
#Recent GI ulceration proximal jejunum May 2025
#Catalan's esophagus/GERD
Continue Carafate 1 g p.o. ACHS, Protonix 40 mg twice daily
#Heart failure reduced EF
#TTE 04/08/2024 with EF 35-40%
Continue Entresto recent reduced dose
#HTN
Continue carvedilol 6.25 mg p.o. twice daily with hold parameters
#HLD
Prior meds were DC'd
#CAD
#Arthritis
#Prior active smoker stopped recent admission
#Chronic ambulatory dysfunction
PT/OT, from [facility]
DVT prophylaxis - SCDs due to recent melena
DNR
Total time spent to see the patient on the floor, examine the patient, review data and lab results, discuss treatment plan with patient, nursing staff around 40 minutes.
Physical Exam
General: Appears Chronically Ill (cachectic), no acute distress, appears comfortable at this time.
HEENT: PERRLA
Respiratory: Clear; No Wheezes
Cardiac: S1/S2 and Regular Rhythm; No JVD
GI: abd soft nontender bowel sounds noted, previous Jtube site w/ erythema and mucopurulent discharge
Musculoskeletal: No Edema, ulnar deviation hands
Skin: Warm and Dry; No Rash
Neuro: AO x 3 conversant coherent
Psych: Calm
Anticipated Discharge: > 48 hours
Subjective/Interval History
-
Date of Service: June 08, 2025
Patient complains of chronic arm pain. She denies abdominal pain. Denies chest pain, shortness of breath. No fever, no vomiting.
Objective Data
-
Labs:
Laboratory Results
06/08/25
05:55
WBC 8.4
Hgb 9.1 L
Hct 31.3 L
Plt Count 437 H
Sodium 137
Potassium 3.9
Chloride 104
Carbon Dioxide 27
BUN 18 H
Creatinine 0.5 L
Glucose 58 L
Calcium 9.0
Total Bilirubin 0.5
AST 13 L
ALT 13
Alkaline Phosphatase 100
Vital Signs:
Vital Signs
Temp Pulse Resp BP Pulse Ox
97.7 F 70 15 136/65 95
06/08/25 07:25 06/08/25 08:29 06/08/25 07:25 06/08/25 08:29 06/08/25 07:25
I&O
06/07/25 06/08/25 06/09/25
06:59 06:59 06:59
Intake Total 340 / 340
Balance 340 / 340
--- NOTE | 2025-06-08 09:11 | PHA.VAN.FU ---
Vancomycin Assessment / Plan
- Assessment
Renal Function: Stable
WBC's are: WNL
In the past 24 hrs, patient has been: Afebrile
Concomitant Antimicrobials: piperacillin/tazobactam
- Dosing Plan
Adjust Regimen to: Vanc 750mg Q24H
New Regimen Predicts: AUC (412), Peak (28), Trough (10)
Dosing Comments: utilized IBW for dosing weight given BMI < 18.5
- Monitoring Plan
No level(s) ordered at this time: consider levels in next few days
- Follow Up
Pharmacy will continue to follow.
Vancomycin Follow UP
- -
Patient Age: 74
Patient Sex: Female
Vancomycin Day #: 2
Indication: Skin And Soft Tissue
Requesting Provider: Ramirez TATE
Pertinent Antimicrobial Allergies:
NKDA
Height / Weight:
Height 5 ft 5.5 in
Actual Weight 39.122 kg
IBW in k
Pertinent Past Medical History: BMI ~14
- Vital Signs / Lab Results
Temp Pulse Resp BP Pulse Ox
97.7 F 70 15 136/65 95
06/08/25 07:25 06/08/25 08:29 06/08/25 07:25 06/08/25 08:29 06/08/25 07:25
Lab Results - Hematology
06/07/25 06/08/25
14:30 05:55
WBC 12.8 H 8.4
Lab Results - Chemistry
06/07/25 06/07/25 06/08/25
14:30 15:30 05:55
BUN Cancelled 20 H 18 H
Creatinine Cancelled 0.5 L 0.5 L
Estimated Creat Clear Cancelled 55 50
Albumin Cancelled 3.2 L 2.9 L
Microbiology Results
06/07/25 14:30 Wound Culture - Preliminary
Abdomen No growth
Gram Stain - Preliminary
--- NOTE | 2025-06-08 09:44 | CON.ID ---
Consultation
-
Date/Time Consultation Requested: 06/07/25 18:33
Date/Time Consultation Performed: 06/08/25 9:57
Requesting Provider: Ramirez BOOTH
Performing Provider: Dr Campa
Reason for Consultation: abdominal wall abscess
Chief Complaint / Past History
Chief Complaint
drainage from previous J tube site
History of Present Illness
Ms Lopez is a 74 year old female with history of partial gastrectomy and billroth II anastomosis with suspected gastric cancer of the anastomotic ulcer who underwent G-tube placement 05/02 surgically; she now represents for drainage from the
previous tube site. She developed purulent drainage from the tube site as an outpatient and presented to the hospital from 05/17-06/01 for septic shock requiring pressors. She was found to have a subcutaneous abscess associated with the J-tube site.
Cultures grew K pneumoniae and E cloacae. She had accidental removal of the J-tube 05/18 and it was replaced with a red-rubber catheter however it was displaced again on 05/28. Dr Brown assessed that she would not tolerate another ex-lap for
replacement and that she would likely heal the abscess better with it being removed. She was initially having scant drainage from the tube site, serial CT scans showed decreased size of the abscess and she was placed on a two week course of
cefdinir. She now represents for relapse of drainage from the site despite antibiotic treatment. A repeat wound culture has been done and shows gram negative rods on the gram stain but no growth preliminary. The abscess has increased in size and
now measures 4.7 x 1.3 x 7.1 cm compared to 3.8 x 2.0 x 0.6 cm. Blood cultures x2 are in progress. She is currently on vancomycin and zosyn. ID and Interventional radiology are consulted for assistance with management.
Past History
Additional Past Medical History:
PUD s/p partial gastretcomy and Billroth II anastomosis (1999), recent diagnosis gastric cancer s/p J tube placement 05/02/25
partial gastrectomy Billroth II gastrojejunostomy,
J-tube placement became infected adjacent to the jejunal cath J-tube fell out 05/17/2025
ulceration of the proximal jejunum loops 05/17/2025
anemia likely from ulceration at jejunum/iron deficiency requiring IV iron transfusions PRBC 05/17/2025 admission
gastroparesis
Catalan's esophagus
Essential thrombocytosis
GERD
PUD
HTN
CAD
HLD
Former smoker
Protein calorie malnutrition/cachexia
Chronic ambulatory dysfunction currently stands to transfer only
Additional Past Surgical History:
see above
Allergy History:
No Known Allergies Allergy (Verified 06/07/25 13:18)
Social History
Tobacco: Former Smoker
Alcohol: None
Personal:
Family History
Family History: Not Pertinent
Review of Systems
Vital Signs
Temp Pulse Resp BP Pulse Ox
97.7 F 70 15 136/65 95
06/08/25 07:25 06/08/25 08:29 06/08/25 07:25 06/08/25 08:29 06/08/25 07:25
Physical Exam
Physical Exam
Constitutional: No Acute Distress
Cardiovascular: Regular Rate and S1/S2; Negative Murmur or Rub
Pulmonary: Clear and Symmetric; Negative Wheezes, Rales or Rhonchi
Gastrointestinal: Soft, Non Tender, Non Distended and Normal Bowel Sounds
Skin: Warm and Dry; Negative Rash or Jaundice
Wound: Other (suture material at the site which is spontaneously draining)
Lab / Diagnostic Study Results
06/08/25 05:55
06/08/25 05:55
Abs Immat Gran (auto) 0.0 10^3/uL (0-0.05) 06/08/25 05:55
Absolute Neuts (auto) 6.8 10^3/uL (1.4-6.5) H 06/08/25 05:55
Absolute Lymphs (auto) 0.6 10^3/uL (1.2-3.4) L 06/08/25 05:55
Absolute Monos (auto) 0.7 10^3/uL (0.1-0.6) H 06/08/25 05:55
Absolute Basos (auto) 0.0 10^3/uL (0-0.2) 06/08/25 05:55
Immature Gran % 0.5 % (0-0.5) 06/08/25 05:55
Neutrophils % 80.1 % (42.2-75.2) H 06/08/25 05:55
Lymphocytes % 7.0 % (20.5-51.1) L 06/08/25 05:55
Monocytes % 8.7 % (1.7-9.3) 06/08/25 05:55
Eosinophils % 3.2 % (0-6) 06/08/25 05:55
Basophils % 0.5 % (0-2) 06/08/25 05:55
Microbiology Results
Micro:
06/07/25 14:30 Wound Culture - Preliminary
Abdomen No growth
Gram Stain - Preliminary
06/08/25 00:09 MRSA Screen - Pending
Nose
06/07/25 14:30 Blood Culture - Pending
Blood/Venous
06/07/25 14:50 Blood Culture - Pending
Blood/Venous
Assessment / Plan
Abdominal wall abscess
- previous cultures with E cloacae and K pneumoniae; current culture negative
- apparent progression of abscess on cefdinir, wonder about inducible amp C with the enterobacter
- transition to cefepime, stop zosyn and vancomycin
- consult Dr Brown her surgeon to comment if drainage a possibility, IR is also consulted
[2025-06-08 10:34] VITALS: BMI 14.4
[2025-06-08] MEDS: ZOSYN IV (10:37)
--- NOTE | 2025-06-08 12:10 | CM ---
Previous admission to on 05/17/25 to 06/01/25. Was the discharged to [facility] for STR and readmitted to on 06/07/25. Initial assessment completed with patient who lives with her and 2 adult sons in a 1 story ranch style home with
finished basement, B/B on main level, 2 steps to enter. 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 She requires assistance with ADL's and assists. Has not been driving recently due to health issues and decreased
mobility. DME: Grab bars in bathroom, feeding tube supplies and RW. No in home services. No HC-POA, AD paperwork provided on previous admission. No VA benefits. No psychiatric hospitalizations. PCP is Dr. Anitra Aguilera. Pharmacy is [facility]
[place]. Discharge POC: Return to [facility] for resumption of STR. Will need updated auth.
[2025-06-08] MEDS: STERILE WATER FOR INJECTION 10 ML IV ×3 (13:11→23:29)
[2025-06-08] MEDS: MAXIPIME 1000 MG IV ×3 (13:11→23:29)
[2025-06-08] MEDS: XYLOCAINE 1% 3 ML S (13:14)
[2025-06-08 14:04] VITALS: BP 130/65; PULSE 80
[2025-06-08 14:26] VITALS: BP 130/65; PULSE 80
[2025-06-08 15:25] VITALS: BP 111/60
--- NOTE | 2025-06-08 17:21 | W.PN.SURGUPD ---
Surgical Update
Surgical Update
Under sterile condition, the abdominal abscess incised and drained. A small amount of purulent fluid expressed, but there was significant indurated inflammatory tissue. The new opening connects to the old feeding J-tube site. The wound was packed
with Iodoform gauze. Change dressing at least daily or prn. Will consult wound care team.
[2025-06-08 23:15] VITALS: BP 127/66
[2025-06-09] MEDS: TYLENOL 650 MG PO ×3 (03:30→17:58)
[2025-06-09] MEDS: STERILE WATER FOR INJECTION 10 ML IV ×4 (05:25→23:00)
[2025-06-09] MEDS: MAXIPIME 1000 MG IV ×4 (05:25→23:00)
[2025-06-09 06:00] VITALS: BMI 14.0
[2025-06-09 06:45] LABS: Hematocrit 29.7 % (37.0-47.0); Hemoglobin 8.5 g/dL (12.0-16.0); Mean Corp Hgb Conc. 28.6 g/dL (33.0-37.0); Mean Corpuscular Volume 93.4 fL (81.0-99.0); Platelet Count 394 10^3/uL (130-400); Red Cell Dist. Width 21.5 % (11.5-14.5)
[2025-06-09 07:00] VITALS: BP 129/69
[2025-06-09 07:01] LABS: Blood Urea Nitrogen 21 mg/dl (7-17); Calcium 8.5 mg/dl (8.4-10.2); Carbon Dioxide 28 mmol/L (22-30); Chloride 107 mmol/L (98-107); Estimated Creatinine Clearance 49 ml/min; Glucose 73 mg/dl (70-99); Magnesium 1.9 mg/dl (1.6-2.3); Potassium 4.0 mmol/L (3.5-5.1); Sodium 139 mmol/L (135-145); eGFR > 60.00
--- NOTE | 2025-06-09 08:45 | W.PN.HOSP.TC ---
Today's Communication/Plan
-
see bold
Assessment / Plan
Assessment / Plan
#Purulent drainage from J-tube site due to Loculated fluid subcutaneous anterior intra-abdominal drainage
#Recent sick shock from jejunal catheter infection with fluid collection subcutaneous anterior intra-abdominal wall adjacent to jejunal cath
#Partial gastrectomy Billroth II gastrojejunostomy/ Had J-tube placed on 04/28/2025 due to cachexia, weight loss, gastroparesis, low-grade dysplasia and ulceration at anastomosis
Jtube fell out 05/17, rubber catheter fell out 05/28 and not replaced due to purulent drainage
Patient started cefdinir was to finish on 06/13/2025 due to wound culture showing Klebsiella pneumonia and Enterobacter cloacae On 05/17/2025
Appreciate surgical oncology input, status post bedside I&D by Dr. Brown 06/08, resulting in small amount of purulent fluid, significant indurated inflammatory tissue, new opening connects to the old feeding J-tube site
Appreciate ID input, continue IV cefepime
Continue wound care
Patient wants to go back to [facility] short-term rehab upon discharge
#Severe protein calorie malnutrition due to chronic illness/gastroparesis
Had J-tube placed on 04/28/2025 due to cachexia, weight loss, gastroparesis, low-grade dysplasia and ulceration at anastomosis
Jejunum biopsy negative for cancer. Recent weight gain 43.1 kg> 41.8 kg on 06/01/2025
Jejunal cath fell out 05/17, rubber catheter fell out 05/28 and not replaced due to purulent drainage
Has been eating regular diet with Ensure twice daily
#Essential thrombocytosis history
#History of myeloproliferative disorder
Follows with [facility]/Dr. Barrera
Used to be on hydroxyurea 500 mg MOWEFR
#Chronic blood loss anemia secondary to GI ulceration proximal jejunum/iron deficiency
#Anemia of chronic disease
#Iron deficiency anemia
Recent iron IV transfusion/blood transfusion 05/17/2025 admission
Continue ferrous sulfate 142 mg p.o. every 48 hours
Trend hemoglobin, transfuse as needed
#Recent GI ulceration proximal jejunum May 2025
#Catalan's esophagus/GERD
Continue Carafate 1 g p.o. ACHS, Protonix 40 mg twice daily
#Heart failure reduced EF
#TTE 04/08/2024 with EF 35-40%
Continue Entresto recent reduced dose
#HTN
Continue carvedilol 6.25 mg p.o. twice daily with hold parameters
#HLD
Prior meds were DC'd
#CAD
#Arthritis
#Prior active smoker stopped recent admission
#Chronic ambulatory dysfunction
PT/OT, from [facility]
DVT prophylaxis - SCDs due to recent melena
DNR
Updated at bedside 06/09
Total time spent to see the patient on the floor, examine the patient, review data and lab results, discuss treatment plan with patient, nursing staff around 50 minutes.
Physical Exam
General: Appears Chronically Ill (cachectic), no acute distress, appears comfortable at this time.
HEENT: PERRLA
Respiratory: Clear; No Wheezes
Cardiac: S1/S2 and Regular Rhythm; No JVD
GI: abd soft nontender bowel sounds noted, previous Jtube site w/ erythema, incision packed
Musculoskeletal: No Edema, ulnar deviation hands
Skin: Warm and Dry; No Rash
Neuro: AO x 3 conversant coherent
Psych: Calm
Anticipated Discharge: > 48 hours
Subjective/Interval History
-
Date of Service: June 09, 2025
Patient denies abdominal pain, denies nausea, denies vomiting. She is tolerating her meals. No chest pain, no shortness of breath. No fever.
Objective Data
-
Labs:
Laboratory Results
06/09/25
05:41
WBC 7.3
Hgb 8.5 L
Hct 29.7 L
Plt Count 394
Sodium 139
Potassium 4.0
Chloride 107
Carbon Dioxide 28
BUN 21 H
Creatinine 0.5 L
Glucose 73
Calcium 8.5
Vital Signs:
Vital Signs
Temp Pulse Resp BP Pulse Ox
97.7 F 69 18 129/69 96
06/09/25 07:00 06/09/25 07:00 06/09/25 07:00 06/09/25 07:00 06/09/25 07:00
I&O
06/08/25 06/09/25 06/10/25
06:59 06:59 06:59
Intake Total 340 / 340 720 / 720
Balance 340 / 340 720 / 720
[2025-06-09] MEDS: COREG 6.25 MG PO ×2 (09:25→20:06)
[2025-06-09] MEDS: ASPIR LOW (ENTERIC COATED) 81 MG PO (09:25)
[2025-06-09] MEDS: LASIX 20 MG PO (09:26)
[2025-06-09] MEDS: FEOSOL 325 MG PO (09:26)
[2025-06-09] MEDS: ENTRESTO 24 MG/26 MG 1 TAB PO ×2 (09:26→20:07)
[2025-06-09] MEDS: PROTONIX 40 MG PO ×2 (09:26→20:06)
[2025-06-09] MEDS: VITAMIN D3 (cholecalciferol) 25 MCG PO (09:26)
[2025-06-09] MEDS: CARAFATE 1 GRAM PO ×4 (09:26→22:59)
--- NOTE | 2025-06-09 11:10 | CM ---
Reviewed the chart notes and spoke with the patient at the bedside. Referral sent to [facility] with hopes of continuing short term rehab. CM continues to be available to patient/family and is monitoring medical plan for needs at discharge.
Plan: Discharge hopefully to [facility]. Precert required. Referral sent previously in [facility]. Accepted based on bed availability.
--- NOTE | 2025-06-09 11:23 | W.PN.ID1 ---
Date of Service
Date of Service: June 09, 2025
Today's Communication
Continue cefepime.
Assessment / Plan
Abdominal wall abscess
- 06/08 Dr Brown performed bedside I+D, minimal pus, there was significant inflamed indurated tissue, opening connects to previous J-tube site.
- previous cultures with E cloacae and K pneumoniae; current culture negative to date; gram stain many GNR
- apparent progression of abscess on cefdinir, wonder about inducible amp C with the enterobacter
- continue cefepime pending final cx.
Chief Complaint
-: Other (Previous J tube site abscess)
Subjective / Review of Systems
No new complaints. Eating well.
Vital Signs / Physical Exam
Vital Signs
Vital Signs
Temp Pulse Resp BP Pulse Ox
97.7 F 69 18 129/69 96
06/09/25 07:00 06/09/25 09:25 06/09/25 07:00 06/09/25 09:25 06/09/25 07:00
Physical Exam
Constitutional: Chronically Ill and Cachetic
Eyes: Sclera Anicteric
Cardiovascular: Regular Rate and S1/S2
Pulmonary: Clear
Gastrointestinal: Soft, Tender (mild over LUQ packed wound with gauze) and Non Distended
Extremities: Negative Edema
Neurological: AO x 3
Objective Data
Lab Data
Lab Results
06/09/25 05:41
06/09/25 05:41
Estimated Creat Clear 49 ml/min 06/09/25 05:41
Total Bilirubin 0.5 mg/dl (0.2-1.3) 06/08/25 05:55
AST 13 U/L (14-36) L 06/08/25 05:55
ALT 13 U/L (0-35) 06/08/25 05:55
Alkaline Phosphatase 100 U/L (38-126) 06/08/25 05:55
Most recent labs reviewed.
Micro Results:
06/08/25 00:09 MRSA Screen - Final
Nose No Methicillin Resistant Staphylococcus aureus isolated.
06/07/25 14:30 Blood Culture - Preliminary
Blood/Venous No Growth in 24 hours- Final report to follow
06/07/25 14:50 Blood Culture - Preliminary
Blood/Venous No Growth in 24 hours- Final report to follow
06/07/25 14:30 Wound Culture - Preliminary
Abdomen No growth
Gram Stain - Preliminary
[2025-06-09 15:00] VITALS: BP 122/61
[2025-06-09 19:00] VITALS: BP 121/59
[2025-06-09 23:00] VITALS: BP 127/63
[2025-06-10] MEDS: TYLENOL 650 MG PO ×3 (00:07→20:13)
[2025-06-10] MEDS: STERILE WATER FOR INJECTION 10 ML IV (05:12)
[2025-06-10] MEDS: MAXIPIME 1000 MG IV (05:12)
[2025-06-10 05:38] VITALS: BMI 13.9
[2025-06-10 06:43] LABS: Hematocrit 29.0 % (37.0-47.0); Hemoglobin 8.8 g/dL (12.0-16.0); Mean Corp Hgb Conc. 30.3 g/dL (33.0-37.0); Mean Corpuscular Volume 89.5 fL (81.0-99.0); Platelet Count 393 10^3/uL (130-400); Red Cell Dist. Width 21.1 % (11.5-14.5)
[2025-06-10 07:14] LABS: Blood Urea Nitrogen 18 mg/dl (7-17); Calcium 8.9 mg/dl (8.4-10.2); Carbon Dioxide 28 mmol/L (22-30); Chloride 108 mmol/L (98-107); Estimated Creatinine Clearance 49 ml/min; Glucose 77 mg/dl (70-99); Potassium 4.1 mmol/L (3.5-5.1); Sodium 139 mmol/L (135-145); eGFR > 60.00
[2025-06-10 07:25] VITALS: BP 124/65
[2025-06-10] MEDS: VITAMIN D3 (cholecalciferol) 25 MCG PO (10:10)
[2025-06-10] MEDS: ENTRESTO 24 MG/26 MG 1 TAB PO ×2 (10:14→20:02)
[2025-06-10] MEDS: CARAFATE 1 GRAM PO ×4 (10:14→21:51)
[2025-06-10] MEDS: COREG 6.25 MG PO ×2 (10:14→20:02)
[2025-06-10] MEDS: PROTONIX 40 MG PO ×2 (10:15→20:02)
[2025-06-10] MEDS: LASIX 20 MG PO (10:15)
[2025-06-10] MEDS: ASPIR LOW (ENTERIC COATED) 81 MG PO (10:15)
--- NOTE | 2025-06-10 10:17 | W.PN.ID1 ---
Date of Service
Date of Service: June 10, 2025
Today's Communication
Transition cefepime to cipro 500mg po bid and metronidazole 500mg po bid through 06/21/25.
Assessment / Plan
Abdominal wall abscess
- 06/08 Dr Brown performed bedside I+D, minimal pus, there was significant inflamed indurated tissue, opening connects to previous J-tube site.
- previous cultures with E cloacae and K pneumoniae; current culture negative to date; gram stain mod GNR
- apparent progression of abscess on cefdinir, wonder about inducible amp C with the enterobacter cloacae, and/or anaerobes
- Transition cefepime to cipro 500mg po bid and metronidazole 500mg po bid through 06/21/25.
Chief Complaint
-: Other (Previous J tube site abscess)
Subjective / Review of Systems
No new complaints.
Vital Signs / Physical Exam
Vital Signs
Vital Signs
Temp Pulse Resp BP Pulse Ox
98.1 F 72 15 124/65 94
06/10/25 07:25 06/10/25 07:25 06/10/25 07:25 06/10/25 07:25 06/10/25 07:25
Physical Exam
Constitutional: Chronically Ill and Cachetic
Eyes: Sclera Anicteric
Cardiovascular: Regular Rate and S1/S2
Pulmonary: Clear
Gastrointestinal: Soft, Tender (mild over LUQ packed wound with gauze), Non Distended and Other (RUQ wound packing in place with dry blood, no pus, no significant surrounding erythema. )
Extremities: Negative Edema
Neurological: AO x 3
Objective Data
Lab Data
Lab Results
06/10/25 05:55
06/10/25 05:55
Estimated Creat Clear 49 ml/min 06/10/25 05:55
Total Bilirubin 0.5 mg/dl (0.2-1.3) 06/08/25 05:55
AST 13 U/L (14-36) L 06/08/25 05:55
ALT 13 U/L (0-35) 06/08/25 05:55
Alkaline Phosphatase 100 U/L (38-126) 06/08/25 05:55
Most recent labs reviewed.
Micro Results:
06/07/25 14:50 Blood Culture - Preliminary
Blood/Venous No Growth in 48 hours- Final report to follow
06/07/25 14:30 Blood Culture - Preliminary
Blood/Venous No Growth in 48 hours- Final report to follow
06/07/25 14:30 Wound Culture - Preliminary
Abdomen No growth
Gram Stain - Preliminary
06/08/25 00:09 MRSA Screen - Final
Nose No Methicillin Resistant Staphylococcus aureus isolated.
Care Review
Plan reviewed with: Physician (Dr. Ehsan Null)
[2025-06-10] MEDS: CIPRO 500 MG PO ×2 (12:37→20:02)
[2025-06-10] MEDS: FLAGYL 500 MG PO ×2 (12:37→20:02)
--- NOTE | 2025-06-10 13:59 | W.PN.HOSP.TC ---
Today's Communication/Plan
-
Discharge to [facility] nursing rehab when bed available
Assessment / Plan
Assessment / Plan
#Purulent drainage from J-tube site due to Loculated fluid subcutaneous anterior intra-abdominal drainage
#Recent sick shock from jejunal catheter infection with fluid collection subcutaneous anterior intra-abdominal wall adjacent to jejunal cath
#Partial gastrectomy Billroth II gastrojejunostomy/ Had J-tube placed on 04/28/2025 due to cachexia, weight loss, gastroparesis, low-grade dysplasia and ulceration at anastomosis
Jtube fell out 05/17, rubber catheter fell out 05/28 and not replaced due to purulent drainage
Patient started cefdinir was to finish on 06/13/2025 due to wound culture showing Klebsiella pneumonia and Enterobacter cloacae On 05/17/2025
Appreciate surgical oncology input, status post bedside I&D by Dr. Brown 06/08, resulting in small amount of purulent fluid, significant indurated inflammatory tissue, new opening connects to the old feeding J-tube site
Appreciate ID input, current culture negative to date, Gram stain shows moderate gram-negative rods
ID changed IV cefepime to Cipro 500mg po bid and metronidazole 500mg po bid through 06/21/25
Continue wound care
Patient wants to go back to [facility] short-term rehab upon discharge
#Severe protein calorie malnutrition due to chronic illness/gastroparesis
Had J-tube placed on 04/28/2025 due to cachexia, weight loss, gastroparesis, low-grade dysplasia and ulceration at anastomosis
Jejunum biopsy negative for cancer. Recent weight gain 43.1 kg> 41.8 kg on 06/01/2025
Jejunal cath fell out 05/17, rubber catheter fell out 05/28 and not replaced due to purulent drainage
Has been eating regular diet with Ensure twice daily
#Essential thrombocytosis history
#History of myeloproliferative disorder
Follows with [facility]/Dr. Barrera
Used to be on hydroxyurea 500 mg MOWEFR
#Chronic blood loss anemia secondary to GI ulceration proximal jejunum/iron deficiency
#Anemia of chronic disease
#Iron deficiency anemia
Recent iron IV transfusion/blood transfusion 05/17/2025 admission
Continue ferrous sulfate 142 mg p.o. every 48 hours
Trend hemoglobin, transfuse as needed
#Recent GI ulceration proximal jejunum May 2025
#Catalan's esophagus/GERD
Continue Carafate 1 g p.o. ACHS, Protonix 40 mg twice daily
#Heart failure reduced EF
#TTE 04/08/2024 with EF 35-40%
Continue Entresto recent reduced dose
#HTN
Continue carvedilol 6.25 mg p.o. twice daily with hold parameters
#HLD
Prior meds were DC'd
#CAD
#Arthritis
#Prior active smoker stopped recent admission
#Chronic ambulatory dysfunction
PT/OT, from [facility]
DVT prophylaxis - SCDs due to recent melena
DNR
Updated at bedside 06/09
Total time spent to see the patient on the floor, examine the patient, review data and lab results, discuss treatment plan with patient, nursing staff around 40 minutes.
Physical Exam
General: Appears Chronically Ill (cachectic), no acute distress, appears comfortable at this time.
HEENT: PERRLA
Respiratory: Clear; No Wheezes
Cardiac: S1/S2 and Regular Rhythm; No JVD
GI: abd soft nontender bowel sounds noted, previous Jtube site w/ erythema, incision packed
Musculoskeletal: No Edema, ulnar deviation hands
Skin: Warm and Dry; No Rash
Neuro: AO x 3 conversant coherent
Psych: Calm
Anticipated Discharge: Within 24 hours
Subjective/Interval History
-
Date of Service: June 10, 2025
Patient denies nausea, denies vomiting. No abdominal pain. No chest pain, no shortness of breath. No fever.
Objective Data
-
Labs:
Laboratory Results
06/10/25
05:55
WBC 7.0
Hgb 8.8 L
Hct 29.0 L
Plt Count 393
Sodium 139
Potassium 4.1
Chloride 108 H
Carbon Dioxide 28
BUN 18 H
Creatinine 0.5 L
Glucose 77
Calcium 8.9
Vital Signs:
Vital Signs
Temp Pulse Resp BP Pulse Ox
98.1 F 72 15 124/65 94
06/10/25 07:25 06/10/25 07:25 06/10/25 07:25 06/10/25 07:25 06/10/25 07:25
I&O
06/09/25 06/10/25 06/11/25
06:59 06:59 06:59
Intake Total 720 / 720 830 / 830 180 / 180
Balance 720 / 720 830 / 830 180 / 180
--- NOTE | 2025-06-10 14:38 | CM ---
Addendum entered by Arielle Turk 06/11/25 13:31:
Transport Auth good for 06/11/25 and 06/12/25
Auth # [id number]
Addendum entered by Arielle Turk 06/10/25 15:11:
Auth # [id number]
5 Days NR 06/14
Review # [id number]
Original Note:
Auth started for dc to [facility]
Report # [phone]
[2025-06-10 15:25] VITALS: BP 116/66
[2025-06-10 16:20] VITALS: O2SAT 95
[2025-06-10 18:01] LABS: COVID-19 Antigen Negative (Negative)
[2025-06-10 20:15] VITALS: BP 125/66
[2025-06-10] MEDS: REMERON 7.5 MG PO (21:51)
[2025-06-10 23:02] VITALS: BP 131/66
[2025-06-11 05:14] VITALS: BMI 13.7
[2025-06-11] MEDS: TYLENOL 650 MG PO ×2 (05:18→12:09)
[2025-06-11 06:27] LABS: Hematocrit 29.8 % (37.0-47.0); Hemoglobin 8.8 g/dL (12.0-16.0); Mean Corp Hgb Conc. 29.5 g/dL (33.0-37.0); Mean Corpuscular Volume 92.8 fL (81.0-99.0); Platelet Count 380 10^3/uL (130-400); Red Cell Dist. Width 21.2 % (11.5-14.5)
[2025-06-11 06:55] LABS: Blood Urea Nitrogen 19 mg/dl (7-17); Calcium 8.8 mg/dl (8.4-10.2); Carbon Dioxide 29 mmol/L (22-30); Chloride 106 mmol/L (98-107); Estimated Creatinine Clearance 48 ml/min; Glucose 70 mg/dl (70-99); Potassium 3.9 mmol/L (3.5-5.1); Sodium 138 mmol/L (135-145); eGFR > 60.00
[2025-06-11 07:25] VITALS: BP 135/62
[2025-06-11] MEDS: CARAFATE 1 GRAM PO ×2 (09:33→12:10)
[2025-06-11] MEDS: PROTONIX 40 MG PO (09:33)
[2025-06-11] MEDS: COREG 6.25 MG PO (09:34)
[2025-06-11] MEDS: ENTRESTO 24 MG/26 MG 1 TAB PO (09:34)
[2025-06-11] MEDS: FEOSOL 325 MG PO (09:34)
[2025-06-11] MEDS: ASPIR LOW (ENTERIC COATED) 81 MG PO (09:34)
[2025-06-11] MEDS: FLAGYL 500 MG PO (09:35)
[2025-06-11] MEDS: VITAMIN D3 (cholecalciferol) 25 MCG PO (09:35)
[2025-06-11] MEDS: LASIX 20 MG PO (09:35)
[2025-06-11] MEDS: CIPRO 500 MG PO (09:41)
--- NOTE | 2025-06-11 10:07 | W.PN.HOSP.TC ---
Today's Communication/Plan
-
Discharge today
Assessment / Plan
Assessment / Plan
#Purulent drainage from J-tube site due to Loculated fluid subcutaneous anterior intra-abdominal drainage
#Recent sick shock from jejunal catheter infection with fluid collection subcutaneous anterior intra-abdominal wall adjacent to jejunal cath
#Partial gastrectomy Billroth II gastrojejunostomy/ Had J-tube placed on 04/28/2025 due to cachexia, weight loss, gastroparesis, low-grade dysplasia and ulceration at anastomosis
Jtube fell out 05/17, rubber catheter fell out 05/28 and not replaced due to purulent drainage
Patient started cefdinir was to finish on 06/13/2025 due to wound culture showing Klebsiella pneumonia and Enterobacter cloacae On 05/17/2025
Appreciate surgical oncology input, status post bedside I&D by Dr. Brown 06/08, resulting in small amount of purulent fluid, significant indurated inflammatory tissue, new opening connects to the old feeding J-tube site
Appreciate ID input, current culture negative to date, Gram stain shows moderate gram-negative rods
ID changed IV cefepime to Cipro 500mg po bid and metronidazole 500mg po bid through 06/21/25
Continue wound care
Discharge to [facility]] short-term rehab today
#Severe protein calorie malnutrition due to chronic illness/gastroparesis
Had J-tube placed on 04/28/2025 due to cachexia, weight loss, gastroparesis, low-grade dysplasia and ulceration at anastomosis
Jejunum biopsy negative for cancer. Recent weight gain 43.1 kg> 41.8 kg on 06/01/2025
Jejunal cath fell out 05/17, rubber catheter fell out 05/28 and not replaced due to purulent drainage
Has been eating regular diet with Ensure twice daily
#Essential thrombocytosis
Follows with [facility]/Dr. Barrera
Used to be on hydroxyurea 500 mg MOWEFR
Discussed with Dr. Barrera, her platelets are now normal, no need to resume currently
#Chronic blood loss anemia secondary to GI ulceration proximal jejunum/iron deficiency
#Anemia of chronic disease
#Iron deficiency anemia
Recent iron IV transfusion/blood transfusion 05/17/2025 admission
Continue ferrous sulfate 142 mg p.o. every 48 hours
Trend hemoglobin, transfuse as needed
#Recent GI ulceration proximal jejunum May 2025
#Catalan's esophagus/GERD
Continue Carafate 1 g p.o. ACHS, Protonix 40 mg twice daily
#Heart failure reduced EF
#TTE 04/08/2024 with EF 35-40%
Continue Entresto recent reduced dose
#HTN
Continue carvedilol 6.25 mg p.o. twice daily with hold parameters
#HLD
Prior meds were DC'd
#CAD
#Arthritis
#Prior active smoker stopped recent admission
#Chronic ambulatory dysfunction
PT/OT, from [facility] SN[facility]
DVT prophylaxis - SCDs due to recent melena
DNR
Updated at bedside 06/10
Physical Exam
General: Appears Chronically Ill (cachectic), no acute distress, appears comfortable at this time.
HEENT: PERRLA
Respiratory: Clear; No Wheezes
Cardiac: S1/S2 and Regular Rhythm; No JVD
GI: abd soft nontender bowel sounds noted, previous Jtube site w/ erythema, incision packed
Musculoskeletal: No Edema, ulnar deviation hands
Skin: Warm and Dry; No Rash
Neuro: AO x 3 conversant coherent
Psych: Calm
Anticipated Discharge: Today
Subjective/Interval History
-
Date of Service: June 11, 2025
Denies abdominal pain. No nausea, no vomiting. No chest pain, no shortness of breath. No fever.
Objective Data
-
Labs:
Laboratory Results
06/11/25
05:34
WBC 7.1
Hgb 8.8 L
Hct 29.8 L
Plt Count 380
Sodium 138
Potassium 3.9
Chloride 106
Carbon Dioxide 29
BUN 19 H
Creatinine 0.5 L
Glucose 70
Calcium 8.8
Vital Signs:
Vital Signs
Temp Pulse Resp BP Pulse Ox
97.6 F 66 16 135/62 96
06/11/25 07:25 06/11/25 07:25 06/11/25 07:25 06/11/25 07:25 06/11/25 07:25
I&O
06/10/25 06/11/25 06/12/25
06:59 06:59 06:59
Intake Total 830 / 830 780 / 780
Balance 830 / 830 780 / 780
--- NOTE | 2025-06-11 11:35 | W.PN.ID1 ---
Date of Service
Date of Service: June 11, 2025
Today's Communication
Continue cipro 500mg po bid and metronidazole 500mg po bid through 06/21/25.
Assessment / Plan
Abdominal wall abscess
- 06/08 Dr Brown performed bedside I+D, minimal pus, there was significant inflamed indurated tissue, opening connects to previous J-tube site.
- previous cultures with E cloacae and K pneumoniae; current culture negative; gram stain mod GNR
- apparent progression of abscess on cefdinir, wonder about inducible amp C with the enterobacter cloacae, and/or anaerobes
- Continue cipro 500mg po bid and metronidazole 500mg po bid through 06/21/25.
- DC to rehab
Chief Complaint
-: Other (Previous J tube site abscess)
Subjective / Review of Systems
Tolerating cipro and metronidazole.
Vital Signs / Physical Exam
Vital Signs
Vital Signs
Temp Pulse Resp BP Pulse Ox
97.6 F 66 16 135/62 96
06/11/25 07:25 06/11/25 07:25 06/11/25 07:25 06/11/25 07:25 06/11/25 09:25
Physical Exam
Constitutional: Chronically Ill
Eyes: Sclera Anicteric
Cardiovascular: Regular Rate and S1/S2
Pulmonary: Clear
Gastrointestinal: Soft, Tender (mild over LUQ packed wound with gauze), Non Distended and Other (RUQ wound packing in place with dry blood, no pus, no significant surrounding erythema. )
Extremities: Negative Edema
Neurological: AO x 3
Objective Data
Lab Data
Lab Results
06/11/25 05:34
06/11/25 05:34
Estimated Creat Clear 48 ml/min 06/11/25 05:34
Total Bilirubin 0.5 mg/dl (0.2-1.3) 06/08/25 05:55
AST 13 U/L (14-36) L 06/08/25 05:55
ALT 13 U/L (0-35) 06/08/25 05:55
Alkaline Phosphatase 100 U/L (38-126) 06/08/25 05:55
Most recent labs reviewed.
Micro Results:
06/07/25 14:50 Blood Culture - Preliminary
Blood/Venous No Growth in 72 hours- Final report to follow
06/07/25 14:30 Blood Culture - Preliminary
Blood/Venous No Growth in 72 hours- Final report to follow
06/07/25 14:30 Wound Culture - Final
Abdomen No growth
Gram Stain - Final
06/08/25 00:09 MRSA Screen - Final
Nose No Methicillin Resistant Staphylococcus aureus isolated.
--- NOTE | 2025-06-11 12:24 | W.DCSUMMARY ---
Discharge Summary
Discharge Data
Date of Admission: 06/07/25
Date of Discharge: 06/11/25
-
Pending Results: No
Hospital Course
Discharge diagnosis:
Abdominal wall abscess
Severe protein calorie malnutrition due to chronic illness/gastroparesis
Cachexia/failure to thrive
Essential thrombocytosis
Chronic blood loss anemia secondary to ulceration proximal jejunum
Anemia of chronic disease
Iron deficiency anemia
Chronic heart failure
Arthritis
Chronic ambulatory dysfunction
Consults: ID
Hospital course:
74-year-old female with a past medical history of peptic ulcer disease status post partial gastrectomy and Billroth II anastomosis in 1999, anastomotic ulcer, chronic HFrEF, status post J-tube placement on 05/02/25, arthritis, anemia of chronic
disease, iron deficiency anemia, essential thrombocytosis, and severe protein calorie malnutrition who was admitted for abdominal wall abscess near her previous J-tube site. Patient was seen in conjunction with ID, and treated with IV cefepime.
Her abscess was drained by surgical oncology/Dr. Brown on 06/08/25. Gram stain showed gram-negative rods, cultures were negative. ID transitioned her antibiotics to Flagyl and ciprofloxacin, which she needs to continue through 06/21/25. Patient
tolerated her antibiotics.
Patient has a history of essential thrombocytosis, and was maintained on hydroxyurea 500 mg Thursday/Thursday/Fridays in the past. She has not been on it for 2-3 weeks. Discussed with her oncologist/Dr. Barrera, she does not need to resume her
hydroxyurea since her platelets are now normal.
Patient's medical conditions have been optimized. She is discharged to short-term rehab. She needs to follow-up with her PCP 1 week after she leaves rehab.
Disposition: Short-term rehab
Discharge planning: Required 41 minutes
Discharge Plan
-
Patient Disposition: Detention/SNF
Discharge Diagnosis/Procedures: Abdominal wall abscess, failure to thrive, severe protein calorie malnutrition, recent bleeding ulcer
Condition: Fair
Diet: Regular and Supplements
Additional Diets: Boost or Ensure twice a day
Activity: As tolerated
Activity Restrictions/Additional Instructions:
Continue cipro 500mg po bid and metronidazole 500mg po bid through 06/21/25.
If patient is taking antacid, iron, zinc, magnesium, aluminum, calcium, or sucralfate, give these products 6 hours before or 2 hours after
ciprofloxacin.
Remove iodoform and replace it with wet-to-dry dressing. Change dressing at least daily.
A rehab doctor will see you at [facility] ([facility]
Please follow-up with your PCP 1 week after you leave rehab.
Referrals:
Todd Ryan MD [Family Provider, [facility]] - in less than 1 week
Prescriptions:
New
metronidazole 500 mg Tablet
500 mg PO BID 11 Days Qty: 22 0RF
ciprofloxacin HCl 500 mg Tablet
500 mg PO BID 11 Days Qty: 22 0RF
mirtazapine 7.5 mg Tablet
7.5 mg PO HS Qty: 0 0RF
Continued
pantoprazole 40 MG tablet,delayed release (DR/EC)
40 mg PO BID
aspirin 81 mg Tablet,Delayed Release (Dr/Ec)
81 mg PO DAILY
ferrous sulfate 142 mg (45 mg iron) Tablet Extended Release
142 mg PO Q48H
carvedilol 12.5 mg Tablet
6.25 mg PO BID
furosemide [Lasix] 20 mg Tablet
20 mg PO DAILY
cholecalciferol (vitamin D3) [Vitamin D3] 25 mcg (1,000 unit) Tablet
25 mcg PO DAILY
sacubitril-valsartan 24-26 mg Tablet
1 tab PO BID Qty: 60 0RF
acetaminophen [Tylenol] 325 mg Tablet
650 mg PO Q6HPRN PRN (Reason: mild pain)
sucralfate [Carafate] 1 gram Tablet
1 g PO ACHS
zinc oxide 20 % Ointment
1 applic TOPICAL BID
magnesium hydroxide [Milk of Magnesia] 400 mg/5 mL Suspension
2,400 mg PO [id number] PRN (Reason: constipation)
bisacodyl [Dulcolax (bisacodyl)] 10 mg Suppository
10 mg DC DAILYPRN PRN (Reason: if no bm aftr mom)
Fleet Enema 19-7 gram/118 mL Enema
118 ml DC DAILYPRN PRN (Reason: if no bm aftr dulcolax)
Discontinued
cefdinir 300 mg capsule
300 mg PO BID
Rx Instructions:
Continue through 06/13 then stop
hydroxyurea 500 mg Capsule
500 mg PO MUST ENTER DOSE
Rx Instructions:
M-W-F 500mg daily
Discharge Orders:
Discharge Patient (As Directed); Ordered 06/11/25
Ordered By: Thomas Null
Discharge Date and Time
Discharge Date/Time: 06/11/25 15:29
Print Language: POLISH
[2025-06-11 14:30] VITALS: BP 117/67
== END 2025-06-11 15:29 | DRG 579 ==
LOC: 2 SOUTH 18:13
PROVIDERS: Clinical Nurse Specialist Family Health; Nurse Practitioner; Surgery; ADMITTING PHYSICIAN Hospitalist; ATTENDING PHYSICIAN Family Medicine; EMERGENCY PHYSICIAN Emergency Medicine; FAMILY PHYSICIAN Family Medicine; OTHER PHYSICIAN Student in an Organized Health Care Education/Training Program
PROC: 0W9F0ZZ Drainage of Abdominal Wall, Open Approach (ICD-10-PCS; 2025-06-08)
DX: L02.211 Cutaneous abscess of abdominal wall (principal); E43 Unspecified severe protein-calorie malnutrition; R64 Cachexia; Z68.1 Body mass index [BMI] 19.9 or less, adult; I50.22 Chronic systolic (congestive) heart failure; C16.9 Malignant neoplasm of stomach, unspecified; K31.84 Gastroparesis; R62.7 Adult failure to thrive; D47.3 Essential (hemorrhagic) thrombocythemia; D50.0 Iron deficiency anemia secondary to blood loss (chronic); D63.8 Anemia in other chronic diseases classified elsewhere; Z87.11 Personal history of peptic ulcer disease; D72.829 Elevated white blood cell count, unspecified; K21.9 Gastro-esophageal reflux disease without esophagitis; I11.0 Hypertensive heart disease with heart failure; I25.10 Atherosclerotic heart disease of native coronary artery without angina pectoris; E78.00 Pure hypercholesterolemia, unspecified; K22.70 Barrett's esophagus without dysplasia; Z87.891 Personal history of nicotine dependence; Z66 Do not resuscitate; E87.5 Hyperkalemia; Z90.3 Acquired absence of stomach [part of]; Z11.52 Encounter for screening for COVID-19
CPT/HCPCS: 74177; 80048; 80053; 82962; 83735; 85025; 85027; 87040; 87070; 87205; 87811; 93005; 96365; 96367; 97116; 97162; 97167; 99285; Q9967

== ENCOUNTER 2025-06-21 16:12 | Emergency (ER) | payer OTHER, SELFPAY ==
[2025-06-21 16:16] VITALS: BP 132/68
--- NOTE | 2025-06-21 16:31 | ED.GENMED ---
History of Present Illness
General
Chief Complaint: Skin Problem
Source: patient
Exam Limitations: none
Time Seen by Provider: 06/21/25 16:16
History of Present Illness
History of Present Illness:
See MDM
Past History
Past History
ED Past Medical History: CAD, GERD, HTN, Hypercholesterolemia and Other (Iron deficiency anemia, peptic ulcer disease)
ED Past Surgical History: Cholecystectomy and Other (Partial gastrectomy)
Social History
Tobacco: Smoker
Alcohol: None
Drug: None
Personal:
Living: with family
Phy Exam
Physical Exam
Physical Exam:
See MDM
Course
Vital Signs
Initial and Last Documented VS:
Initial Vital Signs
Temp Pulse Resp BP Pulse Ox
98.1 F 78 16 132/68 94
06/21/25 16:16 06/21/25 16:16 06/21/25 16:16 06/21/25 16:16 06/21/25 16:16
Last Documented Vital Signs
Temp Pulse Resp BP Pulse Ox
98.1 F 78 16 132/68 94
06/21/25 16:16 06/21/25 16:16 06/21/25 16:16 06/21/25 16:16 06/21/25 16:16
MDM/Problems Addressed
Differential Diagnosis Includes:
Note:
CHIEF COMPLAINT(S)
Abdominal wall abscess drainage.
HISTORY OF PRESENT ILLNESS
The patient is a 74-year-old female with a recent history of an abdominal wall abscess which was drained. The patient expresses no significant complaints and reports feeling well overall. The patient was discharged but has been experiencing
persistent drainage from the abscess site, which she describes as 'more than normal.' She is concerned about being admitted and prefers outpatient management as the drainage is ongoing. The patient denies discomfort but notes that there was a good
amount of pus in the region at her previous visit, which led to the current referral.
SOCIAL DETERMINANTS OF HEALTH
The patient has a history of smoking for over 50 years but successfully quit smoking approximately five years ago with the aid of a nicotine patch.
PHYSICAL EXAM
General: Alert, no acute distress.
Skin: Warm, dry.
Head: Normocephalic, atraumatic
Neck: Appears supple, trachea midline.
Eyes, Ears, Nose, Mouth, and Throat: Moist mucous membranes
Cardiovascular: No signs of cyanosis
Respiratory: Respirations are non-labored.
Abdomen: Lower mid/left I&D site with purulent drainage. No skin changes
Musculoskeletal: No deformities
Neurological: No focal neurological deficit observed.
Psychiatric: Cooperative, appropriate mood and affect.
PLAN
The plan involves contacting the patients surgeon to discuss the current status and to confirm the appropriateness of continuing outpatient care. The patient would like to return to her previous location and avoid hospital admission. A proposal was
made to manage the open wound to ensure proper drainage and healing without immediate surgical intervention unless otherwise guided by her surgeon.
SUMMARY OF ENCOUNTER
The patient presented to the emergency department with concerns regarding continued drainage from a previously managed abdominal wall abscess. After evaluation, the decision was made to coordinate with the patients surgeon to confirm that outpatient
management is appropriate.
DISPOSITION
Patient discharge to previous location was considered, contingent upon consultation results with her surgeon.
MEDICAL DECISION MAKING
- Number and Complexity of Problems Addressed: The primary concern is the abdominal wall abscess drainage.
- Data:
- Category 1: None mentioned.
- Category 2: None mentioned.
- Category 3: Planned discussion with the patients surgeon regarding management of the abscess drainage.
DIFFERENTIAL DIAGNOSIS
The Differential Diagnosis includes, in no particular order and is not limited to:
- Post-operative wound infection
- Recurrent abscess
- Cellulitis
- Fistula formation
- Wound dehiscence
- Hematoma
- Seroma
- Necrotizing fasciitis
- Foreign body reaction
- Granulomatous inflammation
DIAGNOSIS
Post-procedural drainage of abdominal abscess (ICD-10: L02.229)
CARE-UPDATE
06/21/25 - 16:31
Dr. Brown reviewed the wound image and confirmed the appearance is as expected. We agreed on implementing wet to dry packing for wound care. The patient is cleared for discharge back to her facility, with arrangements for follow-up with Dr. Brown in an
outpatient setting.
Disposition:
SUMMARY OF ENCOUNTER
The patient presented with concerns about ongoing drainage from an abdominal wall abscess site, which is an anticipated post-surgical occurrence. The surgeon is informed about the situation and feels comfortable managing it on an outpatient basis.
The patient is non-toxic appearing with no signs of cellulitis. Wet-to-dry dressing changes were discussed and agreed upon as part of the management plan.
DISPOSITION
Discharge.
PLAN
Implement wet-to-dry dressing changes to manage the drainage from the abscess site and ensure proper healing.
PATIENT EDUCATION AND COUNSELING
The patient was informed about the natural healing process and post-procedural care, specifically the wet-to-dry dressing changes to promote healing.
FOLLOW-UP INSTRUCTIONS
Follow-up with her surgeon as previously arranged for outpatient care.
MEDICAL DECISION MAKING
- Number and Complexity of Problems Addressed: Chronic conditions affecting care include the post-procedural drainage of the abdominal wall abscess. Differential Diagnosis: Post-operative wound infection, recurrent abscess, cellulitis, fistula
formation, wound dehiscence, hematoma, seroma, necrotizing fasciitis, foreign body reaction, granulomatous inflammation.
- Data:
Category 3: Discussion of management with the surgeon regarding outpatient care continuation.
- Risk: Prescription medication management was not required, and the patient presented non-toxic with no acute signs warranting escalation of care. The decision to discharge was based on stable condition and reliable outpatient follow-up.
Care significantly affected by Social Determinants of Health: History of smoking but quit successfully five years ago, improving recovery outlook.
DIAGNOSIS
Post-procedural drainage of abdominal abscess (ICD-10: L02.229).
*Pulse Oximetry
SaO2: 94
Oxygen Mode of Delivery: Room air
Patient hypoxic: no
*Critical Care Note
Total Time (30-74mins, 75-104mins- exclusive of procedures): Not Applicable
ED Attending Note
-
Portions of this chart may have been created with voice recognition software.� Occasional wrong word or��sound alike� substitutions may have occurred due to the inherent limitations of voice recognition software.
Discharge Plan
Departure
Patient Disposition: Home (Routine Discharge)
Date of Disposition: 06/21/25
Time of Disposition: 16:31
Patient with high blood pressure during this ER visit?: No
Discharge Problem:
Abdominal abscess
Instructions: Skin Abscess
Prescriptions:
No Action
pantoprazole 40 MG tablet,delayed release (DR/EC)
40 mg PO BID
aspirin 81 mg Tablet,Delayed Release (Dr/Ec)
81 mg PO DAILY
ferrous sulfate 142 mg (45 mg iron) Tablet Extended Release
142 mg PO Q48H
carvedilol 12.5 mg Tablet
6.25 mg PO BID
furosemide [Lasix] 20 mg Tablet
20 mg PO DAILY
cholecalciferol (vitamin D3) [Vitamin D3] 25 mcg (1,000 unit) Tablet
25 mcg PO DAILY
sacubitril-valsartan 24-26 mg Tablet
1 tab PO BID Qty: 60 0RF
acetaminophen [Tylenol] 325 mg Tablet
650 mg PO Q6HPRN PRN (Reason: mild pain)
sucralfate [Carafate] 1 gram Tablet
1 g PO ACHS
zinc oxide 20 % Ointment
1 applic TOPICAL BID
magnesium hydroxide [Milk of Magnesia] 400 mg/5 mL Suspension
2,400 mg PO [id number] PRN (Reason: constipation)
bisacodyl [Dulcolax (bisacodyl)] 10 mg Suppository
10 mg AK DAILYPRN PRN (Reason: if no bm aftr mom)
Fleet Enema 19-7 gram/118 mL Enema
118 ml AK DAILYPRN PRN (Reason: if no bm aftr dulcolax)
metronidazole 500 mg Tablet
500 mg PO BID 11 Days Qty: 22 0RF
ciprofloxacin HCl 500 mg Tablet
500 mg PO BID 11 Days Qty: 22 0RF
mirtazapine 7.5 mg Tablet
7.5 mg PO HS Qty: 0 0RF
Referrals:
Jesse Brown MD [Active, Surgical]
Activity Restrictions/Additional Instructions:
Please return for any worsening symptoms.
You may return at any time if you have further concerns.
The surgeon, Dr. Brown, is aware of the abscess and the drainage. He recommended wet-to-dry dressing changes and following up with him at first available appointment. Please call.
Thank you for choosing [facility].
Interventions
Interventions:
*Risk Screen - Suicide Last Done: 06/21/25 16:16
*General Assessment Last Done: 06/21/25 16:16
*Neglect/Abuse Screening Last Done: 06/21/25 16:16
Discharge Date and Time
Print Language: MONGOLIAN
== END 2025-06-21 17:45 | disposition home or self-care (01) ==
LOC: EMR 16:12
PROVIDERS: EMERGENCY PHYSICIAN Student in an Organized Health Care Education/Training Program; FAMILY PHYSICIAN Family Medicine
DX: L02.211 Cutaneous abscess of abdominal wall (principal); I25.10 Atherosclerotic heart disease of native coronary artery without angina pectoris; I10 Essential (primary) hypertension; E78.00 Pure hypercholesterolemia, unspecified; K21.9 Gastro-esophageal reflux disease without esophagitis; D50.9 Iron deficiency anemia, unspecified; K27.9 Peptic ulcer, site unspecified, unspecified as acute or chronic, without hemorrhage or perforation; Z79.82 Long term (current) use of aspirin; Z87.891 Personal history of nicotine dependence
CPT/HCPCS: 99283

== ENCOUNTER → 2025-06-30 08:14 | Outpatient (REF) | payer OTHER, SELFPAY | LOC: WOUND 08:14 | PROVIDERS: ATTENDING PHYSICIAN Surgery; FAMILY PHYSICIAN Emergency Medicine | DX: S31.109A Unspecified open wound of abdominal wall, unspecified quadrant without penetration into peritoneal cavity, initial encounter (principal); K94.12 Enterostomy infection; K31.84 Gastroparesis; E43 Unspecified severe protein-calorie malnutrition; Y83.8 Other surgical procedures as the cause of abnormal reaction of the patient, or of later complication, without mention of misadventure at the time of the procedure; Y73.8 Miscellaneous gastroenterology and urology devices associated with adverse incidents, not elsewhere classified | CPT/HCPCS: 99203 ==

== ENCOUNTER → 2025-07-07 10:18 | Outpatient (REF) | payer OTHER, SELFPAY | LOC: WOUND 10:18 | PROVIDERS: ATTENDING PHYSICIAN Surgery; FAMILY PHYSICIAN Emergency Medicine | DX: S31.109A Unspecified open wound of abdominal wall, unspecified quadrant without penetration into peritoneal cavity, initial encounter (principal); K94.12 Enterostomy infection; K31.84 Gastroparesis; E43 Unspecified severe protein-calorie malnutrition; X58.XXXA Exposure to other specified factors, initial encounter | CPT/HCPCS: 11042 ==

== ENCOUNTER 2025-07-14 09:57 | Outpatient (REF) | payer OTHER, SELFPAY | END 2025-07-14 13:59 | disposition home or self-care (01) | LOC: WOUND 09:57 | PROVIDERS: ATTENDING PHYSICIAN Surgery; FAMILY PHYSICIAN Emergency Medicine | DX: S31.109A Unspecified open wound of abdominal wall, unspecified quadrant without penetration into peritoneal cavity, initial encounter (principal); K94.12 Enterostomy infection; K31.84 Gastroparesis; E43 Unspecified severe protein-calorie malnutrition; Y84.8 Other medical procedures as the cause of abnormal reaction of the patient, or of later complication, without mention of misadventure at the time of the procedure | CPT/HCPCS: 99213 ==

== ENCOUNTER 2025-07-20 09:33 | Outpatient (REF) | payer OTHER, SELFPAY | END 2025-07-20 23:59 | disposition home or self-care (01) | LOC: WOUND 09:33 | PROVIDERS: ATTENDING PHYSICIAN Surgery; FAMILY PHYSICIAN Emergency Medicine | DX: S31.109A Unspecified open wound of abdominal wall, unspecified quadrant without penetration into peritoneal cavity, initial encounter (principal); K94.12 Enterostomy infection; K31.84 Gastroparesis; E43 Unspecified severe protein-calorie malnutrition; Y84.8 Other medical procedures as the cause of abnormal reaction of the patient, or of later complication, without mention of misadventure at the time of the procedure; Y73.8 Miscellaneous gastroenterology and urology devices associated with adverse incidents, not elsewhere classified | CPT/HCPCS: 11042 ==

== ENCOUNTER 2025-07-28 23:50 | Inpatient (IN) | payer OTHER, SELFPAY ==
[2025-07-28 13:31] VITALS: BP 147/76
[2025-07-28 18:00] VITALS: BP 110/57
[2025-07-28 18:01] VITALS: BMI 15.5
[2025-07-28 18:02] VITALS: BP 110/57
[2025-07-28 19:17] VITALS: BP 119/60
[2025-07-28] MEDS: OMNIPAQUE 50 ML PO (20:02)
[2025-07-28] MEDS: ZOSYN 100 IV (20:02)
--- NOTE | 2025-07-28 20:04 | ED.GENMED ---
History of Present Illness
<Christiano Bar Jr., PA-C - Last Filed: 07/28/25 23:28>
General
Chief Complaint: Skin Problem
Source: patient and spouse
Exam Limitations: none
Time Seen by Provider: 07/28/25 18:35
Nursing documentation reviewed up to this point in time: agreed with
History of Present Illness
History of Present Illness:
74-year-old female past medical history of CHF CAD hypertension presenting to the emergency department today with concerns of worsening purulent drainage to her left lower quadrant of her abdomen and a previous site of J-tube. Does a wound VAC in
place that does not seem to be working properly. She did contact her wound care team they told her to go to the ER today. They were concerned for worsening infection. Claims that pain at the area as well. Denies significant fevers. Denies
vomiting changes in bowel movements
Past History
<Christiano Bar Jr., PA-C - Last Filed: 07/28/25 23:28>
Past History
ED Past Medical History: CAD, GERD, HTN, Hypercholesterolemia and Other (Iron deficiency anemia, peptic ulcer disease)
ED Past Surgical History: Cholecystectomy and Other (Partial gastrectomy)
Social History
Tobacco: Smoker
Alcohol: None
Drug: None
Personal:
Living: with family
Review of Systems
<Christiano Bar Jr., PA-C - Last Filed: 07/28/25 23:28>
Review of Systems
Allergies reviewed?: Yes
All Other Systems: ROS reviewed and negative except as documented in HPI and ROS
Phy Exam
<CATALINA Dawson Jr. Last Filed: 07/28/25 23:28>
Physical Exam
Physical Exam:
GENERAL: Alert , in no apparent distress
EYE: pupils equal and reactive
NECK: Supple, no significant adenopathy.
ENT: o/p clr, mmm.
CARDIAC: Regular rate and rhythm .
LUNGS: Clear breath sounds bilaterally, no acute respiratory distress, no wheezes/rales/rhonchi
ABDOMEN: Yellow-green foul-smelling purulent drainage from the J-tube site left lower quadrant of the abdomen wound VAC not currently functioning. Soft, without focal tenderness, no r/g, no cvat
NEUROLOGICAL: Alert and oriented, no focal neuro deficits
SKIN: Warm and dry, skin intact.
MUSCULOSKELETAL: No edema, well perfused.
PSYCH: Normal and appropriate interaction.
Course
<Christiano Bar Jr., PA-C - Last Filed: 07/28/25 23:28>
Orders/Labs/Results
Orders:
Orders
07/28/25 19:13
Piperacillin/Tazo 4.5 Gram [Zosyn] 4.5 gram in 100 ml IV NOW
07/28/25 19:14
Vancomycin 1 Gram/200 ml [Vancocin] 1 gram in 200 ml IV NOW
07/28/25 19:23
CT Abd/pel W Iv And Oral Contr Urgent
Comment:
Reason For Exam: llq abscess from previous Jtube site
Iohexol [Omnipaque] See Protocol PO NOW STA
07/28/25 19:28
Piperacillin/Tazo 4.5 Gram [Zosyn] 4.5 gram in 100 ml IV NOW
07/28/25 19:29
Vancomycin 1 Gram/200 ml [Vancocin] 1 gram in 200 ml IV NOW
07/28/25 20:04
CBC/With Diff [Complete Blood Count/With Diff] Urgent
CMP [Comprehensive Metabolic Panel] Urgent
Lactic Acid Urgent
Blood Culture Q30M
[place] Source: Blood/Venous
Specimen Description:
Blood Culture Q30M
[place] Source: Blood/Venous
Specimen Description:
Wound Culture [Wound/Abscess/Other Culture] Urgent
[place] Source: Abdomen
Specimen Description:
Date Specimen was Collected: 07/28/25
Time Specimen was Collected: 19:16
Abnormal Lab Results
07/28/25
20:04
WBC 4.1 L 10^3/uL
(4.8-10.8)
RBC 3.39 L 10^6/uL
(4.20-5.40)
Hgb 8.7 L g/dL
(12.0-16.0)
Hct 30.9 L %
(37.0-47.0)
MCH 25.7 L pg
(27.0-31.0)
MCHC 28.2 L g/dL
(33.0-37.0)
RDW 25.0 H %
(11.5-14.5)
Absolute Lymphs (auto) 0.6 L 10^3/uL
(1.2-3.4)
Neutrophils % 77.6 H %
(42.2-75.2)
Lymphocytes % 15.5 L %
(20.5-51.1)
Potassium 3.4 L mmol/L
(3.5-5.1)
Carbon Dioxide 32 H mmol/L
(22-30)
BUN 28 H mg/dl
(7-17)
Total Protein 5.9 L g/dl
(6.3-8.2)
Albumin 3.0 L g/dl
(3.5-5.0)
07/28/25 20:04
07/28/25 20:04
Vital Signs
Initial and Last Documented VS:
Initial Vital Signs
Temp Pulse Resp BP Pulse Ox
97.7 F 70 16 147/76 99
07/28/25 13:31 07/28/25 13:31 07/28/25 13:31 07/28/25 13:31 07/28/25 13:31
Last Documented Vital Signs
Temp Pulse Resp BP Pulse Ox
98.6 F 63 16 119/60 96
07/28/25 18:02 07/28/25 18:02 07/28/25 18:02 07/28/25 19:17 07/28/25 20:04
<Alba Dias MD - Last Filed: 07/28/25 20:08>
Orders/Labs/Results
Orders:
Orders
07/28/25 19:13
Piperacillin/Tazo 4.5 Gram [Zosyn] 4.5 gram in 100 ml IV NOW
07/28/25 19:14
Vancomycin 1 Gram/200 ml [Vancocin] 1 gram in 200 ml IV NOW
07/28/25 19:23
CT Abd/pel W Iv And Oral Contr Urgent
Comment:
Reason For Exam: llq abscess from previous [facility] [place] site
Iohexol [Omnipaque] See Protocol PO NOW STA
07/28/25 19:28
Piperacillin/Tazo 4.5 Gram [Zosyn] 4.5 gram in 100 ml IV NOW
07/28/25 19:29
Vancomycin 1 Gram/200 ml [Vancocin] 1 gram in 200 ml IV NOW
07/28/25 20:04
CBC/With Diff [Complete Blood Count/With Diff] Urgent
CMP [Comprehensive Metabolic Panel] Urgent
Lactic Acid Urgent
Blood Culture Q30M
[place] Source: Blood/Venous
Specimen Description:
Blood Culture Q30M
[place] Source: Blood/Venous
Specimen Description:
Wound Culture [Wound/Abscess/Other Culture] Urgent
[place] Source: Abdomen
Specimen Description:
Date Specimen was Collected: 07/28/25
Time Specimen was Collected: 19:16
Abnormal Lab Results
07/28/25
20:04
WBC 4.1 L 10^3/uL
(4.8-10.8)
RBC 3.39 L 10^6/uL
(4.20-5.40)
Hgb 8.7 L g/dL
(12.0-16.0)
Hct 30.9 L %
(37.0-47.0)
MCH 25.7 L pg
(27.0-31.0)
MCHC 28.2 L g/dL
(33.0-37.0)
RDW 25.0 H %
(11.5-14.5)
Absolute Lymphs (auto) 0.6 L 10^3/uL
(1.2-3.4)
Neutrophils % 77.6 H %
(42.2-75.2)
Lymphocytes % 15.5 L %
(20.5-51.1)
Potassium 3.4 L mmol/L
(3.5-5.1)
Carbon Dioxide 32 H mmol/L
(22-30)
BUN 28 H mg/dl
(7-17)
Total Protein 5.9 L g/dl
(6.3-8.2)
Albumin 3.0 L g/dl
(3.5-5.0)
07/28/25 20:04
07/28/25 20:04
Vital Signs
Initial and Last Documented VS:
Initial Vital Signs
Temp Pulse Resp BP Pulse Ox
97.7 F 70 16 147/76 99
07/28/25 13:31 07/28/25 13:31 07/28/25 13:31 07/28/25 13:31 07/28/25 13:31
Last Documented Vital Signs
Temp Pulse Resp BP Pulse Ox
98.6 F 63 16 119/60 96
07/28/25 18:02 07/28/25 18:02 07/28/25 18:02 07/28/25 19:17 07/28/25 20:04
<Christiano Bar Jr., PA-C - Last Filed: 07/28/25 23:28>
MDM/Problems Addressed
MDM/Problems Addressed:
74-year-old female presenting to the emergency department with concerns of worsening purulence and discomfort at previous J-tube site. Wound VAC not currently functioning. Patient with white count 4.1. CT scan showing abdominal wall abscess.
Patient has had similar symptoms in the past. She does claim that this is significantly worsened over the past day plan to treat with IV antibiotics and admit for further monitoring.
<Christiano Bar Jr., PA-C - Last Filed: 07/28/25 23:28>
*Pulse Oximetry
SaO2: 96
Oxygen Mode of Delivery: Room air
Patient hypoxic: no (96)
*Critical Care Note
Total Time (30-74mins, 75-104mins- exclusive of procedures): Not Applicable
ED Attending Note
<Christiano Bar Jr., PA-C - Last Filed: 07/28/25 23:28>
-
Portions of this chart may have been created with voice recognition software.� Occasional wrong word or��sound alike� substitutions may have occurred due to the inherent limitations of voice recognition software.
<Alba Dias MD - Last Filed: 07/28/25 20:08>
ED Attending Note
Patient seen and examined by attending physician: Yes
I performed the substantive portion of visit, reviewed & personally made and approve the management plan that is documented in note by myself or ARINA.: Yes
ED Attending Note:
74-year-old female with complicated prior medical history, recent abdominal abscess, just discharged from rehab with noted foul-smelling drainage from her J-tube wound and an operable wound VAC. Patient denies fever, nausea, vomiting. On exam
patient is very thin/cachectic and tired appearing. J-tube site with foul-smelling mild drainage, minimal tenderness to palpation, no surrounding erythema or warmth. Patient will be admitted for IV antibiotics, further assessment with CT to rule
out intra-abdominal abscess/fistula, etc.
Discharge Plan
Departure
Patient Disposition: Admit
Date of Disposition: 07/28/25
Time of Disposition: 23:12
Admit to: Med/Surg
Admit to doctor: Henry
Presentation/result/management discussed w/ accepting MD/DO: Hospitalist
Patient with high blood pressure during this ER visit?: No
Condition: Good
Covid-19: Not Applicable
Discharge Problem:
Abdominal wall abscess
Prescriptions:
No Action
pantoprazole 40 MG tablet,delayed release (DR/EC)
40 mg PO BID
aspirin 81 mg Tablet,Delayed Release (Dr/Ec)
81 mg PO DAILY
ferrous sulfate 142 mg (45 mg iron) Tablet Extended Release
142 mg PO Q48H
carvedilol 12.5 mg Tablet
6.25 mg PO BID
furosemide [Lasix] 20 mg Tablet
20 mg PO DAILY
cholecalciferol (vitamin D3) [Vitamin D3] 25 mcg (1,000 unit) Tablet
25 mcg PO DAILY
sacubitril-valsartan 24-26 mg Tablet
1 tab PO BID Qty: 60 0RF
acetaminophen [Tylenol] 325 mg Tablet
650 mg PO Q6HPRN PRN (Reason: mild pain)
mirtazapine 7.5 mg Tablet
7.5 mg PO HS Qty: 0 0RF
hydroxyurea 500 mg Capsule
500 mg PO BID
ammonium lactate 12 % Lotion
1 applic TOPICAL BID
loperamide 2 mg Capsule
2 mg PO Q6H PRN (Reason: diarrhea)
tramadol 50 mg Tablet
50 mg PO HS
tramadol 50 mg Tablet
50 mg PO Q6H PRN (Reason: b/l arm pain)
Referrals:
Machelle Franklin DO [Family Provider]
Interventions
Interventions:
*Risk Screen - Suicide Last Done: 07/28/25 13:31
*General Assessment Last Done: 07/28/25 18:02
*Neglect/Abuse Screening Last Done: 07/28/25 18:02
*ED- Fall Risk Assessment Last Done: 07/28/25 18:02
*ED COVID-19 Vaccine History Last Done: 07/28/25 18:02
*ED Influenza Vaccine History Last Done: 07/28/25 18:02
ED-Skin Assessment Last Done: 07/28/25 18:02
Discharge Date and Time
Print Language: YAKUT
[2025-07-28 20:29] LABS: Hematocrit 30.9 % (37.0-47.0); Hemoglobin 8.7 g/dL (12.0-16.0); Mean Corp Hgb Conc. 28.2 g/dL (33.0-37.0); Mean Corpuscular Volume 91.2 fL (81.0-99.0); Nucleated Red Blood Cells % 0 %; Platelet Count 305 10^3/uL (130-400); Red Cell Dist. Width 25.0 % (11.5-14.5)
[2025-07-28 20:32] LABS: Anisocytosis 2+; Hypochromasia 2+; Normal RBC Morphology No
[2025-07-28] MEDS: VANCOCIN 200 IV (20:32)
[2025-07-28 20:34] LABS: Macrocytosis 1+; Microcytosis 1+
[2025-07-28 20:44] LABS: ALT (SGPT) 12 U/L (0-35); AST (SGOT) 14 U/L (14-36); Albumin 3.0 g/dl (3.5-5.0); Alkaline Phosphatase 95 U/L (38-126); Blood Urea Nitrogen 28 mg/dl (7-17); Calcium 8.9 mg/dl (8.4-10.2); Carbon Dioxide 32 mmol/L (22-30); Chloride 102 mmol/L (98-107); Estimated Creatinine Clearance 54 ml/min; Glucose 76 mg/dl (70-99); Potassium 3.4 mmol/L (3.5-5.1); Sodium 140 mmol/L (135-145); Total Protein 5.9 g/dl (6.3-8.2); eGFR > 60.00
--- NOTE | 2025-07-28 23:11 | HPS.HSE ---
Addendum entered and electronically signed by Nithin Figueroa DO 07/29/25 00:12:
Patient seen and examined independently. Agree with findings and plan as set forth by BEBETO Chopra.
Patient is a 74y F with PMH significant for gastric cancer, prior partial gastrectomy and J-tube site infection / abscess who presents to ED for evaluation of chronic abdominal wound / wound vac malfunction. Patient states that her wound vac
started alarming yesterday and has continued to do so. Vac was initially placed a few weeks ago. Family noted purulent drainage / 'crusty' material around tube site. Patient spoke with her PCP who recommended she present to the ED for further
evaluation.
Patient notes some tenderness around the wound. No fevers / chills. No N/V/D. She has been constipated with last PM > 1 week ago.
Ass:
Chronic Abdominal Wall Abscess / J-tube Site Infection
Wound Vac Malfunction
Gastric Cancer
s/p Partial Gastrectomy
Malnutrition
Constipation
Anemia of Chronic Disease
Chronic HFrEF
ASCVD
Benign Hypertension
Plan:
Admit for further evaluation and treatment.
Continue IV abx with Zosyn for now based on increased thick / purulent drainage and prior culture data.
Wound Care eval for vac replacement / additional recommendations.
CT done in the ED this evening shows continued improvement in the wound / abscess from prior images.
Bowel regimen including enema this evening for severe constipation +/- stercoral colitis.
Continue other usual chronic medications for CV disease, etc.
Follow for new / worsening symptoms, development of fever, etc.
Original Note:
Family Physician
-
Family Physician: Machelle Franklin DO
Chief Complaint
-
pus drainage
History of Present Illness
74-year-old female past medical history of CHF CAD hypertension, partial gastrectomy with GJ placed on 04/28/2025 de to malnutrition presenting to the emergency department today with concerns of worsening purulent drainage to her left lower quadrant
of her abdomen and a previous site of J-tube. GJ tube fell off on 04/28 and catheter fell off on 05/28 and it was not replaced due to purulent drainage. she was followed by wound care. wound care placed wound vac few weeks ago, which stopped working
last night. the noticed purulent drainage around the wound vac. She did contact her wound care team they told her to go to the ER today. denied fever, chills, chest pain, sob. denied VIERA< dizzy or syncope. denied abdominal pain,n,v. she did
not have bowel movement since thursday. denied dysuria or hematuria.
Medical History
Past Medical History
Past Medical History: Reports Other
Additional Past Medical History:
anemia, enterostomy infection, left bundle branch block, mitral insufficiency, bells palsy,
Past Surgical History: Reports Other
Additional Past Surgical History:
cholecystectomy, surgery of ulcerated stomach and small intestine
Social History
Tobacco: Non-smoker
Alcohol: None
Drug: None
Personal:
Living: With Family
Family History
Family History: Not pertinent
Allergies / Home Medications
Allergies reflects when Allergies were last updated in [facility].
Home Medications with original date entered in [facility]
Allergy/Medication List:
Allergies
Allergy/AdvReac Type Severity Reaction Status Date / Time
No Known Allergies Allergy Verified 06/07/25 13:18
Home Medications
pantoprazole 40 mg tablet,delayed release 40 mg PO BID Gastrointestinal Issue 01/23/23
aspirin 81 mg tablet,delayed release 81 mg PO DAILY Heart Disease/Condition 10/08/23
ferrous sulfate 142 mg (45 mg iron) tablet,extended release 142 mg PO Q48H Supplement 10/08/23
carvedilol 12.5 mg tablet 6.25 mg PO BID Blood Pressure 11/01/24
furosemide 20 mg tablet (Lasix) 20 mg PO DAILY Heart Failure 11/01/24
cholecalciferol (vitamin D3) 25 mcg (1,000 unit) tablet (Vitamin D3) 25 mcg PO DAILY Supplement 04/20/25
sacubitril 24 mg-valsartan 26 mg tablet 1 tab PO BID #60 tabs 06/01/25
acetaminophen 325 mg tablet (Tylenol) 650 mg PO Q6HPRN PRN mild pain 06/07/25
mirtazapine 7.5 mg tablet 7.5 mg PO HS #0 tabs 06/11/25
ammonium lactate 12 % lotion 1 applic topical BID dry skin 07/28/25
hydroxyurea 500 mg capsule 500 mg PO BID 07/28/25
loperamide 2 mg capsule 2 mg PO Q6H PRN diarrhea 07/28/25
tramadol 50 mg tablet 50 mg PO HS 07/28/25
tramadol 50 mg tablet 50 mg PO Q6H PRN b/l arm pain 07/28/25
Review of Systems
-
Constitutional: Reports No Symptoms
EENT: Reports No Symptoms
Respiratory: Reports No Symptoms
Cardiac: Reports No Symptoms
Abdomen/GI: Reports No Symptoms
: Reports No Symptoms
Musculoskeletal: Reports No Symptoms
Skin: Reports Other (purulent drainage)
Neurological: Reports No Symptoms
Endocrine: Reports No Symptoms
Hematologic/Lymphatic: Reports No Symptoms
Psych: Reports No Symptoms
Physical Exam
Vital Signs
Vital Signs
Temp Pulse Resp BP Pulse Ox
98.6 F 63 16 119/60 96
07/28/25 18:02 07/28/25 18:02 07/28/25 18:02 07/28/25 19:17 07/28/25 20:04
Physical Exam
General: Well Developed, Well Nourished and No Apparent Distress
HEENT: NormoCephalic, Moist mucous membranes and Atraumatic
Respiratory: Clear
Cardiac: S1/S2 and Regular Rhythm; No Murmur or Rub
GI: Soft, Non Tender, Non Distended and Normal Bowel Sounds; No Organomegaly
Rectal: Deferred by Provider
Musculoskeletal: No Clubbing, No Cyanosis and No Edema
Skin: Rash and Other (thick purulent drainage from GJ site)
Neuro: AO x 3 and Nonfocal/grossly intact
Psych: Calm
Laboratory Results
-
07/28/25 20:04
07/28/25 20:04
Laboratory Results
Lactic Acid 1.0 mmol/L (0.7-2.0) 07/28/25 20:04
Total Bilirubin 0.2 mg/dl (0.2-1.3) 07/28/25 20:04
AST 14 U/L (14-36) 07/28/25 20:04
ALT 12 U/L (0-35) 07/28/25 20:04
Alkaline Phosphatase 95 U/L (38-126) 07/28/25 20:04
Data Reviewed
-
Lab Data: Labs Reviewed by me
Impression/Plan
-
#abdominal abscess/infection at J tube site
#Partial gastrectomy Billroth II gastrojejunostomy/ Had J-tube placed on 04/28/2025 due to cachexia, weight loss, gastroparesis, low-grade dysplasia and ulceration at anastomosis
# Constipation, stercoral colitis
Jtube fell out 05/17, rubber catheter fell out 05/28 and not replaced due to purulent drainage
-wbc 4.1
-iv Zosyn continued
-Tylenol prn for fever and pain
-milk of molasses for constipation
-senna, Colace and miralax continued
-Blood culture sent from ER, wound culture sent from ER
-wound care consulted
-CT abdomen pelvis with There is a small air and fluid collection within the central and left anterior paramedian anterior abdominal wall, decreased in size since examination of June 07, 2025. This probably represents a small residual abscess.No
evidence for extension of oral contrast into this collection.Status post Billroth II gastrojejunostomy. There is no evidence for bowel obstruction. There is no evidence for free intraperitoneal air.Moderate bilateral subcutaneous edema within the
abdomen and pelvis.Status post cholecystectomy. Prominence of intrahepatic bile ducts with mild dilation of the common hepatic duct and top normal caliber of the common bile duct within the superior and the pancreas.Hepatomegaly. No evidence of a
focal hepatic lesion.Patchy areas of scarring involving both kidneys.Moderate to large amount of stool within the colon. Rectum is moderately distended with suggestion of mild to moderate circumferential rectal wall thickening. Findings suggest the
possibility of stercoral colitis. No evidence for perforation.
#anemia of chronic disease
-hgb 8.7, no active bleeding
-ctm
- Ferrous sulfate continue
#hypokalemia
-k 3.4, oral kcl
#Severe protein calorie malnutrition due to chronic illness/gastroparesis
-Has been eating regular diet with Ensure twice daily
- Patient is on Remeron for appetite
#hxt of GI ulceration proximal jejunum
#Catalan's esophagus/GERD
Continue Carafate 1 g p.o. ACHS, Protonix 40 mg twice daily
#Heart failure reduced EF
#TTE 04/08/2024 with EF 35-40%
Continue Entresto and Lasix
#HTN
Continue carvedilol 6.25 mg p.o. twice daily with hold parameters
#CAD
-Aspirin continue
#Arthritis
- Tramadol continued
#Chronic ambulatory dysfunction
PT/OT
DVT prophylaxis - SCDs
DNR
[2025-07-28 23:33] VITALS: BP 119/57
[2025-07-28] MEDS: KCL ELIXIR 40 MEQ PO (23:52)
[2025-07-29 02:22] VITALS: BP 134/89; BMI 14.7
[2025-07-29 02:56] VITALS: BMI 14.7
[2025-07-29] MEDS: COLACE 100 MG PO ×3 (03:11→21:09)
[2025-07-29] MEDS: SENOKOT 8.6 MG PO ×3 (03:11→21:08)
[2025-07-29] MEDS: ZOSYN 50 IV ×4 (03:11→21:13)
[2025-07-29 07:45] VITALS: BP 148/76
[2025-07-29 08:13] LABS: Hematocrit 28.1 % (37.0-47.0); Hemoglobin 8.2 g/dL (12.0-16.0); Mean Corp Hgb Conc. 29.2 g/dL (33.0-37.0); Mean Corpuscular Volume 88.4 fL (81.0-99.0); Platelet Count 303 10^3/uL (130-400); Red Cell Dist. Width 25.0 % (11.5-14.5)
[2025-07-29 09:21] LABS: Blood Urea Nitrogen 26 mg/dl (7-17); Calcium 8.9 mg/dl (8.4-10.2); Carbon Dioxide 30 mmol/L (22-30); Chloride 100 mmol/L (98-107); Estimated Creatinine Clearance 51 ml/min; Glucose 70 mg/dl (70-99); Potassium 3.8 mmol/L (3.5-5.1); Sodium 135 mmol/L (135-145); eGFR > 60.00
[2025-07-29] MEDS: PROTONIX 40 MG PO ×2 (09:47→21:08)
[2025-07-29] MEDS: ULTRAM 50 MG PO ×2 (09:47→21:11)
[2025-07-29] MEDS: ENTRESTO 24 MG/26 MG 1 TAB PO ×2 (09:47→21:09)
[2025-07-29] MEDS: ASPIR LOW (ENTERIC COATED) 81 MG PO (09:47)
[2025-07-29] MEDS: FEOSOL 325 MG PO (09:47)
[2025-07-29] MEDS: HYDREA 500 MG PO ×2 (09:47→21:09)
[2025-07-29] MEDS: LASIX 20 MG PO (09:48)
[2025-07-29] MEDS: COREG 6.25 MG PO ×2 (09:48→21:09)
[2025-07-29] MEDS: MIRALAX 17 GRAMS PO (09:48)
[2025-07-29] MEDS: VITAMIN D3 (cholecalciferol) 25 MCG PO (09:48)
--- NOTE | 2025-07-29 09:58 | W.PN.HOSP.TC ---
Today's Communication/Plan
-
IV Zosyn
ID Consult
wound care consult (Thursday)
Assessment / Plan
Assessment / Plan
Ms. Nica Lopez is a 74 yo woman with hx PUD s/p partial gastrectomy and Billroth II anastomosis 1999, with recent suspected gastric cancer of anastomotic ulcer, s/p J tube placement 05/02/25, recent admission 05/17- 06/01/25 for septic shock 10/02
enteritis and infected fluid collection near J-tube site s/p J tube removal, UGIB in setting of known ulcers, re-admitted 06/07-06/11/25 for abdominal wall abscess near prior J-tube site (discharged on Cipro/Flagyl through 06/21/25) represents for
evaluation of chronic abdominal wound and wound vac malfunction. Family noted purulent drainage around tube site.
Abdomen/Pelvis CT
IMPRESSION: There is a small air and fluid collection within the central and left anterior paramedian anterior abdominal wall, decreased in size since examination of June 07, 2025. This probably represents a small residual abscess.
No evidence for extension of oral contrast into this collection.
Status post Billroth II gastrojejunostomy. There is no evidence for bowel obstruction. There is no evidence for free intraperitoneal air.
Moderate bilateral subcutaneous edema within the abdomen and pelvis.
Status post cholecystectomy. Prominence of intrahepatic bile ducts with mild dilation of the common hepatic duct and top normal caliber of the common bile duct within the superior and the pancreas.
Hepatomegaly. No evidence of a focal hepatic lesion.
Patchy areas of scarring involving both kidneys.
Moderate to large amount of stool within the colon. Rectum is moderately distended with suggestion of mild to moderate circumferential rectal wall thickening. Findings suggest the possibility of stercoral colitis. No evidence for perforation.
Residual Abdominal abscess/infection at J tube site
Partial gastrectomy Billroth II gastrojejunostomy/ Had J-tube placed on 04/28/2025 due to cachexia, weight loss, gastroparesis, low-grade dysplasia and ulceration at anastomosis
Admsisions 05/17-06/01/25 and 06/07-06/11/25 for J-tube tract infection
Jtube fell out 05/17 replaced rubber catheter fell out 05/28 during prior admission - not candidate for replacement per Dr. Brown, patient tolerating oral foods
-IV Zosyn
-Blood culture sent from ER, wound culture sent from ER
-wound care consulted
-ID consult
Constipation
-milk of molasses for constipation - patient refused
-BID Miralax, colaca, senna
-Dulcolax supp PRN
Aanemia of chronic disease
-hgb 8.7, no active bleeding
- Ferrous sulfate continue
#hypokalemia
-k 3.4, oral kcl
#Severe protein calorie malnutrition due to chronic illness/gastroparesis
-Has been eating regular diet with Ensure twice daily
- Patient is on Remeron for appetite
#hxt of GI ulceration proximal jejunum
#Catalan's esophagus/GERD
Continue Carafate 1 g p.o. ACHS, Protonix 40 mg twice daily
#Heart failure reduced EF
#TTE 04/08/2024 with EF 35-40%
Continue Entresto and Lasix
#HTN
Continue carvedilol 6.25 mg p.o. twice daily with hold parameters
#CAD
-Aspirin continue
#Arthritis
- Tramadol continued
#Chronic ambulatory dysfunction
PT/OT
DVT prophylaxis - SCDs
DNR
Anticipated Discharge: > 48 hours
Subjective/Interval History
-
Date of Service: July 29, 2025
no fevers
wound has persistent drainage
no pain
Objective Data
-
Labs:
Laboratory Results
07/29/25
07:51
WBC 4.1 L
Hgb 8.2 L
Hct 28.1 L
Plt Count 303
Sodium 135
Potassium 3.8
Chloride 100
Carbon Dioxide 30
BUN 26 H
Creatinine 0.6
Glucose 70
Calcium 8.9
Vital Signs:
Vital Signs
Temp Pulse Resp BP Pulse Ox
97.4 F 68 18 148/76 94
07/29/25 07:45 07/29/25 07:45 07/29/25 07:45 07/29/25 07:45 07/29/25 07:45
Review of Systems
-
History Source: Patient
All other systems: Reviewed and negative
Physical Exam
-
General: Well Developed, No Apparent Distress, Comfortable and Cachectic
HEENT: Normocephalic, Atraumatic and Moist Mucous Membranes
Respiratory: Clear to Auscultation; Negative Wheezes, Rales or Rhonchi
Cardiac: Regular Rhythm and S1/S2
GI: Soft, Nontender, Nondistended and Other (j-tube tract wound with purulent drainage, mild surrounding erythema )
Musculoskeletal: No Clubbing, No Cyanosis and No Edema
Skin: Warm and Dry
Neuro: Awake, Alert and Oriented
Psych: Calm
Data Reviewed
-
Diagnostic Radiology: Report Reviewed by me
Labs: Labs Reviewed by me
[2025-07-29 12:27] LABS: Magnesium 1.6 mg/dl (1.6-2.3)
[2025-07-29 12:39] VITALS: BP 120/66; PULSE 69
[2025-07-29 12:48] VITALS: BP 120/66; PULSE 66; O2SAT 96
[2025-07-29 13:11] VITALS: BMI 14.7
--- NOTE | 2025-07-29 14:21 | CON.ID ---
Consultation
-
Date/Time Consultation Requested: 07/29/2025 1020
Date/Time Consultation Performed: 07/29/2025 1415
Requesting Provider: Dr. Leach
Performing Provider: Dr. Jones
Reason for Consultation: Abdominal wall infection
Chief Complaint / Past History
Chief Complaint
drainage from previous J tube site
History of Present Illness
Nica Lopez is a 74-year-old female with a significant past medical history of PUD s/p partial gastrectomy and Billroth II anastomosis (1999), recent suspected gastric CA of anastomotic ulcer s/p J-tube placement (05/02/2025) being evaluated
regarding abdominal wall infection. History is obtained from chart review, along with patient interview, along with review of old records contained the hospital EMR system.
The patient is known to the ID service, having been seen during a hospitalization in early May during which time the patient was noted to have inflamed and indurated tissue at the previous G-tube site. The patient had a prior history of
Enterobacter cloacae and Klebsiella pneumoniae recovered from the abdominal wound in May, but abdominal cultures in May did not grow any bacteria. The patient ultimately was discharged home on 06/11, to continue with ciprofloxacin and
metronidazole through 06/21/2025
The patient presents back to [facility] on 07/28 following wound VAC malfunction. She reports that her wound VAC began alarming the day before. Additionally, family had noted purulent drainage and crusty material around her prior J-tube
site. Cultures from that area have been obtained. The patient has been started on empiric antibiotics (Zosyn) and Infectious Diseases is asked to comment upon further antimicrobial management.
At present, patient reports moderate abdominal discomfort (5/10). She denies any fevers or chills.
Past History
Additional Past Medical History:
PUD s/p partial gastretcomy and Billroth II anastomosis (1999), recent diagnosis gastric cancer s/p J tube placement 05/02/25
partial gastrectomy Billroth II gastrojejunostomy,
J-tube placement became infected adjacent to the jejunal cath J-tube fell out 05/17/2025
ulceration of the proximal jejunum loops 05/17/2025
anemia likely from ulceration at jejunum/iron deficiency requiring IV iron transfusions PRBC 05/17/2025 admission
gastroparesis
Catalan's esophagus
Essential thrombocytosis
GERD
PUD
HTN
CAD
HLD
Former smoker
Protein calorie malnutrition/cachexia
Chronic ambulatory dysfunction currently stands to transfer only
Additional Past Surgical History:
see above
Allergy History:
No Known Allergies Allergy (Verified 06/07/25 13:18)
Medications Reviewed: Yes
Current Antibiotics:
Zosyn 4.5 gm IV q.6 hours
Social History
Tobacco: Former Smoker
Alcohol: None
Drug: None
Personal:
Living: With Family
Employment: Not Employed
Family History
Family History: Not Pertinent
Review of Systems
Vital Signs
Temp Pulse Resp BP Pulse Ox
97.4 F 68 18 148/76 94
07/29/25 07:45 07/29/25 07:45 07/29/25 07:45 07/29/25 07:45 07/29/25 08:20
Physical Exam
Physical Exam
Constitutional: No Acute Distress, Comfortable, Chronically Ill, Non-toxic and Cachetic
Eyes: No Conjunctival Hemorrhage and Sclera Anicteric
Oral: No Thrush and No Ulcers
Cardiovascular: Regular Rate and S1/S2; Negative S3/S4
Pulmonary: Clear and Symmetric; Negative Wheezes, Rales or Rhonchi
Gastrointestinal: Soft, Tender (mild; periwound area), Non Distended and Normal Bowel Sounds
Genito-Urinary: Negative Dias
Extremities: Negative Edema, Cyanosis or Erythema
Skin: Warm and Dry; Negative Rash or Jaundice
Wound: Other (Abdominal wound ~1cm with mild purulent drainage.)
Neurological: Awake and Alert
Psychological: Calm
Lab / Diagnostic Study Results
07/29/25 07:51
07/29/25 07:51
Abs Immat Gran (auto) 0.0 10^3/uL (0-0.05) 07/28/25 20:04
Absolute Neuts (auto) 3.2 10^3/uL (1.4-6.5) 07/28/25 20:04
Absolute Lymphs (auto) 0.6 10^3/uL (1.2-3.4) L 07/28/25 20:04
Absolute Monos (auto) 0.1 10^3/uL (0.1-0.6) 07/28/25 20:04
Absolute Basos (auto) 0.0 10^3/uL (0-0.2) 07/28/25 20:04
Immature Gran % 0.5 % (0-0.5) 07/28/25 20:04
Neutrophils % 77.6 % (42.2-75.2) H 07/28/25 20:04
Lymphocytes % 15.5 % (20.5-51.1) L 07/28/25 20:04
Monocytes % 3.2 % (1.7-9.3) 07/28/25 20:04
Eosinophils % 3.0 % (0-6) 07/28/25 20:04
Basophils % 0.2 % (0-2) 07/28/25 20:04
Lactic Acid 1.0 mmol/L (0.7-2.0) 07/28/25 20:04
Microbiology Results
Micro:
07/28/25 20:04 Wound Culture - Pending
Abdomen Gram Stain - Preliminary
07/28/25 20:04 Blood Culture - Pending
Blood/Venous
07/28/25 20:04 Blood Culture - Pending
Blood/Venous
Imaging:
07/20/2025 CT abd/pel with IV / PO contrast: There is a small air and fluid collection within the central and left anterior paramedian anterior abdominal wall, decreased in size since examination of June 07, 2025. This probably represents a small
residual abscess. No evidence for extension of oral contrast into this collection. Status post Billroth II gastrojejunostomy. There is no evidence for bowel obstruction. There is no evidence for free intraperitoneal air. Moderate bilateral
subcutaneous edema within the abdomen and pelvis. Status post cholecystectomy. Prominence of intrahepatic bile ducts with mild dilation of the common hepatic duct and top normal caliber of the common bile duct within the superior and the pancreas.
Hepatomegaly. No evidence of a focal hepatic lesion. Patchy areas of scarring involving both kidneys. Moderate to large amount of stool within the colon. Rectum is moderately distended with suggestion of mild to moderate circumferential rectal
wall thickening. Findings suggest the possibility of stercoral colitis. No evidence for perforation. Please see full dictation for additional detail. Film personally viewed.
Assessment / Plan
Abdominal wall wound
VAC malfunction
Hx prior J-tube
PUD s/p partial gastretcomy and Billroth II anastomosis (1999)
Anemia
Gastroparesis
Catalan's esophagus
Essential thrombocytosis
GERD
PUD
HTN
CAD
HLD
Former smoker
Protein calorie malnutrition/cachexia
Chronic ambulatory dysfunction currently stands to transfer only
Recommendations:
Continue with empiric Zosyn. Change to 3.375 gm IV q.6 hours.
Await repeat wound culture.
Local care to the wound; follow-up for ongoing drainage.
Monitor white count and temperature curve.
Further recommendations as additional data is returned.
[2025-07-29 15:26] VITALS: BP 109/70
--- NOTE | 2025-07-29 15:36 | CM ---
IA completed. IMM given on 07/28 in admissions. Met with pt and bedside. Lives with and 2 adult sons in a 1 level home with a basement.There are 2 steps at the entrance to the home. No insecurities identified. Confirmed PCP, Rx,
insurance, and drug coverage
PCP: Uday Franklin
Rx: [facility]
No hx of home O2 or HH
Hx of SNF at [facility] where they were very pleased with the care she received
Pt needs assistance with feeding, dressing and bathing/showering. Has arthritis that has deformed her hands and fingers making ADLs very difficult perform
DME: has rolling walker, cane and wheelchair. Only use the wheelchair now. Also have a commode chair and toilet rails
Pt comes to the hospital 2 days after being discharged from [facility] with infection. Currently on IV ABX
Plan: TBD after evaluations are completed
[2025-07-29] MEDS: REMERON 7.5 MG PO (21:14)
[2025-07-29 23:24] VITALS: BP 121/60
[2025-07-30] MEDS: ZOSYN 50 IV ×2 (03:05→10:02)
[2025-07-30 05:56] VITALS: BMI 14.7
[2025-07-30 07:15] VITALS: BP 113/60
[2025-07-30] MEDS: HYDREA 500 MG PO ×2 (07:53→20:44)
[2025-07-30] MEDS: ENTRESTO 24 MG/26 MG 1 TAB PO ×2 (07:53→19:48)
[2025-07-30] MEDS: LASIX 20 MG PO (07:53)
[2025-07-30] MEDS: ASPIR LOW (ENTERIC COATED) 81 MG PO (07:53)
[2025-07-30] MEDS: VITAMIN D3 (cholecalciferol) 25 MCG PO (07:53)
[2025-07-30] MEDS: COREG 6.25 MG PO ×2 (07:54→19:49)
[2025-07-30] MEDS: COLACE PO (07:54)
[2025-07-30] MEDS: PROTONIX 40 MG PO ×2 (07:55→19:49)
[2025-07-30] MEDS: SENOKOT PO (07:55)
--- NOTE | 2025-07-30 10:35 | W.PN.HOSP.TC ---
Today's Communication/Plan
-
IV Vanc
follow up further ID and wound care recs
Assessment / Plan
Assessment / Plan
Ms. Nica Lopez is a 74 yo woman with hx PUD s/p partial gastrectomy and Billroth II anastomosis 1999, with recent suspected gastric cancer of anastomotic ulcer, s/p J tube placement 05/02/25, recent admission 05/17- 06/01/25 for septic shock 10/02
enteritis and infected fluid collection near J-tube site s/p J tube removal, UGIB in setting of known ulcers, re-admitted 06/07-06/11/25 for abdominal wall abscess near prior J-tube site (discharged on Cipro/Flagyl through 06/21/25) represents for
evaluation of chronic abdominal wound and wound vac malfunction. Family noted purulent drainage around tube site.
Abdomen/Pelvis CT
IMPRESSION: There is a small air and fluid collection within the central and left anterior paramedian anterior abdominal wall, decreased in size since examination of June 07, 2025. This probably represents a small residual abscess.
No evidence for extension of oral contrast into this collection.
Status post Billroth II gastrojejunostomy. There is no evidence for bowel obstruction. There is no evidence for free intraperitoneal air.
Moderate bilateral subcutaneous edema within the abdomen and pelvis.
Status post cholecystectomy. Prominence of intrahepatic bile ducts with mild dilation of the common hepatic duct and top normal caliber of the common bile duct within the superior and the pancreas.
Hepatomegaly. No evidence of a focal hepatic lesion.
Patchy areas of scarring involving both kidneys.
Moderate to large amount of stool within the colon. Rectum is moderately distended with suggestion of mild to moderate circumferential rectal wall thickening. Findings suggest the possibility of stercoral colitis. No evidence for perforation.
Residual Abdominal abscess/infection at J tube site
Partial gastrectomy Billroth II gastrojejunostomy/ Had J-tube placed on 04/28/2025 due to cachexia, weight loss, gastroparesis, low-grade dysplasia and ulceration at anastomosis
Admissions 05/17-06/01/25 and 06/07-06/11/25 for J-tube tract infection
Jtube fell out 05/17 replaced rubber catheter fell out 05/28 during prior admission - not candidate for replacement per Dr. Brown, patient tolerating oral foods
MRSA wound infection
-stop IV Zosyn and start IV Vanc as culture growing MRSA
-ID consult appreciated
-wound care consult
Constipation/ possibility of stercoral colitis on CT
-*patient is s/p BM on 07/29
-Miralax, colaca, senna
-Dulcolax supp PRN
Aanemia of chronic disease
-hgb 8.7, no active bleeding
- Ferrous sulfate
#hypokalemia
-repleted
#Severe protein calorie malnutrition due to chronic illness/gastroparesis
-Has been eating regular diet with Ensure twice daily
- Patient is on Remeron for appetite
#hxt of GI ulceration proximal jejunum
#Catalan's esophagus/GERD
Continue Carafate 1 g p.o. ACHS, Protonix 40 mg twice daily
#Heart failure reduced EF
#TTE 04/08/2024 with EF 35-40%
Continue Entresto and Lasix
#HTN
Continue carvedilol 6.25 mg p.o. twice daily with hold parameters
#CAD
-Aspirin continue
#Arthritis
- Tramadol continued
#Chronic ambulatory dysfunction
PT/OT
DVT prophylaxis - SCDs
DNR
Anticipated Discharge: 24 - 48 hours
Subjective/Interval History
-
Date of Service: July 30, 2025
she is feeling well
no pain
Objective Data
-
Vital Signs:
Vital Signs
Temp Pulse Resp BP Pulse Ox
97.4 F 74 16 113/60 94
07/30/25 07:15 07/30/25 07:15 07/30/25 07:15 07/30/25 07:15 07/30/25 09:58
I&O
07/29/25 07/30/25 07/31/25
06:59 06:59 06:59
Intake Total 680 / 680
Balance 680 / 680
Review of Systems
-
History Source: Patient
All other systems: Reviewed and negative
Physical Exam
-
General: No Apparent Distress
HEENT: PERRLA
Respiratory: Clear to Auscultation; Negative Wheezes
Cardiac: Regular Rhythm and S1/S2
GI: Soft and Other ((j-tube tract wound with purulent drainage, mild surrounding erythema ))
Musculoskeletal: No Clubbing, No Cyanosis and No Edema
Skin: Warm and Dry
Neuro: AO x 3
Psych: Calm
Data Reviewed
-
Diagnostic Radiology: Report Reviewed by me
Labs: Labs Reviewed by me
--- NOTE | 2025-07-30 10:40 | PHA.VAN.IN ---
Assessment
- Assessment
Renal Function: Appears similar to baseline
Renal Function may be Overestimated due to: due to bmi=14.7
- Previous Dosing Experience
Previous Regimen: 750mg q24h
Date of Regimen: 05/2025
Provided Trough of: n/a
Patient's SCR is: Similar to previous dosing experience
Patient's weight is: Similar to previous dosing experience
AUC Dosing Plan
- Dosing Variables
Dosing Weight (kg): 39.944
Dosing CrCl (ml/min): 51
Vd coefficient (L/kg): 0.7
- Empiric Dosing
Initial / Loading Dose: 1000mg 07/28
Maintenance Regimen: 750mg q24h
Estimated AUC (mcg*h/mL): 587
Estimated Peak (mcg*h/mL): 39.8
Estimated Trough (mcg/ml): 13.6
Estimated Half Life (H): 14.8
- Monitoring
No levels ordered at this time: consider at steady state
Pharmacokinetics Vancomycin I
- -
Patient Age: 74
Patient Sex: Female
Vancomycin Day #: 1
Indication: Skin And Soft Tissue
Requesting Provider: Dr. Leach
Pertinent Antimicrobial Allergies:
nkda
Height / Weight:
Height 5 ft 5 in
Actual Weight 39.944 kg
IBW in k
- Vital Signs / Lab Results
Temp Pulse Resp BP Pulse Ox
97.4 F 74 16 113/60 94
07/30/25 07:15 07/30/25 07:15 07/30/25 07:15 07/30/25 07:15 07/30/25 09:58
Lab Results - Hematology
07/28/25 07/29/25
20:04 07:51
WBC 4.1 L 4.1 L
Lab Results - Chemistry
07/28/25 07/29/25
20:04 07:51
BUN 28 H 26 H
Creatinine 0.6 0.6
Estimated Creat Clear 54 51
Albumin 3.0 L
07/28/25
20:04
Lactic Acid 1.0
Microbiology Results
07/28/25 20:04 Wound Culture - Preliminary
Abdomen Staph aureus MRSA
Gram Stain - Preliminary
07/28/25 20:04 Blood Culture - Preliminary
Blood/Venous No Growth in 24 hours- Final report to follow
07/28/25 20:04 Blood Culture - Preliminary
Blood/Venous No Growth in 24 hours- Final report to follow
[2025-07-30] MEDS: VANCOCIN 150 IV (11:00)
--- NOTE | 2025-07-30 13:39 | W.PN.ID1 ---
Date of Service
Date of Service: July 30, 2025
Today's Communication
Continue antibiotics
Assessment / Plan
Abdominal wall wound
VAC malfunction
Hx prior J-tube
PUD s/p partial gastretcomy and Billroth II anastomosis (1999)
Anemia
Gastroparesis
Catalan's esophagus
Essential thrombocytosis
GERD
PUD
HTN
CAD
HLD
Former smoker
Protein calorie malnutrition/cachexia
Chronic ambulatory dysfunction currently stands to transfer only
Recommendations:
Continue with empiric Zosyn.
Wound culture with presumptive MRSA; vancomycin added.
Await final wound culture results
Local care to the wound; follow for ongoing drainage.
Monitor white count and temperature curve.
����������������������������������������������������������
Chief Complaint
-: Cellulitis and Other (Wound infection)
Subjective / Review of Systems
Review of Systems: No Fever and No Chills
Vital Signs / Physical Exam
Vital Signs
Vital Signs
Temp Pulse Resp BP Pulse Ox
97.4 F 74 16 113/60 94
07/30/25 07:15 07/30/25 07:15 07/30/25 07:15 07/30/25 07:15 07/30/25 09:58
Physical Exam
Constitutional: No Acute Distress, Comfortable and Non-toxic
Cardiovascular: S1/S2; Negative S3/S4
Pulmonary: Non Labored
Gastrointestinal: Soft and Non Tender
Wound: Other (Anterior abdominal wound dressed.)
Neurological: Awake and Alert
Objective Data
Lab Data
Lab Results
07/29/25 07:51
07/29/25 07:51
Estimated Creat Clear 51 ml/min 07/29/25 07:51
Lactic Acid 1.0 mmol/L (0.7-2.0) 07/28/25 20:04
Total Bilirubin 0.2 mg/dl (0.2-1.3) 07/28/25 20:04
AST 14 U/L (14-36) 07/28/25 20:04
ALT 12 U/L (0-35) 07/28/25 20:04
Alkaline Phosphatase 95 U/L (38-126) 07/28/25 20:04
Most recent labs reviewed.
Micro Results:
07/28/25 20:04 Wound Culture - Preliminary
Abdomen Staph aureus MRSA
Gram Stain - Preliminary
07/28/25 20:04 Blood Culture - Preliminary
Blood/Venous No Growth in 24 hours- Final report to follow
07/28/25 20:04 Blood Culture - Preliminary
Blood/Venous No Growth in 24 hours- Final report to follow
Imaging:
07/20/2025 CT abd/pel with IV / PO contrast: There is a small air and fluid collection within the central and left anterior paramedian anterior abdominal wall, decreased in size since examination of June 07, 2025. This probably represents a small
residual abscess. No evidence for extension of oral contrast into this collection. Status post Billroth II gastrojejunostomy. There is no evidence for bowel obstruction. There is no evidence for free intraperitoneal air. Moderate bilateral
subcutaneous edema within the abdomen and pelvis. Status post cholecystectomy. Prominence of intrahepatic bile ducts with mild dilation of the common hepatic duct and top normal caliber of the common bile duct within the superior and the pancreas.
Hepatomegaly. No evidence of a focal hepatic lesion. Patchy areas of scarring involving both kidneys. Moderate to large amount of stool within the colon. Rectum is moderately distended with suggestion of mild to moderate circumferential rectal
wall thickening. Findings suggest the possibility of stercoral colitis. No evidence for perforation. Please see full dictation for additional detail. Film personally viewed.
[2025-07-30 15:40] VITALS: BP 124/61
--- NOTE | 2025-07-30 16:24 | PTCARENOTE ---
Pt was transferred to room 320 on a bed with her belongings. Report given to CALVIN Clark.
[2025-07-30 16:26] VITALS: BP 140/63
--- NOTE | 2025-07-30 16:45 | PTCARENOTE ---
report received. aaox3. vss. wound dressing to old j tube site cdi. call fajardo in reach. spouse at beside. updated on plan of care. will monitor.
[2025-07-30] MEDS: SENOKOT 8.6 MG PO (19:49)
[2025-07-30] MEDS: COLACE 100 MG PO (19:49)
[2025-07-30] MEDS: ULTRAM 50 MG PO (20:44)
[2025-07-30] MEDS: REMERON 7.5 MG PO (20:44)
[2025-07-30 23:00] VITALS: BP 129/70
[2025-07-31 06:00] VITALS: BMI 14.7
[2025-07-31] MEDS: VANCOCIN 150 IV (06:07)
[2025-07-31 07:14] VITALS: BP 139/65
[2025-07-31 07:14] LABS: Hematocrit 26.4 % (37.0-47.0); Hemoglobin 7.9 g/dL (12.0-16.0); Mean Corp Hgb Conc. 29.9 g/dL (33.0-37.0); Mean Corpuscular Volume 88.0 fL (81.0-99.0); Platelet Count 280 10^3/uL (130-400); Red Cell Dist. Width 24.7 % (11.5-14.5)
[2025-07-31 07:33] LABS: Blood Urea Nitrogen 18 mg/dl (7-17); Calcium 8.6 mg/dl (8.4-10.2); Carbon Dioxide 31 mmol/L (22-30); Chloride 102 mmol/L (98-107); Estimated Creatinine Clearance 51 ml/min; Glucose 95 mg/dl (70-99); Magnesium 1.6 mg/dl (1.6-2.3); Potassium 3.1 mmol/L (3.5-5.1); Sodium 138 mmol/L (135-145); eGFR > 60.00
[2025-07-31] MEDS: MIRALAX 17 GRAMS PO (08:10)
[2025-07-31] MEDS: VITAMIN D3 (cholecalciferol) 25 MCG PO (08:11)
[2025-07-31] MEDS: COREG 6.25 MG PO ×2 (08:11→19:29)
[2025-07-31] MEDS: HYDREA 500 MG PO ×2 (08:11→19:29)
[2025-07-31] MEDS: PROTONIX 40 MG PO ×2 (08:11→19:29)
[2025-07-31] MEDS: ENTRESTO 24 MG/26 MG 1 TAB PO ×2 (08:11→19:28)
[2025-07-31] MEDS: FEOSOL 325 MG PO (08:11)
[2025-07-31] MEDS: COLACE 100 MG PO (08:11)
[2025-07-31] MEDS: SENOKOT 8.6 MG PO (08:11)
[2025-07-31] MEDS: ASPIR LOW (ENTERIC COATED) 81 MG PO (08:11)
[2025-07-31] MEDS: LASIX 20 MG PO (08:11)
[2025-07-31] MEDS: ULTRAM 50 MG PO ×2 (08:16→21:19)
[2025-07-31] MEDS: KCL 270 MEQ IV (09:06)
--- NOTE | 2025-07-31 09:41 | PHA.VAN.FU ---
Vancomycin Assessment / Plan
- Assessment
Renal Function: Stable
WBC's are: Stable
In the past 24 hrs, patient has been: Afebrile
Concomitant Antimicrobials: piperacillin/tazobactam
- Dosing Plan
Adjust Regimen to: dosing by level
Dosing Comments: give additional 750mg x1 at 1800
Given BMI < 18.5 and history of cancer, patient may have higher clearance than population PK predicts
Patient has received the following doses to date:
1 gram - 07/28/25 20:32
750mg - 07/30/25 11:00
750 mg- 07/31/25 06:07
Will trial BID dosing today due to anticipated increased clearance
Will follow random levels to ensure patient does not accumulate too quickly
IBW = 57 kg, CrCl (IBW) = 72
- Monitoring Plan
Random Level: 08/01 600
- Follow Up
Pharmacy will continue to follow.
Vancomycin Follow UP
- -
Patient Age: 74
Patient Sex: Female
Vancomycin Day #: 2
Indication: Skin And Soft Tissue
Requesting Provider: Dr. Leach / Karen
Pertinent Antimicrobial Allergies:
nkda
Height / Weight:
Height 5 ft 5 in
Actual Weight 40.188 kg
IBW in k
Pertinent Past Medical History: Gastric cancer; BMI ~14.7
- Vital Signs / Lab Results
Temp Pulse Resp BP Pulse Ox
97.7 F 64 17 139/65 95
07/31/25 07:14 07/31/25 07:14 07/31/25 07:14 07/31/25 07:14 07/31/25 07:14
Lab Results - Hematology
07/28/25 07/29/25 07/31/25
20:04 07:51 06:26
WBC 4.1 L 4.1 L 4.1 L
Lab Results - Chemistry
07/28/25 07/29/25 07/31/25
20:04 07:51 06:26
BUN 28 H 26 H 18 H
Creatinine 0.6 0.6 0.5 L
Estimated Creat Clear 54 51 51
Albumin 3.0 L
07/28/25
20:04
Lactic Acid 1.0
Microbiology Results
07/28/25 20:04 Wound Culture - Final
Abdomen Staph aureus MRSA
Gram Stain - Final
07/28/25 20:04 Blood Culture - Preliminary
Blood/Venous No Growth in 48 hours- Final report to follow
07/28/25 20:04 Blood Culture - Preliminary
Blood/Venous No Growth in 48 hours- Final report to follow
[2025-07-31 09:55] LABS: Iron 37 ug/dl (37-170)
[2025-07-31 10:04] LABS: Total Iron Binding Capacity 234 ug/dl (265-497)
[2025-07-31 10:31] LABS: Ferritin 49.0 ng/ml (11.1-264.0)
[2025-07-31 11:02] LABS: Folate 8.0 ng/ml (2.76-20); Vitamin B12 910 pg/ml (239-931)
--- NOTE | 2025-07-31 11:25 | W.PN.HOSP.TC ---
Today's Communication/Plan
-
IV vancomycin for now
IV iron while here
PT/OT-may require SNF
Assessment / Plan
Assessment / Plan
General: No Apparent Distress, cachectic
HEENT: Neck is supple, trachea is midline
Respiratory: Clear to Auscultation; Negative Wheezes
Cardiac: Regular Rhythm and S1/S2
GI: Soft and Other ((j-tube tract with not much drainage on dressing)
Musculoskeletal: No Clubbing, No Cyanosis and No Edema
Skin: Warm and Dry
Neuro: AO x 3
Psych: Calm
Abdomen/Pelvis CT
IMPRESSION: There is a small air and fluid collection within the central and left anterior paramedian anterior abdominal wall, decreased in size since examination of June 07, 2025. This probably represents a small residual abscess.
No evidence for extension of oral contrast into this collection.
Status post Billroth II gastrojejunostomy. There is no evidence for bowel obstruction. There is no evidence for free intraperitoneal air.
Moderate bilateral subcutaneous edema within the abdomen and pelvis.
Status post cholecystectomy. Prominence of intrahepatic bile ducts with mild dilation of the common hepatic duct and top normal caliber of the common bile duct within the superior and the pancreas.
Hepatomegaly. No evidence of a focal hepatic lesion.
Patchy areas of scarring involving both kidneys.
Moderate to large amount of stool within the colon. Rectum is moderately distended with suggestion of mild to moderate circumferential rectal wall thickening. Findings suggest the possibility of stercoral colitis. No evidence for perforation.
Residual Abdominal abscess/infection at J tube site
Partial gastrectomy Billroth II gastrojejunostomy/ Had J-tube placed on 04/28/2025 due to cachexia, weight loss, gastroparesis, low-grade dysplasia and ulceration at anastomosis
-Admissions 05/17-06/01/25 and 06/07-06/11/25 for J-tube tract infection
-Jtube fell out 05/17 replaced rubber catheter fell out 05/28 during prior admission - not candidate for replacement per Dr. Brown, patient tolerating oral foods
-MRSA wound infection and susceptibility noted. Sensitive to p.o. linezolid/Bactrim.
-stop IV Zosyn and start IV Vanc as culture growing MRSA
-ID consult appreciated
-wound care consult
Constipation/ possibility of stercoral colitis on CT
-patient is s/p BM on 07/29 and 07/30
-Miralax
-Dulcolax supp PRN
Anemia of chronic disease
Iron deficiency anemia
-No active luminal bleeding noted. Hemoglobin 7.9. Trial of IV iron.
- Ferrous sulfate hold p.o. for now
#hypokalemia
-repleted
#Severe protein calorie malnutrition due to chronic illness/gastroparesis
-Has been eating regular diet with Ensure twice daily
- Patient is on Remeron for appetite
#hxt of GI ulceration proximal jejunum
#Catalan's esophagus/GERD
Continue Carafate 1 g p.o. ACHS, Protonix 40 mg twice daily
#Heart failure reduced EF
#TTE 04/08/2024 with EF 35-40%
Continue Entresto and Lasix
#HTN
Continue carvedilol 6.25 mg p.o. twice daily with hold parameters
#CAD
-Aspirin continue
#Arthritis
- Tramadol continued
#Chronic ambulatory dysfunction
#Severe protein caloric malnutrition of chronic illness
Nutrition following
Ensure
PT/OT
DVT prophylaxis - lovenox ppx
DNR
PT/OT. May require placement. Case management aware. Await rehab eval.
Discussed with spouse at bedside in detail
Anticipated Discharge: 24 - 48 hours
Subjective/Interval History
-
Date of Service: July 31, 2025
Had formed bowel movement followed by some loose bowel movements
Tolerating diet
Objective Data
-
Labs:
Laboratory Results
12/01/25
06:26
WBC 4.1 L
Hgb 7.9 L
Hct 26.4 L
Plt Count 280
Sodium 138
Potassium 3.1 L
Chloride 102
Carbon Dioxide 31 H
BUN 18 H
Creatinine 0.5 L
Glucose 95
Calcium 8.6
Vital Signs:
Vital Signs
Temp Pulse Resp BP Pulse Ox
97.7 F 64 17 139/65 95
07/31/25 07:14 07/31/25 07:14 07/31/25 07:14 07/31/25 07:14 07/31/25 07:14
I&O
07/30/25 07/31/25 08/01/25
06:59 06:59 06:59
Intake Total 680 / 680 960 / 960
Balance 680 / 680 960 / 960
Data Reviewed
-
Total Time Spent with Patient (in minutes): 55
--- NOTE | 2025-07-31 12:21 | W.PN.ID1 ---
Date of Service
Date of Service: July 31, 2025
Today's Communication
Continue antibiotics. See below�
Assessment / Plan
Abdominal wall wound
VAC malfunction
Hx prior J-tube
PUD s/p partial gastretcomy and Billroth II anastomosis (1999)
Anemia
Gastroparesis
Catalan's esophagus
Essential thrombocytosis
GERD
PUD
HTN
CAD
HLD
Former smoker
Protein calorie malnutrition/cachexia
Chronic ambulatory dysfunction currently stands to transfer only
Recommendations:
Overall wound drainage noted today.
Discontinue further vancomycin.
Transition to doxycycline 100 mg p.o. BID for an additional 7 days.
Local care to the wound; follow for ongoing drainage.
Monitor white count and temperature curve.
����������������������������������������������������������
Chief Complaint
-: Cellulitis and Other (Wound infection)
Subjective / Review of Systems
Review of Systems: No Fever and No Chills
Vital Signs / Physical Exam
Vital Signs
Vital Signs
Temp Pulse Resp BP Pulse Ox
97.7 F 64 17 139/65 95
07/31/25 07:14 07/31/25 07:14 07/31/25 07:14 07/31/25 07:14 07/31/25 07:14
Physical Exam
Constitutional: No Acute Distress, Comfortable and Non-toxic
Cardiovascular: S1/S2; Negative S3/S4
Pulmonary: Non Labored
Gastrointestinal: Soft and Non Tender
Wound: Other (Anterior abdominal wound dressed. Marked decrease in drainage. No periwound erythema.)
Neurological: Awake and Alert
Objective Data
Lab Data
Lab Results
07/31/25 06:26
07/31/25 06:26
Estimated Creat Clear 51 ml/min 07/31/25 06:26
Lactic Acid 1.0 mmol/L (0.7-2.0) 07/28/25 20:04
Total Bilirubin 0.2 mg/dl (0.2-1.3) 07/28/25 20:04
AST 14 U/L (14-36) 07/28/25 20:04
ALT 12 U/L (0-35) 07/28/25 20:04
Alkaline Phosphatase 95 U/L (38-126) 07/28/25 20:04
Most recent labs reviewed.
Micro Results:
07/28/25 20:04 Wound Culture - Final
Abdomen Staph aureus MRSA
Gram Stain - Final
07/28/25 20:04 Blood Culture - Preliminary
Blood/Venous No Growth in 48 hours- Final report to follow
07/28/25 20:04 Blood Culture - Preliminary
Blood/Venous No Growth in 48 hours- Final report to follow
Imaging:
07/20/2025 CT abd/pel with IV / PO contrast: There is a small air and fluid collection within the central and left anterior paramedian anterior abdominal wall, decreased in size since examination of June 07, 2025. This probably represents a small
residual abscess. No evidence for extension of oral contrast into this collection. Status post Billroth II gastrojejunostomy. There is no evidence for bowel obstruction. There is no evidence for free intraperitoneal air. Moderate bilateral
subcutaneous edema within the abdomen and pelvis. Status post cholecystectomy. Prominence of intrahepatic bile ducts with mild dilation of the common hepatic duct and top normal caliber of the common bile duct within the superior and the pancreas.
Hepatomegaly. No evidence of a focal hepatic lesion. Patchy areas of scarring involving both kidneys. Moderate to large amount of stool within the colon. Rectum is moderately distended with suggestion of mild to moderate circumferential rectal
wall thickening. Findings suggest the possibility of stercoral colitis. No evidence for perforation. Please see full dictation for additional detail. Film personally viewed.
CT Scan: Image Reviewed and Report Reviewed
--- NOTE | 2025-07-31 12:21 | WOUNDNOTE ---
ABDOMEN (with photo flash)
--- NOTE | 2025-07-31 12:21 | WOUNDNOTE ---
[facility] RN note: Patient admitted with abscess abdominal wall. Patient was at [facility]. Patient's visiting. Patient is followed by [facility].
See H&P for complete history.
PMH: prior J tube, PUD s/p partial gastrectomy and Billroth II anastomosis 2000, anemia, gastroparesis, Catalan's esophagus, thrombocytosis, GERD, HTN, former smoker, cachexia.
Wound Location and type/assessment: Patient admitted with: full thickness abdominal wound from old J tube site, ulcer pink that can be visualized. Wound tunnels medial proximally about 3cm. Moderate yellow drainage. Sacral/buttocks blanchable
persistent dull red.
Appetite: fair. +Cachexia.
Pressure redistribution devices in place: Static air overlay. Air chair cushion.
Plan: Abdominal dressing changed. Sacral shaped silicone border foam dressing applied to sacrum. Instructed patient and pressure injury prevention measures and to take air chair cushion when discharged. Spoke with [facility] nurse supervisor compounding and finishing
re: will not resume wound vac at this time. Patient to follow up at [facility] when discharged.
Will confirm orders with Dr. Garza and discussed with CALVIN Stout.
Care plan to be updated and will follow as needed.
Note to case management requested for discharge: VN if patient goes home.
Recommend follow up at wound care center upon discharge.
[2025-07-31] MEDS: FERRLECIT 110 MG IV (14:22)
[2025-07-31 15:06] VITALS: BP 141/71
--- NOTE | 2025-07-31 15:51 | CM ---
Patient seen at bedside
PT rec SNF
patient prefers [facility], [facility]
referrals entered in [facility]port
will need ins auth once bed secured
PLAN: SNF, pending bed availability, will need ins auth once bed secured
--- NOTE | 2025-07-31 16:15 | WOUNDNOTE ---
[facility] RN note: Veto León re: recommend air mattress at SNF for patient. She is high risk for a pressure injury.
[2025-07-31] MEDS: LOVENOX 30 MG SC (17:35)
[2025-07-31] MEDS: VIBRAMYCIN 100 MG PO (19:30)
[2025-07-31] MEDS: REMERON 7.5 MG PO (21:18)
[2025-07-31 23:30] VITALS: BP 144/81
[2025-08-01 06:00] VITALS: BMI 15.1
[2025-08-01 07:00] VITALS: BP 162/75
[2025-08-01 07:43] LABS: Hematocrit 28.8 % (37.0-47.0); Hemoglobin 8.1 g/dL (12.0-16.0); Mean Corp Hgb Conc. 28.1 g/dL (33.0-37.0); Mean Corpuscular Volume 89.7 fL (81.0-99.0); Nucleated Red Blood Cells % 0 %; Platelet Count 286 10^3/uL (130-400); Red Cell Dist. Width 24.9 % (11.5-14.5)
[2025-08-01 08:12] LABS: ALT (SGPT) < 10 U/L (0-35); AST (SGOT) 11 U/L (14-36); Albumin 2.9 g/dl (3.5-5.0); Alkaline Phosphatase 81 U/L (38-126); Blood Urea Nitrogen 17 mg/dl (7-17); Calcium 8.9 mg/dl (8.4-10.2); Carbon Dioxide 32 mmol/L (22-30); Chloride 106 mmol/L (98-107); Estimated Creatinine Clearance 53 ml/min; Glucose 75 mg/dl (70-99); Potassium 3.8 mmol/L (3.5-5.1); Sodium 139 mmol/L (135-145); Total Protein 5.9 g/dl (6.3-8.2); eGFR > 60.00
[2025-08-01] MEDS: ASPIR LOW (ENTERIC COATED) 81 MG PO (08:23)
[2025-08-01] MEDS: HYDREA 500 MG PO (08:23)
[2025-08-01] MEDS: VIBRAMYCIN 100 MG PO (08:23)
[2025-08-01] MEDS: COREG 6.25 MG PO (08:23)
[2025-08-01] MEDS: PROTONIX 40 MG PO (08:23)
[2025-08-01] MEDS: LASIX 20 MG PO (08:23)
[2025-08-01] MEDS: ENTRESTO 24 MG/26 MG 1 TAB PO (08:23)
[2025-08-01] MEDS: VITAMIN D3 (cholecalciferol) 25 MCG PO (09:18)
--- NOTE | 2025-08-01 11:10 | W.PN.HOSP.TC ---
Addendum entered and electronically signed by Natalio Garza MD 08/01/25 13:41:
More than 30 minutes spent in discharge including
Final examination of the patient
Summarizing hospital stay
Instructions for continuing care to all relevant caregivers
Preparation of discharge records, prescriptions, and referral forms
Total time spent (in minutes): 53
Original Note:
Today's Communication/Plan
-
po doxy
await placement -cm aware
IV iron while here
Assessment / Plan
Assessment / Plan
General: No Apparent Distress, cachectic
HEENT: Neck is supple, trachea is midline
Respiratory: Clear to Auscultation; Negative Wheezes
Cardiac: Regular Rhythm and S1/S2
GI: Soft and Other ((j-tube tract with not much drainage on dressing)
Musculoskeletal: No Clubbing, No Cyanosis and No Edema
Skin: Warm and Dry
Neuro: AO x 3
Psych: Calm
Abdomen/Pelvis CT
IMPRESSION: There is a small air and fluid collection within the central and left anterior paramedian anterior abdominal wall, decreased in size since examination of June 07, 2025. This probably represents a small residual abscess.
No evidence for extension of oral contrast into this collection.
Status post Billroth II gastrojejunostomy. There is no evidence for bowel obstruction. There is no evidence for free intraperitoneal air.
Moderate bilateral subcutaneous edema within the abdomen and pelvis.
Status post cholecystectomy. Prominence of intrahepatic bile ducts with mild dilation of the common hepatic duct and top normal caliber of the common bile duct within the superior and the pancreas.
Hepatomegaly. No evidence of a focal hepatic lesion.
Patchy areas of scarring involving both kidneys.
Moderate to large amount of stool within the colon. Rectum is moderately distended with suggestion of mild to moderate circumferential rectal wall thickening. Findings suggest the possibility of stercoral colitis. No evidence for perforation.
Residual Abdominal abscess/infection at J tube site
Partial gastrectomy Billroth II gastrojejunostomy/ Had J-tube placed on 04/28/2025 due to cachexia, weight loss, gastroparesis, low-grade dysplasia and ulceration at anastomosis
-Admissions 05/17-06/01/25 and 06/07-06/11/25 for J-tube tract infection
-Jtube fell out 05/17 replaced rubber catheter fell out 05/28 during prior admission - not candidate for replacement per Dr. Brown, patient tolerating oral foods
-MRSA wound infection and susceptibility noted. S
- Status post vancomycin and Zosyn. Now on doxycycline.
-ID consult appreciated
-wound care consult
Constipation/ possibility of stercoral colitis on CT
-patient having bm.
-Miralax
-Dulcolax supp PRN
Anemia of chronic disease
Iron deficiency anemia
-No active luminal bleeding noted. Trial of IV iron.
- Ferrous sulfate hold p.o. for now
#hypokalemia
-repleted
#Severe protein calorie malnutrition due to chronic illness/gastroparesis
-Has been eating regular diet with Ensure twice daily
- Patient is on Remeron for appetite
#hxt of GI ulceration proximal jejunum
#Catalan's esophagus/GERD
Continue Carafate 1 g p.o. ACHS, Protonix 40 mg twice daily
#Heart failure reduced EF
#TTE 04/08/2024 with EF 35-40%
Continue Entresto and Lasix
#HTN
Continue carvedilol 6.25 mg p.o. twice daily with hold parameters
#CAD
-Aspirin continue
#Arthritis
- Tramadol continued
#Chronic ambulatory dysfunction
PT/OT
DVT prophylaxis - lovenox ppx
DNR
PT/OT recs SNF. CM aware.
Anticipated Discharge: Today
Subjective/Interval History
-
Date of Service: August 01, 2025
states of 2 loose bm
no abd pain, nausea or vomiting
toelrating diet
Objective Data
-
Labs:
Laboratory Results
08/01/25
07:01
WBC 4.2 L
Hgb 8.1 L
Hct 28.8 L
Plt Count 286
Sodium 139
Potassium 3.8
Chloride 106
Carbon Dioxide 32 H
BUN 17
Creatinine 0.5 L
Glucose 75
Calcium 8.9
Total Bilirubin 0.1 L
AST 11 L
ALT < 10
Alkaline Phosphatase 81
Vital Signs:
Vital Signs
Temp Pulse Resp BP Pulse Ox
97.2 F 70 16 162/75 94
08/01/25 07:00 08/01/25 07:00 08/01/25 07:00 08/01/25 07:00 08/01/25 07:00
I&O
07/31/25 08/01/25 08/02/25
06:59 06:59 06:59
Intake Total 960 / 960 600 / 600
Balance 960 / 960 600 / 600
Data Reviewed
-
Total Time Spent with Patient (in minutes): 55
[2025-08-01] MEDS: MIRALAX 17 GRAMS PO (11:42)
--- NOTE | 2025-08-01 12:32 | W.PN.ID1 ---
Date of Service
Date of Service: August 01, 2025
Today's Communication
Continue current course of doxy.
Assessment / Plan
Abdominal wall wound 2* MRSA
VAC malfunction
Hx prior J-tube
PUD s/p partial gastretcomy and Billroth II anastomosis (1999)
Anemia
Gastroparesis
Catalan's esophagus
Essential thrombocytosis
GERD
PUD
HTN
CAD
HLD
Former smoker
Protein calorie malnutrition/cachexia
Chronic ambulatory dysfunction currently stands to transfer only
Recommendations:
Continue doxycycline 100 mg p.o. BID for an additional 6 days.
Local care to the abdominal wound; follow for any worsening of drainage.
Monitor white count and temperature curve.
����������������������������������������������������������
Chief Complaint
-: Cellulitis and Other (Abdominal wound infection)
Subjective / Review of Systems
Review of Systems: No Fever, No Chills and No Abdominal Pain
Vital Signs / Physical Exam
Vital Signs
Vital Signs
Temp Pulse Resp BP Pulse Ox
97.2 F 70 16 162/75 94
08/01/25 07:00 08/01/25 07:00 08/01/25 07:00 08/01/25 07:00 08/01/25 07:00
Physical Exam
Constitutional: No Acute Distress, Comfortable and Non-toxic
Cardiovascular: S1/S2; Negative S3/S4
Pulmonary: Non Labored
Gastrointestinal: Soft and Non Tender
Wound: Other (Anterior abdominal wound dressed. Little drainage. No periwound erythema. No significant tenderness.)
Neurological: Awake and Alert
Objective Data
Lab Data
Lab Results
08/01/25 07:01
08/01/25 07:01
Estimated Creat Clear 53 ml/min 08/01/25 07:01
Lactic Acid 1.0 mmol/L (0.7-2.0) 07/28/25 20:04
Total Bilirubin 0.1 mg/dl (0.2-1.3) L 08/01/25 07:01
AST 11 U/L (14-36) L 08/01/25 07:01
ALT < 10 U/L (0-35) 08/01/25 07:01
Alkaline Phosphatase 81 U/L (38-126) 08/01/25 07:01
Most recent labs reviewed.
Micro Results:
07/28/25 20:04 Blood Culture - Preliminary
Blood/Venous No Growth in 72 hours- Final report to follow
07/28/25 20:04 Blood Culture - Preliminary
Blood/Venous No Growth in 72 hours- Final report to follow
07/28/25 20:04 Wound Culture - Final
Abdomen Staph aureus MRSA
Gram Stain - Final
Imaging:
07/20/2025 CT abd/pel with IV / PO contrast: There is a small air and fluid collection within the central and left anterior paramedian anterior abdominal wall, decreased in size since examination of June 07, 2025. This probably represents a small
residual abscess. No evidence for extension of oral contrast into this collection. Status post Billroth II gastrojejunostomy. There is no evidence for bowel obstruction. There is no evidence for free intraperitoneal air. Moderate bilateral
subcutaneous edema within the abdomen and pelvis. Status post cholecystectomy. Prominence of intrahepatic bile ducts with mild dilation of the common hepatic duct and top normal caliber of the common bile duct within the superior and the pancreas.
Hepatomegaly. No evidence of a focal hepatic lesion. Patchy areas of scarring involving both kidneys. Moderate to large amount of stool within the colon. Rectum is moderately distended with suggestion of mild to moderate circumferential rectal
wall thickening. Findings suggest the possibility of stercoral colitis. No evidence for perforation. Please see full dictation for additional detail. Film personally viewed.
CT Scan: Image Reviewed and Report Reviewed
[2025-08-01 13:00] VITALS: BP 148/75; PULSE 68; O2SAT 95
--- NOTE | 2025-08-01 13:19 | CM ---
patient seen at bedside
IMM explained - in chart
spoke with Socorro at [facility] - bed available today
hospitalist tt stable for dc - COVID test ordered
[facility] NPI - [id number]
Dr. Todd Ryan NPI - [id number]
CM called [phone] spoke with Katiana cartagena auth
AUTH APPROVAL # [id number]
START 08/01/25 NRD 08/04/25
CALL WITH UPDATES TO [phone]
Ambulance auth #: [id number]
Auth information given to Socorro fisher
PLAN: [facility]
report #: [id number]
fax #: [phone]
[2025-08-01] MEDS: FERRLECIT 110 MG IV (13:21)
--- NOTE | 2025-08-01 13:38 | W.DCSUMMARY ---
Discharge Summary
Discharge Data
Date of Admission: 07/28/25
Date of Discharge: 08/01/25
-
Pending Results: No
Hospital Course
73-year-old female past medical history of Catalan esophagus, heart failure, hypertension, CAD, arthritis, chronic ambulatory dysfunction, Partial gastrectomy Billroth II gastrojejunostomy/ Had J-tube placed on 04/28/2025 due to cachexia, weight
loss, gastroparesis, low-grade dysplasia and ulceration at anastomosis who is presenting with worsening of chronic abdominal wound. Patient was eval by infectious disease. Patient was started on IV broad-spectrum antibiotics. CT abdomen/pelvis
showed- There is a small air and fluid collection within the central and left anterior paramedian anterior abdominal wall, decreased in size since examination of June 07, 2025. This probably represents a small residual abscess.
No evidence for extension of oral contrast into this collection. Status post Billroth II gastrojejunostomy. There is no evidence for bowel obstruction. There is no evidence for free intraperitoneal air. Moderate bilateral subcutaneous edema within
the abdomen and pelvis. Status post cholecystectomy. Prominence of intrahepatic bile ducts with mild dilation of the common hepatic duct and top normal caliber of the common bile duct within the superior and the pancreas. Hepatomegaly. No evidence
of a focal hepatic lesion. Patchy areas of scarring involving both kidneys. Moderate to large amount of stool within the colon. Rectum is moderately distended with suggestion of mild to moderate circumferential rectal wall thickening. Findings
suggest the possibility of stercoral colitis. No evidence for perforation. IV Zosyn was transitioned to vancomycin. Preliminary wound culture with MRSA and vancomycin discontinued. Patient was started on bowel regimen and led to resolution of
constipation. Patient was tolerating diet. Wound culture susceptibility noted. Patient was transition from IV vancomycin to p.o. doxycycline. Physical and Occupational Therapy evaluated patient recommended for rehab.
Discharge Plan
-
Patient Disposition: Longterm/SNF
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
Stercoral colitis
Hypokalemia
Condition: Fair
Diet: Regular
Activity: As tolerated
Driving Restrictions: Not until seen by your Dr
Activity Restrictions/Additional Instructions:
Wound Care Instructions
Abdominal wound-clean with saline or Vashe wound cleanser, alginate, cover with silicone border foam or gauze pads, change daily and prn drainage.
Elevate heels off bed with pillow/s
Pressure redistributing chair cushion (i.e. Air, gel, Roho).
air mattress.
Follow up at wound care center call for an appointment.
Referrals:
Machelle Franklin, [Family Provider]
Prescriptions:
New
doxycycline hyclate 100 mg Capsule
100 mg PO BID Qty: 12 0RF
sennosides-docusate sodium [Senna Plus] 8.6-50 mg Tablet
1 tab PO BID Qty: 14 0RF
Continued
pantoprazole 40 MG tablet,delayed release (DR/EC)
40 mg PO BID
aspirin 81 mg Tablet,Delayed Release (Dr/Ec)
81 mg PO DAILY
ferrous sulfate 142 mg (45 mg iron) Tablet Extended Release
142 mg PO Q48H
carvedilol 12.5 mg Tablet
6.25 mg PO BID
furosemide [Lasix] 20 mg Tablet
20 mg PO DAILY
cholecalciferol (vitamin D3) [Vitamin D3] 25 mcg (1,000 unit) Tablet
25 mcg PO DAILY
sacubitril-valsartan 24-26 mg Tablet
1 tab PO BID Qty: 60 0RF
acetaminophen [Tylenol] 325 mg Tablet
650 mg PO Q6HPRN PRN (Reason: mild pain)
mirtazapine 7.5 mg Tablet
7.5 mg PO HS Qty: 0 0RF
hydroxyurea 500 mg Capsule
500 mg PO BID
ammonium lactate 12 % Lotion
1 applic TOPICAL BID
tramadol 50 mg Tablet
50 mg PO Q6H PRN (Reason: b/l arm pain) Qty: 12 0RF
tramadol 50 mg Tablet
50 mg PO HS Qty: 3 0RF
Discontinued
loperamide 2 mg Capsule
2 mg PO Q6H PRN (Reason: diarrhea)
Discharge Orders:
Discharge Patient (As Directed); Ordered 08/01/25
Ordered By: Natalio Garza
Discharge Date and Time
Print Language: MALAGASY
[2025-08-01 15:00] VITALS: BP 122/58
== END 2025-08-01 16:48 | DRG 393 ==
LOC: 3 WEST ACU 23:50
PROVIDERS: Physician Assistant; Registered Nurse; Student in an Organized Health Care Education/Training Program; ADMITTING PHYSICIAN Hospitalist; ATTENDING PHYSICIAN Hospitalist; CONSULT PHYSICIAN Internal Medicine Infectious Disease; EMERGENCY PHYSICIAN Emergency Medicine; FAMILY PHYSICIAN Emergency Medicine
DX: K94.12 Enterostomy infection (principal); E43 Unspecified severe protein-calorie malnutrition; L02.211 Cutaneous abscess of abdominal wall; I50.22 Chronic systolic (congestive) heart failure; R64 Cachexia; C16.9 Malignant neoplasm of stomach, unspecified; Z68.1 Body mass index [BMI] 19.9 or less, adult; D63.8 Anemia in other chronic diseases classified elsewhere; I11.0 Hypertensive heart disease with heart failure; K59.00 Constipation, unspecified; Z90.3 Acquired absence of stomach [part of]; K52.89 Other specified noninfective gastroenteritis and colitis; K27.9 Peptic ulcer, site unspecified, unspecified as acute or chronic, without hemorrhage or perforation; K31.84 Gastroparesis; E87.6 Hypokalemia; Z66 Do not resuscitate; K22.70 Barrett's esophagus without dysplasia; F17.200 Nicotine dependence, unspecified, uncomplicated
CPT/HCPCS: 74177; 80048; 80053; 80202; 82607; 82728; 82746; 83540; 83550; 83605; 83735; 84100; 85025; 85027; 87040; 87070; 87147; 87186; 87205; 96365; 96367; 97110; 97163; 97167; 97530; 97535; 99284; J2916; Q9967

== ENCOUNTER 2025-08-07 10:29 | Outpatient (REF) | payer OTHER, SELFPAY | END 2025-08-07 23:59 | disposition home or self-care (01) | LOC: WOUND 10:29 | PROVIDERS: ATTENDING PHYSICIAN Registered Nurse; FAMILY PHYSICIAN Emergency Medicine | DX: S31.109A Unspecified open wound of abdominal wall, unspecified quadrant without penetration into peritoneal cavity, initial encounter (principal); K94.12 Enterostomy infection; K31.84 Gastroparesis; E43 Unspecified severe protein-calorie malnutrition; X58.XXXA Exposure to other specified factors, initial encounter | CPT/HCPCS: 99213 ==

== ENCOUNTER 2025-08-18 21:37 | Inpatient (IN) | payer OTHER, SELFPAY ==
[2025-08-18] VITALS (13 sets, daily range): BP systolic 102–130; BP diastolic 49–63; BMI 16.0
[2025-08-18] MEDS: NSS 1000 IV (18:51)
[2025-08-18] MEDS: PROTONIX IV 40 MG IV (18:51)
[2025-08-18 19:12] LABS: Hematocrit 21.0 % (37.0-47.0); Hemoglobin 6.2 g/dL (12.0-16.0); Mean Corp Hgb Conc. 29.5 g/dL (33.0-37.0); Mean Corpuscular Volume 91.7 fL (81.0-99.0); Nucleated Red Blood Cells % 0 %; Platelet Count 214 10^3/uL (130-400); Red Cell Dist. Width 27.9 % (11.5-14.5)
--- NOTE | 2025-08-18 19:20 | ED.GENMED ---
History of Present Illness
<Kaci Rocha NP - Last Filed: 08/20/25 14:54>
General
Chief Complaint: Abnormal Lab Value
Source: patient and spouse
Exam Limitations: none
Time Seen by Provider: 08/18/25 17:53
Nursing documentation reviewed up to this point in time: agreed with
History of Present Illness
History of Present Illness:
Patient to the emergency department for evaluation of dark stools, low hemoglobin. Patient states she has had diarrhea for the past 2 days. She had 2 episodes of diarrhea today prior to arrival. Outpatient labs completed at her facility and she
was sent to the emergency department for hemoglobin of 6.2. She denies any abdominal pain. Reports weakness and fatigue.
Past History
<Kaci Rocha MASTER SHIP - Last Filed: 08/20/25 14:54>
Past History
ED Past Medical History: CAD, GERD, HTN, Hypercholesterolemia and Other (Iron deficiency anemia, peptic ulcer disease)
ED Past Surgical History: Cholecystectomy and Other (Partial gastrectomy)
Social History
Tobacco: Smoker
Alcohol: None
Drug: None
Personal:
Living: with family
Review of Systems
<Kaci Rocha MASTER SHIP - Last Filed: 08/20/25 14:54>
Review of Systems
Allergies reviewed?: Yes
All Other Systems: ROS reviewed and negative except as documented in HPI and ROS
Constitutional: Reports fatigue
EENT: Reports no symptoms
Respiratory: Reports no symptoms
Cardiac: Reports no symptoms
ABD/GI: Reports diarrhea (heme pos)
: Reports no symptoms
Musculoskeletal: Reports no symptoms
Skin: Reports no symptoms
Neurological: Reports weakness
Psychiatric: Reports no symptoms
Phy Exam
<Kaci Rocha NP - Last Filed: 08/20/25 14:54>
General Physical Exam
General Presentation: moderate distress
General age: appears stated age
General Skin: pale
General Habitus: cachetic and frail
General Mental: alert
Cardiovascular Exam
Cardiovascular Exam: regular rate/rhythm and no edema
Gastrointestinal Exam
Gastrointestinal Exam: normal bowel sounds, non tender, soft, no organomegaly, no pulsatile mass and non distended
Rectal Exam: normal external exam and normal sphincter tone
Stool: black
Guaiac Status: positive
Musculoskeletal Exam
Musculoskeletal Exam: full ROM and neuro vasc intact
Skin Exam
Skin Exam: normal color, warm/dry and no rash
Psychiatric Exam
Psychiatric Exam: normal mood/affect
Course
<Kaci Rocha MASTER SHIP - Last Filed: 08/20/25 14:54>
Orders/Labs/Results
Orders:
Orders
08/18/25 18:42
Pantoprazole [Protonix IV] 40 mg IV NOW STA
08/18/25 18:43
Urinalysis Reflex To Culture Urgent
Date Specimen was Collected: 08/19/25
Time Specimen was Collected: 10:21
0.9% Sodium Chloride 1000 ml [Nss] 1,000 ml IV BOLUS
08/18/25 18:48
Type+Screen Urgent
Complete Blood Count/With Diff Urgent
Comprehensive Metabolic Panel Urgent
Lipase Urgent
08/18/25 19:15
* Blood Bank Products Urgent
Blood Bank Products: *Packed RBC Leuko (PRBC's
Quantity: 2
Transfuse Today: Yes
Reason: Anemia
08/18/25 21:13
Admit/Transfer Patient As Directed
Co-Sign Provider:
Level of Care: Inpatient admission
Assign to:: Telemetry
Physician / Group: Rohini
Diagnosis: GI bleed
Reason for Telemetry: Other
Other Reason for Telemetry: GI bleed
Date to Stop Telemetry: 08/20/25
Time to Stop Telemetry: 11:00
Reason for Hospitalization: GI bleed
Expected length of stay greater than two midnights?: Yes
ELOS- Estimated Length of Stay in days: 2
I certify the patient meets the requirements for IP care: Yes
PRN Pain Medication Management As Directed
May give lesser potent ordered pain med per pt: Yes
preference::
Protocol:: Medication orders for pain may be administered in a
manner that supports deferring to patient preference
when the pt is:
- Requesting an ordered lesser potent pain medication.
Least to most potent pain medications are defined
as: acetaminophen < NSAID < tramadol < opioids
(morphine, oxycodone, hydromorphone).
- Requesting a lesser dose of the same medication IF
ORDERED.
- Requesting a less intrusive route of administration
if both routes are prescribed by the provider (PO <
IV).
08/18/25 21:14
Code Status As Directed
Resuscitation Status: Do not resuscitate
Reached after discussion with pt or family/Healthcare POA: Yes
08/18/25 21:15
DNR Bracelet Application ONCE
08/19/25 00:35
Dextrose 5%/0.45%Sodchl 1000ML [D5/0.45%NaCl] 1,000 ml IV 50 mls/hr
08/19/25 00:35
GASTROINTESTINAL CONSULT Routine
Consulting Provider: Dhruv Hamilton
Was physician already notified: Yes
Activity As Directed
Activity Level: With Assistance
INT (Intravenous Needle Therapy) As Directed
Comment: Place 2 IV catheters of the largest bore possible until stable
Orthostatic Vital Signs As Directed
Orthostatic VS Frequency: Daily
Pneumatic Compression Sleeves As Directed
Type: Knee high
Vital Signs As Directed
Frequency: q4h
Wound Care As Directed
Location of Wound: abdomen
Treatment of Wound: Cleanse abdominal wound with normal saline, packed base and undermining wound with 1/4
inch lodafoam lightly packing, cover with border foam dressing, change daily and as
needed
DX Deep Vein Thrombosis Video Routine
08/19/25 02:00
Mirtazapine [Remeron] 7.5 mg PO HS
Tramadol HCl [Ultram] 50 mg PO HS
08/19/25 08:00
Carvedilol [Coreg] 6.25 mg PO BID
Pantoprazole [Protonix IV] 40 mg IV BID
08/19/25 10:00
Tramadol HCl [Ultram] 50 mg PO Q8HPRN PRN moderate pain moderate pain
08/20/25 11:00
DC Protocol for Telemetry ONCE
Abnormal Lab Results
08/18/25
18:48
WBC 2.8 L 10^3/uL
(4.8-10.8)
RBC 2.29 L 10^6/uL
(4.20-5.40)
Hgb 6.2 L* g/dL
(12.0-16.0)
Hct 21.0 L %
(37.0-47.0)
MCHC 29.5 L g/dL
(33.0-37.0)
RDW 27.9 H %
(11.5-14.5)
Absolute Lymphs (auto) 0.6 L 10^3/uL
(1.2-3.4)
Potassium 3.0 L mmol/L
(3.5-5.1)
BUN 45 H mg/dl
(7-17)
Glucose 113 H mg/dl
(70-99)
Total Protein 5.7 L g/dl
(6.3-8.2)
Albumin 2.8 L g/dl
(3.5-5.0)
Crossmatch IS Only See Detail
08/18/25 18:48
08/18/25 18:48
Vital Signs
Initial and Last Documented VS:
Initial Vital Signs
Pulse Resp BP
67 18 120/59
08/18/25 17:57 08/18/25 17:57 08/18/25 17:57
Last Documented Vital Signs
Temp Pulse Resp BP Pulse Ox
97.6 F 60 20 147/61 96
08/20/25 11:00 08/20/25 11:00 08/20/25 11:00 08/20/25 11:00 08/20/25 11:00
<Ana M Lorenzo MD - Last Filed: 08/18/25 19:30>
Orders/Labs/Results
Orders:
Orders
08/18/25 18:42
Pantoprazole [Protonix IV] 40 mg IV NOW STA
08/18/25 18:43
Urinalysis Reflex To Culture Urgent
Date Specimen was Collected: 08/19/25
Time Specimen was Collected: 10:21
0.9% Sodium Chloride 1000 ml [Nss] 1,000 ml IV BOLUS
08/18/25 18:48
Type+Screen Urgent
Complete Blood Count/With Diff Urgent
Comprehensive Metabolic Panel Urgent
Lipase Urgent
08/18/25 19:15
* Blood Bank Products Urgent
Blood Bank Products: *Packed RBC Leuko (PRBC's
Quantity: 2
Transfuse Today: Yes
Reason: Anemia
08/18/25 21:13
Admit/Transfer Patient As Directed
Co-Sign Provider:
Level of Care: Inpatient admission
Assign to:: Telemetry
Physician / Group: Pearlro
Diagnosis: GI bleed
Reason for Telemetry: Other
Other Reason for Telemetry: GI bleed
Date to Stop Telemetry: 08/20/25
Time to Stop Telemetry: 11:00
Reason for Hospitalization: GI bleed
Expected length of stay greater than two midnights?: Yes
ELOS- Estimated Length of Stay in days: 2
I certify the patient meets the requirements for IP care: Yes
PRN Pain Medication Management As Directed
May give lesser potent ordered pain med per pt: Yes
preference::
Protocol:: Medication orders for pain may be administered in a
manner that supports deferring to patient preference
when the pt is:
- Requesting an ordered lesser potent pain medication.
Least to most potent pain medications are defined
as: acetaminophen < NSAID < tramadol < opioids
(morphine, oxycodone, hydromorphone).
- Requesting a lesser dose of the same medication IF
ORDERED.
- Requesting a less intrusive route of administration
if both routes are prescribed by the provider (PO <
IV).
08/18/25 21:14
Code Status As Directed
Resuscitation Status: Do not resuscitate
Reached after discussion with pt or family/Healthcare POA: Yes
08/18/25 21:15
DNR Bracelet Application ONCE
08/19/25 00:35
Dextrose 5%/0.45%Sodchl 1000ML [D5/0.45%NaCl] 1,000 ml IV 50 mls/hr
08/19/25 00:35
GASTROINTESTINAL CONSULT Routine
Consulting Provider: Dhruv Hamilton
Was physician already notified: Yes
Activity As Directed
Activity Level: With Assistance
INT (Intravenous Needle Therapy) As Directed
Comment: Place 2 IV catheters of the largest bore possible until stable
Orthostatic Vital Signs As Directed
Orthostatic VS Frequency: Daily
Pneumatic Compression Sleeves As Directed
Type: Knee high
Vital Signs As Directed
Frequency: q4h
Wound Care As Directed
Location of Wound: abdomen
Treatment of Wound: Cleanse abdominal wound with normal saline, packed base and undermining wound with 1/4
inch lodafoam lightly packing, cover with border foam dressing, change daily and as
needed
DX Deep Vein Thrombosis Video Routine
08/19/25 02:00
Mirtazapine [Remeron] 7.5 mg PO HS
Tramadol HCl [Ultram] 50 mg PO HS
08/19/25 08:00
Carvedilol [Coreg] 6.25 mg PO BID
Pantoprazole [Protonix IV] 40 mg IV BID
08/19/25 10:00
Tramadol HCl [Ultram] 50 mg PO Q8HPRN PRN moderate pain moderate pain
08/20/25 11:00
DC Protocol for Telemetry ONCE
Abnormal Lab Results
08/18/25
18:48
WBC 2.8 L 10^3/uL
(4.8-10.8)
RBC 2.29 L 10^6/uL
(4.20-5.40)
Hgb 6.2 L* g/dL
(12.0-16.0)
Hct 21.0 L %
(37.0-47.0)
MCHC 29.5 L g/dL
(33.0-37.0)
RDW 27.9 H %
(11.5-14.5)
Absolute Lymphs (auto) 0.6 L 10^3/uL
(1.2-3.4)
Potassium 3.0 L mmol/L
(3.5-5.1)
BUN 45 H mg/dl
(7-17)
Glucose 113 H mg/dl
(70-99)
Total Protein 5.7 L g/dl
(6.3-8.2)
Albumin 2.8 L g/dl
(3.5-5.0)
Crossmatch IS Only See Detail
08/18/25 18:48
08/18/25 18:48
Vital Signs
Initial and Last Documented VS:
Initial Vital Signs
Pulse Resp BP
67 18 120/59
08/18/25 17:57 08/18/25 17:57 08/18/25 17:57
Last Documented Vital Signs
Temp Pulse Resp BP Pulse Ox
97.6 F 60 20 147/61 96
08/20/25 11:00 08/20/25 11:00 08/20/25 11:00 08/20/25 11:00 08/20/25 11:00
<Kaci Rocha NP - Last Filed: 08/20/25 14:54>
*Pulse Oximetry
SaO2: 97
Oxygen Mode of Delivery: Room air
Patient hypoxic: no
*Critical Care Note
Total Time (30-74mins, 75-104mins- exclusive of procedures): Not Applicable
<Kaci Rocha NP - Last Filed: 08/20/25 14:54>
Update Note
Update Note:
Patient to emergency department for evaluation of black stools and low hemoglobin. She is currently residing at [facility] for rehab. States over the last couple days she has had soft black stools. Stool was tested by staff today and they report
stool was heme positive. She had outpatient labs and was told her hemoglobin was 6.2 so she was sent to the emergency department on arrival to ED she is awake and alert, cooperative. Very pale appearing. Vital signs are stable and she remains
afebrile. Labs reviewed. WBC of 2.8 RBC 2.29 hemoglobin 6.2 hematocrit 21. Rectal exam reveals soft black stoo, heme positive. To be transfused 2 units tonight. Will admit to the hospitalist service for anemia and GI bleeding. Protonix
initiated.
ED Attending Note
<Kaci Rocha NP - Last Filed: 08/20/25 14:54>
-
Portions of this chart may have been created with voice recognition software.� Occasional wrong word or��sound alike� substitutions may have occurred due to the inherent limitations of voice recognition software.
<Ana M Lorenzo MD - Last Filed: 08/18/25 19:30>
ED Attending Note
Patient seen and examined by attending physician: Yes
I performed the substantive portion of visit, reviewed & personally made and approve the management plan that is documented in note by myself or ARINA.: Yes
ED Attending Note:
I have seen and evaluated the patient with a fzty-wy-yjeg encounter. I have spoken to the [ARINA] and involved in the medical history, the physical exam, medical decision making.
Evaluation and management service: agree unless noted differently below.
Results interpretation: agree unless noted differently below.
Patient is a 74-year-old woman with history of upper GI bleed in the setting of known ulcers presenting to the emergency department with loose stools and concern for low hemoglobin. Per chart review patient was recently discharged after being
admitted for abdominal wound abscess. On my evaluation patient is resting comfortably. Her abdomen is soft nondistended nontender. Per ARINA patient stool is Hemoccult positive. Blood work obtained is significant for hemoglobin of 6.2. Likely in
the setting of upper GI bleed with her known ulcers. Patient will need a unit of blood. Will need admission for further monitoring and evaluation.
Discharge Plan
Departure
Patient Disposition: Admit
Date of Disposition: 08/18/25
Time of Disposition: 19:54
Presentation/result/management discussed w/ accepting MD/DO: Hospitalist
Condition: Fair
Covid-19: Not Applicable
Discharge Problem:
GI bleeding, Anemia
Interventions
Interventions:
*General Assessment Last Done: 08/18/25 19:50
*Neglect/Abuse Screening Last Done: 08/18/25 17:58
*ED COVID-19 Vaccine History Last Done: 08/18/25 17:58
*ED Influenza Vaccine History Last Done: 08/18/25 17:58
[facility] Risk Assessment Tool Last Done: 08/18/25 17:58
*Risk Screen - Suicide (C-SSRS) Last Done: 08/18/25 17:58
*Nursing Disposition Last Done: 08/19/25 00:15
Discharge Date and Time
Discharge Date/Time: 08/19/25 00:15
[2025-08-18 19:21] LABS: ALT (SGPT) 14 U/L (0-35); AST (SGOT) 14 U/L (14-36); Albumin 2.8 g/dl (3.5-5.0); Alkaline Phosphatase 73 U/L (38-126); Blood Urea Nitrogen 45 mg/dl (7-17); Calcium 8.6 mg/dl (8.4-10.2); Carbon Dioxide 23 mmol/L (22-30); Chloride 107 mmol/L (98-107); Estimated Creatinine Clearance 48 ml/min; Glucose 113 mg/dl (70-99); Lipase 68 U/L (23-300); Potassium 3.0 mmol/L (3.5-5.1); Sodium 138 mmol/L (135-145); Total Protein 5.7 g/dl (6.3-8.2); eGFR > 60.00
--- NOTE | 2025-08-18 21:01 | HPS.HSE ---
Family Physician
-
Family Physician: INTERVIEWE UNKNOWN - PT NOT
Chief Complaint
-
Melena
History of Present Illness
This is a 74-year-old female with past medical history significant for gastric cancer status post partial gastrectomy and Billroth II anastomosis in 1999, anastomotic ulcer, chronic HFrEF, status post J-tube placement on 05/02/25, arthritis, anemia of
chronic disease, iron deficiency anemia, essential thrombocytosis, severe protein calorie malnutrition, GI bleed, recent endoscopy showing now probable gastric cancer but due to significant protein calorie malnutrition decision was made to place
feeding jejunostomy tube to improve her nutritional status before considering surgery, feeding tube complicated by intra-abdominal infection sepsis and abscess and status post removal of the feeding tube who now presents to the emergency department
with episode of melena and symptomatic anemia.
Patient reports about 1-1/2 days of watery dark stool diarrhea. At the [facility] she was checked and was found to have a positive Hemoccult. She reports feeling weak and dizzy but denies lightheadedness. She denies abdominal pain. She denies
any nausea or vomiting. She is not on any antibiotics recently although she was treated for antibiotics as well as several weeks over the last few months. She is on low-dose aspirin 81 mg as well as hydroxyurea.
In ED she was afebrile, BP 118/49, pulse of 63. Hemoglobin was 6.2, down from 8.12 weeks ago. BUN is elevated at 45 with a normal creatinine of 0.7. Potassium was 3.0 the rest of the electrolytes were normal.
Hemoccult examination in the ED was positive.
Medical History
Past Medical History
Past Medical History: Reports CHF (CHF with reduced EF) and Other
Additional Past Medical History:
anemia, enterostomy infection, left bundle branch block, mitral insufficiency, bells palsy, essential thrombocytosis
Past Surgical History: Reports Other
Additional Past Surgical History:
cholecystectomy, surgery of ulcerated stomach and small intestine
Social History
Tobacco: Non-smoker
Alcohol: None
Drug: None
Personal:
Living: With Family
Family History
Family History: Not pertinent
Allergies / Home Medications
Allergies reflects when Allergies were last updated in [employer].
Home Medications with original date entered in [employer]
Allergy/Medication List:
Allergies
Allergy/AdvReac Type Severity Reaction Status Date / Time
No Known Allergies Allergy Verified 06/07/25 13:18
Home Medications
pantoprazole 40 mg tablet,delayed release 40 mg PO BID Gastrointestinal Issue 01/23/23
aspirin 81 mg tablet,delayed release 81 mg PO DAILY Heart Disease/Condition 10/08/23
ferrous sulfate 142 mg (45 mg iron) tablet,extended release 142 mg PO Q48H Supplement 10/08/23
carvedilol 12.5 mg tablet 6.25 mg PO BID Blood Pressure 11/01/24
furosemide 20 mg tablet (Lasix) 20 mg PO DAILY Heart Failure 11/01/24
cholecalciferol (vitamin D3) 25 mcg (1,000 unit) tablet (Vitamin D3) 25 mcg PO DAILY Supplement 04/20/25
acetaminophen 325 mg tablet (Tylenol) 650 mg PO Q6HPRN PRN mild pain 06/07/25
ammonium lactate 12 % lotion 1 applic topical BID blle 07/28/25
hydroxyurea 500 mg capsule 500 mg PO BID anemia 07/28/25
bisacodyl 10 mg rectal suppository (Dulcolax (bisacodyl)) 10 mg NH DAILYPRN PRN if no bm aftr mom 08/18/25
magnesium hydroxide 400 mg/5 mL oral suspension (Milk of Magnesia) 2,400 mg PO [id number] PRN constipation 08/18/25
mirtazapine 7.5 mg tablet 7.5 mg PO HS Sleep 08/18/25
sacubitril 24 mg-valsartan 26 mg tablet 1 tab PO BID Heart Disease/Condition 08/18/25
sennosides 8.6 mg-docusate sodium 50 mg tablet (Senna Plus) 1 tab PO BID Constipation 08/18/25
sodium phosphates 19 gram-7 gram/118 mL enema (Fleet Enema) 118 ml NH DAILYPRN PRN if no bm aftr dulcolax 08/18/25
tramadol 50 mg tablet 50 mg PO HS Anti-Inflammatory 08/18/25
tramadol 50 mg tablet 50 mg PO Q8HPRN PRN moderarte pain 08/18/25
Review of Systems
-
Constitutional: Reports No Symptoms
EENT: Reports No Symptoms
Respiratory: Reports No Symptoms
Cardiac: Reports No Symptoms
Abdomen/GI: Reports Diarrhea and Black Stools
: Reports No Symptoms
Musculoskeletal: Reports No Symptoms
Skin: Reports No Symptoms
Neurological: Reports No Symptoms
Endocrine: Reports No Symptoms
Hematologic/Lymphatic: Reports No Symptoms
Psych: Reports No Symptoms
Physical Exam
Vital Signs
Vital Signs
Temp Pulse Resp BP Pulse Ox
98.0 F 64 16 130/52 97
08/18/25 20:58 08/18/25 20:58 08/18/25 20:58 08/18/25 20:58 08/18/25 19:20
Physical Exam
General: No Apparent Distress, Comfortable and Cachectic
HEENT: NormoCephalic, Anicteric, Moist mucous membranes, PERRLA and Mazon Conjunctivae
Respiratory: Clear
Cardiac: S1/S2 and Regular Rhythm
Breast: Deferred by me
GI: Soft, Non Tender and Non Distended
Rectal: Black and Hem Positive
Genito-urinary: Deferred by me
Musculoskeletal: No Clubbing, No Cyanosis and No Edema
Skin: Warm
Neuro: AO x 3 and Nonfocal/grossly intact
Hematologic/Lymphatic: No Lymphadenopathy
Psych: Calm
Laboratory Results
-
08/18/25 18:48
08/18/25 18:48
Laboratory Results
Total Bilirubin 0.2 mg/dl (0.2-1.3) 08/18/25 18:48
AST 14 U/L (14-36) 08/18/25 18:48
ALT 14 U/L (0-35) 08/18/25 18:48
Alkaline Phosphatase 73 U/L (38-126) 08/18/25 18:48
Lipase 68 U/L (23-300) 08/18/25 18:48
Data Reviewed
-
Lab Data: Labs Reviewed by me
Old Records: Reviewed
Impression/Plan
-
IMPRESSION:
74 y.o female with history of gastric cancer status post partial gastrectomy, history of peptic ulcer possible recurrence of the gastric cancer but due to severe protein calorie malnutrition cannot undergo surgery at this time, status post GJ tube
complicated by intra-abdominal abscess status post removal of the tube and, antibiotic treatment for the abscess wound presents to the emergency department with melena.
PLAN:
GI bleed -suspect upper GI bleed likely stemming from a duodenal source, patient is hemodynamically stable with hemoglobin of 6.2.
�Admit to telemetry
� Type and screen and transfuse for hemoglobin greater than 7
� Trend H&H
� Will start PPI IV twice daily for now
� Hold aspirin and hydroxyurea for now
�N.p.o.
� GI consultation
CHF with reduced EF
� Hold Entresto
�Hold furosemide
� Continue carvedilol 6.25 mg p.o. twice daily with hold parameters
DVT prophylaxis�SCDs
CODE STATUS�DNR
[2025-08-19] VITALS (10 sets, daily range): BP systolic 111–161; BP diastolic 57–71; BMI 14.0
[2025-08-19] MEDS: ULTRAM 50 MG PO ×2 (01:53→23:00)
[2025-08-19] MEDS: REMERON 7.5 MG PO ×2 (01:53→23:00)
--- NOTE | 2025-08-19 02:27 | PTCARENOTE ---
Pt arrived to unit via stretcher as an admit from ED. Pt AAOx3. Denies any acute pain. Afebrile, VSS. PIV x 2 to R arm. Pt received 1 unit PRBCs in ED. Second unit of PRBCs infusing at this time. Bed in lowest position and call fajardo within
reach. Bed alarm in place.
[2025-08-19] MEDS: D5/0.45%NACL 1000 IV (04:48)
--- NOTE | 2025-08-19 06:30 | CON.GI ---
Consultation
-
Date/Time Consultation Requested: 08/19/25 00:35
Date/Time Consultation Performed: 08/19/25 06:30
Requesting Provider: Randy Nova MD
Performing Provider: Dhruv Hamilton DO
Reason for Consultation: GI Bleed
Medical History
Chief Complaint / HPI
Chief Complaint: Abnormal Lab Value
History of Present Illness:
Ms. 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
malnutrition, and cachexia s/p prior J-tube placement (c/b intra-abdominal abscess s/p removal) who presented to the ED with dark stools and symptomatic anemia. GI has been consulted for further evaluation and management.
Patient is somewhat a limited historian however notes darker, black stools at home while at her nursing. Hemoccult testing was performed at her facility and reportedly positive. Notes weakness and generalized fatigue as well but no other abdominal
pain/discomfort, nausea/vomiting or other overtly bloody stools. She was previously on antibiotics over the past few weeks given her prior infection, however denies any other fevers or chills. She is on low dose ASA but denies any other blood
thinners or antiplatelets. Reports ongoing black stools over the past two days but no other NSAID or significant alcohol use. She was found to have outpatient blood work at her facility with a Hgb 6.2 and advised to come to the ED for further
evaluation. Of note, she previously underwent a prior EGD back on 02/2025 which demonstrated mucosal changes with BE, food in stomach, and Billroth II with ulcerated mucosa at anastomosis. Of note, she was previously evaluated by the GI team back on
05/29/25 and prior endoscopic evaluation was deferred as felt to have recurrent bleeding from known anastomotic ulcer and again concern LGD from anastomotic ulceration. Previously evaluated by Dr. Brown however not felt to be a surgical candidate. Of
note, patient was scheduled for repeat EGD as an outpatient back on 06/22/[address] Tracey however this was deferred given her recent hospitalization for abdominal wall abscess and yet to be rescheduled.
02/28/25- EGD (Alexy): Esophageal mucosal changes suspicious for Catalan's esophagus. (Indefinite for dysplasia arising in a background of intestinal metaplasia and ulceration/inflammation), A medium amount of food (residue) in the stomach Removal was
successful - Billroth II gastrojejunostomy was found, characterized by nodularity, edema and ulceration-Granular, nodular and ulcerated mucosa at anastomosis.(Small intestinal mucosa with low-grade dysplasia, in a background of ulceration and
acutely inflamed granular tissue). Multiple gastric polyps. (Hyperplastic polyp with acutely inflamed granulation tissue and reactive changes, no evidence for dysplasia).
In the ED, patient was afebrile and HD-stable. Labs notable for BUN 45, Broke Beater Operator 0.7, and Hgb 6.2 (previously 8.1 on 08/01/25) and found to have hemoccult positive stools. She was started on IV PPI and admitted to medicine for further management.
Past Medical History
Past Medical History: Other (Reports CHF (CHF with reduced EF), anemia, enterostomy infection, left bundle branch block, mitral insufficiency, bells palsy, essential thrombocytosis)
Past Surgical History: Other (cholecystectomy, surgery of ulcerated stomach and small intestine)
Social History
Tobacco: Non-Smoker
Alcohol: None
Drug: None
Personal:
Living: With Family
Family History
Family History: Reviewed & Not Pertinent
Allergies / Home Medications
Allergy/AdvReac Type Severity Reaction Status Date / Time
No Known Allergies Allergy Verified 06/07/25 13:18
�Medication �Instructions �Recorded
pantoprazole 40 mg tablet,delayed 40 mg PO BID Gastrointestinal Issue 01/23/23
release
aspirin 81 mg tablet,delayed 81 mg PO DAILY Heart 10/08/23
release Disease/Condition
ferrous sulfate 142 mg (45 mg 142 mg PO Q48H Supplement 10/08/23
iron) tablet,extended release
carvedilol 12.5 mg tablet 6.25 mg PO BID Blood Pressure 11/01/24
furosemide 20 mg tablet (Lasix) 20 mg PO DAILY Heart Failure 11/01/24
cholecalciferol (vitamin D3) 25 25 mcg PO DAILY Supplement 04/20/25
mcg (1,000 unit) tablet (Vitamin
D3)
acetaminophen 325 mg tablet 650 mg PO Q6HPRN PRN mild pain 06/07/25
(Tylenol)
ammonium lactate 12 % lotion 1 applic topical BID blle 07/28/25
hydroxyurea 500 mg capsule 500 mg PO BID anemia 07/28/25
bisacodyl 10 mg rectal suppository 10 mg GA DAILYPRN PRN if no bm 08/18/25
(Dulcolax (bisacodyl)) aftr mom
magnesium hydroxide 400 mg/5 mL 2,400 mg PO [id number] PRN 08/18/25
oral suspension (Milk of Magnesia) constipation
mirtazapine 7.5 mg tablet 7.5 mg PO HS Sleep 08/18/25
sacubitril 24 mg-valsartan 26 mg 1 tab PO BID Heart 08/18/25
tablet Disease/Condition
sennosides 8.6 mg-docusate sodium 1 tab PO BID Constipation 08/18/25
50 mg tablet (Senna Plus)
sodium phosphates 19 gram-7 118 ml GA DAILYPRN PRN if no bm 08/18/25
gram/118 mL enema (Fleet Enema) aftr dulcolax
tramadol 50 mg tablet 50 mg PO HS Anti-Inflammatory 08/18/25
tramadol 50 mg tablet 50 mg PO Q8HPRN PRN moderarte pain 08/18/25
Review of Systems
-
All other systems: A 12 pt ROS was Negative except as stated above in HPI
Vital Signs
Temp Pulse Resp BP Pulse Ox
97.6 F 56 18 136/62 96
08/19/25 04:46 08/19/25 04:46 08/19/25 04:46 08/19/25 04:46 08/19/25 04:46
Physical Exam
Exam
General: Comfortable and Other (Thin, chronically-ill, cachectic appearing female)
HEENT: Anicteric and Moist Mucous Membranes
Respiratory: Other (Normal WOB on room air)
GI: Soft, Non Tender and Non Distended
Skin: Warm
Neuro: AO x 3 and Nonfocal/Grossly Intact
Psych: Calm
Results
WBC 2.8 10^3/uL (4.8-10.8) L 08/18/25 18:48
Hgb Cancelled 08/19/25 21:00
Hct Cancelled 08/19/25 21:00
MCV 91.7 fL (81.0-99.0) 08/18/25 18:48
Plt Count 214 10^3/uL (130-400) 08/18/25 18:48
Absolute Neuts (auto) 1.9 10^3/uL (1.4-6.5) 08/18/25 18:48
Sodium Cancelled 08/19/25 03:00
Potassium Cancelled 08/19/25 03:00
Chloride Cancelled 08/19/25 03:00
Carbon Dioxide Cancelled 08/19/25 03:00
BUN Cancelled 08/19/25 03:00
Creatinine Cancelled 08/19/25 03:00
Calcium Cancelled 08/19/25 03:00
Total Bilirubin 0.2 mg/dl (0.2-1.3) 08/18/25 18:48
AST 14 U/L (14-36) 08/18/25 18:48
ALT 14 U/L (0-35) 08/18/25 18:48
Alkaline Phosphatase 73 U/L (38-126) 08/18/25 18:48
Lipase 68 U/L (23-300) 08/18/25 18:48
Diagnostic Image Results:
7/1/25- EGD (Alexy): Esophageal mucosal changes suspicious for Catalan's esophagus. (Indefinite for dysplasia arising in a background of intestinal metaplasia and ulceration/inflammation), A medium amount of food (residue) in the stomach Removal was
successful - Billroth II gastrojejunostomy was found, characterized by nodularity, edema and ulceration-Granular, nodular and ulcerated mucosa at anastomosis.(Small intestinal mucosa with low-grade dysplasia, in a background of ulceration and
acutely inflamed granular tissue). Multiple gastric polyps. (Hyperplastic polyp with acutely inflamed granulation tissue and reactive changes, no evidence for dysplasia).
Prior CT A/p
1. Small 3.8 cm left periumbilical collection of fluid and air in the subcutaneous fat of the anterior abdominal wall.
2. Severe distention of the proximal stomach.
3. Previous Billroth II gastrojejunostomy with acute enteritis and ulceration of the proximal jejunal loops (probably causing a partial obstruction or delayed gastric emptying).
4. Mild to moderate biliary dilatation.
5. Severe calcific atherosclerotic plaque in the abdominal aorta and common iliac arteries.
6. Severe diverticulosis in the sigmoid colon.
7. Moderate chronic bilateral renal disease.
8. Small volume pelvic ascites.
9. Severe multilevel lumbar discogenic degenerative disease.
Assessment / Plan
-
Ms. 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
malnutrition, and cachexia s/p prior J-tube placement (c/b intra-abdominal abscess s/p removal) who presented to the ED with dark stools and symptomatic anemia. GI has been consulted for further evaluation and management.
#Melena
#Symptomatic Anemia #Acute Blood Loss Anemia
#Acute on Chronic SANDI
#Hx of Gastrectomy/Billroth II
#Hx of Anastomotic Ulceration with LGD c/f malignancy (02/2025)
#Hx of Gastroparesis
#Hx of Previous Abdominal Abscess with prior J-tube (now removed)
#Catalan's Indefinite for Dysplasia
Impression: Patient presenting with dark stools consistent with melena along with symptomatic anemia with acute on chronic anemia secondary to blood loss. Clinically, suspect she is likely oozing from her known anastomotic ulcer given her anemia
and elevated BUN and potentially recurrent disease as she previously had low-grade dysplasia from her anastomotic ulcer and previously eval with Dr. Jesse Brown in the past however not felt to be a surgical candidate at that time. She was previously
evaluated by GI in the past back on 05/2025 and repeat EGD was deferred due to her infection. She was scheduled for repeat EGD back on 05/2025 to reevaluate her anastomotic ulcer but again was deferred given her abdominal wall abscess/previous
hospitalization. She currently remains hemodynamically stable and without any signs suggest brisk bleeding. She would benefit from a repeat EGD for both potential therapeutic and primarily for prognostic purposes given the concern for her previous
biopsies demonstrating low-grade dysplasia and potential concern for malignancy. Favor continuing CLD over weekend given her previous retained food during her prior EGD and known gastroparesis.
Recommendations:
- Okay for CLD, defer from advancing over weekend
- Trend Hgb with serial CBC, transfuse as needed
- Repeat iron studies as suspect would benefit from IV iron
- IV PPI 40 mg BiD
- Plan for EGD early next week on 08/21/25 for further evaluation given known anastomotic ulceration and would plan to obtain repeat biopsies
- Recommend ongoing GOC / palliative care discussions this admission
- IV anti-emetics PRN
- Rest of care as per primary team
GI will continue to follow. Discussed with primary internal medicine team this AM.
Data Reviewed
-
Radiology: Report Reviewed by me
CT Scan: Report Reviewed by me
Old Records: Reviewed
-
-
Thank you for consultation and allowing me to participate in the patient's care. Please call the project construction manager GI physician during the after hours with any questions or concerns.
[2025-08-19] MEDS: COREG PO (08:25)
[2025-08-19] MEDS: NSS (PRESERVATIVE FREE) 10 ML IV ×2 (08:25→23:01)
[2025-08-19] MEDS: PROTONIX IV 40 MG IV ×2 (08:26→23:01)
[2025-08-19 08:28] LABS: Hematocrit 26.5 % (37.0-47.0); Hemoglobin 8.4 g/dL (12.0-16.0)
[2025-08-19 10:37] LABS: Blood Urea Nitrogen 34 mg/dl (7-17); Calcium 8.5 mg/dl (8.4-10.2); Carbon Dioxide 22 mmol/L (22-30); Chloride 112 mmol/L (98-107); Estimated Creatinine Clearance 49 ml/min; Glucose 71 mg/dl (70-99); Iron 202 ug/dl (37-170); Potassium 2.6 mmol/L (3.5-5.1); Sodium 140 mmol/L (135-145); Total Iron Binding Capacity 229 ug/dl (265-497); eGFR > 60.00
[2025-08-19 10:55] LABS: Urine Character Clear (Clear)
--- NOTE | 2025-08-19 11:27 | W.PN.HOSP.TC ---
Today's Communication/Plan
-
see outlined plan below
Assessment / Plan
Assessment / Plan
Assessment:
Melena
Acute symptomatic GI bleed
acute blood loss anemia on chronic iron deficiency anemia
- check iron studies; hold oral iron. IV iron course
- s/p 2 units PRBC; trend Hb
- GI consulted; EGD Thursday
- diet: clears
Hypokalemia
- replete IV and oral
- follow AM labs
Residual Abdominal abscess/infection at J tube site
Partial gastrectomy Billroth II gastrojejunostomy/ Had J-tube placed on 04/28/2025 due to cachexia, weight loss, gastroparesis, low-grade dysplasia and ulceration at anastomosis
- s/p antibiotic course in May
- not candidate for replacement per Dr. Brown, patient tolerating oral foods
Severe protein calorie malnutrition due to chronic illness/gastroparesis
- diet: clears + supplements
- Patient is on Remeron for appetite
hxt of GI ulceration proximal jejunum
Catalan's esophagus/GERD
- Continue Carafate 1 g p.o. ACHS, Protonix 40 mg twice daily
Chronic HFrEF
- hold Entresto and Lasix
Essential HTN
- continue Coreg/Entresto
CAD
- Aspirin held
Arthritis
- Tramadol continued
Chronic ambulatory dysfunction
DVT ppx: Lovenox
Code: DNR/DNI
Anticipated Discharge: > 48 hours
Subjective/Interval History
-
Date of Service: August 19, 2025
s/p 2 unit PRBC and repeat AM Hb is 8.4
agrees to EGD Thursday
Objective Data
-
Labs:
Laboratory Results
08/19/25 08/19/25 08/19/25
03:00 06:33 09:00
Hgb Cancelled 8.4 L D Cancelled
Hct Cancelled 26.5 L Cancelled
Sodium Cancelled 140
Potassium Cancelled 2.6 L*
Chloride Cancelled 112 H
Carbon Dioxide Cancelled 22
BUN Cancelled 34 H
Creatinine Cancelled 0.6
Glucose Cancelled 71
Calcium Cancelled 8.5
08/19/25 08/19/25 08/19/25
12:00 15:00 18:00
Hgb Pending Cancelled Pending
Hct Pending Cancelled Pending
Sodium
Potassium
Chloride
Carbon Dioxide
BUN
Creatinine
Glucose
Calcium
08/19/25
21:00
Hgb Cancelled
Hct Cancelled
Sodium
Potassium
Chloride
Carbon Dioxide
BUN
Creatinine
Glucose
Calcium
Vital Signs:
Vital Signs
Temp Pulse Resp BP Pulse Ox
97.3 F 57 17 123/68 96
08/19/25 08:40 08/19/25 08:40 08/19/25 08:40 08/19/25 08:40 08/19/25 08:40
I&O
08/18/25 08/19/25 08/20/25
06:59 06:59 06:59
Intake Total 500 / 500
Balance 500 / 500
Physical Exam
-
General: No Apparent Distress
HEENT: Normocephalic and Atraumatic
Respiratory: Negative Wheezes
Cardiac: Regular Rhythm
GI: Soft
Genito-urinary: No Costovertebral Tender
Neuro: AO x 3
Psych: Calm
Data Reviewed
-
Total Time Spent with Patient (in minutes): 42
Labs: Labs Reviewed by me
[2025-08-19] MEDS: KCL 270 MEQ IV (11:41)
[2025-08-19] MEDS: KCL 40 MEQ PO (11:42)
[2025-08-19 12:14] LABS: Hematocrit 25.9 % (37.0-47.0); Hemoglobin 8.4 g/dL (12.0-16.0)
[2025-08-19 13:31] LABS: Urine Squamous Cell 16-20 /LPF (Few); Urine White Cell 30-40 /HPF (0-5)
[2025-08-19] MEDS: FERRLECIT 110 MG IV (14:31)
[2025-08-19 18:54] LABS: Hematocrit 23.3 % (37.0-47.0); Hemoglobin 7.5 g/dL (12.0-16.0)
[2025-08-19] MEDS: COREG 6.25 MG PO (23:00)
[2025-08-19] MEDS: HYDREA 500 MG PO (23:00)
[2025-08-20] VITALS (7 sets, daily range): BP systolic 121–147; BP diastolic 61–76
[2025-08-20 01:06] LABS: Hematocrit 25.8 % (37.0-47.0); Hemoglobin 7.9 g/dL (12.0-16.0)
--- NOTE | 2025-08-20 06:35 | W.PN.GI.CBS2 ---
Today's Communication / Plan
-
Plan for EGD tomorrow, 08/21/25. Rest of care as outlined below.
Assessment / Plan
-
Ms. 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
malnutrition, and cachexia s/p prior J-tube placement (c/b intra-abdominal abscess s/p removal) who presented to the ED with dark stools and symptomatic anemia. GI has been consulted for further evaluation and management.
#Melena
#Symptomatic Anemia #Acute Blood Loss Anemia
#Acute on Chronic SANDI
#Hx of Gastrectomy/Billroth II
#Hx of Anastomotic Ulceration with LGD c/f malignancy (02/2025)
#Hx of Gastroparesis
#Hx of Previous Abdominal Abscess with prior J-tube (now removed)
#Catalan's Indefinite for Dysplasia
Impression: Patient presenting with dark stools consistent with melena along with symptomatic anemia with acute on chronic anemia secondary to blood loss. Clinically, suspect she is likely oozing from her known anastomotic ulcer given her anemia
and elevated BUN and potentially recurrent disease as she previously had low-grade dysplasia from her anastomotic ulcer and previously eval with Dr. Jesse Brown in the past however not felt to be a surgical candidate at that time. She was previously
evaluated by GI in the past back on 05/2025 and repeat EGD was deferred due to her infection. She was scheduled for repeat EGD back on 05/2025 to reevaluate her anastomotic ulcer but again was deferred given her abdominal wall abscess/previous
hospitalization. She currently remains hemodynamically stable and without any signs suggest brisk bleeding. She would benefit from a repeat EGD for both potential therapeutic and primarily for prognostic purposes given the concern for her previous
biopsies demonstrating low-grade dysplasia and potential concern for malignancy. Favor continuing CLD over weekend given her previous retained food during her prior EGD and known gastroparesis.
S/p 2 uPRBCs since admission for Hgb 6.2 -> 8.4 -> 7.5 -> 7.9 along with BUN 45 -> 34 -> 20. No signs to suggest brisk GI bleeding since admission.
Recommendations:
- Continue CLD, keep NPO at MN
- Trend Hgb with serial CBC, transfuse as needed
- Agree with IV iron while inpatient
- IV PPI 40 mg BiD
- Hold Carafate as not to obscure mucosa during upper endoscopy
- Plan for EGD tomorrow, 08/21/25, for further evaluation given known anastomotic ulceration and would plan to obtain repeat biopsies. Discussed benefits and risks at bedside. Patient wishes to proceed with EGD
- Recommend ongoing GOC / palliative care discussions this admission pending EGD
- Continue Remeron qhs
- IV anti-emetics PRN
- Rest of care as per primary team
GI will continue to follow.
Subjective
Subjective
Date of Service: August 20, 2025
- S/p 2 uPRBCs since admission for Hgb 6.2 -> 8.4 -> 7.5 -> 7.9 along with BUN 45 -> 34
- Otherwise, no acute events overnight
Feeling well, resting comfortably in bed. Denies any recent melena or bloody stools. No other abdominal pain, dyspepsia or nausea/vomiting. Amenable in regards to proceeding with EGD tomorrow, 08/21/25.
Objective
Data Reviewed
Laboratory Data:
Laboratory Results
Total Bilirubin 0.2 mg/dl (0.2-1.3) 08/18/25 18:48
AST 14 U/L (14-36) 08/18/25 18:48
ALT 14 U/L (0-35) 08/18/25 18:48
Alkaline Phosphatase 73 U/L (38-126) 08/18/25 18:48
Lipase 68 U/L (23-300) 08/18/25 18:48
Vital Signs and I&O:
Vital Signs
Temp Pulse Resp BP Pulse Ox
97.6 F 66 16 137/76 97
08/20/25 03:00 08/20/25 03:00 08/20/25 03:00 08/20/25 03:00 08/20/25 03:00
I&O
08/18/25 08/19/25 08/20/25
06:59 06:59 06:59
Intake Total 500 / 500 450 / 450
Balance 500 / 500 450 / 450
Physical Exam
Physical Exam
HEENT: Anicteric and Moist mucous membranes
Pulmonary: Other (Normal WOB on room air)
GI: Soft, Non Distended and Non Tender
Extremities: Other (Sarcopenic with diffuse muscle wasting)
Neuro: Other
[2025-08-20 07:29] LABS: Hematocrit 25.8 % (37.0-47.0); Hemoglobin 8.1 g/dL (12.0-16.0); Mean Corp Hgb Conc. 31.4 g/dL (33.0-37.0); Mean Corpuscular Volume 91.2 fL (81.0-99.0); Platelet Count 178 10^3/uL (130-400); Red Cell Dist. Width 24.6 % (11.5-14.5)
[2025-08-20 08:01] LABS: Blood Urea Nitrogen 20 mg/dl (7-17); Calcium 8.7 mg/dl (8.4-10.2); Carbon Dioxide 22 mmol/L (22-30); Chloride 112 mmol/L (98-107); Estimated Creatinine Clearance 49 ml/min; Glucose 67 mg/dl (70-99); Potassium 3.8 mmol/L (3.5-5.1); Sodium 139 mmol/L (135-145); eGFR > 60.00
[2025-08-20] MEDS: HYDREA 500 MG PO ×2 (09:28→21:06)
[2025-08-20] MEDS: COREG 6.25 MG PO ×2 (09:29→21:06)
[2025-08-20] MEDS: PROTONIX IV 40 MG IV ×2 (09:29→21:01)
[2025-08-20] MEDS: NSS (PRESERVATIVE FREE) 10 ML IV ×2 (09:30→21:00)
[2025-08-20 12:43] LABS: Hematocrit 27.4 % (37.0-47.0); Hemoglobin 8.5 g/dL (12.0-16.0)
[2025-08-20] MEDS: FERRLECIT 110 MG IV (13:22)
--- NOTE | 2025-08-20 14:06 | W.PN.HOSP.TC ---
Today's Communication/Plan
-
EGD 08/21
Assessment / Plan
Assessment / Plan
Assessment:
Melena
Acute symptomatic GI bleed
acute blood loss anemia on chronic iron deficiency anemia
- hold oral iron. GI recommended IV iron course
- s/p 2 units PRBC; trend Hb - most recently 8.5 at noon
- GI consulted; EGD Thursday
- diet: clears + supplements
Hypokalemia
- replete IV and oral
- follow AM labs
Residual Abdominal abscess/infection at J tube site
Partial gastrectomy Billroth II gastrojejunostomy/ Had J-tube placed on 04/28/2025 due to cachexia, weight loss, gastroparesis, low-grade dysplasia and ulceration at anastomosis
- s/p antibiotic course in May
- not candidate for replacement per Dr. Brown, patient tolerating oral foods
Severe protein calorie malnutrition due to chronic illness/gastroparesis
- diet: clears + supplements
- Patient is on Remeron for appetite
hxt of GI ulceration proximal jejunum
Catalan's esophagus/GERD
- Continue Protonix 40 mg twice daily
- holding Carafate pre EGD
Chronic HFrEF
- hold Entresto and Lasix
Essential HTN
- continue Coreg/Entresto
CAD
- Aspirin held
Arthritis
- Tramadol continued
Chronic ambulatory dysfunction
DVT ppx: Lovenox
Code: DNR/DNI
Anticipated Discharge: > 48 hours
Subjective/Interval History
-
Date of Service: August 20, 2025
no new complaints; requesting Ensure
Hb 8.5 at noon check
Objective Data
-
Labs:
Laboratory Results
08/20/25 08/20/25
06:03 12:37
WBC 3.1 L
Hgb 8.1 L 8.5 L
Hct 25.8 L 27.4 L
Plt Count 178
Sodium 139
Potassium 3.8 D
Chloride 112 H
Carbon Dioxide 22
BUN 20 H
Creatinine 0.6
Glucose 67 L
Calcium 8.7
Vital Signs:
Vital Signs
Temp Pulse Resp BP Pulse Ox
97.6 F 60 20 147/61 96
08/20/25 11:00 08/20/25 11:00 08/20/25 11:00 08/20/25 11:00 08/20/25 11:00
I&O
08/19/25 08/20/25 08/21/25
06:59 06:59 06:59
Intake Total 500 / 500 450 / 450
Balance 500 / 500 450 / 450
Physical Exam
-
General: No Apparent Distress and Appears Chronically Ill
HEENT: Normocephalic and Atraumatic
Respiratory: Negative Wheezes
Cardiac: Regular Rhythm and S1/S2
Neuro: AO x 3
Psych: Calm
Data Reviewed
-
Total Time Spent with Patient (in minutes): 42
Labs: Labs Reviewed by me
--- NOTE | 2025-08-20 15:02 | CM ---
Patient seen at bedside with
Dx: GIB
EGD 08/21
PMH: gastric cancer status post partial gastrectomy and Billroth II anastomosis in 1999, anastomotic ulcer, chronic HFrEF, status post J-tube placement on 05/02/25, arthritis, anemia of chronic disease, iron deficiency anemia, essential thrombocytosis
Patient came from [facility] where she was there for STR
She lives with her /son in a 1 story home, 2 [address]
PLOF: Walker, wheelchair
DME: walker, wheelchair, commode, grab bars
[facility]
PCP: Anitra Starks
Pharmacy: [address]
PLAN: return to [facility] to complete her STR, CM to continue to follow for discharge planning
[2025-08-20] MEDS: REMERON 7.5 MG PO (21:07)
[2025-08-20] MEDS: ULTRAM 50 MG PO (21:08)
[2025-08-21] VITALS (9 sets, daily range): BP systolic 10–149; BP diastolic 58–74; BMI 14.9
[2025-08-21] MEDS: ULTRAM 50 MG PO ×2 (03:13→21:44)
[2025-08-21 05:51] LABS: Hematocrit 27.3 % (37.0-47.0); Hemoglobin 8.6 g/dL (12.0-16.0); Mean Corp Hgb Conc. 31.5 g/dL (33.0-37.0); Mean Corpuscular Volume 90.4 fL (81.0-99.0); Platelet Count 151 10^3/uL (130-400); Red Cell Dist. Width 24.8 % (11.5-14.5)
[2025-08-21 06:12] LABS: Blood Urea Nitrogen 15 mg/dl (7-17); Calcium 9.0 mg/dl (8.4-10.2); Carbon Dioxide 21 mmol/L (22-30); Chloride 110 mmol/L (98-107); Estimated Creatinine Clearance 52 ml/min; Glucose 69 mg/dl (70-99); Potassium 4.1 mmol/L (3.5-5.1); Sodium 136 mmol/L (135-145); eGFR > 60.00
[2025-08-21] MEDS: NSS (PRESERVATIVE FREE) 10 ML IV ×2 (07:33→20:45)
[2025-08-21] MEDS: PROTONIX IV 40 MG IV ×2 (07:33→20:45)
[2025-08-21] MEDS: HYDREA 500 MG PO ×2 (07:34→21:01)
[2025-08-21] MEDS: COREG 6.25 MG PO ×2 (07:36→21:01)
[2025-08-21] MEDS: MORPHINE SULFATE 1 MG IV (08:42)
--- NOTE | 2025-08-21 09:29 | W.PN.HOSP.TC ---
Today's Communication/Plan
-
.
Assessment / Plan
Assessment / Plan
Physical Exam
General: No Apparent Distress and Appears Chronically Ill, under weight
HEENT: Normocephalic and Atraumatic
Respiratory: Negative Wheezes
Abdomen, soft, non tender.
Cardiac: Regular Rhythm and S1/S2
MSK: severe OA deformities, mostly in hands.
Neuro: AO x to self and surroundings, followed simple commands
Psych: Calm
Assessment:
Melena
Acute symptomatic GI bleed
pancytopenia
acute blood loss anemia on chronic iron deficiency anemia
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
- hold oral iron. GI recommended IV iron course
- s/p 2 units PRBC;
- GI consulted; EGD Thursday
- diet: clears + supplements
Hypokalemia
-replaced IV and oral
Residual Abdominal abscess/infection at J tube site
Partial gastrectomy Billroth II gastrojejunostomy/ Had J-tube placed on 04/28/2025 due to cachexia, weight loss, gastroparesis, low-grade dysplasia and ulceration at anastomosis
- s/p antibiotic course in May
- not candidate for replacement per Dr. Brown, patient tolerating oral foods
Severe protein calorie malnutrition due to chronic illness/gastroparesis
- diet: clears + supplements
- Patient is on Remeron for appetite
hxt of GI ulceration proximal jejunum
Catalan's esophagus/GERD
- Continue Protonix 40 mg twice daily
- holding Carafate pre EGD
Chronic HFrEF
- Resume Entresto and Lasix
Essential HTN
- continue Coreg/Entresto
CAD
- Aspirin held
Chronic pain syndrome with opioid dependency, uses Tramadol
due to severe osteoarthritis
c/w Tylenol , Tramadol
Chronic ambulatory dysfunction
DVT ppx: Lovenox
Code: DNR/DNI
Total time spent to see the patient, examine the patient, review data and lab results, discuss treatment plan with patient, nursing staff around 55 minutes
Anticipated Discharge: 24 - 48 hours
Subjective/Interval History
-
Date of Service: August 21, 2025
No chest pain or sob
No abd pain
She has pain in her joints, mostly hands
Objective Data
-
Labs:
Laboratory Results
08/21/25
05:09
WBC 3.3 L
Hgb 8.6 L
Hct 27.3 L
Plt Count 151
Sodium 136
Potassium 4.1
Chloride 110 H
Carbon Dioxide 21 L
BUN 15
Creatinine 0.6
Glucose 69 L
Calcium 9.0
Vital Signs:
Vital Signs
Temp Pulse Resp BP Pulse Ox
97.9 F 64 16 149/74 97
08/21/25 07:37 08/21/25 07:37 08/21/25 07:37 08/21/25 07:37 08/21/25 07:37
I&O
08/20/25 08/21/25 08/22/25
06:59 06:59 06:59
Intake Total 450 / 450
Balance 450 / 450
[2025-08-21] MEDS: REGLAN 5 MG IV ×3 (13:15→23:22)
[2025-08-21] MEDS: FERRLECIT 110 MG IV (13:37)
[2025-08-21] MEDS: ENTRESTO 24 MG/26 MG 1 TAB PO (21:00)
[2025-08-21] MEDS: REMERON 7.5 MG PO (21:44)
[2025-08-22 03:00] VITALS: BP 137/63
[2025-08-22 06:44] LABS: Blood Urea Nitrogen 15 mg/dl (7-17); Calcium 8.8 mg/dl (8.4-10.2); Carbon Dioxide 23 mmol/L (22-30); Chloride 106 mmol/L (98-107); Estimated Creatinine Clearance 39 ml/min; Glucose 62 mg/dl (70-99); Potassium 4.4 mmol/L (3.5-5.1); Sodium 134 mmol/L (135-145); eGFR > 60.00
[2025-08-22 06:54] LABS: Hematocrit 25.1 % (37.0-47.0); Hemoglobin 7.8 g/dL (12.0-16.0); Mean Corp Hgb Conc. 31.1 g/dL (33.0-37.0); Mean Corpuscular Volume 92.6 fL (81.0-99.0); Platelet Count 172 10^3/uL (130-400); Red Cell Dist. Width 25.3 % (11.5-14.5)
[2025-08-22 07:00] VITALS: BP 132/61
[2025-08-22] MEDS: COREG PO (07:39)
[2025-08-22] MEDS: ENTRESTO 24 MG/26 MG PO (07:39)
[2025-08-22] MEDS: LASIX PO (07:39)
[2025-08-22] MEDS: HYDREA PO (07:39)
[2025-08-22] MEDS: PROTONIX IV 40 MG IV (07:41)
[2025-08-22] MEDS: NSS (PRESERVATIVE FREE) 10 ML IV (07:41)
[2025-08-22] MEDS: REGLAN 5 MG IV (07:42)
--- NOTE | 2025-08-22 09:29 | W.PN.HOSP.TC ---
Today's Communication/Plan
-
.
Assessment / Plan
Assessment / Plan
Physical Exam
General: No Apparent Distress and Appears Chronically Ill, under weight
HEENT: Normocephalic and Atraumatic
Respiratory: Negative Wheezes
Abdomen, soft, non tender.
Cardiac: Regular Rhythm and S1/S2
MSK: severe OA deformities, mostly in hands.
Neuro: AO x to self and surroundings, followed simple commands
Psych: Calm
Assessment:
Melena
Acute symptomatic GI bleed
pancytopenia
acute blood loss anemia on chronic iron deficiency anemia
HGB 7.8, will need another unit post EGD
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
- hold oral iron. GI recommended IV iron course
- s/p 2 units PRBC;
- GI consulted; EGD Thursday was not finished due to food in stimach, for EGD today, will f/w GI recommendations.
Hypokalemia
-replaced IV and oral
Residual Abdominal abscess/infection at J tube site
Partial gastrectomy Billroth II gastrojejunostomy/ Had J-tube placed on 04/28/2025 due to cachexia, weight loss, gastroparesis, low-grade dysplasia and ulceration at anastomosis
- s/p antibiotic course in May
- not candidate for replacement per Dr. Brown, patient tolerating oral foods
Severe protein calorie malnutrition due to chronic illness/gastroparesis
- diet: clears + supplements
- Patient is on Remeron for appetite
hxt of GI ulceration proximal jejunum
Catalan's esophagus/GERD
- Continue Protonix 40 mg twice daily
- holding Carafate pre EGD
Chronic HFrEF
- Resume Entresto and Lasix
Essential HTN
- continue Coreg/Entresto
Hyponatremia
CAD
- Aspirin held
Chronic pain syndrome with opioid dependency, uses Tramadol
due to severe osteoarthritis
c/w Tylenol , Tramadol
Chronic ambulatory dysfunction
DVT ppx: Lovenox
Code: DNR/DNI
Total time spent to see the patient, examine the patient, review data and lab results, discuss treatment plan with patient, nursing staff around 57 minutes
Anticipated Discharge: Within 24 hours
Subjective/Interval History
-
Date of Service: August 22, 2025
No chest pain
No sob
Less pain in her hands
Objective Data
-
Labs:
Laboratory Results
08/22/25
05:09
WBC 4.3 L
Hgb 7.8 L
Hct 25.1 L
Plt Count 172
Sodium 134 L
Potassium 4.4
Chloride 106
Carbon Dioxide 23
BUN 15
Creatinine 0.8
Glucose 62 L
Calcium 8.8
Vital Signs:
Vital Signs
Temp Pulse Resp BP Pulse Ox
97.4 F 61 20 132/61 98
08/22/25 07:00 08/22/25 07:00 08/22/25 07:00 08/22/25 07:00 08/22/25 07:00
I&O
08/21/25 08/22/25 08/23/25
06:59 06:59 06:59
Intake Total 280 / 280
Balance 280 / 280
[2025-08-22 11:00] VITALS: BP 116/55; BP 143/62; BP_SYST 15
[2025-08-22 11:15] VITALS: BP 139/64
[2025-08-22] MEDS: FERRLECIT 110 MG IV (13:02)
[2025-08-22 15:05] VITALS: BP 138/69
[2025-08-22] MEDS: CARAFATE 1 GRAM PO ×2 (15:31→21:31)
--- NOTE | 2025-08-22 16:23 | CM ---
CM following for patient's return to [facility] when medically ready.
CM to continue to follow to coordinate patient's return to [facility] when medically stable.
[2025-08-22] MEDS: ULTRAM 50 MG PO (21:28)
[2025-08-22] MEDS: REMERON 7.5 MG PO (21:32)
[2025-08-22] MEDS: HYDREA 500 MG PO (21:32)
[2025-08-22] MEDS: COREG 6.25 MG PO (21:33)
[2025-08-22] MEDS: PROTONIX 40 MG PO (21:33)
[2025-08-22] MEDS: ENTRESTO 24 MG/26 MG 1 TAB PO (21:38)
[2025-08-22 23:23] VITALS: BP 138/66
[2025-08-23 06:17] LABS: Hematocrit 29.2 % (37.0-47.0); Hemoglobin 9.1 g/dL (12.0-16.0); Mean Corp Hgb Conc. 31.2 g/dL (33.0-37.0); Mean Corpuscular Volume 92.7 fL (81.0-99.0); Platelet Count 194 10^3/uL (130-400); Red Cell Dist. Width 25.7 % (11.5-14.5)
[2025-08-23 06:24] LABS: Blood Urea Nitrogen 13 mg/dl (7-17); Calcium 9.1 mg/dl (8.4-10.2); Carbon Dioxide 24 mmol/L (22-30); Chloride 106 mmol/L (98-107); Estimated Creatinine Clearance 52 ml/min; Glucose 77 mg/dl (70-99); Potassium 4.0 mmol/L (3.5-5.1); Sodium 133 mmol/L (135-145); eGFR > 60.00
[2025-08-23 07:30] VITALS: BP 149/72
[2025-08-23] MEDS: HYDREA 500 MG PO ×2 (08:42→20:23)
[2025-08-23] MEDS: COREG 6.25 MG PO ×2 (08:42→20:23)
[2025-08-23] MEDS: CARAFATE 1 GRAM PO ×4 (08:42→21:31)
[2025-08-23] MEDS: ENTRESTO 24 MG/26 MG 1 TAB PO ×2 (08:42→20:23)
[2025-08-23] MEDS: LASIX 20 MG PO (08:43)
[2025-08-23] MEDS: PROTONIX 40 MG PO ×2 (08:43→20:23)
--- NOTE | 2025-08-23 08:47 | W.PN.GI.CBS2 ---
Today's Communication / Plan
-
Advance diet to low residue diet and continue Ensure twice daily
Okay to DC home from a GI perspective and follow-up with Dr. Brown and Dr. Tracey
Continue oral iron as tolerated and may need to follow-up with hematology for IV iron infusions as needed
Assessment / Plan
-
Ms. 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
malnutrition, and cachexia s/p prior J-tube placement (c/b intra-abdominal abscess s/p removal) who presented to the ED with dark stools and symptomatic anemia. GI has been consulted for further evaluation and management.
#Melena
#Symptomatic Anemia #Acute Blood Loss Anemia
#Acute on Chronic SANDI
#Hx of Gastrectomy/Billroth II
#Hx of Anastomotic Ulceration with LGD c/f malignancy (02/2025)
#Hx of Gastroparesis
#Hx of Previous Abdominal Abscess with prior J-tube (now removed)
#Catalan's Indefinite for Dysplasia
Impression: Patient presenting with dark stools consistent with melena along with symptomatic anemia with acute on chronic anemia secondary to blood loss. Clinically, suspect she is likely oozing from her known anastomotic ulcer given her anemia
and elevated BUN and potentially recurrent disease as she previously had low-grade dysplasia from her anastomotic ulcer and previously eval with Dr. Jesse Brown in the past however not felt to be a surgical candidate at that time. She was previously
evaluated by GI in the past back on 05/2025 and repeat EGD was deferred due to her infection. She was scheduled for repeat EGD back on 05/2025 to reevaluate her anastomotic ulcer but again was deferred given her abdominal wall abscess/previous
hospitalization. She currently remains hemodynamically stable and without any signs suggest brisk bleeding.
S/p 2 uPRBCs since admission for Hgb 6.2 -> 8.4 -> 7.5 -> 7.9 along with BUN 45 -> 34 -> 20. No signs to suggest brisk GI bleeding since admission.
08/23 Assessment and plan
- Status post repeat EGD 08/22/2025 with multiple findings including anastomotic ulcer and also esophageal ulcer, Catalan's with also esophagitis and nodularity noted at the anastomosis. Path is pending but she does have prior history of low-grade
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
- Continue PPI twice daily indefinitely
- Continue Carafate indefinitely
- Follow-up with Dr. Jesse Brown. In the office to discuss if she is an operative candidate she was evaluated in the past
- Continue small frequent meals with Ensure clear twice daily she likes the shi flavor
- Iron deficiency anemia secondary to chronic GI blood loss and also acute blood loss anemia from chronic anastomotic non healing ulcer, Catalan's and esophagitis and esophageal ulcer noted on endoscopy 08/22 possible pill esophagitis
- Discussed with Dr. Leonides ma to [place] from a GI perspective and follow-up with Dr. Tracey in the office
Will s/o and will be available as needed
Subjective
Subjective
Date of Service: August 23, 2025
She is hungry and tolerating full liquids last night and is also trying to drink Ensure clear she likes the shi flavor, had a bowel movement yesterday which was brown, hemoglobin stable today although she looks pale. She received 1 blood
transfusion on 08/18 and another blood transfusion on 08/19 none since then
Objective
Data Reviewed
Laboratory Data:
Laboratory Results
08/23/25 05:31
08/23/25 05:31
Laboratory Results
Total Bilirubin 0.2 mg/dl (0.2-1.3) 08/18/25 18:48
AST 14 U/L (14-36) 08/18/25 18:48
ALT 14 U/L (0-35) 08/18/25 18:48
Alkaline Phosphatase 73 U/L (38-126) 08/18/25 18:48
Lipase 68 U/L (23-300) 08/18/25 18:48
Vital Signs and I&O:
Vital Signs
Temp Pulse Resp BP Pulse Ox
97.5 F 62 18 149/72 94
08/23/25 07:30 08/23/25 07:30 08/23/25 07:30 08/23/25 07:30 08/23/25 07:30
I&O
08/22/25 08/23/25 08/24/25
06:59 06:59 06:59
Intake Total 280 / 280 720 / 720
Balance 280 / 280 720 / 720
Physical Exam
Physical Exam
Cardiology: Normal Sinus Rhythm
Pulmonary: Clear
GI: Soft, Non Distended, Non Tender and Normal Bowel Sounds
--- NOTE | 2025-08-23 09:52 | W.PN.HOSP.TC ---
Today's Communication/Plan
-
dc planning
Assessment / Plan
Assessment / Plan
Physical Exam
General: No Apparent Distress and Appears Chronically Ill, under weight
HEENT: Normocephalic and Atraumatic
Respiratory: Negative Wheezes
Abdomen, soft, non tender.
Cardiac: Regular Rhythm and S1/S2
MSK: severe OA deformities, mostly in hands.
Neuro: AO x to self and surroundings, followed simple commands
Psych: Calm
Assessment:
Melena
Acute symptomatic GI bleed
pancytopenia
acute blood loss anemia on chronic iron deficiency anemia
HGB 7.8, will need another unit post EGD
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
- held oral iron. GI recommended IV iron course
- s/p 2 units PRBC;
- GI consulted; EGD 08/21 was not finished due to food in stomach,
Status post repeat EGD 08/22/2025 with multiple findings including anastomotic ulcer and also esophageal ulcer, Catalan's with also esophagitis and nodularity noted at the anastomosis. Path is pending but she does have prior history of low-grade
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
- Continue PPI twice daily indefinitely
- Continue Carafate indefinitely
Per GI: - Follow-up with Dr. Jesse Brown. In the office to discuss if she is an operative candidate.
Hypokalemia
-replaced IV and oral
Residual Abdominal abscess/infection at J tube site
Partial gastrectomy Billroth II gastrojejunostomy/ Had J-tube placed on 04/28/2025 due to cachexia, weight loss, gastroparesis, low-grade dysplasia and ulceration at anastomosis
- s/p antibiotic course in May
- not candidate for replacement per Dr. Brown, patient tolerating oral foods
Severe protein calorie malnutrition due to chronic illness/gastroparesis
- diet: clears + supplements
- Patient is on Remeron for appetite
hxt of GI ulceration proximal jejunum
Catalan's esophagus/GERD
- Continue Protonix 40 mg twice daily
- holding Carafate pre EGD
Chronic HFrEF
- Resume Entresto and Lasix
Essential HTN
- continue Coreg/Entresto
- Pancytopenia was present on admission and is now resolved.
Hyponatremia
CAD
- Aspirin held
Chronic pain syndrome with opioid dependency, uses Tramadol
due to severe osteoarthritis
c/w Tylenol , Tramadol
Chronic ambulatory dysfunction
DVT ppx: Lovenox
Code: DNR/DNI
Total time spent to see the patient, examine the patient, review data and lab results, discuss treatment plan with patient, GI doctor, nursing staff around 55 minutes
Anticipated Discharge: Within 24 hours
Subjective/Interval History
-
Date of Service: August 23, 2025
Objective Data
-
Labs:
Laboratory Results
08/23/25
05:31
WBC 4.3 L
Hgb 9.1 L
Hct 29.2 L
Plt Count 194
Sodium 133 L
Potassium 4.0
Chloride 106
Carbon Dioxide 24
BUN 13
Creatinine 0.6
Glucose 77
Calcium 9.1
Vital Signs:
Vital Signs
Temp Pulse Resp BP Pulse Ox
97.5 F 62 18 149/72 94
08/23/25 07:30 08/23/25 08:42 08/23/25 07:30 08/23/25 08:42 08/23/25 07:30
I&O
08/22/25 08/23/25 08/24/25
06:59 06:59 06:59
Intake Total 280 / 280 720 / 720
Balance 280 / 280 720 / 720
[2025-08-23 09:55] LABS: Iron 25 ug/dl (37-170)
[2025-08-23 10:04] LABS: Total Iron Binding Capacity 211 ug/dl (265-497)
--- NOTE | 2025-08-23 11:27 | PN.CDI ---
CDI
- -
CDI:
Physician Documentation Request
Admit Date: 08/18/25 21:37
Dear Doctor,
Patient admitted for GI bleed.
08/22 Hospitalist PN: 'pancytopenia, acute blood loss anemia on chronic iron deficiency anemia'
Laboratory Tests
08/21/25 08/22/25 08/23/25
05:09 05:09 05:31
WBC 3.3 L 4.3 L 4.3 L
RBC 3.02 L 2.71 L 3.15 L
Hgb 8.6 L 7.8 L 9.1 L
Plt Count 151 172 194
Please clarify the following:
____ - Pancytopenia was present on admission and is now resolved.
____ - Pancytopenia was present on admission and is still being monitored, evaluated or treated
____ - Pancytopenia was ruled out
____ - Pancytopenia is still a likely, suspected, probable diagnosis
____ - Other
____ - Unable to determine
Use of terms such as suspected, likely, concern for, or probable (associated with a specific diagnosis that is being evaluated, monitored, or treated as if it exists) are acceptable and can be coded in the inpatient setting, when documented at the
time of discharge.
Thank you,
Ivon Kim RN, BSN
CDI Specialist
Available via [employer] text
Please use your independent medical judgment in providing your response.
[2025-08-23 11:37] LABS: Ferritin 358.0 ng/ml (11.1-264.0)
[2025-08-23] MEDS: FERRLECIT 110 MG IV (14:46)
[2025-08-23 16:00] VITALS: BP 143/72
--- NOTE | 2025-08-23 16:11 | PTCARENOTE ---
since patient was advance to low residue diet, tolerating diet, incontinent of brown liquid stool, turns with assist x1-1, cachectic.vss, will continue to monitor.
--- NOTE | 2025-08-23 16:58 | CM ---
Addendum entered by Mitzi Luna RN 08/23/25 17:01:
Place SNF referrals after PT OT completed.
Original Note:
Spoke with patient she said she wants to return to [facility]
Spoke with [place] at [facility] no beds till next week.
Requested PT OT from . Pt will need Auth to return to SNF.
PAC Data list given to patient to request additional SNF.
PLAN Needs PT OT eval ,Locate SNF, obtain auth
[2025-08-23] MEDS: REMERON 7.5 MG PO (21:31)
[2025-08-23] MEDS: ULTRAM 50 MG PO (21:32)
[2025-08-23 23:25] VITALS: BP 153/66
[2025-08-24 05:25] VITALS: BMI 15.3
[2025-08-24 07:05] VITALS: BP 143/79
[2025-08-24] MEDS: HYDREA 500 MG PO ×2 (08:03→20:42)
[2025-08-24] MEDS: COREG 6.25 MG PO ×2 (08:03→20:41)
[2025-08-24] MEDS: PROTONIX 40 MG PO ×2 (08:03→20:42)
[2025-08-24] MEDS: ENTRESTO 24 MG/26 MG 1 TAB PO ×2 (08:03→20:42)
[2025-08-24] MEDS: CARAFATE 1 GRAM PO ×4 (08:03→21:42)
[2025-08-24] MEDS: LASIX 20 MG PO (08:04)
[2025-08-24 08:41] LABS: Hematocrit 28.7 % (37.0-47.0); Hemoglobin 9.0 g/dL (12.0-16.0); Mean Corp Hgb Conc. 31.4 g/dL (33.0-37.0); Mean Corpuscular Volume 93.8 fL (81.0-99.0); Platelet Count 206 10^3/uL (130-400); Red Cell Dist. Width 26.1 % (11.5-14.5)
[2025-08-24 09:04] LABS: Blood Urea Nitrogen 14 mg/dl (7-17); Calcium 8.8 mg/dl (8.4-10.2); Carbon Dioxide 26 mmol/L (22-30); Chloride 106 mmol/L (98-107); Estimated Creatinine Clearance 53 ml/min; Glucose 78 mg/dl (70-99); Potassium 3.5 mmol/L (3.5-5.1); Sodium 136 mmol/L (135-145); eGFR > 60.00
--- NOTE | 2025-08-24 09:17 | W.PN.HOSP.TC ---
Today's Communication/Plan
-
dc planning
Assessment / Plan
Assessment / Plan
Physical Exam
General: No Apparent Distress and Appears Chronically Ill, under weight
HEENT: Normocephalic and Atraumatic
Respiratory: Negative Wheezes
Abdomen, soft, non tender.
Cardiac: Regular Rhythm and S1/S2
MSK: severe OA deformities, mostly in hands.
Neuro: AO x to self and surroundings, followed simple commands
Psych: Calm
Assessment:
Melena
Acute symptomatic GI bleed
pancytopenia
acute blood loss anemia on chronic iron deficiency anemia
HGB 7.8, will need another unit post EGD
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
- held oral iron. GI recommended IV iron course
- s/p 2 units PRBC;
- GI consulted; EGD 08/21 was not finished due to food in stomach,
Status post repeat EGD 08/22/2025 with multiple findings including anastomotic ulcer and also esophageal ulcer, Catalan's with also esophagitis and nodularity noted at the anastomosis. Path is pending but she does have prior history of low-grade
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
- Continue PPI twice daily indefinitely
- Continue Carafate indefinitely
Per GI: - Follow-up with Dr. Jesse Brown. In the office to discuss if she is an operative candidate.
Hypokalemia
-replaced IV and oral
Residual Abdominal abscess/infection at J tube site
Partial gastrectomy Billroth II gastrojejunostomy/ Had J-tube placed on 04/28/2025 due to cachexia, weight loss, gastroparesis, low-grade dysplasia and ulceration at anastomosis
- s/p antibiotic course in May
- not candidate for replacement per Dr. Brown, patient tolerating oral foods
Severe protein calorie malnutrition due to chronic illness/gastroparesis
- diet: clears + supplements
- Patient is on Remeron for appetite
hxt of GI ulceration proximal jejunum
Catalan's esophagus/GERD
- Continue Protonix 40 mg twice daily
- holding Carafate pre EGD
Chronic HFrEF
- Resume Entresto and Lasix
Essential HTN
- continue Coreg/Entresto
- Pancytopenia was present on admission and is now resolved.
Hyponatremia
CAD
- Aspirin held
Chronic pain syndrome with opioid dependency, uses Tramadol
due to severe osteoarthritis
c/w Tylenol , Tramadol
Chronic ambulatory dysfunction
DVT ppx: Lovenox
Code: DNR/DNI
Total time spent to see the patient, examine the patient, review data and lab results, discuss treatment plan with patient, nursing staff around 45 minutes
Anticipated Discharge: Within 24 hours
Subjective/Interval History
-
Date of Service: August 24, 2025
No chest pain
No sob
No fevers
Objective Data
-
Labs:
Laboratory Results
08/24/25
07:13
WBC 5.7
Hgb 9.0 L
Hct 28.7 L
Plt Count 206
Sodium 136
Potassium 3.5
Chloride 106
Carbon Dioxide 26
BUN 14
Creatinine 0.6
Glucose 78
Calcium 8.8
Vital Signs:
Vital Signs
Temp Pulse Resp BP Pulse Ox
98.2 F 82 19 143/79 94
08/24/25 07:05 08/24/25 08:03 08/24/25 07:05 08/24/25 08:03 08/24/25 07:05
I&O
08/23/25 08/24/25 08/25/25
06:59 06:59 06:59
Intake Total 720 / 720
Balance 720 / 720
[2025-08-24] MEDS: ULTRAM 50 MG PO ×2 (13:19→21:42)
[2025-08-24] MEDS: FERRLECIT 110 MG IV (14:05)
[2025-08-24 15:05] VITALS: BP 158/81
--- NOTE | 2025-08-24 15:45 | VATNOTE ---
called for 'prabhakar' IV; right upper arm largely infiltrated from Iron infusion. Discontinued. Measured 15cm ling x 11 cm wide. Discoloration obvious from iron. Ice applied and elevated right arm. VAT to follow.
[2025-08-24] MEDS: TYLENOL 1000 MG PO ×2 (16:35→21:42)
[2025-08-24] MEDS: REMERON 7.5 MG PO (21:42)
[2025-08-24 23:00] VITALS: BP 136/68
[2025-08-25 05:23] VITALS: BMI 12.6
[2025-08-25 07:44] VITALS: BP 148/69
[2025-08-25] MEDS: HYDREA 500 MG PO ×2 (07:53→21:45)
[2025-08-25] MEDS: PROTONIX 40 MG PO ×2 (07:54→21:44)
[2025-08-25] MEDS: LASIX 20 MG PO (07:54)
[2025-08-25] MEDS: COREG 6.25 MG PO ×2 (07:54→21:49)
[2025-08-25] MEDS: TYLENOL 1000 MG PO ×3 (07:54→21:44)
[2025-08-25] MEDS: ENTRESTO 24 MG/26 MG 1 TAB PO ×2 (07:54→21:48)
[2025-08-25] MEDS: CARAFATE 1 GRAM PO ×4 (07:55→21:45)
[2025-08-25 09:51] VITALS: BP 136/73; PULSE 71
--- NOTE | 2025-08-25 09:52 | W.PN.HOSP.TC ---
Addendum entered and electronically signed by Isabelle Coyle MD 08/25/25 12:24:
addendum
Patient has history of nonobstructive coronary disease and nonischemic cardiomyopathy. She has had recurrent GI bleeding from multiple ulcerations in the stomach and anastomosis area that have not been able to be controlled with oral medications.
Will continue aggressive care with Carafate and PPI pending surgical evaluation, she might be poor candidate for surgical intervention. BMI is 12 with severe protein caloric malnutrition. Aspirin is a high risk medication at this point with EGD
finding of ulceration/friable mucosa.
Discussed with GI, okay to hold
Discussed with cardiology, okay to hold and follow in outpatient setting
End
Original Note:
Today's Communication/Plan
-
dc
Assessment / Plan
Assessment / Plan
Physical Exam
General: No Apparent Distress and Appears Chronically Ill, under weight
HEENT: Normocephalic and Atraumatic
Respiratory: Negative Wheezes
Abdomen, soft, non tender.
Cardiac: Regular Rhythm and S1/S2
MSK: severe OA deformities, mostly in hands.
Neuro: AO x to self and surroundings, followed simple commands
Psych: Calm
Assessment:
Melena
Acute symptomatic GI bleed
pancytopenia
acute blood loss anemia on chronic iron deficiency anemia
HGB 7.8, will need another unit post EGD
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
- held oral iron. GI recommended IV iron course
- s/p 2 units PRBC;
- GI consulted; EGD 08/21 was not finished due to food in stomach,
Status post repeat EGD 08/22/2025 with multiple findings including anastomotic ulcer and also esophageal ulcer, Catalan's with also esophagitis and nodularity noted at the anastomosis. Path is pending but she does have prior history of low-grade
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
- Continue PPI twice daily indefinitely
- Continue Carafate indefinitely
Per GI: - Follow-up with Dr. Jesse Brown. In the office to discuss if she is an operative candidate.
Hypokalemia
-replaced IV and oral
Residual Abdominal abscess/infection at J tube site
Partial gastrectomy Billroth II gastrojejunostomy/ Had J-tube placed on 04/28/2025 due to cachexia, weight loss, gastroparesis, low-grade dysplasia and ulceration at anastomosis
- s/p antibiotic course in May
- not candidate for replacement per Dr. Brown, patient tolerating oral foods
Severe protein calorie malnutrition due to chronic illness/gastroparesis
- diet: regular+ supplements
- Patient is on Remeron for appetite
hxt of GI ulceration proximal jejunum
Catalan's esophagus/GERD
- Continue Protonix 40 mg twice daily
- back on Carafate
Chronic HFrEF
- Resume Entresto and Lasix
Essential HTN
- continue Coreg/Entresto
- Pancytopenia was present on admission and is now resolved.
Hyponatremia
CAD
- Aspirin held
Chronic pain syndrome with opioid dependency, uses Tramadol
due to severe osteoarthritis
c/w Tylenol , Tramadol
Chronic ambulatory dysfunction
DVT ppx: Lovenox
Code: DNR/DNI
Total discharge time spent to see the patient, examine the patient, review data and lab results, discuss discharge plan with patient, nursing staff around 65 minutes
Anticipated Discharge: Today
Subjective/Interval History
-
Date of Service: August 25, 2025
No new complaints
Agrees to go to SNF
Objective Data
-
Vital Signs:
Vital Signs
Temp Pulse Resp BP Pulse Ox
97.9 F 70 17 148/69 94
08/25/25 07:44 08/25/25 07:54 08/25/25 07:44 08/25/25 07:54 08/25/25 07:44
I&O
08/24/25 08/25/25 08/26/25
06:59 06:59 06:59
Intake Total 960 / 960
Balance 960 / 960
[2025-08-25 09:53] VITALS: BP 136/73; PULSE 71; O2SAT 96
--- NOTE | 2025-08-25 12:08 | W.PN.UPDATE ---
Update Note
Progress Note Update
Called by Dr. Coyle (primary hospitalist) to give our opinion on aspirin. Reviewed patient chart. She has a history of nonobstructive coronary artery disease and significant, recurrent GI bleeding requiring transfusion. Her aspirin can be held as
risk significantly outweighs benefit.
[2025-08-25 15:40] VITALS: BP 116/55
--- NOTE | 2025-08-25 15:42 | CM ---
Patient is cleared for discharge. Pt's plans to take her home; requested [facility] to return. Referral entered in [facility]. CM discussed hiring caregiver services, however pt's feels that he can manage pt's needs with VN.
Plan: Discharge to home today with resumption of [facility]. Pt to go home via car.
[facility]
[2025-08-25] MEDS: ULTRAM 50 MG PO (21:44)
[2025-08-25] MEDS: REMERON 7.5 MG PO (21:44)
[2025-08-25 22:04] VITALS: BP 124/61
[2025-08-26 05:33] VITALS: BMI 13.6
[2025-08-26 07:05] VITALS: BP 135/68
[2025-08-26] MEDS: COREG 6.25 MG PO (09:09)
[2025-08-26] MEDS: CARAFATE 1 GRAM PO ×2 (09:09→13:09)
[2025-08-26] MEDS: ENTRESTO 24 MG/26 MG 1 TAB PO (09:09)
[2025-08-26] MEDS: PROTONIX 40 MG PO (09:09)
[2025-08-26] MEDS: LASIX 20 MG PO (09:09)
[2025-08-26] MEDS: HYDREA 500 MG PO (09:10)
[2025-08-26] MEDS: TYLENOL 1000 MG PO (09:10)
--- NOTE | 2025-08-26 09:49 | W.PN.HOSP.TC ---
Today's Communication/Plan
-
dc
Assessment / Plan
Assessment / Plan
Physical Exam
General: No Apparent Distress and Appears Chronically Ill, under weight
HEENT: Normocephalic and Atraumatic
Respiratory: Negative Wheezes
Abdomen, soft, non tender.
Cardiac: Regular Rhythm and S1/S2
MSK: severe OA deformities, mostly in hands.
Neuro: AO x to self and surroundings, followed simple commands
Psych: Calm
Assessment:
# Discharge plan
Patient was seen by physical therapy and recommended [facility]. fleet dispatch manager was consulted in discharge planning. According to the patient and her , they used up rehab days and unable to afford to go to [facility]
facility. Per residential case manager, home health services was set up for the patient.
Spoke with at length, patient is weak, has poor baseline with severe protein caloric malnutrition/failure to thrive. She has been tolerating oral diet but history of gastroparesis and malnutrition. GI doctor recommended to follow-up with
Dr. Brown and if no surgical options then to consider hospice if continues to decline. is not interested in hospice at present time and would like to take her home and provide care. Patient remains high risk for readmission, infections,
complications because of severe malnutrition. Patient had J-tube for duration and ended up with 2 serious infections that made the patient even weaker ( telling me). . Patient follows with hematology for her anemia/myeloproliferative
disease according to the . I asked the patient her preference and she wanted to go home today. understands that patient was kept in hospital Post EGD for several days to monitor her status. Patient remained stable during the time
and not requiring parenteral treatments.
Melena
Acute symptomatic GI bleed
pancytopenia
acute blood loss anemia on chronic iron deficiency anemia
HGB 7.8, will need another unit post EGD
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
- held oral iron. GI recommended IV iron course
- s/p 2 units PRBC;
- GI consulted; EGD 08/21 was not finished due to food in stomach,
Status post repeat EGD 08/22/2025 with multiple findings including anastomotic ulcer and also esophageal ulcer, Catalan's with also esophagitis and nodularity noted at the anastomosis. Path is pending but she does have prior history of low-grade
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
- Continue PPI twice daily indefinitely
- Continue Carafate indefinitely
Per GI: - Follow-up with Dr. Jesse Brown. In the office to discuss if she is an operative candidate.
Patient has history of nonobstructive coronary disease and nonischemic cardiomyopathy. She has had recurrent GI bleeding from multiple ulcerations in the stomach and anastomosis area that have not been able to be controlled with oral medications.
Will continue aggressive care with Carafate and PPI pending surgical evaluation, she might be poor candidate for surgical intervention. BMI is 12 with severe protein caloric malnutrition. Aspirin is a high risk medication at this point with EGD
finding of ulceration/friable mucosa. Discussed with GI, okay to hold. Discussed with maintenance mechanic operations assistant, okay to hold and follow in outpatient setting
Hypokalemia
-replaced IV and oral
Residual Abdominal abscess/infection at J tube site
Partial gastrectomy Billroth II gastrojejunostomy/ Had J-tube placed on 04/28/2025 due to cachexia, weight loss, gastroparesis, low-grade dysplasia and ulceration at anastomosis
- s/p antibiotic course in May
- not candidate for replacement per Dr. Brown, patient tolerating oral foods
Severe protein calorie malnutrition due to chronic illness/gastroparesis
- diet: regular+ supplements
- Patient is on Remeron for appetite
hxt of GI ulceration proximal jejunum
Catalan's esophagus/GERD
- Continue Protonix 40 mg twice daily
- back on Carafate
Chronic HFrEF
- Resume Entresto and Lasix
Essential HTN
- continue Coreg/Entresto
- Pancytopenia was present on admission and is now resolved.
Hyponatremia
CAD
- Aspirin held
Chronic pain syndrome with opioid dependency, uses Tramadol
due to severe osteoarthritis with bilateral hands deformities
c/w Tylenol , Tramadol
Chronic ambulatory dysfunction
DVT ppx: Lovenox
Code: DNR/DNI
Total discharge time spent to see the patient, examine the patient, review data and lab results, discuss discharge plan with patient and her , nursing staff around 69 minutes
Anticipated Discharge: Today
Subjective/Interval History
-
Date of Service: August 26, 2025
No chest pain
No abd pain
She feels ready for going home
Objective Data
-
Vital Signs:
Vital Signs
Temp Pulse Resp BP Pulse Ox
97.5 F 67 17 135/68 95
08/26/25 07:05 08/26/25 07:05 08/26/25 07:05 08/26/25 07:05 08/26/25 07:05
I&O
08/25/25 08/26/25 08/27/25
06:59 06:59 06:59
Intake Total 960 / 960 1120 / 1120
Balance 960 / 960 1120 / 1120
--- NOTE | 2025-08-26 10:29 | VATNOTE ---
Patient with previous infiltrate to right upper arm. Area without swelling or drainage, but noted to be discolored and tender to touch. Ice pack applied to area. Recommend intermittent cold therapy to affected area. CALVIN Escobedo updated.
--- NOTE | 2025-08-26 13:31 | CM ---
Home today with spouse and [facility] visiting nurses
[facility]
[phone]
--- NOTE | 2025-08-26 15:08 | W.DCSUMMARY ---
Discharge Summary
Discharge Data
Date of Admission: 08/18/25
Date of Discharge: 08/26/25
-
Pending Results: No
Hospital Course
74 years old female from [facility] presented to the ED with dark stools and symptomatic anemia. Hemoccult testing was performed at her facility and reportedly positive. She had weakness and generalized fatigue but no other abdominal pain/discomfort,
nausea/vomiting or other overtly bloody stools. She was previously on antibiotics over the past few weeks given her prior infection, however denied any other fevers or chills. She was on low dose ASA but denies any other blood thinners or
antiplatelets. In ED she was afebrile, BP 118/49, pulse of 63. Hemoglobin was 6.2, down from 8.12 weeks ago. BUN is elevated at 45 with a normal creatinine of 0.7. Potassium was 3.0 the rest of the electrolytes were normal.
Gastroenterology was consulted, patient had EGD back on 02/2025 which demonstrated mucosal changes with BE, food in stomach, and Billroth II with ulcerated mucosa at anastomosis. She was previously evaluated by the GI team back on 05/29/25 and prior
endoscopic evaluation was deferred as felt to have recurrent bleeding from known anastomotic ulcer and again concern LGD from anastomotic ulceration. Previously evaluated by Dr. Brown however not felt to be a surgical candidate. Of note, patient was
scheduled for repeat EGD as an outpatient back on 06/22/[address] Tracey however this was deferred given her recent hospitalization for abdominal wall abscess and yet to be rescheduled. Patient had EGD on August 21 but was not completed
because of retained food/debris throughout the remaining stomach despite n.p.o. status for extended and the procedure was aborted. Repeat EGD on August 22 showed multiple findings including anastomotic ulcer and also esophageal ulcer, Catalan's
with also esophagitis and nodularity noted at the anastomosis. GI doctor recommended Protonix twice a day with Carafate indefinitely. GI also recommended follow-up with Dr. Brown back to discuss operative options. Patient received intravenous iron.
She received total of 2 units of blood transfusions. Patient was kept several days after procedure to monitor her status due to her frailty and severe, nutritional status. She tolerated oral diet. Patient was evaluated by physical therapy and
recommended intermediate facility placement but due to insurance restrictions/ limitations with cost of rehab preventing the patient from going back to SNF ( per : we used up her rehab days). tunnel worker worked with the to
arrange for home care services and home set up. Patient was discharged home in stable condition.
Discharge Plan
-
Patient Disposition: Half-Way/SNF
Discharge Diagnosis/Procedures: # Melena
#Symptomatic Anemia #Acute Blood Loss Anemia
#Acute on Chronic SANDI
#Hx of Gastrectomy/Billroth II
#Hx of Anastomotic Ulceration with LGD c/f malignancy (02/2025)
#Hx of Gastroparesis
#Hx of Previous Abdominal Abscess with prior J-tube (now removed)
#Catalan's Indefinite for Dysplasia
Status post repeat EGD 08/22/2025 with multiple findings including anastomotic ulcer and also esophageal ulcer, Catalan's with also esophagitis and nodularity noted at the anastomosis. Path is pending but she does have prior history of low-grade
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
- Continue PPI twice daily indefinitely
- Continue Carafate indefinitely
Status post 3 units of blood transfusion. He received 6 doses of IV iron
You will need to follow-up with Dr. Jesse Brown in the office as soon as possible to determine if there will be surgical option. You will need to follow-up with Dr. Tracey, GI doctor in the office.
You will need to follow-up with Dr. Barrera for IV infusion in the outpatient setting.
Hold aspirin for now until stabilizing your hemoglobin level
Diet: As tolerated
Referrals:
Ed Tracey MD [Active, Gastroenterology] - in three to four weeks
Carina Hernandez MD [Active, Hematology / Oncology] - in one to two weeks
Jesse Brown MD [Active, Surgical] - in one to two weeks
UNKNOWN - PT NOT,INTERVIEWE [Family Provider]
Prescriptions:
New
sucralfate 1 gram Tablet
1 g PO ACHS Qty: 60 0RF
Continued
pantoprazole 40 MG tablet,delayed release (DR/EC)
40 mg PO BID
ferrous sulfate 142 mg (45 mg iron) Tablet Extended Release
142 mg PO Q48H
carvedilol 12.5 mg Tablet
6.25 mg PO BID
furosemide [Lasix] 20 mg Tablet
20 mg PO DAILY
cholecalciferol (vitamin D3) [Vitamin D3] 25 mcg (1,000 unit) Tablet
25 mcg PO DAILY
acetaminophen [Tylenol] 325 mg Tablet
650 mg PO Q6HPRN PRN (Reason: mild pain)
hydroxyurea 500 mg Capsule
500 mg PO BID
ammonium lactate 12 % Lotion
1 applic TOPICAL BID
magnesium hydroxide [Milk of Magnesia] 400 mg/5 mL Suspension
2,400 mg PO [id number] PRN (Reason: constipation)
bisacodyl [Dulcolax (bisacodyl)] 10 mg Suppository
10 mg WV DAILYPRN PRN (Reason: if no bm aftr mom)
Fleet Enema 19-7 gram/118 mL Enema
118 ml WV DAILYPRN PRN (Reason: if no bm aftr dulcolax)
tramadol 50 mg tablet
50 mg PO HS
tramadol 50 mg tablet
50 mg PO Q8HPRN PRN (Reason: moderarte pain)
mirtazapine 7.5 mg tablet
7.5 mg PO HS
sacubitril-valsartan 24-26 mg tablet
1 tab PO BID
Changed
sennosides-docusate sodium [Senna Plus] 8.6-50 mg tablet
2 tab PO BIDPRN PRN (Reason: Constipation) Qty: 0 0RF
Discontinued
aspirin 81 mg Tablet,Delayed Release (Dr/Ec)
81 mg PO DAILY
Discharge Orders:
Discharge Patient (As Directed); Ordered 08/26/25
Ordered By: Isabelle Coyle
Discharge Date and Time
Discharge Date/Time: 08/26/25 16:42
Print Language: BELARUSIAN
[2025-08-26 15:12] VITALS: BP 105/49
== END 2025-08-26 16:42 | DRG 377 ==
LOC: 3 WEST ACU 21:37
PROVIDERS: Internal Medicine; Internal Medicine Gastroenterology; Nurse Practitioner; Nurse Practitioner Gerontology; ADMITTING PHYSICIAN Internal Medicine; ATTENDING PHYSICIAN Internal Medicine; CONSULT PHYSICIAN Student in an Organized Health Care Education/Training Program; EMERGENCY PHYSICIAN Student in an Organized Health Care Education/Training Program
PROC: 30233N1 Transfusion of Nonautologous Red Blood Cells into Peripheral Vein, Percutaneous Approach (ICD-10-PCS; 2025-08-18)
PROC: 0DB88ZX Excision of Small Intestine, Via Natural or Artificial Opening Endoscopic, Diagnostic (ICD-10-PCS; 2025-08-19)
PROC: 0DBA8ZX Excision of Jejunum, Via Natural or Artificial Opening Endoscopic, Diagnostic (ICD-10-PCS; 2025-08-22)
DX: K25.4 Chronic or unspecified gastric ulcer with hemorrhage (principal); E43 Unspecified severe protein-calorie malnutrition; K65.1 Peritoneal abscess; D62 Acute posthemorrhagic anemia; K22.10 Ulcer of esophagus without bleeding; D61.818 Other pancytopenia; I50.22 Chronic systolic (congestive) heart failure; E87.1 Hypo-osmolality and hyponatremia; Z68.1 Body mass index [BMI] 19.9 or less, adult; F17.200 Nicotine dependence, unspecified, uncomplicated; Z66 Do not resuscitate; Z79.82 Long term (current) use of aspirin; Z53.9 Procedure and treatment not carried out, unspecified reason; Z98.0 Intestinal bypass and anastomosis status; K22.89 Other specified disease of esophagus; K44.9 Diaphragmatic hernia without obstruction or gangrene; E87.6 Hypokalemia; I11.0 Hypertensive heart disease with heart failure; I48.91 Unspecified atrial fibrillation; Z79.899 Other long term (current) drug therapy
CPT/HCPCS: 36430; 80048; 80053; 81003; 81015; 82728; 83540; 83550; 83690; 85014; 85018; 85025; 85027; 86850; 86900; 86901; 86920; 87077; 87086; 87186; 88305; 88341; 88342; 96361; 96374; 97163; 97167; 99285; J2916; P9016